=== PATIENT | female | born 1940 | race African-American/Black ===

== ENCOUNTER 2024-03-27 19:47 | Emergency (ER) | payer OTHER, SELFPAY ==
[2024-03-27 19:58] VITALS: BP 140/50; PULSE 74; RESP 15; TEMP 36.3; O2SAT 98
[2024-03-27 22:23] VITALS: BP 147/60; PULSE 73; RESP 18; O2SAT 100
--- NOTE | 2024-03-27 23:03 | ED_ITS ---
HPI - Abdominal Pain General Chief Complaint: Abdominal Pain Stated Complaint: abdominal pain Time Seen by Provider: 03/27/24 22:11 History of Present Illness HPI narrative: 83-year-old otherwise healthy female presenting to the emergency room with chief complaint of some constipation. Patient states that she felt slightly dehydrated over these last few days and daughter at bedside provides collateral formation stating that she was constipated and got some magnesium citrate at home which alleviated her symptoms and she had a small bowel movement. Patient states that she feels significantly improved after having a bowel movement while in triage. Denies any nauseousness or vomiting. No abdominal pain, pelvic pain, dysuria. No history of surgeries in the abdomen or pelvis. No changes in urination. No fever back pain. Patient was otherwise in her normal state of health but states that she does note she has not been eating and drinking as much in the last few days which daughter corroborates. No recent injuries illnesses or hospitalizations otherwise. Review of Systems 2 Review of Systems: As reviewed above in HPI Exam 2 Narrative: GENERAL: [Well-appearing, well-nourished, and in no acute distress.] HEAD: [Normocephalic, atraumatic.] EYES: [PERRLA and EOMI.] ENT: Nares clear, no rhinorrhea or epistaxis. Mucous membranes moist. NECK: Supple. CHEST: [Clear to auscultation. No respiratory distress.] HEART: [Regular rate and rhythm]. No murmur heard. [Normal peripheral pulses.] ABDOMEN: [Soft, nondistended], [nontender], [No rigidity or guarding] EXTREMITIES: Normal range of motion. [No edema.] SKIN: Warm, dry, no rash. NEURO: [No focal deficits]. Alert and oriented [x3.] PSYCH: [Normal mood and affect.] Course Vital Signs Vital signs: Vital Signs Temperature 36.3 C L 03/27/24 19:58 Pulse Rate 74 03/27/24 19:58 Respiratory Rate 15 03/27/24 19:58 Blood Pressure 140/50 L 03/27/24 19:58 Pulse Oximetry 98 03/27/24 19:58 Temperature 36.3 C L 03/27/24 19:58 Pulse Rate 73 03/28/24 00:44 Respiratory Rate 18 03/28/24 00:44 Blood Pressure 113/54 L 03/28/24 00:44 Pulse Oximetry 99 03/28/24 00:44 MDM - Abdominal Pain MDM Narrative Medical decision making narrative: 83-year-old otherwise healthy appearing female presenting to the emergency room with chief complaint of abdominal pain. One triage she got some magnesium citrate that her daughter provider for and she had a bowel movement with relief of her constipation. Patient states that her pain is now resolved and she has not had any nauseousness or vomiting, fever, chills or back pain. She has a very soft nontender nondistended abdomen overall appears well. Denies any urinary complaints and has no history of surgery to interventions the abdomen pelvis. Her vital signs are reassuring without any significant blood pressure elevations, no tachycardia, fever, hypoxia or respiratory elevations. Given her reassuring abdominal examination and improvement after bowel movement I believe likely diagnosis includes episode of constipation however with her lack of significant p.o. intake last few days she could be dehydrated. Low suspicion for infectious process such as gastroenteritis or urinary tract infection. Lab work was obtained including CBC, CMP, urinalysis. She was provided hydration with fluid bolus and re-evaluated frequently. Workup showed no significant leukocytosis, hemoglobin of 12.9 stable from baseline, normal platelets. Electrolytes within normal limits, normal creatinine, normal glucose and normal hepatic function panel. Negative lipase. Urinalysis shows a contaminated sample with squamous cells but no overt evidence of infectious process. No indications for antibiotics at this time. Patient is asymptomatic while here in the emergency department and given her improvement with hydration and going to the bathroom after using MiraLax prior to arrival I believe she is stable for discharge home at this time with prescription for MiraLax and return precautions as well as follow-up with PCP. Medical Records Attestation: I reviewed the patient's medical records. Lab Data Attestation: I reviewed the patient's lab results. 03/27/24 22:58 03/27/24 22:59 Labs: Lab Results 03/27/24 03/27/24 03/28/24 Range/Units 22:58 22:59 00:56 WBC 10.6 H (4.5-10.0) K/mm3 RBC 4.71 (4.2-5.4) M/mm3 Hgb 12.9 (12.0-15.0) g/dL Hct 40.2 (37.0-47.0) % MCV 85.4 (80-100) fl MCH 27.4 (26-34) pg MCHC 32.1 (32-36) g/dl RDW 13.1 (11.5-14.5) % Plt Count 263 (150-375) k/mm3 MPV 9.8 (7.4-10.4) fl Immature Gran % (Auto) 0.2 (0-0.5) % Neut % (Auto) 79.8 H (45.5-73.1) % Lymph % (Auto) 13.9 L (18.3-44.2) % [place] % (Auto) 5.5 (2.6-8.5) % Eos % (Auto) 0.3 (0-4.4) % Baso % (Auto) 0.3 (0.2-1.2) % Lymph # (Auto) 1.47 (0.9-3.2) K/mm3 [place] # (Auto) 0.6 (0.1-0.6) K/mm3 Eos # (Auto) 0.0 (0-0.3) K/mm3 Baso # (Auto) 0.0 (0.0-0.1) K/mm3 Abs Immat Gran (auto) 0.02 (0.00-0.031) K/mm3 Absolute Neuts (auto) 8.4 H (1.3-6.7) K/mm3 Absolute Nucleated RBC 0.000 (0.0-0.012) K/mm3 Nucleated RBC % 0.0 (0.0-0.2) % Sodium 140 (137-145) mmol/L Potassium 4.0 (3.4-5.0) mmol/L Chloride 103 (98-107) mmol/L Carbon Dioxide 32 H (22-30) mmol/L Anion Gap 5 (4-12) mmol/L BUN 22 H (7-17) mg/dL Creatinine 0.70 (0.7-1.0) mg/dL Estim Creat Clear Calc Not Reportable Estimated GFR > 60 (59 - ) Glucose 182 H (65-110) mg/dL Calcium 9.8 (8.4-10.2) mg/dL Total Bilirubin 0.5 (0.2-1.3) mg/dL AST 30 (14-36) U/L ALT 16 (6-35) U/L Alkaline Phosphatase 99 (38-126) U/L Total Protein 8.0 (6.3-8.2) g/dL Albumin 4.3 (3.5-5.1) g/dL Lipase 39 (23-300) U/L Urine Color Yellow (Yellow) Urine Appearance Cloudy H (Clear) Urine pH 5.5 (5.0-9.0) Ur Specific [place] 1.014 (1.001-1.035) Urine Protein Negative (Negative) mg/dL Urine Glucose (UA) Trace H (Negative) mg/dL Urine Ketones Negative (Negative) mg/dL Ur Blood (Man) Negative (Negative) Urine Nitrate Negative (Negative) Urine Bilirubin Negative (Negative) Urine Urobilinogen 1.0 (<2.0) mg/dL Add Ur Microanalysis Reviewed Leukocyte Esterase Rfl Trace H (Negative) CLAUS/UL Urine RBC 6-10 H (0-2) /hpf Urine WBC 0-5 (0-3) /hpf Ur Squamous Epith Cells Few (Few) /hpf Urine Bacteria 1+ H /hpf Urine Casts 6-10 Hyaline Casts Present (None) /lpf Discharge Plan Discharge Clinical Impression: Constipation, Abdominal pain Patient Disposition: Home, Self-Care Condition: Stable Instructions: Antibiotic Form, Constipation (DC), Abdominal Pain (ED) Additional Instructions: I please follow-up with your primary care provider on outpatient basis, we will prescribe the MiraLax for constipation type symptoms. If you have any worsening or recurrent abdominal pain or any new symptoms please return to the ER for evaluation. Patient Language: Bhutanese Prescriptions: New polyethylene glycol 3350 [Miralax] 17 gram/dose powder 17 g PO BID Qty: 238 0RF Follow-up/Referrals: PHYSICIAN NOT ON STAFF,NONSTAFF [Non-Staff] - Time of Disposition: 02:01
[2024-03-27 23:07] LABS: Basophils Percent Auto 0.3 % (0.2-1.2); Eosinophils Percent Auto 0.3 % (0-4.4); Hematocrit 40.2 % (37.0-47.0); Hemoglobin 12.9 g/dL (12.0-15.0); Immature Granulocyte Absolute 0.02 K/mm3 (0.00-0.031); Immature Granulocyte Percent A 0.2 % (0-0.5); Lymphocytes Absolute Auto 1.47 K/mm3 (0.9-3.2); Lymphocytes Percent Auto 13.9 % (18.3-44.2); Mean Corpuscular HGB Conc 32.1 g/dl (32-36); Mean Corpuscular Hemoglobin 27.4 pg (26-34); Mean Corpuscular Volume 85.4 fl (80-100); Mean Platelet Volume 9.8 fl (7.4-10.4); Monocytes Absolute Auto 0.6 K/mm3 (0.1-0.6); Monocytes Percent Auto 5.5 % (2.6-8.5); Neutrophils Absolute Auto 8.4 K/mm3 (1.3-6.7); Neutrophils Percent Auto 79.8 % (45.5-73.1); Platelet Count Result 263 k/mm3 (150-375); Red Blood Count 4.71 M/mm3 (4.2-5.4); Red Cell Distribution Width 13.1 % (11.5-14.5); White Blood Count 10.6 K/mm3 (4.5-10.0)
[2024-03-27 23:19] LABS: Alanine Aminotransferase 16 U/L (6-35); Albumin Level 4.3 g/dL (3.5-5.1); Alkaline Phosphatase 99 U/L (38-126); Anion Gap 5 mmol/L (4-12); Aspartate Amino Transferase 30 U/L (14-36); Bilirubin,Total 0.5 mg/dL (0.2-1.3); Blood Urea Nitrogen 22 mg/dL (7-17); Calcium 9.8 mg/dL (8.4-10.2); Carbon Dioxide 32 mmol/L (22-30); Chloride 103 mmol/L (98-107); Estimated Glomerular Filt Rate > 60; Glucose 182 mg/dL (65-110); Lipase 39 U/L (23-300); Sodium 140 mmol/L (137-145)
[2024-03-27] MEDS: LACTATED RINGERS 1,000 ML 999 ML IV CONT (23:25)
[2024-03-28 00:44] VITALS: BP 113/54; PULSE 73; RESP 18; O2SAT 99
[2024-03-28 01:13] LABS: Add Urine Microscopic? YES; Appearance Urine Cloudy (Clear); Bacteria Urine 1+ /hpf; Bilirubin Urine Negative (Negative); Blood Urine Negative (Negative); Color Urine Yellow (Yellow); Glucose Urine UA Trace mg/dL (Negative); Hyaline Casts Urine Present /lpf; Ketones Urine Negative (Negative); Leukocyte Esterase Ur Trace LEU/UL (Negative); Need Manual Microscopic Reviewed; Nitrate Urine Negative (Negative); Protein Urine Negative (Negative); Specific Grav Ur 1.014 (1.001-1.035); Squamous Epithelial Cell Urine Few /hpf (Few); WBC Urine 0-5 /hpf (0-3); pH Urine 5.5 (5.0-9.0)
[2024-03-28 02:19] VITALS: BP 145/76; PULSE 76; RESP 18; O2SAT 98
--- OUTSIDE RECORDS SUMMARY | 2024-03-31 14:18 | XMS_ITS | Referral Summary ---
Author Organization [facility] B Address [address] [place] [address] Care Team Providers Care Laundry Attendant Name Role Phone Brian Madera MD Unavailable [phone] Carmelita Olivera MD Primary Care Provide r Encounters Date Type Department Care Team Description 03/30/2024 Telephone [facility] at [address] [phone] Carmelita Olivera MD 03/27/2024 6:[address] [facility] Office Visit [facility] at [address] [place] [phone] Jacquelin Quinteros NP Constipation, unspecified constipation type (Primary Dx) 03/26/2024 Telephone [facility] Primary Care at [address] [phone] Carmelita Olivera MD Hospital Follow Up 03/26/2024 [facility] Organization [address] [place] [phone] Renetta Mcginnis MA 01/30/2024 Telephone [facility] at [address] [place] [phone] GilCarmelita Webb MD Rollator 01/30/2024 Telephone [facility] Primary Care at [address] [place] [phone] Carmelita Olivera MD Persons with Disabilities Certification for Parking Placard 01/23/2024 1:30 PM CDT Office Visit [facility] [address] [facility] [address] [place] [phone] Kate Diaz NP 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); 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) 01/20/2024 Orders Only [facility] Primary [facility] at [address] [place] [phone] Carmelita Olivera MD 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) (Primary Dx); 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) 01/02/2024 7:30 PM CDT Office Visit [facility] at [address] [place] [phone] Kristen Vilchis NP Abscess of skin of neck (Primary Dx) from Last 3 Months Allergies Active Allergy Reactions Criticality Noted Date Comments Quetiapine Hallucinations Medium 05/20/2023 Medications lancets 31 gauge miscIndication s:Type 2 diabetes mellitus with hyperglycemia, without long-term current use of insulin ([facility]) 1 Device daily 100 each 3 10/04/19 21 Active blood-glucose meter kitIndications :Type 2 diabetes mellitus with hyperglycemia, without long-term current use of insulin ([facility]) 1 Device daily 1 each 10/19/19 21 Active blood glucose diagnostic stripIndicatio ns:Type 2 diabetes mellitus with hyperglycemia, without long-term current use of insulin ([facility]) Use one strip to monitor home blood sugars daily. 100 each 3 11/08/19 21 Active coenzyme Q10 100 mg capsule Take 1 capsule (100 mg total) by mouth daily Active sodium chloride (TRISTAN 128) 5 % ophthalmic solution Administer 1 drop into both eyes as needed 02/28/20 23 Active memantine (NAMENDA) 10 mg tablet TAKE 1 TABLET BY MOUTH TWICE A DAY 180 tablet 1 09/12/19 24 Active donepeziL (ARICEPT) 5 mg tablet TAKE 1 TABLET BY MOUTH EVERY DAY AT NIGHT 90 tablet 1 10/09/19 24 Active lisinopriL (PRINIVIL,ZEST RIL) 2.5 mg tabletIndicati ons:Type 2 diabetes mellitus with hyperglycemia, without long-term current use of insulin (HCC),Hyperten winter associated with diabetes (HCC) TAKE 1 TABLET BY MOUTH EVERY DAY 90 tablet 12/18/19 24 Active atorvastatin (LIPITOR) 20 mg tabletIndicati ons:Hyperlipid emia associated with type 2 diabetes mellitus (HCC) TAKE 1 TABLET BY MOUTH EVERY DAY AT NIGHT 90 tablet 1 01/14/20 24 Active amLODIPine (NORVASC) 10 mg tabletIndicati ons:Hypertensi on associated with diabetes (HCC) TAKE 1 TABLET BY MOUTH EVERY DAY AT NIGHT 90 tablet 1 01/14/20 24 Active metFORMIN XR (GLUCOPHAGE XR) 500 mg 24 hr tabletIndicati ons:Type 2 diabetes mellitus with hyperglycemia, without long-term current use of insulin (HCC) TAKE 1 TABLET BY MOUTH EVERY DAY WITH BREAKFAST 90 tablet 1 01/14/20 24 Active LORazepam (ATIVAN) 0.5 mg tabletIndicati ons:Generalize d anxiety disorder TAKE 1 TAB BY MOUTH EVERY MORNING AND 2 TABS EVERY EVENING NEEDED FOR ANXIETY. 90 tablet 03/12/20 24 Active LORazepam (ATIVAN) 0.5 mg tabletIndicati ons:Generalize d anxiety disorder TAKE 1 TAB BY MOUTH EVERY MORNING AND 2 TABS EVERY EVENING NEEDED FOR ANXIETY. 90 tablet 02/13/20 24 024 Discontinued Active Problems Problem Noted Date Diagnosed Date Other chest pain 11/22/2023 Assessment & Plan (11/25/2023 3:28 PM CDT): New concern resolved Likely anxiety/stress induced given history of patient arguing with daughter prior to symptoms ED workup negative See above for ecg and labs F/u if no improvement, report back to ED should chest pain reoccur Nausea 10/23/2023 Assessment & Plan (10/23/2023 2:06 PM CDT): Resolved Possibly a virus that has resolved Cyst of skin 10/23/2023 Assessment & Plan (10/23/2023 2:15 PM CDT): Chronic Worsening Likely a cyst Will refer to plastics for removal Encounter to establish care 09/02/2023 Assessment & Plan (09/03/2023 9:28 AM CDT): Medical hx reviewed and discussed Continue current regimen F/u in 6 months for annual Black eye of right side 06/17/2023 Assessment & Plan (06/24/2023 10:24 PM CDT): Vision unchanged. Reassurance given. Hallucinations 04/25/2023 Assessment & Plan (06/24/2023 10:23 PM CDT): Patient to f/u with neurology, she did not tolerate Seroquel. Assessment & Plan (04/25/2023 2:[address] [facility] [place]): New start on Seroquel, take as directed. Re-evaluate need of continued use of medication at next appointment. Nail fungus 03/05/2023 Assessment & Plan (03/05/2023 1:[address] [facility] [place]): Referred back to podiatry for further treatments. 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 Assessment & Plan (06/24/2023 10:21 PM CDT): Worsening, encouraged patient to follow up with neurology. Continue Namenda. Assessment & Plan (03/05/2023 1:[address] [place]): Stable, currently on memantine. Doing well. Assessment & Plan (09/21/2022 7:35 PM CDT): Stable. Cont. Current prescription medications, memantine. Assessment & Plan (04/02/2022 4:[address] [place]): Stable. Cont. Current prescription medications. Assessment & Plan (09/05/2021 1:48 PM CDT): Worsening, does not want to discontinue Exelon patch at this time. Will consult with psychiatry for further eval/mgmt. Assessment & Plan (03/31/2021 6:[address] [place]): Will start Exelon patches. Decreased hearing of both ears 10/13/2020 Assessment & Plan (10/14/2020 6:22 PM CDT): Referral placed. Type 2 diabetes mellitus wit h hyperglycemia, without long-term current use of insulin 10/03/2020 Assessment & Plan (09/03/2023 9:14 AM CDT): The patient was counseled on a heart-healthy, diabetic-friendly diet, as well as life-style modification. Education provided on the diagnosis and risks of the disease. We will continue to monitor routine labs. Additionally, She was counseled on routine diabetic eye exams, foot exams, and other preventive care. Most recent A1c on file: Lab Results Component Value Date HGBA1C 6.7 (H) 03/18/2023 Continue regimen of metformin 500 mg daily Continue statin and LACIE inhibitor A1c ordered today F/u in 6 months Assessment & Plan (03/05/2023 1:[address] [place]): A1c at goal of less than 8.0, continue current prescription medications, atorvastatin, lisinopril, metformin xr. Assessment & Plan (09/21/2022 7:35 PM CDT): A1c at goal of less than 8.0, continue current prescription medications, atorvastatin, lisinopril, metformin xr. Assessment & Plan (04/02/2022 4:[address] [place]): A1c at goal of less than 8.0, continue current prescription medications. Assessment & Plan (10/08/2021 6:45 PM CDT): A1c at goal, cont current Rx meds. Assessment & Plan (09/05/2021 1:43 PM CDT): A1c at goal of < 8.0. Cont current mgmt. Assessment & Plan (01/09/2021 3:31 PM CDT): Tolerating metformin well. Checking blood sugars in the morning periodically. Blood pressure is well controlled. She is currently on a statin medication. Will have her continue the metformin and recheck hemoglobin A1c and CMP. Will have her follow- up in 6 months. Assessment & Plan (10/14/2020 6:21 PM CDT): Strongly encouraged patient to take medication as prescribed. Patient agreed. Referral to Diab educator placed. Added LACIE-I for kidney protection. BMI 26.0-26.9,adult 09/03/2018 Assessment & Plan (03/26/2020 8:[address] [place] [place]): Weight reduction, daily exercise and dietary modifications recommended. Assessment & Plan (12/04/2019 9:33 AM CDT): Weight reduction, daily exercise and dietary modifications recommended. Assessment & Plan (03/18/2019 12:[address] [place]): Unchanged. Encouraged patient to decrease weight, increase daily exercise, and modify diet. Hypertension associated with diabetes 06/07/2017 Assessment & Plan (09/03/2023 9:21 AM CDT): Bp in the office today BP Readings from Last 1 Encounters: 09/03/23 120/74 Continue current regimen of amlodipine 10 mg daily lisinopril 2.5 mg daily Recommend DASH diet, heart-healthy lifestyle, exercise. Discussed the risks of hypertension. F/u in 6 months Assessment & Plan (03/05/2023 1:[address] [place] [place]): Blood pressure at goal less than 140/90, continue current prescription medications, amlodipine, lisinopril. Assessment & Plan (09/21/2022 7:35 PM CDT): Blood pressure at goal less than 140/90, continue current prescription medications, lisinopril. Assessment & Plan (04/02/2022 4:[address] [place] [place]): Blood pressure is at goal of less than 140/90, continue current prescription medications. Assessment & Plan (10/08/2021 6:42 PM CDT): Elevated, patient did not take her bp meds prior to her arrival here. Encouraged patient to take her meds as directed. Assessment & Plan (10/14/2020 6:21 PM CDT): Not at goal of < 130/80. Added Lisinopril. Cont amlodipine. Assessment & Plan (09/28/2020 7:06 AM CDT): BP at goal of < 150/90. Cont current meds. Assessment & Plan (03/26/2020 8:[address] [place] [place]): Within normal range, low sodium diet recommended. Cont current meds. Assessment & Plan (12/04/2019 9:33 AM CDT): Stable. Cont. Current meds. Assessment & Plan (07/26/2019 8:22 PM CDT): Clinically improved, continue current meds. Assessment & Plan (03/18/2019 12:[address] [place] [place]): Waxing and waning, cont current meds. Assessment & Plan (09/03/2018 5:28 PM CDT): Hypertension is improving with treatment. Continue current treatment regimen. Dietary sodium restriction. Weight loss. Regular aerobic exercise. Continue current medications. Ambulatory blood pressure monitoring. Blood pressure will be reassessed at the next regular appointment. Amlodipine 10 mg qd Assessment & Plan (08/06/2018 6:36 PM CDT): Hypertension is improving with treatment. Continue current treatment regimen. Dietary sodium restriction. Weight loss. Regular aerobic exercise. Continue current medications. Ambulatory blood pressure monitoring. Blood pressure will be reassessed at the next regular appointment. Assessment & Plan (03/14/2018 12:[address] [place] [place]): Hypertension is improving with treatment. Continue current treatment regimen. Dietary sodium restriction. Weight loss. Regular aerobic exercise. Continue current medications. Ambulatory blood pressure monitoring. Blood pressure will be reassessed at the next regular appointment. Amlodipine 10 mg qd Assessment & Plan (12/06/2017 12:59 PM CDT): Hypertension is worsening. Continue current treatment regimen. Dietary sodium restriction. Regular aerobic exercise. Continue current medications. amlodipine 10mg qd Blood pressure will be reassessed at the next regular appointment. Assessment & Plan (06/07/2017 1:[address] [place]): Hypertension is unchanged. Continue current treatment regimen. Dietary sodium restriction. Regular aerobic exercise. Continue current medications. Blood pressure will be reassessed at the next regular appointment. Hyperlipidemia associated with type 2 diabetes otoniel spencer 06/07/2017 Assessment & Plan (09/02/2023 12:26 PM CDT): LDL goal of less than 100, continue current prescription medications, atorvastatin. Assessment & Plan (03/05/2023 1:[address] [place] [place]): LDL at goal of less than 100, continue current prescription medications, atorvastatin. Assessment & Plan (09/21/2022 7:34 PM CDT): LDL at goal of less than 100, continue current prescription medications, atorvastatin. Assessment & Plan (04/02/2022 4:[address] [place]): LDL at goal of less than 100, continue current prescription medications. Assessment & Plan (10/08/2021 6:46 PM CDT): LDL at goal of < 100. Cont current meds. Assessment & Plan (03/31/2021 6:[address] [place] [place]): LDL at goal. Cont current Rx meds. Assessment & Plan (10/14/2020 6:22 PM CDT): LDL at goal of < 70, cont current mgmt. Assessment & Plan (09/28/2020 7:07 AM CDT): Clinically improved, continue current meds. Assessment & Plan (03/26/2020 8:[address] [place]): Good control. Low chol diet recommended. Assessment & Plan (12/04/2019 9:33 AM CDT): Stable. Cont. Current meds. Assessment & Plan (07/26/2019 8:22 PM CDT): Stable. Cont. Current meds. Assessment & Plan (03/18/2019 12:[address] [place]): Clinically improved, continue current meds. Assessment & Plan (09/03/2018 5:29 PM CDT): Lipid abnormalities are improving with treatment. Nutritional counseling was provided. and Pharmacotherapy as ordered. Lipids will be reassessed 4 months. Atorvastatin 20 mg qd Assessment & Plan (08/06/2018 6:36 PM CDT): Lipid abnormalities are improving with treatment. Nutritional counseling was provided. and Pharmacotherapy as ordered. Lipids will be reassessed 4 months. lipitor 10 mg qhs Assessment & Plan (03/14/2018 12:[address] [place]): Lipid abnormalities are improving with treatment. Nutritional counseling was provided. and Pharmacotherapy as ordered. Lipids will be reassessed 4 months. Atorvastatin 20mg po qd Assessment & Plan (12/06/2017 1:00 PM CDT): Lipid abnormalities are improving with treatment. Nutritional counseling was provided. and Pharmacotherapy as ordered. lipitor 20mg qd Lipids will be reassessed in 6 months. Assessment & Plan (06/07/2017 1:[address] [place]): Lipid abnormalities are unchanged. Nutritional counseling was provided. and Pharmacotherapy as ordered. Lipids will be reassessed in 6 months. Generalized anxiety disorder 06/07/2017 Assessment & Plan (07/31/2023 3:45 PM CDT): Clinically improved, continue current prescription medications, lorazepam. Assessment & Plan (06/24/2023 10:22 PM CDT): Agree to increase lorazepam to 0.5 mg qam and 1 mg qpm. Assessment & Plan (04/25/2023 2:[address] [place]): Will add Seroquel to daily regiment. Continue lorazepam as needed. Assessment & Plan (03/05/2023 1:[address] [place]): Clinically improved, continue current prescription medications, lorazepam. Assessment & Plan (09/21/2022 7:34 PM CDT): Clinically improved, continue current prescription medications, lorazepam. Assessment & Plan (04/02/2022 4:[address] [place]): Clinically improved, continue current prescription medications. Assessment & Plan (10/08/2021 6:46 PM CDT): Clinically improved, continue current prescription medications. Assessment & Plan (03/31/2021 6:[address] [place] [place]): Stable. Cont. Current prescription medications. Assessment & Plan (01/09/2021 3:31 PM CDT): Anxiety has been controlled. Will continue on lorazepam p.r.n. Assessment & Plan (09/28/2020 7:07 AM CDT): Stable. Cont. Current meds. Assessment & Plan (03/26/2020 8:[address] [place]): Clinically improved, continue current meds. Assessment & Plan (12/04/2019 9:33 AM CDT): Clinically improved, continue current meds. Assessment & Plan (07/26/2019 8:22 PM CDT): Clinically improved, continue current meds. Assessment & Plan (03/18/2019 12:[address] [place]): Clinically improved, continue current meds. Assessment & Plan (09/03/2018 5:29 PM CDT): Psychological condition is improving with treatment. Continue current treatment regimen. Regular aerobic exercise. Psychological condition will be reassessed at the next regular appointment. Lorazepam 0.5 mg q6h prn Assessment & Plan (08/06/2018 6:37 PM CDT): Stable. Cont. Current meds. Assessment & Plan (03/14/2018 12:[address] [place] [place]): Stable. Cont. Current meds. Lorazepam 0.5 mg q6 h prn Assessment & Plan (12/06/2017 1:00 PM CDT): At baseline, continue lorazepam 0.5 mg q6h prn Assessment & Plan (06/07/2017 1:[address] [place]): Stable. Refill given. Resolved Problems Problem Noted Date Diagnosed Date Resolved Date Pure hypercholesterolemia 03/30/2021 Elevated glucose 09/28/2020 10/13/2020 Immunizations Name Administration Dates Next Due Influenza, Quadrivalent, Hig h Dose, Preservative Free, Intrr 03/05/2023,04/02/2022,01/09/2021,03/24 Influenza, Trivalent, High D ose, Split, Preservative Free, Intramuscular 03/18/2019,03/14/2018 Influenza, Unspecified 03/08/2017,01/14/2016 Pfizer SARS-CoV-2 Monovalent Vaccination (12+ Yrs) PURPLE 09/24/2020,09/03/2020 Pneumococcal Conjugate PCV 13 03/14/2018 Pneumococcal Polysaccharide PPV23 02/06/2011 Tdap 01/14/2016 Tetanus Toxoid, Unspecified 02/06/2011 Social History Tobacco Use Types Packs/Day Years Used Date Smoking Tobacco: Never Smokeless Tobacco: Never Tobacco Cessation:Counseling Given: Not Answered Alcohol Use Standard Drinks/Week Comments No 0 (1 standard drink = 0.6 oz pur e alcohol) [facility] Utilities Answer Date Recorded In the past 12 months has th e electric, gas, oil, or water company threatened to shut off services in your home? No 12/17/2023 Social Connection and Isolat ion Panel [NHANES] Answer Date Recorded Frequency of Communication w ith Friends and Family Not on file 12/17/2023 How often do you get togethe r with friends or relatives? More than three times a week 12/17/2023 How often do you attend chur ch or christianity services? Never 12/17/2023 Do you belong to any clubs o r organizations such as orthodoxy groups, unions, fraternal or athletic groups, or school groups? No 12/17/2023 How often do you attend meet ings of the clubs or organizations you belong to? Never 12/17/2023 Are you , , di vorced, , never , or living with a partner? 12/17/2023 AUDIT-C Answer Date Recorded Q1: How often do you have a drink containing alcohol? Never 10/23/2023 Q2: How many drinks containi ng alcohol do you have on a typical day when you are drinking? Patient does not drink Q3: How often do you have si x or more drinks on one occasion? Never 10/23/2023 Overall Financial Resource Strain (CARDIA) Answe r Date Recorded How hard is it for you to pa y for the very basics like food, housing, medical care, and heating? Not hard at all 12/17/2023 PHQ-2 Answer Date Recorded PHQ-2 Total Score (If total score is 3 or more points, staff should administer the PHQ-9) 0 11/25/2023 Hunger Vital Sign Answer Date Recorded Within the past 12 months, y ou worried that your food would run out before you got the money to buy more. Never true 12/17/19 24 Within the past 12 months, t he food you bought just didn't last and you didn't have money to get more. Never true 12/17/2023 PRAPARE - Transportation Answer Date Re corded In the past 12 months, has l ack of transportation kept you from medical appointments or from getting medications? No 06/2023 In the past 12 months, has l ack of transportation kept you from meetings, work, or from getting things needed for daily living? No 12/17/2023 Housing Stability Vital Sign Answer Roger e Recorded In the last 12 months, was t here a time when you were not able to pay the mortgage or rent on time? No 12/17/2023 In the past 12 months, how m any times have you moved where you were living? 1 12/17/2023 At any time in the past [address] [facility], were you homeless or living in a senior care (including now)? No 12/17/2023 Personal Safety Answer Date Recorded Have you ever been in or are you currently in a harmful physical or emotional relationship or is someone making you feel afraid or unsafe? Denies 11/20/2023 Comments No Sex and Gender Information Value Date Recorded Sex Assigned at Not on file Legal Sex Female 8:[address] [facility] [place] Gender Identity Female 04/25/2021 2:[address] [place] Sexual Orientation Straight 04/25/2021 2: [address] [place] Last Filed Vital Signs Vital Sign Reading Time Taken Comments Blood Pressure 134/78 03/27/2024 6:[address] [place] Pulse 67 03/27/2024 6:[address] [place] Temperature 36.6 ??C (97.8 ??F) 03/27/2024 6:33 PM CS T Respiratory Rate 15 03/27/2024 6:[address] [place] Oxygen Saturation 99% 03/27/2024 6:[address] [place] [place] Inhaled Oxygen Concentration - - Weight 58.1 kg (128 lb) 03/27/2024 6:[address] [facility] [place] Height 147.3 cm (4' 10 ) 03/27/2024 6:[address] [place] [place] Body Mass Index 26.75 03/27/2024 6:[address] [place] [place] Plan of Treatment Not on file Procedures Procedure Name Priority Date/Time Associated Diagnosis Comments [place] INCISION & DRAINAGE ABSCESS SIMPLE/SINGLE Routine 01/02/2024 7:30 PM CDT Abscess of skin of neck EGFR STAT 11/20/2023 1:47 PM CDT HEMOGLOBIN A1C Routine 09/03/2023 9:42 AM CDT Type 2 diabetes mellitus with hyperglycemia, without long-term current use of insulin (CMS/HCC) (HCC) DIABETES EYE EXAM Routine 05/21/2023 LIPID PANEL Routine 03/18/2023 1:[address] [place] Type 2 diabetes mellitus with hyperglycemia, without long-term current use of insulin (CMS/HCC) (HCC) Hypertension associated with diabetes (HCC) ALBUMIN CREATININE RATIO, URINE Routine 03/18/2023 1:[address] [place] Type 2 diabetes mellitus with hyperglycemia, without long-term current use of insulin (CMS/HCC) (HCC) DIABETES FOOT EXAM Routine 03/05/2023 from Last 3 Months or Most Recently Relevant to Health Maintenance Results * [place] INCISION & DRAINAGE ABSCESS SIMPLE/SINGLE (01/02/2024 7:30 PM CDT) Narrative Kristen Vilchis NP - 01/02/2024 7:30 PM CDT Kristen Vilchis NP ? 01/02/2024 ??7:55 PM Incision and Drainage Performed by: Kristen Vilchis NP Authorized by: Kristen Vilchis NP ?? Consent Given by: ??Patient and guardian Site marked: the procedure site was marked ?? Timeout: prior to procedure the correct patient, procedure, and site was verified ?? Verbal consent obtained: Yes ?? Written consent obtained: No ?? Risks, alternatives, and patient questions discussed: Yes ?? Type: ??Abscess Body area: ??Neck Location details: ??Left anterior neck Anesthesia: ??Local infiltration Medications: ??1 mL lidocaine (PF) 10 mg/mL (1 %) Scalpel size: ??15 Incision type: ??Single straight Incision depth: ??Subcutaneous Complexity: ??Simple Drainage: ??Purulent Drainage amount: ??Moderate Wound treatment: ??Wound left open Packing material: ??None Patient tolerance: ??Patient tolerated the procedure well with no immediate complications us Kristen Vilchis NP IN CLINIC/BEDSIDE ORD ERABLES Final Result * eGFR (11/20/2023 1:47 PM CDT) eGFR 87 >=60 mL/min/1. 73 m2 Comment: Interpretive Data Reference Interval Normal ?>/= 90 mL/min/1.73m2 Mildly decreased* ? 60 - 89 mL/min/1.73m2 Mildly to moderately decreased ?45 - 59 mL/min/1.73m2 Moderately to severely decreased ??30 - 44 mL/min/1.73m2 Severely decreased ?15 - 29 mL/min/1.73m2 Kidney Failure ?< 15 ??mL/min/1.73m2 *Relative to young adult level Estimated glomerular filtration rate is determined by the 2020 CKD-EPI equation recommended by the National [employer] (A Unifying Approach to GFR Estimation: Recommendations of the NKF-ASK Task Force on Reassessing the Inclusion of Race in Diagnosing Kidney Disease, JASN 2020). The CKD-EPI equation should not be used for patients with unstable renal function and has not been validated in children and those over 70. Current interpretive data was last reviewed 2021. Blood 11/20/2023 1:47 PM CDT 11/20/2023 1:57 PM CDT us Tiago Kerr MD LAB BLOOD ORDERABLES Final Res ult [facility] ([place]) 1 [facility] Department [place] [address] * (ABNORMAL) Hemoglobin A1c (09/03/2023 9:42 AM CDT) Hgb A1C 6.7(H) 4.0 - 5.6 % Estimated Average Glucose 146 mg/dL [facility] ([place]) Comment: The ADA recommends reporting an estimated Average Glucose (eAG) with all Hemoglobin A1c results using the equation derived from a study of 507 normal and diabetic adults. ??Minority populations were underrepresented and children were not included. ?? (Diabetes Care 31:8731-0530, 2007). ??The eAG is not equivalent to a fasting glucose. Blood 09/03/2023 9:42 AM CDT 09/03/2023 10:23 AM CDT Carmelita Olivera MD LAB BLOOD ORDERABLES Final Result [facility] ([place]) 1 [facility] Department [place] [address] * DIABETES EYE EXAM (05/21/2023) [facility] SCRIBED DIABETIC DILATED EYE EXAM Normal Historical Provider HEALTH MAINTENANCE Final Result * Albumin Creatinine Ratio, Urine (03/18/2023 1:[address] LIGHT WIRER) [facility] Albumin Ur 47.4 mg/L [facility] ([place]) Comment: Interpretive Data No reference range established. Current interpretive data was last revised 2018. Testing performed by: [address] [place]., [address] Creatinine Ur 383.9 mg/dL [facility] ([place]) Comment: Interpretive Data No reference range established. Current interpretive data was last revised 2018. Testing performed by: [facility], [address] [place] [address]., [id number] Albumin Creatinine Ratio, Ur 12 1 - 29 mg/g [facility] ([place]) Comment:Testing performed by : [address] [address] Urine 03/18/2023 1:[address] LIGHT WIRER 03/19/2023 9:[address] LIGHT WIRER us Jocelynn Coy DO LAB URINE ORDERABLES Final Result [facility] ([place]) 1 [facility] Department [place] [address] * Lipid panel (03/18/2023 1:[address] LIGHT WIRER) Cholesterol 167 30 - 199 mg/dL [facility] ([place]) Comment: Interpretive Data Ages < or = 19 years ??Acceptable: ? <170 mg/dL ??Borderline high: ??170-199 mg/dL ??High: ? >or= 200 mg/dL Ages > or = 20 years ??Desirable: ?<200 mg/dL ??Borderline high: ??200-239 mg/dL ??High: ? >or= 240 mg/dL Literature References: 1. Expert Panel on Integrated Guidelines for Cardiovascular Health and Risk Reduction in Children and Adolescents. Pediatrics 2011;128:S213 2. NCEP Expert Panel. Circulation 2004;110:227 Current Interpretive Data was last revised on 2017. Triglycerides 86 <=149 mg/dL [facility] ([place]) Comment: Interpretive Data Ages < or = 9 years ??Acceptable: ? <75 mg/dL ??Borderline high: ??75-99 mg/dL ??High: ? >or= 100 mg/dL Ages 10 to 20 years ??Acceptable: ? <90 mg/dL ??Borderline high: ??90-129 mg/dL ??High: ? >or= 130 mg/dL Ages > or = 20 years ??Desirable: ?<150 mg/dL ??Borderline high: ??150-199 mg/dL ??High: ? 200-499 mg/dL ?Very high: ?? >or= 499 mg/dL Literature References: 1. Expert Panel on Integrated Guidelines for Cardiovascular Health and Risk Reduction in Children and Adolescents. Pediatrics 2011;128:S213 2. NCEP Expert Panel. Circulation 2004;110:227 Current Interpretive Data was last revised on 2017. HDL 74 >=40 mg/dL JOSE LIRIANO) Comment: Interpretive Data Ages < or = 19 years ??Acceptable: ? >45 mg/dL ??Borderline low: ?? 40-45 mg/dL ??Low: ? <40 mg/dL Ages > or = 20 years ??Desirable: ?>or= 60 mg/dL ??Low: ? <40 mg/dL Literature References: 1. Expert Panel on Integrated Guidelines for Cardiovascular Health and Risk Reduction in Children and Adolescents. Pediatrics 2011;128:S213 2. NCEP Expert Panel. Circulation 2004;110:227 Current Interpretive Data was last revised on 2017. LDL, calculated 76 <=129 mg/dL [facility] ([place]) Comment: Interpretive Data Ages < or = 19 years ??Acceptable: ? <110 mg/dL ??Borderline high: ??110-129 mg/dL ??High: ?>or= 130 mg/dL Ages > or = 20 years ??Optimal: ? <100 mg/dL ??Near optimal: ?100-129 mg/dL ??Borderline high: ?? 130-159 mg/dL ??High: ?>160 mg/dL Literature References: 1. Expert Panel on Integrated Guidelines for Cardiovascular Health and Risk Reduction in Children and Adolescents. Pediatrics 2011;128:S213 2. NCEP Expert Panel. Circulation 2004;110:227 Current Interpretive Data was last revised on 2017. Non-HDL Cholesterol 93 mg/dL [facility] ([place]) Comment: Interpretive Data Ages < or = 19 years ??Acceptable: ?<120 mg/dL ??Borderline high: ??120-144 mg/dL ??High: ?>145 mg/dL Ages > or = 20 years ??When triglycerides are >200 mg/dL, Non-HDL cholesterol is a secondary target of ? therapy with treatment goals that are 30 mg/dL greater than the LDL cholesterol target. ? Literature References: 1. Expert Panel on Integrated Guidelines for Cardiovascular Health and Risk Reduction in Children and Adolescents. Pediatrics 2011;128:S213 2. NCEP Expert Panel. Circulation 2004;110:227 Current Interpretive Data was last revised on 2017. Chol/HDL ratio 2 [facility] ([place]) Blood 03/18/2023 1:[address] LIGHT WIRER 03/18/2023 3:[address] LIGHT WIRER Jocelynn Coy DO LAB BLOOD ORDERABLES Final Result [facility] ([place]) 1 [facility] Department [place] [address] * DIABETES FOOT EXAM (03/05/2023) SCRIBED DIABETIC FOOT EXAM Normal Historical Provider MD HEALTH MAINTENANCE Final Result from Last 3 Months or Most Recently Relevant to Health Maintenance Insurance [facility] Member Subscriber Plan / Payer (Ef fective 2017-Present) Name:Annita Bose Relation to Subscriber:Self Name:Annita Bose Payer ID:[id number] (NAIC) Type:MEDICARE RISK OTHER Address: [place] [id number] [place] [address] [facility] Member Subscriber Plan / Payer ( fective 2017-Present) Name:Annita Bose Relation to Subscriber:Self Name:Annita Bose Payer ID:[id number] (NAIC) Type:MEDICARE RISK OTHER Address: [place] [id number] Care Teams Laundry Attendant Relationship Specialty Start Date End Date Carmelita Olivera MD [address] [facility] [place] [address] PCP - General Family Medicine 09/03/23 Brian Madera MD [address] [facility] [address] [place] [address] Consulting Physician Neurology 04/02/22
--- OUTSIDE RECORDS SUMMARY | 2024-03-31 14:18 | XMS_ITS | Encounter Summary ---
Author Organization [facility] Address [address] [place] [address] Phone Care Team Providers Care Steelworker Name Role Phone Jocelynn Coy Primary Care Provider [phone] Reason for Visit * Reason Comments Cough Generalized Body Aches Encounter Details Date Type Department Care Team (Latest Contact Info) Description 04/20/2023 8:40 AM VMWARE ENGINEER [facility] [address] [place] [address] Shaylee Vogel, SAMPLE GRINDER, GROUP WORK PROGRAM DIRECTOR [address] [place] [address] COVID-19 (Primary Dx); Cough in adult Discharge Disposition: Discharged to home or Selfcare Social History Tobacco Use Types Packs/Day Years Used Date Smoking Tobacco: Never Smokeless Tobacco: Never Tobacco Cessation:Counseling Given: Not Answered Comments No Sex and Gender Information Value Date Recorded Sex Assigned at Not on file Legal Sex Female 9:28 PM CDT Gender Identity Not on file Sexual Orientation Not on file documented as of this encounter Last Filed Vital Signs Vital Sign Reading Time Taken Comments Blood Pressure 122/60 04/20/2023 8:31 AM VMWARE ENGINEER Pulse 66 04/20/2023 8:31 AM VMWARE ENGINEER Temperature 35.9 ??C (96.6 ??F) 04/20/2023 8:31 AM CS T Respiratory Rate 18 04/20/2023 8:31 AM VMWARE ENGINEER Oxygen Saturation 98% 04/20/2023 8:31 AM VMWARE ENGINEER Inhaled Oxygen Concentration - - Weight 59.9 kg (132 lb) 04/20/2023 8:31 AM VMWARE ENGINEER Height - - Body Mass Index - - documented in this encounter Patient Instructions * Patient Instructions* Shaylee Vogel APRN, CNP - 04/20/2023 8:40 AM VMWARE ENGINEER You need to quarantine for at least five days or until your symptoms have resolved. Cover your cough, wash hands frequently. Observe for worsening signs and symptoms. If you develop shortness of breath go to the ER. Tylenol/ Motrin per package directions for fever/chills. OTC cough/cold medications per package directions as desired. If you have high blood pressure you should use Coricidin HBP. Humidifier to the bedroom at night Push fluids Follow up with your pcp in 10-14 days or as needed. RE ENGINEER * Attachments The following attachments cannot be sent through Care Everywhere. * COVID-19: Quarantine and Isolation - [facility] (05/11/21) ([place]) * COVID-19: What to Do If You Are Sick - [facility] (03/22/2021) ([place]) documented in this encounter Progress Notes * Gricelda Green RMA - 04/20/2023 8:40 AM CST Annita Tasia complains of Pt is being seen for a cough, body aches. Pt took a positive covid test. Today's Review of Systems Respiratory: Positive for cough. RE ENGINEER * Gricelda Green RMA - 04/20/2023 8:40 AM CST Per order of Shaylee Vogel APRN, CNP bilateral nasal swab collected for POCT COVID. Patient tolerated well. RE ENGINEER * Shaylee Vogel APRN, CNP - 04/20/2023 8:40 AM CST HPI: Annita Dozier is a 82 y.o. female in the prompt care today for body aches, sore throat, Ruth cough. She has not had a fever or chills. She has had slight headache. Symptoms started Saturday Severity of symptoms is mild Symptoms are has slightly improved Patient is currently taking over the counter ibuprofen and zinc for the symptoms. Smoker: No No pertinent Past, family, or social history was noted There is no problem list on file for this patient. ROS: Review of Systems Constitutional: Negative for chills, fatigue and fever. HENT: Positive for congestion and sore throat. Negative for ear pain, postnasal drip, rhinorrhea, sinus pressure and sinus pain. Eyes: Negative for pain and visual disturbance. Respiratory: Positive for cough. Negative for shortness of breath. Cardiovascular: Negative for chest pain and palpitations. Gastrointestinal: Negative for abdominal pain and vomiting. Genitourinary: Negative for dysuria and hematuria. Musculoskeletal: Positive for myalgias. Negative for arthralgias and back pain. Skin: Negative for color change and rash. Neurological: Positive for headaches. Negative for seizures and syncope. All other systems reviewed and are negative. PE: BP 122/60 (BP Location: Right Arm, BP Position: Sitting, BP Cuff Size: Regular) Pulse 66 Temp 96.6 ??F (35.9 ??C) (Temporal) Resp 18 Wt 132 lb (59.9 kg) SpO2 98% Physical Exam Vitals and nursing note reviewed. Constitutional: Appearance: Normal appearance. She is normal weight. HENT: Right Ear: Tympanic membrane, ear canal and external ear normal. Left Ear: Tympanic membrane, ear canal and external ear normal. Nose: Nose normal. No congestion or rhinorrhea. Mouth/Throat: Mouth: Mucous membranes are moist. Pharynx: Oropharynx is clear. No oropharyngeal exudate or posterior oropharyngeal erythema. Eyes: Conjunctiva/sclera: Conjunctivae normal. Cardiovascular: Rate and Rhythm: Normal rate and regular rhythm. Pulses: Normal pulses. Heart sounds: Normal heart sounds. Pulmonary: Effort: Pulmonary effort is normal. No respiratory distress. Breath sounds: Normal breath sounds. Musculoskeletal: Cervical back: Neck supple. Lymphadenopathy: Cervical: No cervical adenopathy. Skin: General: Skin is warm and dry. Neurological: Mental Status: She is alert. ASSESSMENT/PLAN: Diagnoses and all orders for this visit: COVID-19 Cough in adult - POC SARS-COV-2 BY MOLECULAR Other orders - amLODIPine (NORVASC) 10 MG Tablet; Take 10 mg by mouth nightly. - atorvastatin (LIPITOR) 20 MG Tablet; Take 20 mg by mouth nightly. - lisinopril (PRINIVIL, ZESTRIL) 2.5 MG Tablet; Take 2.5 mg by mouth daily. - LORazepam (ATIVAN) 0.5 MG Tablet; TAKE 1 TABLET BY MOUTH NEEDED FOR ANXIETY. - memantine (NAMENDA) 10 MG Tablet; Take 10 mg by mouth 2 times daily. - metFORMIN (GLUCOPHAGE-XR) 500 MG TABLET SR 24 HR; TAKE 1 TABLET BY MOUTH EVERY DAY WITH BREAKFAST - Ulster-3 1000 MG Capsule; Take by mouth. Patient Instructions You need to quarantine for at least five days or until your symptoms have resolved. Cover your cough, wash hands frequently. Observe for worsening signs and symptoms. If you develop shortness of breath go to the ER. Tylenol/ Motrin per package directions for fever/chills. OTC cough/cold medications per package directions as desired. If you have high blood pressure you should use Coricidin HBP. Humidifier to the bedroom at night Push fluids Follow up with your pcp in 10-14 days or as needed. Chief complaint and all history documented by ancillary staff were reviewed and verified, with additions or corrections, as appropriate. RE ENGINEER documented in this encounter Plan of Treatment Not on file documented as of this encounter Procedures Procedure Name Priority Date/Time Associated Diagnosis Comments POC SARS-COV-2 BY MOLECULAR Routine 04/20/2023 8:39 AM VMWARE ENGINEER Cough in adult documented in this encounter Results * (ABNORMAL) POC SARS-COV-2 BY MOLECULAR (04/20/2023 8:39 AM VMWARE ENGINEER) SARSCOV2 Positive(A ) Negative, INVALID RESULT PROCEDURE CONTROL Valid 04/20/2023 8:39 AM VMWARE ENGINEER Shaylee Vogel APRN, CNP POINT OF CARE TEST ING (MANUAL) Final Result documented in this encounter Visit Diagnoses Diagnosis COVID-19- Primary Cough in adult documented in this encounter Additional Health Concerns Infection Onset Date Last Indicated Resolved Time COVID - 19 04/20/2023 04/20/2023 04/20/2023 8:46 AM VMWARE ENGINEER COVID - 19 Confirmed 04/20/2023 04/20/2023 024 12:16 AM VMWARE ENGINEER documented as of this encounter Care Teams Steelworker Relationship Specialty Start Date End Date Jocelynn Coy DO [address] [facility] [address] [place] [id number] PCP - General Family Medicine 04/20/23 03/24/24 documented as of this encounter
--- OUTSIDE RECORDS SUMMARY | 2024-03-31 14:18 | XMS_ITS | Encounter Summary ---
Author Organization [facility] Care Team Providers Care Timber Surveyor Name Role Phone Carmelita Olivera MD Primary Care Provide r Encounter Details Date Type Department Care Team (Latest Contact Info) Description 03/25/2024 Travel Social History Tobacco Use Types Packs/Day Years Used Date Smoking Tobacco: Never Smokeless Tobacco: Never Comments No Sex and Gender Information Value Date Recorded Sex Assigned at Not on file Legal Sex Female 9:28 PM CDT Gender Identity Not on file Sexual Orientation Not on file documented as of this encounter Plan of Treatment Not on file documented as of this encounter Visit Diagnoses Not on filedocumented in this encounter Care Teams Timber Surveyor Relationship Specialty Start Date End Date Carmelita Olivera MD [address] [place] [address] RACHAEL GARCIA [id number] PCP - General Family Medicine 03/25/24 documented as of this encounter
--- OUTSIDE RECORDS SUMMARY | 2024-03-31 14:18 | XMS_ITS | Encounter Summary ---
Author Organization [facility] Care Team Providers Care Catcher Plug Name Role Phone Jocelynn Coy DO Primary Care Provider [phone] Encounter Details Date Type Department Care Team (Latest Contact Info) Description 04/20/2023 Travel Social History Tobacco Use Types Packs/Day [...] Diagnoses Not on filedocumented in this encounter Additional Health Concerns Infection Onset Date Last Indicated Resolved Time COVID - 19 04/20/2023 04/20/2023 04/20/2023 8:46 AM SWING SAW OPERATOR COVID - 19 Confirmed 04/20/2023 04/20/2023 024 12:16 AM SWING SAW OPERATOR documented as of this encounter Care Teams Catcher Plug Relationship Specialty Start Date End Date Jocelynn Coy DO [address] [place] [address] R[place]HAEL GARCIA [id number] PCP - General Family Medicine 04/20/23 03/24/24 documented as of this encounter
--- OUTSIDE RECORDS SUMMARY | 2024-03-31 14:18 | XMS_ITS | Clinical Summary ---
Author Organization [facility] Medical Office Building B Address [address] [place] [address] Care Team Providers Care Record Label Internship Name Role Phone Brian Madera MD Unavailable [phone] Carmelita Olivera MD Primary Care Provide r Allergies Active Allergy Reactions Criticality Noted Date Comments Quetiapine Hallucinations Medium 05/20/2023 Medications lancets 31 gauge miscIndication s:Type 2 diabetes mellitus with hyperglycemia, without long-term current use of insulin ([facility]) 1 Device daily 100 each 3 10/04/19 21 Active blood-glucose meter kitIndications :Type 2 diabetes mellitus with hyperglycemia, without long-term current use of insulin ([facility]) 1 Device daily 1 each 10/19/19 21 Active blood glucose diagnostic stripIndicatio ns:Type 2 diabetes mellitus with hyperglycemia, without long-term current use of insulin ([facility]) Use one strip to monitor home blood [...] Seroquel. Assessment & Plan (04/25/2023 2:42 PM ELIGIBILITY CONSULTANT): New start on Seroquel, take as directed. Re-evaluate need of continued use of medication at next appointment. Nail fungus 03/05/2023 Assessment & Plan (03/05/2023 1:36 PM ELIGIBILITY CONSULTANT): Referred back to podiatry for further treatments. 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 Assessment & Plan (06/24/2023 10:21 PM CDT): Worsening, encouraged patient to follow up with neurology. Continue Namenda. Assessment & Plan (03/05/2023 1:36 PM ELIGIBILITY CONSULTANT): Stable, currently on memantine. Doing well. Assessment & Plan (09/21/2022 7:35 PM CDT): Stable. Cont. Current prescription medications, memantine. Assessment & Plan (04/02/2022 4:24 PM ELIGIBILITY CONSULTANT): Stable. Cont. Current prescription medications. Assessment & Plan (09/05/2021 1:48 PM CDT): Worsening, does not want to discontinue Exelon patch at this time. Will consult with psychiatry for further eval/mgmt. Assessment & Plan (03/31/2021 6:26 PM ELIGIBILITY CONSULTANT): Will start Exelon patches. Decreased hearing of [...] months Assessment & Plan (03/05/2023 1:35 PM ELIGIBILITY CONSULTANT): A1c at goal of less than 8.0, continue current prescription medications, atorvastatin, lisinopril, metformin xr. Assessment & Plan (09/21/2022 7:35 PM CDT): A1c at goal of less than 8.0, continue current prescription medications, atorvastatin, lisinopril, metformin xr. Assessment & Plan (04/02/2022 4:24 PM ELIGIBILITY CONSULTANT): A1c at goal of less than 8.0, [...] 09/03/2018 Assessment & Plan (03/26/2020 8:15 PM ELIGIBILITY CONSULTANT): Weight reduction, daily exercise and dietary modifications recommended. Assessment & Plan (12/04/2019 9:33 AM CDT): Weight reduction, daily exercise and dietary modifications recommended. Assessment & Plan (03/18/2019 12:18 PM ELIGIBILITY CONSULTANT): Unchanged. Encouraged patient to decrease weight, increase [...] months Assessment & Plan (03/05/2023 1:31 PM ELIGIBILITY CONSULTANT): Blood pressure at goal less than 140/90, continue current prescription medications, amlodipine, lisinopril. Assessment & Plan (09/21/2022 7:35 PM CDT): Blood pressure at goal less than 140/90, continue current prescription medications, lisinopril. Assessment & Plan (04/02/2022 4:24 PM ELIGIBILITY CONSULTANT): Blood pressure is at goal of less [...] meds. Assessment & Plan (03/26/2020 8:15 PM ELIGIBILITY CONSULTANT): Within normal range, low sodium diet recommended. Cont current meds. Assessment & Plan (12/04/2019 9:33 AM CDT): Stable. Cont. Current meds. Assessment & Plan (07/26/2019 8:22 PM CDT): Clinically improved, continue current meds. Assessment & Plan (03/18/2019 12:17 PM ELIGIBILITY CONSULTANT): Waxing and waning, cont current meds. Assessment [...] appointment. Assessment & Plan (03/14/2018 12:51 PM ELIGIBILITY CONSULTANT): Hypertension is improving with treatment. Continue current [...] appointment. Assessment & Plan (06/07/2017 1:13 PM ELIGIBILITY CONSULTANT): Hypertension is unchanged. Continue current treatment regimen. Dietary sodium restriction. Regular aerobic exercise. Continue current medications. Blood pressure will be reassessed at the next regular appointment. Hyperlipidemia associated with type 2 diabetes otoniel spencer 06/07/2017 Assessment & Plan (09/02/2023 12:26 PM CDT): LDL goal of less than 100, continue current prescription medications, atorvastatin. Assessment & Plan (03/05/2023 1:36 PM ELIGIBILITY CONSULTANT): LDL at goal of less than 100, continue current prescription medications, atorvastatin. Assessment & Plan (09/21/2022 7:34 PM CDT): LDL at goal of less than 100, continue current prescription medications, atorvastatin. Assessment & Plan (04/02/2022 4:24 PM ELIGIBILITY CONSULTANT): LDL at goal of less than 100, continue current prescription medications. Assessment & Plan (10/08/2021 6:46 PM CDT): LDL at goal of < 100. Cont current meds. Assessment & Plan (03/31/2021 6:27 PM ELIGIBILITY CONSULTANT): LDL at goal. Cont current Rx meds. Assessment & Plan (10/14/2020 6:22 PM CDT): LDL at goal of < 70, cont current mgmt. Assessment & Plan (09/28/2020 7:07 AM CDT): Clinically improved, continue current meds. Assessment & Plan (03/26/2020 8:15 PM ELIGIBILITY CONSULTANT): Good control. Low chol diet recommended. Assessment & Plan (12/04/2019 9:33 AM CDT): Stable. Cont. Current meds. Assessment & Plan (07/26/2019 8:22 PM CDT): Stable. Cont. Current meds. Assessment & Plan (03/18/2019 12:17 PM ELIGIBILITY CONSULTANT): Clinically improved, continue current meds. Assessment & [...] qhs Assessment & Plan (03/14/2018 12:52 PM ELIGIBILITY CONSULTANT): Lipid abnormalities are improving with treatment. Nutritional counseling was provided. and Pharmacotherapy as ordered. Lipids will be reassessed 4 months. Atorvastatin 20mg po qd Assessment & Plan (12/06/2017 1:00 PM CDT): Lipid abnormalities are improving with treatment. Nutritional counseling was provided. and Pharmacotherapy as ordered. lipitor 20mg qd Lipids will be reassessed in 6 months. Assessment & Plan (06/07/2017 1:13 PM ELIGIBILITY CONSULTANT): Lipid abnormalities are unchanged. Nutritional counseling was provided. and Pharmacotherapy as ordered. Lipids will be reassessed in 6 months. Generalized anxiety disorder 06/07/2017 Assessment & Plan (07/31/2023 3:45 PM CDT): Clinically improved, continue current prescription medications, lorazepam. Assessment & Plan (06/24/2023 10:22 PM CDT): Agree to increase lorazepam to 0.5 mg qam and 1 mg qpm. Assessment & Plan (04/25/2023 2:41 PM ELIGIBILITY CONSULTANT): Will add Seroquel to daily regiment. Continue lorazepam as needed. Assessment & Plan (03/05/2023 1:33 PM ELIGIBILITY CONSULTANT): Clinically improved, continue current prescription medications, lorazepam. Assessment & Plan (09/21/2022 7:34 PM CDT): Clinically improved, continue current prescription medications, lorazepam. Assessment & Plan (04/02/2022 4:23 PM ELIGIBILITY CONSULTANT): Clinically improved, continue current prescription medications. Assessment & Plan (10/08/2021 6:46 PM CDT): Clinically improved, continue current prescription medications. Assessment & Plan (03/31/2021 6:26 PM ELIGIBILITY CONSULTANT): Stable. Cont. Current prescription medications. Assessment & Plan (01/09/2021 3:31 PM CDT): Anxiety has been controlled. Will continue on lorazepam p.r.n. Assessment & Plan (09/28/2020 7:07 AM CDT): Stable. Cont. Current meds. Assessment & Plan (03/26/2020 8:15 PM ELIGIBILITY CONSULTANT): Clinically improved, continue current meds. Assessment & Plan (12/04/2019 9:33 AM CDT): Clinically improved, continue current meds. Assessment & Plan (07/26/2019 8:22 PM CDT): Clinically improved, continue current meds. Assessment & Plan (03/18/2019 12:17 PM ELIGIBILITY CONSULTANT): Clinically improved, continue current meds. Assessment & Plan (09/03/2018 5:29 PM CDT): Psychological condition is improving with treatment. Continue current treatment regimen. Regular aerobic exercise. Psychological condition will be reassessed at the next regular appointment. Lorazepam 0.5 mg q6h prn Assessment & Plan (08/06/2018 6:37 PM CDT): Stable. Cont. Current meds. Assessment & Plan (03/14/2018 12:52 PM ELIGIBILITY CONSULTANT): Stable. Cont. Current meds. Lorazepam 0.5 mg q6 h prn Assessment & Plan (12/06/2017 1:00 PM CDT): At baseline, continue lorazepam 0.5 mg q6h prn Assessment & Plan (06/07/2017 1:13 PM ELIGIBILITY CONSULTANT): Stable. Refill given. Resolved Problems Problem Noted Date Diagnosed Date Resolved Date Pure hypercholesterolemia 03/30/2021 Elevated glucose 09/28/2020 10/13/2020 Encounters Date Type Department Care Team Description 03/30/2024 Telephone [facility] at [address] [phone] Carmelita Olivera MD 03/27/2024 6:30 PM ELIGIBILITY CONSULTANT Office Visit [facility] at [address] [place] [address] Jacquelin Quinteros NP Constipation, unspecified constipation type (Primary Dx) 03/26/2024 Telephone [facility] at [address] [place] [phone] Carmelita Olivera MD Hospital Follow Up 03/26/2024 [facility] Accountable Care Organization [address] [place] [address] Renetta Mcginnis MA 01/30/2024 Telephone [facility] at [address] [phone] Carmelita Olivera MD Rollator 01/30/2024 Telephone [facility] at [address] [place] [phone] Carmelita Olivera MD Persons with Disabilities Certification for Parking Placard 01/23/2024 1:30 PM CDT Office Visit [facility] [address] [facility] [address] [place] [address] Kate Diaz NP 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); 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) 01/20/2024 Orders Only [facility] at [address] [phone] Carmelita Olivera MD 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) (Primary Dx); 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) 01/02/2024 7:30 PM CDT Office Visit [facility] at [address] [phone] Kristen Vilchis NP Abscess of skin of neck (Primary Dx) from Last 3 Months Immunizations Name Administration Dates Next Due Influenza, Quadrivalent, Hig h Dose, Preservative Free, Intrr 03/05/2023,04/02/2022,01/09/2021,03/24 Influenza, Trivalent, High D ose, Split, Preservative Free, Intramuscular 03/18/2019,03/14/2018 Influenza, Unspecified 03/08/2017,01/14/2016 Pfizer SARS-CoV-2 Monovalent Vaccination (12+ Yrs) PURPLE 09/24/2020,09/03/2020 Pneumococcal Conjugate PCV 13 03/14/2018 Pneumococcal Polysaccharide PPV23 02/06/2011 Tdap 01/14/2016 Tetanus Toxoid, Unspecified 02/06/2011 Surgical History Surgery Date Site/Laterality Comments CATARACT EXTRACTION 09/07/2021 Bilateral 09/22/2021 FL FLUORO GUIDED LUMBAR PUNCTURE 01/17/2022 Right Family History Medical History Relation Name Comments Breast cancer Sister 1 Breast cancer Sister 2 Colon cancer Sister 3 Relation Name Status Comments Sister 1 Sister 2 Sister 3 Alive Social History Tobacco Use Types Packs/Day Years Used Date Smoking Tobacco: Never Smokeless Tobacco: Never Tobacco Cessation:Counseling Given: Not Answered Alcohol Use Standard Drinks/Week Comments No 0 (1 standard drink = 0.6 oz pur e alcohol) [facility] Utilities Answer Date Recorded In the past 12 months has e electric, gas, oil, or water company [...] often do you attend chur ch or latter-day services? Never 12/17/2023 Do you belong to any clubs o r organizations such as worship groups, unions, fraternal or athletic groups, or [...] any time in the past 12 m [facility], were you homeless or living in a care home (including now)? No 12/17/2023 Personal Safety Answer Date Recorded Have you ever been in or are you currently in a harmful physical or emotional relationship or is someone making you feel afraid or unsafe? Denies 11/20/2023 Comments No Sex and Gender Information Value Date Recorded Sex Assigned at Not on file Legal Sex Female 8:45 PM ELIGIBILITY CONSULTANT Gender Identity Female 04/25/2021 2:46 PM ELIGIBILITY CONSULTANT Sexual Orientation Straight 04/25/2021 2: 46 PM ELIGIBILITY CONSULTANT Obstetrics History Last Filed Vital Signs Vital Sign Reading Time Taken Comments Blood Pressure 134/78 03/27/2024 6:33 PM ELIGIBILITY CONSULTANT Pulse 67 03/27/2024 6:33 PM ELIGIBILITY CONSULTANT Temperature 36.6 ??C (97.8 ??F) 03/27/2024 6:33 PM CS T Respiratory Rate 15 03/27/2024 6:33 PM ELIGIBILITY CONSULTANT Oxygen Saturation 99% 03/27/2024 6:33 PM ELIGIBILITY CONSULTANT Inhaled Oxygen Concentration - - Weight 58.1 kg (128 lb) 03/27/2024 6:33 PM ELIGIBILITY CONSULTANT Height 147.3 cm (4' 10 ) 03/27/2024 6:33 PM ELIGIBILITY CONSULTANT Body Mass Index 26.75 03/27/2024 6:33 PM ELIGIBILITY CONSULTANT Plan of Treatment Health Maintenance Due Date Last Done Comments Hepatitis B Screening 09/09/1958 Zoster Vaccine (1 of 2) 09/09/1991 Covid-19 Vaccine ( season) 2023 04/19/2022, 04/17/2021, 09/24/2020, Additional history exists Influenza Vaccine (#1) 2023 , 04/02/2022, 01/09/2021, Additional history exists Foot Exam 03/05/2024 03/05/2023, 01/09/2021 Hemoglobin A1C 03/05/2024 09/03/2023, 07/2022, 04/02/2022, Additional history exists Well Visit 65+ 03/05/2024 03/05/2023, 03/15, 03/30/2021, Additional history exists Albumin Creatinine Ratio, Urine 03/18/2024 03/18/2023, 09/04/2021, 10/13/2020 Lipid Panel 03/18/2024 03/18/2023, 03/15, 09/26/2020, Additional history exists eGFR 11/19/2024 11/20/2023, 0710/2023, 06/13/2023, Additional history exists Depression Screening 11/24/2024 11/25/2023, 10/23/2023, 09/03/2023, Additional history exists Fall Risk Assessment 11/24/2024 11/25/2023, 10/23/2023, 09/03/2023, Additional history exists Dilated Eye Exam 05/21/2025 05/21/2023 DTaP/Tdap/Td Vaccine (2 - Td or Tdap) 01/13/2026 01/14/2016 Osteoporosis Screening-Bone Density Scan 03/04/2045 Postponed from 1941 (Patient declined, but will receive in the future) Pneumococcal vaccine 65+ Completed 03/14/2018, 01/14 Procedures Procedure Name Priority Date/Time Associated Diagnosis Comments NH INCISION & DRAINAGE ABSCESS SIMPLE/SINGLE Routine 01/02/2024 7:30 PM CDT Abscess of skin of neck EGFR STAT 11/20/2023 1:47 PM CDT HEMOGLOBIN A1C Routine 09/03/2023 9:42 AM CDT Type 2 diabetes mellitus with hyperglycemia, without long-term current use of insulin (CMS/HCC) (HCC) DIABETES EYE EXAM Routine 05/21/2023 LIPID PANEL Routine 03/18/2023 1:58 PM ELIGIBILITY CONSULTANT Type 2 diabetes mellitus with hyperglycemia, without long-term current use of insulin (CMS/HCC) (HCC) Hypertension associated with diabetes (HCC) ALBUMIN CREATININE RATIO, URINE Routine 03/18/2023 1:58 PM ELIGIBILITY CONSULTANT Type 2 diabetes mellitus with hyperglycemia, without long-term current use of insulin (CMS/HCC) (HCC) DIABETES FOOT EXAM Routine 03/05/2023 from Last 3 Months or Most Recently Relevant to Health Maintenance Results * NH INCISION & DRAINAGE ABSCESS SIMPLE/SINGLE (01/02/2024 7:30 [...] with no immediate complications us Kristen Vilchis GLASS INSTALLER IN CLINIC/BEDSIDE ORD ERABLES Final Result * [...] MD LAB BLOOD ORDERABLES Final Res ult [facility] ([place]) [address] [facility] Department [place] [address] * (ABNORMAL) Hemoglobin A1c (09/03/2023 9:42 AM CDT) Hgb A1C 6.7(H) 4.0 - 5.6 % Estimated Average Glucose 146 mg/dL [facility] MARCELINO ([place]) Comment: The ADA recommends reporting an estimated Average Glucose (eAG) with all Hemoglobin A1c results using the equation derived from a study of 507 normal and diabetic adults. ??Minority populations were underrepresented and children were not included. ?? (Diabetes Care 31:5425-2869, 2007). ??The eAG is not equivalent to a fasting glucose. Blood 09/03/2023 9:42 AM CDT 09/03/2023 10:23 AM CDT Carmelita Olivera MD LAB BLOOD ORDERABLES Final Result JOSE MARCELINO ([place]) 1 [facility] Department [place] [address] * DIABETES EYE EXAM (05/21/2023) SCRIBED DIABETIC DILATED EYE EXAM Normal Historical Provider HEALTH MAINTENANCE Final Result * Albumin Creatinine Ratio, Urine (03/18/2023 1:58 PM ELIGIBILITY CONSULTANT) Albumin Ur 47.4 mg/L [facility] ([place]) Comment: Interpretive Data No reference range established. Current interpretive data was last revised 2018. Testing performed by: [address] [address] Creatinine Ur 383.9 mg/dL JOSE MARCELINO ([place]) Comment: Interpretive Data No reference range established. Current interpretive data was last revised 2018. Testing performed by: [address] [address] Albumin Creatinine Ratio, Ur 12 1 - 29 mg/g [facility] M[facility]ELINO ([place]) Comment:Testing performed by : [address] [address] Urine 03/18/2023 1:58 PM ELIGIBILITY CONSULTANT 03/19/2023 9:36 AM ELIGIBILITY CONSULTANT us Jocelynn Cintron Coy DO LAB URINE ORDERABLES Final Result [facility] ([place]) 1 [facility] Department [place] [address] * Lipid panel (03/18/2023 1:58 PM ELIGIBILITY CONSULTANT) Cholesterol 167 30 - 199 mg/dL JOSE [...] on 2017. HDL 74 >=40 mg/dL JOSE Clarke ([place]) Comment: Interpretive Data Ages < or [...] on 2017. Chol/HDL ratio 2 [facility] ([place]) Blood 03/18/2023 1:58 PM ELIGIBILITY CONSULTANT 03/18/2023 3:53 PM ELIGIBILITY CONSULTANT us Jocelynn Coy DO LAB BLOOD ORDERABLES Final Result JOSE CHARI ([place]) [address] [facility] Department [place] [address] * DIABETES FOOT EXAM (03/05/2023) SCRIBED DIABETIC FOOT EXAM Normal us Historical Provider MD HEALTH MAINTENANCE Final Result from Last 3 Months or Most Recently Relevant to Health Maintenance Insurance [facility] Member Subscriber Plan / Payer (Ef fective 2017-Present) Name:Annita Bose Relation to Subscriber:Self Name:Annita Bose Payer ID:[id number] (NAIC) Type:MEDICARE RISK OTHER Address: [address] [place], [place] [id number] [facility] Member Subscriber Plan / Payer ( fective 2017-Present) Name:Annita Bose Relation to Subscriber:Self Name:Annita Bose Payer ID:[id number] (NAIC) Type:MEDICARE RISK OTHER Address: [place] [id number] Care Teams Record Label Internship Relationship Specialty Start Date End Date Carmelita Olivera MD [address] [place] [address] PCP - General Family Medicine 09/03/23 Brian Madera MD [address] [place] [address] Consulting Physician Neurology 04/02/22
--- OUTSIDE RECORDS SUMMARY | 2024-03-31 14:18 | XMS_ITS | Clinical Summary ---
Author Organization [facility] Address [address] [place] [address] Phone Care Team Providers Care Bingo Cashier Name Role Phone Carmelita Olivera MD Primary Care Provide r Allergies No known active allergies Medications amLODIPine (NORVASC) 10 MG Tablet Take 10 mg by mouth nightly. 3 Active atorvastatin (LIPITOR) 20 MG Tablet Take 20 mg by mouth nightly. 3 Active lisinopril (PRINIVIL, ZESTRIL) 2.5 MG Tablet Take 2.5 mg by mouth daily. 3 Active LORazepam (ATIVAN) 0.5 MG Tablet TAKE 1 TABLET BY MOUTH NEEDED FOR ANXIETY. 3 Active memantine (NAMENDA) 10 MG Tablet Take 10 mg by mouth 2 times daily. 3 Active metFORMIN (GLUCOPHAGE-XR) 500 MG TABLET SR 24 HR TAKE 1 TABLET BY MOUTH EVERY DAY WITH BREAKFAST 3 Active [place]-3 1000 MG Capsule Take by mouth. Activ e Active Problems No known active problems Encounters Date Type Department Care Team Description 03/25/2024 6:31 PM SACK SEWER MACHINE - 03/25/2024 9:24 PM SACK SEWER MACHINE Emergency [facility] [address] [place] [address] Prabhjot Javier MD Visual hallucinations Discharge Disposition: Discharged to home or Selfcare 03/25/2024 Travel from Last 3 Months Social History Tobacco Use Types Packs/Day Years Used Date Smoking Tobacco: Never Smokeless Tobacco: Never Tobacco Cessation:Counseling Given: Not Answered Comments No Sex and Gender Information Value Date Recorded Sex Assigned at Not on file Legal Sex Female 9:28 PM CDT Gender Identity Not on file Sexual Orientation Not on file Last Filed Vital Signs Vital Sign Reading Time Taken Comments Blood Pressure 132/55 03/25/2024 9:15 PM SACK SEWER MACHINE Pulse 64 03/25/2024 9:15 PM SACK SEWER MACHINE Temperature 36.6 ??C (97.9 ??F) 03/25/2024 6:25 PM CS T Respiratory Rate 16 03/25/2024 9:15 PM SACK SEWER MACHINE Oxygen Saturation 97% 03/25/2024 9:15 PM SACK SEWER MACHINE Inhaled Oxygen Concentration - - Weight 58.1 kg (128 lb) 03/25/2024 6:25 PM SACK SEWER MACHINE Height 152.4 cm (5') 03/25/2024 6:25 PM SACK SEWER MACHINE Body Mass Index 25 03/25/2024 6:25 PM SACK SEWER MACHINE Plan of Treatment Health Maintenance Due Date Last Done Comments DEXA Bone Density 1940 Hepatitis C Virus (HCV) Screening 1940 Zoster Immunization (1 of 2) 09/09/1991 Respiratory Syncytial Virus (RSV) Immunization (Adult) (1 - 1-dose 75+ series) 2016 Influenza Immunization (#1) 12/15/202302/14, 04/02/2022, 01/09/2021, Additional history exists SARS-COV-2 Immunization ( season) 2023 09/24/2020, 09/03/2020 DTaP/Tdap/Td Immunization Discontinued 01/14/2016 TdaP Immunization Completed 01/14/2016 Pneumococcal Immunization (65+ years) Completed 03/14/2018, 02/06/2011 Hepatitis B Immunization Aged Out No longer eligible based on patient's age to complete this topic Meningococcal Immunization (ACWY) Aged Out No longer eligible based on patient's age to complete this topic Rotavirus Immunization Aged Out No lo nger eligible based on patient's age to complete this topic Procedures Procedure Name Priority Date/Time Associated Diagnosis Comments CBC WITH AUTO DIFFERENTIAL STAT 03/25/2024 7:22 PM SACK SEWER MACHINE THYROID STIMULATING HORMONE (TSH) STAT 03/25/2024 7:22 PM SACK SEWER MACHINE CMP (COMPREHENSIVE METABOLIC PANEL) STAT 03/25/2024 7:22 PM SACK SEWER MACHINE COMPLETE BLOOD COUNT (CBC) WITH DIFF STAT 03/25/2024 7:22 PM SACK SEWER MACHINE URINALYSIS REFLEX IF INDICATED BY ABNORMAL RESULTS STAT 03/25/2024 6:39 PM SACK SEWER MACHINE from Last 3 Months Results * CBC with Auto Differential (03/25/2024 7:22 PM SACK SEWER MACHINE) [facility] WBC 6.01 4.00 - 12.00 10(3)/mcL 03/25/2024 7:32 PM SACK SEWER MACHINE [facility] RBC 4.56 3.80 - 5.30 10(6)/mcL 03/25/2024 7:32 PM SACK SEWER MACHINE [facility] HEMOGLOBIN (HGB) 12.3 12.0 - 15.8 g/dL 03/25/2024 7:32 PM SACK SEWER MACHINE [facility] HEMATOCRIT (HCT) 38.8 36.0 - 47.0 % 03/25/2024 7:32 PM SACK SEWER MACHINE [facility] MCV 85.1 82.0 - 96.0 fL 03/25/2024 7:32 PM SACK SEWER MACHINE [facility] MCH 27.0 26.0 - 34.0 pg 03/25/2024 7:32 PM SACK SEWER MACHINE [facility] MCHC 31.7 31.0 - 36.0 g/dL 03/25/2024 7:32 PM SACK SEWER MACHINE [facility] PLATELET COUNT 223 140 - 440 10(3)/mcL 03/25/2024 7:32 PM SACK SEWER MACHINE [facility] RDW 13.2 11.8 - 15.5 % 03/25/2024 7:32 PM SACK SEWER MACHINE [facility] MPV 10.5 9.7 - 12.4 fL 03/25/2024 7:32 PM SACK SEWER MACHINE [facility] NEUTROPHILS 54.5 47.0 - 73.0 % 03/25/2024 7:32 PM SACK SEWER MACHINE [facility] LYMPHOCYTES 35.6 18.0 - 42.0 % 03/25/2024 7:32 PM SACK SEWER MACHINE [facility] MONOCYTES 7.8 4.0 - 12.0 % 03/25/2024 7:32 PM SACK SEWER MACHINE [facility] EOSINOPHILS 1.3 0.0 - 5.0 % 03/25/2024 7:32 PM SACK SEWER MACHINE [facility] BASOPHILS 0.8 0.0 - 1.0 % 03/25/2024 7:32 PM SACK SEWER MACHINE [facility] ABSOLUTE NEUTROPHILS 3.27 1.60 - 7.70 10(3)/[facility] 03/25/2024 7:32 PM SACK SEWER MACHINE [facility] ABSOLUTE LYMPHOCYTES 2.14 1.30 - 3.20 10(3)/[facility] 03/25/2024 7:32 PM SACK SEWER MACHINE [facility] ABSOLUTE MONOCYTES 0.47 0.20 - 1.00 10(3)/[facility] 03/25/2024 7:32 PM SACK SEWER MACHINE [facility] ABSOLUTE EOSINOPHIL 0.08 0.00 - 0.40 10(3)/[facility] 03/25/2024 7:32 PM SACK SEWER MACHINE [facility] ABSOLUTE BASOPHILS 0.05 0.00 - 0.10 10(3)/[facility] 03/25/2024 7:32 PM SACK SEWER MACHINE [facility] NRBC PER 100 WBC 0 03/25/20 7:32 PM [facility] Blood Venipuncture / Unknown 03/25/2024 7:22 PM SACK SEWER MACHINE 03/25/2024 7:30 PM SACK SEWER MACHINE us Prabhjot Javier MD HEMATOLOGY ORDERABLES Fin al Result [facility] [address] [place] [address] * Thyroid Stimulating Hormone (TSH) (03/25/2024 7:22 PM SACK SEWER MACHINE) TSH 0.710 0.300 - 5.000 mIU/L 03/25/2024 8:12 PM SACK SEWER MACHINE [facility] Blood Venipuncture / Unknown 03/25/2024 7:22 PM SACK SEWER MACHINE 03/25/2024 7:30 PM SACK SEWER MACHINE us Prabhjot Javier MD CHEMISTRY ORDERABLES Marisel l Result [facility] [address] [place] [address] * (ABNORMAL) CMP (Comprehensive Metabolic Panel) (03/25/2024 7:22 PM SACK SEWER MACHINE) SODIUM 144 136 - 145 mmol/L 03/25/2024 7:54 PM [facility] POTASSIUM 3.8 3.5 - 5.1 mmol/L 03/25/2024 7:54 PM [facility] CHLORIDE 106 98 - 107 mmol/L 03/25/2024 7:54 PM [facility] CO2, VENOUS 29 22 - 30 mmol/L 03/25/2024 7:54 PM [facility] ANION GAP 12.8 <18.0 mmol/L 03/25/2024 7:54 PM [facility] GLUCOSE 156(H) 70 - 99 mg/dL 03/25/2024 7:54 PM [facility] BUN 14 10 - 20 mg/dL 03/25/2024 7:54 PM [facility] CREATININE, BLOOD 0.91 0.60 - 1.00 mg/dL 03/25/2024 7:54 PM [facility] BUN/CREATININE RATIO 15 12 - 20 ratio 03/25/2024 7:54 PM [facility] TOTAL PROTEIN 7.2 6.3 - 8.2 g/dL 03/25/2024 7:54 PM [facility] ALBUMIN 4.0 3.5 - 5.0 g/dL 03/25/2024 7:54 PM [facility] A/G RATIO 1.3 1.0 - 2.2 03/25/2024 7:54 PM SACK SEWER MACHINE [facility] CALCIUM 9.9 8.7 - 10.5 mg/dL 03/25/2024 7:54 PM SACK SEWER MACHINE [facility] T BILI 0.4 0.2 - 1.2 mg/dL 03/25/2024 7:54 PM SACK SEWER MACHINE [facility] SGOT (AST) 17 5 - 34 U/L 03/25/2024 7:54 PM SACK SEWER MACHINE [facility] SGPT (ALT) 13 0 - 55 U/L 03/25/2024 7:54 PM SACK SEWER MACHINE [facility] ALKALINE PHOSPHATASE 76 40 - 150 U/L 03/25/2024 7:54 PM SACK SEWER MACHINE [facility] GFR, ESTIMATED >60 >=60 03/25/2024 7:54 PM SACK SEWER MACHINE [facility] Comment: Creatinine Clearance is the preferred criteria for selecting drug dose adjustments in renally impaired patients. ??The GFR is provided as additional pertinent clinical information. GFR is reported in mL/min/1.73 sq m. Calculation based on the Chronic Kidney Disease Epidemiology Collaboration (CKD- EPI) equation refit without adjustment for race. GFR, EST. >60 >=60 024 7:54 PM SACK SEWER MACHINE [facility] GFR, EST. NONAFRICAN 59(L) >=60 03/25/2024 7:54 PM SACK SEWER MACHINE [facility] Blood Venipuncture / Unknown 03/25/2024 7:22 PM SACK SEWER MACHINE 03/25/2024 7:30 PM SACK SEWER MACHINE us Prabhjot Javier MD CHEMISTRY ORDERABLES Marisel valencia Result [facility] [address] [place] [address] * (ABNORMAL) URINALYSIS REFLEX IF INDICATED BY ABNORMAL RESULTS (03/25/2024 6:39 PM SACK SEWER MACHINE) SPECIFIC GRAVITY 1.025 1.003 - 1.030 03/25/2024 7:42 PM [facility] URINE PH 6.0 5.0 - 9.0 03/25/2024 7:42 PM [facility] WBC ESTERASE 25 /ul(A) Negative 03/25/2024 7:42 PM [facility] NITRITE Negative Negative 03/25/2024 7:42 PM [facility] PROTEIN, RANDOM URINE 30 mg/dL(A) Negative 03/25/2024 7:42 PM [facility] URINE GLUCOSE, QUAL 50 mg/dL(A) Negative 03/25/2024 7:42 PM [facility] URINE KETONES Negative Negative 03/25/2024 7:42 PM [facility] UROBILINOGEN 1 mg/dL(A) Normal mg/dL 03/25/2024 7:42 PM [facility] URINE BLOOD 10 /uL(A) Negative mayela/ul 03/25/2024 7:42 PM [facility] URINALYSIS COLOR Yellow 03/25/20 24 7:42 PM [facility] URINALYSIS CLARITY Clear 03/25/2024 7:42 PM [facility] WBC (Urine) 0-5 Negative, 0-5 /hpf 03/25/2024 7:42 PM [facility] URINE RBC'S 0-2 Negative, 0-2 /hpf 03/25/2024 7:42 PM [facility] EPITHELIAL CELLS Large amount squamous /lpf 03/25/2024 7:42 PM [facility] BACTERIA, URINE Few(A) Negative /hpf 03/25/2024 7:42 PM [facility] Urine URINE SPECIMEN COLLECTION, CLEAN CATCH / Unknown Non-Phlebotomy Collection / Unknown 03/25/2024 6:39 PM SACK SEWER MACHINE 03/25/2024 6:53 PM SACK SEWER MACHINE Prabhjot Javier MD URINE ORDERABLES Final Re sult [facility] [address] [place] [address] from Last 3 Months Insurance MEDICARE C [facility] Care Teams Bingo Cashier Relationship Specialty Start Date End Date Carmelita Olivera MD [address] [place] [address] PCP - General Family Medicine 03/25/24
--- OUTSIDE RECORDS SUMMARY | 2024-03-31 14:18 | XMS_ITS | Encounter Summary ---
Author Organization [facility] Address [address] [place] [address] Phone Care Team Providers Care Bioinformatics Software Engineer Name Role Phone Carmelita Olivera MD Primary Care Provide r Reason for Visit * Reason Comments Altered Mental Status Encounter Details Date Type Department Care Team (Late st Contact Info) Description 03/25/2024 6:31 PM CRANBERRY GROWER - 03/25/2024 9:24 PM [facility]Y [facility]OWER Emergency [facility] Emergency [address] [place] [address] Prabhjot Javier MD [address] [place] [address] Visual hallucinations Discharge Disposition: Discharged to home [...] Comments Blood Pressure 132/55 03/25/2024 9:15 PM [facility]OWER Pulse 64 03/25/2024 9:15 PM [facility]AN[facility] GROWER Temperature 36.6 ??C (97.9 ??F) 03/25/2024 6:25 PM CS T Respiratory Rate 16 03/25/2024 9:15 PM [facility]AN[facility] GROWER Oxygen Saturation 97% 03/25/2024 9:15 PM [facility] GR[facility] Inhaled Oxygen Concentration - - Weight 58.1 kg (128 lb) 03/25/2024 6:25 PM [facility] Height 152.4 cm (5') 03/25/2024 6:25 PM [facility] GROWER Body Mass Index 25 03/25/2024 6:25 PM [facility]AN[facility] GROWER documented in this encounter Discharge Instructions * Discharge Instructions* Prabhjot Javier MD - 03/25/2024 9:15 PM [facility] Continue with your current medications. Follow up with your primary care provider for recheck. BERRY GROWER documented in this encounter Medications at Time of Discharge amLODIPine (NORVASC) 10 MG Tablet Take 10 mg by mouth nightly. 04/03/2023 atorvastatin (LIPITOR) 20 MG Tablet Take 20 mg by mouth nightly. 04/03/2023 lisinopril (PRINIVIL, ZESTRIL) 2.5 MG Tablet Take 2.5 mg by mouth daily. 03/09/2023 LORazepam (ATIVAN) 0.5 MG Tablet TAKE 1 TABLET BY MOUTH NEEDED FOR ANXIETY. 03/05/2023 memantine (NAMENDA) 10 MG Tablet Take 10 mg by mouth 2 times daily. 02/09/2023 metFORMIN (GLUCOPHAGE-XR) 500 MG TABLET SR 24 HR TAKE 1 TABLET BY MOUTH EVERY DAY WITH BREAKFAST 04/03/2023 [place]-3 1000 MG Capsule Take by mouth. documented as of this encounter ED Notes * Summer Escobar RN - 03/25/2024 9:19 PM CST Patient discharged. Discharge instructions and patient educational material reviewed with patient; questions and concerns addressed; patient verbalizes understanding, using teach back. Patient was given 0 prescriptions. Patient was informed no drinking alcohol, driving or operating heavy machinery while taking narcotics or muscle relaxants. Patient discharged per ambulatory mode with self as responsible green party. SL D/C'ed with Trey cath intact. BERRY GROWER * Maggie Pagan RN - 03/25/2024 7:20 PM CST Pt medicated per provider orders. Pt educated on intended effects and side effects of medication and verbalized understanding. Pt able to provide teach- back of education. BERRY GROWER * Yanely Ugalde RN - 03/25/2024 7:17 PM CST Patient presents to ED room 3. No change in patients condition since being seen in triage. See triage note. Assessment as noted. Call light within reach. Will continue to monitor. BERRY GROWER * Prabhjot Javier MD - 03/25/2024 6:59 PM CST Chief Complaint Patient presents with Altered Mental Status Patient is an 83-year-old female with history of dementia along with hypertension and diabetes who he was brought to the emergency room by her caregiver and daughter for increased confusion. She doeshave visual hallucinations but they seemed to be a lot worse lately. She was not have any specific complaints. She did state she was some burning or stinging with urination but that went away. The daughter feels she was urinating more frequently lately. These symptoms has been going for the past 2-3 days. She has not had any signs of infection otherwise such as nausea vomiting or diarrhea. She has not fallen or had any trauma. No current facility-administered medications for this encounter. Current Outpatient Medications Medication Sig Dispense Refill amLODIPine (NORVASC) 10 MG Tablet Take 10 mg by mouth nightly. atorvastatin (LIPITOR) 20 MG Tablet Take 20 mg by mouth nightly. lisinopril (PRINIVIL, ZESTRIL) 2.5 MG Tablet Take 2.5 mg by mouth daily. LORazepam (ATIVAN) 0.5 MG Tablet TAKE 1 TABLET BY MOUTH NEEDED FOR ANXIETY. memantine (NAMENDA) 10 MG Tablet Take 10 mg by mouth 2 times daily. metFORMIN (GLUCOPHAGE-XR) 500 MG TABLET SR 24 HR TAKE 1 TABLET BY MOUTH EVERY DAY WITH BREAKFAST [place]-3 1000 MG Capsule Take by mouth. No Known Allergies Past Medical History Positives Diagnosis Date Arthritis Dementia (HCC) Diabetes mellitus (HCC) Hypertension No past surgical history on file. Social History Socioeconomic History Marital status: Spouse name: Not on file Number of children: Not on file Years of education: Not on file Highest education level: Not on file Occupational History Not on file Tobacco Use Smoking status: Never Smokeless tobacco: Never Substance and Sexual Activity Alcohol use: Not on file Drug use: Not on file Sexual activity: Not on file Other Topics Concern Not on file Social History Narrative Not on file Social Drivers of Health Financial Resource Needs: Low Risk (12/17/2023) Received from [facility] Overall Financial Resource Strain (CARDIA) Difficulty of Paying Living Expenses: Not hard at all Food Insecurity Needs: No Food Insecurity (12/17/2023) Received from [facility] Hunger Vital Sign Worried About Running Out of Food in the Last Year: Never true Ran Out of Food in the Last Year: Never true Transportation Needs: No Transportation Needs (12/17/2023) Received from [facility] PRAPARE - Transportation Lack of Transportation (Medical): No Lack of Transportation (Non-Medical): No Physical Activity: Not on file Stress: Not on file Social Integration: Socially Isolated (12/17/2023) Received from [facility] Social Connection and Isolation Panel [NHANES] Frequency of Communication with Friends and Family: Not on file Frequency of Social Gatherings with Friends and Family: More than three times a week Attends Zoroastrianism Services: Never Active Member of Clubs or Organizations: No Attends Club or Organization Meetings: Never Marital Status: Personal Safety: Not on file Housing Stability: Low Risk (12/17/2023) Received from [facility] Housing Stability Vital Sign Unable to Pay for Housing in the Last Year: No Number of Times Moved in the Last Year: 1 Homeless in the Last Year: No BP 130/50 Pulse 71 Temp 97.9 ??F (36.6 ??C) (Tympanic) Resp 19 Ht 5' (1.524 m) Wt 128 lb (58.1 kg) SpO2 99% BMI 25.00 kg/m?? Review of Systems Constitutional: Negative for activity change, appetite change, chills and fever. HENT: Negative for congestion, ear pain, rhinorrhea, sore throat and trouble swallowing. Eyes: Negative for pain and visual disturbance. Respiratory: Negative for cough, shortness of breath and wheezing. Cardiovascular: Negative for chest pain. Gastrointestinal: Negative for abdominal pain, diarrhea, nausea and vomiting. Genitourinary: Positive for dysuria. Negative for difficulty urinating. Musculoskeletal: Negative for arthralgias and back pain. Skin: Negative for pallor. Neurological: Negative for headaches. Hematological: Negative for adenopathy. Psychiatric/Behavioral: Positive for confusion and hallucinations (visual). Negative for agitation and behavioral problems. All other systems reviewed and are negative. Physical Exam Vitals and nursing note reviewed. Constitutional: General: She is not in acute distress. Appearance: She is well-developed. She is not diaphoretic. HENT: Head: Normocephalic and atraumatic. Eyes: Conjunctiva/sclera: Conjunctivae normal. Pupils: Pupils are equal, round, and reactive to light. Cardiovascular: Rate and Rhythm: Normal rate and regular rhythm. Heart sounds: Normal heart sounds. No murmur heard. No friction rub. No gallop. Pulmonary: Effort: Pulmonary effort is normal. No respiratory distress. Breath sounds: Normal breath sounds. No wheezing or rales. Abdominal: General: Bowel sounds are normal. There is no distension. Palpations: Abdomen is soft. Tenderness: There is no abdominal tenderness. There is no guarding or rebound. Musculoskeletal: General: No tenderness or deformity. Normal range of motion. Cervical back: Normal range of motion and neck supple. Lymphadenopathy: Cervical: No cervical adenopathy. Skin: General: Skin is warm and dry. Coloration: Skin is not pale. Findings: No erythema or rash. Neurological: Mental Status: She is alert and oriented to person, place, and time. Psychiatric: Behavior: Behavior normal. Thought Content: Thought content normal. Judgment: Judgment normal. Procedures Recent Results (from the past 24 hours) URINALYSIS REFLEX IF INDICATED BY ABNORMAL RESULTS Collection Time: 03/25/24 6:39 PM Result Value Ref Range SPECIFIC GRAVITY 1.025 1.003 - 1.030 URINE PH 6.0 5.0 - 9.0 WBC ESTERASE 25 /ul (A) Negative NITRITE Negative Negative PROTEIN, RANDOM URINE 30 mg/dL (A) Negative URINE GLUCOSE, QUAL 50 mg/dL (A) Negative URINE KETONES Negative Negative UROBILINOGEN 1 mg/dL (A) Normal mg/dL URINE BLOOD 10 /uL (A) Negative mayela/ul URINALYSIS COLOR Yellow URINALYSIS CLARITY Clear WBC (Urine) 0-5 Negative, 0-5 /hpf URINE RBC'S 0-2 Negative, 0-2 /hpf EPITHELIAL CELLS Large amount squamous /lpf BACTERIA, URINE Few (A) Negative /hpf CMP (Comprehensive Metabolic Panel) Collection Time: 03/25/24 7:22 PM Result Value Ref Range SODIUM 144 136 - 145 mmol/L POTASSIUM 3.8 3.5 - 5.1 mmol/L CHLORIDE 106 98 - 107 mmol/L CO2, VENOUS 29 22 - 30 mmol/L ANION GAP 12.8 <18.0 mmol/L GLUCOSE 156 (H) 70 - 99 mg/dL BUN 14 10 - 20 mg/dL CREATININE, BLOOD 0.91 0.60 - 1.00 mg/dL BUN/CREATININE RATIO 15 12 - 20 ratio TOTAL PROTEIN 7.2 6.3 - 8.2 g/dL ALBUMIN 4.0 3.5 - 5.0 g/dL A/G RATIO 1.3 1.0 - 2.2 CALCIUM 9.9 8.7 - 10.5 mg/dL T BILI 0.4 0.2 - 1.2 mg/dL SGOT (AST) 17 5 - 34 U/L SGPT (ALT) 13 0 - 55 U/L ALKALINE PHOSPHATASE 76 40 - 150 U/L GFR, ESTIMATED >60 >=60 GFR, EST. >60 >=60 GFR, EST. NONAFRICAN 59 (L) >=60 Thyroid Stimulating Hormone (TSH) Collection Time: 03/25/24 7:22 PM Result Value Ref Range TSH 0.710 0.300 - 5.000 mIU/L CBC with Auto Differential Collection Time: 03/25/24 7:22 PM Result Value Ref Range WBC 6.01 4.00 - 12.00 10(3)/mcL RBC 4.56 3.80 - 5.30 10(6)/mcL HEMOGLOBIN (HGB) 12.3 12.0 - 15.8 g/dL HEMATOCRIT (HCT) 38.8 36.0 - 47.0 % MCV 85.1 82.0 - 96.0 fL MCH 27.0 26.0 - 34.0 pg MCHC 31.7 31.0 - 36.0 g/dL PLATELET COUNT 223 140 - 440 10(3)/mcL RDW 13.2 11.8 - 15.5 % MPV 10.5 9.7 - 12.4 fL NEUTROPHILS 54.5 47.0 - 73.0 % LYMPHOCYTES 35.6 18.0 - 42.0 % MONOCYTES 7.8 4.0 - 12.0 % EOSINOPHILS 1.3 0.0 - 5.0 % BASOPHILS 0.8 0.0 - 1.0 % ABSOLUTE NEUTROPHILS 3.27 1.60 - 7.70 10(3)/mcL ABSOLUTE LYMPHOCYTES 2.14 1.30 - 3.20 10(3)/mcL ABSOLUTE MONOCYTES 0.47 0.20 - 1.00 10(3)/mcL ABSOLUTE EOSINOPHIL 0.08 0.00 - 0.40 10(3)/mcL ABSOLUTE BASOPHILS 0.05 0.00 - 0.10 10(3)/mcL NRBC PER 100 WBC 0 Imaging Results None Medical Decision Making Amount and/or Complexity of Data Reviewed Labs: ordered. Decision-making details documented in ED Course. Radiology: ordered. Decision-making details documented in ED Course. Clinical Impression 1. Dementia (HCC) 2. Visual hallucinations Disposition: Discharge Patient was brought to emergency room by her daughter with signs of increasing confusion. Most of the your occurrences are chronic but seem to be somewhat worse. We did lab work that came back with anormal TSH CMP and CBC. Urinalysis was also unremarkable. I went over these results with the patient and her daughter. We did not find any specific underlying cause for her worsening symptoms. Patient was remained stable throughout her ER visit. We will discharge her back home with her daughter. I recommend she follow up with her primary care provider for recheck BERRY GROWER * Olga Doran RN - 03/25/2024 6:54 PM CST ERP at bedside BERRY GROWER * Selin Griffin RN - 03/25/2024 6:26 PM CST Pt arrives to triage with daughter who complains that the past has been more confused the past day.Daughter states that the pt has dementia and does have hallucinations time to time, but she feels the pt seeing more things than normal. Pt denies any complaints at this time and is able to state where she is, situation, and what year it it. Pt denies any urinary complaints as well, but family would like her checked for a UTI. BERRY GROWER documented in this encounter Plan of Treatment Not on file documented as of this encounter Procedures Procedure Name Priority Date/Time Associated Diagnosis Comments CBC WITH AUTO DIFFERENTIAL STAT 03/25/2024 7:22 PM [facility] THYROID STIMULATING HORMONE (TSH) STAT 03/25/2024 7:22 PM [facility] GROWER CMP (COMPREHENSIVE METABOLIC PANEL) STAT 03/25/2024 7:22 PM [facility] GROWER COMPLETE BLOOD COUNT (CBC) WITH DIFF STAT 03/25/2024 7:22 PM [facility] GROWER URINALYSIS REFLEX IF INDICATED BY ABNORMAL RESULTS STAT 03/25/2024 6:39 PM [facility]Y GROWER documented in this encounter Results * CBC with Auto Differential (03/25/2024 7:22 PM [facility]AN[facility]Y GROWER) WBC 6.01 4.00 - 12.00 10(3)/mcL 03/25/2024 7:32 PM [facility] GROWER [facility] RBC 4.56 3.80 - 5.30 10(6)/mcL 03/25/2024 7:32 PM [facility] GROWER [facility] HEMOGLOBIN (HGB) 12.3 12.0 - 15.8 g/dL 03/25/2024 7:32 PM [facility] GROWER [facility] HEMATOCRIT (HCT) 38.8 36.0 - 47.0 % 03/25/2024 7:32 PM [facility] MCV 85.1 82.0 - 96.0 fL 03/25/2024 7:32 PM [facility] MCH 27.0 26.0 - 34.0 pg 03/25/2024 7:32 PM [facility] MCHC 31.7 31.0 - 36.0 g/dL 03/25/2024 7:32 PM [facility] PLATELET COUNT 223 140 - 440 10(3)/[facility] 03/25/2024 7:32 PM [facility] RDW 13.2 11.8 - 15.5 % 03/25/2024 7:32 PM [facility] MPV 10.5 9.7 - 12.4 fL 03/25/2024 7:32 PM [facility] NEUTROPHILS 54.5 47.0 - 73.0 % 03/25/2024 7:32 PM [facility] LYMPHOCYTES 35.6 18.0 - 42.0 % 03/25/2024 7:32 PM [facility] MONOCYTES 7.8 4.0 - 12.0 % 03/25/2024 7:32 PM [facility] EOSINOPHILS 1.3 0.0 - 5.0 % 03/25/2024 7:32 PM [facility] BASOPHILS 0.8 0.0 - 1.0 % 03/25/2024 7:32 PM [facility] ABSOLUTE NEUTROPHILS 3.27 1.60 - 7.70 10(3)/[facility] 03/25/2024 7:32 PM [facility] ABSOLUTE LYMPHOCYTES 2.14 1.30 - 3.20 10(3)/[facility] 03/25/2024 7:32 PM [facility] ABSOLUTE MONOCYTES 0.47 0.20 - 1.00 10(3)/[facility] 03/25/2024 7:32 PM [facility] ABSOLUTE EOSINOPHIL 0.08 0.00 - 0.40 10(3)/[facility] 03/25/2024 7:32 PM [facility] ABSOLUTE BASOPHILS 0.05 0.00 - 0.10 10(3)/[facility] 03/25/2024 7:32 PM [facility] NRBC PER 100 WBC 0 03/25/20 7:32 PM [facility] Blood Venipuncture / Unknown 03/25/2024 7:22 PM [facility] 03/25/2024 7:30 PM [facility] Prabhjot Javier MD HEMATOLOGY ORDERABLES Fin al Result Performing Organization Address City/[facility]/ZIP Co de Phone Number [facility] [address] [place] [address] * Thyroid Stimulating Hormone (TSH) (03/25/2024 7:22 PM [facility]Y GROWER) TSH 0.710 0.300 - 5.000 mIU/L 03/25/2024 8:12 PM [facility] Blood Venipuncture / Unknown 03/25/2024 7:22 PM [facility] GROWER 03/25/2024 7:30 PM [facility] Prabhjot Javier MD CHEMISTRY ORDERABLES Marisel l Result Performing Organization Address [facility] de Phone Number [facility] [address] [place] [address] * (ABNORMAL) CMP (Comprehensive Metabolic Panel) (03/25/2024 7:22 PM CRAN[facility]Y GROWER) Pathologist [facility] SODIUM 144 136 - 145 mmol/L 03/25/2024 7:54 PM [facility] POTASSIUM 3.8 3.5 - 5.1 mmol/L 03/25/2024 7:54 PM [facility] CHLORIDE 106 98 - 107 mmol/L 03/25/2024 7:54 PM [facility] CO2, VENOUS 29 22 - 30 mmol/L 03/25/2024 7:54 PM [facility] GROWER [facility] ANION GAP 12.8 <18.0 mmol/L 03/25/2024 7:54 PM [facility] GROWER [facility] GLUCOSE 156(H) 70 - 99 mg/dL 03/25/2024 7:54 PM [facility] BUN 14 10 - 20 mg/dL 03/25/2024 7:54 PM [facility] CREATININE, BLOOD 0.91 0.60 - 1.00 mg/dL 03/25/2024 7:54 PM [facility] BUN/CREATININE RATIO 15 12 - 20 ratio 03/25/2024 7:54 PM [facility] TOTAL PROTEIN 7.2 6.3 - 8.2 g/dL 03/25/2024 7:54 PM [facility] ALBUMIN 4.0 3.5 - 5.0 g/dL 03/25/2024 7:54 PM [facility] A/G RATIO 1.3 1.0 - 2.2 03/25/2024 7:54 PM [facility] CALCIUM 9.9 8.7 - 10.5 mg/dL 03/25/2024 7:54 PM [facility] T BILI 0.4 0.2 - 1.2 mg/dL 03/25/2024 7:54 PM [facility] SGOT (AST) 17 5 - 34 U/L 03/25/2024 7:54 PM [facility] SGPT (ALT) 13 0 - 55 U/L 03/25/2024 7:54 PM [facility] ALKALINE PHOSPHATASE 76 40 - 150 U/L 03/25/2024 7:54 PM [facility] GFR, ESTIMATED >60 >=60 03/25/2024 7:54 PM [facility] Comment: Creatinine Clearance is the preferred criteria for selecting drug dose adjustments in renally impaired patients. ??The GFR is provided as additional pertinent clinical information. GFR is reported in mL/min/1.73 sq m. Calculation based on the Chronic Kidney Disease Epidemiology Collaboration (CKD- EPI) equation refit without adjustment for race. GFR, EST. >60 >=60 024 7:54 PM [facility] GFR, EST. NONAFRICAN 59(L) >=60 03/25/2024 7:54 PM [facility] Blood Venipuncture / Unknown 03/25/2024 7:22 PM [facility] 03/25/2024 7:30 PM [facility] GROWER us Prabhjot Javier MD CHEMISTRY ORDERABLES Marisel l Result [facility] [address] [place] [address] * (ABNORMAL) URINALYSIS REFLEX IF INDICATED BY ABNORMAL RESULTS (03/25/2024 6:39 PM [facility] GROWER) SPECIFIC GRAVITY 1.025 1.003 - 1.030 03/25/2024 7:42 PM [facility] GR[facility] URINE PH 6.0 5.0 - 9.0 03/25/2024 7:42 PM [facility] WBC ESTERASE 25 /ul(A) Negative 03/25/2024 7:42 PM [facility] NITRITE Negative Negative 03/25/2024 7:42 PM [facility] PROTEIN, RANDOM URINE 30 mg/dL(A) Negative 03/25/2024 7:42 PM [facility] GR[facility] URINE GLUCOSE, QUAL 50 mg/dL(A) Negative 03/25/2024 7:42 PM [facility] GR[facility] URINE KETONES Negative Negative 03/25/2024 7:42 PM [facility] UROBILINOGEN 1 mg/dL(A) Normal mg/dL 03/25/2024 7:42 PM [facility] URINE BLOOD 10 /uL(A) Negative mayela/ul 03/25/2024 7:42 PM [facility]ERR[facility] GROWER [facility] URINALYSIS COLOR Yellow 03/25/20 24 7:42 PM [facility] URINALYSIS CLARITY Clear 03/25/2024 7:42 PM [facility] WBC (Urine) 0-5 Negative, 0-5 /hpf 03/25/2024 7:42 PM [facility] URINE RBC'S 0-2 Negative, 0-2 /hpf 03/25/2024 7:42 PM [facility] EPITHELIAL CELLS Large amount squamous /lpf 03/25/2024 7:42 PM [facility] GR[facility] BACTERIA, URINE Few(A) Negative /hpf 03/25/2024 7:42 PM [facility] GR[facility] Urine URINE SPECIMEN COLLECTION, CLEAN CATCH / Unknown Non-Phlebotomy Collection / Unknown 03/25/2024 6:39 PM [facility] GROWER 03/25/2024 6:53 PM [facility] GR[facility] us Prabhjot Javier MD URINE ORDERABLES Final Re sult [facility] [address] [place] [address] documented in this encounter Visit Diagnoses Diagnosis Dementia (HCC)- Primary Dementia, unspecified, without behavioral disturbance Visual hallucinations Psychophysical visual disturbances documented in this encounter Administered Medications Inactive Administered Medications - up to 3 most recent administrations Medication Order MAR Action Action Date Dose Rate Site 0.9 % sodium chloride solution at 500 mL/hr, Intravenous, ONCE, 1 dose, On Sat03/25/24 at 1930 New Bag 03/25/2024 7:19 PM [facility]OWER 1,000 mL 500 mL/hr documented in this encounter Active and Recently Administered Medications Times are shown in [facility]ANBERRY GROWER. Scheduled Medication Order 03/23/2024 03/24/2024 03/25/2024 0.9 % sodium chloride solution (COMPLETED) at 500 mL/hr, Intravenous, ONCE, 1 dose, On Sat03/25/24 at 1930 1919 (New Bag - Prov ider: Maggie Pagan RN)[id number] (Stopped - Provider: Summer Escobar RN) documented in this encounter Care Teams Bioinformatics Software Engineer Relationship Specialty Start Date End Date Carmelita Olivera MD [address] [place] [address] PCP - General Family Medicine 03/25/24 documented as of this encounter
--- OUTSIDE RECORDS SUMMARY | 2024-03-31 14:19 | XMS_ITS | Encounter Summary ---
Author Organization [facility] Healthcare Address [address] [place] [address] Care Team Providers Care Picture Framer Name Role Phone Brian Madera MD Unavailable [phone] Carmelita Olivera MD Primary Care Provide r Reason for Visit * Reason Onset Date Comments Insurance 10/22/2023 Encounter Details Date Type Department Care Team (Late st Contact Info) Description 10/22/2023 Telephone [facility] Medical Group Primary Care at [address] [place] [id number] Carmelita Olivera MD [address] [place] [address] [address] [place] [address] Insurance Social History Tobacco Use Types Packs/Day Years Used Date Smoking Tobacco: Never Smokeless Tobacco: Never Alcohol Use Standard Drinks/Week Comments No 0 (1 standard drink = 0.6 oz pur e alcohol) AUDIT-C Answer Date Recorded Q1: How often do you have a drink containing alcohol? Never 10/23/2023 Q2: How many drinks containi ng alcohol do you have on a typical day when you are drinking? Patient does not drink Q3: How often do you have si x or more drinks on one occasion? Never 10/23/2023 PHQ-2 Answer Date Recorded PHQ-2 Total Score (If total score is 3 or more points, staff should administer the PHQ-9) 0 10/23/2023 Personal Safety Answer Date Recorded Have you ever been in or are you currently in a harmful physical or emotional relationship or is someone making you feel afraid or unsafe? Denies 10/20/2023 Comments No Sex and Gender Information Value Date Recorded Sex Assigned at Not on file Legal Sex Female 8:45 PM MALTER OPERATOR Gender Identity Female 04/25/2021 2:46 PM MALTER OPERATOR Sexual Orientation Straight 04/25/2021 2: 46 PM MALTER OPERATOR documented as of this encounter Miscellaneous Notes * Telephone Encounter - Fortunato Gonzalez - 10/22/2023 3:20 PM CDT Called patient to ensure new insurance card was brought to appointment with PCP, insurance card will need current PCP listed Please advise documented in this encounter Plan of Treatment Not on file documented as of this encounter Visit Diagnoses Not on filedocumented in this encounter Care Teams Picture Framer Relationship Specialty Start Date End Date Carmelita Olivera MD [address] [place] [address] PCP - General Family Medicine 09/03/23 Brian Madera MD [address] [place] [address] Consulting Physician Neurology 04/02/22 documented as of this encounter
--- OUTSIDE RECORDS SUMMARY | 2024-03-31 14:19 | XMS_ITS | Encounter Summary ---
Author Organization [facility] Healthcare Address [address] [place] [address] Care Team Providers Care Director Process Name Role Phone Brain Madera MD Unavailable [phone] Carmelita Olivera MD Primary Care Provide r Yuliana Simmons [facility] Unavailable [phone] Reason for Visit * Reason Onset Date Comments Persons with Disabilities Certification for Park rasheeda [place] 01/30/2024 Encounter Details Date Type Department Care Team (Late st Contact Info) Description 01/30/2024 Telephone [facility] Primary Care at [address] [address] Carmelita Olivera MD [address] [place] [address] Persons with Disabilities Certification for Parkinosbaldo [place] Social History Tobacco Use Types Packs/Day Years Used Date Smoking Tobacco: Never Smokeless Tobacco: Never Alcohol Use Standard Drinks/Week Comments No 0 (1 standard drink = 0.6 oz pur e alcohol) [facility] Utilities Answer Date Recorded In the past [...] often do you attend chur ch or hinduism services? Never 12/17/2023 Do you belong to any clubs o r organizations such as samaritan groups, unions, fraternal or athletic groups, or [...] any time in the past 12 m [facility], were you homeless or living in a longterm (including now)? No 12/17/2023 Personal Safety Answer Date Recorded Have you ever been in or are you currently in a harmful physical or emotional relationship or is someone making you feel afraid or unsafe? Denies 11/20/2023 Comments No Sex and Gender Information Value Date Recorded Sex Assigned at Not on file Legal Sex Female 8:45 PM DATA WAREHOUSE ANALYST Gender Identity Female 04/25/2021 2:46 PM DATA WAREHOUSE ANALYST Sexual Orientation Straight 04/25/2021 2: 46 PM DATA WAREHOUSE ANALYST documented as of this encounter Miscellaneous Notes * Telephone Encounter - Delphine Key MA - 02/04/2024 9:29 AM CDT Attempted to contact Annita's daughter with no answer. LMOM to contact the office back. If Annita calls back, please relay message from Dr. Maya. * Telephone Encounter - Carmelita Olivera MD - 02/04/2024 9:25 AM CDT She would need an office visit. She can bring the form to her next visit and it can take up to 5-7 business days for completion * Telephone Encounter - Yuliana Simmons LCSW - 01/30/2024 2:[address] Olivera, My name is Yuliana Simmons LCSW and I am a Clinical Nascar Racer with the [facility]'s ([facility]) Accountable Care Organization (ACO). Ms. Annita Bose's daughter, Toyin, asks if you'd complete the paperwork for Annita to get a handicap placard. I found the following website that appears to be the application that needs to be completed: [email or web address]_[email or web address] Thanks for your time and consideration. Yuliana Simmons, TANMAY, SHERIFFS DETECTIVE Clinical Nascar Racer [facility] ([facility]) Accountable Care Organization (ACO) documented in this encounter Plan of Treatment Not on file documented as of this encounter Visit Diagnoses Not on filedocumented in this encounter Care Teams Director Process Relationship Specialty Start Date End Date Carmelita Olivera MD [address] [facility] [address] [place] [address] PCP - General Family Medicine 09/03/23 Brian Madera MD [address] [facility] [address] [place] [address] Consulting Physician Neurology 04/02/22 Yuliana Simmons LCSW [address] [place] [address] [address] [place] [address] Nascar Racer Manager Chemistry 12/12/23 02/16/24 documented as of this encounter
--- OUTSIDE RECORDS SUMMARY | 2024-03-31 14:19 | XMS_ITS | Encounter Summary ---
Author Organization [facility] Healthcare Address [address] [place] [address] Care Team Providers Care Animal Pathologist Name Role Phone Brian Madera MD Unavailable [phone] Carmelita Olivera MD Primary Care Provide r Reason for Visit * Reason Comments Constipation Stomach pains starte d today at adult day care Encounter Details Date Type Department Care Team (Late st Contact Info) Description 03/27/2024 6:30 PM RANCH MANAGER Office Visit [facility] [place] [address] [place] [address] [address] [place] [address] Jacquelin Quinteros, NORMAN [address] [place] [address] Constipation, unspecified constipation type (Primary Dx) Social History Tobacco Use Types Packs/Day Years Used Date Smoking Tobacco: Never Smokeless Tobacco: Never Tobacco Cessation:Counseling Given: Not Answered Alcohol Use Standard Drinks/Week Comments No 0 (1 standard drink = 0.6 oz pur e alcohol) [facility] Utilities Answer Date Recorded In the past [...] often do you attend chur ch or yazdanism services? Never 12/17/2023 Do you belong to [...] any time in the past 12 m [facility], were you homeless or living in a chcf (including now)? No 12/17/2023 Personal Safety Answer Date Recorded Have you ever been in or are you currently in a harmful physical or emotional relationship or is someone making you feel afraid or unsafe? Denies 11/20/2023 Comments No Sex and Gender Information Value Date Recorded Sex Assigned at Not on file Legal Sex Female 8:45 PM RANCH MANAGER Gender Identity Female 04/25/2021 2:46 PM RANCH MANAGER Sexual Orientation Straight 04/25/2021 2: 46 PM RANCH MANAGER documented as of this encounter Last Filed Vital Signs Vital Sign Reading Time Taken Comments Blood Pressure 134/78 03/27/2024 6:33 PM RANCH MANAGER Pulse 67 03/27/2024 6:33 PM RANCH MANAGER Temperature 36.6 ??C (97.8 ??F) 03/27/2024 6:33 PM CS T Respiratory Rate 15 03/27/2024 6:33 PM RANCH MANAGER Oxygen Saturation 99% 03/27/2024 6:33 PM RANCH MANAGER Inhaled Oxygen Concentration - - Weight 58.1 kg (128 lb) 03/27/2024 6:33 PM RANCH MANAGER Height 147.3 cm (4' 10 ) 03/27/2024 6:33 PM RANCH MANAGER Body Mass Index 26.75 03/27/2024 6:33 PM RANCH MANAGER documented in this encounter Patient Instructions * Patient Instructions* Jacquelin Quinteros NP - 03/27/2024 6:30 PM RANCH MANAGER .talonce H MANAGER documented in this encounter Progress Notes * Jacquelin Quinteros NP - 03/27/2024 6:30 PM CST Images from the original note were not included. Subjective/Objective Patient ID: Annita Bose is a 83 y.o. female. Chief Complaint Constipation (Stomach pains started today at adult day care) Presents to [facility] Care with complaint of sharp rectal pain and pain to upper thighs bilaterally, onset this evening. Patient's daughter reports patient has been unable to have a bowel movement despite several attempts. She took a laxative this evening and is unable to defecate. Review of Systems All systems reviewed and are negative or non contributory for this patient's presentation today other than as stated in the HPI. Physical Exam Eyes: Conjunctiva/sclera: Conjunctivae normal. Cardiovascular: Rate and Rhythm: Normal rate. Pulmonary: Effort: Pulmonary effort is normal. Abdominal: Tenderness: There is no abdominal tenderness. Hernia: No hernia is present. Skin: General: Skin is warm and dry. Neurological: Mental Status: She is alert. Psychiatric: Mood and Affect: Mood normal. Vitals: 03/27/24 1833 BP: 134/78 Pulse: 67 Resp: 15 Temp: 36.6 ??C (97.8 ??F) TempSrc: Oral SpO2: 99% Weight: 58.1 kg (128 lb) Height: 147.3 cm (4' 10 ) No results found for this or any previous visit (from the past 4 hours). Assessment/Plan Patient appears uncomfortable and intermittently raises up to keep buttocks off of chair. Suspicious for fecal impaction. Advised patient to go to emergency room for additional diagnostics. Patient'sdaughter verbalizes understanding. She states she is unsure which emergency room she will go to. Diagnoses and all orders for this visit: Constipation, unspecified constipation type (Primary) Patient Education: Due to diagnostic limitations in the Convenient Care, we are unable to rule out critical problems including cardiac, neurological and abdominal etiologies. Your symptoms and examination today warrantimmediate evaluation in the Emergency Room to rule out a critical diagnosis. I advise you to go directly to the Emergency Room for evaluation. If while in route to the hospital, you experience worsening symptoms including chest pain, shortness of breath, mental status changes, or abdominal pain- call 911 immediately for emergent transportation. Disposition Treatment plan including expectations, follow up, and return precautions discussed with patient/parent, verbalizes understanding. Medication dosage, use, and potential adverse reactions discussed with patient/parent. Advised to follow up with PCP if symptoms do not resolve as expected or sooner if condition worsens. Signs/symptoms warranting ER evaluation reviewed. Patient and/or guardian was given an opportunity to ask questions, questions answered. Jacquelin Quinteros NP H MANAGER documented in this encounter Plan of Treatment Not on file documented as of this encounter Visit Diagnoses Diagnosis Constipation, unspecified constipation type- Primary documented in this encounter Care Teams Animal Pathologist Relationship Specialty Start Date End Date Carmelita Olivera MD [address] [facility] [address] [place] [address] PCP - General Family Medicine 09/03/23 Brian Madera MD [address] [facility] [address] [place] [address] Consulting Physician Neurology 04/02/22 documented as of this encounter
--- OUTSIDE RECORDS SUMMARY | 2024-03-31 14:19 | XMS_ITS | Encounter Summary ---
Author Organization [facility] Healthcare Address [address] [place] [address] Care Team Providers Care Blueprint Processor Name Role Phone Brian Madera MD Unavailable [phone] Carmelita Olivera MD Primary Care Provide r Mikala Sheth MA Unavailable [phone] Reason for Visit * Reason Comments Unsuccessful Phone Call 1 Day 1 - UTC x 1 Encounter Details Date Type Department Care Team (Late st Contact Info) Description 11/21/2023 [place] ED Outreach [facility] Accountable Care Organization [address] [place] [address] Mikala Sheth MA [address] [place] [address] [address] [place] [id number] Social History Tobacco Use Types Packs/Day Years [...] on file Legal Sex Female 8:45 PM MULTIMEDIA SPECIALIST Gender Identity Female 04/25/2021 2:46 PM MULTIMEDIA SPECIALIST Sexual Orientation Straight 04/25/2021 2: 46 PM MULTIMEDIA SPECIALIST documented as of this encounter Progress Notes * Mikala Sheth MA - 11/21/2023 10:13 AM CDT Care high school academic coach attempted to reach patient in relation to patient's recent ED visit at [facility] on 11/20/2023 (5 hours) for Chest pain, unspecified type Anxiety. Patient does need to follow up with primary care physician by 11/27/2023. Care high school academic coach will attempt to reach patient again. Care high school academic coach contact information was not left on patients voicemail due to it being full. [facility] letter sent to patient via [employer] [facility] x 1 outreach attempt. Thank you, Mikala Sheth [facility]CO Care Bunch Maker Hand [facility] [phone] documented in this encounter Plan of Treatment Not on file documented as of this encounter Visit Diagnoses Not on filedocumented in this encounter Care Teams Blueprint Processor Relationship Specialty Start Date End Date Carmelita Olivera MD [address] [facility] [address] [place] [address] PCP - General Family Medicine 09/03/23 Brian Madera MD [address] [facility] [address] [place] [address] Consulting Physician Neurology 04/02/22 Mikala Sheth MA [address] [place] [address] [address] ACO Care Bunch Maker Hand 11/21/23 11/21/23 documented as of this encounter
--- OUTSIDE RECORDS SUMMARY | 2024-03-31 14:19 | XMS_ITS | Encounter Summary ---
Author Organization [facility] Healthcare Address [address] [place] [address] Care Team Providers Care Risk Mgr Name Role Phone Brian Madera MD Unavailable [phone] Carmelita Olivera MD Primary Care Provide r Yuliana Simmons [facility] Unavailable [phone] Reason for Visit * Reason Onset Date Comments Rollator 01/30/2024 Encounter Details Date Type Department Care Team (Late st Contact Info) Description 01/30/2024 Telephone [facility] Primary Care at [address] [place] [id number] Carmelita Olivera MD [address] [place] [address] Rollator Social History Tobacco Use Types Packs/Day Years Used Date Smoking Tobacco: Never Smokeless Tobacco: Never Alcohol Use Standard Drinks/Week Comments No 0 (1 standard drink = 0.6 oz pur e alcohol) [facility] Utilities Answer Date Recorded In [...] often do you attend chur ch or orthodoxy services? Never 12/17/2023 Do you belong to any clubs o r organizations such as anabaptism groups, unions, fraternal or athletic groups, or [...] any time in the past 12 m [facility], were you homeless or living in a senior living (including now)? No 12/17/2023 Personal Safety Answer Date Recorded Have you ever been in or are you currently in a harmful physical or emotional relationship or is someone making you feel afraid or unsafe? Denies 11/20/2023 Comments No Sex and Gender Information Value Date Recorded Sex Assigned at Not on file Legal Sex Female 8:45 PM CHIEF HYDROELECTRIC STATION OPERATOR Gender Identity Female 04/25/2021 2:46 PM CHIEF HYDROELECTRIC STATION OPERATOR Sexual Orientation Straight 04/25/2021 2: 46 PM CHIEF HYDROELECTRIC STATION OPERATOR documented as of this encounter Miscellaneous Notes * Telephone Encounter - Yuliana Simmons LCSW - 01/30/2024 2:[address] Olivera, My name is Yuliana Simmons LCSW and I am a Clinical Hip Hop Artist with the [facility]'s ([facility]) Accountable Care Organization (ACO). The patient's daughter, Toyin, asks if you'd order the patient a rollator. If you're agreeable, please place an order into [employer] and have the order sent to [facility] (they don't check for orders in Epic). [facility] Thanks for your time and consideration. TANMAY Carrillo, ELVIRA Clinical Hip Hop Artist [facility] ([facility]) Accountable Care Organization (ACO) documented in this encounter Plan of Treatment Not on file documented as of this encounter Visit Diagnoses Not on filedocumented in this encounter Care Teams Risk Mgr Relationship Specialty Start Date End Date Carmelita Olivera MD [address] [place] [address] PCP - General Family Medicine 09/03/23 Brian Madera MD [address] [place] [address] Consulting Physician Neurology 04/02/22 Yuliana Simmons, [address] [place] [address] Hip Hop Artist Investor Relations Specialist 12/12/23 02/16/24 documented as of this encounter
--- OUTSIDE RECORDS SUMMARY | 2024-03-31 14:19 | XMS_ITS | Encounter Summary ---
Author Organization [facility] Healthcare Address [address] [place] [address] Care Team Providers Care Tack Welder Name Role Phone Brian Madera MD Unavailable [phone] Carmelita Olivera MD Primary Care Provide r Reason for Visit * Reason Comments Chest Pain ED f/u: Pt states he r chest pain has resolved since ED visit. Encounter Details Date Type Department Care Team (Late st Contact Info) Description 11/25/2023 3:30 PM CDT Office Visit [facility] Group Primary Care at [address] [phone] Carmelita Olivera MD [address] [place] [address] Other chest pain (Primary Dx) Social History Tobacco Use Types [...] staff should administer the PHQ-9) 0 11/25/2023 Personal Safety Answer Date Recorded Have you ever been in or are you currently in a harmful physical or emotional relationship or is someone making you feel afraid or unsafe? Denies 11/20/2023 Comments No Sex and Gender Information Value Date Recorded Sex Assigned at Not on file Legal Sex Female 8:45 PM MARBLE CARVER Gender Identity Female 04/25/2021 2:46 PM MARBLE CARVER Sexual Orientation Straight 04/25/2021 2: 46 PM MARBLE CARVER documented as of this encounter Last Filed Vital Signs Vital Sign Reading Time Taken Comments Blood Pressure 124/62 11/25/2023 3:10 PM CDT Pulse 55 11/25/2023 3:10 PM CDT Temperature 36.9 ??C (98.4 ??F) 11/25/2023 3:10 PM C DT Respiratory Rate 16 11/25/2023 3:10 PM CDT Oxygen Saturation 100% 11/25/2023 3:10 PM CDT Inhaled Oxygen Concentration - - Weight 56.4 kg (124 lb 6.4 oz) 11/25/2023 3:10 P M CDT Height 147.3 cm (4' 10 ) 11/25/2023 3:10 PM CDT Body Mass Index 26 11/25/2023 3:10 PM CDT documented in this encounter Patient Instructions * Patient Instructions* Carmelita Olivera MD - 11/25/2023 3:30 PM CDT My medical research tech and I are thankful you have trusted us with your care, and hope that you received EXCELLENT care today! Please do not hesitate to call if you have any questions or concerns. You may receive a phone call or text asking about your care today. We would love to hear your input and again, hope your visit was as EXCELLENT as possible, even if you were not feeling your best! -Dr. Olivera documented in this encounter Progress Notes * Carmelita Olivera MD - 11/25/2023 3:30 PM CDT Images from the original note were not included. Subjective/Objective Patient ID: Annita Bose is a 83 y.o. female. Chief Complaint Chest Pain (ED f/u: Pt states her chest pain has resolved since ED visit. /) HPI 83 y.o.female coming in for ED follow up for chest pain. Trops negative and other labs are normal. The chest pain ended up being a result of her arguing with her daughter. Discussed working on communication between the two of them. Her daughter is mainly giving instructions so that she does not hurt herself but she would like a bit more independence. Review of Systems Constitutional: Negative for chills and fever. Respiratory: Negative for cough and shortness of breath. Cardiovascular: Negative for chest pain. Gastrointestinal: Negative for abdominal pain. Vitals: 11/25/23 1510 BP: 124/62 BP Location: Left arm Patient Position: Sitting Pulse: 55 Resp: 16 Temp: 36.9 ??C (98.4 ??F) SpO2: 100% Weight: 56.4 kg (124 lb 6.4 oz) Height: 147.3 cm (4' 10 ) Admission on 11/20/2023, Discharged on 11/20/2023 Component Date Value WBC 11/20/2023 6.4 Hgb 11/20/2023 13.0 Hct 11/20/2023 40.5 Plt 11/20/2023 218 MPV 11/20/2023 9.7 RBC 11/20/2023 4.83 MCV 11/20/2023 83.9 MCH 11/20/2023 26.9 (L) MCHC 11/20/2023 32.1 (L) RDW CV 11/20/2023 13.1 RDW SD 11/20/2023 39.9 NRBC abs 11/20/2023 0.00 Sodium 11/20/2023 140 Potassium, pl 11/20/2023 4.0 Chloride 11/20/2023 103 CO2 11/20/2023 28 Anion gap 11/20/2023 9 BUN 11/20/2023 12 Creatinine 11/20/2023 0.68 Glucose 11/20/2023 66 (L) Calcium 11/20/2023 9.4 Bilirubin, total 11/20/2023 0.4 Protein, pl 11/20/2023 6.4 (L) Albumin 11/20/2023 3.7 Alk phos 11/20/2023 79 ALT 11/20/2023 9 AST 11/20/2023 17 Trop T hs 11/20/2023 9 Neutrophil abs 11/20/2023 4.0 Imm gran abs 11/20/2023 0.0 Lymphocyte abs 11/20/2023 1.8 Monocyte abs 11/20/2023 0.5 Eosinophil abs 11/20/2023 0.1 Basophil abs 11/20/2023 0.1 Neutrophil pct 11/20/2023 62.1 Imm gran pct 11/20/2023 0.2 Lymphocyte pct 11/20/2023 28.4 Monocyte pct 11/20/2023 7.2 Eosinophil pct 11/20/2023 1.3 Basophil pct 11/20/2023 0.8 Trop T hs 11/20/2023 10 Trop T hs delta 11/20/2023 1 Trop T hs interp 11/20/2023 Insignificant eGFR 11/20/2023 87 ECG 12 Lead IMPRESSION: SINUS RHYTHM LOW QRS VOLTAGE IN PRECORDIAL LEADS [QRS DEFLECTION < 1.0 mV IN CHEST LEADS] BORDERLINE ECG NO CHANGE FROM PREVIOUS TRACING NOTED Physical Exam Constitutional: General: She is not in acute distress. Appearance: She is well-developed. Neck: Thyroid: No thyromegaly. Cardiovascular: Rate and Rhythm: Normal rate and regular rhythm. Heart sounds: Normal heart sounds. No murmur (no edema) heard. Pulmonary: Effort: Pulmonary effort is normal. No respiratory distress. Breath sounds: Normal breath sounds. No wheezing or rales. Musculoskeletal: Cervical back: Normal range of motion and neck supple. Lymphadenopathy: Cervical: No cervical adenopathy (no bruits). Assessment/Plan Diagnoses and all orders for this visit: Other chest pain (Primary) Assessment & Plan: New concern resolved Likely anxiety/stress induced given history of patient arguing with daughter prior to symptoms ED workup negative See above for ecg and labs F/u if no improvement, report back to ED should chest pain reoccur Side effects, risks, interactions reviewed with patient. Indications for testing discussed. Any further problems to contact us. She was told what to look out for and verbalized understanding. The patient was given the opportunity to have all questions answered today and was in agreement with the plan of care. Carmelita Olivera MD documented in this encounter Miscellaneous Notes * Assessment & Plan Note - Carmelita Olivera MD - 11/22/2023 9:19 AM CDT Associated Problem(s): Other chest pain New concern resolved Likely anxiety/stress induced given history of patient arguing with daughter prior to symptoms ED workup negative See above for ecg and labs F/u if no improvement, report back to ED should chest pain reoccur documented in this encounter Plan of Treatment Not on file documented as of this encounter Visit Diagnoses Diagnosis Other chest pain- Primary documented in this encounter Discontinued Medications Medication Sig Discontinue Reason Start Date End Da te omega-3 fatty acids 1,000 mg capsule Take by mouth Patient Discharge 11/25/2023 documented as of this encounter Care Teams Tack Welder Relationship Specialty Start Date End Date Carmelita Olivera MD [address] [facility] [address] [place] [address] PCP - General Family Medicine 09/03/23 Brian Madera MD [address] [facility] [address] [place] [address] Consulting Physician Neurology 04/02/22 documented as of this encounter
--- OUTSIDE RECORDS SUMMARY | 2024-03-31 14:19 | XMS_ITS | Encounter Summary ---
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) 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) Carmelita Olivera MD [address] [place] [address] [address] [place] [address] Phone: tel: fax: Brian Madera MD [address] [place] [address] [address] [place] [address] Phone: tel: fax: Referral ID Status Reason Start Date Expiration Date V isits Requested Visits Authorized [id number] Closed Specialty Services Required 01/20/2024 01/24/2024 1 1 Encounter Details Date Type Department Care Team (Late Contact Info) Description 01/23/2024 1:30 PM CDT Office Visit [facility] [address] [facility] [address] [place] [id number] Kate Diaz NP [address] [facility] [address] [place] [address] 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 Never 12/17/2023 Do you belong to any clubs o r organizations such as rastafarian groups, unions, fraternal or athletic groups, or [...] any time in the past 12 m [facility], were you homeless or living in a fpc (including now)? No 12/17/2023 Personal Safety Answer Date Recorded Have you ever been in or are you currently in a harmful physical or emotional relationship or is someone making you feel afraid or unsafe? Denies 11/20/2023 Comments No Sex and Gender Information Value Date Recorded Sex Assigned at Not on file Legal Sex Female 8:45 PM CRACKING MACHINE OPERATOR Gender Identity Female 04/25/2021 2:46 PM CRACKING MACHINE OPERATOR Sexual Orientation Straight 04/25/2021 2: 46 PM CRACKING MACHINE OPERATOR documented as of this encounter Last Filed Vital Signs Vital Sign Reading Time Taken Comments Blood Pressure 105/65 01/23/2024 1:46 PM CDT Pulse 67 01/23/2024 1:46 PM CDT Temperature - - Respiratory Rate - - Oxygen Saturation 95% 01/23/2024 1:46 PM CDT Inhaled Oxygen Concentration - - Weight 55.4 kg (122 lb 3.2 oz) 01/23/2024 1:46 P M CDT Height 147.3 cm (4' 10 ) 01/23/2024 1:46 PM CDT Body Mass Index 25.54 01/23/2024 1:46 PM CDT documented in this encounter Progress Notes * Kate Diaz NP - 01/23/2024 1:30 PM CDT Subjective/Objective Patient ID: Annita Bose is a 83 y.o. female. Chief Complaint I am seeing this 83 y.o. female in consultation requested by Dr. Jocelynn Coy DO for dementia. Memory Loss For details, see 11/17/2021 note. Since last visit on 07/12/2023 patient reported that her memory has been getting worse. Daughter reports she got lost a month or two ago, she thought someone was outside. She saw children who were notthere. She was scared sometimes because of visual hallucination. She still has significant memory problem. She has been on memantine 10 mg b.i.d. and donepezil 5mg daily and tolerated well. She triale d seroquel, had allergic reaction and had to go to ER. Has been on Ativan from PCP. It works well. Past medical history: Hypertension Hyperlipidemia Cataract Allergies Allergen Reactions Quetiapine Hallucinations Current Outpatient Medications Medication Sig Dispense Refill amLODIPine (NORVASC) 10 mg tablet TAKE 1 TABLET BY MOUTH EVERY DAY AT NIGHT 90 tablet 1 atorvastatin (LIPITOR) 20 mg tablet TAKE 1 TABLET BY MOUTH EVERY DAY AT NIGHT 90 tablet 1 blood glucose diagnostic strip Use one strip to monitor home blood sugars daily. 100 each 3 blood-glucose meter kit 1 Device daily 1 each 0 coenzyme Q10 100 mg capsule Take 1 capsule (100 mg total) by mouth daily donepeziL (ARICEPT) 5 mg tablet TAKE 1 TABLET BY MOUTH EVERY DAY AT NIGHT 90 tablet 1 lancets 31 gauge misc 1 Device daily 100 each 3 lisinopriL (PRINIVIL,ZESTRIL) 2.5 mg tablet TAKE 1 TABLET BY MOUTH EVERY DAY 90 tablet 0 LORazepam (ATIVAN) 0.5 mg tablet TAKE 1 TAB BY MOUTH EVERY MORNING AND 2 TABS EVERY EVENING NEEDED FOR ANXIETY. 90 tablet 0 memantine (NAMENDA) 10 mg tablet TAKE 1 TABLET BY MOUTH TWICE A DAY 180 tablet 1 metFORMIN XR (GLUCOPHAGE XR) 500 mg 24 hr tablet TAKE 1 TABLET BY MOUTH EVERY DAY WITH BREAKFAST 90tablet 1 sodium chloride (TRISTAN 128) 5 % ophthalmic solution Administer 1 drop into both eyes as needed No current facility-administered medications for this visit. has a current medication list which includes the following prescription(s): amlodipine, atorvastatin, blood glucose diagnostic, blood-glucose meter, coenzyme q10, donepezil, lancets, lisinopril, lorazepam, memantine, metformin xr, and sodium chloride. Family History Problem Relation Age of Onset Breast cancer Sister Breast cancer Sister Colon cancer Sister Social History Tobacco Use Smoking status: Never Smokeless tobacco: Never Substance and Sexual Activity Drug use: No Sexual activity: None Alcohol Use: Not At Risk (10/23/2023) AUDIT-C Frequency of Alcohol Consumption: Never Average Number of Drinks: Patient does not drink Frequency of Binge Drinking: Never BP 105/65 (BP Location: Right arm, Patient Position: Sitting) Pulse 67 Ht 147.3 cm (4' 10 ) Wt 55.4 kg (122 lb 3.2 oz) SpO2 95% BMI 25.54 kg/m?? Physical Exam Mental status: alert, speech fluent, comprehension intact, follow command appropriately Cranial nerve: RENALDO, corneal reflex present. EOMI, VFF by confrontation method. Facial sensations symmetrical. Face symmetrical. Motor: bulk normal, tone normal, pronator drift negative. Strength 5/5. No abnormal movement. Sensation: LT Normal and symmetrical. Gait: Could walk independently Assessment/Plan I am seeing this 82 y.o. female in consultation requested by Dr. Jocelynn Coy, for dementia and new hallucination. 1. Memory loss: 03/18/2023 [place] cognitive assessment today showed [place] cognitive assessment 14/30 (visuospatial/executive -4, naming -2, attention -4, language -2, delayed recall -5, orientation -1). CSF Alzheimer's disease biomarker is supportive diagnosis of Alzheimer's dementia. Exelon patch caused skin irritation. 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 b.i.d. Hallucination: 1. Discussed with family about the fact that medication for hallucination normally will short life spine. Well leave it alone without treatment unless the hallucination cause significant disturbance to patient or patient's family. 2. Ativan PRN from PCP (allergy to seroquel) Past investigations: 1. 01/17/2022 MRI of the brain without: No acute intracranial process. Mild periventricular hyperintensity T2/FLAIR foci suggestive of nonspecific small vessel white matter disease. No evidence of hydrocephalus. I reviewed the image. 2. 11/17/2021 TSH 1.51. Folic acid more than 20. Vitamin B6 8. Vitamin B12 649. P tau/Abeta42 0.035 (</= 0.023). Abeta 42 699 (>1026 pg/mL). Total tau 265 (<=238 pg/mL). Phospho tau 24.5 (<=21.7 pg/mL) 3. 11/17/2021 [place] cognitive assessment 15/30 (visuospatial/executive -4, naming -1, attention -4, language -2, delayed recall -5) 4. 08/10/2022- [place] cognitive assessment today showed [place] cognitive assessment 15/30 (visuospatial/executive -4, naming -1, attention -4, language - 2, delayed recall -5, orientation -1). 5. 03/18/2023 [place] cognitive assessment today showed [place] cognitive assessment 14/30 (visuospatial/executive -4, naming -2, attention -4, language - 2, delayed recall -5, orientation -1). My total encounter time on 01/23/2024 was 30 minutes which was spent in the activities documented in the note. This includes time spent prior to the visit and after the visit in direct care of the patient. This time does not include time spent in any separately reportable services. Return in about 6 months (around 07/23/2024). 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) 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) documented in this encounter Orders Outpatient Referral Count Last Ordered Date st Ordered Date AMB REFERRAL TO NEUROLOGY 1 01/23/2024 documented in this encounter Care Teams Aquatic Life Laborer Relationship Specialty Start Date End Date Carmelita Olivera MD [address] [place] [address] [place] [address] PCP - General Family Medicine 09/03/23 Brian Madera MD [address] [facility] [address] [place] [address] Consulting Physician Neurology 04/02/22 Yuliana Simmons, [address] [place] [address] Regional Trainer Pneumatic Hoist Operator 12/12/23 02/16/24 documented as of this encounter
--- OUTSIDE RECORDS SUMMARY | 2024-03-31 14:19 | XMS_ITS | Encounter Summary ---
Author Organization [facility] Healthcare Address [address] [place] [address] Care Team Providers Care Transportation Specialist Name Role Phone Brian Madera MD Unavailable [phone] Carmelita Olivera MD Primary Care Provide r Reason for Visit * Reason Comments Successful Phone Call Encounter Details Date Type Department Care Team (Late st Contact Info) Description 03/26/[address] [place] [address] [facility] Accountable Care Organization [address] [place] [address] Renetta Mcginnis MA [address] [place] [address] [address] [place] [id number] Social History Tobacco Use Types Packs/Day Years Used Date Smoking Tobacco: Never Smokeless Tobacco: Never Alcohol Use Standard Drinks/Week Comments No 0 (1 standard drink = 0.6 oz pur e alcohol) [facility] Utilities Answer Date Recorded In the [...] 12/17/2023 How often do you attend chur or confucianist services? Never 12/17/2023 Do you belong to any clubs o r organizations such as yarsani groups, unions, fraternal or athletic groups, or [...] any time in the past 12 m [facility], were you homeless or living in a halfway (including now)? No 12/17/2023 Personal Safety Answer Date Recorded Have you ever been in or are you currently in a harmful physical or emotional relationship or is someone making you feel afraid or unsafe? Denies 11/20/2023 Comments No Sex and Gender Information Value Date Recorded Sex Assigned at Not on file Legal Sex Female 8:45 PM CIGAR MACHINE FEEDER Gender Identity Female 04/25/2021 2:46 PM CIGAR MACHINE FEEDER Sexual Orientation Straight 04/25/2021 2: 46 PM CIGAR MACHINE FEEDER documented as of this encounter Progress Notes * Renetta Mcginnis MA - 03/26/2024 2:26 PM CST Care Mva Still Operator contacted patient regarding recent ED visit at [facility]- 03/25 - Dementia, Visual hallucinations. Status of Reason for ED Visit - Better Status Details: - Spoke to Dtr Toyin doing well, symptoms are improving. Dtr stated she is keepingher in her room with her today, right now sitting up watching TV, she is pushing the fluids. Did ask if was okay to take melatonin at night, will sned that message in with apt message. Pt did sleep better last night. Pt has no new symptoms. Discharge Instructions Reviewed - Yes Details: - Medication Reconciliation Completed - No new medications given and no changes with home medications. Details: - ED Follow-Up Appointment - Not scheduled. Details: - No provider availability within recommended time frame -- message sent to PCP's office for scheduling assistance. Patient educated about same day sick appts at PCP office and when to utilize office vs urgent care vs ED. Pt verbalized understanding of information presented. No additional needs identified at this time. Provided my contact information for future needs. R MACHINE FEEDER documented in this encounter Plan of Treatment Not on file documented as of this encounter Visit Diagnoses Not on filedocumented in this encounter Care Teams Transportation Specialist Relationship Specialty Start Date End Date Carmelita Olivera MD [address] [facility] [address] [place] [address] PCP - General Family Medicine 09/03/23 Brian Madera MD [address] [facility] [address] [place] [address] Consulting Physician Neurology 04/02/22 documented as of this encounter
--- OUTSIDE RECORDS SUMMARY | 2024-03-31 14:19 | XMS_ITS | Encounter Summary ---
Author Organization [facility] Healthcare Address [address] [place] [address] Care Team Providers Care Petroleum Blending Plant Operator Name Role Phone Brian Madera MD Unavailable [phone] Carmelita Olivera MD Primary Care Provide r Encounter Details Date Type Department Care Team (Late st Contact Info) Description 03/30/2024 Telephone [facility] Medical Group Primary Care at [address] [place] [phone] Carmelita Olivera MD [address] [place] [address] [address] [place] [address] Social History Tobacco Use Types Packs/Day Years Used Date Smoking Tobacco: Never Smokeless Tobacco: Never Alcohol Use Standard Drinks/Week Comments No 0 (1 standard drink = 0.6 oz pur e alcohol) [facility] Utilities Answer Date Recorded In the past 12 months has [employer], gas, oil, or water [employer] threatened to shut off services in your home? No 12/17/2023 Social Connection and Isolat ion Panel [NHANES] Answer Date Recorded Frequency of Communication w ith Friends and Family Not on file 12/17/2023 How often do you get togethe r with friends or relatives? More than three times a week 12/17/2023 How often do you attend chur or voodoo services? Never 12/17/2023 Do you belong to any clubs o r organizations such as hinduism groups, unions, fraternal or athletic groups, or [...] any time in the past 12 m [facility], were you homeless or living in a snf (including now)? No 12/17/2023 Personal Safety Answer Date Recorded Have you ever been in or are you currently in a harmful physical or emotional relationship or is someone making you feel afraid or unsafe? Denies 11/20/2023 Comments No Sex and Gender Information Value Date Recorded Sex Assigned at Not on file Legal Sex Female 8:45 PM VIBRATION ENGINEER Gender Identity Female 04/25/2021 2:46 PM VIBRATION ENGINEER Sexual Orientation Straight 04/25/2021 2: 46 PM VIBRATION ENGINEER documented as of this encounter Miscellaneous Notes * Telephone Encounter - Delphine Key MA - 03/30/2024 8:52 AM CST Spoke with daughter Toyin, per HIPAA and switched appt to CD 03/02 at 11AM. ATION ENGINEER * Telephone Encounter - Faina Pompa MA - 03/30/2024 8:12 AM CST Patient's daughter called in. She said she will try to get her to her 8:45 appointment today but she is arguing with her and saying she isn't her daughter and doesn't want to go anywhere. Daughter wants to know if she can't get her to cooperate and come to today's appointment, is there somewhere else this week that she could bring her in? ATION ENGINEER documented in this encounter Plan of Treatment Not on file documented as of this encounter Visit Diagnoses Not on filedocumented in this encounter Care Teams Petroleum Blending Plant Operator Relationship Specialty Start Date End Date Carmelita Olivera MD [address] [facility] [address] [place] [address] PCP - General Family Medicine 09/03/23 Brian Madera MD [address] [facility] [address] [place] [address] Consulting Physician Neurology 04/02/22 documented as of this encounter
--- OUTSIDE RECORDS SUMMARY | 2024-03-31 14:19 | XMS_ITS | Encounter Summary ---
Author Organization [facility] Healthcare Address [address] [place] [address] Care Team Providers Care Biodiesel Production Associate Name Role Phone Brian Madera MD Unavailable [phone] Carmelita Olivera MD Primary Care Provide r Reason for Visit * Reason Comments Chest Pain Encounter Details Date Type Department Care Team (Late st Contact Info) Description 11/20/2023 12:59 PM CDT - 11/20/2023 6:32 PM CDT Emergency [facility] Emergency Department [address] [place] [address] Tiago Kerr MD [address] [place] [address] [address] [place] [address] Emigdio Mortensen MD [address] [place] [address] [place] [address] Chest pain, unspecified type (Primary Dx); Anxiety Discharge Disposition: Discharge to home or self care Social History Tobacco Use Types Packs/Day Years [...] on file Legal Sex Female 8:45 PM DIRECT CHILL CASTER Gender Identity Female 04/25/2021 2:46 PM DIRECT CHILL CASTER Sexual Orientation Straight 04/25/2021 2: 46 PM DIRECT CHILL CASTER documented as of this encounter Last Filed Vital Signs Vital Sign Reading Time Taken Comments Blood Pressure 101/50 11/20/2023 6:00 PM CDT Pulse 69 11/20/2023 6:00 PM CDT Temperature 36.3 ??C (97.4 ??F) 11/20/2023 12:56 PM C DT Respiratory Rate 20 11/20/2023 6:00 PM CDT Oxygen Saturation 96% 11/20/2023 6:00 PM CDT Inhaled Oxygen Concentration - - Weight 56.2 kg (124 lb) 11/20/2023 12:56 PM CDT Height 147.3 cm (4' 10 ) 11/20/2023 12:56 PM CDT Body Mass Index 25.92 11/20/2023 12:56 PM CDT documented in this encounter Medications at Time of Discharge blood glucose diagnostic stripIndications :Type 2 diabetes mellitus with hyperglycemia, without long-term current use of insulin ([facility]) Use one strip to monitor home blood sugars daily. 100 each 3 11/07/2020 blood-glucose meter kitIndications:T ype 2 diabetes mellitus with hyperglycemia, without long-term current use of insulin ([facility]) 1 Device daily 1 each 10/18/2020 coenzyme Q10 100 mg capsule Take 1 capsule (100 mg total) by mouth daily donepeziL (ARICEPT) 5 mg tablet TAKE 1 TABLET BY MOUTH EVERY DAY AT NIGHT 90 tablet 1 10/09/2023 lancets 31 gauge miscIndications: Type 2 diabetes mellitus with hyperglycemia, without long-term current use of insulin ([facility]) 1 Device daily 100 each 3 10/03/2020 memantine (NAMENDA) 10 mg tablet TAKE 1 TABLET BY MOUTH TWICE A DAY 180 tablet 1 09/12/2023 sodium chloride (TRISTAN 128) 5 % ophthalmic solution Administer 1 drop into both eyes as needed 02/27/2023 amLODIPine (NORVASC) 10 mg tabletIndication s:Hypertension associated with diabetes (HCC) TAKE 1 TABLET BY MOUTH EVERY DAY AT NIGHT 90 tablet 1 07/29/2023 4 atorvastatin (LIPITOR) 20 mg tabletIndication s:Hyperlipidemia associated with type 2 diabetes mellitus (HCC) TAKE 1 TABLET BY MOUTH EVERY DAY AT NIGHT 90 tablet 1 07/29/2023 4 lisinopriL (PRINIVIL,ZESTRI L) 2.5 mg tabletIndication s:Type 2 diabetes mellitus with hyperglycemia, without long-term current use of insulin ([facility]),Hypertensi on associated with diabetes (HCC) Take 1 tablet (2.5 mg total) by mouth daily 90 tablet 3 09/20/2022 4 LORazepam (ATIVAN) 0.5 mg tabletIndication s:anxiety Take 1 tab qam and 2 tab qpm prn anxiety. 90 tablet 5 06/24/2023 4 metFORMIN XR (GLUCOPHAGE XR) 500 mg 24 hr tabletIndication s:Type 2 diabetes mellitus with hyperglycemia, without long-term current use of insulin ([facility]) TAKE 1 TABLET BY MOUTH EVERY DAY WITH BREAKFAST 90 tablet 1 07/29/2023 4 omega-3 fatty acids 1,000 mg capsule Take by mouth 4 documented as of this encounter Discharge Disposition Disposition Code Departure Means Destination Comment s Discharge to home or self care documented in this encounter ED Notes * Tiago Kerr MD - 11/20/2023 1:37 PM CDT HPI Chief Complaint Patient presents with Chest Pain 83-year-old with a history of hypertension, diabetes, hyperlipidemia, dementia was brought in from home by ambulance with the complaints of midsternal chest pain. Patient states that she was arguing with her daughter and started developing chest pain. By the time the EMS was at their residence her pain subsided. Upon arrival to the ER patient has no complaints. She denies any shortness of breath. 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 Past Surgical History: Procedure Laterality Date CATARACT EXTRACTION Bilateral 09/07/2021 09/22/2021 FL FLUORO GUIDED LUMBAR PUNCTURE Right 01/17/2022 Family History Problem Relation Age of Onset Breast cancer Sister Breast cancer Sister Colon cancer Sister Social History Tobacco Use Smoking status: Never Smokeless tobacco: Never Vaping Use Vaping status: Never Used Substance and Sexual Activity Alcohol use: No Drug use: No Sexual activity: Not on file Social History Social History Narrative Not on file Review of Systems Review of Systems Constitutional: Negative. HENT: Negative. Eyes: Negative. Respiratory: Negative. Cardiovascular: Positive for chest pain. Genitourinary: Negative. Musculoskeletal: Negative. Neurological: Negative. Hematological: Negative. Psychiatric/Behavioral: Negative. Physical Exam ED Triage Vitals [11/20/23 1256] Temp Pulse Resp BP SpO2 36.3 ??C (97.4 ??F) 71 18 139/54 100 % Temp src Heart Rate Source Patient Position BP Location FiO2 (%) Temporal -- -- -- -- Height Height Method Weight Weight Method 1.473 m (4' 10 ) Stated 56.2 kg (124 lb) -- Physical Exam Vitals and nursing note reviewed. Constitutional: Appearance: She is well-developed. HENT: Head: Normocephalic and atraumatic. Cardiovascular: Rate and Rhythm: Normal rate and regular rhythm. Heart sounds: Normal heart sounds. Pulmonary: Effort: Pulmonary effort is normal. Breath sounds: Normal breath sounds. Abdominal: Palpations: Abdomen is soft. Musculoskeletal: General: Normal range of motion. Skin: General: Skin is warm and dry. Neurological: Mental Status: She is alert. MDM Medical Decision Making Amount and/or Complexity of Data Reviewed Radiology: ordered. ECG/medicine tests: ordered and independent interpretation performed. Risk OTC drugs. Final diagnoses: Chest pain, unspecified type Anxiety Tiago Kerr MD 11/20/23 1352 * Leslie Wolfe RN - 11/20/2023 12:59 PM CDT Bed: ED12 Expected date: Expected time: Means of arrival: Comments: [facility] Leslie Wolfe RN 11/20/23 1259 * Jamel Almanza RN - 11/20/2023 12:53 PM CDT Pt arrives to room 12 via EMS. Per EMS report pt was in heated argument with daughter and developedCP to midsternum. CP has now resolved. Pt alert and oriented and currently denies CP. documented in this encounter Miscellaneous Notes * ED Re-evaluation Note - Emigdio Mortensen MD - 11/20/2023 5:37 PM CDT ED Re-evaluation Received this patient at change of shift from Dr. Kerr. We have been awaiting a 2nd troponin level, which is back and is unchanged. Therefore we will discharge the patient home. She wants to be discharged home. Emigdio Mortensen MD 11/20/23 0048 * ED Procedure Note - Tiago Kerr MD - 11/20/2023 1:00 PM CDTAssociated Order(s): ECG 12 lead Procedure ECG 12 lead Date/Time: 11/20/2023 1:00 PM Performed by: Tiago Kerr MD Authorized by: Tiago Kerr MD Rate: ECG rate: 71 ECG rate assessment: normal Rhythm: Rhythm: sinus rhythm Ectopy: Ectopy: none QRS: QRS axis: Normal QRS intervals: Normal Conduction: Conduction: normal ST segments: ST segments: Normal Interpretation: Interpretation: normal Tiago Kerr MD 11/20/23 1301 documented in this encounter Plan of Treatment Not on file documented as of this encounter Procedures Procedure Name Priority Date/Time Associated Diagnosis Comments TROPONIN T HIGH-SENSITIVITY 2-HOUR Timed 11/20/2023 4:04 PM CDT TROPONIN T HIGH-SENSITIVITY SERIES (BASELINE, 2HR, 4HR, 6HR) STAT 11/20/2023 1:47 PM CDT EGFR STAT 11/20/2023 1:47 PM CDT DIFFERENTIAL AUTO STAT 11/20/2023 1:4 7 PM CDT CBC WITH AUTO DIFFERENTIAL STAT 11/20/2023 1:47 PM CDT COMPREHENSIVE METABOLIC PANEL STAT 11/20/2023 1:47 PM CDT XR CHEST 1 VIEW ED 11/20/2023 1:07 PM CDT ECG 12-LEAD STAT 11/20/2023 12:55 PM CDT documented in this encounter Results * Troponin T high-sensitivity 2-hour (11/20/2023 4:04 PM CDT) Trop T hs 10 <=14 ng/L Comment: Interpretive Data For further hscTnT resources including the diagnostic algorithm and an aid in interpretation, copy and paste this link: https://nrl.testcatalog.org/show/hsTrop Current Interpretive Data last revised 2020. Trop T hs delta 1 ng/L [facility] ([place]) Trop T hs interp Insignificant [facility] ([place]) Blood 11/20/2023 4:04 PM CDT 11/20/2023 4:06 PM CDT us Tiago Kerr MD LAB BLOOD ORDERABLES Final Res ult [facility] ([place]) 1 [facility] Department [place] [address] * eGFR (11/20/2023 1:47 PM CDT) eGFR [...] MD LAB BLOOD ORDERABLES Final Res ult [facility] ([place]) 1 [facility] Department [place] [address] * Differential, auto (11/20/2023 1:47 PM CDT) Neutrophil abs 4.0 1.5 - 6.5 K/cumm Imm gran abs 0.0 0.0 - 0.1 K/cumm [facility] ([place]) Lymphocyte abs 1.8 0.8 - 3.3 K/cumm [facility] ([place]) Monocyte abs 0.5 0.2 - 0.8 K/cumm [facility] ([place]) Eosinophil abs 0.1 0.0 - 0.5 K/cumm [facility] ([place]) Basophil abs 0.1 0.0 - 0.1 K/cumm [facility] ([place]) Neutrophil pct 62.1 % [facility] ([place]) Comment: Interpretive Data Percent cell count reference ranges are not reported, since discordance with absolute values may lead to misinterpretation of CBC data. Current Interpretive Data was last revised on 2017. Imm gran pct 0.2 % [facility] ([place]) Comment: Interpretive Data Percent cell count reference ranges are not reported, since discordance with absolute values may lead to misinterpretation of CBC data. Current Interpretive Data was last revised on 2017. Lymphocyte pct 28.4 % [facility] ([place]) Comment: Interpretive Data Percent cell count reference ranges are not reported, since discordance with absolute values may lead to misinterpretation of CBC data. Current Interpretive Data was last revised on 2017. Monocyte pct 7.2 % [facility] ([place]) Comment: Interpretive Data Percent cell count reference ranges are not reported, since discordance with absolute values may lead to misinterpretation of CBC data. Current Interpretive Data was last revised on 2017. Eosinophil pct 1.3 % [facility] ([place]) Comment: Interpretive Data Percent cell count reference ranges are not reported, since discordance with absolute values may lead to misinterpretation of CBC data. Current Interpretive Data was last revised on 2017. Basophil pct 0.8 % [facility] ([place]) Comment: Interpretive Data Percent cell count reference ranges are not reported, since discordance with absolute values may lead to misinterpretation of CBC data. Current Interpretive Data was last revised on 2017. Blood 11/20/2023 1:47 PM CDT 11/20/2023 1:57 PM CDT Tiago Kerr MD LAB BLOOD ORDERABLES Final Res ult Performing Organization Address City/[facility]/ZIP Co de Phone Number [facility] ([place]) 1 [facility] [place] [place] [address] * Troponin T high-sensitivity series (baseline, 2hr, 4hr, 6hr) (11/20/2023 1:47 PM CDT) Trop T hs 9 <=14 ng/L Comment: Interpretive Data For further hscTnT resources including the diagnostic algorithm and an aid in interpretation, copy and paste this link: https://nrl.testcatalog.org/show/hsTrop Current Interpretive Data last revised 2020. Blood 11/20/2023 1:47 PM CDT 11/20/2023 1:57 PM CDT Tiago Kerr MD LAB BLOOD ORDERABLES Final Res ult Performing Organization Address City/[facility]/ZIP Co de Phone Number [facility] ([place]) 1 [facility] [place] [address] * (ABNORMAL) Comprehensive metabolic panel (11/20/2023 1:47 PM CDT) Sodium 140 135 - 145 mmol/L Potassium, pl 4.0 3.3 - 4.9 mmol/L [facility] ([place]) Chloride 103 97 - 110 mmol/L [facility] ([place]) CO2 28 22 - 32 mmol/L [facility] ([place]) Anion gap 9 2 - 15 mmol/L [facility] ([place]) BUN 12 6 - 25 mg/dL [facility] ([place]) Creatinine 0.68 0.60 - 1.10 mg/dL [facility] ([place]) Glucose 66(L) 70 - 199 mg/dL [facility] ([place]) Comment: Interpretive Data Fasting glucose >/= 126 mg/dl is diagnostic for diabetes. ?? Fasting is defined as no caloric intake for at least 8 hours. Fasting glucose between 100 mg/dl to 125 mg/dl is diagnostic of prediabetes. In a patient with classic symptoms of hyperglycemia or hyperglycemic crisis, a random glucose >/= 200 mg/dl is diagnostic for diabetes. In the absence of unequivocal hyperglycemia, results should be confirmed by repeat testing. The classification and Diagnosis of Diabetes Diabetes Care 202; 46: S19-S40. Current interpretive data was last revised 2022. Calcium 9.4 8.5 - 10.3 mg/dL [facility] ([place]) Bilirubin, total 0.4 0.1 - 1.2 mg/dL [facility] ([place]) Protein, pl 6.4(L) 6.5 - 8.5 g/dL [facility] ([place]) Albumin 3.7 3.5 - 5.0 g/dL [facility] ([place]) Alk phos 79 40 - 130 Units/L [facility] ([place]) ALT 9 7 - 45 Units/L [facility] ([place]) AST 17 10 - 45 Units/L [facility] ([place]) Blood 11/20/2023 1:47 PM CDT 11/20/2023 1:57 PM CDT us Tiago Kerr MD LAB BLOOD ORDERABLES Final Res ult [facility] ([place]) 1 [facility] Department [place] [address] * (ABNORMAL) CBC with auto differential (11/20/2023 1:47 PM CDT) WBC 6.4 3.8 - 9.9 K/cumm Hgb 13.0 11.9 - 15.5 g/dL [facility] ([place]) Hct 40.5 35.6 - 45.5 % [facility] ([place]) Plt 218 150 - 400 K/cumm [facility] ([place]) MPV 9.7 9.1 - 12.3 fL [facility] ([place]) RBC 4.83 3.90 - 5.20 M/cumm [facility] ([place]) MCV 83.9 81.3 - 96.4 fL [facility] ([place]) MCH 26.9(L) 27.1 - 33.3 pg [facility] ([place]) MCHC 32.1(L) 32.3 - 35.7 g/dL [facility] ([place]) RDW CV 13.1 11.1 - 14.9 % [facility] ([place]) RDW SD 39.9 35.7 - 48.1 fL [facility] ([place]) NRBC abs 0.00 0.00 - 0.01 K/cumm [facility] ([place]) Blood (Blood, Venous) 11/20/2023 1:47 PM CDT 11/20/2023 1:57 PM CDT Tiago Kerr MD LAB BLOOD ORDERABLES Final Res ult [facility] ([place]) 1 [facility] Department [place] [address] * XR Chest 1 Vw Portable (if patient condition/safety warrant portable) (11/20/2023 1:07 PM CDT) Anatomical Region Laterality Modality Body, Chest N/A Computed Radiogr aphy 11/20/2023 1:38 PM CDT Narrative 11/20/2023 1:39 PM CDT EXAM DESCRIPTION: XR CHEST 1 VIEW REASON FOR STUDY: chest pain ?? Sudden onset of chest pain during argument today ??Alzheimer's ? TECHNIQUE: 1 ??radiographic view(s) of the chest. COMPARISON: 04/21/2019 FINDINGS: LUNGS: ??There is no consolidation or pulmonary edema. ??Minimal atelectasis at the left lung base. ??No pleural effusion or pneumothorax ?? HEART/MEDIASTINUM: ??Normal heart size and cardiomediastinal contours, unchanged. ??There is mild thoracic aortic calcified atherosclerosis. LINES/TUBES: ??None. BONES: ??No acute osseous abnormality. IMPRESSION: No acute cardiopulmonary findings. THIS IS AN ELECTRONICALLY VERIFIED FINAL REPORT 11/20/2023 1:39 PM - Electronically signed by ??Tad De Jesus M.D. MZ: MZ D: ??11/20/2023 1:39 PM T: ??11/20/2023 1:39 PM Report ID: [id number] Reading Location: ??[id number] Procedure Note Tad De Jesus MD - 11/20/2023 EXAM DESCRIPTION: XR CHEST 1 VIEW REASON FOR STUDY: chest pain Sudden onset of chest pain during argument today Alzheimer's TECHNIQUE: 1 radiographic view(s) of the chest. COMPARISON: 04/21/2019 FINDINGS: LUNGS: There is no consolidation or pulmonary edema. Minimal atelectasisat the left lung base. No pleural effusion or pneumothorax HEART/MEDIASTINUM: Normal heart size and cardiomediastinal contours, unchanged. There is mild thoracic aortic calcified atherosclerosis. LINES/TUBES: None. BONES: No acute osseous abnormality. IMPRESSION: No acute cardiopulmonary findings. THIS IS AN ELECTRONICALLY VERIFIED FINAL REPORT 11/20/2023 1:39 PM - Electronically signed by Tad De Jesus M.D. MZ: MZ Report ID: [id number] Reading Location: [id number] Tiago Kerr MD IMG XR PROCEDURES Final Result * ECG 12 lead (11/20/2023 12:55 PM CDT) 11/20/2023 12:5 5 PM CDT Narrative [facility] - 11/20/2023 2:43 PM CDT Vent Rate: 71 bpm RR Interval: 841 msec WY Interval: 156 msec QRS Duration: 89 msec QT Interval: 367 msec QTC Interval: 389 msec P-R-T [place]: 51 - -2 - 31 degrees IMPRESSION: SINUS RHYTHM LOW QRS VOLTAGE IN PRECORDIAL LEADS ??[QRS DEFLECTION < 1.0 mV IN CHEST LEADS] BORDERLINE ECG NO CHANGE FROM PREVIOUS TRACING NOTED Electronically Signed By: Garcia Galicia MD Tiago Kerr MD ECG ORDERABLES Final Result [facility] documented in this encounter Visit Diagnoses Diagnosis Chest pain, unspecified type- Primary Anxiety Anxiety state, unspecified documented in this encounter Active and Recently Administered Medications Times are shown in CDT. Scheduled Medication Order 11/18/2023 11/19/2023 11/20/2023 aspirin chewable tablet 324 mg 324 mg, oral, Once, On Sat11/20/23 at 1302, For 1 dose, Indications: Chest Pain 1303 (Not Given - Pr ovider: Jamel Almanza RN - Reason: Other - Comment: Pt previously taken at home) documented in this encounter Orders Medications Ordered That Kyle ht Not Have Been Administered Count Last Ordered Date First Ordered Date aspirin chewable tablet 324 mg 1 11/20/2023 Lab Orders Without Results Count Last Ordered D ate First Ordered Date POCT GLUCOSE DEVICE 1 11/20/2023 documented in this encounter Care Teams Biodiesel Production Associate Relationship Specialty Start Date End Date Carmelita Olivera MD [address] [facility] [address] [place] [address] PCP - General Family Medicine 09/03/23 Brian Madera MD [address] [facility] [address] [place] [address] Consulting Physician Neurology 04/02/22 documented as of this encounter
--- OUTSIDE RECORDS SUMMARY | 2024-03-31 14:19 | XMS_ITS | Encounter Summary ---
Author Organization [facility] Healthcare Address [address] [place] [address] Care Team Providers Care Finish Machine Tender Name Role Phone Brian Madera MD Unavailable [phone] Carmelita Olivera MD Primary Care Provide r Reason for Referral * Consultation (Routine) - Closed Specialty Diagnoses / Procedures Referred By Contac t Referred To Contact Plastic Surgery Diagnoses Neck mass Carmelita Olivera MD [address] [place] [address] [address] Phone: tel: fax: Calvin Duenas MD [id number] [facility] [id number] [place] [address] Phone: tel: fax: Referral ID Status Reason Start Date Expiration Date V isits Requested Visits Authorized [id number] Closed Specialty Services Required 10/23/2023 11/21/2024 1 1 Question Answer Please select the performing region: [facility] (All Locations) [167] To provider: CALVIN DUENAS [[id number]] # of visits: 1 Comments Julio Cesar ngozi Or other Provider Encounter Details Date Type Department Care Team (Late st Contact Info) Description 10/23/2023 Orders Only [facility] Medical [facility] Primary Care at [place] [address] [facility] [address] [place] [address] Carmelita Olivera MD [address] [facility] [address] [place] [address] Neck mass (Primary Dx) Social History Tobacco Use Types [...] on file Legal Sex Female 8:45 PM FORESTRY BIOLOGY SPECIALIST Gender Identity Female 04/25/2021 2:46 PM FORESTRY BIOLOGY SPECIALIST Sexual Orientation Straight 04/25/2021 2: 46 PM FORESTRY BIOLOGY SPECIALIST documented as of this encounter Plan of Treatment Scheduled Referrals Name Type Priority Associated Diagnoses Order Schedule Ambulatory referral to Plastic Surgery Outpatient Referral Routine Neck mass Expected: 10/23/2023 (Approximate), Expires: 10/22/2024 documented as of this encounter Visit Diagnoses Diagnosis Neck mass- Primary Swelling, mass, or lump in head and neck documented in this encounter Care Teams Finish Machine Tender Relationship Specialty Start Date End Date Carmelita Olivera MD [address] [facility] [address] [place] [address] PCP - General Family Medicine 09/03/23 Brian Madera MD [address] [facility] [place] [address] Consulting Physician Neurology 04/02/22 documented as of this encounter
--- OUTSIDE RECORDS SUMMARY | 2024-03-31 14:19 | XMS_ITS | Encounter Summary ---
Author Organization [facility] Healthcare Address [address] [place] [address] Care Team Providers Care Sparker And Patcher Name Role Phone Brian Madera MD Unavailable [phone] Carmelita Olivera MD Primary Care Provide r Mikala Sheth MA Unavailable [phone] Reason for Visit * Reason Onset Date Comments Care Navigating Officer [facility] 11/21/2023 Encounter Details Date Type Department Care Team (Late st Contact Info) Description 11/21/2023 Telephone [facility] Medical Group Primary Care at [address] [address] Carmelita Olivera MD [address] [place] [address] Care Navigating Officer [facility] Social History Tobacco Use Types Packs/Day Years [...] on file Legal Sex Female 8:45 PM CORPORATE COMMUNICATIONS SPECIALIST Gender Identity Female 04/25/2021 2:46 PM CORPORATE COMMUNICATIONS SPECIALIST Sexual Orientation Straight 04/25/2021 2: 46 PM CORPORATE COMMUNICATIONS SPECIALIST documented as of this encounter Miscellaneous Notes * Telephone Encounter - Delphine Key MA - 11/21/2023 4:39 PM CDT Appt has scheduled for 11/25/23 at 3:30 pm. * Telephone Encounter - Lucy Patel MA - 11/21/2023 3:40 PM CDT Called patient for [facility] follow up from 11/19 ED visit, I was unable to find open appointment for follow up, can you please assist in scheduling follow up within 7 days of her ED visit? Thank you! JENNY Araujo O Care Navigating Officer [phone] documented in this encounter Plan of Treatment Not on file documented as of this encounter Visit Diagnoses Not on filedocumented in this encounter Care Teams Sparker And Patcher Relationship Specialty Start Date End Date Carmelita Olivera MD [address] [facility] [address] [place] [address] PCP - General Family Medicine 09/03/23 Brian Madera MD [address] [facility] [address] [place] [address] Consulting Physician Neurology 04/02/22 Mikala Sheth MA [address] [facility] [address] [place] [address] ACO Care Navigating Officer 11/21/23 11/21/23 documented as of this encounter
--- OUTSIDE RECORDS SUMMARY | 2024-03-31 14:19 | XMS_ITS | Encounter Summary ---
Author Organization [facility] Healthcare Address [address] [place] [address] Care Team Providers Care Treatment Supervisor Name Role Phone Brian Madera MD Unavailable [phone] Carmelita Olivera MD Primary Care Provide r Reason for Visit * Reason Comments Hospital Follow Up 10/20/23 CHARI malcolm s nausea Encounter Details Date Type Department Care Team (Late st Contact Info) Description 10/23/2023 1:30 PM CDT Office Visit [facility] Primary Care at [address] [place] [address] Carmelita Olivera MD [address] [place] [address] [address] [place] [address] Nausea (Primary Dx); Cyst of skin Social History Tobacco Use Types Packs/Day Years [...] on file Legal Sex Female 8:45 PM ACADEMY DIRECTOR Gender Identity Female 04/25/2021 2:46 PM ACADEMY DIRECTOR Sexual Orientation Straight 04/25/2021 2: 46 PM ACADEMY DIRECTOR documented as of this encounter Last Filed Vital Signs Vital Sign Reading Time Taken Comments Blood Pressure 110/70 10/23/2023 1:52 PM CDT Pulse 80 10/23/2023 1:52 PM CDT Temperature - - Respiratory Rate 16 10/23/2023 1:52 PM CDT Oxygen Saturation - - Inhaled Oxygen Concentration - - Weight 56.2 kg (124 lb) 10/23/2023 1:52 PM CDT Height 147.3 cm (4' 10 ) 10/23/2023 1:52 PM CDT Body Mass Index 25.92 10/23/2023 1:52 PM CDT documented in this encounter Patient Instructions * Patient Instructions* Carmelita Olivera MD - 10/23/2023 1:30 PM CDT My medical assistant per diem and I are thankful you have trusted [...] Progress Notes * Carmelita Olivera MD - 10/23/2023 1:30 PM CDT Images from the original note were not included. Subjective/Objective Patient ID: Annita Bose is a 83 y.o. female. Chief Complaint Hospital Follow Up (10/20/23 [facility] weakness nausea) HPI 83 y.o.female coming in for ER follow up for nausea. No vomitting diarrhea constipation urinary symptoms headache fever. She was out of the ativan for 3 days prior to the nauseous episode. She was able to get her ativan refilled. She feels much better now. She mentioned a bump on the left side of the neck that she had in the past. She went to and states they lanced it there. It has returned. She is interested in having someone look at it. Daughter was wondering if she needs a referral to adult day care which I explained she does not need one. Review of Systems Gastrointestinal: Positive for nausea. Negative for diarrhea and vomiting. Genitourinary: Negative for dysuria. Vitals: 10/23/23 1352 BP: 110/70 BP Location: Right arm Patient Position: Sitting Pulse: 80 Resp: 16 Weight: 56.2 kg (124 lb) Height: 147.3 cm (4' 10 ) Admission on 10/20/2023, Discharged on 10/20/2023 Component Date Value WBC 10/20/2023 6.7 Hgb 10/20/2023 13.3 Hct 10/20/2023 41.7 Plt 10/20/2023 234 MPV 10/20/2023 9.5 RBC 10/20/2023 4.97 MCV 10/20/2023 83.9 MCH 10/20/2023 26.8 (L) MCHC 10/20/2023 31.9 (L) RDW CV 10/20/2023 13.2 RDW SD 10/20/2023 40.1 NRBC abs 10/20/2023 0.00 Sodium 10/20/2023 140 Potassium, pl 10/20/2023 4.1 Chloride 10/20/2023 103 CO2 10/20/2023 26 Anion gap 10/20/2023 11 BUN 10/20/2023 17 Creatinine 10/20/2023 0.89 Glucose 10/20/2023 101 Calcium 10/20/2023 9.3 Bilirubin, total 10/20/2023 0.3 Protein, pl 10/20/2023 6.4 (L) Albumin 10/20/2023 3.7 Alk phos 10/20/2023 81 ALT 10/20/2023 12 AST 10/20/2023 21 Neutrophil abs 10/20/2023 3.9 Imm gran abs 10/20/2023 0.0 Lymphocyte abs 10/20/2023 2.3 Monocyte abs 10/20/2023 0.4 Eosinophil abs 10/20/2023 0.1 Basophil abs 10/20/2023 0.0 Neutrophil pct 10/20/2023 57.8 Imm gran pct 10/20/2023 0.2 Lymphocyte pct 10/20/2023 34.6 Monocyte pct 10/20/2023 5.7 Eosinophil pct 10/20/2023 1.2 Basophil pct 10/20/2023 0.5 eGFR 10/20/2023 65 Physical Exam Constitutional: General: She is not in acute distress. Appearance: She is well-developed. HENT: Head: Comments: cyst Neck: Thyroid: No thyromegaly. Cardiovascular: Rate and [...] Diagnoses and all orders for this visit: Nausea (Primary) Assessment & Plan: Resolved Possibly a virus that has resolved Cyst of skin Assessment & Plan: Chronic Worsening Likely a cyst Will refer to plastics for removal Side effects, risks, interactions reviewed with patient. [...] Plan Note - Carmelita Olivera MD - 10/23/2023 2:15 PM CDT Associated Problem(s): Cyst of skin Chronic Worsening Likely a cyst Will refer to plastics for removal * Assessment & Plan Note - Carmelita Olivera MD - 10/23/2023 2:06 PM CDT Associated Problem(s): Nausea Resolved Possibly a virus that has resolved documented in this encounter Plan of Treatment Not on file documented as of this encounter Visit Diagnoses Diagnosis Nausea- Primary Nausea alone Cyst of skin Sebaceous cyst documented in this encounter Care Teams Treatment Supervisor Relationship Specialty Start Date End Date Carmelita Olivera MD [address] [facility] [place] [address] PCP - General Family Medicine 09/03/23 Brian Madera MD [address] [facility] [address] [place] [address] Consulting Physician Neurology 04/02/22 documented as of this encounter
--- OUTSIDE RECORDS SUMMARY | 2024-03-31 14:19 | XMS_ITS | Encounter Summary ---
Author Organization [facility] Healthcare Address [address] [place] [address] Care Team Providers Care Strip Cutter Name Role Phone Brian Madera MD Unavailable [phone] Carmelita Olivera MD Primary Care Provide r Reason for Visit * Reason Onset Date Comments Hospital Follow Up 03/26/2024 Encounter Details Date Type Department Care Team (Late st Contact Info) Description 03/26/2024 Telephone [facility] Primary Care at [address] [place] [address] Carmelita Olivera MD [address] [place] [address] [address] [place] [address] Hospital Follow Up Social History Tobacco Use Types Packs/Day Years Used Date Smoking Tobacco: Never Smokeless Tobacco: Never Alcohol Use Standard Drinks/Week Comments No 0 (1 standard drink = 0.6 oz pur e alcohol) [facility] Utilities Answer Date Recorded In the past 12 months has [employer] electric, gas, oil, or water company threatened to shut off services in your home? No 12/17/2023 Social Connection and Isolat ion Panel [NHANES] Answer Date Recorded Frequency of Communication w ith Friends and Family Not on file 12/17/2023 How often do you get togethe r with friends or relatives? More than three times a week 12/17/2023 How often do you attend [facility] or christianity services? Never 12/17/2023 Do you belong to any clubs o r organizations such as faith groups, unions, fraternal or athletic groups, or [...] time in the past 12 m [facility], were you homeless or living in a residential (including now)? No 12/17/2023 Personal Safety Answer Date Recorded Have you ever been in or are you currently in a harmful physical or emotional relationship or is someone making you feel afraid or unsafe? Denies 11/20/2023 Comments No Sex and Gender Information Value Date Recorded Sex Assigned at Not on file Legal Sex Female 8:45 PM PHOTOGRAPH FINISHER Gender Identity Female 04/25/2021 2:46 PM PHOTOGRAPH FINISHER Sexual Orientation Straight 04/25/2021 2: 46 PM PHOTOGRAPH FINISHER documented as of this encounter Miscellaneous Notes * Telephone Encounter - Delphine Key MA - 03/27/2024 8:22 AM CST Appt has been scheduled. OGRAPH FINISHER * Telephone Encounter - Renetta Mcginnis MA - 03/26/2024 2:32 PM CST This [facility] patient had an ED visit at [facility]- 03/25 - Dementia, Visual hallucinations. PCP appointment was not able to be scheduled at this time. Please call the pt to schedule on or before 04/01 to meet [facility]'s 7 day post ED follow up. Dtr stated can do M-T-W has to work Emilee and Fri Also would like to see if it is Okay for to take Melatonin at night with meds she is taking. OGRAPH FINISHER documented in this encounter Plan of Treatment Not on file documented as of this encounter Visit Diagnoses Not on filedocumented in this encounter Care Teams Strip Cutter Relationship Specialty Start Date End Date Carmelita Olivera MD [address] [facility] [address] [place] [address] PCP - General Family Medicine 09/03/23 Brian Madera MD [address] [facility] [address] [place] [address] Consulting Physician Neurology 04/02/22 documented as of this encounter
--- OUTSIDE RECORDS SUMMARY | 2024-03-31 14:19 | XMS_ITS | Encounter Summary ---
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) 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) Carmelita Olivera MD [address] [facility] [address] [place] [address] Phone: tel: fax: Brian Madera MD [address] [place] [address] [address] [place] [address] Phone: tel: fax: Referral ID Status Reason Start Date Expiration Date V isits Requested Visits Authorized [id number] Closed Specialty Services Required 01/20/2024 01/24/2024 1 1 Question Answer Please select the performing region: [facility] [[id number]] Please select the performing department: [facility] [[id number]] To provider: BRIAN MADERA [[id number]] # of visits: 4 Comments Needs Essence referral from PCP for appointment on 01/22 Encounter Details Date Type Department Care Team (Late st Contact Info) Description 01/20/2024 Orders Only [facility] Primary Care at [address] [place] [id number] Carmelita Olivera MD [address] [place] [address] [address] [place] [address] 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 No 12/17/2023 Social Connection and Isolat ion Panel [NHANES] Answer Date Recorded Frequency of Communication w ith Friends and Family Not on file 12/17/2023 How often do you get togethe r with friends or relatives? More than three times a week 12/17/2023 How often do you attend chur ch or latter day services? Never 12/17/2023 Do you belong to any clubs o r organizations such as zoroastrian groups, unions, fraternal or athletic groups, or [...] any time in the past 12 m [facility], were you homeless or living in a detention (including now)? No 12/17/2023 Personal Safety Answer Date Recorded Have you ever been in or are you currently in a harmful physical or emotional relationship or is someone making you feel afraid or unsafe? Denies 11/20/2023 Comments No Sex and Gender Information Value Date Recorded Sex Assigned at Not on file Legal Sex Female 8:45 PM KETTLEMAN Gender Identity Female 04/25/2021 2:46 PM KETTLEMAN Sexual Orientation Straight 04/25/2021 2: 46 PM KETTLEMAN documented as of this encounter Progress Notes * Rupinder Olsen - 01/20/2024 10:21 AM CDT Needs essence referral from pcp for upcoming appointment. 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)- Primary 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) documented in this encounter Care Teams Manager Of Customer Billing Relationship Specialty Start Date End Date Carmelita Olivera MD [address] [facility] [address] [place] [address] PCP - General Family Medicine 09/03/23 Brian Madera MD [address] [facility] [address] [place] [address] Consulting Physician Neurology 04/02/22 Yuliana Simmons, [address] [place] [address] Radiology Equipment Servicer Top Waddy 12/12/23 02/16/24 documented as of this encounter
--- OUTSIDE RECORDS SUMMARY | 2024-03-31 14:19 | XMS_ITS | Encounter Summary ---
Author Organization [facility] Healthcare Address [address] [place] [address] Care Team Providers Care Window Shade Installer Name Role Phone Brian Madera MD Unavailable [phone] Carmelita Olivera MD Primary Care Provide r Yuliana Simmons [facility] Unavailable [phone] Reason for Visit * Reason Onset Date Comments Symptom Based Call 12/11/2023 Encounter Details Date Type Department Care Team (Late st Contact Info) Description 12/11/2023 Telephone [facility] Medical Group Primary Care at [address] [place] [address] Cayla Joya, VIDEO RECORDER MECHANIC [address] [place] [address] [address] [place] [address] Symptom Based Call Social History Tobacco Use Types Packs/Day Years [...] on file Legal Sex Female 8:45 PM WAFER SLICER Gender Identity Female 04/25/2021 2:46 PM WAFER SLICER Sexual Orientation Straight 04/25/2021 2: 46 PM WAFER SLICER documented as of this encounter Miscellaneous Notes * Telephone Encounter - Delphine Key MA - 12/12/2023 7:40 AM CDT Attempted to contact Annita's daughter Toyin with no answer. LMOM to contact the office back. If Toyin calls back, please relay message from Dr. Maya above: Take Annita to ED for confusion. * Telephone Encounter - Carmelita Olivera MD - 12/11/2023 4:40 PM CDT Go to the er for confusion * Telephone Encounter - Delphine Key MA - 12/11/2023 4:11 PM CDT FYI * Telephone Encounter - Cayla Joya LPN - 12/11/2023 2:36 PM CDT Patient daughter called and left voicemail stating that pt was outside the home confused and statedthat someone was in her house and please were called. Voicemail left and care head girls golf coach will send message for appointment and will have social work referral, Cayla Joya LPN Care Farm Implement Mechanic [facility] Accountable Care Organization [phone] documented in this encounter Plan of Treatment Not on file documented as of this encounter Visit Diagnoses Not on filedocumented in this encounter Care Teams Window Shade Installer Relationship Specialty Start Date End Date Carmelita Olivera MD [address] [facility] [address] [place] [address] PCP - General Family Medicine 09/03/23 Brian Madera MD [address] [facility] [address] [place] [address] Consulting Physician Neurology 04/02/22 Yuliana Simmons, [address] [place] [address] Skiving Machine Operator Rotary Kiln Operator 12/12/23 02/16/24 documented as of this encounter
--- OUTSIDE RECORDS SUMMARY | 2024-03-31 14:19 | XMS_ITS | Encounter Summary ---
Author Organization [facility] Healthcare Address [address] [place] [address] Care Team Providers Care Programmer Numerical Control Name Role Phone Brian Madera MD Unavailable [phone] Carmelita Olivera MD Primary Care Provide r Encounter Details Date Type Department Care Team (Latest Contact Info) Description 11/20/2023 12:34 PM CDT - 11/20/2023 11:59 PM CDT Hospital Encounter [facility] Emergency, Room R Discharge Disposition: Discharge to home or self [...] on file Legal Sex Female 8:45 PM MATHEMATICAL STATISTICIAN Gender Identity Female 04/25/2021 2:46 PM MATHEMATICAL STATISTICIAN Sexual Orientation Straight 04/25/2021 2: 46 PM MATHEMATICAL STATISTICIAN documented as of this encounter Medications at Time of Discharge blood glucose diagnostic stripIndications :Type 2 diabetes mellitus with hyperglycemia, without long-term current use of insulin ([facility]) Use one strip to monitor home blood sugars daily. 100 each 3 11/07/2020 blood-glucose meter kitIndications:T ype 2 diabetes mellitus with hyperglycemia, without long-term current use of insulin ([facility]) 1 Device daily 1 each 10/18/2020 coenzyme Q10 100 mg capsule Take 1 capsule (100 mg total) by mouth daily donepeziL (ARICEPT) 5 mg tablet TAKE 1 TABLET BY MOUTH EVERY DAY AT NIGHT 90 tablet 1 10/09/2023 lancets 31 gauge miscIndications: Type 2 diabetes mellitus with hyperglycemia, without long-term current use of insulin ([facility]) 1 Device daily 100 each 3 10/03/2020 memantine (NAMENDA) 10 mg tablet TAKE 1 TABLET BY MOUTH TWICE A DAY 180 tablet 1 09/12/2023 sodium chloride (TRISTAN 128) 5 % ophthalmic solution Administer 1 drop into both eyes as needed 02/27/2023 amLODIPine (NORVASC) 10 mg tabletIndication s:Hypertension associated with diabetes ([facility]) TAKE 1 TABLET BY MOUTH EVERY DAY AT NIGHT 90 tablet 1 07/29/2023 4 atorvastatin (LIPITOR) 20 mg tabletIndication s:Hyperlipidemia associated with type 2 diabetes mellitus ([facility]) TAKE 1 TABLET BY MOUTH EVERY DAY AT NIGHT 90 tablet 1 07/29/2023 4 lisinopriL (PRINIVIL,ZESTRI L) 2.5 mg tabletIndication s:Type 2 diabetes mellitus with hyperglycemia, without long-term current use of insulin ([facility]),Hypertensi on associated with diabetes ([facility]) Take 1 tablet (2.5 mg total) by [...] Discharge Disposition Disposition Code Departure Means Destination Discharge to home or self care documented in this encounter Plan of Treatment Not on file documented as of this encounter Visit Diagnoses Not on filedocumented in this encounter Care Teams Programmer Numerical Control Relationship Specialty Start Date End Date Carmelita Olivera MD [address] [facility] [address] [place] [address] PCP - General Family Medicine 09/03/23 Brian Madera MD [address] [facility] [address] [place] [address] Consulting Physician Neurology 04/02/22 documented as of this encounter
--- OUTSIDE RECORDS SUMMARY | 2024-03-31 14:19 | XMS_ITS | Encounter Summary ---
Author Organization [facility] Healthcare Address [address] [place] [address] Care Team Providers Care Juvenile Justice Officer Name Role Phone Brian Madera MD Unavailable [phone] Carmelita Olivera MD Primary Care Provide r Mikala Sehth MA Unavailable [phone] Reason for Visit * Reason Comments Successful Phone Call Encounter Details Date Type Department Care Team (Late st Contact Info) Description 11/21/2023 [place] ED Outreach [facility] Accountable Care Organization [address] [place] [address] Lucy Patel MA [address] [place] [address] [address] [place] [address] Social History Tobacco Use Types Packs/Day Years [...] on file Legal Sex Female 8:45 PM SOCIAL WORK ASSISTANT Gender Identity Female 04/25/2021 2:46 PM SOCIAL WORK ASSISTANT Sexual Orientation Straight 04/25/2021 2: 46 PM SOCIAL WORK ASSISTANT documented as of this encounter Progress Notes * uLcy Patel MA - 11/21/2023 3:41 PM CDT Care Sustainability Specialist contacted patient regarding recent ED visit at [facility] on 11/19 for Chest pain . Status of Reason for ED Visit - Better Status Details: - Spoke with patient's daughter, patient is doing well, no chest pain or shortness of breath, no new symptoms, states patient is acting like her normal self today Discharge Instructions Reviewed - Yes Details: - Medication Reconciliation Completed - Yes Details: - ED Follow-Up Appointment - Details: - Message sent to PCP to assist with scheduling Patient educated about same day sick appts at PCP office and when to utilize office vs urgent care vs ED. Pt verbalized understanding of information presented. No additional needs identified at this time. Provided my contact information for future needs. JENNY Araujo [facility] Care Sustainability Specialist [phone] documented in this encounter Plan of Treatment Not on file documented as of this encounter Visit Diagnoses Not on filedocumented in this encounter Care Teams Juvenile Justice Officer Relationship Specialty Start Date End Date Carmelita Olivera MD [address] [facility] [address] [place] [address] PCP - General Family Medicine 09/03/23 Brian Madera MD [address] [facility] [address] [place] [address] Consulting Physician Neurology 04/02/22 Miakla Sheth MA [address] [place] [address] [address] [place] [address] ACO Care Sustainability Specialist 11/21/23 11/21/23 documented as of this encounter
--- OUTSIDE RECORDS SUMMARY | 2024-03-31 14:19 | XMS_ITS | Encounter Summary ---
Author Organization [facility] Healthcare Address [address] [place] [address] Care Team Providers Care Marketing Strategist Name Role Phone Brian Madera MD Unavailable [phone] Carmelita Olivera MD Primary Care Provide r Yuliana Simmons [facility] Unavailable [phone] Reason for Referral * Procedure (Routine) - Pending Review Specialty Diagnoses / Procedures Referred By Jamaal t Referred To Contact Diagnoses Abscess of skin of neck Procedures Incision and Drainage Kristen Vilchis NP [address] [place] [address] Phone: tel: fax: [facility] Medical Group Referral ID Status Reason Start Date Expiration Date V isits Requested Visits Authorized [id number] Pending Review 01/02/2024 01/31/2025 1 1 Reason for Visit * Reason Comments Abscess Knot on the left jose e of her neck that has been there for about 2 years. Its starting to hurt and itch. Encounter Details Date Type Department Care Team (Late st Contact Info) Description 01/02/2024 7:30 PM CDT Office Visit [facility] Medical [facility] Con[facility]ient Care at [address] [place] [id number] Kristen Vilchis, NORMAN [address] [place] [address] Abscess of skin of neck (Primary Dx) Social History Tobacco Use Types Packs/Day Years Used Date Smoking Tobacco: Never Smokeless Tobacco: Never Alcohol Use Standard Drinks/Week Comments No 0 (1 standard drink = 0.6 oz pur e alcohol) [facility] Utilities Answer Date Recorded In [...] often do you attend chur ch or mu-ism services? Never 12/17/2023 Do you belong to any clubs o r organizations such as orthodox groups, unions, fraternal or athletic groups, or [...] any time in the past 12 m [facility], were you homeless or living in a usp (including now)? No 12/17/2023 Personal Safety Answer Date Recorded Have you ever been in or are you currently in a harmful physical or emotional relationship or is someone making you feel afraid or unsafe? Denies 11/20/2023 Comments No Sex and Gender Information Value Date Recorded Sex Assigned at Not on file Legal Sex Female 8:45 PM MAP AND CHART MOUNTER Gender Identity Female 04/25/2021 2:46 PM MAP AND CHART MOUNTER Sexual Orientation Straight 04/25/2021 2: 46 PM MAP AND CHART MOUNTER documented as of this encounter Last Filed Vital Signs Vital Sign Reading Time Taken Comments Blood Pressure 130/70 01/02/2024 5:29 PM CDT Pulse 68 01/02/2024 5:29 PM CDT Temperature 36.8 ??C (98.3 ??F) 01/02/2024 5:29 PM CD T Respiratory Rate 20 01/02/2024 5:29 PM CDT Oxygen Saturation 98% 01/02/2024 5:29 PM CDT Inhaled Oxygen Concentration - - Weight 56.2 kg (124 lb) 01/02/2024 5:29 PM CDT Height 147.3 cm (4' 10 ) 01/02/2024 5:29 PM CDT Body Mass Index 25.92 01/02/2024 5:29 PM CDT documented in this encounter Patient Instructions * Patient Instructions* Kristen Vilchis NP - 01/02/2024 7:30 PM CDT If you have no improvement or worsening of your symptoms, please follow up with your Primary Care Provider, Convenient Care and or Emergency Room. I strive to provide you with EXCELLENT service. You may receive a survey after your visit today. If you cannot rate your experience as EXCELLENT, please let us know how we can improve and better meet your needs. Thank you for choosing [facility]! It was my pleasure to see you today, I hope you feel better soon! If an incision and drainage (I&D) was completed in the office care includes: Wash site with warm soapy water twice a day, may place antibacterial ointment such as triple antibiotic ointment on the site, then dress with a bandage. If the site has packing, it will need to be changed in 2 days. Please follow-up with your provider or return to the clinic in 2 days for a re- evaluation of the I&D site or to have packing removed (if placed). If no I&D was completed: Do not squeeze or open the abscess. Place a warm cloth or soak in warm water 3 to 4 times a day for 20 minutes. If the boil starts to drain please follow the directions above. To stop possible spread of infection please use a clean towel once or use paper towels and throw them away. You may have an antibiotic prescribed- take until complete. You may take Ibuprofen or Tylenol for pain. Follow-up with your primary provider, convenient care, or go to ER if: Symptoms do not improve or become worse in 2-4 days. Such as redness, swelling, drainage, fever, new boils appear, red streaking from site, pain. documented in this encounter Ordered Prescriptions Prescription Sig Dispense Quantity Refills Last Filled Start Date End Date sulfamethoxazole-t rimethoprim (BACTRIM DS) 800-160 mg per tabletIndications: Abscess of skin of neck Take 1 tablet by mouth 2 (two) times a day for 10 days 20 tablet 01/02/2024 01/12/2024 documented in this encounter Progress Notes * Kristen Vilchis NP - 01/02/2024 7:30 PM CDTAssociated Order(s): Incision and Drainage Post-Procedure Diagnose(s): Abscess of skin of neck Images from the original note were not included. Subjective/Objective Patient ID: Annita Bose is a 83 y.o. female. Chief Complaint Abscess (Knot on the left side of her neck that has been there for about 2 years. Its starting to hurt and itch.) Presents to clinic for a lump on the left side of neck for probably a year. Recently noticed it wasgetting bigger & tender a couple days ago. Abscess Review of Systems All systems reviewed and are negative or non contributory for this patient's presentation today other than as stated in the HPI. Physical Exam Vitals reviewed. Constitutional: Appearance: Normal appearance. She is not ill-appearing. HENT: Head: Normocephalic. Mouth/Throat: Pharynx: Oropharynx is clear. Cardiovascular: Rate and Rhythm: Normal rate. Pulmonary: Effort: Pulmonary effort is normal. Breath sounds: Normal breath sounds. Musculoskeletal: General: Normal range of motion. Skin: General: Skin is warm and dry. Findings: Abscess (left side of neck) present. Neurological: Mental Status: She is alert and oriented to person, place, and time. Mental status is at baseline. Psychiatric: Mood and Affect: Mood normal. Behavior: Behavior normal. Thought Content: Thought content normal. Judgment: Judgment normal. Incision and Drainage Performed by: Kristen Vilchis NP Authorized by: Kristen Vilchis NP Consent Given by: Patient and guardian Site marked: the procedure site was marked Timeout: prior to procedure the correct patient, procedure, and site was verified Verbal consent obtained: Yes Written consent obtained: No Risks, alternatives, and patient questions discussed: Yes Type: Abscess Body area: Neck Location details: Left anterior neck Anesthesia: Local infiltration Medications: 1 mL lidocaine (PF) 10 mg/mL (1 %) Scalpel size: 15 Incision type: Single straight Incision depth: Subcutaneous Complexity: Simple Drainage: Purulent Drainage amount: Moderate Wound treatment: Wound left open Packing material: None Patient tolerance: Patient tolerated the procedure well with no immediate complications Vitals: 01/02/24 1729 BP: 130/70 Pulse: 68 Resp: 20 Temp: 36.8 ??C (98.3 ??F) TempSrc: Oral SpO2: 98% Weight: 56.2 kg (124 lb) Height: 147.3 cm (4' 10 ) Assessment/Plan Noticed a referral to Plastic surgeon placed by PCP on 10/22. Daughter w patient to provide history-states they were never called about the referral. I&D done today Instructed to monitor for infection. Diagnoses and all orders for this visit: Abscess of skin of neck (Primary) - Incision and Drainage - sulfamethoxazole-trimethoprim (BACTRIM DS) 800-160 mg per tablet; Take 1 tablet by mouth 2 (two) times a day for 10 days No results found for this or any previous visit (from the past 4 hour(s)). Patient Education: Disposition Treatment plan including expectations, follow up, and return precautions discussed with patient/parent, verbalizes understanding. Medication dosage, use, and potential adverse reactions discussed with patient/parent. Advised to follow up with PCP if symptoms do not resolve as expected or sooner if condition worsens. Signs/symptoms warranting ER evaluation reviewed. Patient and/or guardian was given an opportunity to ask questions, questions answered. Kristen Vilchis NP documented in this encounter Plan of Treatment Not on file documented as of this encounter Procedures Procedure Name Priority Date/Time Associated Diagnosis Comments SC INCISION & DRAINAGE ABSCESS SIMPLE/SINGLE Routine 01/02/2024 7:30 PM CDT Abscess of skin of neck documented in this encounter Results * SC INCISION & DRAINAGE ABSCESS SIMPLE/SINGLE (01/02/2024 7:30 [...] with no immediate complications us Kristen Vilchis PATHOLOGY TECHNOLOGIST IN CLINIC/BEDSIDE ORD ERABLES Final Result documented in this encounter Visit Diagnoses Diagnosis Abscess of skin of neck- Primary documented in this encounter Administered Medications Inactive Administered Medications - up to 3 most recent administrations Medication Order MAR Action Action Date Dose Rate Site lidocaine (PF) (XYLOCAINE) 10 mg/mL (1 %) preservative free injection 1 mL 1 mL, other, One-Time Injection, Starting on Emilee 01/02/24 at 1930, For 1 doseIndications:Abscess of skin of neck Given 01/02/2024 7:30 PM CDT 1 mL Absce ss documented in this encounter Care Teams Marketing Strategist Relationship Specialty Start Date End Date Carmelita Olivera MD [address] [place] [address] PCP - General Family Medicine 09/03/23 Brian Madera MD [address] [place] [address] Consulting Physician Neurology 04/02/22 Yuliana Simmons, [address] [place] [address] Entry Level Manufacturing Engineer Comb Winder 12/12/23 02/16/24 documented as of this encounter
--- OUTSIDE RECORDS SUMMARY | 2024-03-31 14:20 | XMS_ITS | Encounter Summary ---
Author Organization [facility] Healthcare Address [address] [place] [address] Care Team Providers Care Tools Programmer Name Role Phone Brian Madera MD Unavailable [phone] Carmelita Olivera MD Primary Care Provide r Encounter Details Date Type Department Care Team (Late st Contact Info) Description 09/03/2023 Telephone [facility] Medical Group Primary Care at [address] [address] Carmelita Olivera MD [address] [place] [address] Social History Tobacco Use Types Packs/Day Years Used Date Smoking Tobacco: Never Smokeless Tobacco: Never Alcohol Use Standard Drinks/Week Comments No 0 (1 standard drink = 0.6 oz pur e alcohol) AUDIT-C Answer Date Recorded Q1: How often do you have a drink containing alcohol? Never 03/05/2023 Q2: How many drinks containi ng alcohol do you have on a typical day when you are drinking? Patient does not drink Q3: How often do you have si x or more drinks on one occasion? Never 03/05/2023 PHQ-2 Answer Date Recorded PHQ-2 Total Score (If total score is 3 or more points, staff should administer the PHQ-9) 0 09/03/2023 Personal Safety Answer Date Recorded Have you ever been in or are you currently in a harmful physical or emotional relationship or is someone making you feel afraid or unsafe? Denies 06/13/2023 Comments No Sex and Gender Information Value Date Recorded Sex Assigned at Not on file Legal Sex Female 8:45 PM DRY PLASTERER Gender Identity Female 04/25/2021 2:46 PM DRY PLASTERER Sexual Orientation Straight 04/25/2021 2: 46 PM DRY PLASTERER documented as of this encounter Miscellaneous Notes * Telephone Encounter - James Yap MA - 09/03/2023 11:10 AM CDT Spoke with patients daughter Toyin who is on HIPAA. She will relay message to patient * Telephone Encounter - James Yap MA - 09/03/2023 11:08 AM CDT ----- Message from Carmelita Olivera MD sent at 09/03/2023 10:52 AM CDT ----- Can let patient know that her A1c is steady at 6.7. Keep up the good work documented in this encounter Plan of Treatment Not on file documented as of this encounter Visit Diagnoses Not on filedocumented in this encounter Care Teams Tools Programmer Relationship Specialty Start Date End Date Carmelita Olivera MD [address] [place] [address] PCP - General Family Medicine 09/03/23 Brian Madera MD [address] [place] [address] Consulting Physician Neurology 04/02/22 documented as of this encounter
--- OUTSIDE RECORDS SUMMARY | 2024-03-31 14:20 | XMS_ITS | Encounter Summary ---
Author Organization [facility] Healthcare Address [address] [place] [address] Care Team Providers Care Home Therapy Clinician Name Role Phone Brian Madera MD Unavailable [phone] Carmelita Olivera MD Primary Care Provide r Reason for Visit * Reason Comments Hypertension New Pt:here to Est. Care- Former Zbigniew Pt Hyperlipidemia Diabetes Anxiety Alzheimer's Disease Encounter Details Date Type Department Care Team (Late st Contact Info) Description 09/03/2023 9:00 AM CDT Office Visit [facility] Medical Group Primary Care at [address] [address] Carmelita Olivera MD [address] [place] [address] Encounter to establish care (Primary Dx); Hypertension associated with diabetes (HCC); Hyperlipidemia associated with type 2 diabetes mellitus (HCC); Type 2 diabetes mellitus with hyperglycemia, without long-term current use of insulin (CMS/HCC) (HCC) Social History Tobacco Use Types Packs/Day [...] on file Legal Sex Female 8:45 PM MANAGER SHIFT Gender Identity Female 04/25/2021 2:46 PM MANAGER SHIFT Sexual Orientation Straight 04/25/2021 2: 46 PM MANAGER SHIFT documented as of this encounter Last Filed Vital Signs Vital Sign Reading Time Taken Comments Blood Pressure 120/74 09/03/2023 9:00 AM CDT Pulse 68 09/03/2023 9:00 AM CDT Temperature 36.5 ??C (97.7 ??F) 09/03/2023 9:00 AM CD T Respiratory Rate 16 09/03/2023 9:00 AM CDT Oxygen Saturation 99% 09/03/2023 9:00 AM CDT Inhaled Oxygen Concentration - - Weight 56.2 kg (124 lb) 09/03/2023 9:00 AM CDT Height 147.3 cm (4' 10 ) 09/03/2023 9:00 AM CDT Body Mass Index 25.92 09/03/2023 9:00 AM CDT documented in this encounter Patient Instructions * Patient Instructions* Carmelita Olivera MD - 09/03/2023 9:00 AM CDT My expert medical writer and I are thankful you have trusted [...] Progress Notes * Carmelita Olivera MD - 09/03/2023 9:00 AM CDT Images from the original note were not included. Subjective/Objective Patient ID: Annita Bose is a 82 y.o. female. Chief Complaint Hypertension (New Pt:here to Est. Care- Former Zbigniew Pt), Hyperlipidemia, Diabetes, Anxiety, and Alzheimer's Disease HPI 82 y.o.female w/hypertension hyperlipidemia type 2 diabetes anxiety Alzheimer's dementia who is coming in to establish care. Her daughter mentioned some off and on back pain that has been going on for a while. Agreed to just keep an eye on it and if it becomes more frequent she will come and seem me. Otherwise, she is doing well and has no concerns today. Review of Systems Constitutional: Negative for chills and fever. Respiratory: Negative for cough and shortness of breath. Cardiovascular: Negative for chest pain. Gastrointestinal: Negative for abdominal pain. Vitals: 09/03/23 0900 BP: 120/74 BP Location: Right arm Patient Position: Sitting Pulse: 68 Resp: 16 Temp: 36.5 ??C (97.7 ??F) SpO2: 99% Weight: 56.2 kg (124 lb) Height: 147.3 cm (4' 10 ) Office Visit on 09/03/2023 Component Date Value SCRIBED HM DIABETIC DILA* 05/21/2023 Normal Physical Exam Constitutional: General: She is not [...] Diagnoses and all orders for this visit: Encounter to establish care (Primary) Assessment & Plan: Medical hx reviewed and discussed Continue current regimen F/u in 6 months for annual Hypertension associated with diabetes (HCC) Assessment & Plan: Bp in the office today BP Readings from Last 1 Encounters: 09/03/23 120/74 Continue current regimen of amlodipine 10 mg daily lisinopril 2.5 mg daily Recommend DASH diet, heart-healthy lifestyle, exercise. Discussed the risks of hypertension. F/u in 6 months Hyperlipidemia associated with type 2 diabetes mellitus (HCC) Assessment & Plan: LDL goal of less than 100, continue current prescription medications, atorvastatin. Type 2 diabetes mellitus with hyperglycemia, without long-term current use of insulin ([facility]/HCC) (HCC) Assessment & Plan: The patient was counseled on a heart-healthy, [...] A1c ordered today F/u in 6 months Orders: - Hemoglobin A1c; Future Side effects, risks, interactions reviewed with patient. [...] Plan Note - Carmelita Olivera MD - 09/03/2023 9:28 AM CDT Associated Problem(s): Encounter to establish care Medical hx reviewed and discussed Continue current regimen F/u in 6 months for annual * Assessment & Plan Note - Carmelita Olivera MD - 09/02/2023 12:27 PM CDTAssociated Problem(s): Type 2 diabetes mellitus with hyperglycemia, without long-term current use of insulin ([facility]) The patient was counseled on a heart-healthy, [...] A1c ordered today F/u in 6 months * Assessment & Plan Note - Carmelita Olivera MD - 09/02/2023 12:26 PM CDTAssociated Problem(s): Hyperlipidemia associated with type 2 diabetes mellitus (HCC) LDL goal of less than 100, continue current prescription medications, atorvastatin. * Assessment & Plan Note - Carmelita Olivera MD - 09/02/2023 12:26 PM CDTAssociated Problem(s): Hypertension associated with diabetes (HCC) Bp in the office today BP Readings from Last 1 Encounters: 09/03/23 120/74 Continue current regimen of amlodipine 10 mg daily lisinopril 2.5 mg daily Recommend DASH diet, heart-healthy lifestyle, exercise. Discussed the risks of hypertension. F/u in 6 months documented in this encounter Plan of Treatment Not on file documented as of this encounter Procedures Procedure Name Priority Date/Time Associated Diagnosis Comments DIABETES EYE EXAM Routine 05/21/2023 documented in this encounter Results * (ABNORMAL) Hemoglobin A1c (09/03/2023 9:42 AM CDT) Hgb A1C 6.7(H) 4.0 - 5.6 % Estimated Average Glucose 146 mg/dL JOSE MARCELINO (JANE) Comment: The ADA recommends reporting an estimated Average Glucose (eAG) with all Hemoglobin A1c results using the equation derived from a study of 507 normal and diabetic adults. ??Minority populations were underrepresented and children were not included. ?? (Diabetes Care 31:9456-6051, 2008). ??The eAG is not equivalent to a fasting glucose. Blood 09/03/2023 9:42 AM CDT 09/03/2023 10:23 AM CDT Carmelita Olivera MD LAB BLOOD ORDERABLES Final Result JOSE MARCELINO (JANE) [address] [facility] Department [place] [address] * DIABETES EYE EXAM (05/21/2023) SCRIBED DIABETIC DILATED EYE EXAM Normal Historical Provider HEALTH MAINTENANCE Final Result documented in this encounter Visit Diagnoses Diagnosis Encounter to establish care- Primary Hypertension associated with diabetes (HCC) Unspecified essential hypertension Hyperlipidemia associated with type 2 diabetes mellitus (HCC) Type 2 diabetes mellitus with hyperglycemia, without long-term current use of insulin (HCC) documented in this encounter Care Teams Home Therapy Clinician Relationship Specialty Start Date End Date Carmelita Olivera MD [address] [place] [address] PCP - General Family Medicine 09/03/23 Brian Madera MD [address] [place] [address] Consulting Physician Neurology 04/02/22 documented as of this encounter
--- OUTSIDE RECORDS SUMMARY | 2024-03-31 14:20 | XMS_ITS | Encounter Summary ---
Author Organization [facility] Healthcare Address [address] [place] [address] Care Team Providers Care Charge Attendant Name Role Phone Brian Madera MD Unavailable [phone] Carmelita Olivera MD Primary Care Provide r Reason for Visit * Reason Onset Date Comments Referral Request 09/12/2023 Encounter Details Date Type Department Care Team (Late st Contact Info) Description 09/12/2023 Telephone [facility] Medical Group Primary Care at [address] [place] [address] Carmelita Olivera MD [address] [place] [address] [address] [place] [address] Referral Request Social History Tobacco Use Types Packs/Day Years [...] on file Legal Sex Female 8:45 PM REGISTERED PHLEBOTOMIST PART TIME Gender Identity Female 04/25/2021 2:46 PM REGISTERED PHLEBOTOMIST PART TIME Sexual Orientation Straight 04/25/2021 2: 46 PM REGISTERED PHLEBOTOMIST PART TIME documented as of this encounter Miscellaneous Notes * Telephone Encounter - Ivette Davenport - 09/12/2023 11:21 AM CDT Spoke with Megan from [facility] and informed her that is still on pts [employer] account and I will not be able to process this referral request until that has changed. Megan stated that the pts daughter is currently on the phone with [employer] trying to get it changed. I told them that once that has been completed I can call and get a referral manually entered and if need be I will b ack date it. No questions or concerns at this time. * Telephone Encounter - Gabrielle Rivera MA - 09/12/2023 9:17 AM CDT Referral Provider Name (if patient is seeing a nurse practitioner or physician ward assistant, list the TOGGLE PRESS OPERATOR/PA, but also their collaborating doctor): Arya Fernández Specialty: Optometrists Address: [address] [place] [address], Zip: [place] [address] Diagnosis Code/Symptom/Reason Patient is being seen: eye exam Date of Appointment: 09/12/23 NPI#: [id number] Tax ID#: [id number] Is insurance in chart up to date? Yes Additional Comments: Patient is at the eye office now. CS will send over as HP. Does message need to be routed? Yes-Action Needed documented in this encounter Plan of Treatment Not on file documented as of this encounter Visit Diagnoses Not on filedocumented in this encounter Care Teams Charge Attendant Relationship Specialty Start Date End Date Carmelita Olivera MD [address] [place] [address] PCP - General Family Medicine 09/03/23 Brian Madera MD [address] [place] [address] Consulting Physician Neurology 04/02/22 documented as of this encounter
--- OUTSIDE RECORDS SUMMARY | 2024-03-31 14:20 | XMS_ITS | Encounter Summary ---
Author Organization [facility] Healthcare Address [address] [place] [address] Care Team Providers Care Grease Renderer Name Role Phone Brian Madera MD Unavailable [phone] Carmelita Olivera MD Primary Care Provide r Reason for Referral * Consultation (Routine) - Closed Specialty Diagnoses / Procedures Referred By Contac t Referred To Contact Ophthalmology Diagnoses Diabetic eye exam (CMS/HCC) (HCC) Carmelita Olivera MD [address] [place] [address] [address] [place] [phone] Phone: tel: fax: External Order Referral ID Status Reason Start Date Expiration Date V isits Requested Visits Authorized [id number] Closed Specialty Services Required 09/05/2023 10/04/2024 1 1 Question Answer Please select the performing region: External Order [[id number]] # of visits: 1 Comments [facility] location (P) [phone] (F) [phone]. Encounter Details Date Type Department Care Team (Late st Contact Info) Description 09/05/2023 Orders Only [facility] Primary Care at [address] [place] [phone] Carmelita Olivera MD [address] [place] [address] [address] [place] [phone] Diabetic eye exam ([facility]) ([facility]) (Primary Dx) Social History Tobacco Use Types [...] on file Legal Sex Female 8:45 PM COORDINATOR OF PLACEMENT Gender Identity Female 04/25/2021 2:46 PM COORDINATOR OF PLACEMENT Sexual Orientation Straight 04/25/2021 2: 46 PM COORDINATOR OF PLACEMENT documented as of this encounter Plan of Treatment Scheduled Referrals Name Type Priority Associated Diagnoses Order Schedule Ambulatory referral to Ophthalmology Outpatient Referral Routine Diabetic eye exam ([facility]) ([facility]) Expected: 09/05/2023 (Approximate), Expires: 09/04/2024 documented as of this encounter Visit Diagnoses Diagnosis Diabetic eye exam ([facility]) ([facility])- Primary Examination of eyes and vision documented in this encounter Care Teams Grease Renderer Relationship Specialty Start Date End Date Carmelita Olivera MD [address] [facility] [address] [place] [address] PCP - General Family Medicine 09/03/23 Brian Madera MD [address] [facility] [address] [place] [address] Consulting Physician Neurology 04/02/22 documented as of this encounter
--- OUTSIDE RECORDS SUMMARY | 2024-03-31 14:20 | XMS_ITS | Encounter Summary ---
Author Organization 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) Jocelynn Coy DO Phone: tel: fax: Brian Madera MD [address] [place] [address] [address] Phone: tel: fax: Referral ID Status Reason Start Date Expiration Date V isits Requested Visits Authorized [id number] Closed Specialty Services Required 07/12/2023 08/13/2023 1 1 Question Answer Please select the performing region: [facility] [[id number]] Please select the performing department: [facility] [[id number]] To provider: BRIAN MADERA [[id number]] # of visits: 1 Encounter Details Date Type Department Care Team (Late st Contact Info) Description 07/11/2023 Orders Only [facility] Primary Care at [address] [place] [address] Jocelynn Coy DO [address] [facility] [address] [place] [id number] 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 05/01/2023 05/03/2023 07/30/2023 3:06 AM C DT documented as of this encounter Care Teams Manufacturing Millwright Relationship Specialty Start Date End Date Jocelynn Coy DO PCP - General Family Medicine 06/10/17 09/02/23 Brian Madera MD [address] [facility] [address] [place] [address] [address] Consulting Physician Neurology 04/02/22 documented as of this encounter
--- OUTSIDE RECORDS SUMMARY | 2024-03-31 14:20 | XMS_ITS | Encounter Summary ---
Author Organization [facility] Address [address] [place] [address] Care Team Providers Care Parts Clerk Plant Maintenance Name Role Phone Jocelynn Coy Primary Care Provider [phone]- [phone] Brian Madera MD Unavailable Reason for Visit * Reason Comments Hallucinations Urinary Problem Encounter Details Date Type Department Care Team (Late st Contact Info) Description 06/13/2023 5:28 PM PIG MACHINE SUPERVISOR - 06/13/2023 8:15 PM PIG MACHINE SUPERVISOR Emergency [facility] Emergency Department [address] [place] [address] Dodie Mckenzie MD [address] [place] [address] [place] [address] Hallucinations (Primary Dx) Discharge Disposition: Discharge to home or self [...] points, staff should administer the PHQ-9) 0 04/25/2023 Personal Safety Answer Date Recorded Have you ever been in or are you currently in a harmful physical or emotional relationship or is someone making you feel afraid or unsafe? Denies 06/13/2023 Comments No Sex and Gender Information Value Date Recorded Sex Assigned at Not on file Legal Sex Female 8:45 PM PIG MACHINE SUPERVISOR Gender Identity Female 04/25/2021 2:46 PM PIG MACHINE SUPERVISOR Sexual Orientation Straight 04/25/2021 2: 46 PM PIG MACHINE SUPERVISOR documented as of this encounter Last Filed Vital Signs Vital Sign Reading Time Taken Comments Blood Pressure 111/64 06/13/2023 5:21 PM PIG MACHINE SUPERVISOR Pulse 63 06/13/2023 5:21 PM PIG MACHINE SUPERVISOR Temperature 37 ??C (98.6 ??F) 06/13/2023 5:21 PM PIG MACHINE SUPERVISOR Respiratory Rate 18 06/13/2023 8:13 PM PIG MACHINE SUPERVISOR Oxygen Saturation 100% 06/13/2023 5:21 PM PIG MACHINE SUPERVISOR Inhaled Oxygen Concentration - - Weight 54.4 kg (120 lb) 06/13/2023 5:21 PM PIG MACHINE SUPERVISOR Height 152.4 cm (5') 06/13/2023 5:21 PM PIG MACHINE SUPERVISOR Body Mass Index 23.44 06/13/2023 5:21 PM PIG MACHINE SUPERVISOR documented in this encounter Discharge Instructions * Discharge Instructions* Dodie Mckenzie MD - 06/13/2023 7:30 PM PIG MACHINE SUPERVISOR Your head CT showed no acute findings. Your urinalysis did not indicate infection. Your lab work was otherwise normal. Please call your primary care doctor in the morning for possible referral to Psychiatry for follow-up with the hallucinations. Return if worse or as needed. MACHINE SUPERVISOR * Attachments The following attachments cannot be sent through Care Everywhere. * Hallucinations (AfterCare(R) Instructions(ER/ED)) (Norwegian) documented in this encounter Medications at Time of Discharge blood glucose diagnostic stripIndications :Type 2 diabetes mellitus with hyperglycemia, without long-term current use of insulin (HCC) Use one strip to monitor home blood sugars daily. 100 each 3 11/07/2020 blood-glucose meter kitIndications:T ype 2 diabetes mellitus with hyperglycemia, without long-term current use of insulin (HCC) 1 Device daily 1 each 10/18/2020 coenzyme Q10 100 mg capsule Take 1 capsule (100 mg total) by mouth daily lancets 31 gauge miscIndications: Type 2 diabetes mellitus with hyperglycemia, without long-term current use of insulin ([facility]) 1 Device daily 100 each 3 10/03/2020 sodium chloride (TRISTAN 128) 5 % ophthalmic solution Administer 1 drop into both eyes as needed 02/27/2023 amLODIPine (NORVASC) 10 mg tabletIndication s:Hypertension associated with diabetes ([facility]) Take 1 tablet (10 mg total) by mouth nightly 90 tablet 3 09/20/2022 4 atorvastatin (LIPITOR) 20 mg tabletIndication s:Hyperlipidemia associated with type 2 diabetes mellitus ([facility]) Take 1 tablet (20 mg total) by mouth nightly 90 tablet 3 09/20/2022 4 lisinopriL (PRINIVIL,ZESTRI L) 2.5 mg tabletIndication s:Type 2 diabetes mellitus with hyperglycemia, without long-term current use of insulin ([facility]),Hypertensi on associated with diabetes ([facility]) Take 1 tablet (2.5 mg total) by mouth daily 90 tablet 3 09/20/2022 4 LORazepam (ATIVAN) 0.5 mg tabletIndication s:Generalized anxiety disorder Take 1 tablet (0.5 mg total) by mouth as needed for anxiety 30 tablet 5 03/05/2023 4 memantine (NAMENDA) 10 mg tablet TAKE 1 TABLET BY MOUTH TWICE DAILY 180 tablet 1 05/03/2023 4 metFORMIN XR (GLUCOPHAGE XR) 500 mg 24 hr tabletIndication s:Type 2 diabetes mellitus with hyperglycemia, without long-term current use of insulin ([facility]) Take 1 tablet (500 mg total) by mouth daily with breakfast 90 tablet 3 09/20/2022 4 omega-3 fatty acids 1,000 mg capsule Take by mouth 4 traZODone (DESYREL) 50 mg tabletIndication s:insomnia associated with depression Take 1 tablet (50 mg total) by mouth nightly 5 tablet 04/21/2023 4 documented as of this encounter Discharge Disposition Disposition Code Departure Means Destination Comment s Discharge to home or self care documented in this encounter ED Notes * Dodie Mckenzie MD - 06/13/2023 6:15 PM CST HPI Chief Complaint Patient presents with Hallucinations Urinary Problem 82-year-old female with a history of HTN, HLD, DM, and AD dementia presents to the ED hallucinations. Per family, pt began to have hallucinations six days ago and a smelly odor in her urine three days ago. Pt denies any pain, fever, chills, diarrhea, vomiting, and headaches. Per family, pt sees children passing by her or herself holding a baby. Pt also sometimes gets agitated. Family was told by her doctor to visit the ED for a UTI check. Per family, pt has been eating normally and denies any falling incident. History provided by: Patient and relative Mental Health Problem Presenting symptoms: agitation and hallucinations Patient accompanied by: Family member Duration: 6 days Associated symptoms: no abdominal pain, no appetite change, no chest pain and no headaches History reviewed. No pertinent past medical history. Past Surgical History: Procedure Laterality Date CATARACT EXTRACTION Bilateral 09/07/2021 09/22/2021 FL FLUORO GUIDED LUMBAR PUNCTURE Right 01/17/2022 Family History Problem Relation Age of Onset Stomach cancer Sister Social History Tobacco Use Smoking status: Never Smokeless tobacco: Never Substance and Sexual Activity Drug use: No Sexual activity: None Alcohol Use: Not At Risk (03/05/2023) AUDIT-C Frequency of Alcohol Consumption: Never Average Number of Drinks: Patient does not drink Frequency of Binge Drinking: Never Review of Systems Review of Systems Constitutional: Negative for appetite change, chills and fever. HENT: Negative for ear pain and sore throat. Eyes: Negative for pain and visual disturbance. Respiratory: Negative for cough and shortness of breath. Cardiovascular: Negative for chest pain and palpitations. Gastrointestinal: Negative for abdominal pain, diarrhea and vomiting. Genitourinary: Negative for dysuria and hematuria. Urine smelly odor Musculoskeletal: Negative for arthralgias and back pain. Skin: Negative for color change and rash. Neurological: Negative for seizures, syncope and headaches. Psychiatric/Behavioral: Positive for agitation and hallucinations. All other systems reviewed and are negative. Physical Exam ED Triage Vitals [06/13/23 1721] Temp Pulse Resp BP SpO2 37 ??C (98.6 ??F) 63 16 111/64 100 % Temp src Heart Rate Source Patient Position BP Location FiO2 (%) Temporal -- -- -- -- Height Height Method Weight Weight Method 1.524 m (5') Stated 54.4 kg (120 lb) -- Physical Exam Vitals and nursing note reviewed. Constitutional: Appearance: Normal appearance. Comments: Missing teeth HENT: Head: Normocephalic and atraumatic. Right Ear: External ear normal. Left Ear: External ear normal. Nose: Nose normal. Mouth/Throat: Mouth: Mucous membranes are moist. Pharynx: Oropharynx is clear. Eyes: Extraocular Movements: Extraocular movements intact. Pupils: Pupils are equal, round, and reactive to light. Cardiovascular: Rate and Rhythm: Normal rate and regular rhythm. Pulses: Normal pulses. Heart sounds: Normal heart sounds. Pulmonary: Effort: Pulmonary effort is normal. No respiratory distress. Breath sounds: Normal breath sounds. Abdominal: General: Abdomen is flat. There is no distension. Palpations: Abdomen is soft. Tenderness: There is no abdominal tenderness. Musculoskeletal: General: No swelling or tenderness. Normal range of motion. Cervical back: Normal range of motion and neck supple. Skin: General: Skin is warm and dry. Capillary Refill: Capillary refill takes less than 2 seconds. Neurological: General: No focal deficit present. Mental Status: She is alert. Cranial Nerves: No cranial nerve deficit. Sensory: No sensory deficit. Motor: No weakness. Coordination: Coordination normal. Gait: Gait normal. Deep Tendon Reflexes: Reflexes normal. Psychiatric: Mood and Affect: Mood normal. Procedures Labs Reviewed URINALYSIS AND REFLEX TO MICROSCOPIC AND CULTURE - Abnormal Result Value Color, ur Yellow Clarity, ur Clear Specific gravity, ur 1.021 pH, urine 5.5 Protein, ur ql Trace Glucose, ur ql Trace (*) Ketones, ur Negative Bilirubin, ur Negative Blood, ur Negative Urobilinogen, ur <2.0 Nitrite, ur Negative Leukocyte esterase, ur Negative UA reflex comment Value: Reflex conditions for microscopic UA and culture not met. CBC WITH AUTO DIFFERENTIAL - Abnormal WBC 6.5 Hgb 13.3 Hct 41.5 Plt 276 MPV 9.9 RBC 4.97 MCV 83.5 MCH 26.8 (*) MCHC 32.0 (*) RDW CV 13.6 RDW SD 41.7 NRBC abs 0.00 COMPREHENSIVE METABOLIC PANEL Sodium 138 Potassium, pl 4.6 Chloride 101 CO2 26 Anion gap 11 BUN 15 Creatinine 0.81 Glucose 92 Calcium 9.6 Bilirubin, total 0.3 Protein, pl 6.9 Albumin 4.0 Alk phos 85 ALT 14 AST 19 DIFFERENTIAL AUTO Neutrophil abs 3.1 Imm gran abs 0.0 Lymphocyte abs 2.7 Monocyte abs 0.5 Eosinophil abs 0.2 Basophil abs 0.0 Neutrophil pct 47.5 Imm gran pct 0.2 Lymphocyte pct 41.4 Monocyte pct 7.7 Eosinophil pct 2.6 Basophil pct 0.[address] Head WO Contrast Final Result BP 111/64 Pulse 63 Temp 37 ??C (98.6 ??F) (Temporal) Resp 16 Ht 152.4 cm (5') Wt 54.4 kg (120 lb) SpO2 100% BMI 23.44 kg/m?? Medical Decision Making Patient will be evaluated for UTI, intracranial abnormality, dehydration, anemia, electrolyte abnormality. Amount and/or Complexity of Data Reviewed Labs: ordered. Details: UA does not show signs of infection, CBC within normal limits, CMP within normal limits Radiology: ordered. Details: CT head: No acute intracranial findings. ED Course as of 06/13/231930 Time: 1930 Comment: No hallucinations noted here in the ER. Patient is in a good mood. By: Dodie Mckenzie MD 82-year-old female with visual hallucinations over the past few days. No other complaints. Patient was sent by PCP to evaluate for urinary tract infection. Patient does have a history of dementia. Labs today are benign, urinalysis does not show infection and head CT has no acute findings. Symptoms may be due to dementia. Patient can call her primary care physician for referral to Psychiatry for possible medication adjustment dealing with hallucinations. On discussion with daughter, hallucinations are benign and the patient is aware that she is seeing things. They are not putting her in danger at this time. 7:29 PM Rechecked the patient- The patient is resting comfortably and feeling better. I discussed the results of the diagnostic studies, my clinical impression, and the plan for further treatment with the patient. The patient agrees with the plan and discharge at this time, all questions addressed. The patient is medically stable for discharge at this time. I have given the patient instructions regarding his diagnosis, expectations, follow up, and return precautions. I explained to the patient that emergent conditions may arise and to return to the ER for new, worsening, or any persistent conditions. I've explained the importance of following up with h is/her Primary Care Physician- (or the referral physician listed below) as instructed. The patient verbalized understanding of the discharge instructions. New medications: New Prescriptions No medications on file I have advised the patient to follow up with the information as noted below Contact Information for Follow-ups Jocelynn Coy DO Specialty: Family Medicine [address] [place] [address] [place] [address] Next Steps: Call in 1 day(s) Instructions: For follow-up as needed Disposition: Discharged Final diagnoses: Hallucinations This note is prepared by Krzysztof Raymundo, acting as a scribe for Dodie Mckenzie MD. I electronically signed this note at 7:31 PM on 06/13/2023. I, Dodie Mckenzie MD, have personally performed the services described in the documentation, reviewed and edited the documentation which was dictated to the scribe in my presence, and it accurately records my words and actions. Krzysztof Raymundo 06/13/239 Dodie Mckenzie MD 06/13/231932 MACHINE SUPERVISOR * Vijaya Saleem RN - 06/13/2023 5:19 PM CST Pt to ED with daughter for c/o hallucinations and an odor to her urine since Saturday. Pt has been seeing kids that aren't there per daughter. Pt has hx of dementia per daughter. MACHINE SUPERVISOR documented in this encounter Plan of Treatment Not on file documented as of this encounter Procedures Procedure Name Priority Date/Time Associated Diagnosis Comments EGFR STAT 06/13/2023 6:34 PM PIG MACHINE SUPERVISOR DIFFERENTIAL AUTO STAT 06/13/2023 6:3 4 PM PIG MACHINE SUPERVISOR CBC WITH AUTO DIFFERENTIAL STAT 06/13/2023 6:34 PM PIG MACHINE SUPERVISOR COMPREHENSIVE METABOLIC PANEL STAT 06/13/2023 6:34 [address] HEAD WO CONTRAST ED 06/13/2023 6 :04 PM PIG MACHINE SUPERVISOR URINALYSIS AND REFLEX TO MICROSCOPIC AND CULTURE STAT 06/13/2023 5:41 PM PIG MACHINE SUPERVISOR documented in this encounter Results * eGFR (06/13/2023 6:34 PM PIG MACHINE SUPERVISOR) eGFR 73 mL/min/1. 73 m2 [facility] ([place]) Comment: Interpretive Data Reference Interval Normal ?>/= [...] interpretive data was last reviewed 2021. Blood 06/13/2023 6:34 PM PIG MACHINE SUPERVISOR 06/13/2023 6:37 PM PIG MACHINE SUPERVISOR us Dodie Mckenzie MD LAB BLOOD ORDERABLES Final Resul t [facility] ([place]) [facility] [place] [address] * Differential, auto (06/13/2023 6:34 PM PIG MACHINE SUPERVISOR) Neutrophil abs 3.1 1.5 - 6.5 K/cumm [facility] ([place]) Imm gran abs 0.0 0.0 - 0.1 K/cumm [facility] ([place]) Lymphocyte abs 2.7 0.8 - 3.3 K/cumm [facility] ([place]) Monocyte abs 0.5 0.2 - 0.8 K/cumm [facility] ([place]) Eosinophil abs 0.2 0.0 - 0.5 K/cumm [facility] ([place]) Basophil abs 0.0 0.0 - 0.1 K/cumm [facility] ([place]) Neutrophil pct 47.5 % [facility] ([place]) Comment: Interpretive [...] was last revised on 2017. Lymphocyte pct 41.4 % [facility] ([place]) Comment: Interpretive Data Percent cell count reference ranges are not reported, since discordance with absolute values may lead to misinterpretation of CBC data. Current Interpretive Data was last revised on 2017. Monocyte pct 7.7 % [facility] ([place]) Comment: Interpretive Data Percent cell count reference ranges are not reported, since discordance with absolute values may lead to misinterpretation of CBC data. Current Interpretive Data was last revised on 2017. Eosinophil pct 2.6 % [facility] ([place]) Comment: Interpretive Data Percent cell count reference ranges are not reported, since discordance with absolute values may lead to misinterpretation of CBC data. Current Interpretive Data was last revised on 2017. Basophil pct 0.6 % [facility] ([place]) Comment: Interpretive Data Percent cell count reference ranges are not reported, since discordance with absolute values may lead to misinterpretation of CBC data. Current Interpretive Data was last revised on 2017. Blood 06/13/2023 6:34 PM PIG MACHINE SUPERVISOR 06/13/2023 6:37 PM PIG MACHINE SUPERVISOR us Dodie Mckenzie MD LAB BLOOD ORDERABLES Final Resul t [facility] ([place]) [facility] [place] [address] * Comprehensive metabolic panel (06/13/2023 6:34 PM PIG MACHINE SUPERVISOR) Sodium 138 135 - 145 mmol/L [facility] ([place]) Potassium, pl 4.6 3.3 - 4.9 mmol/L [facility] ([place]) Chloride 101 97 - 110 mmol/L [facility] ([place]) CO2 26 22 - 32 mmol/L [facility] ([place]) Anion gap 11 2 - 15 mmol/L [facility] ([place]) BUN 15 6 - 25 mg/dL [facility] ([place]) Creatinine 0.81 0.60 - 1.10 mg/dL [facility] ([place]) Glucose 92 70 - 199 mg/dL [facility] ([place]) [...] interpretive data was last revised 2022. Calcium 9.6 8.5 - 10.3 mg/dL [facility] ([place]) Bilirubin, total 0.3 0.1 - 1.2 mg/dL [facility] ([place]) Protein, pl 6.9 6.5 - 8.5 g/dL [facility] ([place]) Albumin 4.0 3.5 - 5.0 g/dL [facility] ([place]) Alk phos 85 40 - 130 Units/L [facility] ([place]) ALT 14 7 - 45 Units/L [facility] ([place]) AST 19 10 - 45 Units/L [facility] ([place]) Blood 06/13/2023 6:34 PM PIG MACHINE SUPERVISOR 06/13/2023 6:37 PM PIG MACHINE SUPERVISOR us Dodie Mckenzie MD LAB BLOOD ORDERABLES Final Resul t [facility] ([place]) [facility] [place] [address] * (ABNORMAL) CBC with auto differential (06/13/2023 6:34 PM PIG MACHINE SUPERVISOR) WBC 6.5 3.8 - 9.9 K/cumm [facility] ([place]) Hgb 13.3 11.9 - 15.5 g/dL [facility] ([place]) Hct 41.5 35.6 - 45.5 % [facility] ([place]) Plt 276 150 - 400 K/cumm [facility] ([place]) MPV 9.9 9.1 - 12.3 fL [facility] ([place]) RBC 4.97 3.90 - 5.20 M/cumm [facility] ([place]) MCV 83.5 81.3 - 96.4 fL [facility] ([place]) MCH 26.8(L) 27.1 - 33.3 pg [facility] ([place]) MCHC 32.0(L) 32.3 - 35.7 g/dL [facility] ([place]) RDW CV 13.6 11.1 - 14.9 % [facility] ([place]) RDW SD 41.7 35.7 - 48.1 fL [facility] ([place]) NRBC abs 0.00 0.00 - 0.01 K/cumm [facility] ([place]) Blood 06/13/2023 6:34 PM PIG MACHINE SUPERVISOR 06/13/2023 6:37 PM PIG MACHINE SUPERVISOR us Dodie Mckenzie MD LAB BLOOD ORDERABLES Final Resul t [facility] ([place]) [facility] [place] [address] * CT Head WO Contrast (06/13/2023 6:04 PM PIG MACHINE SUPERVISOR) Anatomical Region Laterality Modality Head and Neck N/A Computed Tomogra phy 06/13/2023 6:11 PM PIG MACHINE SUPERVISOR Narrative 06/13/2023 6:15 PM PIG MACHINE SUPERVISOR EXAM DESCRIPTION: CT HEAD WO CONTRAST REASON FOR STUDY: Mental status change, unknown cause ?? Pt to ED with daughter for c/o hallucinations and an odor to her urine since Saturday. Pt has been seeing kids that aren't there per daughter. Pt has hx of dementia per daughter. ? TECHNIQUE: Axial images acquired through the brain without intravenous contrast. ??Images stored on PACS. ?? Automated exposure control was used as a dose optimization technique for this examination. COMPARISON: MR brain dated 01/03/2022. FINDINGS: BRAIN: ?? There is stable mild volume loss. ??There are hvjv-pj-vaspopmm patchy areas of hypodensity in the periventricular, subcortical and deep white matter as evidence for chronic microvascular angiopathy which may have progressed in the interval compared to abnormal T2/FLAIR signal on prior MRI. ?No regional hypodensity is evident. ?No evidence of intracranial hemorrhage. EXTRA-AXIAL SPACES: ?? No fluid collections. No mass effect. CALVARIUM: ?? Appears intact. SINUSES/MASTOIDS: ?? Visualized portions are clear. ORBITS: ?? Status post bilateral lens extractions. OTHER: ?? No other significant abnormality. IMPRESSION: No acute intracranial findings. THIS IS AN ELECTRONICALLY VERIFIED FINAL REPORT 06/13/2023 6:15 PM - Electronically signed by ??Brian Martinez M.D., D.O. Brian Martinez M.D., D.O. MW: VELMA D: ??06/13/2023 6:15 PM T: ??06/13/2023 6:15 PM Report ID: [id number] Reading Location: ??[id number] Procedure Note Brian Martinez MD - 06/13/2023 EXAM DESCRIPTION: CT HEAD WO CONTRAST REASON FOR STUDY: Mental status change, unknown cause Pt to ED with daughter for c/o hallucinations and an odor to her urinesince Saturday. Pt has been seeing kids that aren't there per daughter. Pt has hxof dementia per daughter. TECHNIQUE: Axial images acquired through the brain without intravenous contrast. Images stored on PACS. Automated exposure control was used asa dose optimization technique for this examination. COMPARISON: MR brain dated 01/03/2022. FINDINGS: BRAIN: There is stable mild volume loss. There are imte-ht-yacfebogtrjfwb areas of hypodensity in the periventricular, subcortical and deep whitematter as evidence for chronic microvascular angiopathy which may have progressedin the interval compared to abnormal T2/FLAIR signal on prior MRI. Noregional hypodensity is evident. No evidence of intracranial hemorrhage. EXTRA-AXIAL SPACES: No fluid collections. No mass effect. CALVARIUM: Appears intact. SINUSES/MASTOIDS: Visualized portions are clear. ORBITS: Status post bilateral lens extractions. OTHER: No other significant abnormality. IMPRESSION: No acute intracranial findings. THIS IS AN ELECTRONICALLY VERIFIED FINAL REPORT 06/13/2023 6:15 PM - Electronically signed by Brian Martinez M.D., D.O. Brian Martinez M.D., D.O. MW: VELMA Report ID: [id number] Reading Location: [id number] Dodie Mckenzie MD IM CT PROCEDURES Final Result * (ABNORMAL) Urinalysis reflex to microscopic and culture Urine (06/13/2023 5:41 PM PIG MACHINE SUPERVISOR) Color, ur Yellow Yellow [facility] ([place]) Clarity, ur Clear Clear [facility] ([place]) Specific gravity, ur 1.021 1.003 - 1.030 [facility] ([place]) pH, urine 5.5 [facility] ([place]) Comment: Interpretive Data ? Urine pH is affected by diet, medications, systemic acid-base disturbances, and renal tubular function. ??pH may affect urinary stone formation. ??For example, urine pH below 6.0 may help reduce the tendency for calcium phosphate stones and pH greater than 6.0 may reduce the tendency for uric acid stone formation. Source: [facility] [employer] Current Interpretive Data was last revised on 2017 Protein, ur ql Trace Negative [facility] ([place]) Glucose, ur ql Trace(A) Negative [facility] ([place]) Ketones, ur Negative Negative [facility] ([place]) Bilirubin, ur Negative Negative [facility] ([place]) Blood, ur Negative Negative [facility] ([place]) Urobilinogen, ur <2.0 <2.0 mg/dL [facility] ([place]) Nitrite, ur Negative Negative [facility] ([place]) Leukocyte esterase, ur Negative Negative [facility] ([place]) UA reflex comment Reflex conditions for microscopic UA and culture not met. [facility] ([place]) Urine 06/13/2023 5:41 PM PIG MACHINE SUPERVISOR 06/13/2023 5:43 PM PIG MACHINE SUPERVISOR us Neetu Mays MD LAB MICROBIOLOGY - GENERA L ORDERABLES Final Result [facility] ([place]) [facility] [place] [address] documented in this encounter Visit Diagnoses Diagnosis Hallucinations- Primary documented in this encounter Administered Medications Inactive Administered Medications - up to 3 most recent administrations Medication Order MAR Action Action Date Dose Rate Site sodium chloride 0.9% bolus 250 mL 250 mL, intravenous, Once, On Em[place] 06/13/23 at 1740, For 1 dose New Bag 06/13/2023 6:31 PM PIG MACHINE SUPERVISOR 250 mL documented in this encounter Active and Recently Administered Medications Times are shown in PIG MACHINE SUPERVISOR. Scheduled Medication Order 06/11/2023 06/12/2023 06/13/2023 sodium chloride 0.9% bolus 250 mL (COMPLETED) 250 mL, intravenous, Once, On [place] 06/13/23 at 1740, For 1 dose 1831 (New Bag - Prov ider: Joshua Jasmine, RN)2010 (Stopped - Provider: Dominic Silva, GEMA) documented in this encounter Additional Health Concerns Infection Onset Date Last Indicated Resolved Time COVID: Recovered Comment:Added based on recent COVID infection. 05/01/2023 05/03/2023 07/30/2023 3:06 AM C DT documented as of this encounter Care Teams Parts Clerk Plant Maintenance Relationship Specialty Start Date End Date Jocelynn Coy DO PCP - General Family Medicine 06/10/17 09/02/23 Brian Madera MD [address] [address] Consulting Physician Neurology 04/02/22 documented as of this encounter
--- OUTSIDE RECORDS SUMMARY | 2024-03-31 14:20 | XMS_ITS | Encounter Summary ---
Author Organization [facility] Healthcare Address [address] [place] [address] Care Team Providers Care Sales Contractor Name Role Phone Jocelynn Coy DO Primary Care Provider [phone] Brian Madera MD Unavailable [phone] Reason for Visit * Reason Comments Alzheimer's Disease Worsening, now havin g hallucinations. 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) (Primary Dx); Hallucinations; Generalized anxiety disorder; Black eye of right side, sequela Social History Tobacco Use Types Packs/Day Years [...] on file Legal Sex Female 8:45 PM SAIL FINISHER HAND Gender Identity Female 04/25/2021 2:46 PM SAIL FINISHER HAND Sexual Orientation Straight 04/25/2021 2: 46 PM SAIL FINISHER HAND documented as of this encounter Last Filed Vital Signs Vital Sign Reading Time Taken Comments Blood Pressure 126/58 06/17/2023 12:46 PM SAIL FINISHER HAND Pulse 65 06/17/2023 12:46 PM SAIL FINISHER HAND Temperature 36.4 ??C (97.5 ??F) 06/17/2023 1 2:46 PM SAIL FINISHER HAND Respiratory Rate 16 06/17/2023 12:4 6 PM SAIL FINISHER HAND Oxygen Saturation 99% 06/17/2023 12: 46 PM SAIL FINISHER HAND Inhaled Oxygen Concentration - - Weight 56.2 kg (123 lb 14.4 oz) 024 12:46 PM SAIL FINISHER HAND Height 149.9 cm (4' 11 ) 06/17/2023 12: 46 PM SAIL FINISHER HAND Body Mass Index 25.02 06/17/2023 12:46 PM SAIL FINISHER HAND documented in this encounter Patient Instructions * Patient Instructions* Jocelynn Coy, - 06/17/2023 1:00 PM SAIL FINISHER HAND Health Maintenance Topics with due status: Overdue Topic Date Due Dilated Eye Exam Never done Zoster Vaccine Never done Covid-19 Vaccine 12/14/2022 Thanks for coming in today! My medical liaison and I are thankful you have trusted us with your care, and hope that you received EXCELLENT care today! Although some conditions may not allow immediate improvement, I aim to always make you feel a little better leaving, than when you came in. [place] not hesitate to call, if you have any questions or concerns, at [phone]. You may receive a phone call, text, MYCHART message, or e-mail asking you to take a survey about your care today. We would love to hear your feedback on how EXCELLENT your care was today! Wishing you better health, always! Dr. Jocelynn Coy FINISHER HAND * Attachments The following attachments cannot be sent through Care Everywhere. * Hallucinations (Sign Hanger Supervisor) (Hungarian) documented in this encounter Ordered Prescriptions Prescription Sig Dispense Quantity Refills Last Filled Start Date End Date LORazepam (ATIVAN) 0.5 mg tabletIndications: anxiety Take 0.5 tab qam and 1 mg qpm prn anxiety 45 tablet 5 06/17/2023 4 documented in this encounter Progress Notes * Jocelynn Coy DO - 06/17/2023 1:00 PM CST Images from the original note were not included. Subjective/Objective Patient ID: Annita Bose is a 82 y.o. female. Chief Complaint Chief Complaint Patient presents with Alzheimer's Disease Worsening, now having hallucinations. ER f/u HPI Patient started having hallucinations after zamzam COVID - 19 in April. She is here today with her daughter. Her daughter gives most of the HPI. This is her 2 nd visit to the ER since the new year for the hallucinations. Patient and daughter reports that Mrs. Ariza's anxiety is worsening. They are asking for an increase in her anxiety medication. Review of Systems Constitutional: Negative for fever. Eyes: Black eye-right Respiratory: Negative for shortness of breath. Cardiovascular: Negative for chest pain and palpitations. Gastrointestinal: Positive for abdominal pain. Skin: Positive for color change. Neurological: Negative for dizziness. Psychiatric/Behavioral: Positive for confusion. Negative for suicidal ideas. The patient is nervous/anxious. All other systems reviewed and are negative. Vitals: 06/17/23 1246 BP: 126/58 BP Location: Left arm Patient Position: Sitting Pulse: 65 Resp: 16 Temp: 36.4 ??C (97.5 ??F) SpO2: 99% Weight: 56.2 kg (123 lb 14.4 oz) Height: 149.9 cm (4' 11 ) Body mass index is 25.02 kg/m??. Physical Exam Vitals and nursing note reviewed. Constitutional: Appearance: Normal appearance. HENT: Head: Normocephalic and atraumatic. Eyes: Comments: Contusion right eye Cardiovascular: Rate and Rhythm: Normal rate and regular rhythm. Heart sounds: Normal heart sounds. Pulmonary: Effort: Pulmonary effort is normal. No respiratory distress. Breath sounds: Normal breath sounds. No wheezing. Abdominal: General: Bowel sounds are normal. Palpations: Abdomen is soft. Tenderness: There is no abdominal tenderness. Skin: Findings: Bruising (right eye-periobital) present. Neurological: Mental Status: She is alert. Psychiatric: Attention and Perception: Attention normal. Mood and Affect: Mood is anxious. Speech: Speech normal. Behavior: Behavior normal. Thought Content: Thought content normal. Thought content does not include homicidal or suicidal ideation. Thought content does not include homicidal or suicidal plan. 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 Continue Namenda. Hallucinations Assessment & Plan: Patient to f/u with neurology, she did not tolerate Seroquel. Generalized anxiety disorder Assessment & Plan: Agree to increase lorazepam to 0.5 mg qam and 1 mg qpm. Orders: - LORazepam (ATIVAN) 0.5 mg tablet; Take 0.5 tab qam and 1 mg qpm prn anxiety Black eye of right side, sequela Assessment & Plan: Vision unchanged. Reassurance given. Jocelynn Coy DO This note is dictated and transcribed by [employer]. Crew Foreman variances may occur. Despite proofreading, typographical errors may occur. documented in this encounter Miscellaneous Notes * Assessment & Plan Note - Jocelynn Coy DO - 06/24/2023 10:24 PM CDT Associated Problem(s): Black eye of right side Vision unchanged. Reassurance given. * Assessment & Plan Note - Jocelynn Coy DO - 06/24/2023 10:23 PM CDT Associated Problem(s): Hallucinations Patient to f/u with neurology, she did not tolerate Seroquel. * Assessment & Plan Note - Jocelynn Coy DO - 06/24/2023 10:22 PM CDT Associated Problem(s): Generalized anxiety disorder Agree to increase lorazepam to 0.5 mg qam and 1 mg qpm. 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 Continue Namenda. 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 05/01/2023 05/03/2023 07/30/2023 3:06 AM C DT documented as of this encounter Care Teams Sales Contractor Relationship Specialty Start Date End Date Jocelynn Coy DO PCP - General Family Medicine 06/10/17 09/02/23 Brian Madera MD [address] [facility] [place] [address] Consulting Physician Neurology 04/02/22 documented as of this encounter
--- OUTSIDE RECORDS SUMMARY | 2024-03-31 14:20 | XMS_ITS | Encounter Summary ---
Author Organization [facility] Healthcare Address [address] [place] [address] Care Team Providers Care Captain Fishing Vessel Name Role Phone Jocelynn Coy DO Primary Care Provider [phone] Brian Madera MD Unavailable Reason for Visit * Reason Onset Date Comments Medical Question/Miscellaneous 06/27/2023 Encounter Details Date Type Department Care Team (Late st Contact Info) Description 06/27/[address] [facility] Medical Group Primary Care at [address] [place] [address] [place] [address] [place] [address] [place] [address] Medical Question/Miscellaneous Social History Tobacco Use Types Packs/Day Years [...] points, staff should administer the PHQ-9) 0 07/17/2023 Personal Safety Answer Date Recorded Have you ever been in or are you currently in a harmful physical or emotional relationship or is someone making you feel afraid or unsafe? Denies 06/13/2023 Comments No Sex and Gender Information Value Date Recorded Sex Assigned at Not on file Legal Sex Female 8:45 PM ZIPPER SETTER CHAINSTITCH Gender Identity Female 04/25/2021 2:46 PM ZIPPER SETTER CHAINSTITCH Sexual Orientation Straight 04/25/2021 2: 46 PM ZIPPER SETTER CHAINSTITCH documented as of this encounter Miscellaneous Notes * Telephone Encounter - Delphine Key MA - 06/27/2023 11:21 AM CDT Please review. * Telephone Encounter - Annabella Draper - 06/27/2023 10:22 AM CDT Medical Question/Miscellaneous Caller???s Concern: Toyin-patient daughter on HIPAA called and stated she believes someone from the practice just called patient by the name of Brittney. AC seen no notes in regards to a reason for call. If practice did call please call Toyin back. Stated if no answer please leave a VM. Does message need to be routed? Yes-Action Needed documented in this encounter Plan of Treatment Not on file documented as of this encounter Visit Diagnoses Not on filedocumented in this encounter Additional Health Concerns Infection Onset Date Last Indicated Resolved Time COVID: Recovered Comment:Added based on recent COVID infection. 05/01/2023 05/03/2023 07/30/2023 3:06 AM C DT documented as of this encounter Care Teams Captain Fishing Vessel Relationship Specialty Start Date End Date Jocelynn Coy DO PCP - General Family Medicine 06/10/17 09/02/23 Brian Madera MD [address] [address] Consulting Physician Neurology 04/02/22 documented as of this encounter
--- OUTSIDE RECORDS SUMMARY | 2024-03-31 14:20 | XMS_ITS | Encounter Summary ---
Author Organization [facility] Healthcare Address [address] [place] [address] Care Team Providers Care Synthetic Resin Operator Name Role Phone Brian Madera MD Unavailable [phone] Carmelita Olivera MD Primary Care Provide r Encounter Details Date Type Department Care Team (Late st Contact Info) Description 09/03/2023 Telephone [facility] Primary Care at [address] [address] Carmelita Olivera MD [address] [place] [address] Social History Tobacco Use Types Packs/Day [...] on file Legal Sex Female 8:45 PM MISSION MANAGER Gender Identity Female 04/25/2021 2:46 PM MISSION MANAGER Sexual Orientation Straight 04/25/2021 2: 46 PM MISSION MANAGER documented as of this encounter Miscellaneous Notes * Telephone Encounter - Ivette Davenport - 09/05/2023 1:44 PM CDT Referral sent, pt will be contacted for scheduling. * Telephone Encounter - Beth Agosto - 09/03/2023 9:45 AM CDT The patient wants to go to [facility] in On license of [facility] ordered * Telephone Encounter - Beth Agosto - 09/03/2023 9:45 AM CDT Images from the original note were not included. documented in this encounter Plan of Treatment Not on file documented as of this encounter Visit Diagnoses Not on filedocumented in this encounter Care Teams Synthetic Resin Operator Relationship Specialty Start Date End Date Carmelita Olivera MD [address] [place] [address] PCP - General Family Medicine 09/03/23 Brian Madera MD [address] [place] [address] Consulting Physician Neurology 04/02/22 documented as of this encounter
--- OUTSIDE RECORDS SUMMARY | 2024-03-31 14:20 | XMS_ITS | Encounter Summary ---
Author Organization [facility] Healthcare Address [address] [place] [address] Care Team Providers Care Corporate Auditor Name Role Phone Jocelynn Coy Primary Care Provider [phone]- [phone] Brian Madera MD Unavailable Reason for Visit * Reason Comments Pain Pt states she fell o ut of bed about a month ago. Right side pain x 2 days on the same side when she fell out of bed. Daughter is with her and would like her checked out. Encounter Details Date Type Department Care Team (Late st Contact Info) Description 07/03/2023 7:00 PM CDT Office Visit [facility] Convenient Care at [address] [place] [address] Kristen Vilchis, STUDIO ENGINEER [address] [facility] [address] [place] [id number] Muscle strain (Primary Dx) Social History Tobacco Use Types [...] on file Legal Sex Female 8:45 PM SIGN OUT CLERK Gender Identity Female 04/25/2021 2:46 PM SIGN OUT CLERK Sexual Orientation Straight 04/25/2021 2: 46 PM SIGN OUT CLERK documented as of this encounter Last Filed Vital Signs Vital Sign Reading Time Taken Comments Blood Pressure 100/50 07/03/2023 6:55 PM CDT Pulse 65 07/03/2023 6:55 PM CDT Temperature 36.6 ??C (97.9 ??F) 07/03/2023 6:55 PM CD T Respiratory Rate 22 07/03/2023 6:55 PM CDT Oxygen Saturation 98% 07/03/2023 6:55 PM CDT Inhaled Oxygen Concentration - - Weight 55.8 kg (123 lb) 07/03/2023 6:55 PM CDT Height 149.9 cm (4' 11 ) 07/03/2023 6:55 PM CDT Body Mass Index 24.84 07/03/2023 6:55 PM CDT documented in this encounter Patient Instructions * Patient Instructions* Kristen Vilchis, NORMAN - 07/03/2023 7:00 PM CDT If you have no improvement [...] meet your needs. Thank you for choosing [facility]! It was my pleasure to see you today, I hope you feel better soon! Lidocaine patches, Biofreeze Patches Stretches You can apply ice or heat for 20min- 4x/day to affected area Tylenol/Motrin for pain Follow up with your PCP if you are not getting better. Complete any medication prescribed documented in this encounter Progress Notes * Kristen Vilchis NP - 07/03/2023 7:00 PM CDT Images from the original note were not included. Subjective/Objective Patient ID: Annita Bose is a 82 y.o. female. Chief Complaint Pain (Pt states she fell out of bed about a month ago. Right side pain x 2 days on the same side when she fell out of bed. Daughter is with her and would like her checked out.) Presents to clinic for right upper abdominal muscle pain x1 week. Daughter states she sleeps in a weird position sometimes. Has used a biofreeze patch. Denies any pain unless moving. Review of Systems All systems reviewed and are negative or non contributory for this patient's presentation today other than as stated in the HPI. Physical Exam Vitals reviewed. Constitutional: Appearance: Normal appearance. She is not ill-appearing. HENT: Head: Normocephalic. Mouth/Throat: Pharynx: Oropharynx is clear. Cardiovascular: Rate and Rhythm: Normal rate. Pulmonary: Effort: Pulmonary effort is normal. Breath sounds: Normal breath sounds. Abdominal: General: Abdomen is flat. There is no distension. Palpations: Abdomen is soft. There is no mass. Tenderness: There is no abdominal tenderness. Musculoskeletal: General: Normal range of motion. Skin: General: Skin is warm and dry. Neurological: Mental Status: She is alert and oriented to person, place, and time. Mental status is at baseline. Psychiatric: Mood and Affect: Mood normal. Behavior: Behavior normal. Thought Content: Thought content normal. Judgment: Judgment normal. Vitals: 07/03/23 1855 BP: 100/50 Pulse: 65 Resp: 22 Temp: 36.6 ??C (97.9 ??F) SpO2: 98% Weight: 55.8 kg (123 lb) Height: 149.9 cm (4' 11 ) Assessment/Plan Lidocaine patches, Biofreeze Patches Stretches You can apply ice or heat for 20min- 4x/day to affected area Tylenol/Motrin for pain Follow up with your PCP if you are not getting better. Complete any medication prescribed Diagnoses and all orders for this visit: Muscle strain (Primary) No results found for this or any [...] as of this encounter Visit Diagnoses Diagnosis Muscle strain- Primary Unspecified site of sprain and strain documented in this encounter Additional Health Concerns Infection Onset Date Last Indicated Resolved Time COVID: Recovered Comment:Added based on recent COVID infection. 05/01/2023 05/03/2023 07/30/2023 3:06 AM C DT documented as of this encounter Care Teams Corporate Auditor Relationship Specialty Start Date End Date Jocelynn Coy DO PCP - General Family Medicine 06/10/17 09/02/23 Brian Madera MD [address] [place] [address] Consulting Physician Neurology 04/02/22 documented as of this encounter
--- OUTSIDE RECORDS SUMMARY | 2024-03-31 14:20 | XMS_ITS | Encounter Summary ---
Author Organization [facility] Healthcare Address [address] [place] [address] Care Team Providers Care Systems Integration Engineer Name Role Phone Brian Madera MD Unavailable [phone] Carmelita Olivera MD Primary Care Provide r Reason for Visit * Reason Onset Date Comments Care Hand Patcher [facility] 10/22/2023 [facility] Encounter Details Date Type Department Care Team (Late st Contact Info) Description 10/22/2023 Telephone [facility] Primary Care at [address] [place] [address] Mikala Sheth, [address] [place] [address] Care Hand Patcher [facility] ([facility] ) Social History Tobacco Use Types Packs/Day Years [...] on file Legal Sex Female 8:45 PM PATCHER WOOD WELDER Gender Identity Female 04/25/2021 2:46 PM PATCHER WOOD WELDER Sexual Orientation Straight 04/25/2021 2: 46 PM PATCHER WOOD WELDER documented as of this encounter Miscellaneous Notes * Telephone Encounter - Terra Villasenor MA - 10/22/2023 10:46 AM CDT Contacted patients daughter and was able to get her scheduled for an er follow up for 10/23/2023 * Telephone Encounter - Mikala Sheth MA - 10/22/2023 9:24 AM CDT This [facility] patient had an ED visit at [facility] for weakness nausea and vomiting, unspecified vomiting type on 10/20/2023. PCP appointment was not able to be scheduled at this time due to no provider availability within recommended time frame. Please call the pt to schedule on or before 10/27[facility]20[facility]. Thank you, Mikala Sheth CMA ACO Care Hand Patcher [facility] [phone] documented in this encounter Plan of Treatment Not on file documented as of this encounter Visit Diagnoses Not on filedocumented in this encounter Care Teams Systems Integration Engineer Relationship Specialty Start Date End Date Carmelita Olivera MD [address] [facility] [address] [facility] [address] [place] [address] PCP - General Family Medicine 09/03/23 Brian Madera MD [address] [facility] [address] [place] [address] Consulting Physician Neurology 04/02/22 documented as of this encounter
--- OUTSIDE RECORDS SUMMARY | 2024-03-31 14:20 | XMS_ITS | Encounter Summary ---
Author Organization [facility] Healthcare Address [address] [place] [address] Care Team Providers Care Contracts Officer Name Role Phone Jocelynn Coy DO Primary Care Provider [phone] Brian Madera MD Unavailable [phone] Reason for Visit * Reason Onset Date Comments Additional Services Or Orders 06/12/2023 Call Back 06/12/2023 Encounter Details Date Type Department Care Team (Late st Contact Info) Description 06/12/2023 Telephone [facility] Primary Care at [address] [place] [address] Jocelynn Coy DO [address] [place], [place] [id number] Additional Services Or Orders; Call Back Social History Tobacco Use Types Packs/Day Years [...] on file Legal Sex Female 8:45 PM TAKE OUT WAITER Gender Identity Female 04/25/2021 2:46 PM TAKE OUT WAITER Sexual Orientation Straight 04/25/2021 2: 46 PM TAKE OUT WAITER documented as of this encounter Miscellaneous Notes * Telephone Encounter - Yamilex Johnson MA - 06/13/2023 10:26 AM CST Toyin is aware, states she will take Pt to ER when she gets off OUT WAITER * Telephone Encounter - Hernesto Mccrary - 06/13/2023 9:07 AM CST Medical Question/Miscellaneous Caller???s Concern: Patient's daughter returned missed call regarding patient symptoms Advised per chart notes. She stated stated understanding and asked [facility] Requesting call back Does message need to be routed? Yes-Action Needed OUT WAITER * Telephone Encounter - Delphine Key MA - 06/13/2023 8:57 AM CST Per covering provider, I attempted to contact Toyin-daughter on HIPAA to inform her that due to stating that Annita is Hallucinating patient needs to be seen at nearest ER for evaluation and followup at appointment on Saturday. Toyin did not answer, left message on machine to return call back to office. If Toyin calls back please relay message above. OUT WAITER * Telephone Encounter - Gabrielle Rivera MA - 06/12/2023 2:18 PM CST Additional Services or Orders Type of Service Requested:Labs Reason for Request (e.g. condition/symptom, date of COVID exposure if applicable): Daughter Toiyn verified on HIPAA states she spoke with a nurse who told her that due to the patient hallucinating she may have a UTI. Her urine does smell strong the daughter says. Details Regarding Additional Services (e.g. type of home health, type of equipment, type of test, etc.): Urinalysis Where will services be performed? (if outside of the practice, facility name, address, phone/fax offacility): TBD Additional Comments: CS did not send to triage when daughter says the patient was hallucinating dueto the daughter said she just spoke with a nurse and was told to have this test done. The patient does have an appointment on Saturday. Please advise and thank you so much. Does message need to be routed? Yes-Action Needed OUT WAITER documented in this encounter Plan of Treatment Not on file documented as of this encounter Visit Diagnoses Not on filedocumented in this encounter Additional Health Concerns Infection Onset Date Last Indicated Resolved Time COVID: Recovered Comment:Added based on recent COVID infection. 05/01/2023 05/03/2023 07/30/2023 3:06 AM C DT documented as of this encounter Care Teams Contracts Officer Relationship Specialty Start Date End Date Jocelynn Coy DO PCP - General Family Medicine 06/10/17 09/02/23 Brian Madera MD [address] [place] [address] [address] [place] [address] Consulting Physician Neurology 04/02/22 documented as of this encounter
--- OUTSIDE RECORDS SUMMARY | 2024-03-31 14:20 | XMS_ITS | Encounter Summary ---
Author Organization [facility] Healthcare Address [address] [place] [address] Care Team Providers Care Superintendent Factory Name Role Phone Brian Madera MD Unavailable [phone] Carmelita Olivera MD Primary Care Provide r Reason for Visit * Reason Comments Successful Phone Call 10/20/2023 (1 hours) [facility] Emergency Department Encounter Details Date Type Department Care Team (Late st Contact Info) Description 10/22/2023 [place] ED Outreach [facility] Accountable Care Organization [address] [place] [address] Mikala Sheth, [address] M[address]INI [address] [place] [id number] Social History Tobacco Use Types Packs/Day Years [...] on file Legal Sex Female 8:45 PM PACKAGE LIFT OPERATOR Gender Identity Female 04/25/2021 2:46 PM PACKAGE LIFT OPERATOR Sexual Orientation Straight 04/25/2021 2: 46 PM PACKAGE LIFT OPERATOR documented as of this encounter Progress Notes * Mikala Sheth MA - 10/22/2023 9:20 AM CDT Care Hold Worker contacted patient regarding recent ED visit at [facility] on 10/20/2023 (1 hour) for weakness nausea and vomiting, unspecified vomiting type. Status of Reason for ED Visit - Better Status Details: - Care onsite health coach spoke with patient's daughter, Toyin, who informed me patient is feeling better today. Toyin reports patient is back to her normal baseline. Toyin states patient is not experiencing any nausea or weakness. Toyin mentioned that patient's blood sugar was elevated the day she went to the ED but it has since come back down. Discharge Instructions Reviewed - Yes Details: - Toyin confirmed discharge paperwork was received and she did not have any further questions. Medication Reconciliation Completed - Yes Details: - Toyin states patient is taking her normal maintenance medications and was not prescribed anything new. ED Follow-Up Appointment - Not scheduled. Details: - No provider availability within recommended time frame -- message sent to PCP's office for scheduling assistance. Patient's daughter educated about same day sick appts at PCP office and when to utilize office vs urgent care vs ED. Patient's daughter verbalized understanding of information presented. No additional needs identified at this time. Provided my contact information for future needs. Thank you, Mikala Sheth [facility] Care Hold Worker [facility] [phone] documented in this encounter Plan of Treatment Not on file documented as of this encounter Visit Diagnoses Not on filedocumented in this encounter Care Teams Superintendent Factory Relationship Specialty Start Date End Date Carmelita Olivera MD [address] [facility] [place] [address] PCP - General Family Medicine 09/03/23 Brian Madera MD [address] [facility] [place] [address] Consulting Physician Neurology 04/02/22 documented as of this encounter
--- OUTSIDE RECORDS SUMMARY | 2024-03-31 14:20 | XMS_ITS | Encounter Summary ---
Author Organization [facility] Healthcare Address [address] [place] [address] Care Team Providers Care World Renowned Chef And Restaurant Owner Name Role Phone Brian Madera MD Unavailable [phone] Carmelita Olivera MD Primary Care Provide r Encounter Details Date Type Department Care Team (Late st Contact Info) Description 09/03/2023 Orders Only [facility] Primary Care at [address] [place] [id number] Carmelita Olivera MD [address] [place] [address] [address] [place] [address] Need for hepatitis B screening test (Primary Dx); Healthcare maintenance; Type 2 diabetes mellitus with hyperglycemia, without [...] on file Legal Sex Female 8:45 PM MERCHANDISING INTERNSHIP Gender Identity Female 04/25/2021 2:46 PM MERCHANDISING INTERNSHIP Sexual Orientation Straight 04/25/2021 2: 46 PM MERCHANDISING INTERNSHIP documented as of this encounter Plan of Treatment Scheduled Orders Name Type Priority Associated Diagnoses Orde r Schedule CBC with auto differential Lab Routine Healthcare maintenance Type 2 diabetes mellitus with hyperglycemia, without long-term current use of insulin ([facility]) ([facility]) Expected: 09/03/2023, Expires: 09/02/2024 Comprehensive metabolic panel Lab Routine Healthcare maintenance Type 2 diabetes mellitus with hyperglycemia, without long-term current use of insulin ([facility]) (HCC) Expected: 09/03/2023 (Approximate), Expires: 09/02/2024 Lipid panel Lab Routine Healthcare maintenance Type 2 diabetes mellitus with hyperglycemia, without long-term current use of insulin ([facility]) (HCC) Expected: 09/03/2023, Expires: 09/02/2024 Thyroid Function [place] Lab Routine Healthcare maintenance Type 2 diabetes mellitus with hyperglycemia, without long-term current use of insulin ([facility]) (HCC) Expected: 09/03/2023, Expires: 09/02/2024 Hemoglobin A1c Lab Routine Healthcare maintenance Type 2 diabetes mellitus with hyperglycemia, without long-term current use of insulin ([facility]) ([facility]) Expected: 09/03/2023, Expires: 09/02/2024 Albumin Creatinine Ratio, Urine Lab Routine Healthcare maintenance Type 2 diabetes mellitus with hyperglycemia, without long-term current use of insulin ([facility]) (HCC) Expected: 09/03/2023, Expires: 09/02/2024 Hepatitis B surface antibody (immune status) Blood Microbiology Routine Need for hepatitis B screening test Healthcare maintenance Expected: 09/03/2023, Expires: 09/02/2024 Hepatitis B Surface Antigen Blood Microbiology Routine Need for hepatitis B screening test Healthcare maintenance Expected: 09/06/2023, Expires: 09/02/2024 Hepatitis B core antibody, total Blood Microbiology Routine Need for hepatitis B screening test Healthcare maintenance Expected: 09/06/2023, Expires: 09/02/2024 documented as of this encounter Visit Diagnoses Diagnosis Need for hepatitis B screening test- Primary Healthcare maintenance Type 2 diabetes mellitus with hyperglycemia, without long-term current use of insulin (HCC) documented in this encounter Care Teams World Renowned Chef And Restaurant Owner Relationship Specialty Start Date End Date Carmleita Olivera MD [address] [place] [place] [address] PCP - General Family Medicine 09/03/23 Brian Madera MD [address] [place] [address] Consulting Physician Neurology 04/02/22 documented as of this encounter
--- OUTSIDE RECORDS SUMMARY | 2024-03-31 14:20 | XMS_ITS | Encounter Summary ---
Author Organization [facility] Healthcare Address [address] [place] [address] Care Team Providers Care Cement Contractor Name Role Phone Brian Madera MD Unavailable [phone] Carmelita Olivera MD Primary Care Provide r Reason for Visit * Reason Comments Nausea Encounter Details Date Type Department Care Team (Late st Contact Info) Description 10/20/2023 8:55 PM CDT - 10/20/2023 9:57 PM CDT Emergency [facility] Emergency Department [address] [place] [address] Tiago Kerr MD [address] [place] [address] [address] [place] [id number] Weakness (Primary Dx); Nausea and vomiting, unspecified vomiting type Discharge Disposition: Discharge to home or self [...] on file Legal Sex Female 8:45 PM ASSISTANT PROGRAM DIRECTOR Gender Identity Female 04/25/2021 2:46 PM ASSISTANT PROGRAM DIRECTOR Sexual Orientation Straight 04/25/2021 2: 46 PM ASSISTANT PROGRAM DIRECTOR documented as of this encounter Last Filed Vital Signs Vital Sign Reading Time Taken Comments Blood Pressure 117/57 10/20/2023 9:30 PM CDT Pulse 54 10/20/2023 9:30 PM CDT Temperature 36.2 ??C (97.2 ??F) 10/20/2023 8:26 PM CD T Respiratory Rate 18 10/20/2023 8:26 PM CDT Oxygen Saturation 97% 10/20/2023 9:30 PM CDT Inhaled Oxygen Concentration - - Weight 56.2 kg (123 lb 14.4 oz) 10/20/2023 8:26 PM CDT Height - - Body Mass Index 25.89 09/03/2023 9:00 AM CDT documented in this encounter Discharge Instructions * Discharge Instructions* Tiago Kerr MD - 10/20/2023 9:47 PM CDT Continue home medication, follow with your primary doctor. * Attachments The following attachments cannot be sent through Care Everywhere. * Vomiting (Adult) (Ugandan) documented in this encounter Medications at Time [...] hyperglycemia, without long-term current use of insulin ([facility]) 1 Device daily 100 each 3 10/03/2020 memantine (NAMENDA) 10 mg tablet TAKE 1 TABLET BY MOUTH TWICE A DAY 180 tablet 1 09/12/2023 sodium chloride (TRISTAN 128) 5 % ophthalmic solution Administer 1 drop into both eyes as needed 02/27/2023 amLODIPine (NORVASC) 10 mg tabletIndication s:Hypertension associated with diabetes ([facility]) TAKE 1 TABLET BY MOUTH EVERY DAY AT NIGHT 90 tablet 1 07/29/2023 4 atorvastatin (LIPITOR) 20 mg tabletIndication s:Hyperlipidemia associated with type 2 diabetes mellitus ([facility]) TAKE 1 TABLET BY MOUTH EVERY DAY AT NIGHT 90 tablet 1 07/29/2023 4 lisinopriL (PRINIVIL,ZESTRI L) 2.5 mg tabletIndication s:Type 2 diabetes mellitus with hyperglycemia, without long-term current use of insulin ([facility]),Hypertensi on associated with diabetes ([facility]) Take 1 tablet (2.5 mg total) by mouth daily 90 tablet 3 09/20/2022 4 LORazepam (ATIVAN) 0.5 mg tabletIndication s:anxiety Take 1 tab qam and 2 tab qpm prn anxiety. 90 tablet 5 06/24/2023 4 metFORMIN XR (GLUCOPHAGE XR) 500 mg 24 hr tabletIndication s:Type 2 diabetes mellitus with hyperglycemia, without long-term current use of insulin ([facility]) TAKE 1 TABLET BY MOUTH EVERY DAY WITH BREAKFAST 90 tablet 1 07/29/2023 4 omega-3 fatty acids 1,000 mg capsule Take by mouth 4 documented as of this encounter Discharge Disposition Disposition Code Departure Means Destination Comment s Discharge to home or self care documented in this encounter ED Notes * Tiago Kerr MD - 10/20/2023 9:44 PM CDT HPI Chief Complaint Patient presents with Nausea 83-year-old with a history of hypertension, hyperlipidemia, diabetes here with the complaints of nausea which happened earlier this afternoon she also complained of her abdominal pain which resolved by the time she came to the ER she states that she is feeling fine family wants her to be checked out. 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 ([facility]) 03/30/2021 Decreased hearing of both ears 10/13/2020 Type 2 diabetes mellitus with hyperglycemia, without long-term current use of insulin ([facility]) ([facility]) 10/03/2020 Body mass index (BMI) of 25.0 to 25.9 in adult 09/03/2018 Hypertension associated with diabetes ([facility]) 06/07/2017 Hyperlipidemia associated with type 2 diabetes mellitus ([facility]) 06/07/2017 Generalized anxiety disorder 06/07/2017 No past medical history on file. Past Surgical History: Procedure Laterality Date CATARACT EXTRACTION Bilateral 09/07/2021 09/22/2021 FL FLUORO GUIDED LUMBAR PUNCTURE Right 01/17/2022 Family History Problem Relation Age of Onset Breast cancer Sister Breast cancer Sister Colon cancer Sister Social History Tobacco Use Smoking status: Never Smokeless tobacco: Never Substance and Sexual Activity Alcohol use: No Drug use: No Sexual activity: Not on file Social History Social History Narrative Not on file Review of Systems Review of Systems Constitutional: Negative. HENT: Negative. Respiratory: Negative. Cardiovascular: Negative. Gastrointestinal: Positive for abdominal pain and nausea. Genitourinary: Negative. Musculoskeletal: Negative. Neurological: Negative. Hematological: Negative. Psychiatric/Behavioral: Negative. Physical Exam ED Triage Vitals [10/20/232025] Temp Pulse Resp BP SpO2 36.2 ??C (97.2 ??F) 73 18 (!) 115/44 100 % Temp src Heart Rate Source Patient Position BP Location FiO2 (%) -- -- -- -- -- Height Height Method Weight Weight Method -- -- 56.2 kg (123 lb 14.4 oz) -- Physical Exam Vitals and nursing note reviewed. Constitutional: Appearance: Normal appearance. HENT: Head: Normocephalic and atraumatic. Nose: Nose normal. Eyes: Pupils: Pupils are equal, round, and reactive to light. Cardiovascular: Rate and Rhythm: Normal rate and regular rhythm. Pulmonary: Effort: Pulmonary effort is normal. Breath sounds: Normal breath sounds. Abdominal: Palpations: Abdomen is soft. Musculoskeletal: General: Normal range of motion. Skin: General: Skin is warm. Neurological: General: No focal deficit present. Mental Status: She is alert and oriented to person, place, and time. Results for orders placed or performed during the hospital encounter of 10/20/23 CBC with auto differential Result Value Ref Range WBC 6.7 3.8 - 9.9 K/cumm Hgb 13.3 11.9 - 15.5 g/dL Hct 41.7 35.6 - 45.5 % Plt 234 150 - 400 K/cumm MPV 9.5 9.1 - 12.3 fL RBC 4.97 3.90 - 5.20 M/cumm MCV 83.9 81.3 - 96.4 fL MCH 26.8 (L) 27.1 - 33.3 pg MCHC 31.9 (L) 32.3 - 35.7 g/dL RDW CV 13.2 11.1 - 14.9 % RDW SD 40.1 35.7 - 48.1 fL NRBC abs 0.00 0.00 - 0.01 K/cumm Comprehensive metabolic panel Result Value Ref Range Sodium 140 135 - 145 mmol/L Potassium, pl 4.1 3.3 - 4.9 mmol/L Chloride 103 97 - 110 mmol/L CO2 26 22 - 32 mmol/L Anion gap 11 2 - 15 mmol/L BUN 17 6 - 25 mg/dL Creatinine 0.89 0.60 - 1.10 mg/dL Glucose 101 70 - 199 mg/dL Calcium 9.3 8.5 - 10.3 mg/dL Bilirubin, total 0.3 0.1 - 1.2 mg/dL Protein, pl 6.4 (L) 6.5 - 8.5 g/dL Albumin 3.7 3.5 - 5.0 g/dL Alk phos 81 40 - 130 Units/L ALT 12 7 - 45 Units/L AST 21 10 - 45 Units/L Differential, auto Result Value Ref Range Neutrophil abs 3.9 1.5 - 6.5 K/cumm Imm gran abs 0.0 0.0 - 0.1 K/cumm Lymphocyte abs 2.3 0.8 - 3.3 K/cumm Monocyte abs 0.4 0.2 - 0.8 K/cumm Eosinophil abs 0.1 0.0 - 0.5 K/cumm Basophil abs 0.0 0.0 - 0.1 K/cumm Neutrophil pct 57.8 % Imm gran pct 0.2 % Lymphocyte pct 34.6 % Monocyte pct 5.7 % Eosinophil pct 1.2 % Basophil pct 0.5 % eGFR Result Value Ref Range eGFR 65 >=60 mL/min/1.73 m2 [facility] Medical Decision Making ED Course as of 10/20/232146 Time: 10/19 2145 Comment: Notified patient and her daughter about her lab work. She states that she is feeling much better she prefers to go home. By: Tiago Kerr MD Final diagnoses: Weakness Nausea and vomiting, unspecified vomiting type Tiago Kerr MD 10/20/232146 * Sukumar Moran RN - 10/20/2023 8:24 PM CDT Patient arrives to the ED with complaints of intermittent nausea since this morning. Per family shewas nauseated, but patient states she feels just fine right now. Family states her blood sugar was 190 this morning. documented in this encounter Plan of Treatment Not on file documented as of this encounter Procedures Procedure Name Priority Date/Time Associated Diagnosis Comments EGFR STAT 10/20/2023 8:48 PM CDT DIFFERENTIAL AUTO STAT 10/20/2023 8:4 8 PM CDT CBC WITH AUTO DIFFERENTIAL STAT 10/20/2023 8:48 PM CDT COMPREHENSIVE METABOLIC PANEL STAT 10/20/2023 8:48 PM CDT documented in this encounter Results * eGFR (10/20/2023 8:48 PM CDT) Pathologist [facility] eGFR 65 >=60 mL/min/1. 73 m2 Comment: Interpretive Data [...] of Race in Diagnosing Kidney Disease, JASN 202). The CKD-EPI equation should not be used for patients with unstable renal function and has not been validated in children and those over 70. Current interpretive data was last reviewed 2021. Blood 10/20/2023 8:48 PM CDT 10/20/2023 8:51 PM CDT us Tiago Kerr MD LAB BLOOD ORDERABLES Final Res ult JOSE MARCELINO ([place]) 1 [facility] Department [place] [address] * Differential, auto (10/20/2023 8:48 PM CDT) Pathologist [facility] Neutrophil abs 3.9 1.5 - 6.5 K/cumm Imm gran abs 0.0 0.0 - 0.1 K/cumm [facility] ([place]) Lymphocyte abs 2.3 0.8 - 3.3 K/cumm [facility] ([place]) Monocyte abs 0.4 0.2 - 0.8 K/cumm [facility] ([place]) Eosinophil abs 0.1 0.0 - 0.5 K/cumm [facility] ([place]) Basophil abs 0.0 0.0 - 0.1 K/cumm [facility] ([place]) Neutrophil pct 57.8 % [facility] ([place]) Comment: Interpretive [...] was last revised on 2017. Lymphocyte pct 34.6 % [facility] ([place]) Comment: Interpretive Data Percent cell count reference ranges are not reported, since discordance with absolute values may lead to misinterpretation of CBC data. Current Interpretive Data was last revised on 2017. Monocyte pct 5.7 % [facility] ([place]) Comment: Interpretive Data Percent cell count reference ranges are not reported, since discordance with absolute values may lead to misinterpretation of CBC data. Current Interpretive Data was last revised on 2017. Eosinophil pct 1.2 % [facility] ([place]) Comment: Interpretive Data Percent cell count reference ranges are not reported, since discordance with absolute values may lead to misinterpretation of CBC data. Current Interpretive Data was last revised on 2017. Basophil pct 0.5 % [facility] ([place]) Comment: Interpretive Data Percent cell count reference ranges are not reported, since discordance with absolute values may lead to misinterpretation of CBC data. Current Interpretive Data was last revised on 2017. Blood 10/20/2023 8:48 PM CDT 10/20/2023 8:51 PM CDT us Tiago Kanumuri MD LAB BLOOD ORDERABLES Final Res ult [facility] ([place]) 1 [facility] Department [place] [address] * (ABNORMAL) Comprehensive metabolic panel (10/20/2023 8:48 PM CDT) Sodium 140 135 - 145 mmol/L Potassium, pl 4.1 3.3 - 4.9 mmol/L [facility] ([place]) Chloride 103 97 - 110 mmol/L [facility] ([place]) CO2 26 22 - 32 mmol/L [facility] ([place]) Anion gap 11 2 - 15 mmol/L [facility] ([place]) BUN 17 6 - 25 mg/dL [facility] ([place]) Creatinine 0.89 0.60 - 1.10 mg/dL [facility] ([place]) Glucose 101 70 - 199 mg/dL [facility] ([place]) [...] classification and Diagnosis of Diabetes Diabetes Care 2021; 46: S19-S40. Current interpretive data was last revised 2022. Calcium 9.3 8.5 - 10.3 mg/dL [facility] ([place]) Bilirubin, total 0.3 0.1 - 1.2 mg/dL [facility] ([place]) Protein, pl 6.4(L) 6.5 - 8.5 g/dL [facility] ([place]) Albumin 3.7 3.5 - 5.0 g/dL [facility] ([place]) Alk phos 81 40 - 130 Units/L [facility] ([place]) ALT 12 7 - 45 Units/L [facility] ([place]) AST 21 10 - 45 Units/L [facility] ([place]) Comment:Slightly Hemolyzed S pecimen Blood 10/20/2023 8:48 PM CDT 10/20/2023 8:51 PM CDT us Tiago Kerr MD LAB BLOOD ORDERABLES Final Res ult [facility] ([place]) 1 [facility] Department [place] [address] * (ABNORMAL) CBC with auto differential (10/20/2023 8:48 PM CDT) WBC 6.7 3.8 - 9.9 K/cumm Hgb 13.3 11.9 - 15.5 g/dL [facility] ([place]) Hct 41.7 35.6 - 45.5 % [facility] ([place]) Plt 234 150 - 400 K/cumm [facility] ([place]) MPV 9.5 9.1 - 12.3 fL [facility] ([place]) RBC 4.97 3.90 - 5.20 M/cumm [facility] ([place]) MCV 83.9 81.3 - 96.4 fL [facility] ([place]) MCH 26.8(L) 27.1 - 33.3 pg [facility] ([place]) MCHC 31.9(L) 32.3 - 35.7 g/dL [facility] ([place]) RDW CV 13.2 11.1 - 14.9 % [facility] ([place]) RDW SD 40.1 35.7 - 48.1 fL [facility] ([place]) NRBC abs 0.00 0.00 - 0.01 K/cumm [facility] ([place]) Blood 10/20/2023 8:48 PM CDT 10/20/2023 8:51 PM CDT us Tiago Kerr MD LAB BLOOD ORDERABLES Final Res ult JOSE MARCELINO ([place]) 1 [facility] Department [place] [address] documented in this encounter Visit Diagnoses Diagnosis Weakness- Primary Other malaise and fatigue Nausea and vomiting, unspecified vomiting type documented in this encounter Care Teams Cement Contractor Relationship Specialty Start Date End Date Carmelita Olivera MD [address] [facility] [place] [address] PCP - General Family Medicine 09/03/23 Brian Madera MD [address] [place] [address] Consulting Physician Neurology 04/02/22 documented as of this encounter
--- OUTSIDE RECORDS SUMMARY | 2024-03-31 14:20 | XMS_ITS | Encounter Summary ---
Author Organization [facility] Healthcare Address [address] [place] [address] Care Team Providers Care Ladler Name Role Phone Brian Madera MD Unavailable [phone] Carmelita Olivera MD Primary Care Provide r Encounter Details Date Type Department Care Team (Late st Contact Info) Description 09/03/2023 9:45 AM CDT Lab [address] Type 2 diabetes mellitus with hyperglycemia, without long-term current use of insulin ([facility]) ([facility]) Social History Tobacco Use Types Packs/Day Years [...] on file Legal Sex Female 8:45 PM CUSTOMER EXPERIENCE STRATEGIST Gender Identity Female 04/25/2021 2:46 PM CUSTOMER EXPERIENCE STRATEGIST Sexual Orientation Straight 04/25/2021 2: 46 PM CUSTOMER EXPERIENCE STRATEGIST documented as of this encounter Plan of Treatment Not on file documented as of this encounter Procedures Procedure Name Priority Date/Time Associated Diagnosis Comments HEMOGLOBIN A1C Routine 09/03/2023 9:42 AM CDT Type 2 diabetes mellitus with hyperglycemia, without long-term current use of insulin ([facility]) (HCC) documented in this encounter Results * (ABNORMAL) [...] children were not included. ?? (Diabetes Care 31:8826-7703, 2007). ??The eAG is not equivalent to a fasting glucose. Blood 09/03/2023 9:42 AM CDT 09/03/2023 10:23 AM CDT Carmelita Olivera MD LAB BLOOD ORDERABLES Final Result JOSE MARCELINO ([place]) 1 [facility] Department [place] [address] documented in this encounter Visit Diagnoses Diagnosis Type 2 diabetes mellitus with hyperglycemia, without long-term current use of insulin ([facility]) documented in this encounter Care Teams Ladler Relationship Specialty Start Date End Date Carmelita Olivera MD [address] [facility] [address] [place] [address] PCP - General Family Medicine 09/03/23 Brian Madera MD [address] [facility] [address] [place] [address] Consulting Physician Neurology 04/02/22 documented as of this encounter
--- OUTSIDE RECORDS SUMMARY | 2024-03-31 14:20 | XMS_ITS | Encounter Summary ---
Author Organization [facility] Healthcare Address [address] [place] [address] Care Team Providers Care Electronic Publisher Name Role Phone Jocelynn Coy DO Primary Care Provider [phone] Brian Madera MD Unavailable [phone] Reason for Visit * Reason Onset Date Comments Referral Request 07/11/2023 Encounter Details Date Type Department Care Team (Late st Contact Info) Description 07/11/2023 Telephone [facility] Primary Care at [address] [place] [address] Jocelynn Coy DO [address] [facility] [address] M[address] [place] [address] Referral Request Social History Tobacco Use Types [...] on file Legal Sex Female 8:45 PM CUT OFF OPERATOR SCORER Gender Identity Female 04/25/2021 2:46 PM CUT OFF OPERATOR SCORER Sexual Orientation Straight 04/25/2021 2: 46 PM CUT OFF OPERATOR SCORER documented as of this encounter Miscellaneous Notes * Telephone Encounter - Ivette Davenport - 07/11/2023 9:49 AM CDT Referral placed in Essence and faxed to the number provided. * Telephone Encounter - Kathia Tellez - 07/11/2023 9:14 AM CDT Referral Provider Name (if patient is seeing a nurse practitioner or physician title assistant, list the REGIONAL DEDICATED TRUCK DRIVER/PA, but also their collaborating doctor): Brian Madera M.D. 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 Yes Additional Comments: Marking high priority patients appointment had to moved up to tomorrow. Requested new referral. Does message need to be routed? Yes-Action Needed documented in this encounter Plan of Treatment Not on file documented as of this encounter Visit Diagnoses Not on filedocumented in this encounter Additional Health Concerns Infection Onset Date Last Indicated Resolved Time COVID: Recovered Comment:Added based on recent COVID infection. 05/01/2023 05/03/2023 07/30/2023 3:06 AM C DT documented as of this encounter Care Teams Electronic Publisher Relationship Specialty Start Date End Date Jocelynn Coy DO PCP - General Family Medicine 06/10/17 09/02/23 Brian Madera MD [address] [place] [address] Consulting Physician Neurology 04/02/22 documented as of this encounter
--- OUTSIDE RECORDS SUMMARY | 2024-03-31 14:20 | XMS_ITS | Encounter Summary ---
Author Organization [facility] Healthcare Address [address] [place] [address] Care Team Providers Care Obiee Report Developer Name Role Phone Jocelynn Coy DO Primary Care Provider [phone] Brian Madera MD Unavailable [phone] Reason for Visit * Reason Comments Alzheimer's Disease Hallucinations Encounter Details Date Type Department Care Team (Late st Contact Info) Description 07/17/2023 10:00 AM CDT Office Visit [facility] Primary Care at [address] [place] [address] Jocelynn Coy DO [address] [facility] [place] [address] Generalized anxiety disorder (Primary Dx); 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) Social History Tobacco Use Types [...] on file Legal Sex Female 8:45 PM WEAVER HAND Gender Identity Female 04/25/2021 2:46 PM WEAVER HAND Sexual Orientation Straight 04/25/2021 2: 46 PM WEAVER HAND documented as of this encounter Last Filed Vital Signs Vital Sign Reading Time Taken Comments Blood Pressure 118/62 07/17/2023 10:04 AM CDT Pulse 55 07/17/2023 10:04 AM CDT Temperature 36.3 ??C (97.4 ??F) 07/17/2023 1 0:04 AM CDT Respiratory Rate 16 07/17/2023 10:0 4 AM CDT Oxygen Saturation 100% 07/17/2023 10: 04 AM CDT Inhaled Oxygen Concentration - - Weight 56.2 kg (123 lb 14.4 oz) 024 10:04 AM CDT Height 149.9 cm (4' 11 ) 07/17/2023 10: 04 AM CDT Body Mass Index 25.02 07/17/2023 10:04 AM CDT documented in this encounter Patient Instructions * Patient Instructions* Jocelynn Coy, DO - 07/17/2023 10:00 AM CDT Health Maintenance Topics with due status: Overdue Topic Date Due Dilated Eye Exam Never done Hepatitis B Screening Never done Zoster Vaccine Never done Covid-19 Vaccine 12/14/2022 Thanks for coming in today! My medical records library professor and I are thankful you have trusted us with your care, and hope that you received EXCELLENT care today! Although some conditions may not allow immediate improvement, I aim to always make you feel a little better leaving, than when you came in. [place] not hesitate to call, if you have any questions or concerns, at [phone]. You may receive a phone call, text, MYCHART message, or e-mail asking you to take a survey about your care today. We would love to hear your feedback on how EXCELLENT your care was today! Wishing you better health, always! Dr. Jocelynn Coy * Attachments The following attachments cannot be sent through Care Everywhere. * Generalized Anxiety Disorder (Seed [place]elle[place]) (Russian) documented in this encounter Progress Notes * Jocelynn Coy DO - 07/17/2023 10:00 AM CDT Images from the original note were not included. Subjective/Objective Patient ID: Annita Bose is a 82 y.o. female. Chief Complaint Chief Complaint Patient presents with Alzheimer's Disease Hallucinations HPI Patient started having hallucinations after zamzam COVID - 19 in April. She is here today with her daughter. Her daughter gives most of the HPI. This is her 2 nd visit to the ER since the new year for the hallucinations. Patient and daughter reports that Mrs. Ariza's anxiety is worsening. She is here for f/u today after having her lorazepam increased to 0.5 mg qam and 1 mg qpm. Review of Systems Constitutional: Negative for fever. Respiratory: Negative for shortness of breath. Cardiovascular: Negative for chest pain and palpitations. Gastrointestinal: Negative for abdominal pain. Neurological: Negative for dizziness. Psychiatric/Behavioral: The patient is nervous/anxious. All other systems reviewed and are negative. Vitals: 07/17/23 1004 BP: 118/62 BP Location: Left arm Patient Position: Sitting Pulse: 55 Resp: 16 Temp: 36.3 ??C (97.4 ??F) SpO2: 100% Weight: 56.2 kg (123 lb 14.4 oz) Height: 149.9 cm (4' 11 ) Body mass index is 25.02 kg/m??. Physical Exam Vitals and nursing note reviewed. Constitutional: Appearance: Normal appearance. HENT: Head: Normocephalic and atraumatic. Eyes: General: No scleral icterus. Extraocular Movements: Extraocular movements intact. Conjunctiva/sclera: Conjunctivae normal. Cardiovascular: Rate and Rhythm: Normal rate and regular rhythm. Heart sounds: Normal heart sounds. Pulmonary: Effort: Pulmonary effort is normal. No respiratory distress. Breath sounds: Normal breath sounds. No wheezing. Abdominal: General: Bowel sounds are normal. Palpations: Abdomen is soft. Tenderness: There is no abdominal tenderness. Neurological: Mental Status: She is alert. Psychiatric: Attention and Perception: Attention normal. Mood and Affect: Mood is anxious. Speech: Speech normal. Behavior: Behavior normal. Thought Content: Thought content normal. Thought content does not include homicidal or suicidal ideation. Thought content does not include homicidal or suicidal plan. Diagnoses and all orders for this visit: Generalized anxiety disorder (Primary) Assessment & Plan: Clinically improved, continue current prescription medications, lorazepam. 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 Jocelynn Coy DO This note is dictated and transcribed by AVOB Direct Software. Fudge Candy Maker variances may occur. Despite proofreading, typographical errors may occur. 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 * Assessment & Plan Note - Jocelynn Coy DO - 07/31/2023 3:45 PM CDT Associated Problem(s): Generalized anxiety disorder Clinically improved, continue current prescription medications, lorazepam. 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 05/01/2023 05/03/2023 07/30/2023 3:06 AM C DT documented as of this encounter Care Teams Obiee Report Developer Relationship Specialty Start Date End Date Zbigniew Jocelynnjaylan Cintron DO PCP - General Family Medicine 06/10/17 09/02/23 Brian Madera MD [address] [place] [address] [address] [place] [address] Consulting Physician Neurology 04/02/22 documented as of this encounter
--- OUTSIDE RECORDS SUMMARY | 2024-03-31 14:20 | XMS_ITS | Encounter Summary ---
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) Social History [...] on file Legal Sex Female 8:45 PM FAMILY HELPER Gender Identity Female 04/25/2021 2:46 PM FAMILY HELPER Sexual Orientation Straight 04/25/2021 2: 46 PM FAMILY HELPER documented as of this encounter Last Filed Vital Signs Vital Sign Reading Time Taken Comments Blood Pressure 116/75 07/12/2023 10:12 AM CDT Pulse 73 07/12/2023 10:12 AM CDT Temperature - - Respiratory Rate - - Oxygen Saturation 99% 07/12/2023 10:12 AM CDT Inhaled Oxygen Concentration - - Weight 55.8 kg (123 lb) 07/12/2023 10:12 AM CDT Height 149.9 cm (4' 11 ) 07/12/2023 10:12 AM CDT Body Mass Index 24.84 07/12/2023 10:12 AM CDT documented in this encounter Ordered Prescriptions Prescription Sig Dispense Quantity Refills Last Filled Start Date End Date donepeziL (ARICEPT) 5 mg tablet Take 1 tablet (5 mg total) by mouth nightly 30 tablet 5 07/12/2023 4 documented in this encounter Progress Notes * Brian Madera MD - 07/12/2023 10:00 AM CDT Subjective/Objective Patient ID: Annita Bose is a 82 y.o. female. Chief Complaint I am seeing this 82 y.o. female in consultation requested by Dr. Jocelynn Coy DO for dementia. HPI For details, see 11/17/2021 note. Since last visit on 03/18/2023 with Neurology PLATFORM MILL SUPERVISOR, patient reported that her memory has been getting worse. Grandson and girlfriend reported that patient has been getting agitated and confused sometimes. She saw children who were not there. She was scared sometimes because of visual hallucination. She still has significant memory problem. She has been on memantine 10 mg b.i.d. and tolerated well. Past medical history: Hypertension Hyperlipidemia Cataract Allergies Allergen Reactions Quetiapine Hallucinations Current Outpatient Medications Medication Sig Dispense Refill amLODIPine (NORVASC) 10 mg tablet Take 1 tablet (10 mg total) by mouth nightly 90 tablet 3 atorvastatin (LIPITOR) 20 mg tablet Take 1 tablet (20 mg total) by mouth nightly 90 tablet 3 blood glucose diagnostic strip Use one strip to monitor home blood sugars daily. 100 each 3 blood-glucose meter kit 1 Device daily 1 each 0 coenzyme Q10 100 mg capsule Take 1 capsule (100 mg total) by mouth daily lancets 31 gauge misc 1 Device daily 100 each 3 lisinopriL (PRINIVIL,ZESTRIL) 2.5 mg tablet Take 1 tablet (2.5 mg total) by mouth daily 90 tablet 3 LORazepam (ATIVAN) 0.5 mg tablet Take 1 tab qam and 2 tab qpm prn anxiety. 90 tablet 5 memantine (NAMENDA) 10 mg tablet TAKE 1 TABLET BY MOUTH TWICE DAILY 180 tablet 1 metFORMIN XR (GLUCOPHAGE XR) 500 mg 24 hr tablet Take 1 tablet (500 mg total) by mouth daily with breakfast 90 tablet 3 omega-3 fatty acids 1,000 mg capsule Take by mouth sodium chloride (TRISTAN 128) 5 % ophthalmic solution Administer 1 drop into both eyes as needed donepeziL (ARICEPT) 5 mg tablet Take 1 tablet (5 mg total) by mouth nightly 30 tablet 5 No current facility-administered medications for this visit. has a current medication list which includes the following prescription(s): amlodipine, atorvastatin, blood glucose diagnostic, blood-glucose meter, coenzyme q10, lancets, lisinopril, lorazepam, memantine, metformin xr, omega-3 fatty acids, sodium chloride, and donepezil. Family History Problem Relation Age of Onset Stomach cancer Sister Social History Tobacco Use Smoking status: Never Smokeless tobacco: Never Substance and Sexual Activity Drug use: No Sexual activity: None Alcohol Use: Not At Risk (03/05/2023) AUDIT-C Frequency of Alcohol Consumption: Never Average Number of Drinks: Patient does not drink Frequency of Binge Drinking: Never BP 116/75 Pulse 73 Ht 149.9 cm (4' 11 ) Wt 55.8 kg (123 lb) SpO2 99% BMI 24.84 kg/m?? Physical Exam Mental status: alert, speech [...] requested by Dr. Jocelynn Coy DO for dementia and new hallucination. 1. Memory loss: 03/18/2023 [place] cognitive assessment today showed [place] cognitive assessment 14/30 (visuospatial/executive -4, naming -2, attention -4, language -2, delayed recall -5, orientation -1). CSF Alzheimer's disease biomarker is supportive diagnosis of Alzheimer's dementia. Exelon patch caused skin irritation. 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 b.i.d. Hallucination: 1. Discussed with family about the fact that medication for hallucination normally will short life spine. Well leave it alone without treatment unless the hallucination cause significant disturbance to patient or patient's family. Past investigations: 1. 01/17/2022 MRI of the [...] Phospho tau 24.5 (<=21.7 pg/mL) 3. 11/17/2021 [place] cognitive assessment 15/30 (visuospatial/executive -4, naming -1, attention -4, language -2, delayed recall -5) 4. 08/10/2022- [place] cognitive assessment today showed [place] cognitive assessment 15/30 (visuospatial/executive -4, naming -1, attention -4, language - 2, delayed recall -5, orientation -1). 5. 03/18/2023 [place] cognitive assessment today showed [place] cognitive assessment 14/30 (visuospatial/executive -4, naming -2, attention -4, language - 2, delayed recall -5, orientation -1). Return in about 6 months (around 01/12/2024). 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 05/01/2023 05/03/2023 07/30/2023 3:06 AM C DT documented as of this encounter Care Teams Wildlife Veterinarian Relationship Specialty Start Date End Date Jocelynn Coy DO PCP - General Family Medicine 06/10/17 09/02/23 Brian Madera MD [address] [place] [address] [place] [address] Consulting Physician Neurology 04/02/22 documented as of this encounter
--- OUTSIDE RECORDS SUMMARY | 2024-03-31 14:20 | XMS_ITS | Encounter Summary ---
Author Organization [facility] Healthcare Address [address] [place] [address] Care Team Providers Care Unishear Operator Name Role Phone Jocelynn Coy Primary Care Provider [phone] Brian Madera MD Unavailable [phone] Reason for Visit * Reason Comments Successful Phone Call Encounter Details Date Type Department Care Team (Late st Contact Info) Description 06/14/2023 [place] ED Outreach [facility] Accountable Care Organization [address] [place] [address] Romi Lance MA [address] [place] [address] [address] [place] [address] Social History Tobacco Use Types Packs/Day Years [...] on file Legal Sex Female 8:45 PM STORE PROTECTION SPECIALIST Gender Identity Female 04/25/2021 2:46 PM STORE PROTECTION SPECIALIST Sexual Orientation Straight 04/25/2021 2: 46 PM STORE PROTECTION SPECIALIST documented as of this encounter Progress Notes * Romi Lance MA - 06/14/2023 10:28 AM CST Care Light Equipment Operator contacted patient regarding recent ED visit at [facility] on 06/13/23 for Hallucinations . Status of Reason for ED Visit - Same Status Details: - Spoke with Toyin andrade. She reports pt is fine. She had fall this morning. Hit head/eye area on dinner stand. Pt reports doing okay. She fell due to trying to catch the baby . Denies being on blood thinner. CC discussed what to watch for over wknd due to head injury. She is beingclosely monitored by family and house cameras. Has pcp appt on Saturday. Discharge Instructions Reviewed - Yes Details: - Patient confirmed they received their discharge paperwork and did not have any further questions. Medication Reconciliation Completed - Yes Details: - ED Follow-Up Appointment - 06/17/2023 Details: - Patient aware Patient educated about same day sick appts at PCP office and when to utilize office vs urgent care vs ED. Pt verbalized understanding of information presented. No additional needs identified at this time. Provided my contact information for future needs. JENNY Root [facility] [phone] E PROTECTION SPECIALIST documented in this encounter Plan of Treatment Not on file documented as of this encounter Visit Diagnoses Not on filedocumented in this encounter Additional Health Concerns Infection Onset Date Last Indicated Resolved Time COVID: Recovered Comment:Added based on recent COVID infection. 05/01/2023 05/03/2023 07/30/2023 3:06 AM C DT documented as of this encounter Care Teams Unishear Operator Relationship Specialty Start Date End Date Jocelynn Coy DO PCP - General Family Medicine 06/10/17 09/02/23 Brian Madera MD [address] [facility] [address] [place] [address] [address] Consulting Physician Neurology 04/02/22 documented as of this encounter
--- OUTSIDE RECORDS SUMMARY | 2024-03-31 14:20 | XMS_ITS | Encounter Summary ---
Author Organization [facility] Healthcare Address [address] [place] [address] Care Team Providers Care Tax Associate Attorney Name Role Phone Jocelynn Coy DO Primary Care Provider [phone] Brian Madera MD Unavailable [phone] Encounter Details Date Type Department Care Team (Late st Contact Info) Description 06/28/2023 Telephone [facility] Medical Group Primary Care at [address] [place] [address] Jocelynn Coy DO [address] [facility] [place] [address] Social History Tobacco Use Types Packs/Day Years [...] on file Legal Sex Female 8:45 PM SUPERVISOR BILLPOSTING Gender Identity Female 04/25/2021 2:46 PM SUPERVISOR BILLPOSTING Sexual Orientation Straight 04/25/2021 2: 46 PM SUPERVISOR BILLPOSTING documented as of this encounter Miscellaneous Notes * Telephone Encounter - Finesse Demarco - 06/28/2023 10:23 AM CDT PSR had a successful outreach with the pt daughter Toyin, to r/s 09/03/23 appt time from 9:15AM to9:00AM. Pt daughter communicated understanding. -jg documented in this encounter Plan of Treatment Not on file documented as of this encounter Visit Diagnoses Not on filedocumented in this encounter Additional Health Concerns Infection Onset Date Last Indicated Resolved Time COVID: Recovered Comment:Added based on recent COVID infection. 05/01/2023 05/03/2023 07/30/2023 3:06 AM C DT documented as of this encounter Care Teams Tax Associate Attorney Relationship Specialty Start Date End Date Jocelynn Coy DO PCP - General Family Medicine 06/10/17 09/02/23 Brian Madera MD [address] [facility] [place] [address] Consulting Physician Neurology 04/02/22 documented as of this encounter
--- OUTSIDE RECORDS SUMMARY | 2024-03-31 14:21 | XMS_ITS | Encounter Summary ---
Author Organization [facility] Medical Group Address [address] [place] [address] Care Team Providers Care Helper Teacher Name Role Phone Jocelynn Coy Primary Care Provider [phone] Brian Madera MD Unavailable [phone] Reason for Visit * Reason Onset Date Comments ACO Quality Outreach 09/17/2022 Dm lab Encounter Details Date Type Department Care Team (Late st Contact Info) Description 09/17/2022 Telephone [facility] Accountable Care Organization [address] [place] [address] Tatum Caldwell [address] [place] [address] [address] ACO Quality Outreach (Dm lab ) Social History Tobacco Use Types Packs/Day Years Used Date Smoking Tobacco: Never Smokeless Tobacco: Never Alcohol Use Standard Drinks/Week Comments No 0 (1 standard drink = 0.6 oz pur e alcohol) PHQ-2 Answer Date Recorded PHQ-2 Total Score (If total score is 3 or more points, staff should administer the PHQ-9) 1 04/02/2022 Comments Unknown Sex and Gender Information Value Date Recorded Sex Assigned at Not on file Legal Sex Female 8:45 PM COORDINATOR OF ONLINE PROGRAMS Gender Identity Female 04/25/2021 2:46 PM COORDINATOR OF ONLINE PROGRAMS Sexual Orientation Straight 04/25/2021 2: 46 PM COORDINATOR OF ONLINE PROGRAMS documented as of this encounter Miscellaneous Notes * Telephone Encounter - Tatum Caldwell - 09/17/2022 8:11 AM CDT Patient has been identified by their insurance plan to have a KED gap in care. Chart has been scrubbed and Diabetic labs have been ordered and pended. Ordered labs have been added to appointment note.. Tatum Caldwell Patient Outreach [employer] Social Studies Tutor [facility]- [facility]CO [phone] documented in this encounter Plan of Treatment Not on file documented as of this encounter Visit Diagnoses Not on filedocumented in this encounter Care Teams Helper Teacher Relationship Specialty Start Date End Date Jocelynn Coy DO PCP - General Family Medicine 06/10/17 09/02/23 Brian Madera MD [address] [facility] [place] [address] Consulting Physician Neurology 04/02/22 documented as of this encounter
--- OUTSIDE RECORDS SUMMARY | 2024-03-31 14:21 | XMS_ITS | Encounter Summary ---
Author Organization [facility] Address [address] [place] [address] Care Team Providers Care Interactive Account Manager Name Role Phone Jocelynn Coy DO Primary Care Provider [phone] Brian Madera MD Unavailable [phone] Reason for Visit * Reason Comments Hypertension Hyperlipidemia Diabetes Encounter Details Date Type Department Care Team (Late st Contact Info) Description 09/20/2022 4:15 PM CDT Office Visit [facility] Primary Care at [address] [place] [address] Jocelynn Coy DO [address] [facility] [address] [address] Hypertension associated with diabetes (HCC) (Primary Dx); Hyperlipidemia associated with type 2 diabetes mellitus (HCC); Type 2 diabetes mellitus with hyperglycemia, without long-term current use of insulin (CMS/HCC) (HCC); Generalized anxiety disorder; 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) Social History Tobacco Use Types Packs/Day Years Used Date Smoking Tobacco: Never Smokeless Tobacco: Never Alcohol Use Standard Drinks/Week Comments No 0 (1 standard drink = 0.6 oz pur e alcohol) PHQ-2 Answer Date Recorded PHQ-2 Total Score (If total score is 3 or more points, staff should administer the PHQ-9) 0 09/20/2022 Comments No Sex and Gender Information Value Date Recorded Sex Assigned at Not on file Legal Sex Female 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 Gender Identity Female 04/25/2021 2:46 PM SETTER MACHINE Sexual Orientation Straight 04/25/2021 2: 46 PM SETTER MACHINE documented as of this encounter Last Filed Vital Signs Vital Sign Reading Time Taken Comments Blood Pressure 132/72 09/20/2022 4:14 PM CDT Pulse 71 09/20/2022 4:14 PM CDT Temperature 36.6 ??C (97.8 ??F) 09/20/2022 4:14 PM CD T Respiratory Rate 18 09/20/2022 4:14 PM CDT Oxygen Saturation 97% 09/20/2022 4:14 PM CDT Inhaled Oxygen Concentration - - Weight 57.2 kg (126 lb 1.6 oz) 09/20/2022 4:14 P M CDT Height 149.9 cm (4' 11.02 ) 09/20/2022 4:14 PM C DT Body Mass Index 25.46 09/20/2022 4:14 PM CDT documented in this encounter Patient Instructions * Patient Instructions* Jocelynn Coy, - 09/20/2022 4:15 PM CDT Images from the original note were not included. Patient Education DASH Eating Plan RECREATIONAL THERAPY AIDE: The DASH (Dietary Approaches to Stop Hypertension) Eating Plan is designed to help prevent or lowerhigh blood pressure. It can also help to lower LDL (bad) cholesterol and decrease your risk for heart disease. The plan is low in sodium, sugar, unhealthy fats, and total fat. It is high in potassium, calcium, magnesium, and fiber. These nutrients are added when you eat more fruits, vegetables, andwhole grains. With the DASH eating plan, you need to eat a certain number of servings from each food group. This will help you get enough of certain nutrients and limit others. The amount of servingsyou should eat depends on how many calories you need. Your dietitian can help you create meal planswith the right number of servings for each food group. What you need to know about sodium: Your dietitian will tell you how much sodium is safe for you tohave each day. People with high blood pressure should have no more than 1,500 to 2,300 mg of sodiumin a day. A teaspoon (tsp) of salt has 2,300 mg of sodium. This may seem like a difficult goal, butsmall changes to the foods you eat can make a big difference. Your healthcare provider or dietitian can help you create a meal plan that follows your sodium limit. Read food labels. Food labels can help you choose foods that are low in sodium. The amount of sodium is listed in milligrams (mg). The % Daily Value (DV) column tells you how much of your daily needsare met by 1 serving of the food for each nutrient listed. Choose foods that have less than 5% of the DV of sodium. These foods are considered low in sodium. Foods that have 20% or more of the DV of s odium are considered high in sodium. Avoid foods that have more than 300 mg of sodium in each serving. Choose foods that say low-sodium, reduced-sodium, or no salt added on the food label. Limit added salt. Do not salt food at the table if you add salt when you cook. Use herbs and spices, such as onions, garlic, and salt-free seasonings to add flavor. Try lemon or wampanoag juice or vinegarto add a tart flavor. Use hot peppers or a small amount of hot pepper sauce to add a spicy flavor. Limit foods high in added salt, such as the following: Seasonings made with salt, such as garlic salt, celery salt, onion salt, seasoned salt, meat tenderizers, and monosodium glutamate (MSG) Miso soup and canned or dried soup mixes Regular soy sauce, barbecue sauce, teriyaki sauce, steak sauce, Worcestershire sauce, and most flavored vinegars Snack foods, such as salted chips, popcorn, pretzels, pork rinds, salted crackers, and salted nuts Frozen foods, such as dinners, entrees, vegetables with sauces, and breaded meats Ask about salt substitutes. Ask your healthcare provider if you may use salt substitutes. Some saltsubstitutes have ingredients that can be harmful if you have certain health conditions. Choose foods carefully at restaurants. Meals from restaurants, especially fast food restaurants, are often high in sodium. Some restaurants have nutrition information that tells you the amount of sodium in their foods. Ask to have your food prepared with less, or no salt. What you need to know about fats: Healthy fats include unsaturated fats and omega-3 fatty acids. Unhealthy fats include saturated fats and trans fats. Include healthy fats, such as the following: Cooking oils, such as soybean, canola, olive, or sunflower Fatty fish, such as salmon, tuna, mackerel, or sardines Flaxseed oil or ground flaxseed ?? cup of cooked beans, such as black beans, kidney beans, or conner beans 1?? ounces of low-sodium nuts, such as almonds or walnuts Low-sugar, low-sodium peanut butter Seeds such as marcio seeds or sunflower seeds Limit or do not have unhealthy fats, such as the following: Foods that contain fat from animals, such as fatty meats, whole milk, butter, and cream Shortening, stick margarine, palm oil, and coconut oil Full-fat or creamy salad dressing Creamy soup Crackers, chips, and baked goods made with margarine or shortening Foods that are fried in unhealthy fats Gravy and sauces, such as Fer or cheese sauces What you need to know about carbohydrates (carbs): All carbs break down into sugar. Complex carbs contain more fiber than simple carbs. This means complex carbs go into the bloodstream more slowly and cause less of a blood sugar spike. Try to include more complex carbs and fewer simple carbs. Include complex carbs, such as the followin slice of whole-grain bread 1 ounce of dry cereal that does not contain added sugar ?? cup of cooked oatmeal 2 ounces of cooked whole-grain pasta ?? cup of cooked brown rice Limit or do not have simple carbs, such as the following: Baked goods, such as doughnuts, pastries, and cookies Mixes for cornbread and biscuits White rice and pasta mixes, such as boxed macaroni and cheese Instant and cold cereals that contain sugar Jelly, jam, and ice cream that contain sugar Condiments such as ketchup Drinks high in sugar, such as soft drinks, lemonade, and fruit juice What you need to know about vegetables and fruits: Vegetables and fruits can be fresh, frozen, or canned. If possible, try to choose low-sodium canned options. Include a variety of vegetables and fruits, such as the followin medium apple, pear, or peach (about ?? cup chopped) ?? small banana ?? cup berries, such as blueberries, strawberries, or blackberries 1 cup of raw leafy greens, such as lettuce, spinach, kale, or herve greens ?? cup of frozen or canned (no added salt) vegetables, such as green beans ?? cup of fresh, frozen, or canned fruit (canned in light syrup or fruit juice) ?? cup of vegetable or fruit juice Limit or do not have vegetables and fruits made in the following ways: Frozen fruit such as cherries that have added sugar Fruit in cream or butter sauce Canned vegetables that are high in sodium Sauerkraut, pickled vegetables, and other foods prepared in brine Fried vegetables or vegetables in butter or high-fat sauces What you need to know about protein foods: Include lean or low-fat protein foods, such as the following: Poultry (chicken, turkey) with no skin Fish (especially fatty fish, such as salmon, fresh tuna, or mackerel) Lean beef and pork (loin, round, extra lean hamburger) Egg whites and egg substitutes 1 cup of nonfat (skim) or 1% milk 1?? ounces of fat-free or low-fat cheese 6 ounces of nonfat or low-fat yogurt Limit or do not have high-fat protein foods, such as the following: Smoked or cured meat, such as corned beef, mojica, ham, hot dogs, and sausage Canned beans and canned meats or spreads, such as potted meats, sardines, anchovies, and imitation seafood Deli or lunch meats, such as bologna, ham, turkey, and roast beef High-fat meat (T-bone steak, regular hamburger, and ribs) Whole eggs and egg yolks Whole milk, 2% milk, and cream Regular cheese and processed cheese Other guidelines to follow: Maintain a healthy weight. Your risk for heart disease is higher if you are overweight. Your healthcare provider may suggest that you lose weight if you are overweight. You can lose weight by eating fewer calories and foods that have added sugars and fat. The DASH meal plan can help you do this. Decrease calories by eating smaller portions at each meal and fewer snacks. Ask your healthcare provider for more information about how to lose weight. Exercise regularly. Regular exercise can help you reach or maintain a healthy weight. Regular exercise can also help decrease your blood pressure and improve your cholesterol levels. Get 30 minutes or more of moderate exercise each day of the week. To lose weight, get at least 60 minutes of exercise. Talk to your healthcare provider about the best exercise program for you. Limit alcohol. Women should limit alcohol to 1 drink a day. Men should limit alcohol to 2 drinks a day. A drink of alcohol is 12 ounces of beer, 5 ounces of wine, or 1?? ounces of liquor. For more information: National [facility], [facility] and [facility] [address] [address] [place] [address] Phone: Web Address: http://www.nhlbi.nih.gov/health/infoctr/index.htm ?? Copyright [employer] 2021 Information is for End User's use only and may not be sold, redistributed or otherwise used for commercial purposes. All illustrations and images included in CareNotes?? are the copyrighted property of [employer]. or Bio The above information is an care aid only. It is not intended as medical advice for individual conditions or treatments. Talk to your doctor, nurse or pharmacist before following any medical regimen to see if it is safe and effective for you. Health Maintenance Topics with due status: Overdue Topic Date Due Dilated Eye Exam Never done Covid-19 Vaccine 06/12/2021 Foot Exam 01/09/2022 Albumin Creatinine Ratio, Urine 09/04/2022 Thanks for coming in today! My chief medical director and I are thankful you have trusted us with your care, and hope that you received EXCELLENT care today! Although some conditions may not allow immediate improvement, I aim to always make you feel a little better leaving, than when you came in. [place] not hesitate to call, if you have any questions or concerns, at [phone]. You may receive a phone call, text, MYCHART message, or e-mail asking you to take a survey about your care today. We would love to hear your feedback on how EXCELLENT your care was today! Wishing you better health, always! Dr. Jocelynn Coy documented in this encounter Ordered Prescriptions Prescription Sig Dispense Quantity Refills Last Filled Start Date End Date metFORMIN XR (GLUCOPHAGE XR) 500 mg 24 hr tabletIndications: Type 2 diabetes mellitus with hyperglycemia, without long-term current use of insulin (HCC) Take 1 tablet (500 mg total) by mouth daily with breakfast 90 tablet 3 09/20/2022 4 LORazepam (ATIVAN) 0.5 mg tabletIndications: Generalized anxiety disorder Take 1 tablet (0.5 mg total) by mouth as needed for anxiety 30 tablet 5 09/20/2022 3 lisinopriL (PRINIVIL,ZESTRIL) 2.5 mg tabletIndications: Type 2 diabetes mellitus with hyperglycemia, without long-term current use of insulin (HCC),Hypertension associated with diabetes (HCC) Take 1 tablet (2.5 mg total) by mouth daily 90 tablet 3 09/20/2022 4 atorvastatin (LIPITOR) 20 mg tabletIndications: Hyperlipidemia associated with type 2 diabetes mellitus (HCC) Take 1 tablet (20 mg total) by mouth nightly 90 tablet 3 09/20/2022 4 amLODIPine (NORVASC) 10 mg tabletIndications: Hypertension associated with diabetes (HCC) Take 1 tablet (10 mg total) by mouth nightly 90 tablet 3 09/20/2022 4 documented in this encounter Progress Notes * Jocelynn Coy DO - 09/20/2022 4:15 PM CDT Images from the original note were not included. Subjective/Objective Patient ID: Annita Bose is a 82 y.o. female. Chief Complaint Chief Complaint Patient presents with Hypertension Hyperlipidemia Diabetes HPI Patient RTC today for routine f/u on chronic medical conditions. Annita Bose denies any medication side-effects. She is without complaints. Patient is here with her daughter today. They report thatthey will be going on a cruise soon. Review of Systems HENT: Negative for congestion and sore throat. Eyes: Negative for visual disturbance. Respiratory: Negative for cough. Cardiovascular: Negative for leg swelling. Gastrointestinal: Negative for abdominal pain and nausea. Genitourinary: Negative for hematuria. Skin: Negative for rash. All other systems reviewed and are negative. Vitals: 09/20/22 1614 BP: 132/72 BP Location: Left arm Patient Position: Sitting Pulse: 71 Resp: 18 Temp: 36.6 ??C (97.8 ??F) TempSrc: Oral SpO2: 97% Weight: 57.2 kg (126 lb 1.6 oz) Height: 149.9 cm (4' 11.02 ) Body mass index is 25.46 kg/m??. Physical Exam Vitals and nursing note reviewed. Constitutional: Appearance: Normal appearance. She is well-developed. HENT: Head: Normocephalic and atraumatic. Eyes: General: No scleral icterus. Extraocular Movements: Extraocular movements intact. Conjunctiva/sclera: Conjunctivae normal. Neck: Thyroid: No thyromegaly. Cardiovascular: Rate and Rhythm: Normal rate and regular rhythm. Heart sounds: Normal heart sounds. No murmur heard. Pulmonary: Effort: Pulmonary effort is normal. Breath sounds: Normal breath sounds. No wheezing. Abdominal: General: Bowel sounds are normal. Palpations: Abdomen is soft. Tenderness: There is no abdominal tenderness. Musculoskeletal: Cervical back: Normal range of motion and neck supple. Skin: General: Skin is warm and dry. Findings: No erythema or rash. Neurological: General: No focal deficit present. Mental Status: She is alert and oriented to person, place, and time. Psychiatric: Mood and Affect: Mood normal. Behavior: Behavior normal. Thought Content: Thought content normal. Lab Results Component Value Date CHOL 145 04/02/2022 CHOL 121 09/26/2020 CHOL 164 03/24/2020 Lab Results Component Value Date HDL 76 04/02/2022 HDL 60 09/26/2020 HDL 67 03/24/2020 Lab Results Component Value Date LDLCALC 61 04/02/2022 LDLCALC 43 09/26/2020 LDLCALC 79 03/24/2020 LDL 86 11/21/2017 Lab Results Component Value Date TRIG 41 04/02/2022 TRIG 92 09/26/2020 TRIG 92 03/24/2020 Chemistry Component Value Date/Time SODIUM 137 04/02/2022 1552 SODIUM 139 11/21/2017 1516 POTASSIUM 3.8 04/02/2022 1552 POTASSIUM 4.2 11/21/2017 1516 CHLORIDE 101 04/02/2022 1552 CHLORIDE 107 11/21/2017 1516 CO2 28 04/02/2022 1552 CO2 27 11/21/2017 1516 BUNSER 12 04/02/2022 1552 BUNSER 14 11/21/2017 1516 CREATININE 0.68 04/02/2022 1552 CREATININE 0.68 11/21/2017 1516 GLUCOSE 84 04/02/2022 1552 GLUCOSE 97 11/21/2017 1516 Component Value Date/Time CALCIUM 9.3 04/02/2022 1552 CALCIUM 9.5 11/21/2017 1516 ALKPHOS 89 04/02/2022 1552 ALKPHOS 76 11/21/2017 1516 AST 19 04/02/2022 1552 AST 15 11/21/2017 1516 ALT 12 04/02/2022 1552 ALT 13 11/21/2017 1516 BILITOT 0.4 04/02/2022 1552 BILITOT 0.3 11/21/2017 1516 Lab Results Component Value Date HGBA1C 7.3 (H) 04/02/2022 Diagnoses and all orders for this visit: Hypertension associated with diabetes ([facility]) (Primary) Assessment & Plan: Blood pressure at goal less than 140/90, continue current prescription medications, lisinopril. Orders: - amLODIPine (NORVASC) 10 mg tablet; Take 1 tablet (10 mg total) by mouth nightly - lisinopriL (PRINIVIL,ZESTRIL) 2.5 mg tablet; Take 1 tablet (2.5 mg total) by mouth daily - Comprehensive metabolic panel; Future - Lipid panel; Future Hyperlipidemia associated with type 2 diabetes mellitus ([facility]) Assessment & Plan: LDL at goal of less than 100, continue current prescription medications, atorvastatin. Orders: - atorvastatin (LIPITOR) 20 mg tablet; Take 1 tablet (20 mg total) by mouth nightly - Comprehensive metabolic panel; Future - Lipid panel; Future Type 2 diabetes mellitus with hyperglycemia, without long-term current use of insulin ([facility]) (HCC) Assessment & Plan: A1c at goal of less than 8.0, continue current prescription medications, atorvastatin, lisinopril, metformin xr. Orders: - lisinopriL (PRINIVIL,ZESTRIL) 2.5 mg tablet; Take 1 tablet (2.5 mg total) by mouth daily - metFORMIN XR (GLUCOPHAGE XR) 500 mg 24 hr tablet; Take 1 tablet (500 mg total) by mouth daily with breakfast - Comprehensive metabolic panel; Future - Hemoglobin A1c; Future - Albumin Creatinine Ratio, Urine; Future - Lipid panel; Future Generalized anxiety disorder Assessment & Plan: Clinically improved, continue current prescription medications, lorazepam. Orders: - LORazepam (ATIVAN) 0.5 mg tablet; Take 1 tablet (0.5 mg total) by mouth as needed for anxiety 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) Assessment & Plan: Stable. Cont. Current prescription medications, memantine. Jocelynn Coy DO This note is dictated and transcribed by [employer]. Loss Prevention Supervisor variances may occur. Despite proofreading, typographical errors may occur. documented in this encounter Miscellaneous Notes * Assessment & Plan Note - Jocelynn Coy DO - 09/21/2022 7:35 PM CDT Associated Problem(s): Type 2 diabetes mellitus with hyperglycemia, without long-term current use of insulin (HCC) A1c at goal of less than 8.0, continue current prescription medications, atorvastatin, lisinopril, metformin xr. 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 Cont. Current prescription medications, memantine. * Assessment & Plan Note - Jocelynn Coy DO - 09/21/2022 7:34 PM CDT Associated Problem(s): Hypertension associated with diabetes (HCC) Blood pressure at goal less than 140/90, continue current prescription medications, lisinopril. * Assessment & Plan Note - Jocelynn Coy DO - 09/21/2022 7:34 PM CDT Associated Problem(s): Hyperlipidemia associated with type 2 diabetes mellitus (HCC) LDL at goal of less than 100, continue current prescription medications, atorvastatin. * Assessment & Plan Note - Jocelynn Coy DO - 09/21/2022 7:34 PM CDT Associated Problem(s): Generalized anxiety disorder Clinically improved, continue current prescription medications, lorazepam. documented in this encounter Plan of Treatment Not on file documented as of this encounter Visit Diagnoses Diagnosis Hypertension associated with diabetes (HCC)- Primary Unspecified essential hypertension Hyperlipidemia associated with type 2 diabetes mellitus (HCC) Type 2 diabetes mellitus with hyperglycemia, without long-term current use of insulin (HCC) Generalized anxiety disorder 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) documented in this encounter Discontinued Medications Medication Sig Discontinue Reason Start Date End Da te lisinopriL (PRINIVIL,ZESTRIL) 2.5 mg tabletIndications:Type 2 diabetes mellitus with hyperglycemia, without long-term current use of insulin (HCC),Hypertension associated with diabetes (HCC) TAKE 1 TABLET BY MOUTH EVERY DAY Reorder 09/13/2021 09/20/2022 metFORMIN XR (GLUCOPHAGE XR) 500 mg 24 hr tabletIndications:Type 2 diabetes mellitus with hyperglycemia, without long-term current use of insulin (HCC) TAKE 1 TABLET BY MOUTH EVERY DAY WITH BREAKFAST Reorder 09/15/2021 09/20/2022 amLODIPine (NORVASC) 10 mg tabletIndications:Hyper tension associated with diabetes (HCC) Take 1 tablet (10 mg total) by mouth daily Reorder 10/06/2021 09/20/2022 atorvastatin (LIPITOR) 20 mg tabletIndications:Hyper lipidemia associated with type 2 diabetes mellitus (HCC) TAKE 1 TABLET BY MOUTH EVERY DAY Reorder 02/07/2022 09/20/2022 LORazepam (ATIVAN) 0.5 mg tabletIndications:Gener alized anxiety disorder Take 1 tablet (0.5 mg total) by mouth as needed for anxiety Reorder 04/02/2022 09/20/2022 documented as of this encounter Care Teams Interactive Account Manager Relationship Specialty Start Date End Date Jocelynn Coy DO PCP - General Family Medicine 06/10/17 09/02/23 Brian Madera MD [address] [facility] [address] [place]I [facility] [place] [address] Consulting Physician Neurology 04/02/22 documented as of this encounter
--- OUTSIDE RECORDS SUMMARY | 2024-03-31 14:21 | XMS_ITS | Encounter Summary ---
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) Jocelynn Coy DO Phone: tel: fax: Brian Madera MD [address] [place] [address] [address] [place] [address] Phone: tel: fax: Referral ID Status Reason Start Date Expiration Date V isits Requested Visits Authorized [id number] Closed Specialty Services Required 09/04/2021 04/14/2023 12 12 Encounter Details Date Type Department Care Team (Late st Contact Info) Description 03/18/2023 1:30 PM SENIOR ACCOUNT DIRECTOR Office Visit [facility] [address] [facility] [address] [address] [place] [address] Kate Diaz NP [address] [place] [address] [address] [place] [address] 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) (Primary Dx) Social History Tobacco Use Types Packs/Day Years Used Date Smoking Tobacco: Never Smokeless Tobacco: Never Tobacco Cessation:Counseling Given: No Alcohol Use Standard Drinks/Week Comments No 0 [...] points, staff should administer the PHQ-9) 0 03/05/2023 Comments No Sex and Gender Information Value Date Recorded Sex Assigned at Not on file Legal Sex Female 8:45 PM SENIOR ACCOUNT DIRECTOR Gender Identity Female 04/25/2021 2:46 PM SENIOR ACCOUNT DIRECTOR Sexual Orientation Straight 04/25/2021 2: 46 PM SENIOR ACCOUNT DIRECTOR documented as of this encounter Last Filed Vital Signs Vital Sign Reading Time Taken Comments Blood Pressure 110/52 03/18/2023 1:06 PM SENIOR ACCOUNT DIRECTOR Pulse 71 03/18/2023 1:06 PM SENIOR ACCOUNT DIRECTOR Temperature - - Respiratory Rate 16 03/18/2023 1:06 PM SENIOR ACCOUNT DIRECTOR Oxygen Saturation 96% 03/18/2023 1:06 PM SENIOR ACCOUNT DIRECTOR Inhaled Oxygen Concentration - - Weight 57.2 kg (126 lb) 03/18/2023 1:06 PM SENIOR ACCOUNT DIRECTOR Height 149.9 cm (4' 11.02 ) 03/18/2023 1:[address] Body Mass Index 25.44 03/18/2023 1:06 PM SENIOR ACCOUNT DIRECTOR documented in this encounter Progress Notes * Kate Diaz NP - 03/18/2023 1:30 PM CST Subjective/Objective Patient ID: Annita Bose is a 82 y.o. female. Chief Complaint I am seeing this 82 y.o. female in consultation requested by Dr. Jocelynn Coy DO for dementia. Memory Loss For details, see 11/17/2021 note. Since last visit on 08/10/2022, no change with memory per her and daughter's report. She reports when she does not wear her glasses sometimes she thinks she sees another person in the room. She deniesany paranoia or hallucinations. Since last visit had been on memantine 10 mg BID which she is tolerating well. She has significant skin irritation with Exelon patch. Past medical history: Hypertension Hyperlipidemia Cataract No Known Allergies Current Outpatient Medications Medication Sig Dispense Refill [...] LORazepam (ATIVAN) 0.5 mg tablet Take 1 tablet (0.5 mg total) by mouth as needed for anxiety 30 tablet 5 memantine (NAMENDA) 10 mg tablet [...] lorazepam, memantine, metformin xr, omega-3 fatty acids, and sodium chloride. Family History Problem Relation Age of Onset Stomach cancer Sister Social History Tobacco Use Smoking status: Never Smokeless tobacco: Never Substance and Sexual Activity Drug use: No Sexual activity: None Alcohol Use: Not At Risk (03/05/2023) AUDIT-C Frequency of Alcohol Consumption: Never Average Number of Drinks: Patient does not drink Frequency of Binge Drinking: Never BP 110/52 (BP Location: Left arm, Patient Position: Sitting) Pulse 71 Resp 16 Ht 149.9 cm (4'11.02 ) Wt 57.2 kg (126 lb) SpO2 96% BMI 25.44 kg/m?? Physical Exam Mental status: alert, speech fluent, comprehension intact, follow command appropriately Cranial nerve: RENALDO, corneal reflex present. EOMI, VFF by confrontation method. Facial sensations symmetrical. Face symmetrical. Motor: bulk normal, tone normal, pronator drift negative. Strength 5/5. No abnormal movement. Sensation: LT Normal and symmetrical. Gait: Could walk independently Assessment/Plan I am seeing this 81 y.o. female in consultation requested by Dr. Jocelynn Coy DO for dementia. History is kind of limited. 03/18/2023 Rosales cognitive assessment today showed Boss cognitive assessment 14/30 (visuospatial/executive -4, naming -2, attention -4, language -2, delayed recall -5, orientation -1). CSF Alzheimer's disease biomarker is supportive diagnosis of Alzheimer's dementia. Exelon patch caused skin irritation. 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 b.i.d. Review of investigations: 1. 01/17/2022 MRI of the brain [...] Phospho tau 24.5 (<=21.7 pg/mL) 3. 11/17/2021 Boss cognitive assessment 15/30 (visuospatial/executive -4, naming -1, attention -4, language -2, delayed recall -5) 4. 08/10/2022- Rosales cognitive assessment today showed Rosales cognitive assessment 15/30 (visuospatial/executive -4, naming -1, attention -4, language - 2, delayed recall -5, orientation -1). Return in about 6 months (around 09/17/2023). 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
--- OUTSIDE RECORDS SUMMARY | 2024-03-31 14:21 | XMS_ITS | Encounter Summary ---
Author Organization [facility] Healthcare Address [address] [place] [id number] Care Team Providers Care Public Health Program Manager Name Role Phone Jocelynn Coy Primary Care Provider [phone] Brian Madera MD Unavailable [phone] Reason for Visit * Reason Comments Confusion Encounter Details Date Type Department Care Team (Late st Contact Info) Description 04/21/2023 12:49 PM ANIMAL SHELTER SUPERVISOR - 04/21/2023 7:29 PM ANIMAL SHELTER SUPERVISOR Emergency [facility] Emergency Department [address] [place] [address] Gurmeet Church MD [address] [place] [address] [place] [address] Tiago Kerr MD [address] [place] [address] [address] MILLER [address] [place] [id number] Hallucinations (Primary Dx); COVID Discharge Disposition: Discharge to home or self [...] staff should administer the PHQ-9) 0 03/05/2023 Personal Safety Answer Date Recorded Getting School Help Needed Denies 04/21 Comments No Sex and Gender Information Value Date Recorded Sex Assigned at Not on file Legal Sex Female 8:45 PM ANIMAL SHELTER SUPERVISOR Gender Identity Female 04/25/2021 2:46 PM ANIMAL SHELTER SUPERVISOR Sexual Orientation Straight 04/25/2021 2: 46 PM ANIMAL SHELTER SUPERVISOR documented as of this encounter Last Filed Vital Signs Vital Sign Reading Time Taken Comments Blood Pressure 160/68 04/21/2023 6:15 PM ANIMAL SHELTER SUPERVISOR Pulse 63 04/21/2023 4:15 PM ANIMAL SHELTER SUPERVISOR Temperature 36.7 ??C (98.1 ??F) 04/21/2023 12:[address] Respiratory Rate 18 04/21/2023 6:15 PM ANIMAL SHELTER SUPERVISOR Oxygen Saturation 97% 04/21/2023 5:30 PM ANIMAL SHELTER SUPERVISOR Inhaled Oxygen Concentration - - Weight 61.2 kg (135 lb) 04/21/2023 12:46 PM ANIMAL SHELTER SUPERVISOR Height 149.9 cm (4' 11 ) 04/21/2023 12:46 PM ANIMAL SHELTER SUPERVISOR Body Mass Index 27.27 04/21/2023 12:46 PM ANIMAL SHELTER SUPERVISOR documented in this encounter Discharge Instructions * Discharge Instructions* Tiago Kerr MD - 04/21/2023 7:02 PM ANIMAL SHELTER SUPERVISOR Continue home medication , take Tylenol for body aches and fever. AL SHELTER SUPERVISOR * Attachments The following attachments cannot be sent through Care Everywhere. * Coronavirus Disease 2019 (COVID-19)- Overview (Macanese) documented in this encounter Medications at Time [...] without long-term current use of insulin ([facility]) 1 Device daily 100 each 3 10/03/2020 sodium chloride (TRISTAN 128) 5 % ophthalmic solution Administer 1 drop into both eyes as needed 02/27/2023 amLODIPine (NORVASC) 10 mg tabletIndication s:Hypertension associated with diabetes (HCC) Take 1 tablet (10 mg total) by mouth nightly 90 tablet 3 09/20/2022 4 atorvastatin (LIPITOR) 20 mg tabletIndication s:Hyperlipidemia associated with type 2 diabetes mellitus ([facility]) Take 1 tablet (20 mg total) by mouth nightly 90 tablet 3 09/20/2022 4 lisinopriL (PRINIVIL,ZESTRI L) 2.5 mg tabletIndication s:Type 2 diabetes mellitus with hyperglycemia, without long-term current use of insulin ([facility]),Hypertensi on associated with diabetes ([facility]) Take 1 tablet (2.5 mg total) by mouth daily 90 tablet 3 09/20/2022 4 LORazepam (ATIVAN) 0.5 mg tabletIndication s:Generalized anxiety disorder Take 1 tablet (0.5 mg total) by mouth as needed for anxiety 30 tablet 5 03/05/2023 4 memantine (NAMENDA) 10 mg tablet TAKE 1 TABLET BY MOUTH TWICE DAILY 180 tablet 1 11/13/2022 4 metFORMIN XR (GLUCOPHAGE XR) 500 mg 24 hr tabletIndication s:Type 2 diabetes mellitus with hyperglycemia, without long-term current use of insulin ([facility]) Take 1 tablet (500 mg total) by mouth daily with breakfast 90 tablet 3 09/20/2022 4 omega-3 fatty acids 1,000 mg capsule Take by mouth 4 traZODone (DESYREL) 50 mg tabletIndication s:insomnia associated with depression Take 1 tablet (50 mg total) by mouth nightly 5 tablet 04/21/2023 4 documented as of this encounter Ordered Prescriptions Prescription Sig Dispense Quantity Refills Last Filled Start Date End Date traZODone (DESYREL) 50 mg tabletIndications: insomnia associated with depression Take 1 tablet (50 mg total) by mouth nightly 5 tablet 04/21/2023 4 documented in this encounter Discharge Disposition Disposition Code Departure Means Destination Comment s Discharge to home or self care documented in this encounter ED Notes * Gurmeet Church MD - 04/21/2023 1:22 PM CST HPI Chief Complaint Patient presents with ??? Confusion Patient has Alzheimer's dementia. She was recently diagnosed with COVID. She has had symptoms since3 days ago with cough, body aches. Last night she was hallucinating with visual hallucinations. Shewas difficult to settle down. Patient taking Coricidin, ibuprofen and a decongestant. No chest painor shortness of breath. Patient History: Patient Active Problem List Diagnosis Date Noted ??? Nail fungus 03/05/2023 ??? 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) 03/30/2021 ??? Decreased hearing of both ears 10/13/2020 ??? Type 2 diabetes mellitus with hyperglycemia, without long-term current use of insulin ([facility]) 10/03/2020 ??? Body mass index (BMI) of 25.0 to 25.9 in adult 09/03/2018 ??? Hypertension associated with diabetes ([facility]) 06/07/2017 ??? Hyperlipidemia associated with type 2 diabetes mellitus ([facility]) 06/07/2017 ??? Generalized anxiety disorder 06/07/2017 No past medical history on file. Past Surgical History: Procedure Laterality Date ??? CATARACT EXTRACTION Bilateral 09/07/2021 09/22/2021 ??? FL FLUORO GUIDED LUMBAR PUNCTURE Right 01/17/2022 Family History Problem Relation Age of Onset ??? Stomach cancer Sister Social History Tobacco Use ??? Smoking status: Never ??? Smokeless tobacco: Never Substance and Sexual Activity ??? Alcohol use: No ??? Drug use: No ??? Sexual activity: Not on file Social History Social History Narrative ??? Not on file Review of Systems Review of Systems Constitutional: Negative for chills and fever. HENT: Negative for congestion, rhinorrhea and sore throat. Eyes: Negative for pain. Respiratory: Positive for cough. Negative for shortness of breath. Cardiovascular: Negative for chest pain and leg swelling. Gastrointestinal: Negative for abdominal pain, diarrhea, nausea and vomiting. Genitourinary: Negative for difficulty urinating. Musculoskeletal: Positive for myalgias. Skin: Negative for rash. Neurological: Negative for dizziness and headaches. Psychiatric/Behavioral: Negative for behavioral problems. Physical Exam ED Triage Vitals Temp Pulse Resp BP SpO2 04/21/23 1246 04/21/23 1246 04/21/23 1246 04/21/23 1246 04/21/23 1246 36.7 ??C (98.1 ??F) 68 20 109/45 100 % Temp src Heart Rate Source Patient Position BP Location FiO2 (%) 04/21/23 1246 04/21/23 1258 -- -- -- Temporal Monitor Height Height Method Weight Weight Method 04/21/23 1246 04/21/23 1246 04/21/23 1246 04/21/23 1246 1.499 m (4' 11 ) Stated 61.2 kg (135 lb) Stated Physical Exam Vitals and nursing note reviewed. Constitutional: General: She is not in acute distress. Appearance: She is well-developed. HENT: Head: Normocephalic and atraumatic. Eyes: Conjunctiva/sclera: Conjunctivae normal. Cardiovascular: Rate and Rhythm: Normal rate and regular rhythm. Heart sounds: No murmur heard. Pulmonary: Effort: Pulmonary effort is normal. No respiratory distress. Breath sounds: Normal breath sounds. Abdominal: Palpations: Abdomen is soft. Tenderness: There is no abdominal tenderness. Musculoskeletal: General: No swelling. Cervical back: Neck supple. Skin: General: Skin is warm and dry. Capillary Refill: Capillary refill takes less than 2 seconds. Neurological: Mental Status: She is alert. She is disoriented. Comments: Disoriented to place, date Psychiatric: Mood and Affect: Mood normal. Labs Reviewed INFLUENZA A/B, RSV, AND COVID-19 PCR URINALYSIS AND REFLEX TO MICROSCOPIC AND CULTURE CBC WITH AUTO DIFFERENTIAL COMPREHENSIVE METABOLIC PANEL MAGNESIUM PRO B-TYPE NATRIURETIC PEPTIDE PROTIME-INR TROPONIN T HIGH-SENSITIVITY SERIES (BASELINE, 2HR, 4HR, 6HR) XR Chest 1 View Final Result MDM Medical Decision Making Patient has a history of dementia, recent COVID diagnosis. Now with hallucinations. Amount and/or Complexity of Data Reviewed Labs: ordered. Radiology: ordered. Details: CXR: Nothing acute. ECG/medicine tests: ordered and independent interpretation performed. Details: EKG: Normal sinus rhythm, rate 61, LVH Discussion of management or test interpretation with external provider(s): Differential diagnosis: Pneumonia, COVID, UTI. Labs pending. ED Course as of 04/21/23 1410 Time: 04/21 1409 Comment: Dr. Kerr taking over care. By: Gurmeet Church MD Final diagnoses: Hallucinations Gurmeet Church MD 04/21/23 1410 AL SHELTER SUPERVISOR * Cat Boyce RN - 04/21/2023 12:44 PM CST Pt was dx with covid 5 days ago. Today daughter reports that pt is hallucinating and that she was very restless and agitated last night. AL SHELTER SUPERVISOR documented in this encounter Miscellaneous Notes * ED Re-evaluation Note - Tiago Kerr MD - 04/21/2023 7:02 PM CST ED Re-evaluation I assumed care of this patient at shift change with pending labs and disposition. I have seen the patient she was comfortably resting on the bed in no discomfort. I have informed the daughter about the lab work. She has still has a in the urine. Discussed urinalysis with the daughter do. She feels comfortable taking her home but is requesting medication which can make her sleep as she has not slept for past few days. Tiago Kerr MD 04/21/23 190 AL SHELTER SUPERVISOR * ED Procedure Note - Gurmeet Church MD - 04/21/2023 1:39 PM CSTAssociated Order(s): ECG 12 lead Procedure ECG 12 lead Date/Time: 04/21/2023 1:39 PM Performed by: Gurmeet Church MD Authorized by: Gurmeet Church MD Rate: ECG rate: 61 ECG rate assessment: normal Rhythm: Rhythm: sinus rhythm Other findings: Other findings: LVH Interpretation: Interpretation: abnormal Gurmeet Church MD 04/21/23 2263 AL SHELTER SUPERVISOR documented in this encounter Plan of Treatment Not on file documented as of this encounter Procedures Procedure Name Priority Date/Time Associated Diagnosis Comments URINALYSIS AND REFLEX TO MICROSCOPIC AND CULTURE Routine 04/21/2023 6:38 PM ANIMAL SHELTER SUPERVISOR URINALYSIS, MICROSCOPIC ONLY Routine 04/21/2023 6:38 PM ANIMAL SHELTER SUPERVISOR TROPONIN T HIGH-SENSITIVITY 2-HOUR Timed 04/21/2023 5:33 PM ANIMAL SHELTER SUPERVISOR TROPONIN T HIGH-SENSITIVITY SERIES (BASELINE, 2HR, 4HR, 6HR) Routine 04/21/2023 3:02 PM ANIMAL SHELTER SUPERVISOR EGFR STAT 04/21/2023 3:02 PM ANIMAL SHELTER SUPERVISOR DIFFERENTIAL AUTO STAT 04/21/2023 3:0 2 PM ANIMAL SHELTER SUPERVISOR PRO B-TYPE NATRIURETIC PEPTIDE STAT 04/21/2023 3:02 PM ANIMAL SHELTER SUPERVISOR CBC WITH AUTO DIFFERENTIAL STAT 04/21/2023 3:02 PM ANIMAL SHELTER SUPERVISOR PROTIME-INR STAT 04/21/2023 3:02 PM ANIMAL SHELTER SUPERVISOR MAGNESIUM Routine 04/21/2023 3:02 PM ANIMAL SHELTER SUPERVISOR COMPREHENSIVE METABOLIC PANEL STAT 04/21/2023 3:02 PM ANIMAL SHELTER SUPERVISOR XR CHEST 1 VIEW ED 04/21/2023 1:51 PM ANIMAL SHELTER SUPERVISOR ECG 12-LEAD Routine 04/21/2023 1:31 PM ANIMAL SHELTER SUPERVISOR INFLUENZA A/B, RSV, AND COVID-19 PCR Routine 04/21/2023 1:27 PM ANIMAL SHELTER SUPERVISOR documented in this encounter Results * (ABNORMAL) Urinalysis, microscopic only (04/21/2023 6:38 PM ANIMAL SHELTER SUPERVISOR) WBC, ur 0-5 0 - 5 /HPF [facility] ([place]) RBC, ur 0-2 0 - 2 /HPF [facility] ([place]) Epithelial cells, squamous, ur 1-5 0 - 5 /HPF [facility] ([place]) Bacteria, ur Trace(A) [facility] ([place]) Mucous, ur Present(A) [facility] ([place]) Hyaline casts, ur 11-20(A) 0 - 10 /LPF [facility] ([place]) Culture Reflex Comment Reflex conditions for urine culture (WBC >10) not met. [facility] ([place]) Urine, clean voided 04/21/2023 6:38 PM ANIMAL SHELTER SUPERVISOR 04/21/2023 6:40 PM ANIMAL SHELTER SUPERVISOR us Tiago Kerr MD LAB URINE ORDERABLES Final Res ult [facility] ([place]) [address] [facility] [place] [address] * (ABNORMAL) Urinalysis reflex to microscopic and culture Urine, clean voided (04/21/2023 6:38 PM ANIMAL SHELTER SUPERVISOR) Color, ur Yellow Yellow [facility] ([place]) Clarity, ur Clear Clear [facility] ([place]) Specific gravity, ur 1.007 1.003 - 1.030 [facility] ([place]) pH, urine 6.5 [facility] ([place]) Comment: Interpretive Data ? Urine pH is affected by diet, medications, systemic acid-base disturbances, and renal tubular function. ??pH may affect urinary stone formation. ??For example, urine pH below 6.0 may help reduce the tendency for calcium phosphate stones and pH greater than 6.0 may reduce the tendency for uric acid stone formation. Source: [facility] Current Interpretive Data was last revised on 2017 Protein, ur ql Negative Negative [facility] ([place]) Glucose, ur ql Negative Negative [facility] ([place]) Ketones, ur Negative Negative [facility] ([place]) Bilirubin, ur Negative Negative [facility] ([place]) Blood, ur Negative Negative [facility] ([place]) Urobilinogen, ur <2.0 <2.0 mg/dL [facility] ([place]) Nitrite, ur Negative Negative [facility] ([place]) Leukocyte esterase, ur 2+(A) Negative [facility] ([place]) UA reflex comment Reflex to microscopic UA will be performed. [facility] ([place]) Urine, clean voided 04/21/2023 6:38 PM ANIMAL SHELTER SUPERVISOR 04/21/2023 6:40 PM ANIMAL SHELTER SUPERVISOR Tiago Kerr MD LAB MICROBIOLOGY - GENERAL ORD ERABLES Final Result Performing Organization Address City/[facility]/ZIP Co de Phone Number [facility] ([place]) [address] [facility] [place] [address] * Troponin T high-sensitivity 2-hour (04/21/2023 5:33 PM ANIMAL SHELTER SUPERVISOR) Trop T hs 10 <=14 ng/L [facility] ([place]) Comment: Interpretive Data For further hscTnT resources including the diagnostic algorithm and an aid in interpretation, copy and paste this link: https://nrl.testcatalog.org/show/hsTrop Current Interpretive Data last revised 2020. Trop T hs delta 0 ng/L [facility] ([place]) Trop T hs interp Insignificant [facility] ([place]) Blood 04/21/2023 5:33 PM ANIMAL SHELTER SUPERVISOR 04/21/2023 5:37 PM ANIMAL SHELTER SUPERVISOR us Gurmeet Church MD LAB BLOOD ORDERABLES Final R esult [facility] ([place]) [address] [facility] [place] [address] * eGFR (04/21/2023 3:02 PM ANIMAL SHELTER SUPERVISOR) Pathologist [facility] [place] eGFR 76 mL/min/1. 73 m2 [facility] ([place]) Comment: Interpretive Data Reference Interval Normal ?>/= [...] interpretive data was last reviewed 2021. Blood 04/21/2023 3:02 PM ANIMAL SHELTER SUPERVISOR 04/21/2023 3:04 PM ANIMAL SHELTER SUPERVISOR us Gurmeet Church MD LAB BLOOD ORDERABLES Final R esult [facility] ([place]) [address] [facility] [place] [address] * Differential, auto (04/21/2023 3:02 PM ANIMAL SHELTER SUPERVISOR) Pathologist [facility] [place] Neutrophil abs 1.5 1.5 - 6.5 K/cumm [facility] ([place]) Imm gran abs 0.0 0.0 - 0.1 K/cumm [facility] ([place]) Lymphocyte abs 1.8 0.8 - 3.3 K/cumm [facility] ([place]) Monocyte abs 0.4 0.2 - 0.8 K/cumm [facility] ([place]) Eosinophil abs 0.0 0.0 - 0.5 K/cumm [facility] ([place]) Basophil abs 0.0 0.0 - 0.1 K/cumm [facility] ([place]) Neutrophil pct 40.6 % [facility] ([place]) Comment: Interpretive Data Percent cell count reference ranges are not reported, since discordance with absolute values may lead to misinterpretation of CBC data. Current Interpretive Data was last revised on 2017. Imm gran pct 0.0 % [facility] ([place]) Comment: Interpretive Data Percent cell count reference ranges are not reported, since discordance with absolute values may lead to misinterpretation of CBC data. Current Interpretive Data was last revised on 2017. Lymphocyte pct 46.9 % [facility] ([place]) Comment: Interpretive Data Percent cell count reference ranges are not reported, since discordance with absolute values may lead to misinterpretation of CBC data. Current Interpretive Data was last revised on 2017. Monocyte pct 11.7 % [facility] ([place]) Comment: Interpretive Data Percent cell count reference ranges are not reported, since discordance with absolute values may lead to misinterpretation of CBC data. Current Interpretive Data was last revised on 2017. Eosinophil pct 0.3 % [facility] ([place]) Comment: Interpretive [...] Data was last revised on 2017. Blood 04/21/2023 3:02 PM ANIMAL SHELTER SUPERVISOR 04/21/2023 3:04 PM ANIMAL SHELTER SUPERVISOR Result [facility] Gurmeet Church MD LAB BLOOD ORDERABLES Final R esult Performing Organization Address City/[facility]/ZIP Co de Phone Number [facility] ([place]) [address] [place] [address] * Troponin T high-sensitivity series (baseline, 2hr, 4hr, 6hr) (04/21/2023 3:02 PM ANIMAL SHELTER SUPERVISOR) Trop T hs 10 <=14 ng/L [facility] ([place]) Comment: Interpretive Data For further hscTnT resources including the diagnostic algorithm and an aid in interpretation, copy and paste this link: https://nrl.testcatalog.org/show/hsTrop Current Interpretive Data last revised 2020. Blood 04/21/2023 3:02 PM ANIMAL SHELTER SUPERVISOR 04/21/2023 3:04 PM ANIMAL SHELTER SUPERVISOR Gurmeet Church MD LAB BLOOD ORDERABLES Final R esult Performing Organization Address [facility] Co de Phone Number [facility] ([place]) 1 [facility] [place] [address] * Protime-INR (04/21/2023 3:02 PM ANIMAL SHELTER SUPERVISOR) PT 11.9 10.3 - 13.7 sec [facility] ([place]) INR 1.04 0.90 - 1.20 [facility] ([place]) Comment: Interpretive data Oral anticoagulant therapeutic ranges: Venous thromboembolism prophylaxis or treatment: 2.0-3.0 CARDIOLOGY Standard range: 2.0-3.0 High-intensity range: 2.5-3.5 Refer to indication-specific guidelines for appropriate target ranges for prosthetic heart valve replacement. Current interpretive data was last revised on 2019. Blood 04/21/2023 3:02 PM ANIMAL SHELTER SUPERVISOR 04/21/2023 3:04 PM ANIMAL SHELTER SUPERVISOR Gurmeet Church MD LAB BLOOD ORDERABLES Final R esult Performing Organization Address City/[facility]/ZIP Co de Phone Number [facility] ([place]) [address] [facility] Department [place] [address] * Pro B-type natriuretic peptide (04/21/2023 3:02 PM ANIMAL SHELTER SUPERVISOR) NT-proBNP 275 <=450 pg/mL [facility] ([place]) Comment: Interpretive Comments: A. Dyspnea in Acute Care Setting All Ages: ?< 300 pg/ml, acute heart failure unlikely. < 50 yrs: ?300 - 450 pg/ml, further investigation warranted. ? > 450 pg/ml, acute heart failure likely. 50 - 74 yrs: ? 300 - 900 pg/ml, further investigation warranted. ? > 900 pg/ml, acute heart failure likely . > or = 75 yrs: ? 450 - 1800 pg/ml, further investigation warranted. ? > 1800 pg/ml, acute heart failure likely. B. Non-acute Setting < 75 yrs ? < 125 pg/ml, rules out heart failure. ? > or = 125 pg/ml, further investigation warranted. > or = 75 yrs ?< 450 pg/ml, rules out heart failure. ? > or = 450 pg/ml, further investigation warranted. - Knowledge of each individual patient's NT-proBNP range may be more useful than using similar cut-points for every patient. Please note that marked elevations in NT-proBNP levels may be observed in state other than Left Ventricular Congestive Failure, including: acute coronary syndromes, right heart strain/failure (including pulmonary embolism and cor pulmonale), critical illness, renal failure, as well as advanced age. - References: 1. Ronaldo FERNANDO et.al. Eur Heart J. 2006:27:330-337. 2. Sariah PAGE, Anita FINE. J. AM Jairon Cardiol: Cardiovasc Imag. 2009;2: 216- 225. Interpretive Data Last Revised Date: 2017. Blood 04/21/2023 3:02 PM ANIMAL SHELTER SUPERVISOR 04/21/2023 3:03 PM ANIMAL SHELTER SUPERVISOR Gurmeet Church MD LAB BLOOD ORDERABLES Final R esult Performing Organization Address City/[facility]/ZIP Co de Phone Number [facility] ([place]) 1 [facility] [place] [address] * Magnesium (04/21/2023 3:02 PM ANIMAL SHELTER SUPERVISOR) Magnesium 2.0 1.4 - 2.5 mg/dL [facility] ([place]) Blood 04/21/2023 3:02 PM ANIMAL SHELTER SUPERVISOR 04/21/2023 3:04 PM ANIMAL SHELTER SUPERVISOR Gurmeet Church MD LAB BLOOD ORDERABLES Final R esult Performing Organization Address City/[facility] Co de Phone Number [facility] ([place]) 1 [facility] [place] [address] * Comprehensive metabolic panel (04/21/2023 3:02 PM ANIMAL SHELTER SUPERVISOR) Sodium 136 135 - 145 mmol/L [facility] ([place]) Potassium, pl 4.6 3.3 - 4.9 mmol/L [facility] ([place]) Chloride 102 97 - 110 mmol/L [facility] ([place]) CO2 23 22 - 32 mmol/L [facility] ([place]) Anion gap 11 2 - 15 mmol/L [facility] ([place]) BUN 15 6 - 25 mg/dL [facility] ([place]) Creatinine 0.78 0.60 - 1.10 mg/dL [facility] ([place]) Glucose 91 70 - 199 mg/dL [facility] ([place]) Comment: Interpretive Data Fasting glucose >/= [...] 1.2 mg/dL [facility] ([place]) Protein, pl 7.3 6.5 - 8.5 g/dL [facility] ([place]) Albumin 3.5 3.5 - 5.0 g/dL [facility] ([place]) Alk phos 76 40 - 130 Units/L [facility] ([place]) ALT 12 7 - 45 Units/L [facility] ([place]) AST 25 10 - 45 Units/L [facility] ([place]) Comment: Hemolysis present. ??Results may be affected. Slightly Hemolyzed Specimen Blood 04/21/2023 3:02 PM ANIMAL SHELTER SUPERVISOR 04/21/2023 3:04 PM ANIMAL SHELTER SUPERVISOR us Gurmeet Church MD LAB BLOOD ORDERABLES Final R esult [facility] ([place]) [address] [facility] [place] [address] * (ABNORMAL) CBC with auto differential (04/21/2023 3:02 PM ANIMAL SHELTER SUPERVISOR) WBC 3.8 3.8 - 9.9 K/cumm [facility] ([place]) Hgb 10.2(L) 11.9 - 15.5 g/dL [facility] ([place]) Hct 32.6(L) 35.6 - 45.5 % [facility] ([place]) Plt 175 150 - 400 K/cumm [facility] ([place]) MPV 9.8 9.1 - 12.3 fL [facility] ([place]) RBC 3.87(L) 3.90 - 5.20 M/cumm [facility] ([place]) MCV 84.2 81.3 - 96.4 fL [facility] ([place]) MCH 26.4(L) 27.1 - 33.3 pg [facility] ([place]) MCHC 31.3(L) 32.3 - 35.7 g/dL [facility] ([place]) RDW CV 13.2 11.1 - 14.9 % [facility] ([place]) RDW SD 40.6 35.7 - 48.1 fL [facility] ([place]) NRBC abs 0.00 0.00 - 0.01 K/cumm [facility] ([place]) Blood 04/21/2023 3:02 PM ANIMAL SHELTER SUPERVISOR 04/21/2023 3:04 PM ANIMAL SHELTER SUPERVISOR Gurmeet Church MD LAB BLOOD ORDERABLES Final R esult [facility] ([place]) [address] [facility] [place] [address] * XR Chest 1 View (04/21/2023 1:51 PM ANIMAL SHELTER SUPERVISOR) Anatomical Region Laterality Modality Body, Chest N/A Computed Radiogr aphy 04/21/2023 1:52 PM ANIMAL SHELTER SUPERVISOR Narrative 04/21/2023 1:53 PM ANIMAL SHELTER SUPERVISOR EXAM DESCRIPTION: XR CHEST 1 VIEW REASON FOR STUDY: chest pain ?? Patient has Alzheimer's dementia. She was recently diagnosed with COVID. She has had symptoms since 3 days ago with cough, body aches. Last night she was hallucinating with visual hallucinations. She was difficult to settle down. Patient taking ?? Coricidin, ibuprofen and a decongestant. No chest pain or shortness of breath. ? TECHNIQUE: Single frontal ??radiographic view(s) of the chest. COMPARISON: None FINDINGS: The heart size is upper limits of normal. ??The pulmonary vasculature and mediastinum are grossly unremarkable. ??There is no definite evidence of a pneumothorax. ??There is no definite evidence of pleural effusion. ??There are mild patchy bibasilar airspace opacities. There are degenerative changes of the spine and bilateral shoulders. IMPRESSION: Mild patchy bibasilar airspace opacities, which is likely related to subsegmental atelectasis/scarring and less likely developing airspace disease. THIS IS AN ELECTRONICALLY VERIFIED FINAL REPORT 04/21/2023 1:53 PM - Electronically signed by ??Kota Mueller D.O. PS: PS D: ??04/21/2023 1:53 PM T: ??04/21/2023 1:53 PM Report ID: [id number] Reading Location: ??[id number] Procedure Note Kota Mueller, DO - 04/21/2023 EXAM DESCRIPTION: XR CHEST 1 VIEW REASON FOR STUDY: chest pain Patient has Alzheimer's dementia. She was recently diagnosed with COVID.She has had symptoms since 3 days ago with cough, body aches. Last night shewas hallucinating with visual hallucinations. She was difficult to [place]own. Patient taking Coricidin, ibuprofen and a decongestant. No chest pain or shortness of breath. TECHNIQUE: Single frontal radiographic view(s) of the chest. COMPARISON: None FINDINGS: The heart size is upper limits of normal. The pulmonary vasculature and mediastinum are grossly unremarkable. There is no definite evidence of a pneumothorax. There is no definite evidence of pleural effusion. Thereare mild patchy bibasilar airspace opacities. There are degenerative changes of the spine and bilateral shoulders. IMPRESSION: Mild patchy bibasilar airspace opacities, which is likely related to subsegmental atelectasis/scarring and less likely developing airspacedisease. THIS IS AN ELECTRONICALLY VERIFIED FINAL REPORT 04/21/2023 1:53 PM - Electronically signed by Kota Mueller D.O. PS: PS Report ID: [id number] Reading Location: [id number] us Gurmeet Church MD IMG XR PROCEDURES Final Resu lt * ECG 12 lead (04/21/2023 1:31 PM ANIMAL SHELTER SUPERVISOR) 04/21/2023 1:31 PM ANIMAL SHELTER SUPERVISOR Narrative [facility] - 04/22/2023 10:20 AM ANIMAL SHELTER SUPERVISOR Vent Rate: 61 bpm RR Interval: 969 msec WY Interval: 162 msec QRS Duration: 88 msec QT Interval: 384 msec QTC Interval: 388 msec P-R-T Jbphh: 53 - 2 - 47 degrees IMPRESSION: SINUS RHYTHM MODERATE VOLTAGE CRITERIA FOR LVH, CONSIDER NORMAL VARIANT ??[MEETS CRITERIA IN ONE OF: R(aVL), S(V1), R(V5), R(V5/V6)+S(V1)] BORDERLINE ECG Electronically Signed By: Jaron Moncada Gurmeet Church MD ECG ORDERABLES Final Result [facility] * (ABNORMAL) Influenza A/B, RSV, and COVID-19 PCR Nasopharyngeal (04/21/2023 1:27 PM ANIMAL SHELTER SUPERVISOR) Pathologist [facility] [place] COVID-19 RNA Positive(A) Negative [facility] (JANE) Influenza A RNA Negative Negative [facility] ([facility]ANE) Influenza B RNA Negative Negative [facility] ([facility]ANE) RSV RNA Negative Negative [facility] (JANE) Comment: Interpretive data: Testing performed by [facility]. This test is performed using the [employer] Xpert Xpress CoV-2/Flu/RSV plus assay. This is a multiplex, real- time reverse transcriptase PCR assay intended for the qualitative detection of nucleic acid from SARS-CoV-2, influenza A, influenza B, and respiratory syncytial virus. This assay has been cleared by the [place] Food and Drug administration. The performance characteristics have been verified by the [facility]. ?? Results must be considered in the clinical context, and a negative result does not rule out infection. Interpretive Data last revised 2023 Nasopharyngeal 04/21/2023 1: 27 PM ANIMAL SHELTER SUPERVISOR 04/21/2023 1:29 PM ANIMAL SHELTER SUPERVISOR Narrative JOSE MARCELINO (JANE) - 04/21/2023 2:09 PM ANIMAL SHELTER SUPERVISOR Is the Patient experiencing symptoms consistent with COVID?->Yes Date of Symptom Onset->04/18/23 Reason for testing?->Symptomatic Gurmeet Church MD LAB MICROBIOLOGY - GENERAL O RDERABLES Final Result Performing Organization Address City/[facility]/ZIP Co de Phone Number JOSE MARCELINO (JANE) [address] [facility] [place] [address] documented in this encounter Visit Diagnoses Diagnosis Hallucinations- Primary COVID documented in this encounter Additional Health Concerns Infection Onset Date Last Indicated Resolved Time COVID: Suspected 04/21/2023 04/21/2023 04/21/2023 2:09 PM ANIMAL SHELTER SUPERVISOR COVID19 04/21/2023 04/21/2023 05/01/2023 3:05 AM ANIMAL SHELTER SUPERVISOR documented as of this encounter Care Teams Public Health Program Manager Relationship Specialty Start Date End Date Jocelynn Coy DO PCP - General Family Medicine 06/10/17 09/02/23 Brian Madera MD [address] [place] [address] [place] [address] Consulting Physician Neurology 04/02/22 documented as of this encounter
--- OUTSIDE RECORDS SUMMARY | 2024-03-31 14:21 | XMS_ITS | Encounter Summary ---
Author Organization [facility] Healthcare Address [address] [place] [address] Care Team Providers Care Strainer Tender Name Role Phone Jocelynn Coy DO Primary Care Provider [phone] Brian Madera MD Unavailable [phone] Reason for Visit * Reason Onset Date Comments Referral Request 05/10/2023 Encounter Details Date Type Department Care Team (Late st Contact Info) Description 05/10/2023 Telephone [facility] Medical [facility] Primary Care at [address] [place] [address] Jocelynn Coy DO [address] [place] [address] Referral Request Social History Tobacco Use [...] 0 04/25/2023 Personal Safety Answer Date Recorded Getting School Help Needed Denies 04/21 Comments No Sex and Gender Information Value Date Recorded Sex Assigned at Not on file Legal Sex Female 8:45 PM PHYSICIAN ASSISTANT CERTIFIED Gender Identity Female 04/25/2021 2:46 PM PHYSICIAN ASSISTANT CERTIFIED Sexual Orientation Straight 04/25/2021 2: 46 PM PHYSICIAN ASSISTANT CERTIFIED documented as of this encounter Miscellaneous Notes * Telephone Encounter - Megan Rosario - 05/10/2023 10:24 AM CST Referral obtained. Faxing to provided number. ICIAN ASSISTANT CERTIFIED * Telephone Encounter - Kathia Tellez - 05/10/2023 10:06 AM CST Referral Provider Name (if patient is seeing a nurse practitioner or physician assistant county attorney, list the FIRE CONTROL TECHNICIAN G/PA, but also their collaborating doctor): Brian Coughlin, D.P.M. Specialty: Podiatry Foot Surgery Primary Practice Address [address] [place] [address] Diagnosis Code/Symptom/Reason Patient is being seen: Routine Date of Appointment: 05.16 NPI#: [id number] Tax ID#: [id number] Is insurance in chart up to date? Yes Additional Comments: Marking high priority patient's appointment is next week. Does message need to be routed? Yes-Action Needed ICIAN ASSISTANT CERTIFIED documented in this encounter Plan of Treatment Not on file documented as of this encounter Visit Diagnoses Not on filedocumented in this encounter Additional Health Concerns Infection Onset Date Last Indicated Resolved Time COVID: Recovered Comment:Added based on recent COVID infection. 05/01/2023 05/03/2023 07/30/2023 3:06 AM C DT documented as of this encounter Care Teams Strainer Tender Relationship Specialty Start Date End Date Jocelynn Coy DO PCP - General Family Medicine 06/10/17 09/02/23 Brian Madera MD [address] [place] [facility] [address] Consulting Physician Neurology 04/02/22 documented as of this encounter
--- OUTSIDE RECORDS SUMMARY | 2024-03-31 14:21 | XMS_ITS | Encounter Summary ---
Author Organization [facility] Healthcare Address [address] [place] [address] Care Team Providers Care Aircraft Metalsmith Name Role Phone Jocelynn Coy Primary Care Provider [phone] Brian Madera MD Unavailable [phone] Reason for Visit * Reason Comments Successful Phone Call Encounter Details Date Type Department Care Team (Late st Contact Info) Description 04/23/2023 [place] ED Outreach [facility] Accountable Care Organization [address] [place] [address] Mikala Sheth MA [address] [place] [address] DR MANCINI [address] [place] [address] Social History Tobacco Use Types Packs/Day Years [...] on file Legal Sex Female 8:45 PM SURGICAL CONSULTANT Gender Identity Female 04/25/2021 2:46 PM SURGICAL CONSULTANT Sexual Orientation Straight 04/25/2021 2: 46 PM SURGICAL CONSULTANT documented as of this encounter Progress Notes * Mikala Sheth MA - 04/23/2023 9:07 AM CST Care Billing Customer Service Representative contacted patient's daughter, Toyin, regarding patient's recent ED visit at [facility] on 04/21/2023 for hallucinations; COVID. Status of Reason for ED Visit - Better Status Details: - Spoke with patient's daughter, Toyin, who informed me lauren has been doing better since coming home from the ED. Toyin informed me patient was recently diagnosed with COVID and went to the ED as she started experiencing hallucinations. Toyin states since returning home patients hallucinations have improved. Toyin states patient is sleeping well and drinking lots of fluids. Toyin also states patients body aches have improved with ibuprofen. Discharge Instructions Reviewed - Yes Details: - Toyin confirmed she received patient's discharge paperwork and did not have any furtherquestions. Medication Reconciliation Completed - Yes Details: - Patient was prescribed the following medication from ED: trazodone HCl 50 mg oral nightly. Toyin states she did mixing picker tender this medication for patient from the pharmacy and patient has been taking it as directed. ED Follow-Up Appointment - 04/25/2023 Details: - Toyin states she will be driving patient to her appointment. Patient's daughter educated about same day sick appts at PCP office and when to utilize office vs urgent care vs ED. Patient's daughter verbalized understanding of information presented. No additional needs identified at this time. Provided my contact information for future needs. Thank you, Mikala Sheth CMA ACO Care Billing Customer Service Representative [facility] Medical Group [phone] ICAL CONSULTANT documented in this encounter Plan of Treatment Not on file documented as of this encounter Visit Diagnoses Not on filedocumented in this encounter Additional Health Concerns Infection Onset Date Last Indicated Resolved Time COVID19 04/21/2023 04/21/2023 05/01/2023 3:05 AM SURGICAL CONSULTANT documented as of this encounter Care Teams Aircraft Metalsmith Relationship Specialty Start Date End Date Jocelynn Coy DO PCP - General Family Medicine 06/10/17 09/02/23 Brian Madera MD [address] [facility] [address] MANCINI [address] [place] [address] [address] Consulting Physician Neurology 04/02/22 documented as of this encounter
--- OUTSIDE RECORDS SUMMARY | 2024-03-31 14:21 | XMS_ITS | Encounter Summary ---
Author Organization [facility] Healthcare Address [address] [place] [address] Care Team Providers Care Chief Green Officer Name Role Phone Jocelynn Coy Primary Care Provider [phone] Brian Madera MD Unavailable [phone] Encounter Details Date Type Department Care Team (Late st Contact Info) Description 03/18/2023 2:00 PM SHIPPING CLERK CRATING Lab [address] [place] [address] Type 2 diabetes mellitus with hyperglycemia, without long-term current use of insulin (CMS/HCC) (HCC); Hypertension associated with diabetes (HCC) Social History Tobacco Use Types Packs/Day [...] on file Legal Sex Female 8:45 PM SHIPPING CLERK CRATING Gender Identity Female 04/25/2021 2:46 PM SHIPPING CLERK CRATING Sexual Orientation Straight 04/25/2021 2: 46 PM SHIPPING CLERK CRATING documented as of this encounter Plan of Treatment Not on file documented as of this encounter Procedures Procedure Name Priority Date/Time Associated Diagnosis Comments EGFR Routine 03/18/2023 1:58 PM SHIPPING CLERK CRATING Type 2 diabetes mellitus with hyperglycemia, without long-term current use of insulin (CMS/HCC) (HCC) Hypertension associated with diabetes (HCC) ALBUMIN CREATININE RATIO, URINE Routine 03/18/2023 1:58 PM SHIPPING CLERK CRATING Type 2 diabetes mellitus with hyperglycemia, without long-term current use of insulin (CMS/HCC) (HCC) HEMOGLOBIN A1C Routine 03/18/2023 1:58 PM SHIPPING CLERK CRATING Type 2 diabetes mellitus with hyperglycemia, without long-term current use of insulin (CMS/HCC) (HCC) LIPID PANEL Routine 03/18/2023 1:58 PM SHIPPING CLERK CRATING Type 2 diabetes mellitus with hyperglycemia, without long-term current use of insulin (CMS/HCC) (HCC) Hypertension associated with diabetes (HCC) COMPREHENSIVE METABOLIC PANEL Routine 03/18/2023 1:58 PM SHIPPING CLERK CRATING Type 2 diabetes mellitus with hyperglycemia, without long-term current use of insulin (CMS/HCC) (HCC) Hypertension associated with diabetes (HCC) documented in this encounter Results * eGFR (03/18/2023 1:58 PM SHIPPING CLERK CRATING) [facility] Signature eGFR 59 mL/min/1. 73 m2 JOSE MARCELINO (JANE) Comment: [...] interpretive data was last reviewed 2021. Blood 03/18/2023 1:58 PM SHIPPING CLERK CRATING 03/18/2023 3:53 PM SHIPPING CLERK CRATING us Jocelynn Coy DO LAB BLOOD ORDERABLES Final Result [facility] [address] [facility] Department [place] [address] * Comprehensive metabolic panel (03/18/2023 1:58 PM SHIPPING CLERK CRATING) Sodium 137 135 - 145 mmol/L [facility] (JANE) Potassium, pl 4.2 3.3 - 4.9 mmol/L [facility] (JANE) Chloride 102 97 - 110 mmol/L [facility] (JANE) CO2 26 22 - 32 mmol/L [facility] (JANE) Anion gap 10 2 - 15 mmol/L [facility] ([place]ANE) BUN 19 6 - 25 mg/dL [facility] ([place]ANE) Creatinine 0.96 0.60 - 1.10 mg/dL [facility] (JANE) Glucose 107 70 - 199 mg/dL [facility] (JANE) Comment: Interpretive Data Fasting glucose [...] interpretive data was last revised 2022. Calcium 9.9 8.5 - 10.3 mg/dL [facility] (JANE) Bilirubin, total 0.5 0.1 - 1.2 mg/dL [facility] (JANE) Protein, pl 7.0 6.5 - 8.5 g/dL [facility] ([place]ANE) Albumin 3.9 3.5 - 5.0 g/dL [facility] ([place]ANE) Alk phos 84 40 - 130 Units/L [facility] (JANE) ALT 8 7 - 45 Units/L [facility] ([place]ANE) AST 20 10 - 45 Units/L [facility] (JANE) Blood 03/18/2023 1:58 PM SHIPPING CLERK CRATING 03/18/2023 3:53 PM SHIPPING CLERK CRATING us Jocelynn Coy DO LAB BLOOD ORDERABLES Final Result Performing Organization Address City/[facility]/ZIP Co de Phone Number [facility] (JANE) [address] [facility] [place] [address] * (ABNORMAL) Hemoglobin A1c (03/18/2023 1:58 PM SHIPPING CLERK CRATING) Hgb A1C 6.7(H) 4.0 - 5.6 % [facility] (JANE) Estimated Average Glucose 146 mg/dL [facility] (JANE) Comment: The ADA recommends reporting an estimated Average Glucose (eAG) with all Hemoglobin A1c results using the equation derived from a study of 507 normal and diabetic adults. ??Minority populations were underrepresented and children were not included. ?? (Diabetes Care 31:4637-5456, 2008). ??The eAG is not equivalent to a fasting glucose. Blood 03/18/2023 1:58 PM SHIPPING CLERK CRATING 03/18/2023 3:53 PM SHIPPING CLERK CRATING us Jocelynn Coy DO LAB BLOOD ORDERABLES Final Result Performing Organization Address City/[facility]/ZIP Co de Phone Number [facility] (JANE) [address] [facility] [place] [address] * Albumin Creatinine Ratio, Urine (03/18/2023 1:58 PM SHIPPING CLERK CRATING) Albumin Ur 47.4 mg/L JOSE Clarke (JANE) Comment: Interpretive Data No reference range established. Current interpretive data was last revised 2018. Testing performed by: [facility], [address] [place] [address]., [id number] Creatinine Ur 383.9 mg/dL JOSE MARCELINO (JANE) Comment: Interpretive Data No reference range established. Current interpretive data was last revised 2018. Testing performed by: [facility], [address] [place] [address]., [id number] Albumin Creatinine Ratio, Ur 12 1 - 29 mg/g JOSE MARCELINO (JANE) Comment:Testing performed by : [facility], [address] [place] [address]., [id number] Urine 03/18/2023 1:58 PM SHIPPING CLERK CRATING 03/19/2023 9:36 AM SHIPPING CLERK CRATING Jocelynn Coy DO LAB URINE ORDERABLES Final Result JOSE MARCELINO (JANE) [address] [facility] Department [place] [address] * Lipid panel (03/18/2023 1:58 PM SHIPPING CLERK CRATING) Cholesterol 167 30 - 199 mg/dL JOSE [...] on 2017. Chol/HDL ratio 2 YUKI MARCELINO (JANE) Blood 03/18/2023 1:58 PM SHIPPING CLERK CRATING 03/18/2023 3:53 PM SHIPPING CLERK CRATING us Jocelynn Coy DO LAB BLOOD ORDERABLES Final Result JOSE MARCELINO (JANE) [address] [facility] Department [place] [address] documented in this encounter Visit Diagnoses Diagnosis Type 2 diabetes mellitus with hyperglycemia, without long-term current use of insulin (HCC) Hypertension associated with diabetes (HCC) Unspecified essential hypertension documented in this encounter Care Teams Chief Green Officer Relationship Specialty Start Date End Date Jocelynn Coy DO PCP - General Family Medicine 06/10/17 09/02/23 Brian Madera MD [address] [facility] [address] [place] [address] Consulting Physician Neurology 04/02/22 documented as of this encounter
--- OUTSIDE RECORDS SUMMARY | 2024-03-31 14:21 | XMS_ITS | Encounter Summary ---
Author Organization [facility] Healthcare Address [address] [place] [address] Care Team Providers Care Handicrafts Teacher Name Role Phone Jocelynn Coy Primary Care Provider [phone]- [phone] Brian Madera MD Unavailable [phone] Reason for Visit * Reason Comments Chart Review Nikky kesee Encounter Details Date Type Department Care Team (Late st Contact Info) Description 02/26/2023 ACO Quality [facility] Accountable Care Organization [address] [place] [address] Jazzy Syed CMA [address] [place] [address] [address] MANCINI [address] [place] [address] Social History Tobacco Use Types Packs/Day Years [...] file Legal Sex Female 8:45 PM SHIPPING AGENT Gender Identity Female 04/25/2021 2:46 PM SHIPPING AGENT Sexual Orientation Straight 04/25/2021 2: 46 PM SHIPPING AGENT documented as of this encounter Progress Notes * Jazzy Syed CMA - 02/26/2023 8:19 AM CST Patient has been identified by their insurance plan to have a eGFR gap in care. Chart has been scrubbed and Patient has an upcoming appointment on 03/05/2023 and gap(s) was added to appointment note. Current open gaps in care: eGFR Thank you, Jazzy Syed CMA [facility] ACO Care Hvac Project Engineer [phone] PING AGENT documented in this encounter Plan of Treatment Not on file documented as of this encounter Visit Diagnoses Not on filedocumented in this encounter Care Teams Handicrafts Teacher Relationship Specialty Start Date End Date Jocelynn Coy DO PCP - General Family Medicine 06/10/17 09/02/23 Brian Madera MD [address] [facility] [address] Consulting Physician Neurology 04/02/22 documented as of this encounter
--- OUTSIDE RECORDS SUMMARY | 2024-03-31 14:21 | XMS_ITS | Encounter Summary ---
Author Organization [facility] Healthcare Address [address] [place] [address] Care Team Providers Care Nailer Machine Name Role Phone Jocelynn Coy DO Primary Care Provider [phone] Brian Madera MD Unavailable [phone] Reason for Referral * Consultation (Routine) - Closed Specialty Diagnoses / Procedures Referred By Jamaal chiang Referred To Contact Podiatry Diagnoses Type 2 diabetes mellitus with hyperglycemia, without long-term current use of insulin (HCC) Nail fungus Jocelynn Coy DO Phone: tel: fax: Brian Mims, M [address] [place] [address] Phone: tel: fax: Referral ID Status Reason Start Date Expiration Date V isits Requested Visits Authorized [id number] Closed Specialty Services Required 03/05/2023 04/03/2024 1 1 Question Answer Please select the performing region: External Order [171] To provider: BRIAN MIMS [[id number]] E AND CENTER MARKER Reason for Visit * Reason Comments Annual Exam Pt says she is doing good. Encounter Details Date Type Department Care Team (Late Contact Info) Description 03/05/2023 8:15 AM GRADE AND CENTER MARKER Office Visit [facility] Primary Care at [address] [place] [address] Jocelynn Coy, DO [address] [place] [address] Annual physical exam (Primary Dx); Hypertension associated with diabetes (HCC); Hyperlipidemia associated with type 2 diabetes mellitus (HCC); Type 2 diabetes mellitus with hyperglycemia, without long-term current use of insulin (CMS/HCC) (HCC); 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); Generalized anxiety disorder; Nail fungus; Need for influenza vaccination Social History Tobacco Use Types Packs/Day Years [...] on file Legal Sex Female 8:45 PM GRADE AND CENTER MARKER Gender Identity Female 04/25/2021 2:46 PM GRADE AND CENTER MARKER Sexual Orientation Straight 04/25/2021 2: 46 PM GRADE AND CENTER MARKER documented as of this encounter Last Filed Vital Signs Vital Sign Reading Time Taken Comments Blood Pressure 130/58 03/05/2023 8:45 AM GRADE AND CENTER MARKER Pulse 76 03/05/2023 8:45 AM GRADE AND CENTER MARKER Temperature 36.8 ??C (98.3 ??F) 03/05/2023 8:45 AM CS T Respiratory Rate 16 03/05/2023 8:45 AM GRADE AND CENTER MARKER Oxygen Saturation 99% 03/05/2023 8:45 AM GRADE AND CENTER MARKER Inhaled Oxygen Concentration - - Weight 57.5 kg (126 lb 12.8 oz) 03/05/2023 8:45 AM GRADE AND CENTER MARKER Height 149.9 cm (4' 11.02 ) 03/05/2023 8:[address] Body Mass Index 25.6 03/05/2023 8:45 AM GRADE AND CENTER MARKER documented in this encounter Patient Instructions * Patient Instructions* Jocelynn Coy, DO - 03/05/2023 8:15 AM GRADE AND CENTER MARKER Images from the original note were not included. Patient Education Wellness Visit for Adults CLASSIFICATION OFFICER: A wellness visit is when you see your healthcare provider to get screened for health problems. Yourhealthcare provider will also give you advice on how to stay healthy. Write down your questions so you remember to ask them. Ask your healthcare provider how often you should have a wellness visit. What happens at a wellness visit: Your healthcare provider will ask about your health, and your family history of health problems. This includes high blood pressure, heart disease, and cancer. He or she will ask if you have symptoms that concern you, if you smoke, and about your mood. You may also be asked about your intake of medicines, supplements, food, and alcohol. Any of the following may bedone: Your weight will be checked. Your height may also be checked so your body mass index (BMI) can be calculated. Your BMI shows if you are at a healthy weight. Your blood pressure and heart rate will be checked. Your temperature may also be checked. Blood and urine tests may be done. Blood tests may be done to check your cholesterol levels. Abnormal cholesterol levels increase your risk for heart disease and stroke. You may also need a blood or urine test to check for diabetes if you are at increased risk. Urine tests may be done to look for signs of an infection or kidney disease. A physical exam includes checking your heartbeat and lungs with a stethoscope. Your healthcare provider may also check your skin to look for sun damage. Screening tests may be recommended. A screening test is done to check for diseases that may not cause symptoms. The screening tests you may need depend on your age, gender, family history, and lifestyle habits. For example, colorectal screening may be recommended if you are 50 years old or older. Screening tests you need if you are a woman: A Pap smear is used to screen for cervical cancer. Pap smears are usually done every 3 to 5 years depending on your age. You may need them more often if you have had abnormal Pap smear test results in the past. Ask your healthcare provider how often you should have a Pap smear. A mammogram is an x-ray of your breasts to screen for breast cancer. Experts recommend mammograms every 2 years starting at age 50 years. You may need a mammogram at age 49 years or younger if you have an increased risk for breast cancer. Talk to your healthcare provider about when you should starthaving mammograms and how often you need them. Vaccines you may need: Get an influenza vaccine every year. The influenza vaccine protects you from the flu. Several typesof viruses cause the flu. The viruses change control analyst time, so new vaccines are made each year. Get a tetanus-diphtheria (Td) booster vaccine every 10 years. This vaccine protects you against tetanus and diphtheria. Tetanus is a severe infection that may cause painful muscle spasms and lockjaw.Diphtheria is a severe bacterial infection that causes a thick covering in the back of your mouth and throat. Get a human papillomavirus (HPV) vaccine if you are female and aged 19 to 26 or male 19 to 21 and never received it. This vaccine protects you from HPV infection. HPV is the most common infection spread by sexual contact. HPV may also cause vaginal, penile, and anal cancers. Get a pneumococcal vaccine if you are aged 65 years or older. The pneumococcal vaccine is an injection given to protect you from pneumococcal disease. Pneumococcal disease is an infection caused by pneumococcal bacteria. The infection may cause pneumonia, meningitis, or an ear infection. Get a shingles vaccine if you are 60 or older, even if you have had shingles before. The shingles vaccine is an injection to protect you from the varicella- zoster virus. This is the same virus that causes chickenpox. Shingles is a painful rash that develops in people who had chickenpox or have beenexposed to the virus. How to eat healthy: My Plate is a model for planning healthy meals. It shows the types and amounts of foods that should go on your plate. Fruits and vegetables make up about half of your plate, and grains and protein make up the other half. A serving of dairy is included on the side of your plate. The amount of calories and serving sizes you need depends on your age, gender, weight, and height. Examples of healthy foods are listed below: Eat a variety of vegetables such as dark green, red, and orange vegetables. You can also include canned vegetables low in sodium (salt) and frozen vegetables without added butter or sauces. Eat a variety of fresh fruits , canned fruit in 100% juice, frozen fruit, and dried fruit. Include whole grains. At least half of the grains you eat should be whole grains. Examples include whole-wheat bread, wheat pasta, brown rice, and whole- grain cereals such as oatmeal. Eat a variety of protein foods such as seafood (fish and shellfish), lean meat, and poultry withoutskin (turkey and chicken). Examples of lean meats include pork leg, shoulder, or tenderloin, and beef round, sirloin, tenderloin, and extra lean ground beef. Other protein foods include eggs and egg substitutes, beans, peas, soy products, nuts, and seeds. Choose low-fat dairy products such as skim or 1% milk or low-fat yogurt, cheese, and cottage cheese. Limit unhealthy fats such as butter, hard margarine, and shortening. Exercise: Exercise at least 30 minutes per day on most days of the week. Some examples of exercise include walking, biking, dancing, and swimming. You can also fit in more physical activity by takingthe stairs instead of the elevator or parking farther away from stores. Include muscle strengthening activities 2 days each week. Regular exercise provides many health benefits. It helps you manage your weight, and decreases your risk for type 2 diabetes, heart disease, stroke, and high blood pressure. Exercise can also help improve your mood. Ask your healthcare provider about the best exercise plan for you. General health and safety guidelines: Do not smoke. Nicotine and other chemicals in cigarettes and cigars can cause lung damage. Ask yourhealthcare provider for information if you currently smoke and need help to quit. E-cigarettes or smokeless tobacco still contain nicotine. Talk to your healthcare provider before you use these products. Limit alcohol. A drink of alcohol is 12 ounces of beer, 5 ounces of wine, or 1?? ounces of liquor. Lose weight, if needed. Being overweight increases your risk of certain health conditions. These include heart disease, high blood pressure, type 2 diabetes, and certain types of cancer. Protect your skin. Do not sunbathe or use tanning beds. Use sunscreen with a SPF 15 or higher. Apply sunscreen at least 15 minutes before you go outside. Reapply sunscreen every 2 hours. Wear protective clothing, hats, and sunglasses when you are outside. Drive safely. Always wear your seatbelt. Make sure everyone in your car wears a seatbelt. A seatbelt can save your life if you are in an accident. Do not use your cell phone when you are driving. This could distract you and cause an accident. oil recovery operator if you need to make a call or send a text message. Practice safe sex. Use latex condoms if are sexually active and have more than one partner. Your healthcare provider may recommend screening tests for sexually transmitted infections (STIs). Wear helmets, lifejackets, and protective gear. Always wear a helmet when you ride a bike or motorcycle, go skiing, or play sports that could cause a head injury. Wear protective equipment when you play sports. Wear a lifejacket when you are on a boat or doing water sports. ?? Copyright [employer] 2021 Information is for End User's use only and may not be sold, redistributed or otherwise used for commercial purposes. All illustrations and images included in CareNotes?? are the copyrighted property of [employer]. or [employer] The above information is an hearing aide technician only. It is not intended as medical advice for individual conditions or treatments. Talk to your doctor, nurse or pharmacist before following any medical regimen to see if it is safe and effective for you. Health Maintenance Topics with due status: Overdue Topic Date Due Dilated Eye Exam Never done Zoster Vaccine Never done Foot Exam 01/09/2022 Albumin Creatinine Ratio, Urine 09/04/2022 Hemoglobin A1C 10/01/2022 Covid-19 Vaccine 12/14/2022 Health Maintenance Topics with due status: Due Soon Topic Date Due Well Visit 65+ 04/02/2023 RSV vaccine Thanks for coming in today! My medical physics professor and I are thankful you have trusted us with your care, and hope that you received EXCELLENT care today! Although some conditions may not allow immediate improvement, I aim to always make you feel a little better leaving, than when you came in. [place] not hesitate to call, if you have any questions or concerns, at [phone]. You may receive a phone call, text, MYCHART message, or e-mail asking you to take a survey about your care today. We would love to hear your feedback on how EXCELLENT your care was today! Wishing you better health, always! Dr. Jocelynn Coy E AND CENTER MARKER E AND CENTER MARKER documented in this encounter Ordered Prescriptions Prescription Sig Dispense Quantity Refills Last Filled Start Date End Date LORazepam (ATIVAN) 0.5 mg tabletIndications: Generalized anxiety disorder Take 1 tablet (0.5 mg total) by mouth as needed for anxiety 30 tablet 5 03/05/2023 4 documented in this encounter Progress Notes * Jocelynn Coy DO - 03/05/2023 8:15 AM CST Images from the original note were not included. MEDICARE ANNUAL WELLNESS VISIT Annita Bose is a 82 y.o. year old Black Or Non- female here an for Annual Wellness Visit. She is here with her daughter, Jocelynn. She is without complaints. Medicare Health Risk Assessment Basic Information In general, would you say your health is: Good Do you have an advance directive, such as a living will or durable power of brand advisor?: (!) No Would you like information regarding Advanced Directive (Living Will) and/or Durable Power of Commercial Baker Helper?: (!) Yes Do you have to strain or struggle to hear/understand conversations?: (!) Yes Over the last 2 weeks, how often have you been bothered by any of the following problems? Little Interest or Pleasure in Doing Things: Not at all Feeling Down, Depressed, or Hopeless: Not at all PHQ-2 Total Score (If total score is 3 or more points, staff should administer the PHQ-9): 0 In the past year, patient experienced: One or more falls in the last year: (!) Yes How many times?: 1 Was the patient injured in the fall?: No Do you feel unsteady when standing or walking?: No Do you worry about falling?: No Safety Do you have a working smoke detector in your home?: Yes Does your home have throw rugs, poor lighting, or a slippery bath tub/shower?: No Do you always fasten your seatbelt when you are in a vehicle?: Yes What is your typical mode of transportation: Car Physical Activity How many days a week do you usually exercise?: 1-3 days per week How intense is your typical exercise?: Light (like stretching or slow walking) Nutrition How would you rate your appetite?: Good How would you describe the condition of your mouth and teeth/dentures?: (!) Poor On a typical day, how many servings of fruits and vegetables do you eat?: 2 On a typical day, how many servings of high fiber/whole-grain foods do you eat?: 3 On a typical day, how many servings of high fat/fried foods do you eat?: 0 Have you experienced any of the following problems currently or recently? Eating: No Grooming: No Bathing: No Walking: No Using the toilet: No Memory problems: (!) Yes Difficulty speaking: No Dressing: No Balance: No Pain: (!) Yes (lower back) Sexual Health: No Fatigue: No Have you experienced any of the following problems currently or recently? Laundry and/or housekeeping: No Handling money: No Shopping: No Using the Phone: No Food preparation: (!) Yes Transportation: No Taking and/or getting your own medications: No Do you use prescription drugs that are not prescribed for you?: No Do you struggle with any of the following: depression, stress, anger, loneliness or social isolation?: No Problem List, Past Medical and Surgical History: Patient Active Problem List Diagnosis Hypertension associated with diabetes (HCC) Hyperlipidemia associated with type 2 diabetes mellitus (HCC) Generalized anxiety disorder Body mass index (BMI) of 25.0 to 25.9 in adult Type 2 diabetes mellitus with hyperglycemia, without long-term current use of insulin (CMS/HCC) (HCC) Decreased hearing of both ears 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) Nail fungus History reviewed. No pertinent past medical history. Past Surgical History: Procedure Laterality Date CATARACT EXTRACTION Bilateral 09/07/2021 09/22/2021 FL FLUORO GUIDED LUMBAR PUNCTURE Right 01/17/2022 Family History: Family History Problem Relation Age of Onset Stomach cancer Sister Social History: Social History Tobacco Use Smoking status: Never Smokeless tobacco: Never Substance and Sexual Activity Drug use: No Sexual activity: None Alcohol Use: Not At Risk (03/05/2023) AUDIT-C Frequency of Alcohol Consumption: Never Average Number of Drinks: Patient does not drink Frequency of Binge Drinking: Never Allergies: No Known Allergies Medications: Current Outpatient Medications: amLODIPine (NORVASC) 10 mg tablet, Take 1 tablet (10 mg total) by mouth nightly, Disp: 90 tablet, Rfl: 3 atorvastatin (LIPITOR) 20 mg tablet, Take 1 tablet (20 mg total) by mouth nightly, Disp: 90 tablet,Rfl: 3 blood glucose diagnostic strip, Use one strip to monitor home blood sugars daily., Disp: 100 each, Rfl: 3 blood-glucose meter kit, 1 Device daily, Disp: 1 each, Rfl: 0 coenzyme Q10 100 mg capsule, Take 1 capsule (100 mg total) by mouth daily, Disp: , Rfl: lancets 31 gauge misc, 1 Device daily, Disp: 100 each, Rfl: 3 lisinopriL (PRINIVIL,ZESTRIL) 2.5 mg tablet, Take 1 tablet (2.5 mg total) by mouth daily, Disp: 90 tablet, Rfl: 3 memantine (NAMENDA) 10 mg tablet, TAKE 1 TABLET BY MOUTH TWICE DAILY, Disp: 180 tablet, Rfl: 1 metFORMIN XR (GLUCOPHAGE XR) 500 mg 24 hr tablet, Take 1 tablet (500 mg total) by mouth daily with breakfast, Disp: 90 tablet, Rfl: 3 omega-3 fatty acids 1,000 mg capsule, Take by mouth, Disp: , Rfl: sodium chloride (TRISTAN 128) 5 % ophthalmic solution, Administer 1 drop into both eyes as needed, Disp: , Rfl: LORazepam (ATIVAN) 0.5 mg tablet, Take 1 tablet (0.5 mg total) by mouth as needed for anxiety, Disp: 30 tablet, Rfl: 5 Depression Screen: PHQ Screening Over the past 2 weeks, how often have you been bothered by any of the following problems? Little Interest or Pleasure in Doing Things: Not at all Feeling Down, Depressed, or Hopeless: Not at all PHQ-2 Total Score (If total score is 3 or more points, staff should administer the PHQ-9): 0 PHQ Screening PHQ-2 Total Score (If total score is 3 or more points, staff should administer the PHQ-9): 0 Review of Systems Constitutional: Negative for chills and fever. HENT: Negative for congestion. Eyes: Negative for blurred vision. Respiratory: Negative for cough. Cardiovascular: Negative for chest pain, palpitations and leg swelling. Gastrointestinal: Negative for abdominal pain. Genitourinary: Negative for dysuria and hematuria. Musculoskeletal: Negative for myalgias. Skin: Negative for rash. Neurological: Negative for dizziness, speech change and headaches. Psychiatric/Behavioral: Negative for depression. The patient is not nervous/anxious. All other systems reviewed and are negative. Vitals: Vitals BP 130/58 (BP Location: Left arm, Patient Position: Sitting) Pulse 76 Temp 36.8 ??C (98.3 ??F) Resp 16 Ht 149.9 cm (4' 11.02 ) Wt 57.5 kg (126 lb 12.8 oz) SpO2 99% BMI 25.60 kg/m?? Body mass index is 25.6 kg/m??. Exam: Physical Exam Vitals and nursing note reviewed. Constitutional: Appearance: Normal appearance. She is well-developed. HENT: Head: Normocephalic and atraumatic. Right Ear: Hearing, tympanic membrane, ear canal and external ear normal. There is no impacted cerumen. Left Ear: Hearing, tympanic membrane, ear canal and external ear normal. There is no impacted cerumen. Mouth/Throat: Mouth: Mucous membranes are moist. Pharynx: Oropharynx is clear. No posterior oropharyngeal erythema. Eyes: General: Lids are normal. No scleral icterus. Extraocular Movements: Extraocular movements intact. Conjunctiva/sclera: Conjunctivae normal. Neck: Thyroid: No thyromegaly. Cardiovascular: Rate and Rhythm: Normal rate and regular rhythm. Heart sounds: Normal heart sounds. No murmur heard. Pulmonary: Effort: Pulmonary effort is normal. Breath sounds: Normal breath sounds. No wheezing. Abdominal: General: Bowel sounds are normal. Palpations: Abdomen is soft. There is no mass. Tenderness: There is no abdominal tenderness. Musculoskeletal: General: Normal range of motion. Cervical back: Full passive range of motion without pain, normal range of motion and neck supple. Right lower leg: No edema. Left lower leg: No edema. Skin: General: Skin is warm and dry. [...] TRIG 92 09/26/2020 TRIG 92 03/24/2020 Chemistry Lab Results Component Value Date SODIUM 137 04/02/2022 POTASSIUM 3.8 04/02/2022 CHLORIDE 101 04/02/2022 CO2 28 04/02/2022 ANIONGAP 8 04/02/2022 BUNSER 12 04/02/2022 CREATININE 0.68 04/02/2022 GLUCOSE 84 04/02/2022 CALCIUM 9.3 04/02/2022 BILITOT 0.4 04/02/2022 PROTEIN 7.0 11/21/2017 ALBUMIN 3.7 04/02/2022 GFRNAA 88 04/02/2022 ALKPHOS 89 04/02/2022 AST 19 04/02/2022 ALT 12 04/02/2022 MAGNESIUM 2.2 08/10/2014 Lab Results Component Value Date HGBA1C 7.3 (H) 04/02/2022 Care Team Providers: Patient Care Team: Jocelynn Coy DO as PCP - General (Family Medicine) Brian Madera MD as Consulting Physician (Neurology) Primary Pharmacy/DME suppliers: [id number] [place] [address] [address] [facility] [address] [place] [address] [place] [id number] Detection of Cognitive Impairment: The patient does have cognitive impairment based on direct observation, discussion with patient or family, or review of medical records. Health Maintenance: Health Maintenance Topics with due status: Overdue Topic Date Due Dilated Eye Exam Never done Zoster Vaccine Never done Foot Exam 01/09/2022 Albumin Creatinine Ratio, Urine 09/04/2022 Hemoglobin A1C 10/01/2022 Covid-19 Vaccine 12/14/2022 Health Maintenance Topics with due status: Postponed Topic Postponed Until Osteoporosis Screening-Bone Density Scan 03/04/2045 (Originally 1940) Health Maintenance Topics with due status: Not Due Topic Last Completion Date DTaP/Tdap/Td Vaccine 01/14/2016 Lipid Panel 04/02/2022 eGFR 04/02/2022 Fall Risk Assessment 03/05/2023 Depression Screening-PHQ 03/05/2023 Well Visit 65+ 03/05/2023 Health Maintenance Topics with due status: Completed Topic Last Completion Date Pneumococcal vaccine 65+ 03/14/2018 Influenza Vaccine 03/05/2023 Counseling and Referral of Preventative Services: Lifestyle Recommendations Increase Physical Activity Advanced Directive Durable Power of Commercial Baker Helper: Discussed Today: Living Will: Discussed Today: Assessment and Plan: Diagnoses and all orders for this visit: Annual physical exam (Primary) Comments: Well exam, health maintenance updated. Hypertension associated with diabetes (HCC) Assessment & Plan: Blood pressure at goal less than 140/90, continue current prescription medications, amlodipine, lisinopril. Orders: - Comprehensive metabolic panel; Future - Lipid panel; Future Hyperlipidemia associated with type 2 diabetes mellitus (HCC) Assessment & Plan: LDL at goal of less than 100, continue current prescription medications, atorvastatin. Type 2 diabetes mellitus with hyperglycemia, without long-term current use of insulin ([facility]) (HCC) Assessment & Plan: A1c at goal of less than 8.0, continue current prescription medications, atorvastatin, lisinopril, metformin xr. Orders: - Comprehensive metabolic panel; Future - Hemoglobin A1c; Future - Albumin Creatinine Ratio, Urine; Future - Lipid panel; Future - Ambulatory referral to Podiatry 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) Assessment & Plan: Stable, currently on memantine. Doing well. Generalized anxiety disorder Assessment & Plan: Clinically improved, continue current prescription medications, lorazepam. Orders: - LORazepam (ATIVAN) 0.5 mg tablet; Take 1 tablet (0.5 mg total) by mouth as needed for anxiety Nail fungus Assessment & Plan: Referred back to podiatry for further treatments. Orders: - Ambulatory referral to Podiatry Need for influenza vaccination - Flu Vaccine Quad High Dose PF 65Y+ IM - Fluzone High Dose Quad Patient here for annual Medicare wellness visit and for review of complete medical problem list. All the elements of the plan were completed as outlined by CMS. A copy of the prevention plan was given to the patient. I reviewed Medicare Wellness Questionnaire (other physicians involved in care, depression screen, advanced directives), cognitive/memory, and functional assessment. I reviewed and updated the complete problem list, medication list, family history, and immunization records with the patient. I provided preventive counseling and early detection interventions to the patient through health maintenance update and summary of today's office visit. This note is dictated and transcribed by [employer] Direct [employer]. Car Racer variances may occur. Despite proofreading, typographical errors may occur. Jocelynn Coy DO E AND CENTER MARKER documented in this encounter Miscellaneous Notes * Assessment & Plan Note - Jocelynn Coy DO - 03/05/2023 1:36 PM GRADE AND CENTER MARKER Associated Problem(s): Hyperlipidemia associated with type 2 diabetes mellitus (HCC) LDL at goal of less than 100, continue current prescription medications, atorvastatin. E AND CENTER MARKER * Assessment & Plan Note - Jocelynn Coy DO - 03/05/2023 1:36 PM GRADE AND CENTER MARKER Associated Problem(s): Nail fungus Referred back to podiatry for further treatments. 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 Doing well. E AND CENTER MARKER * Assessment & Plan Note - Jocelynn Coy DO - 03/05/2023 1:35 PM GRADE AND CENTER MARKER Associated Problem(s): Type 2 diabetes mellitus with hyperglycemia, without long-term current use of insulin (HCC) A1c at goal of less than 8.0, continue current prescription medications, atorvastatin, lisinopril, metformin xr. E AND CENTER MARKER * Assessment & Plan Note - Jocelynn Coy DO - 03/05/2023 1:33 PM GRADE AND CENTER MARKER Associated Problem(s): Generalized anxiety disorder Clinically improved, continue current prescription medications, lorazepam. E AND CENTER MARKER * Assessment & Plan Note - Jocelynn Coy DO - 03/05/2023 1:31 PM GRADE AND CENTER MARKER Associated Problem(s): Hypertension associated with diabetes (HCC) Blood pressure at goal less than 140/90, continue current prescription medications, amlodipine, lisinopril. E AND CENTER MARKER documented in this encounter Plan of Treatment Scheduled Referrals Name Type Priority Associated Diagnoses Order Schedule Ambulatory referral to Podiatry Outpatient Referral Routine Type 2 diabetes mellitus with hyperglycemia, without long-term current use of insulin ([facility]/HCC) (HCC) Nail fungus Ordered: 03/05/2023 documented as of this encounter Results * Lipid panel (03/18/2023 1:58 PM GRADE AND CENTER MARKER) [facility] Cholesterol 167 30 - 199 mg/dL JOSE LIRIANO) Comment: Interpretive Data Ages [...] 2017. LDL, calculated 76 <=129 mg/dL JOSE LIRIANO) Comment: Interpretive Data Ages [...] YUKI MARCELINO (JANE) Blood 03/18/2023 1:58 PM GRADE AND CENTER MARKER 03/18/2023 3:53 PM GRADE AND CENTER MARKER us Jocelynn Coy DO LAB BLOOD ORDERABLES Final Result JOSE MARCELINO (JANE) 1 [facility] Department [place] [address] * Albumin Creatinine Ratio, Urine (03/18/2023 1:58 PM GRADE AND CENTER MARKER) Albumin Ur 47.4 mg/L JOSE Clarke (JANE) Comment: Interpretive Data No reference range established. Current interpretive data was last revised 2018. Testing performed by: [facility], [address] [place]., [address] Creatinine Ur 383.9 mg/dL JOSE [facility] (JANE) Comment: Interpretive Data No reference range established. Current interpretive data was last revised 2018. Testing performed by: [facility], [address] [place] [address]., [id number] Albumin Creatinine Ratio, Ur 12 1 - 29 mg/g JOSE [facility] (JANE) Comment:Testing performed by : [facility], [address] [place] [address]., [id number] Urine 03/18/2023 1:58 PM GRADE AND CENTER MARKER 03/19/2023 9:36 AM GRADE AND CENTER MARKER Jocelynn Coy DO LAB URINE ORDERABLES Final Result Performing Organization Address [facility] de Phone Number [facility] (JANE) 1 [facility] [place] [address] * (ABNORMAL) Hemoglobin A1c (03/18/2023 1:58 PM GRADE AND CENTER MARKER) Pathologist [facility] Hgb A1C 6.7(H) 4.0 - 5.6 % JOSE [facility] (JANE) Estimated Average Glucose 146 mg/dL JOSE [facility] (JANE) Comment: The ADA recommends reporting an estimated Average Glucose (eAG) with all Hemoglobin A1c results using the equation derived from a study of 507 normal and diabetic adults. ??Minority populations were underrepresented and children were not included. ?? (Diabetes Care 31:4236-6629, 2008). ??The eAG is not equivalent to a fasting glucose. Blood 03/18/2023 1:58 PM GRADE AND CENTER MARKER 03/18/2023 3:53 PM GRADE AND CENTER MARKER Jocelynn Coy DO LAB BLOOD ORDERABLES Final Result Performing Organization Address [facility] Co de Phone Number [facility] (EEK) 1 [facility] [place] [address] * Comprehensive metabolic panel (03/18/2023 1:58 PM GRADE AND CENTER MARKER) Sodium 137 135 - 145 mmol/L JOSE [facility] (JANE) Potassium, pl 4.2 3.3 - 4.9 mmol/L [facility] (JANE) Chloride 102 97 - 110 mmol/L [facility] (JANE) CO2 26 22 - 32 mmol/L [facility] (JANE) Anion gap 10 2 - 15 mmol/L [facility] (JANE) BUN 19 6 - 25 mg/dL [facility] (JANE) Creatinine 0.96 0.60 - 1.10 mg/dL [facility] (JANE) Glucose 107 70 - 199 mg/dL [facility] (JANE) [...] 45 Units/L [facility] (JANE) Blood 03/18/2023 1:5 8 PM GRADE AND CENTER MARKER 03/18/2023 3:53 PM GRADE AND CENTER MARKER us Jocelynn Coy DO LAB BLOOD ORDERABLES Final Result [facility] (JANE) 1 [facility] [place] [address] documented in this encounter Visit Diagnoses Diagnosis Annual physical exam- Primary Routine general medical examination at a health care facility Hypertension associated with diabetes (HCC) Unspecified essential hypertension Hyperlipidemia associated with type 2 diabetes mellitus (HCC) Type 2 diabetes mellitus with hyperglycemia, without long-term current use of insulin (HCC) 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) Generalized anxiety disorder Nail fungus Need for influenza vaccination Need for prophylactic vaccination and inoculation against influenza documented in this encounter Discontinued Medications Medication Sig Discontinue Reason Start Date End Da te LORazepam (ATIVAN) 0.5 mg tabletIndications:Genera lized anxiety disorder Take 1 tablet (0.5 mg total) by mouth as needed for anxiety Reorder 09/20/2022 03/05/2023 documented as of this encounter Historical Medications * This list may reflect changes made after this encounter. sodium chloride (TRISTAN 128) 5 % ophthalmic solution Administer 1 drop into both eyes as needed 02/27/2023 added in this encounter Orders Immunization/Injection Count Last Ordered Date First Ordered Date FLU VACCINE HIGH DOSE QUAD P F 65Y+ IM - FLUZONE HIGH DOS 1 03/05/2023 documented in this encounter Care Teams Nailer Machine Relationship Specialty Start Date End Date Jocelynn Coy DO PCP - General Family Medicine 06/10/17 09/02/23 Brian Madera MD [address] [place] [address] [place] [address] Consulting Physician Neurology 04/02/22 documented as of this encounter
--- OUTSIDE RECORDS SUMMARY | 2024-03-31 14:21 | XMS_ITS | Encounter Summary ---
Author Organization [facility] Healthcare Address [address] [place] [address] Care Team Providers Care Automatic Folder Seamer Name Role Phone Jocelynn Coy DO Primary Care Provider [phone] Brian Madera MD Unavailable [phone] Reason for Visit * Reason Onset Date Comments Medical Question/Miscellaneous 05/20/2023 Encounter Details Date Type Department Care Team (Late st Contact Info) Description 05/20/2023 Telephone [facility] Medical [facility] Primary Care at [address] [place] [address] [place] [address] [place] [address] [place] [address] Medical Question/Miscellaneous Social History Tobacco [...] on file Legal Sex Female 8:45 PM QUARRYING SPECIALIST Gender Identity Female 04/25/2021 2:46 PM QUARRYING SPECIALIST Sexual Orientation Straight 04/25/2021 2: 46 PM QUARRYING SPECIALIST documented as of this encounter Miscellaneous Notes * Telephone Encounter - Letitia Velásquez MA - 05/21/2023 12:04 PM CST I spoke with patients kesha Deal and relayed message from Dr. Coy. Thank you, Letitia Goodson [facility] Summer School Coordinator [facility] ACO [phone] RYING SPECIALIST * Telephone Encounter - Delphine Key MA - 05/20/2023 10:41 AM CST Attempted to contact patients kesha Deal, with no answer. Left message to contact the office back. If Annita calls back, please relay message from . RYING SPECIALIST * Telephone Encounter - Delphine Key MA - 05/20/2023 10:16 AM CST Medication has been d/c and listed as allergy list for hallucinations RYING SPECIALIST * Telephone Encounter - Gabrielle Rivera MA - 05/20/2023 9:17 AM CST Medical Question/Miscellaneous Caller???s Concern: Patient'clara Deal verified on HIPAA is calling in to see if Dr Coy the doctorthinks the patient should continue to taking the Quetiapine or stop taking. She states that the patient is beginning to have the hallucinations again at night and seems to get more agitated easily. The patient does have dementia. The patient believes the medication is causing the problem and the daughter says she tends to agree with her. Please advise and thank you so much. Does message need to be routed? Yes-Action Needed RYING SPECIALIST documented in this encounter Plan of Treatment Not on file documented as of this encounter Visit Diagnoses Not on filedocumented in this encounter Discontinued Medications Medication Sig Discontinue Reason Start Date End Da te QUEtiapine (SEROquel) 25 mg tabletIndications:Genera lized Anxiety Disorder Take 1 tablet (25 mg total) by mouth 2 (two) times a day Patient Discharge 04/25/2023 05/20/2023 documented as of this encounter Additional Health Concerns Infection Onset Date Last Indicated Resolved Time COVID: Recovered Comment:Added based on recent COVID infection. 05/01/2023 05/03/2023 07/30/2023 3:06 AM C DT documented as of this encounter Care Teams Automatic Folder Seamer Relationship Specialty Start Date End Date Jocelynn Coy DO PCP - General Family Medicine 06/10/17 09/02/23 Brian Madera MD [address] [facility] [address] [facility] [place] [address] Consulting Physician Neurology 04/02/22 documented as of this encounter
--- OUTSIDE RECORDS SUMMARY | 2024-03-31 14:21 | XMS_ITS | Encounter Summary ---
Author Organization [facility] Healthcare Address [address] [place] [address] Care Team Providers Care Distribution Technician Name Role Phone Jocelynn Coy DO Primary Care Provider [phone] Brian Madrea MD Unavailable [phone] Reason for Visit * Reason Comments Hospital Follow Up Hallucinations/COVID Encounter Details Date Type Department Care Team (Late st Contact Info) Description 04/25/2023 2:15 PM BUSINESS DEAN Telemedicine [facility] Medical Group Primary Care at [address] [place] [address] Jocelynn Coy DO [address] [facility] [facility] [address] [place], [place] [id number] COVID-19 (Primary Dx); Generalized anxiety disorder; Hallucinations Social History Tobacco Use Types Packs/Day Years [...] on file Legal Sex Female 8:45 PM BUSINESS DEAN Gender Identity Female 04/25/2021 2:46 PM BUSINESS DEAN Sexual Orientation Straight 04/25/2021 2: 46 PM BUSINESS DEAN documented as of this encounter Last Filed Vital Signs Vital Sign Reading Time Taken Comments Blood Pressure - - Pulse - - Temperature - - Respiratory Rate - - Oxygen Saturation - - Inhaled Oxygen Concentration - - Weight 61.7 kg (136 lb) 04/25/2023 2:17 PM BUSINESS DEAN Height 149.9 cm (4' 11 ) 04/25/2023 2:17 PM BUSINESS DEAN Body Mass Index 27.47 04/25/2023 2:17 PM BUSINESS DEAN documented in this encounter Patient Instructions * Patient Instructions* Jocelynn Coy DO - 04/25/2023 2:15 PM BUSINESS DEAN Health Maintenance Topics with due status: Overdue Topic Date Due Dilated Eye Exam Never done Zoster Vaccine Never done Foot Exam 01/09/2022 Covid-19 Vaccine 12/14/2022 Thanks for coming in today! My medical facilities section director and I are thankful you have trusted us with your care, and hope that you received EXCELLENT care today! Although some conditions may not allow immediate improvement, I aim to always make you feel a little better leaving, than when you came in. [place] not hesitate to call, if you have any questions or concerns, at [phone]. You may receive a phone call, text, MYCHART message, or e-mail asking you to take a survey about your care today. We would love to hear your feedback on how EXCELLENT your care was today! Wishing you better health, always! Dr. Jocelynn Coy NESS DEAN * Attachments The following attachments cannot be sent through Care Everywhere. * Hallucinations (Small Engine Mechanic) (Trinidadian) * Prevent Infections (Small Engine Mechanic) (Trinidadian) documented in this encounter Ordered Prescriptions Prescription Sig Dispense Quantity Refills Last Filled Start Date End Date QUEtiapine (SEROquel) 25 mg tabletIndications: Generalized Anxiety Disorder Take 1 tablet (25 mg total) by mouth 2 (two) times a day 60 tablet 5 04/25/2023 05/20/2023 documented in this encounter Progress Notes * Jocelynn Coy DO - 04/25/2023 2:15 PM CST Images from the original note were not included. This was a telemedicine visit with Annita Bose and Toyin ( daughter) which took place via real-time video connection. During the visit, I was located in the office and the patient was located at home in the [facility]. The patient visit started at 1427 hrs and ended at 1442 hrs. My total encounter time on 04/25/2023 was 15 minutes which was spent in the activities documented in the note. This includes time spent prior to the visit and after the visit in direct care of the patient. This time does not include time spent in any separately reportable services. I have explained the option of participating in a telemedicine visit to the patient. After being given an opportunity to ask questions about and discuss this type of visit, the patient verbally consented to proceeding with the telemedicine visit. The patient understands that this service replaces an office visit and they may be billed and/or responsible for any applicable copayments. Jocelynn Coy DO Patient ID: Annita Bose is a 82 y.o. female. Assessment/Plan Diagnoses and all orders for this visit: COVID-19 (Primary) Comments: Clinically improving. Generalized anxiety disorder Assessment & Plan: Will add Seroquel to daily regiment. Continue lorazepam as needed. Orders: - QUEtiapine (SEROquel) 25 mg tablet; Take 1 tablet (25 mg total) by mouth 2 (two) times a day Hallucinations Assessment & Plan: New start on Seroquel, take as directed. Re-evaluate need of continued use of medication at next appointment. Orders: - QUEtiapine (SEROquel) 25 mg tablet; Take 1 tablet (25 mg total) by mouth 2 (two) times a day Follow up keep next scheduled appointment Chief Complaint Subjective/Objective Hospital Follow Up (Hallucinations/COVID) Patient recently diagnosed with COVID-19 virus. She was seen and treated in the emergency room. She is following up. Patient's daughter, Toyin, is helping with her HPI and video call. Patient reports that she is feeling okay. She does not have any complaints. Review of Systems Unable to perform ROS: Dementia (Daughter helps with review of systems) Constitutional: Positive for chills and fatigue. HENT: Positive for sore throat (improving). Respiratory: Positive for cough. Cardiovascular: Negative for chest pain. Genitourinary: Frequency: Occasional. Skin: Negative for rash. Psychiatric/Behavioral: Positive for hallucinations (new onset with COVID-19 virus was improved with trazodone, however over the past few days the hallucinations have increased). Negative for self-injury and suicidal ideas. The patient is nervous/anxious. All other systems reviewed and are negative. Ht 149.9 cm (4' 11 ) Wt 61.7 kg (136 lb) BMI 27.47 kg/m?? Ht Readings from Last 3 Encounters: 04/25/23 149.9 cm (4' 11 ) 04/21/23 149.9 cm (4' 11 ) 03/18/23 149.9 cm (4' 11.02 ) Wt Readings from Last 3 Encounters: 04/25/23 61.7 kg (136 lb) 04/21/23 61.2 kg (135 lb) 03/18/23 57.2 kg (126 lb) Temp Readings from Last 3 Encounters: 04/21/23 36.7 ??C (98.1 ??F) (Temporal) 03/05/23 36.8 ??C (98.3 ??F) 09/20/22 36.6 ??C (97.8 ??F) (Oral) BP Readings from Last 3 Encounters: 04/21/23 160/68 03/18/23 110/52 03/05/23 130/58 Pulse Readings from Last 3 Encounters: 04/21/23 63 03/18/23 71 03/05/23 76 BP Readings from Last 3 Encounters: 04/21/23 160/68 03/18/23 110/52 03/05/23 130/58 Physical Exam Vitals and nursing note reviewed. Constitutional: Appearance: Normal appearance. HENT: Head: Normocephalic and atraumatic. Pulmonary: Effort: No respiratory distress. Neurological: Mental Status: She is alert. Psychiatric: Mood and Affect: Mood normal. Comments: Cooperative, laughs easily. Modified, as this is a telehealth visit today I, Jocelynn Coy DO have personally reviewed all Hospital/ER data including [employer] and Care Everywhere if available. This patient's discharge medication list has been reviewed and reconciled with his medication list in the office chart and has also been reviewed with patient and/or caregiver. I have noted any changes. This note is dictated and transcribed by [employer] Direct Software. Planting Material Remover variances may occur. Despite proofreading, typographical errors may occur. Jocelynn Coy DO NESS DEAN documented in this encounter Miscellaneous Notes * Assessment & Plan Note - Jocelynn Coy DO - 04/25/2023 2:42 PM BUSINESS DEAN Associated Problem(s): Hallucinations New start on Seroquel, take as directed. Re-evaluate need of continued use of medication at next appointment. NESS DEAN * Assessment & Plan Note - Jocelynn Coy DO - 04/25/2023 2:41 PM BUSINESS DEAN Associated Problem(s): Generalized anxiety disorder Will add Seroquel to daily regiment. Continue lorazepam as needed. NESS DEAN documented in this encounter Plan of Treatment Not on file documented as of this encounter Visit Diagnoses Diagnosis COVID-19- Primary Generalized anxiety disorder Hallucinations documented in this encounter Additional Health Concerns Infection Onset Date Last Indicated Resolved Time COVID19 04/21/2023 04/21/2023 05/01/2023 3:05 AM BUSINESS DEAN documented as of this encounter Care Teams Distribution Technician Relationship Specialty Start Date End Date Jocelynn Coy DO PCP - General Family Medicine 06/10/17 09/02/23 Brian Madera MD [address] [facility] [address] Consulting Physician Neurology 04/02/22 documented as of this encounter
--- OUTSIDE RECORDS SUMMARY | 2024-03-31 14:21 | XMS_ITS | Encounter Summary ---
Author Organization [facility] Medical [facility] Address [address] [place] [address] Care Team Providers Care Manager Data Warehousing Name Role Phone Jocelynn Coy Primary Care Provider [phone] Brian Madera MD Unavailable [phone] Reason for Visit * Reason Onset Date Comments ACO Quality Outreach 07/12/2022 Encounter Details Date Type Department Care Team (Late st Contact Info) Description 07/12/2022 Telephone [facility] Primary Care at [address] [place] [address] Tatum Caldwell [address] [place] [address] [address] [facility] [address] [place] [address] ACO Quality Outreach Social History Tobacco Use Types Packs/Day Years [...] on file Legal Sex Female 8:45 PM GENDER STUDIES PROFESSOR Gender Identity Female 04/25/2021 2:46 PM GENDER STUDIES PROFESSOR Sexual Orientation Straight 04/25/2021 2: 46 PM GENDER STUDIES PROFESSOR documented as of this encounter Miscellaneous Notes * Telephone Encounter - Tatum Caldwell - 07/12/2022 3:11 PM CDT Patient has been identified by their insurance plan to have a KED gap in care. Chart has been scrubbed and orders placed . Tatum Caldwell Patient Outreach Fuel Truck Driver [facility]- ACO [phone] documented in this encounter Plan of Treatment Not on file documented as of this encounter Visit Diagnoses Diagnosis Type 2 diabetes mellitus with hyperglycemia, without long-term current use of insulin (HCC)- Primary documented in this encounter Care Teams Manager Data Warehousing Relationship Specialty Start Date End Date Jocelynn Coy DO PCP - General Family Medicine 06/10/17 09/02/23 Brian Madera MD [address] [facility] [address] [facility] [place] [address] Consulting Physician Neurology 04/02/22 documented as of this encounter
--- OUTSIDE RECORDS SUMMARY | 2024-03-31 14:21 | XMS_ITS | Encounter Summary ---
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) Jocelynn Coy DO Phone: tel: fax: Brian Madera MD [address] [place] [address] [address] [place] [address] Phone: tel: fax: Referral ID Status Reason Start Date Expiration Date V isits Requested Visits Authorized [id number] Closed Specialty Services Required 09/04/2021 04/14/2023 12 12 Encounter Details Date Type Department Care Team (Late st Contact Info) Description 08/10/2022 11:30 AM CDT Office Visit [facility] [address] [place] [id number] Kate Diaz NP [address] [place] [address] Late onset Alzheimer's dementia without behavioral disturbance [...] on file Legal Sex Female 8:45 PM BARKER OPERATOR Gender Identity Female 04/25/2021 2:46 PM BARKER OPERATOR Sexual Orientation Straight 04/25/2021 2: 46 PM BARKER OPERATOR documented as of this encounter Last Filed Vital Signs Vital Sign Reading Time Taken Comments Blood Pressure 117/61 08/10/2022 11:38 AM CDT Pulse 77 08/10/2022 11:38 AM CDT Temperature - - Respiratory Rate - - Oxygen Saturation 93% 08/10/2022 11:38 AM CDT Inhaled Oxygen Concentration - - Weight 60.8 kg (134 lb) 08/10/2022 11:38 AM CDT Height 149.9 cm (4' 11 ) 08/10/2022 11:38 AM CDT Body Mass Index 27.06 08/10/2022 11:38 AM CDT documented in this encounter Progress Notes * Kate Diaz, SUEDING MACHINE OPERATOR - 08/10/2022 11:30 AM CDT Subjective/Objective Patient ID: Annita Bose is a 81 y.o. female. Chief Complaint I am seeing this 81 y.o. female in consultation requested by Dr. Jocelynn Coy DO for dementia. HPI For details, see 11/17/2021 note. Since last visit on 02/08/2022, no change with memory per her report. Her daughter accompanies her.She had MRI of the brain which showed no acute intracranial process. No evidence of hydrocephalus. Slight periventricular nonspecific small vessel white matter disease. Vitamin B12, folic acid and vit woodruff B6 were unremarkable. CSF Alzheimer's dementia biomarker showed elevated p- Tau/Abeta42 ratio which is consistent with the presence of pathological changes associated with Alzheimer's disease. She has significant skin irritation with Exelon patch. Past medical history: Hypertension Hyperlipidemia Cataract No Known Allergies Current Outpatient Medications Medication Sig Dispense Refill amLODIPine (NORVASC) 10 mg tablet Take 1 tablet (10 mg total) by mouth daily 90 tablet 3 atorvastatin (LIPITOR) 20 mg tablet TAKE 1 TABLET BY MOUTH EVERY DAY 90 tablet 1 blood glucose diagnostic strip [...] TABLET BY MOUTH EVERY DAY 90 tablet 3 LORazepam (ATIVAN) 0.5 mg tablet Take 1 tablet (0.5 mg total) by mouth as needed for anxiety 30 tablet 5 memantine (NAMENDA) 10 mg tablet TAKE 1/2 TABLET BY MOUTH TWICE DAILY FOR 2 WEEKS, THEN TAKE 1 TABLET BY MOUTH TWICE DAILY 180 tablet 1 metFORMIN XR (GLUCOPHAGE XR) 500 mg 24 hr tablet TAKE 1 TABLET BY MOUTH EVERY DAY WITH BREAKFAST 90tablet 3 omega-3 fatty acids 1,000 mg capsule Take by mouth No current facility-administered medications for this visit. has a current medication list which includes the following prescription(s): amlodipine, atorvastatin, blood glucose diagnostic, blood-glucose meter, coenzyme q10, lancets, lisinopril, lorazepam, memantine, metformin xr, and omega-3 fatty acids. Family History Problem Relation Age of Onset Stomach cancer Sister Social History Tobacco Use Smoking status: Never Smokeless tobacco: Never Substance and Sexual Activity Drug use: No Sexual activity: None Alcohol Use: Not on file BP 117/61 Pulse 77 Ht 149.9 cm (4' 11 ) Wt 60.8 kg (134 lb) SpO2 93% BMI 27.06 kg/m?? Physical Exam Mental status: alert, speech [...] for dementia. History is kind of limited. Rosales cognitive assessment today showed [place] cognitive assessment 15/30 (visuospatial/executive -4, naming -1, attention -4, language -2, delayed recall -5, orientation -1). CSF Alzheimer's disease biomarker is supportive diagnosis of Alzheimer's dementia. Exelon patch caused skin irritation. 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 b.i.d. for 2 weeks, then 1 tablet p.o. b.i.d. Review of investigations: [...] attention -4, language -2, delayed recall -5) Return in about 6 months (around 02/09/2023). 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
--- OUTSIDE RECORDS SUMMARY | 2024-03-31 14:22 | XMS_ITS | Encounter Summary ---
Author Organization [facility] Address [address] [address] Care Team Providers Care Water Manager Name Role Phone Jocelynn Coy Primary Care Provider [phone] Reason for Referral * Procedure (Routine) - Closed Specialty Diagnoses / Procedures Referred By Jamaal chiang Referred To Contact Diagnoses Abscess of skin of neck Procedures Incision and Drainage Vijaya Dunham PA [address] [facility] [place] [address] Phone: tel: fax: [facility] Referral ID Status Reason Start Date Expiration Date Visits Re quested Visits Authorized [id number] Closed 11/06/2021 12/06/2022 1 1 Reason for Visit * Reason Comments Abscess Left side of neck maurer s been here previously for this August of last year. But the past couple weeks daughter noticed it and some drained today Encounter Details Date Type Department Care Team (Late st Contact Info) Description 11/06/2021 7:15 PM CDT Office Visit [facility] [address] [place] [id number] Vijaya Dunham PA [address] [facility] [place] [address] Abscess of skin of neck (Primary Dx) Social History Tobacco Use Types Packs/Day Years Used Date Smoking Tobacco: Never Smokeless Tobacco: Never Alcohol Use Standard Drinks/Week Comments No 0 (1 standard drink = 0.6 oz pur e alcohol) PHQ-2 Answer Date Recorded PHQ-2 Total Score (If total score is 3 or more points, staff should administer the PHQ-9) 0 10/06/2021 Comments Unknown Sex and Gender Information Value Date Recorded Sex Assigned at Not on file Legal Sex Female 8:45 PM FOREIGN CORRESPONDENT Gender Identity Female 04/25/2021 2:46 PM FOREIGN CORRESPONDENT Sexual Orientation Straight 04/25/2021 2: 46 PM FOREIGN CORRESPONDENT documented as of this encounter Last Filed Vital Signs Vital Sign Reading Time Taken Comments Blood Pressure 140/62 11/06/2021 6:50 PM CDT Pulse 74 11/06/2021 6:50 PM CDT Temperature 37 ??C (98.6 ??F) 11/06/2021 6:50 PM CDT Respiratory Rate 18 11/06/2021 6:50 PM CDT Oxygen Saturation 98% 11/06/2021 6:50 PM CDT Inhaled Oxygen Concentration - - Weight 57.2 kg (126 lb) 11/06/2021 6:50 PM CDT Height 149.9 cm (4' 11.02 ) 11/06/2021 6:50 PM C DT Body Mass Index 25.43 11/06/2021 6:50 PM CDT documented in this encounter Patient Instructions * Patient Instructions* Vijaya Dunham PA - 11/06/2021 7:15 PM CDT Take the antibiotics as prescribed. Keep the area clean and dry. Apply antibiotic ointment to the area daily. Change your dressings as needed to keep them clean and dry. Follow up with your primary care provider in a few days to have the abscess rechecked. * Attachments The following attachments cannot be sent through Care Everywhere. * Abscess (Tack Driller) (Tu[place]uan) documented in this encounter Ordered Prescriptions Prescription Sig Dispense Quantity Refills Last Filled Start Date End Date sulfamethoxazole-t rimethoprim (BACTRIM DS) 800-160 mg per tabletIndications: Abscess of skin of neck Take 1 tablet by mouth 2 (two) times a day for 7 days 14 tablet 11/06/2021 11/13/2021 documented in this encounter Progress Notes * Vijaya Dunham, HERMINIA - 11/06/2021 7:15 PM CDTAssociated Order(s): Incision and Drainage Post-Procedure Diagnose(s): Abscess of skin of neck Images from the original note were not included. Subjective/Objective Patient ID: Annita Bose is a 81 y.o. female. Chief Complaint Abscess (Left side of neck has been here previously for this August of last year. But the past couple weeks daughter noticed it and some drained today ) Patient is an 81-year-old female with history of HTN, HLD, DM II, dementia, presenting for evaluation of an abscess to the left side of her neck. She states that she had a similar abscess last year that resolved with drainage and antibiotics. She states that the abscess has now been present for a few weeks. She states that it has been draining for a few days. She denies a fever, difficulty swallowing, or any other symptoms. Review of Systems Constitutional: Negative for fever. HENT: Negative for trouble swallowing. Skin: Positive for abscess to left side of neck Physical Exam Constitutional: General: She is not in acute distress. Appearance: Normal appearance. She is not ill-appearing or toxic-appearing. HENT: Head: Normocephalic. Nose: Nose normal. Mouth/Throat: Mouth: Mucous membranes are moist. Pharynx: Oropharynx is clear. Eyes: General: Lids are normal. Extraocular Movements: Extraocular movements intact. Conjunctiva/sclera: Conjunctivae normal. Pupils: Pupils are equal, round, and reactive to light. Cardiovascular: Rate and Rhythm: Normal rate and regular rhythm. Heart sounds: Normal heart sounds. Pulmonary: Effort: Pulmonary effort is normal. Breath sounds: Normal breath sounds and air entry. Musculoskeletal: General: Normal range of motion. Cervical back: Normal range of motion and neck supple. Skin: General: Skin is warm and dry. Comments: Abscess to the left side of the neck measuring approximately 1.5 x 1 cm with minimal active drainage Neurological: General: No focal deficit present. Mental Status: She is alert and oriented to person, place, and time. Mental status is at baseline. Psychiatric: Mood and Affect: Mood normal. Behavior: Behavior normal. Vitals: 11/06/21 1850 BP: 140/62 Pulse: 74 Resp: 18 Temp: 37 ??C (98.6 ??F) TempSrc: Temporal SpO2: 98% Weight: 57.2 kg (126 lb) Height: 149.9 cm (4' 11.02 ) Incision and Drainage Performed by: Vijaya Dunham PA Authorized by: Vijaya Dunham PA Consent Given by: Patient Verbal consent obtained: Yes Type: Abscess Body area: Neck Location details: Left anterior neck Anesthesia: Local infiltration Local anesthetic: Lidocaine 1% without epinephrine Scalpel size: 11 Incision type: Single straight Complexity: Simple Drainage: Purulent Drainage amount: Moderate Packing material: None Patient tolerance: Patient tolerated the procedure well with no immediate complications Assessment/Plan Take the antibiotics as prescribed. Keep the area clean and dry. Apply antibiotic ointment to the area daily. Change your dressings as needed to keep them clean and dry. Follow up with your primary care provider in a few days to have the abscess rechecked. Diagnoses and all orders for this visit: Abscess of skin of neck (Primary) - lidocaine (XYLOCAINE) 10 mg/mL (1 %) injection 50 mg - sulfamethoxazole-trimethoprim (BACTRIM DS) 800-160 mg per tablet; Take 1 tablet by mouth 2 (two) times a day for 7 days - Incision and Drainage - Aerobic and anaerobic culture and gram stain Abscess Neck, left; Future No results found for this or any previous visit (from the past 4 hour(s)). Patient Education: Disposition ??? Treatment plan including expectations, follow up, and return precautions discussed with patient/parent, verbalizes understanding. ??? Medication dosage, use, and potential adverse reactions discussed with patient/parent. ??? Advised to follow up with PCP if symptoms do not resolve as expected or sooner if condition worsens. ??? Signs/symptoms warranting ER evaluation reviewed. ??? Patient and/or guardian was given an opportunity to ask questions, questions answered. HERMINIA Chang PA Cosigned by Jocelynn Coy DO at 11/07/2021 4:58 PM CDT documented in this encounter Plan of Treatment Not on file documented as of this encounter Procedures Procedure Name Priority Date/Time Associated Diagnosis Comments VA INCISION & DRAINAGE ABSCESS SIMPLE/SINGLE Routine 11/06/2021 7:15 PM CDT Abscess of skin of neck documented in this encounter Results * (ABNORMAL) Aerobic and anaerobic culture and gram stain Abscess Neck, left (11/06/2021 7:24 PM CDT) Direct Specimen Exam Stain: Rare polymorphonuclear leukocytes seen. Few Gram Positive Cocci JOSE Comment:Testing performed by : [facility], [address] [place]., [address] Report Final Report: Few Finegoldia magna (.) JOSE WORKMAN Comment:Testing performed by : [facility], [address] [place]., [address] Organism FINEGOLDIA MAGNA JOSE Abscess (Neck, left) 11/06/2021 7:24 PM CDT 11/07/2021 9:57 AM CDT Narrative JOSE - 11/13/2021 1:17 PM CDT Testing performed by [facility] ([phone]) Specimens submitted from normally sterile body sites will have all bacterial morphotypes identified. Specimens that contain grossly mixed tani and/or are from body sites that are not normally sterile will be examined for Staphylococcus aureus, Pseudomonas aeruginosa, beta-hemolytic strep, vancomycin-resistant Enterococcus, Bacteroides, Parabacteroides, Clostridium perfringens and fungus. If any of these are isolated, the organism will be reported. Current interpretive data was last revised on 2019. us Vijaya [facility]CRO[facility] - GENERAL ORDERABLES Final Result JOSE WORKMAN [id number] Department [place] [address] * VA INCISION & DRAINAGE ABSCESS SIMPLE/SINGLE (11/06/2021 7:15 PM CDT) Narrative Jocelynn Coy DO - 11/06/2021 7:15 PM CDT Vijaya Dunham PA ? 11/06/2021 ??7:25 PM Incision and Drainage Performed by: Vijaya Dunham PA Authorized by: Vijaya Dunham PA Consent Given by: ??Patient Verbal consent obtained: Yes ?? Type: ??Abscess Body area: ??Neck Location details: ??Left anterior neck Anesthesia: ??Local infiltration Local anesthetic: ??Lidocaine 1% without epinephrine Scalpel size: ??11 Incision type: ??Single straight Complexity: ??Simple Drainage: ??Purulent Drainage amount: ??Moderate Packing material: ??None Patient tolerance: ??Patient tolerated the procedure well with no immediate complications us Vijaya [facility] Final Result documented in this encounter Visit Diagnoses Diagnosis Abscess of skin of neck- Primary Abscess of skin of neck documented in this encounter Orders Medications Ordered That Kyle ht Not Have Been Administered Count Last Ordered Date First Ordered Date lidocaine (XYLOCAINE) 10 mg/ mL (1 %) injection 100 mg 1 11/06/2021 lidocaine (XYLOCAINE) 10 mg/ mL (1 %) injection 50 mg 1 11/06/2021 documented in this encounter Care Teams Water Manager Relationship Specialty Start Date End Date Jocelynn Coy DO PCP - General Family Medicine 06/10/17 09/02/23 documented as of this encounter
--- OUTSIDE RECORDS SUMMARY | 2024-03-31 14:22 | XMS_ITS | Encounter Summary ---
Author Organization [facility] Address [address] [place] [address] Care Team Providers Care Commercial Property Manager Name Role Phone Jocelynn Coy DO Primary Care Provider [phone]- [phone] Reason for Visit * Reason Comments Essence Enhanced Encounter Encounter Details Date Type Department Care Team (Late st Contact Info) Description 03/30/2021 2:15 PM DIE CAST OPERATOR Office Visit [facility] [address] [place] [id number] Jocelynn Coy DO [address] [facility] [address] [address] Annual physical exam (Primary Dx); Hyperlipidemia associated with type 2 diabetes mellitus (HCC); Generalized anxiety disorder; 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 (CMS/HCC) (HCC) Social History Tobacco Use Types Packs/Day Years Used Date Smoking Tobacco: Never Smokeless Tobacco: Never Alcohol Use Standard Drinks/Week Comments No 0 (1 standard drink = 0.6 oz pur e alcohol) PHQ-2 Answer Date Recorded PHQ-2 Total Score (If total score is 3 or more points, staff should administer the PHQ-9) 0 03/30/2021 Comments Unknown Sex and Gender Information Value Date Recorded Sex Assigned at Not on file Legal Sex Female 8:45 PM DIE CAST OPERATOR Gender Identity Female 04/25/2021 2:46 PM DIE CAST OPERATOR Sexual Orientation Straight 04/25/2021 2: 46 PM DIE CAST OPERATOR documented as of this encounter Last Filed Vital Signs Vital Sign Reading Time Taken Comments Blood Pressure 108/50 03/30/2021 2:21 PM DIE CAST OPERATOR Pulse 67 03/30/2021 2:21 PM DIE CAST OPERATOR Temperature 36.5 ??C (97.7 ??F) 03/30/2021 2:21 PM CS T Respiratory Rate 16 03/30/2021 2:21 PM DIE CAST OPERATOR Oxygen Saturation 98% 03/30/2021 2:21 PM DIE CAST OPERATOR Inhaled Oxygen Concentration - - Weight 59.7 kg (131 lb 11.2 oz) 03/30/2021 2:21 PM DIE CAST OPERATOR Height 149.9 cm (4' 11.02 ) 03/30/2021 2:[address] Body Mass Index 26.59 03/30/2021 2:21 PM DIE CAST OPERATOR documented in this encounter Patient Instructions * Patient Instructions* Jocelynn Coy, DO - 03/30/2021 2:15 PM DIE CAST OPERATOR Images from the original note were not included. Patient Education Wellness Visit for Adults DINKEY LOCOMOTIVE ENGINEER: A wellness visit is when you see [...] alcohol. Any of the following may bedone: ?? Your weight will be checked. Your height may also be checked so your body mass index (BMI) can be calculated. Your BMI shows if you are at a healthy weight. ?? Your blood pressure and heart rate will be checked. Your temperature may also be checked. ?? Blood and urine tests may be done. Blood tests may be done to check your cholesterol levels. Abnormal cholesterol levels increase your risk for heart disease and stroke. You may also need a blood or urine test to check for diabetes if you are at increased risk. Urine tests may be done to look for signs of an infection or kidney disease. ?? A physical exam includes checking your heartbeat and lungs with a stethoscope. Your healthcare provider may also check your skin to look for sun damage. ?? Screening tests may be recommended. A screening test is done to check for diseases that may not cause symptoms. The screening tests you may need depend on your age, gender, family history, and lifestyle habits. For example, colorectal screening may be recommended if you are 50 years old or older. Screening tests you need if you are a woman: ?? A Pap smear is used to screen for cervical cancer. Pap smears are usually done every 3 to 5 years depending on your age. You may need them more often if you have had abnormal Pap smear test results in the past. Ask your healthcare provider how often you should have a Pap smear. ?? A mammogram is an x-ray of your breasts to screen for breast cancer. Experts recommend mammograms every 2 years starting at age 50 years. You may need a mammogram at age 49 years or younger if youhave an increased risk for breast cancer. Talk to your healthcare provider about when you should start having mammograms and how often you need them. Vaccines you may need: ?? Get an influenza vaccine every year. The influenza vaccine protects you from the flu. Several types of viruses cause the flu. The viruses global climate change researcher time, so new vaccines are made each year. ?? Get a tetanus-diphtheria (Td) booster vaccine every 10 years. This vaccine protects you against tetanus and diphtheria. Tetanus is a severe infection that may cause painful muscle spasms and lockjaw. Diphtheria is a severe bacterial infection that causes a thick covering in the back of your mouth and throat. ?? Get a human papillomavirus (HPV) vaccine if you are female and aged 19 to 26 or male 19 to 21 and never received it. This vaccine protects you from HPV infection. HPV is the most common infection spread by sexual contact. HPV may also cause vaginal, penile, and anal cancers. ?? Get a pneumococcal vaccine if you are aged 65 years or older. The pneumococcal vaccine is an injection given to protect you from pneumococcal disease. Pneumococcal disease is an infection caused by pneumococcal bacteria. The infection may cause pneumonia, meningitis, or an ear infection. ?? Get a shingles vaccine if you are aged 60 or older, even if you have had shingles before. The shingles vaccine is an injection to protect you from the varicella-zoster virus. This is the same virus that causes chickenpox. Shingles is a painful rash that develops in people who had chickenpox or have been exposed to the virus. How to eat healthy: [...] on your age, gender, weight, and height. Ex amples of healthy foods are listed below: ?? Eat a variety of vegetables such as dark green, red, and orange vegetables. You can also includecanned vegetables low in sodium (salt) and frozen vegetables without added butter or sauces. ?? Eat a variety of fresh fruits , canned fruit in 100% juice, frozen fruit, and dried fruit. ?? Include whole grains. At least half of the grains you eat should be whole grains. Examples include whole-wheat bread, wheat pasta, brown rice, and whole- grain cereals such as oatmeal. ?? Eat a variety of protein foods such as seafood (fish and shellfish), lean meat, and poultry without skin (turkey and chicken). Examples of lean meats include pork leg, shoulder, or tenderloin, andbeef round, sirloin, tenderloin, and extra lean ground beef. Other protein foods include eggs and egg substitutes, beans, peas, soy products, nuts, and seeds. ?? Choose low-fat dairy products such as skim or 1% milk or low-fat yogurt, cheese, and cottage cheese. ?? Limit unhealthy fats such as butter, hard [...] for you. General health and safety guidelines: ?? Do not smoke. Nicotine and other chemicals in cigarettes and cigars can cause lung damage. Ask your healthcare provider for information if you currently smoke and need help to quit. E-cigarettes or smokeless tobacco still contain nicotine. Talk to your healthcare provider before you use these products. ?? Limit alcohol. A drink of alcohol is 12 ounces of beer, 5 ounces of wine, or 1?? ounces of liquor. ?? Lose weight, if needed. Being overweight increases your risk of certain health conditions. Theseinclude heart disease, high blood pressure, type 2 diabetes, and certain types of cancer. ?? Protect your skin. Do not sunbathe or use tanning beds. Use sunscreen with a SPF 15 or higher. Apply sunscreen at least 15 minutes before you go outside. Reapply sunscreen every 2 hours. Wear protective clothing, hats, and sunglasses when you are outside. ?? Drive safely. Always wear your seatbelt. Make sure everyone in your car wears a seatbelt. A seatbelt can save your life if you are in an accident. Do not use your cell phone when you are driving. This could distract you and cause an accident. machine mover if you need to make a call or send a text message. ?? Practice safe sex. Use latex condoms if are sexually active and have more than one partner. Yourhealthcare provider may recommend screening tests for sexually transmitted infections (STIs). ?? Wear helmets, lifejackets, and protective gear. Always wear a helmet when you ride a bike or motorcycle, go skiing, or play sports that could cause a head injury. Wear protective equipment when you play sports. Wear a lifejacket when you are on a boat or doing water sports. ?? 2017 [employer] Information is for End User's use only and may not be sold, redistributed or otherwise used for commercial purposes. All illustrations and images included in CareNotes?? are the copyrighted property of [employer].D.A[employer]M., Inc. or [employer]. The above information is an scientific aide only. It is not intended as medical advice for individual conditions or treatments. Talk to your doctor, nurse or pharmacist before following any medical regimen to see if it is safe and effective for you. Health Maintenance Topics with due status: Overdue Topic Date Due Dilated Eye Exam Never done Covid-19 Vaccine 03/26/2021 Health Maintenance Topics with due status: Due On Topic Date Due Regular Well Visit/Exam 03/24/2021 Thanks for coming in today! My medical assistants and I are thankful you have trusted us with your care, and hope that you received EXCELLENT care today! Please do not hesitate to call if you have any questions or concerns at [phone]. You may receive a phone call, text, MYCHART message, or e-mail asking about your care today. We would love to hear your feedback on how EXCELLENT your care wastoday! Wishing you better health, always. Dr. Coy CAST OPERATOR documented in this encounter Ordered Prescriptions Prescription Sig Dispense Quantity Refills Last Filled Start Date End Date rivastigmine (EXELON) 9.5 mg/24 hourIndications:Se nile dementia without behavioral disturbance (HCC) Place 9.5 mg on the skin daily 30 patch 11 05/01/2021 02/07/2022 rivastigmine (EXELON) 4.6 mg/24 hourIndications:Se nile dementia without behavioral disturbance (HCC) Place 4.6 mg on the skin daily 30 patch 03/30/2021 09/04/2021 LORazepam (ATIVAN) 0.5 mg tabletIndications: Generalized anxiety disorder Take 1 tablet (0.5 mg total) by mouth 2 (two) times a day 60 tablet 5 03/30/2021 10/06/2021 atorvastatin (LIPITOR) 20 mg tabletIndications: Hyperlipidemia associated with type 2 diabetes mellitus (HCC) Take 1 tablet (20 mg total) by mouth daily 90 tablet 3 03/30/2021 02/07/2022 documented in this encounter Progress Notes * Jocelynn Coy DO - 03/30/2021 2:15 PM CST Images from the original note were not included. ANNUAL WELLNESS VISIT Annita Bose Patient RTC today for her annual wellness visit. She is accompanied by her daughter. Patient has dementia, which is confirmed by both the patient and her daughter. Her daughter reports noticing a decline ever since the patient's . Medicare Health Risk Assessment Basic Information In general, would you say your health is: Good Do you have an advance directive, such as a living will or durable power of interventional tech?: No Would you like information regarding Advanced Directiv (Living Will) and/or Durable Power of Boom Conveyor Operator?: Yes Do you have trouble hearing the television or radio when other do not?: No Do you have to strain or struggle to hear/understand conversations?: Yes Have you experienced any of the following problems currently or recently? Eating: No Grooming: No Bathing: No Walking: No Using the toilet: Yes Memory problems: Yes Difficulty speaking: Yes Have you experienced any of the following problems currently or recently? Laundry and/or housekeeping: No Handling Money: No Shopping: No Food preparation: No Transportation: No Taking and/or getting your own medications: No Problem List, Past Medical and Surgical History: Patient Active Problem List Diagnosis ??? Hypertension associated with diabetes (HCC) ??? Hyperlipidemia associated with type 2 diabetes mellitus ([facility]) ??? Generalized anxiety disorder ??? BMI 28.0-28.9,adult ??? Type 2 diabetes mellitus with hyperglycemia, without long-term current use of insulin (CMS/HCC)(HCC) ??? Decreased hearing of both ears ??? 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 No pertinent past medical history. History reviewed. No pertinent surgical history. Family History: Family History Problem Relation Age of Onset ??? Stomach cancer Sister Social History: Social History Socioeconomic History ??? Marital status: Spouse name: Not on file ??? Number of children: Not on file ??? Years of education: Not on file ??? Highest education level: Not on file Occupational History ??? Not on file Tobacco Use ??? Smoking status: Never Smoker ??? Smokeless tobacco: Never Used Substance and Sexual Activity ??? Alcohol use: No ??? Drug use: No ??? Sexual activity: Not on file Other Topics Concern ??? Not on file Social History Narrative ??? Not on file Social Determinants of Health Financial Resource Strain: Not on file Food Insecurity: Not on file Transportation Needs: Not on file Physical Activity: Not on file Stress: Not on file Social Connections: Not on file Intimate Partner Violence: Not on file Housing Stability: Not on file Allergies: No Known Allergies Medications: Current Outpatient Medications: ??? amLODIPine (NORVASC) 10 mg tablet, Take 1 tablet (10 mg total) by mouth daily, Disp: 90 tablet,Rfl: 3 ??? atorvastatin (LIPITOR) 20 mg tablet, Take 1 tablet (20 mg total) by mouth daily, Disp: 90 tablet, Rfl: 3 ??? blood glucose diagnostic strip, Use one strip to monitor home blood sugars daily., Disp: 100 each, Rfl: 3 ??? blood-glucose meter kit, 1 Device daily, Disp: 1 each, Rfl: 0 ??? coenzyme Q10 (Co Q-10) 100 mg capsule, Take 100 mg by mouth daily, Disp: , Rfl: ??? lancets 31 gauge misc, 1 Device daily, Disp: 100 each, Rfl: 3 ??? lisinopriL (PRINIVIL,ZESTRIL) 2.5 mg tablet, Take 1 tablet (2.5 mg total) by mouth daily, Disp:90 tablet, Rfl: 3 ??? LORazepam (ATIVAN) 0.5 mg tablet, Take 1 tablet (0.5 mg total) by mouth 2 (two) times a day, Disp: 60 tablet, Rfl: 5 ??? metFORMIN XR (GLUCOPHAGE XR) 500 mg 24 hr tablet, Take 1 tablet (500 mg total) by mouth daily with breakfast, Disp: 90 tablet, Rfl: 3 ??? omega-3 fatty acids 1,000 mg capsule, Take by mouth, Disp: , Rfl: ??? rivastigmine (EXELON) 4.6 mg/24 hour, Place 4.6 mg on the skin daily, Disp: 30 patch, Rfl: 0 ??? [START ON 05/01/2021] rivastigmine (EXELON) 9.5 mg/24 hour, Place 9.5 mg on the skin daily, Disp: 30 patch, Rfl: 11 Depression Screen: PHQ Screening Over the last 2 weeks, how often have you been bothered by any of the following problems? Little Interest or Pleasure in Doing Things: Not at all Feeling Down, Depressed, or Hopeless: Not at all PHQ-2 Total Score (If total score is 3 or more points, staff should administer the PHQ-9): 0 Over the past 2 weeks, how often [...] for dizziness, speech change and headaches. Psychiatric/Behavioral: Positive for depression (grieving the loss of her ). The patient is nervous/anxious. All other systems reviewed and are negative. Vitals: Vitals BP 108/50 (BP Location: Left arm, Patient Position: Sitting) Pulse 67 Temp 36.5 ??C (97.7 ??F) (Temporal) Resp 16 Ht 149.9 cm (4' 11.02 ) Wt 59.7 kg (131 lb 11.2 oz) SpO2 98% BMI 26.59 kg/m?? Body mass index is 26.59 kg/m??. Exam: Physical Exam Vitals and nursing note reviewed. Constitutional: Appearance: Normal appearance. She is well-developed. Interventions: Face mask in place. HENT: Head: Normocephalic and atraumatic. Right Ear: Hearing, tympanic membrane, ear canal and external ear normal. Left Ear: Hearing, tympanic membrane, ear canal and external ear normal. Eyes: General: Lids are normal. No scleral [...] oriented to person, place, and time. Psychiatric: Attention and Perception: Attention normal. Mood and Affect: Mood is anxious and depressed. Speech: Speech normal. Behavior: Behavior normal. Thought Content: Thought content does not include homicidal or suicidal ideation. Thought content does not include homicidal or suicidal plan. Cognition and Memory: Memory is impaired. Lab Results Component Value Date CHOL 121 09/26/2020 CHOL 164 03/24/2020 CHOL 170 11/21/2017 Lab Results Component Value Date HDL 60 09/26/2020 HDL 67 03/24/2020 HDL 60 11/21/2017 Lab Results Component Value Date LDLCALC 43 09/26/2020 LDLCALC 79 03/24/2020 LDL 86 11/21/2017 Lab Results Component Value Date TRIG 92 09/26/2020 TRIG 92 03/24/2020 TRIG 141 11/21/2017 Chemistry Lab Results Component Value Date SODIUM 139 01/10/2021 POTASSIUM 4.5 01/10/2021 CHLORIDE 102 01/10/2021 CO2 27 01/10/2021 ANIONGAP 10 01/10/2021 BUNSER 10 01/10/2021 CREATININE 0.62 01/10/2021 GLUCOSE 118 01/10/2021 CALCIUM 9.4 01/10/2021 BILITOT 0.5 01/10/2021 PROTEIN 7.0 11/21/2017 ALBUMIN 4.1 01/10/2021 GFRNAA 86 01/10/2021 ALKPHOS 81 01/10/2021 AST 23 01/10/2021 ALT 12 01/10/2021 MAGNESIUM 2.2 08/10/2014 [facility] Mental Status ([facility]) Assesment Data: Able to state day of the week?: Yes Able to state year?: Yes Able to name state?: Yes able to state how much money spent?: Yes Able to state how much money is left?: No How many animals named in one minute?: 10 to 14 Number of items named?: one Able to state numbers backward?: none Hours marked correctly?: Yes Time marked correctly?: No Placed X in triangle?: Yes Able to idenify larger figure?: Yes Able to remember female name?: Yes Able to state what work she did?: Yes Able to state when she went back to work?: Yes Able to state what state she lived in?: Yes Total Score:: 19 High School Education Less than High School Education 27-30 Normal 25-30 21-26 MNCD* 20-24 1-20 Dementia 1-19 *Mild Neurocognitive Disorder Care Team Providers: Patient Care Team: Jocelynn Coy DO as PCP - General (Family Medicine) Primary Pharmacy/DME suppliers: [id number] - [place], [place] - [address] [id number] Detection of Cognitive Impairment: The patient does have cognitive impairment based on direct observation, discussion with patient or family, or review of medical records. Health Maintenance: Health Maintenance Topics with due status: Overdue Topic Date Due Dilated Eye Exam Never done Covid-19 Vaccine 03/26/2021 Health Maintenance Topics with due status: Postponed Topic Postponed Until Zoster Vaccines 09/11/2021 (Originally 09/09/1991) Osteoporosis Screening-Bone Density Scan 03/04/2045 (Originally 1941) Health Maintenance Topics with due status: Not Due Topic Last Completion Date DTaP/Tdap/Td Vaccine 01/14/2016 Lipid Panel 09/26/2020 Urine Microalbumin 10/13/2020 Foot Exam 01/09/2021 Hemoglobin A1C 01/10/2021 Fall Risk Assessment 03/30/2021 Depression Screening-PHQ 03/30/2021 Regular Well Visit/Exam 03/30/2021 Health Maintenance Topics with due status: Completed Topic Last Completion Date Pneumococcal (PCV13 & PPSV23) 65+ yrs 03/14/2018 Influenza Vaccine 01/09/2021 Counseling and Referral of Preventative Services: Lifestyle Recommendations Increase Physical Activity Advanced Directive Durable Power of Boom Conveyor Operator: Discussed Today: Living Will: Discussed Today: Assessment and Plan: Diagnoses and all orders for this visit: Annual physical exam (Primary) Hyperlipidemia associated with type 2 diabetes mellitus (HCC) Assessment & Plan: LDL at goal. Cont current Rx meds. Orders: - atorvastatin (LIPITOR) 20 mg tablet; Take 1 tablet (20 mg total) by mouth daily - Lipid panel; Future Generalized anxiety disorder Assessment & Plan: Stable. Cont. Current prescription medications. 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 Orders: - rivastigmine (EXELON) 4.6 mg/24 hour; Place 4.6 mg on the skin daily - rivastigmine (EXELON) 9.5 mg/24 hour; Place 9.5 mg on the skin daily Patient here for annual Medicare wellness visit and for review of complete medical problem list. All the elements of the plan were completed as outlined by [facility]. A copy of the prevention plan was [...] This note is dictated and transcribed by [employer]. Process Environmental Technician variances may occur. Despite proofreading, typographical errors may occur. Jocelynn Coy DO CAST OPERATOR documented in this encounter Miscellaneous Notes * Assessment & Plan Note - Jocelynn Coy DO - 03/31/2021 6:27 PM DIE CAST OPERATOR Associated Problem(s): Hyperlipidemia associated with type 2 diabetes mellitus (HCC) LDL at goal. Cont current Rx meds. 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 CAST OPERATOR * Assessment & Plan Note - Jocelynn Coy DO - 03/31/2021 6:26 PM DIE CAST OPERATOR Associated Problem(s): Generalized anxiety disorder Stable. Cont. Current prescription medications. 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) documented in this encounter Discontinued Medications Medication Sig Discontinue Reason Start Date End Da te atorvastatin (LIPITOR) 20 mg tabletIndications:Pure hypercholesterolemia Take 1 tablet (20 mg total) by mouth daily Reorder 03/24/2020 03/30/2021 LORazepam (ATIVAN) 0.5 mg tabletIndications:Generalized anxiety disorder Take 1 tablet (0.5 mg total) by mouth 2 (two) times a day Reorder 09/22/2020 03/30/2021 documented as of this encounter Care Teams Commercial Property Manager Relationship Specialty Start Date End Date Jocelynn Coy DO PCP - General Family Medicine 06/10/17 09/02/23 documented as of this encounter
--- OUTSIDE RECORDS SUMMARY | 2024-03-31 14:22 | XMS_ITS | Encounter Summary ---
Author Organization [facility] Address [address] [place] [address] Care Team Providers Care Community Marketing Coordinator Name Role Phone Jocelynn Coy DO Primary Care Provider [phone]- [phone] Encounter Details Date Type Department Care Team (Late st Contact Info) Description 02/06/2022 Orders Only [facility] Primary Care at [address] [place] [address] Jocelynn Coy DO [address] [facility] [address] [address] Hearing loss, unspecified hearing loss type, unspecified laterality (Primary Dx) Social History Tobacco Use Types [...] on file Legal Sex Female 8:45 PM OLIVE PITTER Gender Identity Female 04/25/2021 2:46 PM OLIVE PITTER Sexual Orientation Straight 04/25/2021 2: 46 PM OLIVE PITTER documented as of this encounter Plan of Treatment Not on file documented as of this encounter Visit Diagnoses Diagnosis Hearing loss, unspecified hearing loss type, unspecified laterality- Primary documented in this encounter Care Teams Community Marketing Coordinator Relationship Specialty Start Date End Date Jocelynn Coy DO PCP - General Family Medicine 06/10/17 09/02/23 documented as of this encounter
--- OUTSIDE RECORDS SUMMARY | 2024-03-31 14:22 | XMS_ITS | Encounter Summary ---
Author Organization [facility] Address [address] [place] [address] Care Team Providers Care Field Service Supervisor Name Role Phone Jocelynn Coy DO Primary Care Provider [phone]- [phone] Encounter Details Date Type Department Care Team (Late st Contact Info) Description 08/31/2021 ACO Quality [facility] Accountable Care Organization [address] [place] [address] Monserrat Shin [address] [place] [address] [address] [place] [address] Type 2 diabetes mellitus with hyperglycemia, without long-term current use of insulin ([facility]) ([facility]) (Primary Dx) Social History Tobacco Use [...] on file Legal Sex Female 8:45 PM DIRECTOR CHILD Gender Identity Female 04/25/2021 2:46 PM DIRECTOR CHILD Sexual Orientation Straight 04/25/2021 2: 46 PM DIRECTOR CHILD documented as of this encounter Progress Notes * Monserrat Shin - 08/31/2021 2:04 PM CDT This patient has been identified as having an open diabetes care gap by their insurance plan. The patient's insurance requires an A1c to be performed for the current calendar year due to diagnosis ofdiabetes mellitus. An order to draw an A1c at the patient's next appointment has been placed. This patient has been identified as having an open diabetes gap in care by their insurance plan. This patient is included in this measure due to a diagnosis of type 1 or 2 diabetes. To close this measure, a collection of a eGFR (through a BMP or CMP) and an uACR can be accepted. 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 Current interpretive data was last revised 2018. Testing performed by: [facility], [address] [place] [address]., [id number] Creatinine Ur 113.6 mg/dL JOSE MARCELINO (JANE) Comment: Interpretive Data No reference range established. Current interpretive data was last revised 2018. Testing performed by: [facility], [address] [place] [address]., [id number] Albumin Creatinine Ratio, Ur <11 1 - 29 mg/g JOSE MARCELINO (JANE) Comment:Testing performed by : [address] [address] Urine 09/04/2021 12:4 2 PM CDT 09/04/2021 8:33 PM CDT Jocelynn Coy DO LAB URINE ORDERABLES Final Result JOSE MARCELINO (JANE) 1 [facility] [place] [address] documented in this encounter Visit Diagnoses Diagnosis Type 2 diabetes mellitus with hyperglycemia, without long-term current use of insulin (HCC)- Primary documented in this encounter Care Teams Field Service Supervisor Relationship Specialty Start Date End Date Jocelynn Coy DO PCP - General Family Medicine 06/10/17 09/02/23 documented as of this encounter
--- OUTSIDE RECORDS SUMMARY | 2024-03-31 14:22 | XMS_ITS | Encounter Summary ---
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) Jocelynn Coy DO Phone: tel: fax: Brian Madera MD [address] [place] [address] [address] Phone: tel: fax: Referral ID Status Reason Start Date Expiration Date V isits Requested Visits Authorized [id number] Closed Specialty Services Required 09/04/2021 04/14/2023 12 12 Question Answer Please select the performing region: [facility] [[id number]] Please select the performing department: [facility] [[id number]] To provider: BRIAN MADERA [[id number]] # of visits: 8 Comments Worsening memory problems and hallucinations since starting Exelon patch. Would like a neurologist. SLUMs 19 and Lost in 2019. 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 (CMS/HCC) ([facility]) Social History Tobacco Use Types Packs/Day Years Used Date Smoking Tobacco: Never Smokeless Tobacco: Never Alcohol Use Standard Drinks/Week Comments No 0 (1 standard drink = 0.6 oz pur e alcohol) PHQ-2 Answer Date Recorded PHQ-2 Total Score (If total score is 3 or more points, staff should administer the PHQ-9) 0 09/04/2021 Comments Unknown Sex and Gender Information Value Date Recorded Sex Assigned at Not on file Legal Sex Female 8:45 PM BUILDING CONSULTANT Gender Identity Female 04/25/2021 2:46 PM BUILDING CONSULTANT Sexual Orientation Straight 04/25/2021 2: 46 PM BUILDING CONSULTANT documented as of this encounter Last Filed Vital Signs Vital Sign Reading Time Taken Comments Blood Pressure 130/63 09/04/2021 11:40 AM CDT Pulse 75 09/04/2021 11:40 AM CDT Temperature 36.4 ??C (97.5 ??F) 09/04/2021 11:40 AM C DT Respiratory Rate 16 09/04/2021 11:40 AM CDT Oxygen Saturation 99% 09/04/2021 11:40 AM CDT Inhaled Oxygen Concentration - - Weight 57 kg (125 lb 11.2 oz) 09/04/2021 11:40 A M CDT Height 149.9 cm (4' 11.02 ) 09/04/2021 11:40 AM CDT Body Mass Index 25.37 09/04/2021 11:40 AM CDT documented in this encounter Patient Instructions * Patient Instructions* Jocelynn Coy DO - 09/04/2021 12:02 PM CDT Health Maintenance Topics with due status: Overdue Topic Date Due Dilated Eye Exam Never done Covid-19 Vaccine 02/24/2021 Hemoglobin A1C 07/10/2021 Thanks for coming in today! My medical assistants and I are thankful you have trusted us with your care, and hope that you received EXCELLENT care today! Please do not hesitate to call if you have any questions or concerns at [phone]. You may receive a phone call, text, MYCHART message, or e-mail asking about your care today. We would love to hear your feedback on how EXCELLENT your care wastoday! Wishing you better health, always. Dr. Coy * Attachments The following attachments cannot be sent through Care Everywhere. * Medicine Management Before Surgery (Nylon Winder) ([place]) documented in this encounter Progress Notes * Jocelynn Coy DO - 09/04/2021 11:30 AM CDT Images from the original note were not included. Chief Complaint Patient presents with ??? Pre-op Exam Cataract Surgery, Dr. Riggins 09/07/2021 Subjective: Annita Bose, 80 y.o. female, presents for preop evaluation: Surgeon : Dr. Riggins Type of surgery : cataract surgery Surgery site : eye Date of procedure: 09/07/2021 Problem: vision change In addition, patient and her daughter also wanted to discuss patient's dementia diagnosis. Pt daughter reports that her mother's dementia seems worse, since starting on the Exelon patch back in . She has been talking to people who aren't there and having crying spells. She did lose her a few years ago and current lives alone. History reviewed. No pertinent past medical history. Social History Socioeconomic History ??? Marital status: [...] on file Housing Stability: Not on file History reviewed. No pertinent surgical history. Current Outpatient Medications: ??? amLODIPine (NORVASC) 10 [...] 1 each, Rfl: 0 ??? coenzyme Q10 100 mg capsule, Take 100 mg by [...] mouth, Disp: , Rfl: ??? rivastigmine (EXELON) 9.5 mg/24 hour, Place 9.5 mg on the skin daily, Disp: 30 patch, Rfl: 11 No Known Allergies Review of Systems - daughter helped with ROS negative for - chills, fatigue or fever Review of Systems - ENT ROS: negative for - headaches, nasal discharge, vertigo positive for visual changes Hematological and Lymphatic ROS: negative for - fatigue, night sweats or swollen lymph nodes Respiratory ROS: negative for - cough, shortness of breath or wheezing Cardiovascular ROS: negative for - chest pain, dyspnea on exertion, edema or shortness of breath Gastrointestinal ROS: negative for - appetite loss, constipation, diarrhea or nausea/vomiting Musculoskeletal ROS: negative for - joint pain or joint swelling Psych ROS: occasional crying spells; has been speaking to persons who aren't there; BP 130/63 (BP Location: Left arm, Patient Position: Sitting) Pulse 75 Temp 36.4 ??C (97.5 ??F) (Temporal) Resp 16 Ht 149.9 cm (4' 11.02 ) Wt 57 kg (125 lb 11.2 oz) SpO2 99% BMI 25.37 kg/m?? Physical Exam CONSTITUTIONAL: The patient is well-developed, well-nourished and appears to be of stated age in noacute distress. NECK: No mass or thyromegaly is noted. Trachea midline LYMPH: There is no palpable cervical or supraclavicular adenopathy. EENT: eyes clear, TM's clear, landmarks visualized, nasal mucosa moist, throat clear without redness, exudate CHEST: The lungs are clear to auscultation without wheezes, rhonchi. HEART: Heart rhythm is regular; S1, S2 auscultated. no S3, S4, murmur, rub or tachycardia. Abd: soft, nontender, nondistended, BS+, no HSM MUSCULO: No clubbing, cyanosis, or edema. NEURO: Upper extremity strength is full and symmetrical. There is no facial asymmetry or droop. Thetongue is midline and voice is clear. No abnormalities noted in gait. No gross neurological deficits are noted PSYCHIATRIC: The patient is alert and oriented x 3. Mental/emotional status is appropriate, but anxiety has slightly worsened. Lab Results Component Value Date HGBA1C 7.0 (H) 09/04/2021 Chemistry Component Value Date/Time SODIUM 136 09/04/2021 1242 SODIUM 139 11/21/2017 1516 POTASSIUM 3.9 09/04/2021 1242 POTASSIUM 4.2 11/21/2017 1516 CHLORIDE 100 09/04/2021 1242 CHLORIDE 107 11/21/2017 1516 CO2 30 09/04/2021 1242 CO2 27 11/21/2017 1516 BUNSER 14 09/04/2021 1242 BUNSER 14 11/21/2017 1516 CREATININE 0.61 09/04/2021 1242 CREATININE 0.68 11/21/2017 1516 GLUCOSE 177 09/04/2021 1242 GLUCOSE 97 11/21/2017 1516 Component Value Date/Time CALCIUM 9.7 09/04/2021 1242 CALCIUM 9.5 11/21/2017 1516 ALKPHOS 89 09/04/2021 1242 ALKPHOS 76 11/21/2017 1516 AST 20 09/04/2021 1242 AST 15 11/21/2017 1516 ALT 13 09/04/2021 1242 ALT 13 11/21/2017 1516 BILITOT 0.4 09/04/2021 1242 BILITOT 0.3 11/21/2017 1516 Lab Results Component Value Date WBC 4.9 09/04/2021 HGB 13.7 09/04/2021 HCT 43.7 09/04/2021 MCV 84.5 09/04/2021 LABPLAT 261 09/04/2021 Assessment/Plan Diagnoses and all orders for this visit: Senile cataract, unspecified age-related cataract type, unspecified laterality (Primary) Comments: per ophthalmology Pre-op exam Comments: Well exam. labs and studies ordered. Orders: - ECG 12 lead - CBC with auto differential; Future - Comprehensive metabolic panel; Future Type 2 diabetes mellitus with hyperglycemia, without long-term current use of insulin ([facility]) ([facility]) Assessment & Plan: A1c at goal of < 8.0. Cont current mgmt. 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 Will consult with psychiatry forfurther eval/mgmt. Orders: - Ambulatory referral to Neurology; Future Pt is cleared for cataract removal surgery with Dr. Riggins on 09/07/2021. My total encounter time on 09/04/2021 was 50 minutes which was spent in the activities documented inthe note, > 50 % of visit was spent on counseling about dementia and it's stages, as well as a discussion on grieving. This includes time spent prior to the visit and after the visit in direct care of the patient. This time does not include time spent in any separately reportable services. This note is dictated and transcribed by [employer]. Child Development Professor variances may occur. Despite proofreading, typographical errors may occur. 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 Will consult with psychiatry forfurther eval/mgmt. * Assessment & Plan Note - Jocelynn Coy DO - 09/05/2021 1:43 PM CDT Associated Problem(s): Type 2 diabetes mellitus with hyperglycemia, without long-term current use of insulin (HCC) A1c at goal of < 8.0. Cont current mgmt. 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 ??Minority populations were underrepresented and children were not included. ?? (Diabetes Care 31:6565-6494, 2008). ??The eAG is not equivalent to a fasting glucose. Blood 09/04/2021 12:4 2 PM CDT 09/04/2021 1:29 PM CDT us Jocelynn Cantuclara Coy DO LAB BLOOD ORDERABLES Final Result [facility] (JANE) 1 [facility] Department [place] [address] * Comprehensive metabolic panel (09/04/2021 12:42 PM CDT) Sodium 136 135 - 145 mmol/L [facility] (JANE) Potassium, pl 3.9 3.3 - 4.9 mmol/L [facility] (JANE) Chloride 100 97 - 110 mmol/L [facility] (JANE) CO2 30 22 - 32 mmol/L [facility] (JANE) Anion gap 7 2 - 15 mmol/L [facility] (JANE) BUN 14 8 - 25 mg/dL [facility] (JANE) Creatinine 0.61 0.60 - 1.10 mg/dL [facility] (JANE) Glucose 177 70 - 199 mg/dL [facility] (JANE) [...] classification and Diagnosis of Diabetes Diabetes Care 2017;40 (Suppl. 1):S11. Current interpretive data was last revised 2017. Calcium 9.7 8.5 - 10.3 mg/dL [facility] (JANE) Bilirubin, total 0.4 0.1 - 1.2 mg/dL [facility] (JANE) Protein, pl 7.5 6.5 - 8.5 g/dL [facility] (JANE) Albumin 4.2 3.5 - 5.0 g/dL [facility] (JANE) Alk phos 89 40 - 130 Units/L [facility] (JANE) ALT 13 7 - 45 Units/L [facility] (JANE) AST 20 10 - 45 Units/L [facility] (JANE) Blood 09/04/2021 12:4 2 PM CDT 09/04/2021 1:29 PM CDT us Jocelynn Coy DO LAB BLOOD ORDERABLES Final Result [facility] (JANE) 1 [facility] [place] [address] * (ABNORMAL) CBC with auto differential (09/04/2021 12:42 PM CDT) WBC 4.9 3.8 - 9.9 K/cumm [facility] (JANE) Hgb 13.7 11.9 - 15.5 g/dL [facility] (JANE) Hct 43.7 35.6 - 45.5 % [facility] (JANE) Plt 261 150 - 400 K/cumm [facility] (JANE) MPV 10.1 9.1 - 12.3 fL [facility] (JANE) RBC 5.17 3.90 - 5.20 M/cumm [facility] (JANE) MCV 84.5 81.3 - 96.4 fL [facility] (JANE) MCH 26.5(L) 27.1 - 33.3 pg [facility] (JANE) MCHC 31.4(L) 32.3 - 35.7 g/dL [facility] (JANE) RDW CV 13.2 11.1 - 14.9 % [facility] (JANE) RDW SD 41.0 35.7 - 48.1 fL [facility] (JAEN) NRBC abs 0.00 0.00 - 0.01 K/cumm [facility] (JANE) Blood 09/04/2021 12:4 2 PM CDT 09/04/2021 1:29 PM CDT us Jocelynn Coy DO LAB BLOOD ORDERABLES Final Result JOSE MARCELINO ([place]) 1 [facility] Department [place] [address] * ECG 12 lead (09/04/2021) us Jocelynn Coy DO ECG ORDERABLES Final Resu lt documented in this encounter Visit Diagnoses Diagnosis Senile cataract, unspecified age-related cataract type, unspecified laterality- Primary Pre-op exam Type 2 diabetes mellitus with hyperglycemia, without long-term current use of insulin (HCC) 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
--- OUTSIDE RECORDS SUMMARY | 2024-03-31 14:22 | XMS_ITS | Encounter Summary ---
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) Procedures FL Fluoro Guided Lumbar Puncture Brian Madera MD [address] [place] [address] [place] [address] Phone: tel: fax: [address] [phone] Referral ID Status Reason Start Date Expiration Date Visits Re quested Visits Authorized [id number] Closed 11/17/2021 12/17/2022 1 1 Reason for Visit * Diagnostic Imaging (Routine) - Closed Specialty Diagnoses / Procedures Referred By Contac t Referred To Contact Diagnoses 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) Procedures FL Fluoro Guided Lumbar Puncture Brian Madera MD [address] [place] [address] [place] [address] Phone: tel: fax: [address] [phone] Referral ID Status Reason Start Date Expiration Date Visits Re quested Visits Authorized [id number] Closed 11/17/2021 12/17/2022 1 1 Encounter Details Date Type Department Care Team (Latest Contact Info) Description 01/17/2022 8:15 AM CDT - 01/17/2022 11:59 PM CDT Hospital Encounter [facility] [address] [place] [id number], Amh Augustin Rn Rad, Will Fluoro 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) Discharge Disposition: Discharge to home or self [...] on file Legal Sex 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 Gender Identity Female 04/25/2021 2:46 PM AUTO WASH BUFFER Sexual Orientation Straight 04/25/2021 2: 46 PM AUTO WASH BUFFER documented as of this encounter Last Filed Vital Signs Vital Sign Reading Time Taken Comments Blood Pressure 143/53 01/17/2022 10:00 AM CDT Pulse 71 01/17/2022 10:00 AM CDT Temperature 36.7 ??C (98.1 ??F) 01/17/2022 10:00 AM C DT Respiratory Rate 18 01/17/2022 10:00 AM CDT Oxygen Saturation 100% 01/17/2022 10:00 AM CDT Inhaled Oxygen Concentration - - Weight 58.5 kg (129 lb) 01/17/2022 8:20 AM CDT Height 149.9 cm (4' 11 ) 01/17/2022 8:20 AM CDT Body Mass Index 26.05 01/17/2022 8:20 AM CDT documented in this encounter Discharge Instructions * Attachments The following attachments cannot be sent through Care Everywhere. * Lumbar Puncture (Discharge Care) (Croatian) documented in this encounter Medications at Time of Discharge blood glucose diagnostic stripIndications: Type 2 diabetes mellitus with hyperglycemia, without long-term current use of insulin (HCC) Use one strip to monitor home blood sugars daily. 100 each 3 11/07/2020 blood-glucose meter kitIndications:Ty pe 2 diabetes mellitus with hyperglycemia, without long-term current use of insulin (HCC) 1 Device daily 1 each 10/18/2020 coenzyme Q10 100 mg capsule Take 1 capsule (100 mg total) by mouth daily lancets 31 gauge miscIndications:T ype 2 diabetes mellitus with hyperglycemia, without long-term current use of insulin (HCC) 1 Device daily 100 each 3 10/03/2020 amLODIPine (NORVASC) 10 mg tabletIndications :Hypertension associated with diabetes (HCC) Take 1 tablet (10 mg total) by mouth daily 90 tablet 3 10/06/2021 3 atorvastatin (LIPITOR) 20 mg tabletIndications :Hyperlipidemia associated with type 2 diabetes mellitus ([facility]) Take 1 tablet (20 mg total) by mouth daily 90 tablet 3 03/30/2021 2 ketorolac (ACULAR) 0.5 % ophthalmic solution 09/22/2021 2 lisinopriL (PRINIVIL,ZESTRIL ) 2.5 mg tabletIndications :Type 2 diabetes mellitus with hyperglycemia, without long-term current use of insulin ([facility]),Hypertensio n associated with diabetes ([facility]) TAKE 1 TABLET BY MOUTH EVERY DAY 90 tablet 3 09/13/2021 3 LORazepam (ATIVAN) 0.5 mg tabletIndications :Generalized anxiety disorder Take 1 tablet (0.5 mg total) by mouth as needed for anxiety 30 tablet 5 10/06/2021 2 metFORMIN XR (GLUCOPHAGE XR) 500 mg 24 hr tabletIndications :Type 2 diabetes mellitus with hyperglycemia, without long-term current use of insulin ([facility]) TAKE 1 TABLET BY MOUTH EVERY DAY WITH BREAKFAST 90 tablet 3 09/15/2021 3 omega-3 fatty acids 1,000 mg capsule Take by mouth 4 prednisoLONE acetate (PRED FORTE) 1 % ophthalmic suspension OPHT 1 DROP INTO SURGICAL EYE 3 TIMES PER DAY STARTING AFTER SURGERY 09/04/2021 2 rivastigmine (EXELON) 9.5 mg/24 hourIndications:S enile dementia without behavioral disturbance (HCC) Place 9.5 mg on the skin daily 30 patch 11 05/01/2021 2 documented as of this encounter Discharge Disposition Disposition Code Departure Means Destination Discharge to home or self care documented in this encounter Miscellaneous Notes * Post-Procedure Note - Brian Merritt MD - 01/17/2022 8:30 AM CDT Radiology Brief Post Procedure Note Attending: Dr. Brian Merritt Sedation/Anesthesia: Local Pre-procedure Diagnosis: memory loss Post-procedure Diagnosis: Same Procedure Performed: FL FLUORO GUIDED LUMBAR PUNCTURE Procedure Findings: Successful Complications: None Estimated Blood Loss: None Specimens: 14 mL CSF Condition: Stable Full report to follow. 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 Planned Procedure: FL FLUORO GUIDED LUMBAR PUNCTURE Planned Sedation/Anesthesia: Local PMH/PSH: No past medical history on file. Past Surgical History: Procedure Laterality Date CATARACT EXTRACTION Bilateral 09/07/2021 09/22/2021 ROS: Review of systems per HPI and otherwise all other systems are negative See chart for complete details of history, review of systems, physical exam, labs, imaging data andassessment. Allergies: Patient has no known allergies. Relevant Labs: Lab Results Component Value Date CREATININE 0.61 09/04/2021 INR 1.07 08/10/2014 Current Meds: No outpatient medications have been marked as taking for the 01/17/22 encounter (Hospital Encounter)with [place] [address]. Pertinent medications have been reviewed with the patient and/or their industrial relations representative. Most Recent Vitals: Vitals: 01/17/22 0820 BP: 149/76 Pulse: 73 Resp: 18 Temp: 36.6 ??C (97.9 ??F) SpO2: 99% Airway assessment: normal Physical Exam Cardiac: No Significant Abnormality Pulmonary: No Significant Abnormality Neurological: No Significant Abnormality ASA Score: 2 NPO time: after midnight Benefits, risks and alternatives of procedure and planned sedation have been discussed with the patient and/or their industrial relations representative. All questions answered and they agree to proceed. 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 FL FLUORO GUIDED LUMBAR PUNCTURE REASON FOR STUDY: ?? alzheimer dementia, rule out Alzheimer's dementia, Tube used to collect CSF for ADEVL must be special tube indicated by lab. ?? Rule out Alzheimer's dementia. ? FLUOROSCOPY TIME/IMAGE COUNT: Fluoro Time: ?? 25 seconds Image Count: ?? 3 fluoroscopic images submitted. ATTENDING PRESENCE: Dr. Merritt, the attending radiologist, was present from the beginning to the end of the procedure. SEDATION: Conscious sedation was not administered. TECHNIQUE: The risks, benefits and alternatives were discussed and informed consent was obtained. ??Prior to beginning the procedure, [place] Protocol was performed to confirm the patient's identity and the planned procedure. Sterile barriers used during the procedure included cap, mask, hand hygiene, sterile gloves, sterile gown, and sterile drape. ?? Betadine was used for cutaneous antisepsis. The patient was placed left lateral decubitus on the ??fluoroscopy ??table. ??The L3-L4 level ??was localized with ??fluoroscopy . ??2 mL 1% lidocaine was injected for subcutaneous anesthesia. A 20 gauge needle was inserted into the ??central canal ??utilizing ?? fluoroscopic ??guidance. Appropriate needle position was confirmed with ?? fluoroscopy . ??There is immediate return of clear CSF. ?? 14 ??mL CSF was obtained. The needle was removed. ??A Band-Aid was placed at the needle entry site. There were no immediate complications of the procedure. ESTIMATED BLOOD LOSS: ??None ?? CONDITION: Stable condition. DISCHARGED TO: ??Home FINDINGS: Fluoroscopic ??images demonstrate appropriate needle position overlying the central canal at ??L3-L4 . IMPRESSION: Lumbar puncture under ??fluoroscopic ??guidance. ??14 ??mL clear CSF was obtained and submitted for analysis. ?? THIS IS AN ELECTRONICALLY VERIFIED FINAL REPORT 01/17/2022 9:38 AM - Electronically signed by ??Brian Merritt M.D. MF: YONATHAN D: ??01/17/2022 9:38 AM T: ??01/17/2022 9:38 AM Report ID: [id number] Reading Location: ??[id number] Procedure Note Brian Merritt MD - 01/17/2022 EXAM DESCRIPTION: FL FLUORO GUIDED LUMBAR PUNCTURE REASON FOR STUDY: alzheimer dementia, rule out Alzheimer's dementia,Tube used to collect CSF for ADEVL must be special tube indicated by lab. Rule out Alzheimer's dementia. FLUOROSCOPY TIME/IMAGE COUNT: Fluoro Time: 25 seconds Image Count: 3 fluoroscopic images submitted. ATTENDING PRESENCE: Dr. Merritt, the attending radiologist, was presentfrom the beginning to the end of the procedure. SEDATION: Conscious sedation was not administered. TECHNIQUE: The risks, benefits and alternatives were discussed andinformed consent was obtained. Prior to beginning the procedure, UniversalProtocol was performed to confirm the patient's identity and the plannedprocedure. Sterile barriers used during the procedure included cap, mask, handhygiene, sterile gloves, sterile gown, and sterile drape. Betadine was used for cutaneous antisepsis. The patient was placed left lateral decubitus on the fluoroscopy table.The L3-L4 level was localized with fluoroscopy . 2 mL 1% lidocaine was injected for subcutaneous anesthesia. A 20 gauge needle was inserted into the central canal utilizing fluoroscopic guidance. Appropriate needle position was confirmed with fluoroscopy . There is immediate return of clear CSF. 14 mL CSF was obtained. The needle was removed. A Band-Aid was placed at the needle entry site.There were no immediate complications of the procedure. ESTIMATED BLOOD LOSS: None CONDITION: Stable condition. DISCHARGED TO: Home FINDINGS: Fluoroscopic images demonstrate appropriate needle position overlyingthe central canal at L3-L4 . IMPRESSION: Lumbar puncture under fluoroscopic guidance. 14 mL clear CSF wasobtained and submitted for analysis. THIS IS AN ELECTRONICALLY VERIFIED FINAL REPORT 01/17/2022 9:38 AM - Electronically signed by Brian Merritt M.D. MF: YONATHAN Report ID: [id number] Reading Location: [place] [address] us Brian Madera MD IMG FLUOROSCOPY PROCEDU RES Final Result * (ABNORMAL) Cell count with reflex to differential, CSF (01/17/2022 9:00 AM CDT) Tube Number, CSF Tube 4 [facility] ([place]) Color, CSF Colorless [facility] ([place]) Clarity, CSF Clear [facility] ([place]) Nucleated cells, CSF <3 0 - 5 /cumm [facility] ([place]) RBC, CSF <2,000.0(H) 0.0 - 0.0 /cumm [facility] ([place]) CSF 01/17/2022 9:00 AM CDT 01/17/2022 9:11 AM CDT us Brian Madera MD LAB BODY FLUIDS AND STO OLS ORDERABLES Final Result JOSE MatsonJANE) 1 [facility] [place] [address] * (ABNORMAL) Protein, total, CSF (01/17/2022 8:59 AM CDT) [facility] Protein, CSF 47(H) 5 - 45 mg/dL [facility] ([place]) CSF 01/17/2022 8:59 AM CDT 01/17/2022 9:13 AM CDT Brian Madera MD LAB BODY FLUIDS AND STO OLS ORDERABLES Final Result JOSE MARCELINO ([place]) 1 [place] [address] * Glucose, CSF (01/17/2022 8:59 AM CDT) Pathologist [facility] Glucose, CSF 77 mg/dL [facility] ([place]) Comment: Reference Interval Information: CSF Glucose should be 60-66% of the most current plasma glucose concentration (milligrams/deciliter) CLIN. CHEM. 41/3, 343-360 (1994), Clinical Utility of Biochemical Analysis of Cerebrospinal Fluid, Juan Antonio Le and Carlos Todd. Current interpretive data was last revised on 2018. CSF 01/17/2022 8:59 AM CDT 01/17/2022 9:13 AM CDT us Brian Madera MD LAB BODY FLUIDS AND STO OLS ORDERABLES Final Result JOSE MARCELINO ([place]) 1 [facility] [place] [address] * (ABNORMAL) Alzheimer???s disease evaluation, CSF (01/17/2022 8:59 AM CDT) Pathologist [facility] p-Tau/Abeta42 0.035(H) <=0.023 [facility] ([place]) Abeta42 699(L) >1026 pg/mL [facility] (JANE) Total-TAU 265(H) <=238 pg/mL JOSE MARCELINO ([place]) Phospho-Tau(181P) 24.5(H) <=21.7 pg/mL JOSE MACRELINO ([place]ANE) Comment: ADDITIONAL INFORMATION The testing method is an electrochemiluminescence assay manufactured by [employer] and performed on the Deborah system. Values obtained with different assay methods or kits may be different and cannot be used interchangeably. This test was developed and its performance characteristics determined by [facility] in a manner consistent with CLIA requirements. This test has not been cleared or approved by the U.S. Food and Drug Administration. Test Performed by: [address] [address] Business Advisor: Farrukh Waggoner M.D. Ph.D.; CLIA# [id number] CSF 01/17/2022 8:59 AM CDT 01/17/2022 9:10 AM CDT Brian Madera MD LAB GENETIC TESTING Fin al Result JOSE MARCELINO ([place]) 1 [facility] Department [place] [address] * Bacterial culture and gram stain, CSF CSF (01/17/2022 8:59 AM CDT) Direct Specimen Exam Stain: Cytospin Gram stain shows: No polymorphonuclear leukocytes seen. No organisms seen. JOSE MARCELINO ([place]ANE) Comment:Testing performed by : [facility], [address] [facility] [place] [address] Report Final Report: No growth JOSE MARCELINO (JANE) Comment:Testing performed by : [facility], [address] [facility] [place]., [address] CSF 01/17/2022 8:59 AM CDT 01/17/2022 9:55 AM CDT Narrative JOSE MARCELINO ([place]ANE) - 01/22/2022 9:43 AM CDT Testing performed by [facility] ([phone]). 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
--- OUTSIDE RECORDS SUMMARY | 2024-03-31 14:22 | XMS_ITS | Encounter Summary ---
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) Procedures MRI Brain WO Contrast Brian Madera MD [address] [place] [address] [place] [address] Phone: tel: fax: [address] [phone] Referral ID Status Reason Start Date Expiration Date Visits Re quested Visits Authorized [id number] Closed 01/03/2022 04/03/2022 1 1 Reason for Visit * MRI/CAT/PET Scan (Routine) - Closed Specialty Diagnoses / Procedures Referred By Contukrt chiang Referred To Contact Radiology Diagnoses 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) Procedures MRI Brain WO Contrast Brian Madera MD [address] [place] [address] [place] [address] Phone: tel: fax: [address] [phone] Referral ID Status Reason Start Date Expiration Date Visits Re quested Visits Authorized [id number] Closed 01/03/2022 04/03/2022 1 1 Encounter Details Date Type Department Care Team (Latest Contact Info) Description 01/03/2022 10:35 AM CDT - 01/03/2022 11:59 PM CDT Hospital Encounter [facility] [address] [place] [address] Brian Madera MD [address] [place] [address] [address] [place] [address] 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 (CMS/HCC) (HCC) Discharge Disposition: Discharge to home or [...] on file Legal 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 100 each 3 11/07/2020 blood-glucose meter kitIndications:Ty pe 2 diabetes mellitus with hyperglycemia, without long-term current use of insulin ([facility]) 1 Device daily 1 each 10/18/2020 coenzyme Q10 100 mg capsule Take 1 capsule (100 mg total) by mouth daily lancets 31 gauge miscIndications:T ype 2 diabetes mellitus with hyperglycemia, without long-term current use of insulin ([facility]) 1 Device daily 100 each 3 10/03/2020 amLODIPine (NORVASC) 10 mg tabletIndications :Hypertension associated with diabetes (HCC) Take 1 tablet (10 mg total) by mouth daily 90 tablet 3 10/06/2021 atorvastatin (LIPITOR) 20 mg tabletIndications :Hyperlipidemia associated with type 2 diabetes mellitus (HCC) Take 1 tablet (20 mg total) by mouth daily 90 tablet 3 03/30/2021 2 ketorolac (ACULAR) 0.5 % ophthalmic solution 09/22/2021 2 lisinopriL (PRINIVIL,ZESTRIL ) 2.5 mg tabletIndications :Type 2 diabetes mellitus with hyperglycemia, without long-term current use of insulin (HCC),Hypertensio n associated with diabetes (HCC) TAKE 1 TABLET [...] Procedure Name Priority Date/Time Associated Diagnosis Comments MRI BRAIN WO CONTRAST Schedule ADRIANNE, Read Routine (Patient lives out of area) 01/03/2022 11:28 AM CDT 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 (CMS/HCC) (HCC) documented in this encounter Results * MRI Brain WO Contrast (01/03/2022 11:28 AM CDT) Anatomical Region Laterality Modality Head and Neck N/A Magnetic Resonan ce 01/03/2022 11:3 5 AM CDT Narrative 01/03/2022 11:40 AM CDT EXAM DESCRIPTION: ?? MRI BRAIN WO CONTRAST REASON FOR STUDY: ?? Dementia, Alzheimer's suspected, Alzheimer dementia ?? Dementia, nonvascular etiology suspected; Alzheimer dementia ??Pt states she has No symptoms. ? TECHNIQUE: Multiplanar imaging includes non-contrasted T1, T2, FLAIR, and diffusion with ADC map sequences. Additional sequence(s) sensitive to blood products. Images stored on PACS. ? COMPARISON: ?? None available. FINDINGS: There is no diffusion restriction to suggest acute/recent infarction. No parenchymal susceptibility signal to indicate blood degradation products. There is mild diffuse parenchymal volume loss. ??No hydrocephalus. ??The basilar cisterns are maintained. Subcortical and periventricular white matter T2/FLAIR hyperintense signal in the bilateral cerebral hemispheres is nonspecific but compatible with nvqp-gk-cmkdqwlb chronic microvascular ischemic type change in a patient of this age. ??Additional similar signal alteration is seen in the archana. There has been previous bilateral cataract surgeries. ??Mucosal thickening in the ethmoid air cells and maxillary sinus floors. ??Trace T2 hyperintense signal in the mastoid air cells. ??There are degenerative changes in the imaged upper cervical spine. IMPRESSION: ?? 1. ?? No acute/recent infarction. 2. ?? Chronic microvascular ischemic type white-matter changes and additional findings as described. 3. ?? Previous imaging studies are not available for comparison. THIS IS AN ELECTRONICALLY VERIFIED FINAL REPORT 01/03/2022 11:40 AM - Electronically signed by ??Donaldo Betts D.O. AP: ANDREA D: ??01/03/2022 11:40 AM T: ??01/03/2022 11:40 AM Report ID: [id number] Reading Location: ??[id number] Procedure Note Donaldo Betts DO - 01/03/2022 EXAM DESCRIPTION: MRI BRAIN WO CONTRAST REASON FOR STUDY: Dementia, Alzheimer's suspected, Alzheimer dementia Dementia, nonvascular etiology suspected; Alzheimer dementia Pt statesshe has No symptoms. TECHNIQUE: Multiplanar imaging includes non-contrasted T1, T2, FLAIR, and diffusion with ADC map sequences. Additional sequence(s) sensitive toblood products. Images stored on PACS. COMPARISON: None available. FINDINGS: There is no diffusion restriction to suggest acute/recent infarction. No parenchymal susceptibility signal to indicate blood degradationproducts. There is mild diffuse parenchymal volume loss. No hydrocephalus. Thebasilar cisterns are maintained. Subcortical and periventricular white matter T2/FLAIR hyperintense signalin the bilateral cerebral hemispheres is nonspecific but compatible with ekyt-fz-juesalpj chronic microvascular ischemic type change in a patientof this age. Additional similar signal alteration is seen in the archana. There has been previous bilateral cataract surgeries. Mucosal thickeningin the ethmoid air cells and maxillary sinus floors. Trace T2 hyperintense signal in the mastoid air cells. There are degenerative changes in theimaged upper cervical spine. IMPRESSION: 1. No acute/recent infarction. 2. Chronic microvascular ischemic type white-matter changes andadditional findings as described. 3. Previous imaging studies are not available for comparison. THIS IS AN ELECTRONICALLY VERIFIED FINAL REPORT 01/03/2022 11:40 AM - Electronically signed by Donaldo Betts D.O. 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
--- OUTSIDE RECORDS SUMMARY | 2024-03-31 14:22 | XMS_ITS | Encounter Summary ---
Author Organization [facility] Medical [facility] Address [address] [place] [address] Care Team Providers Care Epic Willow Analyst Name Role Phone Jocelynn Coy DO Primary Care Provider [phone] Reason for Visit * Reason Comments Hypertension Hyperlipidemia Diabetes Anxiety Encounter Details Date Type Department Care Team (Late st Contact Info) Description 01/09/2021 3:00 PM CDT Office Visit [facility] [address] [place] [id number] Berna Shabazz, NORMAN [address] [facility] [address] [place] [address] Flu vaccine need (Primary Dx); Type 2 diabetes mellitus with hyperglycemia, without long-term current use of insulin (CMS/HCC) (HCC); Generalized anxiety disorder Social History Tobacco Use Types Packs/Day Years Used Date Smoking Tobacco: Never Smokeless Tobacco: Never Alcohol Use Standard Drinks/Week Comments No 0 (1 standard drink = 0.6 oz pur e alcohol) PHQ-2 Answer Date Recorded PHQ-2 Total Score (If total score is 3 or more points, staff should administer the PHQ-9) 0 01/09/2021 Comments Unknown Sex and Gender Information Value Date Recorded Sex Assigned at Not on file Legal Sex Female 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 Gender Identity Female 04/25/2021 2:46 PM GROUND WATER TECHNICIAN Sexual Orientation Straight 04/25/2021 2: 46 PM GROUND WATER TECHNICIAN documented as of this encounter Last Filed Vital Signs Vital Sign Reading Time Taken Comments Blood Pressure 114/64 01/09/2021 3:02 PM CDT Pulse 77 01/09/2021 3:02 PM CDT Temperature 36.9 ??C (98.5 ??F) 01/09/2021 3:02 PM CD T Respiratory Rate 16 01/09/2021 3:02 PM CDT Oxygen Saturation 97% 01/09/2021 3:02 PM CDT Inhaled Oxygen Concentration - - Weight 59.6 kg (131 lb 8 oz) 01/09/2021 3:02 PM CDT Height 149.9 cm (4' 11 ) 01/09/2021 3:02 PM CDT Body Mass Index 26.56 01/09/2021 3:02 PM CDT documented in this encounter Progress Notes * Berna Shabazz, AVIATION ELECTRONIC WARFARE OPERATOR - 01/09/2021 3:00 PM CDT Images from the original note were not included. Chief Complaint Patient presents with ??? Hypertension ??? Hyperlipidemia ??? Diabetes ??? Anxiety Diabetes She presents for her initial diabetic visit. She has type 2 diabetes mellitus. Her disease course has been improving. Pertinent negatives for hypoglycemia include no confusion, dizziness or headaches. Associated symptoms include weight loss. Pertinent negatives for diabetes include no blurred vision, no fatigue, no foot paresthesias, no visual change and no weakness. There are no hypoglycemic complications. Symptoms are stable. There are no diabetic complications. Current diabetic treatment includes oral agent (monotherapy) (is currently on statin as well). Meal planning includes avoidance ofconcentrated sweets. Her breakfast blood glucose range is generally 90-110 mg/dl. An LACIE inhibitor/angiotensin II receptor kell is being taken. She sees a stationary engineer supervisor.Eye exam is current. Anxiety Presents for follow-up visit. Patient reports no confusion or dizziness. Symptoms occur occasionally. The severity of symptoms is mild. The quality of sleep is good. Subjective Was having some constipation. They called up here and tried miralax, but that didn't work, so they tried magnesium citrate, which helped and then started on senna. Has been having some back pain. Taking tylenol. Started after she was mopping the floor, which was a couple of weeks ago. Current Outpatient Medications: ??? amLODIPine (NORVASC) 10 [...] capsule, Take by mouth, Disp: , Rfl: Patient Active Problem List Diagnosis ??? Hypertension associated with diabetes (HCC) ??? Hyperlipidemia associated with type 2 diabetes mellitus (HCC) ??? Generalized anxiety disorder ??? BMI 28.0-28.9,adult ??? Type 2 diabetes mellitus with hyperglycemia, without long-term current use of insulin (CMS/HCC)(HCC) ??? Decreased hearing of both ears Social History Socioeconomic History ??? Marital status: Spouse name: Not on file ??? Number of children: Not on file ??? Years of education: Not on file ??? Highest education level: Not on file Tobacco Use ??? Smoking status: Never Smoker ??? Smokeless tobacco: Never Used Substance and Sexual Activity ??? Alcohol use: No ??? Drug use: No BP 114/64 (BP Location: Right arm, Patient Position: Sitting) Pulse 77 Temp 36.9 ??C (98.5 ??F)(Temporal) Resp 16 Ht 149.9 cm (4' 11 ) Wt 59.6 kg (131 lb 8 oz) SpO2 97% BMI 26.56 kg/m?? Review of Systems Constitutional: Positive for weight loss. Negative for fatigue. Eyes: Negative for blurred vision. Neurological: Negative for dizziness, weakness and headaches. Psychiatric/Behavioral: Negative for confusion. Objective Physical Exam Constitutional: General: She is not in acute distress. Appearance: She is well-developed. HENT: Head: Normocephalic. Right Ear: Tympanic membrane, ear canal and external ear normal. Left Ear: Tympanic membrane, ear canal and external ear normal. Nose: Comments: Wearing mask Eyes: Conjunctiva/sclera: Conjunctivae normal. Neck: Thyroid: No thyromegaly. Trachea: No tracheal deviation. Cardiovascular: Rate and Rhythm: Normal rate and regular rhythm. Pulses: Dorsalis pedis pulses are 2+ on the right side and 2+ on the left side. Posterior tibial pulses are 2+ on the right side and 2+ on the left side. Heart sounds: Normal heart sounds. No murmur heard. No friction rub. Pulmonary: Effort: Pulmonary effort is normal. No respiratory distress. Breath sounds: Normal breath sounds. No wheezing or rales. Musculoskeletal: Cervical back: Neck supple. Right lower leg: No edema. Left lower leg: No edema. Right foot: Normal range of motion. No deformity. Left foot: Normal range of motion. No deformity. Feet: Right Foot: Monofilament exam: normal. Protective Sensation: 3 sites tested. 3 sites sensed. Skin Integrity: Negative for ulcer, skin breakdown or dry skin. Left Foot: Monofilament exam: normal. Protective Sensation: 3 sites tested. 3 sites sensed. Skin Integrity: Negative for ulcer, skin breakdown or dry skin. Lymphadenopathy: Cervical: No cervical adenopathy. Skin: General: Skin is warm and dry. Neurological: Mental Status: She is alert and oriented to person, place, and time. Psychiatric: Mood and Affect: Mood normal. Behavior: Behavior normal. Thought Content: Thought content normal. Judgment: Judgment normal. Diagnoses and all orders for this visit: Flu vaccine need (Primary) - Flu Vaccine Quad High Dose PF 65Y+ IM - Fluzone High Dose Quad Type 2 diabetes mellitus with hyperglycemia, without long-term current use of insulin ([facility]) ([facility]) Assessment & Plan: Tolerating metformin well. Checking blood sugars in the morning periodically. Blood pressure is well controlled. She is currently on a statin medication. Will have her continue the metformin and recheck hemoglobin A1c and CMP. Will have her follow-up in 6 months. Orders: - Hemoglobin A1c; Future - Comprehensive metabolic panel; Future Generalized anxiety disorder Assessment & Plan: Anxiety has been controlled. Will continue on lorazepam p.r.n. Pt voiced understanding of plan of care and f/u Return in about 6 months (around 07/09/2021) for Recheck. Berna Shabazz NP documented in this encounter Miscellaneous Notes * Assessment & Plan Note - Berna Shabazz NP - 01/09/2021 3:31 PM CDT Associated Problem(s): Generalized anxiety disorder Anxiety has been controlled. Will continue on lorazepam p.r.n. * Assessment & Plan Note - Berna Shabazz NP - 01/09/2021 3:30 PM CDT Associated Problem(s): Type 2 diabetes mellitus with hyperglycemia, without long-term current use of insulin (HCC) Tolerating metformin well. Checking blood sugars in the morning periodically. Blood pressure is well controlled. She is currently on a statin medication. Will have her continue the metformin and recheck hemoglobin A1c and CMP. Will have her follow-up in 6 months. documented in this encounter Plan of Treatment Not on file documented as of this encounter Results * Comprehensive metabolic panel (01/10/2021 9:12 AM CDT) Sodium 139 135 - 145 mmol/L [facility] ([facility]) Potassium, pl 4.5 3.3 - 4.9 mmol/L [facility] ([facility]) Chloride 102 97 - 110 mmol/L [facility] ([facility]) CO2 27 22 - 32 mmol/L [facility] ([facility]) Anion gap 10 2 - 15 mmol/L [facility] ([facility]) BUN 10 8 - 25 mg/dL [facility] ([facility]) Creatinine 0.62 0.60 - 1.10 mg/dL [facility] ([facility]) Glucose 118 70 - 199 mg/dL [facility] ([facility]) [...] interpretive data was last revised 2017. Calcium 9.4 8.5 - 10.3 mg/dL [facility] ([facility]) Bilirubin, total 0.5 0.1 - 1.2 mg/dL [facility] ([facility]) Protein, pl 7.6 6.5 - 8.5 g/dL [facility] ([facility]) Albumin 4.1 3.5 - 5.0 g/dL [facility] ([facility]) Alk phos 81 40 - 130 Units/L [facility] ([facility]) ALT 12 7 - 45 Units/L [facility] ([facility]) AST 23 10 - 45 Units/L [facility] ([facility]) Blood 01/10/2021 9:1 2 AM CDT 01/10/2021 1:28 PM CDT us Berna Shabazz NP LAB BLOOD ORDERABLES Final Resul t [facility] ([facility] [address] [facility] Department [place] [address] * (ABNORMAL) Hemoglobin A1c (01/10/2021 9:12 AM CDT) Hgb A1C 7.0(H) 4.0 - 5.6 % [facility] ([place]) Estimated Average Glucose 154 mg/dL [facility] ([facility]) Comment: The ADA recommends reporting an estimated Average Glucose (eAG) with all Hemoglobin A1c results using the equation derived from a study of 507 normal and diabetic adults. ??Minority populations were underrepresented and children were not included. ?? (Diabetes Care 31:9229-9138, 2008). ??The eAG is not equivalent to a fasting glucose. Blood 01/10/2021 9:12 AM CDT 01/10/2021 1:28 PM CDT Berna Shabazz NP LAB BLOOD ORDERABLES Final Resul t [facility] (BADGER) [address] [facility] Department [place] [address] documented in this encounter Visit Diagnoses Diagnosis Flu vaccine need- Primary Type 2 diabetes mellitus with hyperglycemia, without long-term current use of insulin (HCC) Generalized anxiety disorder documented in this encounter Historical Medications * This list may reflect changes made after this encounter. coenzyme Q10 100 mg capsule Take 1 capsule (100 mg total) by mouth daily omega-3 fatty acids 1,000 mg capsule Take by mouth 11/25/2023 added in this encounter Orders Immunization/Injection Count Last Ordered Date First Ordered Date FLU VACCINE HIGH DOSE QUAD P F 65Y+ IM - FLUZONE HIGH DOS 1 01/09/2021 documented in this encounter Care Teams Epic Willow Analyst Relationship Specialty Start Date End Date Jocelynn Coy DO PCP - General Family Medicine 06/10/17 09/02/23 documented as of this encounter
--- OUTSIDE RECORDS SUMMARY | 2024-03-31 14:22 | XMS_ITS | Encounter Summary ---
Author Organization [facility] Healthcare Address [address] [place] [address] Care Team Providers Care Cook At School Name Role Phone Jocelynn Coy DO Primary Care Provider [phone] Brian Madera MD Unavailable [phone] Carmelita Olivera MD Primary Care Provide r Mikala Sheth MA Unavailable Yuliana Simmons LCSW Unavailable [phone] Encounter Details Date Type Department Care Team (Late st Contact Info) Description 01/09/2022 Telephone [facility] [address] [place] [id number] Stefany Carroll, GEMA Social History Tobacco Use Types Packs/Day Years [...] on file Legal Sex Female 8:45 PM FORGING PRESS LEVER TENDER Gender Identity Female 04/25/2021 2:46 PM FORGING PRESS LEVER TENDER Sexual Orientation Straight 04/25/2021 2: 46 PM FORGING PRESS LEVER TENDER documented as of this encounter Plan of Treatment Not on file documented as of this encounter Visit Diagnoses Not on filedocumented in this encounter Additional Health Concerns Infection Onset Date Last Indicated Resolved Time COVID: Suspected 04/21/2023 04/21/2023 04/21/2023 2:09 PM FORGING PRESS LEVER TENDER COVID19 04/21/2023 04/21/2023 05/01/2023 3:05 AM FORGING PRESS LEVER TENDER COVID: Recovered Comment:Added based on recent COVID infection. 05/01/2023 05/03/2023 07/30/2023 3:06 AM C DT documented as of this encounter Care Teams Cook At School Relationship Specialty Start Date End Date CoyJocelynn DO Abdulaziz PCP - General Family Medicine 06/10/17 09/02/23 Carmelita Olivera MD [address] [facility] [address] [place] [address] PCP - General Family Medicine 09/03/23 Brian Madera MD [address] [place] [address] [address] [place] [address] Consulting Physician Neurology 04/02/22 Mikala Sheth, MA [address] [place] [address] [address] [place] [address] ACO Care Hand Bunch Maker 11/21/23 11/21/23 Yuliana Simmons, [address] [place] [address] Manager Business Development Hospice Perfume And Toilet Water Maker 12/12/23 02/16/24 documented as of this encounter
--- OUTSIDE RECORDS SUMMARY | 2024-03-31 14:22 | XMS_ITS | Encounter Summary ---
Author Organization [facility] Medical [facility] Address [address] [facility] [address] [place] [address] Care Team Providers Care Lead Janitor Name Role Phone Jocelynn Coy DO Primary Care Provider [phone] Encounter Details Date Type Department Care Team (Late st Contact Info) Description 11/16/2021 Telephone [facility] [address] [place] [address] [address] [place] [phone] Rupal Mena MA Social History Tobacco Use Types Packs/Day Years [...] on file Legal Sex Female 8:45 PM YACHT MASTER Gender Identity Female 04/25/2021 2:46 PM YACHT MASTER Sexual Orientation Straight 04/25/2021 2: 46 PM YACHT MASTER documented as of this encounter Miscellaneous Notes * Telephone Encounter - Rupal Mena MA - 11/16/2021 9:19 AM CDT Pts daughter informed that pt is on the correct medication for her skin infection. To f/u with primary if infection does not clear after medication is completed. documented in this encounter Plan of Treatment Not on file documented as of this encounter Visit Diagnoses Not on filedocumented in this encounter Care Teams Lead Janitor Relationship Specialty Start Date End Date Jocelynn Coy DO PCP - General Family Medicine 06/10/17 09/02/23 documented as of this encounter
--- OUTSIDE RECORDS SUMMARY | 2024-03-31 14:22 | XMS_ITS | Encounter Summary ---
Author Organization [facility] Medical Group Address [address] [facility] [address] [place] [address] Care Team Providers Care Vp Of Digital Marketing Name Role Phone Jocelynn Coy DO Primary Care Provider [phone] Reason for Visit * Reason Onset Date Comments Referral Request 08/16/2021 Ophthalmology Encounter Details Date Type Department Care Team (Late st Contact Info) Description 08/16/2021 Telephone [facility] [address] [place] [address] Jocelynn Coy DO [address] [facility] [address] [address] Referral Request (Ophthalmology) Social History Tobacco Use Types Packs/Day Years [...] on file Legal Sex Female 8:45 PM FOOTWEAR MACHINERY INSTRUCTOR Gender Identity Female 04/25/2021 2:46 PM FOOTWEAR MACHINERY INSTRUCTOR Sexual Orientation Straight 04/25/2021 2: 46 PM FOOTWEAR MACHINERY INSTRUCTOR documented as of this encounter Miscellaneous Notes * Telephone Encounter - Jocelynn Coy DO - 08/17/2021 9:08 AM CDT done * Telephone Encounter - Olga Ewing MA - 08/16/2021 2:18 PM CDT Received fax from [employer], patient is needing a new insurance referral to see Dr. Riggins for her upcoming appointment on 09/07/21 Referral is pending. 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
--- OUTSIDE RECORDS SUMMARY | 2024-03-31 14:22 | XMS_ITS | Encounter Summary ---
Author Organization [facility] Address [address] [place] [address] Care Team Providers Care Supervisor Cartography Name Role Phone Jocelynn Coy DO Primary Care Provider [phone]- [phone] Reason for Visit * Reason Comments Hypertension 6 mo f/u Hyperlipidemia DM2 Anxiety Encounter Details Date Type Department Care Team (Late st Contact Info) Description 10/06/2021 8:00 AM CDT Office Visit [facility] [address] [place] [id number] Jocelynn Coy DO [address] [place] [address] Hypertension associated with diabetes (HCC) (Primary Dx); [...] on file Legal Sex Female 8:45 PM TV TECHNICIAN Gender Identity Female 04/25/2021 2:46 PM TV TECHNICIAN Sexual Orientation Straight 04/25/2021 2: 46 PM TV TECHNICIAN documented as of this encounter Last Filed Vital Signs Vital Sign Reading Time Taken Comments Blood Pressure 146/48 10/06/2021 8:05 AM CDT Man uallector Pulse 72 10/06/2021 7:51 AM CDT Temperature 36.6 ??C (97.8 ??F) 10/06/2021 7:51 AM CD T Respiratory Rate 16 10/06/2021 7:51 AM CDT Oxygen Saturation 96% 10/06/2021 7:51 AM CDT Inhaled Oxygen Concentration - - Weight 57.5 kg (126 lb 12.8 oz) 10/06/2021 7:51 AM CDT Height 149.9 cm (4' 11.02 ) 10/06/2021 7:51 AM C DT Body Mass Index 25.6 10/06/2021 7:51 AM CDT documented in this encounter Patient Instructions * Patient Instructions* Jocelynn Coy, DO - 10/06/2021 8:15 AM CDT Images from the original note were not included. Patient Education DASH Eating Plan TANK TRUCK LOADER: The DASH (Dietary Approaches to Stop Hypertension) [...] you eat more fruits, vegetables, andwhole grains. Your sodium limit each day: Your dietitian will tell you how much sodium is safe for you to have each day. People with high blood pressure should have no more than 1,500 to 2,300 mg of sodium in a day. A teaspoon (tsp) of salt has 2,300 mg of sodium. This may seem like a difficult goal, but small changes to the foods you eat can make a big difference. Your healthcare provider or dietitian can help you create a meal plan that follows your sodium limit. How to limit sodium: Read food labels. Food labels can help [...] no salt added on the food label. Avoid salt. Do not salt food at the table, and add very little salt to foods during cooking. Use herbs and spices, such as onions, garlic, and salt-free seasonings to add flavor to foods. Try lemon or picayune juice or vinegar to give foods a tart flavor. Use hot peppers or a small amount of hot peppersauce to add a spicy flavor to foods. Ask about salt substitutes. Ask your healthcare [...] What you need to know about fats: Include healthy fats. Examples are unsaturated fats and omega-3 fatty acids. Unsaturated fats are found in soybean, canola, olive, or sunflower oil, and liquid and soft tub margarines. [place]-3 fatty acids are found in fatty fish, such as salmon, tuna, mackerel, and sardines. It is also found in flaxseed oil and ground flaxseed. Avoid unhealthy fats. Do not eat unhealthy fats, such as saturated fats and trans fats. Saturated fats are found in foods that contain fat from animals. Examples are fatty meats, whole milk, butter, cream, and other dairy foods. It is also found in shortening, stick margarine, palm oil, and coconutoil. Trans fats are found in fried foods, crackers, chips, and baked goods made with margarine or shortening. Foods to include: With the DASH eating plan, you need to eat a certain number of servings from eachfood group. This will help you get enough of certain nutrients and limit others. The amount of servings you should eat depends on how many calories you need. Your dietitian can tell you how many calories you need. The number of servings listed next to the food groups below are for people who need about 2,000 calories each day. Grains: 6 to 8 servings (3 of these servings should be whole-grain foods) 1 slice of whole-grain bread 1 ounce of dry cereal ?? cup of cooked cereal, pasta, or brown rice Vegetables and fruits: 4 to 5 servings of fruits and 4 to 5 servings of vegetables 1 medium fruit ?? cup of frozen, canned (no added salt), or chopped fresh vegetables ?? cup of fresh, frozen, dried, or canned fruit (canned in light syrup or fruit juice) ?? cup of vegetable or fruit juice Dairy: 2 to 3 servings 1 cup of nonfat (skim) or 1% milk 1?? ounces of fat-free or low-fat cheese 6 ounces of nonfat or low-fat yogurt Lean meat, poultry, and fish: 6 ounces or less Poultry (chicken, turkey) with no skin Fish (especially fatty fish, such as salmon, fresh tuna, or mackerel) Lean beef and pork (loin, round, extra lean hamburger) Egg whites and egg substitutes Nuts, seeds, and legumes: 4 to 5 servings each week ?? cup of cooked beans and peas 1?? ounces of unsalted nuts 2 tablespoons of peanut butter or seeds Sweets and added sugars: 5 or less each week 1 tablespoon of sugar, jelly, or jam ?? cup of sorbet or gelatin 1 cup of lemonade Fats: 2 to 3 servings each week 1 teaspoon of soft margarine or vegetable oil 1 tablespoon of mayonnaise 2 tablespoons of salad dressing Foods to avoid: Grains: Baked goods, such as doughnuts, pastries, cookies, and biscuits (high in fat and sugar) Mixes for cornbread and biscuits, packaged foods, such as bread stuffing, rice and pasta mixes, macaroni and cheese, and instant cereals (high in sodium) Fruits and vegetables: Regular, canned vegetables (high in sodium) Sauerkraut, pickled vegetables, and other foods prepared in brine (high in sodium) Fried vegetables or vegetables in butter or high-fat sauces Fruit in cream or butter sauce (high in fat) Dairy: Whole milk, 2% milk, and cream (high in fat) Regular cheese and processed cheese (high in fat and sodium) Meats and protein foods: Smoked or cured meat, such as corned beef, mojica, ham, hot dogs, and sausage (high in fat and sodium) Canned beans and canned meats or spreads, such as potted meats, sardines, anchovies, and imitation seafood (high in sodium) Deli or lunch meats, such as bologna, ham, turkey, and roast beef (high in sodium) High-fat meat (T-bone steak, regular hamburger, and ribs) Whole eggs and egg yolks (high in fat) Other: Seasonings made with salt, such as garlic salt, celery salt, onion salt, seasoned salt, meat tenderizers, and monosodium glutamate (MSG) Miso soup and canned or dried soup mixes (high in sodium) Regular soy sauce, barbecue sauce, teriyaki sauce, steak sauce, Worcestershire sauce, and most flavored vinegars (high in sodium) Regular condiments, such as mustard, ketchup, and salad dressings (high in sodium) Gravy and sauces, such as Fer or cheese sauces (high in sodium and fat) Drinks high in sugar, such as soda or fruit drinks Snack foods, such as salted chips, popcorn, pretzels, pork rinds, salted crackers, and salted nuts Frozen foods, such as dinners, entrees, vegetables with sauces, and breaded meats (high in sodium) Other guidelines to follow: Maintain a healthy [...] wine, or 1?? ounces of liquor. ?? 2017 [employer] Information is for End User's use only and may not be sold, redistributed or otherwise used for commercial purposes. All illustrations and images included in CareNotes?? are the copyrighted property of [employer], [employer]. or [employer]. The above information is an cleaning maid only. It is not intended as medical advice for individual conditions or treatments. Talk to your doctor, nurse or pharmacist before following any medical regimen to see if it is safe and effective for you. Health Maintenance Topics with due status: Overdue Topic Date Due Dilated Eye Exam Never done Zoster Vaccines Never done Covid-19 Vaccine 02/24/2021 Lipid Panel 09/26/2021 Thanks for coming in today! My medical assistants and I are thankful you have trusted us with your care, and hope that you received EXCELLENT care today! Please do not hesitate to call if you have any questions or concerns at [phone]. You may receive a phone call, text, MYCHART message, or e-mail asking about your care today. We would love to hear your feedback on how EXCELLENT your care wastoday! Wishing you better health, always. Dr. Coy documented in this encounter Ordered Prescriptions Prescription Sig Dispense Quantity Refills Last Filled Start Date End Date LORazepam (ATIVAN) 0.5 mg tabletIndications: Generalized anxiety disorder Take 1 tablet (0.5 mg total) by mouth as needed for anxiety 30 tablet 5 10/06/2021 2 amLODIPine (NORVASC) 10 mg tabletIndications: Hypertension associated with diabetes (HCC) Take 1 tablet (10 mg total) by mouth daily 90 tablet 3 10/06/2021 3 documented in this encounter Progress Notes * Jocelynn Coy, DO - 10/06/2021 8:00 AM CDT Images from the original note were not included. Subjective/Objective Patient ID: Annita Bose is a 81 y.o. female. Chief Complaint Chief Complaint Patient presents with ??? Hypertension 6 mo f/u ??? Hyperlipidemia ??? DM2 ??? Anxiety HPI Patient RTC today for routine f/u on chronic medical conditions. Annita Bose denies any medication side-effects. Patient did NOT take her bp meds prior to visit today. She is here today with her daughter. She is without complaints. Review of Systems Constitutional: Negative for fatigue. HENT: Negative for congestion and sore throat. Eyes: Negative for visual disturbance. Respiratory: Negative for cough and shortness of breath. Cardiovascular: Negative for chest pain, palpitations and leg swelling. Gastrointestinal: Negative for abdominal pain and nausea. Genitourinary: Negative for hematuria. Musculoskeletal: Negative for myalgias. Skin: Negative for rash. Neurological: Negative for dizziness and headaches. All other systems reviewed and are negative. Vitals: 10/06/21 0751 10/06/21 0805 BP: 155/68 146/48 BP Location: Left arm Left arm Patient Position: Sitting Sitting Pulse: 72 Resp: 16 Temp: 36.6 ??C (97.8 ??F) TempSrc: Oral SpO2: 96% Weight: 57.5 kg (126 lb 12.8 oz) Height: 149.9 cm (4' 11.02 ) Body mass index is 25.6 kg/m??. Physical Exam Vitals and nursing note reviewed. Constitutional: Appearance: Normal appearance. She is well-developed. Interventions: Face mask in place. HENT: Head: Normocephalic and atraumatic. Eyes: General: [...] normal. Lab Results Component Value Date CHOL 121 09/26/2020 CHOL 164 03/24/2020 CHOL 170 11/21/2017 Lab Results Component Value Date HDL 60 09/26/2020 HDL 67 03/24/2020 HDL 60 11/21/2017 Lab Results Component Value Date LDLCALC 43 09/26/2020 LDLCALC 79 03/24/2020 LDL 86 11/21/2017 Lab Results Component Value Date TRIG 92 09/26/2020 TRIG 92 03/24/2020 TRIG 141 11/21/2017 Chemistry Component Value Date/Time SODIUM 136 09/04/2021 [...] 1516 Lab Results Component Value Date HGBA1C 7.0 (H) 09/04/2021 Diagnoses and all orders for this visit: Hypertension associated with diabetes (HCC) (Primary) Assessment & Plan: Elevated, patient did not take her bp meds prior to her arrival here. Encouraged patient to take her meds as directed. Orders: - amLODIPine (NORVASC) 10 mg tablet; Take 1 tablet (10 mg total) by mouth daily Hyperlipidemia associated with type 2 diabetes mellitus ([facility]) Assessment & Plan: LDL at goal of < 100. Cont current meds. Type 2 diabetes mellitus with hyperglycemia, without long-term current use of insulin ([facility]/HCC) (HCC) Assessment & Plan: A1c at goal, cont current Rx meds. Generalized anxiety disorder Assessment & Plan: Clinically improved, continue current prescription medications. Orders: - LORazepam (ATIVAN) 0.5 mg tablet; Take 1 tablet (0.5 mg total) by mouth as needed for anxiety Jocelynn Coy DO This note is dictated and transcribed by [employer]. Medical Doctor Nuclear Medicine variances may occur. Despite proofreading, typographical errors may occur. documented in this encounter Miscellaneous Notes * Assessment & Plan Note - Jocelynn Coy DO - 10/08/2021 6:46 PM CDT Associated Problem(s): Generalized anxiety disorder Clinically improved, continue current prescription medications. * Assessment & Plan Note - Jocelynn Coy DO - 10/08/2021 6:45 PM CDT Associated Problem(s): Hyperlipidemia associated with type 2 diabetes mellitus (HCC) LDL at goal of < 100. Cont current meds. * Assessment & Plan Note - Jocelynn Coy DO - 10/08/2021 6:45 PM CDT Associated Problem(s): Type 2 diabetes mellitus with hyperglycemia, without long-term current use of insulin ([facility]) A1c at goal, cont current Rx meds. * Assessment & Plan Note - Jocelynn Coy DO - 10/08/2021 6:41 PM CDT Associated Problem(s): Hypertension associated with diabetes (HCC) Elevated, patient did not take her bp meds prior to her arrival here. Encouraged patient to take her meds as directed. documented in this encounter Plan of Treatment Not on file documented as of this encounter Visit Diagnoses Diagnosis Hypertension associated with diabetes (HCC)- Primary Unspecified essential hypertension Hyperlipidemia associated with type 2 diabetes mellitus (HCC) Type 2 diabetes mellitus with hyperglycemia, without long-term current use of insulin (HCC) Generalized anxiety disorder documented in this encounter Discontinued Medications Medication Sig Discontinue Reason Start Date End Da te amLODIPine (NORVASC) 10 mg tabletIndications:Essenti al hypertension Take 1 tablet (10 mg total) by mouth daily Reorder 09/22/2020 10/06/2021 LORazepam (ATIVAN) 0.5 mg tabletIndications:General ized anxiety disorder Take 1 tablet (0.5 mg total) by mouth 2 (two) times a day Reorder 03/30/2021 10/06/2021 documented as of this encounter Historical Medications * This list may reflect changes made after this encounter. prednisoLONE acetate (PRED FORTE) 1 % ophthalmic suspension OPHT 1 DROP INTO SURGICAL EYE 3 TIMES PER DAY STARTING AFTER SURGERY 09/04/2021 04/02/2022 ketorolac (ACULAR) 0.5 % ophthalmic solution 09/22/2021 04/02/2022 added in this encounter Care Teams Supervisor Cartography Relationship Specialty Start Date End Date Jocelynn Coy DO PCP - General Family Medicine 06/10/17 09/02/23 documented as of this encounter
--- OUTSIDE RECORDS SUMMARY | 2024-03-31 14:22 | XMS_ITS | Encounter Summary ---
Author Organization [facility] Address [address] [place] [address] Care Team Providers Care Clinical Cytopathologist Name Role Phone Jocelynn Coy DO Primary Care Provider [phone]- [phone] Encounter Details Date Type Department Care Team (Late st Contact Info) Description 09/04/2021 12:45 PM CDT Lab [address] Jocelynn Coy DO [address] [address] Type 2 diabetes mellitus with hyperglycemia, without long-term current use of insulin (CMS/HCC) ([facility]); Pre-op exam Discharge Disposition: Discharge to home or self [...] file Legal Sex Female 8:45 PM DIRECTOR OF SPECIAL EVENTS Gender Identity Female 04/25/2021 2:46 PM DIRECTOR OF SPECIAL EVENTS Sexual Orientation Straight 04/25/2021 2: 46 PM DIRECTOR OF SPECIAL EVENTS documented as of this encounter Discharge Disposition Disposition Code Departure Means Destination Discharge to home or self care documented in this encounter Plan of Treatment Not on file documented as of this encounter Procedures Procedure Name Priority Date/Time Associated Diagnosis Comments EGFR Routine 09/04/2021 12:42 PM CDT Pre-op exam Type 2 diabetes mellitus with hyperglycemia, without long-term current use of insulin ([facility]/HCC) ([facility]) DIFFERENTIAL AUTO Routine 09/04/2021 12: 42 PM CDT Pre-op exam CBC WITH AUTO DIFFERENTIAL Routine 09/04/2021 12:42 PM CDT Pre-op exam ALBUMIN CREATININE RATIO, URINE Routine 09/04/2021 12:42 PM CDT Type 2 diabetes mellitus with hyperglycemia, without long-term current use of insulin ([facility]/HCC) ([facility]) HEMOGLOBIN A1C Routine 09/04/2021 12:42 PM CDT Type 2 diabetes mellitus with hyperglycemia, without long-term current use of insulin ([facility]/HCC) ([facility]) COMPREHENSIVE METABOLIC PANEL Routine 09/04/2021 12:42 PM CDT Pre-op exam Type 2 diabetes mellitus with hyperglycemia, without long-term current use of insulin ([facility]/HCC) ([facility]) documented in this encounter Results * eGFR (09/04/2021 12:42 PM CDT) eGFR 91 mL/min/1. 73 m2 [facility] (JANE) Comment: [...] interpretive data was last reviewed 2021. Blood 09/04/2021 12:4 2 PM CDT 09/04/2021 1:29 PM CDT us Jocelynn Coy DO LAB BLOOD ORDERABLES Final Result [facility] ([place]ANE) [address] [facility] [place] [address] * Differential, auto (09/04/2021 12:42 PM CDT) Neutrophil abs 2.9 1.7 - 6.5 K/cumm [facility] (JANE) Imm gran abs 0.0 0.0 - 0.1 K/cumm [facility] (JANE) Lymphocyte abs 1.7 0.8 - 3.3 K/cumm [facility] (JANE) Monocyte abs 0.3 0.2 - 0.8 K/cumm [facility] (JANE) Eosinophil abs 0.1 0.0 - 0.5 K/cumm [facility] (JANE) Basophil abs 0.0 0.0 - 0.1 K/cumm [facility] ([place]ANE) Neutrophil pct 57.7 % [facility] (JANE) Comment: Interpretive [...] was last revised on 2017. Lymphocyte pct 33.4 % [facility] (JANE) Comment: Interpretive Data Percent cell count reference ranges are not reported, since discordance with absolute values may lead to misinterpretation of CBC data. Current Interpretive Data was last revised on 2017. Monocyte pct 5.9 % [facility] (JANE) Comment: Interpretive Data Percent cell count reference ranges are not reported, since discordance with absolute values may lead to misinterpretation of CBC data. Current Interpretive Data was last revised on 2017. Eosinophil pct 2.2 % [facility] (JANE) Comment: Interpretive Data Percent cell count reference ranges are not reported, since discordance with absolute values may lead to misinterpretation of CBC data. Current Interpretive Data was last revised on 2017. Basophil pct 0.6 % [facility] ([place]ANE) Comment: Interpretive Data Percent cell count reference ranges are not reported, since discordance with absolute values may lead to misinterpretation of CBC data. Current Interpretive Data was last revised on 2017. Blood 09/04/2021 12:4 2 PM CDT 09/04/2021 1:29 PM CDT us Jocelynn Coy DO LAB BLOOD ORDERABLES Final Result [facility] ([place]ANE) [address] [facility] Department [place] [address] * Albumin Creatinine Ratio, Urine (09/04/2021 12:42 PM CDT) Albumin Ur <12.0 mg/L [facility] (JANE) Comment: Interpretive Data No reference range established. Current interpretive data was last revised 2018. Testing performed by: [facility], [address] [place] [address], [place]., [address] Creatinine Ur 113.6 mg/dL [facility] (JANE) Comment: Interpretive Data No reference range established. Current interpretive data was last revised 2018. Testing performed by: [facility], [address] [place] [address]., [id number] Albumin Creatinine Ratio, Ur <11 1 - 29 mg/g [facility] (JANE) Comment:Testing performed by : [facility], [address] [place] [address], [place]., [address] Urine 09/04/2021 12:4 2 PM CDT 09/04/2021 8:33 PM CDT us Jocelynn Coy DO LAB URINE ORDERABLES Final Result [facility] ([place]ANE) [address] [facility] [place] [address] * (ABNORMAL) CBC with auto differential (09/04/2021 [...] 41.0 35.7 - 48.1 fL [facility] (JANE) NRBC abs 0.00 0.00 - 0.01 K/cumm [facility] (JANE) Blood 09/04/2021 12:4 2 PM CDT 09/04/2021 1:29 PM CDT us Jocelynn Coy DO LAB BLOOD ORDERABLES Final Result Performing Organization Address City/[facility]/ZIP Co de Phone Number [facility] ([place]ANE) [address] [facility] [place] [address] * Comprehensive metabolic panel (09/04/2021 12:42 PM [...] 2 PM CDT 09/04/2021 1:29 PM CDT Jocelynn Coy DO LAB BLOOD ORDERABLES Final Result Performing Organization Address [facility]/ZIP Co de Phone Number [facility] ([place]) [address] [facility] [place] [address] * (ABNORMAL) Hemoglobin A1c (09/04/2021 12:42 PM [...] children were not included. ?? (Diabetes Care 31:[id number], 2008). ??The eAG is not equivalent to a fasting glucose. Blood 09/04/2021 12:4 2 PM CDT 09/04/2021 1:29 PM CDT us Jocelynn Coy DO LAB BLOOD ORDERABLES Final Result Performing Organization Address [facility]/[place] Co de Phone Number [facility] ([place]) [address] [facility] [place] [address] documented in this encounter Visit Diagnoses Diagnosis Type 2 diabetes mellitus with hyperglycemia, without long-term current use of insulin (HCC) Pre-op exam documented in this encounter Care Teams Clinical Cytopathologist Relationship Specialty Start Date End Date Jocelynn Coy DO PCP - General Family Medicine 06/10/17 09/02/23 documented as of this encounter
--- OUTSIDE RECORDS SUMMARY | 2024-03-31 14:22 | XMS_ITS | Encounter Summary ---
Author Organization [facility] Address [address] [place] [address] Care Team Providers Care Horticulture Teacher Name Role Phone Jocelynn Coy DO Primary Care Provider [phone]- [phone] Encounter Details Date Type Department Care Team (Late st Contact Info) Description 01/02/2022 Orders Only [facility] Primary Care at [address] [place] [address] Jocelynn Coy DO [address] [facility] [address] [address] Encounter for diabetic foot exam (CMS/HCC) ([facility]) (Primary Dx) Social History Tobacco Use Types [...] on file Legal Sex Female 8:45 PM SECONDARY SPECIAL EDUCATION TEACHER Gender Identity Female 04/25/2021 2:46 PM SECONDARY SPECIAL EDUCATION TEACHER Sexual Orientation Straight 04/25/2021 2: 46 PM SECONDARY SPECIAL EDUCATION TEACHER documented as of this encounter Plan of Treatment Not on file documented as of this encounter Visit Diagnoses Diagnosis Encounter for diabetic foot exam (CMS/HCC) (HCC)- Primary documented in this encounter Care Teams Horticulture Teacher Relationship Specialty Start Date End Date Jocelynn Coy DO PCP - General Family Medicine 06/10/17 09/02/23 documented as of this encounter
--- OUTSIDE RECORDS SUMMARY | 2024-03-31 14:22 | XMS_ITS | Encounter Summary ---
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) Procedures MRI Brain WO Contrast Brian Madera MD [address] [place] [address] [place] [address] Phone: tel: fax: [address] [phone] Referral ID Status Reason Start Date Expiration Date Visits Re quested Visits Authorized [id number] Closed 01/03/2022 04/03/2022 1 1 * Diagnostic Imaging (Routine) - Closed Specialty Diagnoses / Procedures Referred By Jamaal chiang Referred To Contact Diagnoses 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) Procedures FL Fluoro Guided Lumbar Puncture Brian Madera MD [address] [place] [address] [place] [address] Phone: tel: fax: [address] [phone] Referral ID Status Reason Start Date Expiration Date Visits Re quested Visits Authorized [id number] Closed 11/17/2021 12/17/2022 1 1 Reason for Visit * Consultation (Routine) - Closed Specialty Diagnoses / Procedures Referred By Contkurt t Referred To Contact Neurology Diagnoses 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) Jocelynn Coy DO Phone: tel: fax: Brian Madera MD [address] [place] [address] [address] [place] [address] Phone: tel: fax: Referral ID Status Reason Start Date Expiration Date V isits Requested Visits Authorized [id number] Closed Specialty Services Required 09/04/2021 04/14/2023 12 12 Encounter Details Date Type Department Care Team (Late st Contact Info) Description 11/17/2021 9:00 AM CDT Office Visit [facility] [address] [facility] [address] [place] [id number] Brian Madera MD [address] [place] [address] [address] [place] [address] 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 (CMS/HCC) (HCC) [...] on file 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 Gender Identity Female 04/25/2021 2:46 PM TECHNICAL SALES MANAGER Sexual Orientation Straight 04/25/2021 2: 46 PM TECHNICAL SALES MANAGER documented as of this encounter Last Filed Vital Signs Vital Sign Reading Time Taken Comments Blood Pressure 142/66 11/17/2021 9:03 AM CDT Pulse 69 11/17/2021 9:03 AM CDT Temperature - - Respiratory Rate - - Oxygen Saturation - - Inhaled Oxygen Concentration - - Weight 58.6 kg (129 lb 3.2 oz) 11/17/2021 9:03 A M CDT Height 149.9 cm (4' 11 ) 11/17/2021 9:03 AM CDT Body Mass Index 26.1 11/17/2021 9:03 AM CDT documented in this encounter Progress Notes * Brian Madera MD - 11/17/2021 9:00 AM CDT Subjective/Objective Patient ID: Annita Bose is a 81 y.o. female. Chief Complaint I am seeing this 81 y.o. female in consultation requested by Dr. Jocelynn Coy, for dementia. HPI The history is from daughter. The memory has been going on for about a few months. Over the time, the memory is getting no significant worse. she asked the same questions multiple times and forgot the conversation that happened not long time ago. She stopped driving because of cataract problem in last 1-2 years. She is independent with daily activity. No problem with cooking. Her in 10/2018. She is very mad about it. Daughter and patient can not be more specific. Patient herself denies problem with memory. She had 12 years of education. No family history of dementia in early age. Past medical history: Hypertension Hyperlipidemia Cataract No Known Allergies Current Outpatient Medications Medication Sig Dispense Refill ??? amLODIPine (NORVASC) 10 mg tablet Take 1 tablet (10 mg total) by mouth daily 90 tablet 3 ??? atorvastatin (LIPITOR) 20 mg tablet Take 1 tablet (20 mg total) by mouth daily 90 tablet 3 ??? blood glucose diagnostic strip Use one strip to monitor home blood sugars daily. 100 each 3 ??? blood-glucose meter kit 1 Device daily 1 each 0 ??? coenzyme Q10 100 mg capsule Take 100 mg by mouth daily ??? ketorolac (ACULAR) 0.5 % ophthalmic solution ??? lancets 31 gauge misc 1 Device daily 100 each 3 ??? lisinopriL (PRINIVIL,ZESTRIL) 2.5 mg tablet TAKE 1 TABLET BY MOUTH EVERY DAY 90 tablet 3 ??? LORazepam (ATIVAN) 0.5 mg tablet Take 1 tablet (0.5 mg total) by mouth as needed for anxiety 30tablet 5 ??? metFORMIN XR (GLUCOPHAGE XR) 500 mg 24 hr tablet TAKE 1 TABLET BY MOUTH EVERY DAY WITH BREAKFAST 90 tablet 3 ??? omega-3 fatty acids 1,000 mg capsule Take by mouth ??? prednisoLONE acetate (PRED FORTE) 1 % ophthalmic suspension OPHT 1 DROP INTO SURGICAL EYE 3 TIMES PER DAY STARTING AFTER SURGERY ??? rivastigmine (EXELON) 9.5 mg/[address] 9.5 mg on the skin daily 30 patch 11 No current facility-administered medications for this visit. has a current medication list which includes the following prescription(s): amlodipine, atorvastatin, blood glucose diagnostic, blood-glucose meter, coenzyme q10, ketorolac, lancets, lisinopril, lorazepam, metformin xr, omega-3 fatty acids, prednisolone acetate, and rivastigmine. Family History Problem Relation Age of Onset ??? Stomach cancer Sister Social History Tobacco Use ??? Smoking status: Never Smoker ??? Smokeless tobacco: Never Used Substance and Sexual Activity ??? Drug use: No ??? Sexual activity: None Alcohol Use: Not on file BP 142/66 Pulse 69 Ht 149.9 cm (4' 11 ) Wt 58.6 kg (129 lb 3.2 oz) BMI 26.10 kg/m?? Physical Exam Mental status: alert, speech [...] for dementia. History is kind of limited. 11/17/2021 [place] cognitive assessment (visuospatial/executive -4, naming -1, attention -4, language - 2, delayed recall -5). Diagnoses and all orders for this visit: 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 (CMS/HCC) ([facility]) - FL Fluoro Guided Lumbar Puncture; Future - Protein, total, CSF; Future - Glucose, CSF; Future - Alzheimer???s disease evaluation, CSF; Future - Cell count with reflex to differential, CSF; Future - Bacterial culture and gram stain, CSF CSF; Future - Vitamin B12; Future - Vitamin B6; Future - Folate; Future - MRI Brain WO Contrast; Future - TSH reflex to free T4; Future - I spent more than 60 minutes for patient's care. Return in about 6 weeks (around 12/29/2021). documented in this encounter Plan of Treatment Not on file documented as of this encounter Results * FL Fluoro Guided [...] was obtained. ??Prior to beginning the procedure, [place] Protocol was performed to confirm the patient's [...] AM T: ??01/17/2022 9:38 AM Report ID: [id number] Reading Location: ??[id number] Procedure Note Brian Merritt MD - 01/17/2022 [...] Brian Merritt M.D. MF: YONATHAN Report ID: [id number] Reading Location: [place] [address] us Brian Madera MD IMG FLUOROSCOPY PROCEDU RES Final Result * (ABNORMAL) Cell count with reflex to differential, CSF (01/17/2022 9:00 AM CDT) Tube Number, CSF Tube 4 [facility] (JANE) Color, CSF Colorless [facility] ([facility]) Clarity, CSF Clear [facility] (JAEN) Nucleated cells, CSF <3 0 - 5 /cumm [facility] (JANE) RBC, CSF <2,000.0(H) 0.0 - 0.0 /cumm [facility] ([facility]ANE) CSF 01/17/2022 9:00 AM CDT 01/17/2022 9:11 AM CDT us Brian Madera MD LAB BODY FLUIDS AND STO OLS ORDERABLES Final Result [facility] (JANE) [address] [facility] [place] [address] * Bacterial culture and gram stain, CSF CSF (01/17/2022 8:59 AM CDT) Direct Specimen Exam Stain: Cytospin Gram stain shows: No polymorphonuclear leukocytes seen. No organisms seen. [facility] (JANE) Comment:Testing performed by : [facility], [address] [place]., [address] Report Final Report: No growth [facility] (JANE) Comment:Testing performed by : [facility], [address] [place]., [address] CSF 01/17/2022 8:59 AM CDT 01/17/2022 9:55 AM CDT Narrative JOSE MARCELINO (JANE) - 01/22/2022 9:43 AM CDT Testing performed by [facility] Microbiology Laboratory ([phone]). Brian Madera MD LAB MICROBIOLOGY - GENE RAL ORDERABLES Final Result Performing Organization Address City/[facility]/ZIP Co de Phone Number JOSE MARCELINO (JANE) [address] [facility] [place] [address] * (ABNORMAL) Alzheimer???s disease evaluation, CSF (01/17/2022 8:59 AM CDT) p-Tau/Abeta42 0.035(H) <=0.023 [facility] ([place]ANE) Abeta42 699(L) >1026 pg/mL [facility] (JANE) Total-TAU 265(H) <=238 pg/mL [facility] ([place]ANE) Phospho-Tau(181P) 24.5(H) <=21.7 pg/mL [facility] (JANE) Comment: ADDITIONAL INFORMATION The testing method is an electrochemiluminescence assay manufactured by [employer] and performed on the Deborah system. Values obtained with different assay methods or kits may be different and cannot be used interchangeably. This test was developed and its performance characteristics determined by [facility] in a manner consistent with CLIA requirements. This test has not been cleared or approved by the U.S. Food and Drug Administration. Test Performed by: [facility] Laboratories - [facility] [address] [place] [address] Ladder Operator: Farrukh Waggoner M.D. Ph.D.; CLIA# [id number] CSF 01/17/2022 8:59 AM CDT 01/17/2022 9:10 AM CDT Brian Madera MD LAB GENETIC TESTING Fin al Result Performing Organization Address City/[facility]/ZIP Co de Phone Number JOSE MARCELINO (MARTY) [address] [place] [address] * Glucose, CSF (01/17/2022 8:59 AM CDT) Glucose, CSF 77 mg/dL [facility]EL[facility] (MARTY) Comment: Reference Interval Information: CSF Glucose should [...] FLUIDS AND STO OLS ORDERABLES Final Result Performing Organization Address City/[facility]/ZIP Co de Phone Number JOSE MARCELINO (MARTY) [address] [facility] [place] [address] * (ABNORMAL) Protein, total, CSF (01/17/2022 8:59 AM CDT) Protein, CSF 47(H) 5 - 45 mg/dL JOSE MARCELINO (MARTY) CSF 01/17/2022 8:59 AM CDT 01/17/2022 9:13 AM CDT us Brian Madera MD LAB BODY FLUIDS AND STO OLS ORDERABLES Final Result JOSE MARCELINO (MARTY) [address] [facility] [place] [address] * MRI Brain WO Contrast (01/03/2022 11:28 [...] cerebral hemispheres is nonspecific but compatible with ioqc-[id number]-[id number] chronic microvascular ischemic type change in a [...] AM T: ??01/03/2022 11:40 AM Report ID: [id number] Reading Location: ??[id number] Procedure Note Donaldo Betts, DO - 01/03/2022 EXAM DESCRIPTION: MRI BRAIN [...] cerebral hemispheres is nonspecific but compatible with udki-yh-[id number] chronic microvascular ischemic type change in a [...] Electronically signed by Donaldo Betts D.O. AP: AP Report ID: [id number] Reading Location: [place] [address] us Brian Madera MD IMG MRI PROCEDURES Marisel l Result * TSH reflex to free T4 (11/17/2021 10:16 AM CDT) TSH 1.51 0.30 - 4.20 mcIUnit/mL [facility] (JANE) Blood 11/17/2021 10:1 6 AM CDT 11/17/2021 1:51 PM CDT Brian Madera MD LAB BLOOD ORDERABLES Ed ited Result - Final JOSE M[facility]ELINO (JANE) [address] [facility] [place] [address] * Folate (11/17/2021 10:16 AM CDT) Folic acid >20.0 >=5.0 ng/mL [facility] M[facility]EL[facility] (JANE) Comment: Hemolysis present. ??Results may be affected. Testing performed by: [facility], [address] [place] [address]., [address] Blood 11/17/2021 10:1 6 AM CDT 11/17/2021 6:07 PM CDT Brian Madera MD LAB BLOOD ORDERABLES Fi nal Result Performing Organization Address [facility]/ZIP Co de Phone Number JOSE MARCELINO (JANE) [address] [place] [address] * Vitamin B6 (11/17/2021 10:16 AM CDT) Pyridoxal phosphate (Vit B6) 8 5 - 50 mcg/L JOSE MARCELINO (JANE) Comment: ADDITIONAL INFORMATION This test was developed and its performance characteristics determined by [facility] in a manner consistent with CLIA requirements. This test has not been cleared or approved by the U.S. Food and Drug Administration. Test Performed by: [facility] - [facility] [address] [place] [address] Ladder Operator: Farrukh Waggoner M.D. Ph.D.; CLIA# [id number] Blood 11/17/2021 10:1 6 AM CDT 11/17/2021 1:51 PM CDT Brian Madera MD LAB BLOOD ORDERABLES Fi nal Result Performing Organization Address [facility]/ZIP Co de Phone Number JOSE MARCELINO (JANE) [address] [place] [address] * Vitamin B12 (11/17/2021 10:16 AM CDT) Vitamin B12 649 230 - 1,250 pg/mL JOSE MARCELINO (JANE) Comment:Testing performed by : [facility], [address] [place] [address], [place]., [address] Blood 11/17/2021 10:1 6 AM CDT 11/17/2021 6:07 PM CDT us Brian Madera MD LAB BLOOD ORDERABLES Fi nal Result JOSE MARCELINO (MARTY) [address] [facility] [place] [address] documented in this encounter Visit Diagnoses Diagnosis 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
--- OUTSIDE RECORDS SUMMARY | 2024-03-31 14:22 | XMS_ITS | Encounter Summary ---
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 * Result Encounter Note - Kristen Vilchis NP - 11/13/2021 5:24 PM CDT Continue current tx * Result Encounter Note - Vijaya Dunham PA - 11/07/2021 12:40 PM CDT Patient was prescribed Bactrim. Wait for final result. documented in this encounter Plan of Treatment Not on file documented as of this encounter Procedures Procedure Name Priority Date/Time Associated Diagnosis Comments AEROBIC AND ANAEROBIC CULTURE AND GRAM STAIN Routine 11/06/2021 7:24 PM CDT Abscess of skin of neck documented in this encounter Results * (ABNORMAL) Aerobic and anaerobic culture and gram stain Abscess Neck, left (11/06/2021 7:24 PM CDT) Direct Specimen Exam Stain: Rare polymorphonuclear leukocytes seen. Few Gram Positive Cocci JOSE Comment:Testing performed by : [facility], [address] [place]., [address] Report Final Report: Few Finegoldia magna (.) JOSE Comment:Testing performed by : [facility], [address] [place]., [address] Organism FINEGOLDIA MAGNA JOSE Abscess (Neck, left) 11/06/2021 7:24 PM CDT 11/07/2021 9:57 AM CDT Narrative JOSE - 11/13/2021 1:17 PM CDT Testing performed by [facility] Microbiology Laboratory ([phone]) Specimens submitted from normally sterile body sites [...] MICROBIOLOGY - GENERAL ORDERABLES Final Result JOSE [address] [place] [address] documented in this encounter Visit Diagnoses Diagnosis Abscess of skin of neck documented in this encounter Care Teams Forensic Science Technician Relationship Specialty Start Date End Date Jocelynn Coy DO PCP - General Family Medicine 06/10/17 09/02/23 documented as of this encounter
--- OUTSIDE RECORDS SUMMARY | 2024-03-31 14:22 | XMS_ITS | Encounter Summary ---
Author Organization [facility] Medical Group Address [address] [place] [address] Care Team Providers Care Firewood Cutter Name Role Phone Jocelynn Coy DO Primary Care Provider [phone] Brian Madera MD Unavailable [phone] Reason for Visit * Reason Comments Essence Enhanced Encounter Encounter Details Date Type Department Care Team (Late st Contact Info) Description 04/02/2022 1:45 PM HAIR TINTER Office Visit [facility] Primary Care at [address] [place] [address] Jocelynn Coy DO [address] [facility] [address] [address] Annual physical exam (Primary Dx); Hypertension associated with diabetes (HCC); Hyperlipidemia associated with type 2 diabetes mellitus (HCC); Type 2 diabetes mellitus with hyperglycemia, without long-term current use of insulin (CMS/HCC) (HCC); Generalized anxiety disorder; 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); Need for influenza vaccination Social History Tobacco [...] on file Legal Sex Female 8:45 PM HAIR TINTER Gender Identity Female 04/25/2021 2:46 PM HAIR TINTER Sexual Orientation Straight 04/25/2021 2: 46 PM HAIR TINTER documented as of this encounter Last Filed Vital Signs Vital Sign Reading Time Taken Comments Blood Pressure 127/68 04/02/2022 2:36 PM HAIR TINTER Pulse 79 04/02/2022 2:36 PM HAIR TINTER Temperature 36.7 ??C (98 ??F) 04/02/2022 1:58 PM HAIR TINTER Respiratory Rate 14 04/02/2022 1:58 PM HAIR TINTER Oxygen Saturation 98% 04/02/2022 1:58 PM HAIR TINTER Inhaled Oxygen Concentration - - Weight 61.1 kg (134 lb 12.8 oz) 04/02/2022 1:58 PM HAIR TINTER Height 149.9 cm (4' 11.02 ) 04/02/2022 1:[address] Body Mass Index 27.21 04/02/2022 1:58 PM HAIR TINTER documented in this encounter Patient Instructions * Patient Instructions* Jocelynn Coy, - 04/02/2022 1:45 PM HAIR TINTER Images from the original note were not included. Patient Education Wellness Visit for Adults DATA CONSULTANT: A wellness visit is when you see [...] viruses cause the flu. The viruses change management manager time, so new vaccines are made each [...] develops in people who had chickenpox or havebeen exposed to the virus. How to eat [...] amples of healthy foods are listed below: Eat [...] could distract you and cause an accident. vat overhauler if you need to make a call [...] boat or doing water sports. ?? 2017 [employer] Information is for End User's use only and may not be sold, redistributed or otherwise used for commercial purposes. All illustrations and images included in CareNotes?? are the copyrighted property of [employer].D.A.M[employer] Inc[employer] or [employer]. The above information is an food preparation kitchen aide only. It is not intended as medical advice for individual conditions or treatments. Talk to your doctor, nurse or pharmacist before following any medical regimen to see if it is safe and effective for you. Health Maintenance Topics with due status: Overdue Topic Date Due Dilated Eye Exam Never done Zoster Vaccines Never done Covid-19 Vaccine 11/19/2020 Lipid Panel 09/26/2021 Influenza Vaccine 12/14/2021 Foot Exam 01/09/2022 Hemoglobin A1C 03/07/2022 Health Maintenance Topics with due status: Due On Topic Date Due Well Visit 65+ 03/30/2022 Thanks for coming in today! My medical case worker, Mikaela, and sometimes (America, Yoselin, or Delphine) and I are thankful you have trusted us with your care, and hope that you received EXCELLENT care today! Although some conditions may not allow immediate improvement, I aim to always make you feel a little better leaving, than when you came in. Please do not hesitate to call, if you have any questions or concerns, at [phone]. You may receive a phone call, text, MYCHART message, or e-mail asking you to take a survey about your care today. We would love to hear your feedback on how EXCELLENTyour care was today! Wishing you better health, always! Dr. Jocelynn Coy TINTER documented in this encounter Ordered Prescriptions Prescription Sig Dispense Quantity Refills Last Filled Start Date End Date LORazepam (ATIVAN) 0.5 mg tabletIndications: Generalized anxiety disorder Take 1 tablet (0.5 mg total) by mouth as needed for anxiety 30 tablet 5 04/02/2022 3 documented in this encounter Progress Notes * Jocelynn Coy DO - 04/02/2022 1:45 PM CST Images from the original note were not included. ANNUAL WELLNESS VISIT Annita Bose patient returns to clinic today for her annual wellness visit. She denies any side effects her current medications and is without complaints. Medicare Health Risk Assessment Basic Information In general, would you say your health is: Good Do you have an advance directive, such as a living will or durable power of attorney at law?: No Would you like information regarding Advanced Directiv (Living Will) and/or Durable Power of Analytics Developer?: Yes Do you have to strain or struggle to hear/understand conversations?: Yes Have you experienced any of the following problems currently or recently? Eating: No Grooming: No Bathing: No Walking: No Using the toilet: No Memory problems: Yes Difficulty speaking: No Pain: Yes (Arthritis, Both knees, and back) Sexual Health: No Fatigue: No Have you experienced any of the following problems currently or recently? 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 No pertinent past medical history. [...] activity: None Alcohol Use: Not on file Allergies: No Known Allergies Medications: Current Outpatient Medications: amLODIPine (NORVASC) 10 mg tablet, Take 1 tablet (10 mg total) by mouth daily, Disp: 90 tablet, Rfl: 3 atorvastatin (LIPITOR) 20 mg tablet, TAKE 1 TABLET BY MOUTH EVERY DAY, Disp: 90 tablet, Rfl: 1 blood glucose diagnostic strip, Use one strip to monitor home blood sugars daily., Disp: 100 each, Rfl: 3 blood-glucose meter kit, 1 Device daily, Disp: 1 each, Rfl: 0 coenzyme Q10 100 mg capsule, Take 100 mg by mouth daily, Disp: , Rfl: lancets 31 gauge misc, 1 Device daily, Disp: 100 each, Rfl: 3 lisinopriL (PRINIVIL,ZESTRIL) 2.5 mg tablet, TAKE 1 TABLET BY MOUTH EVERY DAY, Disp: 90 tablet, Rfl: 3 memantine (NAMENDA) 10 mg tablet, TAKE 1/2 TABLET BY MOUTH TWICE DAILY FOR 2 WEEKS, THEN TAKE 1 TABLET BY MOUTH TWICE DAILY, Disp: 180 tablet, Rfl: 1 metFORMIN XR (GLUCOPHAGE XR) 500 mg 24 hr tablet, TAKE 1 TABLET BY MOUTH EVERY DAY WITH BREAKFAST, Disp: 90 tablet, Rfl: 3 omega-3 fatty acids 1,000 mg capsule, Take by mouth, Disp: , Rfl: LORazepam (ATIVAN) 0.5 mg tablet, Take 1 tablet (0.5 mg total) by mouth as needed for anxiety, Disp: 30 tablet, Rfl: 5 Depression Screen: PHQ Screening Over the last 2 weeks, how often have you been bothered by any of the following problems? Little Interest or Pleasure in Doing Things: Not at all Feeling Down, Depressed, or Hopeless: Several days (sometimes feel down) PHQ-2 Total Score (If total score is 3 or more points, staff should administer the PHQ-9): 1 Over the past 2 weeks, how often have you been bothered by any of the following problems? Little Interest or Pleasure in Doing Things: Not at all Feeling Down, Depressed, or Hopeless: Several days (sometimes feel down) PHQ-2 Total Score (If total score is 3 or more points, staff should administer the PHQ-9): 1 PHQ Screening PHQ-2 Total Score (If total score is 3 or more points, staff should administer the PHQ-9): 1 Review of Systems Unable to perform ROS: Dementia Constitutional: Negative for fever. Respiratory: Negative for shortness of breath. Cardiovascular: Negative for chest pain. Gastrointestinal: Negative for abdominal pain and blood in stool. Neurological: Negative for headaches. Psychiatric/Behavioral: The patient is nervous/anxious. All other systems reviewed and are negative. Vitals: Vitals BP 127/68 (BP Location: Left arm, Patient Position: Standing) Pulse 79 Temp 36.7 ??C (98 ??F) (Oral) Resp 14 Ht 149.9 cm (4' 11.02 ) Wt 61.1 kg (134 lb 12.8 oz) SpO2 98% BMI 27.21 kg/m?? Body mass index is 27.21 kg/m??. Exam: Physical Exam Vitals and nursing [...] Component Value Date HGBA1C 7.0 (H) 09/04/2021 Care Team Providers: Patient Care Team: Jocelynn Coy DO as PCP - General (Family Medicine) Brian Madera MD as Consulting Physician (Neurology) Primary Pharmacy/DME suppliers: [id number] [address] [address] Detection of Cognitive Impairment: The patient does have cognitive impairment based on direct observation, discussion with patient or family, or review of medical records. Health Maintenance: Health Maintenance Topics with due status: Overdue Topic Date Due Dilated Eye Exam Never done Zoster Vaccines Never done Covid-19 Vaccine 06/12/2021 Lipid Panel 09/26/2021 Foot Exam 01/09/2022 Hemoglobin A1C 03/07/2022 Health Maintenance Topics with due status: Postponed Topic Postponed Until Osteoporosis Screening-Bone Density Scan 03/04/2045 (Originally 1940) Health Maintenance Topics with due status: Not Due Topic Last Completion Date DTaP/Tdap/Td Vaccine 01/14/2016 Urine Microalbumin 09/04/2021 Fall Risk Assessment 04/02/2022 Depression Screening-PHQ 04/02/2022 Well Visit 65+ 04/02/2022 Health Maintenance Topics with due status: Completed Topic Last Completion Date Pneumococcal vaccine 65+ 03/14/2018 Influenza Vaccine 04/02/2022 Counseling and Referral of Preventative Services: Lifestyle Recommendations Increase Physical Activity Advanced Directive Durable Power of Analytics Developer: Discussed Today: Living Will: Discussed Today: Assessment and Plan: Diagnoses and all orders for this visit: Annual physical exam (Primary) Comments: Well exam, health maintenance updated. Hypertension associated with diabetes (HCC) Assessment & Plan: Blood pressure is at goal of less than 140/90, continue current prescription medications. Orders: - Comprehensive metabolic panel; Future - Lipid panel; Future Hyperlipidemia associated with type 2 diabetes mellitus ([facility]) Assessment & Plan: LDL at goal of less than 100, continue current prescription medications. Orders: - Comprehensive metabolic panel; Future - Lipid panel; Future Type 2 diabetes mellitus with hyperglycemia, without long-term current use of insulin ([facility]) (HCC) Assessment & Plan: A1c at goal of less than 8.0, continue current prescription medications. Orders: - Hemoglobin A1c; Future Generalized anxiety disorder Assessment & Plan: Clinically improved, continue current prescription medications. Orders: - LORazepam (ATIVAN) 0.5 mg tablet; Take 1 tablet (0.5 mg total) by mouth as needed for anxiety Late onset Alzheimer's dementia without behavioral disturbance ([facility]) Assessment & Plan: Stable. Cont. Current prescription medications. Need for influenza vaccination - Flu Vaccine Quad High Dose PF 65Y+ IM - Fluzone High Dose Quad Patient here for annual Medicare wellness visit and for review of complete medical problem list. All the elements of the plan were completed as outlined by [facility]. A copy of the prevention plan was [...] This note is dictated and transcribed by [employer]. Airline Radio Operator variances may occur. Despite proofreading, typographical errors may occur. Jocelynn Coy DO TINTER documented in this encounter Miscellaneous Notes * Assessment & Plan Note - Jocelynn Coy DO - 04/02/2022 4:24 PM HAIR TINTER Associated Problem(s): Type 2 diabetes mellitus with hyperglycemia, without long-term current use of insulin ([facility]) A1c at goal of less than 8.0, continue current prescription medications. 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 Cont. Current prescription medications. TINTER * Assessment & Plan Note - Jocelynn Coy DO - 04/02/2022 4:24 PM HAIR TINTER Associated Problem(s): Hypertension associated with diabetes (HCC) Blood pressure is at goal of less than 140/90, continue current prescription medications. TINTER * Assessment & Plan Note - Jocelynn Coy DO - 04/02/2022 4:23 PM HAIR TINTER Associated Problem(s): Hyperlipidemia associated with type 2 diabetes mellitus (HCC) LDL at goal of less than 100, continue current prescription medications. TINTER * Assessment & Plan Note - Jocelynn Coy DO - 04/02/2022 4:23 PM HAIR TINTER Associated Problem(s): Generalized anxiety disorder Clinically improved, continue current prescription medications. TINTER documented in this encounter Plan of Treatment Not on file documented as of this encounter Results * Lipid panel (04/02/2022 3:52 PM HAIR TINTER) [facility] Cholesterol 145 30 - 199 mg/dL JOSE MARCELINO (JANE) [...] Data was last revised on 2017. Triglycerides 41 <=149 mg/dL JOSE MARCELINO (JANE) Comment: Interpretive [...] Data was last revised on 2017. HDL 76 >=40 mg/dL JOSE LIRIANO) Comment: Interpretive Data [...] was last revised on 2017. LDL, calculated 61 <=129 mg/dL JOSE MARCELINO (JANE) Comment: Interpretive [...] was last revised on 2017. Non-HDL Cholesterol 69 mg/dL JOSE MARCELINO (JANE) Comment: Interpretive Data [...] Chol/HDL ratio 2 YUKI MARCELINO (JANE) Blood 04/02/2022 3:52 PM HAIR TINTER 04/02/2022 4:58 PM HAIR TINTER Jocelynn Coy DO LAB BLOOD ORDERABLES Final Result JOSE MARCELINO (JANE) [address] [facility] [place] [address] * (ABNORMAL) Hemoglobin A1c (04/02/2022 3:52 PM HAIR TINTER) Hgb A1C 7.3(H) 4.0 - 5.6 % [facility] (JANE) Estimated Average Glucose 163 mg/dL [facility] (JANE) Comment: The ADA recommends reporting an estimated Average Glucose (eAG) with all Hemoglobin A1c results using the equation derived from a study of 507 normal and diabetic adults. ??Minority populations were underrepresented and children were not included. ?? (Diabetes Care 31:8973-6890, 2008). ??The eAG is not equivalent to a fasting glucose. Blood 04/02/2022 3:52 PM HAIR TINTER 04/02/2022 4:58 PM HAIR TINTER Jocelynn Coy DO LAB BLOOD ORDERABLES Final Result JOSE MARCELINO (DRAY[place]) [address] [facility] [place] [address] * Comprehensive metabolic panel (04/02/2022 3:52 PM HAIR TINTER) Sodium 137 135 - 145 mmol/L [facility] (JANE) Potassium, pl 3.8 3.3 - 4.9 mmol/L [facility] (JNAE) Chloride 101 97 - 110 mmol/L [facility] (JANE) CO2 28 22 - 32 mmol/L [facility] (JANE) Anion gap 8 2 - 15 mmol/L [facility] (JANE) BUN 12 8 - 25 mg/dL [facility] (JANE) Creatinine 0.68 0.60 - 1.10 mg/dL [facility] (JANE) Glucose 84 70 - 199 mg/dL [facility] (JANE) Comment: Interpretive Data Fasting glucose >/= [...] interpretive data was last revised 2017. Calcium 9.3 8.5 - 10.3 mg/dL [facility] [...] - 45 Units/L [facility] (JANE) Blood 04/02/2022 3:52 PM HAIR TINTER 04/02/2022 4:58 PM HAIR TINTER us Jocelynn Coy DO LAB BLOOD ORDERABLES Final Result [facility] (JANE) [address] [facility] Department [place] [address] documented in this encounter Visit Diagnoses Diagnosis Annual physical exam- Primary Routine general medical examination at a health care facility Hypertension associated with diabetes (HCC) Unspecified essential hypertension Hyperlipidemia associated with type 2 diabetes mellitus (HCC) Type 2 diabetes mellitus with hyperglycemia, without long-term current use of insulin (HCC) Generalized anxiety disorder 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) Need for influenza vaccination Need for prophylactic vaccination and inoculation against influenza documented in this encounter Discontinued Medications Medication Sig Discontinue Reason Start Date End Da te ketorolac (ACULAR) 0.5 % ophthalmic solution Therapy completed 09/22/2021 04/02/20 22 prednisoLONE acetate (PRED FORTE) 1 % ophthalmic suspension OPHT 1 DROP INTO SURGICAL EYE 3 TIMES PER DAY STARTING AFTER SURGERY Therapy completed 09/04/2021 04/02/2022 LORazepam (ATIVAN) 0.5 mg tabletIndications:Gener alized anxiety disorder Take 1 tablet (0.5 mg total) by mouth as needed for anxiety Reorder 10/06/2021 04/02/2022 documented as of this encounter Orders Immunization/Injection Count Last Ordered Date First Ordered Date FLU VACCINE HIGH DOSE QUAD P F 65Y+ IM - FLUZONE HIGH DOS 1 04/02/2022 documented in this encounter Care Teams Firewood Cutter Relationship Specialty Start Date End Date Jocelynn Coy DO PCP - General Family Medicine 06/10/17 09/02/23 Brian Madera MD [address] [place] [address] [place] [address] Consulting Physician Neurology 04/02/22 documented as of this encounter
--- OUTSIDE RECORDS SUMMARY | 2024-03-31 14:22 | XMS_ITS | Encounter Summary ---
Author Organization [facility] Healthcare Address [address] [place] [address] Care Team Providers Care Rip Tailer Name Role Phone Jocelynn Coy Primary Care Provider [phone] Brian Madera MD Unavailable [phone] Encounter Details Date Type Department Care Team (Late st Contact Info) Description 04/02/2022 3:45 PM MEDICAL TECHNOLOGIST PRN [address] [address] Hypertension associated with diabetes (HCC); Hyperlipidemia associated [...] on file Legal Sex Female 8:45 PM MEDICAL TECHNOLOGIST PRN Gender Identity Female 04/25/2021 2:46 PM MEDICAL TECHNOLOGIST PRN Sexual Orientation Straight 04/25/2021 2: 46 PM MEDICAL TECHNOLOGIST PRN documented as of this encounter Plan of Treatment Not on file documented as of this encounter Procedures Procedure Name Priority Date/Time Associated Diagnosis Comments EGFR Routine 04/02/2022 3:52 PM MEDICAL TECHNOLOGIST PRN Hypertension associated with diabetes (HCC) Hyperlipidemia associated with type 2 diabetes mellitus (HCC) HEMOGLOBIN A1C Routine 04/02/2022 3:52 PM MEDICAL TECHNOLOGIST PRN Type 2 diabetes mellitus with hyperglycemia, without long-term current use of insulin (CMS/HCC) (HCC) LIPID PANEL Routine 04/02/2022 3:52 PM MEDICAL TECHNOLOGIST PRN Hypertension associated with diabetes (HCC) Hyperlipidemia associated with type 2 diabetes mellitus (HCC) COMPREHENSIVE METABOLIC PANEL Routine 04/02/2022 3:52 PM MEDICAL TECHNOLOGIST PRN Hypertension associated with diabetes (HCC) Hyperlipidemia associated with type 2 diabetes mellitus (HCC) documented in this encounter Results * eGFR (04/02/2022 3:52 PM MEDICAL TECHNOLOGIST PRN) eGFR 88 mL/min/1. 73 m2 JOSE MARCELINO (JANE) Comment: [...] interpretive data was last reviewed 2021. Blood 04/02/2022 3:52 PM MEDICAL TECHNOLOGIST PRN 04/02/2022 4:58 PM MEDICAL TECHNOLOGIST PRN us Jocelynn Coy DO LAB BLOOD ORDERABLES Final Result [facility] (JANE) 1 [facility] Department [place] [address] * Comprehensive metabolic panel (04/02/2022 3:52 PM MEDICAL TECHNOLOGIST PRN) Sodium 137 135 - 145 mmol/L [facility] (JANE) Potassium, pl 3.8 3.3 - 4.9 mmol/L [facility] (JANE) Chloride 101 97 - 110 mmol/L [facility] (JANE) CO2 28 22 - 32 mmol/L [facility] (JANE) Anion gap 8 2 - 15 mmol/L [facility] (JANE) BUN 12 8 - 25 mg/dL [facility] (JANE) Creatinine 0.68 0.60 - 1.10 mg/dL [facility] (JANE) Glucose 84 70 - 199 mg/dL [facility] (JANE) [...] [facility] (JANE) Blood 04/02/2022 3:52 PM MEDICAL TECHNOLOGIST PRN 04/02/2022 4:58 PM MEDICAL TECHNOLOGIST PRN Jocelynn Coy DO LAB BLOOD ORDERABLES Final Result Performing Organization Address [facility] Co de Phone Number [facility]) [address] [facility] [place] [address] * (ABNORMAL) Hemoglobin A1c (04/02/2022 3:52 PM MEDICAL TECHNOLOGIST PRN) Hgb A1C 7.3(H) 4.0 - 5.6 % [facility] ([facility]) Estimated Average Glucose 163 mg/dL [facility] ([facility]) Comment: The ADA recommends reporting an estimated Average Glucose (eAG) with all Hemoglobin A1c results using the equation derived from a study of 507 normal and diabetic adults. ??Minority populations were underrepresented and children were not included. ?? (Diabetes Care 31:5711-8830, 2008). ??The eAG is not equivalent to a fasting glucose. Blood 04/02/2022 3:52 PM MEDICAL TECHNOLOGIST PRN 04/02/2022 4:58 PM MEDICAL TECHNOLOGIST PRN Jocelynn Coy DO LAB BLOOD ORDERABLES Final Result Performing Organization Address [facility] Co de Phone Number [facility] ([facility]) [address] [facility] [place] [address] * Lipid panel (04/02/2022 3:52 PM MEDICAL TECHNOLOGIST PRN) Cholesterol 145 30 - 199 mg/dL JOSE [...] on 2017. HDL 76 >=40 mg/dL [facility] (JANE) Comment: Interpretive [...] YUKI MARCELINO (JANE) Blood 04/02/2022 3:52 PM MEDICAL TECHNOLOGIST PRN 04/02/2022 4:58 PM MEDICAL TECHNOLOGIST PRN us Jocelynn Coy DO LAB BLOOD ORDERABLES Final Result JOSE MARCELINO (JANE) 1 [facility] Department [place] [address] documented in this encounter Visit Diagnoses Diagnosis Hypertension associated with diabetes (HCC) Unspecified essential hypertension Hyperlipidemia associated with type 2 diabetes mellitus (HCC) Type 2 diabetes mellitus with hyperglycemia, without long-term current use of insulin (HCC) documented in this encounter Care Teams Rip Tailer Relationship Specialty Start Date End Date Jocelynn Coy DO Abdulaziz PCP - General Family Medicine 06/10/17 09/02/23 Brian Madera MD [address] [place] [address] [address] [facility] [place] [address] Consulting Physician Neurology 04/02/22 documented as of this encounter
--- OUTSIDE RECORDS SUMMARY | 2024-03-31 14:22 | XMS_ITS | Encounter Summary ---
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) Jocelynn Coy DO Phone: tel: fax: Brian Madera MD [address] [place] [address] [place] [address] Phone: tel: fax: Referral ID Status Reason Start Date Expiration Date V isits Requested Visits Authorized [id number] Closed Specialty Services Required 09/04/2021 04/14/2023 12 12 Encounter Details Date Type Department Care Team (Late st Contact Info) Description 02/08/2022 11:45 AM CDT Office Visit [facility] [place] [address] [facility] [address] [place] [address] Brian Madera MD [address] [place] [address] [address] [place] [address] Late onset Alzheimer's dementia without behavioral disturbance [...] on file Legal Sex Female 8:45 PM MANAGING DIRECTOR ATLAS Gender Identity Female 04/25/2021 2:46 PM MANAGING DIRECTOR ATLAS Sexual Orientation Straight 04/25/2021 2: 46 PM MANAGING DIRECTOR ATLAS documented as of this encounter Last Filed Vital Signs Vital Sign Reading Time Taken Comments Blood Pressure 131/68 02/08/2022 11:46 AM CDT Pulse 81 02/08/2022 11:46 AM CDT Temperature - - Respiratory Rate - - Oxygen Saturation - - Inhaled Oxygen Concentration - - Weight 62.5 kg (137 lb 12.8 oz) 022 11:46 AM CDT Height 149.9 cm (4' 11 ) 02/08/2022 11: 46 AM CDT Body Mass Index 27.83 02/08/2022 11:46 AM CDT documented in this encounter Ordered Prescriptions Prescription Sig Dispense Quantity Refills Last Filled Start Date End Date memantine (NAMENDA) 10 mg tabletIndications: Moderate to Severe Alzheimer's Type Dementia Take half tablet po bid for two weeks, then one tablet po bid 60 tablet 3 02/08/2022 03/12/2022 documented in this encounter Progress Notes * Brian Madera MD - 02/08/2022 11:45 AM CDT Subjective/Objective Patient ID: Annita Bose is a 81 y.o. female. Chief Complaint I am seeing this 81 y.o. female in consultation requested by Dr. Jocelynn Coy DO for dementia. HPI For details, see 11/17/2021 note. Since last visit on 11/17/2021, no change with memory. She had MRI of the brain which showed no acuteintracranial process. No evidence of hydrocephalus. Slight periventricular nonspecific small vesselwhite matter disease. Vitamin B12, folic acid and vitamin B6 were unremarkable. CSF Alzheimer's dementia biomarker showed elevated p-Tau/Abeta42 ratio which is consistent with the presence of patholog ical changes associated with Alzheimer's disease. She has [...] 0 coenzyme Q10 100 mg capsule Take 100 mg by mouth daily ketorolac (ACULAR) 0.5 % ophthalmic solution lancets 31 gauge misc 1 Device daily 100 each 3 lisinopriL (PRINIVIL,ZESTRIL) 2.5 mg tablet TAKE 1 TABLET BY MOUTH EVERY DAY 90 tablet 3 LORazepam (ATIVAN) 0.5 mg tablet Take 1 tablet (0.5 mg total) by mouth as needed for anxiety 30 tablet 5 metFORMIN XR (GLUCOPHAGE XR) 500 mg 24 hr tablet TAKE 1 TABLET BY MOUTH EVERY DAY WITH BREAKFAST 90tablet 3 omega-3 fatty acids 1,000 mg capsule Take by mouth prednisoLONE acetate (PRED FORTE) 1 % ophthalmic suspension OPHT 1 DROP INTO SURGICAL EYE 3 TIMES PER DAY STARTING AFTER SURGERY memantine (NAMENDA) 10 mg tablet Take half tablet po bid for two weeks, then one tablet po bid 60 tablet 3 No current facility-administered medications for this visit. has a current medication list which includes the following prescription(s): amlodipine, atorvastatin, blood glucose diagnostic, blood-glucose meter, coenzyme q10, ketorolac, lancets, lisinopril, lorazepam, metformin xr, omega-3 fatty acids, prednisolone acetate, and memantine. Family History Problem Relation Age of Onset Stomach cancer Sister Social History Tobacco Use Smoking status: Never Smokeless tobacco: Never Substance and Sexual Activity Drug use: No Sexual activity: None Alcohol Use: Not on file BP 131/68 Pulse 81 Ht 149.9 cm (4' 11 ) Wt 62.5 kg (137 lb 12.8 oz) BMI 27.83 kg/m?? Physical Exam Mental status: alert, speech [...] dementia. History is kind of limited. 11/17/2021 [place] cognitive assessment 15/30 (visuospatial/executive -4, naming -1, attention -4, language - 2, delayed recall -5). CSF Alzheimer's disease biomarker is supportive diagnosis of Alzheimer's dementia. Exelon patch caused skin irritation. 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 b.i.d. [...] (<=238 pg/mL). Phospho tau 24.5 (<=21.7 pg/mL) Return in about 6 months (around 08/09/2022) for with colby. 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
--- OUTSIDE RECORDS SUMMARY | 2024-03-31 14:22 | XMS_ITS | Encounter Summary ---
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 (CMS/HCC) (HCC) [...] on file Legal Sex Female 8:45 PM PORTABLE CANTEEN OPERATOR Gender Identity Female 04/25/2021 2:46 PM PORTABLE CANTEEN OPERATOR Sexual Orientation Straight 04/25/2021 2: 46 PM PORTABLE CANTEEN OPERATOR documented as of this encounter Discharge Disposition Disposition Code Departure Means Destination Discharge to home or self care documented in this encounter Plan of Treatment Not on file documented as of this encounter Procedures Procedure Name Priority Date/Time Associated Diagnosis Comments THYROID FUNCTION CASCADE Routine 11/17/2021 10:16 AM CDT 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 (CMS/HCC) (HCC) VITAMIN B6 Routine 11/17/2021 10:16 AM CDT 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 (CMS/HCC) (HCC) FOLATE Routine 11/17/2021 10:16 AM CDT 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 (CMS/HCC) (HCC) VITAMIN B12 Routine 11/17/2021 10:16 AM CDT 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 (CMS/HCC) (HCC) documented in this encounter Results * Vitamin B12 (11/17/2021 10:16 AM CDT) Vitamin B12 649 230 - 1,250 pg/mL JOSE MARCELINO ([place]) Comment:Testing performed by : [facility], [address] [place] [address], [id number] Blood 11/17/2021 10:1 6 AM CDT 11/17/2021 6:07 PM CDT us Brian Madera MD LAB BLOOD ORDERABLES [facility] Result JOSE MARCELINO ([place]) 1 [facility] Department [place] [address] * Vitamin B6 (11/17/2021 10:16 AM CDT) Pyridoxal phosphate (Vit B6) 8 5 - 50 mcg/L JOSE MARCELINO ([place]) Comment: ADDITIONAL INFORMATION This test was developed and its performance characteristics determined by [facility] in a manner consistent with CLIA requirements. This test has not been cleared or approved by the U.S. Food and Drug Administration. Test Performed by: [facility] - [address] [address] Transport Engineer: Farrukh Waggoner M.D. Ph.D.; CLIA# [id number] Blood 11/17/2021 10:1 6 AM CDT 11/17/2021 1:51 PM CDT Brian Madera MD LAB BLOOD ORDERABLES Fi nal Result JOSE MARCELINO ([place]) 1 [facility] [place] [address] * Folate (11/17/2021 10:16 AM CDT) Folic acid >20.0 >=5.0 ng/mL JOSE CHARI ([place]) Comment: Hemolysis present. ??Results may be affected. Testing performed by: [facility], [address] [place] [address]., [id number] Blood 11/17/2021 10:1 6 AM CDT 11/17/2021 6:07 PM CDT us Brian Madera MD LAB BLOOD ORDERABLES Fi nal Result Performing Organization Address [facility] Co de Phone Number JOSE MARCELINO ([place]) 1 [place] [address] * TSH reflex to free T4 (11/17/2021 10:16 AM CDT) TSH 1.51 0.30 - 4.20 mcIUnit/mL JOSE MARCELINO ([place]) Blood 11/17/2021 10:1 6 AM CDT 11/17/2021 1:51 PM CDT Brian Madera MD LAB BLOOD ORDERABLES Ed ited Result - Final Performing Organization Address City/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
--- OUTSIDE RECORDS SUMMARY | 2024-03-31 14:22 | XMS_ITS | Encounter Summary ---
Author Organization [facility] Healthcare Address [address] [place] [address] Care Team Providers Care Senior Computer Specialist Name Role Phone Jocelynn Coy Primary Care Provider +1- [phone] Encounter Details Date Type Department Care Team (Late st Contact Info) Description 01/10/2022 Telephone [facility] [address] [place] [address] Stefany Carroll, GEMA Social History Tobacco Use [...] on file Legal Sex Female 8:45 PM PULLMAN CLERK Gender Identity Female 04/25/2021 2:46 PM PULLMAN CLERK Sexual Orientation Straight 04/25/2021 2: 46 PM PULLMAN CLERK documented as of this encounter Miscellaneous Notes * Telephone Encounter - Stefany Carroll RN - 01/10/2022 11:27 AM CDT Called patient daughter Toyin Long (HIPPA) to scheduled and give pre- procedure instructions fora Fluoro Guided Lumbar Puncture. Patient scheduled January 17 at 0830 with a arrival time of 0800 in Medical Imaging, hold Aspirin 81mg five days before procedure and Toyin verbalized understanding to instructions. documented in this encounter Plan of Treatment Not on file documented as of this encounter Visit Diagnoses Not on filedocumented in this encounter Care Teams Senior Computer Specialist Relationship Specialty Start Date End Date Jocelynn Coy DO PCP - General Family Medicine 06/10/17 09/02/23 documented as of this encounter
--- OUTSIDE RECORDS SUMMARY | 2024-03-31 14:22 | XMS_ITS | Encounter Summary ---
Author Organization [facility] Healthcare Address [address] [place] [address] Care Team Providers Care Mate Fourth Name Role Phone Jocelynn Coy DO Primary Care Provider +1- [phone] Encounter Details Date Type Department Care Team (Late st Contact Info) Description 01/10/2021 9:15 AM CDT [address] Jocelynn Coy DO [address] [facility] [address] [place] [address] Berna Shabazz NP [address] [facility] [address] [place] [address] Type 2 diabetes mellitus with hyperglycemia, without long-term current use of insulin ([facility]) ([facility]) Discharge Disposition: Discharge to home or self [...] file Legal Sex Female 8:45 PM WIRE WEAVER HELPER Gender Identity Female 04/25/2021 2:46 PM WIRE WEAVER HELPER Sexual Orientation Straight 04/25/2021 2: 46 PM WIRE WEAVER HELPER documented as of this encounter Discharge Disposition Disposition Code Departure Means Destination Discharge to home or self care documented in this encounter Miscellaneous Notes * Result Encounter Note - Magdalene Iglesias MA - 01/12/2021 2:33 PM CDT LMOM for Toyin to call the office back as she called in. * Result Encounter Note - Berna Shabazz NP - 01/12/2021 12:29 PM CDT Hga1c is 7%, so that is a little improved from 7.3%. normal kidney function. F/u with Dr. Zbigniew Johnson. documented in this encounter Plan of Treatment Not on file documented as of this encounter Procedures Procedure Name Priority Date/Time Associated Diagnosis Comments EGFR Routine 01/10/2021 9:12 AM CDT Type 2 diabetes mellitus with hyperglycemia, without long-term current use of insulin ([facility]) ([facility]) HEMOGLOBIN A1C Routine 01/10/2021 9:12 AM CDT Type 2 diabetes mellitus with hyperglycemia, without long-term current use of insulin ([facility]) ([facility]) COMPREHENSIVE METABOLIC PANEL Routine 01/10/2021 9:12 AM CDT Type 2 diabetes mellitus with hyperglycemia, without long-term current use of insulin ([facility]) ([facility]) documented in this encounter Results * eGFR (01/10/2021 9:12 AM CDT) eGFR 86 mL/min/1.7 3 m2 JOSE MARCELINO ([place]ANE) Comment: Interpretive Data Reference Interval Normal ?>/= 90 mL/min/1.73m2 Mildly decreased* ? 60 - 89 mL/min/1.73m2 Mildly to moderately decreased ?45 - 59 mL/min/1.73m2 Moderately to severely decreased ??30 - 44 mL/min/1.73m2 Severely decreased ?15 - 29 mL/min/1.73m2 Kidney Failure ?< 15 ??mL/min/1.73m2 *Relative to young adult level Estimated glomerular filtration rate is determined by the CKD-EPI equation recommended by the National Kidney Foundation (KDIGO 2012 Clinical Practice Guideline for the Evaluation and Management of Chronic Kidney Disease. Kidney Intnl Suppl Apr 2012;3:1). The CKD-EPI equation should not be used for patients with unstable renal function and has not been validated in children and those over 70. Current interpretive data was last reviewed 2020 Blood 01/10/2021 9:12 AM CDT 01/10/2021 1:28 PM CDT Berna Shabazz NP LAB BLOOD ORDERABLES Final Resul t Performing Organization Address [facility] de Phone Number JOSE [facility] [address] [facility] Department [place] [address] * (ABNORMAL) Hemoglobin A1c (01/10/2021 9:12 AM CDT) [facility] Signature Hgb A1C 7.0(H) 4.0 - 5.6 % JOSE MARCELINO ([place]) Estimated Average Glucose 154 mg/dL JOSE [facility] Comment: The ADA recommends reporting an estimated Average Glucose (eAG) with all Hemoglobin A1c results using the equation derived from a study of 507 normal and diabetic adults. ??Minority populations were underrepresented and children were not included. ?? (Diabetes Care 31:6508-4614, 2008). ??The eAG is not equivalent to a fasting glucose. Blood 01/10/2021 9:12 AM CDT 01/10/2021 1:28 PM CDT us Berna Shabazz NP LAB BLOOD ORDERABLES Final Resul t Performing Organization Address [facility] Co de Phone Number JOSE [facility] ([place]) [address] [facility] Department [place] [address] * Comprehensive metabolic panel (01/10/2021 9:12 AM CDT) Sodium 139 135 - 145 mmol/L [facility] ([place]) Potassium, pl 4.5 3.3 - 4.9 mmol/L [facility] ([place]) Chloride 102 97 - 110 mmol/L [facility] ([place]) CO2 27 22 - 32 mmol/L [facility] ([place]) Anion gap 10 2 - 15 mmol/L [facility] ([place]) BUN 10 8 - 25 mg/dL [facility] [...] 45 Units/L [facility] ([place]) Blood 01/10/2021 9:12 AM CDT 01/10/2021 1:28 PM CDT us Berna Shabazz NP LAB BLOOD ORDERABLES Final Resul t [facility] ([place]) 1 [facility] Department [place] [address] documented in this encounter Visit Diagnoses Diagnosis Type 2 diabetes mellitus with hyperglycemia, without long-term current use of insulin (HCC) documented in this encounter Care Teams Mate Fourth Relationship Specialty Start Date End Date Jocelynn Coy DO PCP - General Family Medicine 06/10/17 09/02/23 documented as of this encounter
--- OUTSIDE RECORDS SUMMARY | 2024-03-31 14:22 | XMS_ITS | Encounter Summary ---
Author Organization [facility] Address [address] [place] [address] Care Team Providers Care Office Machines Sales Representative Name Role Phone Jocelynn Coy DO Primary Care Provider +1- [phone] Reason for Visit * Reason Onset Date Comments Constipation 11/04/2020 Encounter Details Date Type Department Care Team (Late st Contact Info) Description 11/04/2020 Telephone [facility] [address] [place] [address] Jocelynn Coy DO [address] [facility] [address] [address] Constipation Social History Tobacco Use Types Packs/Day Years Used Date Smoking Tobacco: Never Smokeless Tobacco: Never Alcohol Use Standard Drinks/Week Comments No 0 (1 standard drink = 0.6 oz pur e alcohol) PHQ-2 Answer Date Recorded PHQ-2 Total Score (If total score is 3 or more points, staff should administer the PHQ-9) 2 10/13/2020 Comments Unknown Sex and Gender Information Value Date Recorded Sex Assigned at Not on file Legal Sex Female 8:45 PM RIB STIFFENER AND HEEL DIPPER Gender Identity Female 04/25/2021 2:46 PM RIB STIFFENER AND HEEL DIPPER Sexual Orientation Straight 04/25/2021 2: 46 PM RIB STIFFENER AND HEEL DIPPER documented as of this encounter Miscellaneous Notes * Telephone Encounter - Jocelynn Coy DO - 11/29/2020 4:23 PM CDT noted * Addendum Note - Bill Ward MA - 11/29/2020 4:12 PM CDTAddended by: BILL WARD on: 11/29/2020 04:12 PM Modules accepted: Orders * Telephone Encounter - Bill Ward MA - 11/29/2020 4:07 PM CDT Patient is in agreement. Referral placed. * Telephone Encounter - Jocelynn Coy DO - 11/29/2020 2:50 PM CDT Let them know that a colonoscopy is still recommended, if she agrees, place referral to Dr. Esquivel Dx: screening colon cancer * Telephone Encounter - Bill Ward MA - 11/29/2020 2:08 PM CDT Got a hold of Toyin her daughter per HIPAA after a few calls and she states she has never had a colonoscopy. She said she will go get the docusate sodium and has been using the Miralax already. * Telephone Encounter - Bill Ward MA - 11/11/2020 3:25 PM CDT Left message for patient to call back. * Telephone Encounter - Delphine Key MA - 11/10/2020 1:22 PM CDT Attempted to contact patients daughter Toyin-ON HIPAA. Toyin did not answer, left message on machine to contact the office back. * Telephone Encounter - Bill Ward MA - 11/10/2020 1:14 PM CDT Left message for patient to call back. * Telephone Encounter - Jocelynn Coy DO - 11/07/2020 2:15 PM CDT Find out when was her last colonoscopy. In the meantime, she can add both Miralax, take daily as directed on the bottle and docusate calcium, 240 mg (1 capsule) take one to two times a day. Usually found at [facility] only. Can ask the pharmacy for help locating if she's unable to locate. * Telephone Encounter - Bill Ward MA - 11/04/2020 3:21 PM CDT Toyin her daughter called stating Annita has been constipated the last few weeks. She states she did take some magnesium titrate which helped but within the last week she has been complaining about this again. She is wanting to know what they should do or if there is something else they can have her take. documented in this encounter Plan of Treatment Not on file documented as of this encounter Visit Diagnoses Diagnosis Colon cancer screening- Primary Special screening for malignant neoplasms, colon documented in this encounter Care Teams Office Machines Sales Representative Relationship Specialty Start Date End Date Jocelynn Coy DO PCP - General Family Medicine 06/10/17 09/02/23 documented as of this encounter
--- OUTSIDE RECORDS SUMMARY | 2024-03-31 14:23 | XMS_ITS | Encounter Summary ---
Author Organization [facility] Care Team Providers Care Neurosurgical Nurse Name Role Phone Jocelynn Coy DO Primary Care Provider +1- [phone] Encounter Details Date Type Department Care Team (Latest Contact Info) Description 03/18/2019 Travel Social History Tobacco Use Types Packs/Day Years Used Date Smoking Tobacco: Never Smokeless Tobacco: Never Alcohol Use Standard Drinks/Week Comments No 0 (1 standard drink = 0.6 oz pur e alcohol) PHQ-2 Answer Date Recorded PHQ-2 Score 0 12/04/2018 Comments Unknown Sex and Gender Information Value Date Recorded Sex Assigned at Not on file Legal Sex Female 8:45 PM AIDS COUNSELOR Gender Identity Female 04/25/2021 2:46 PM AIDS COUNSELOR Sexual Orientation Straight 04/25/2021 2: 46 PM AIDS COUNSELOR documented as of this encounter Plan of Treatment Not on file documented as of this encounter Visit Diagnoses Not on filedocumented in this encounter Care Teams Neurosurgical Nurse Relationship Specialty Start Date End Date Jocelynn Coy DO PCP - General Family Medicine 06/10/17 09/02/23 documented as of this encounter
--- OUTSIDE RECORDS SUMMARY | 2024-03-31 14:23 | XMS_ITS | Encounter Summary ---
Author Organization [facility] Address [address] [place] [address] Care Team Providers Care Case Technician Name Role Phone Jocelynn Coy DO Primary Care Provider [phone]- [phone] Reason for Visit * Reason Comments COVID-19 EVALUATION C/o a dry cough, sor e throat, body aches, headaches, and fatigue. Sx started on 08/21/20. Encounter Details Date Type Department Care Team (Late st Contact Info) Description 08/22/2020 5:45 PM CDT Office Visit [facility] [address] [place] [address] [place] [address] Kristen Vilchis, NORMAN [address] [place] [address] Strep pharyngitis (Primary Dx); Cough Social History Tobacco Use Types Packs/Day Years Used Date Smoking Tobacco: Never Smokeless Tobacco: Never Tobacco Cessation:Counseling Given: No Alcohol Use Standard Drinks/Week Comments No 0 (1 standard drink = 0.6 oz pur e alcohol) PHQ-2 Answer Date Recorded PHQ-2 Total Score (If total score is 3 or more points, staff should administer the PHQ-9) 0 03/24/2020 Comments Unknown Sex and Gender Information Value Date Recorded Sex Assigned at Not on file Legal Sex Female 8:45 PM CIRCUIT BOARD REPAIR TECHNICIAN Gender Identity Female 04/25/2021 2:46 PM CIRCUIT BOARD REPAIR TECHNICIAN Sexual Orientation Straight 04/25/2021 2: 46 PM CIRCUIT BOARD REPAIR TECHNICIAN documented as of this encounter Last Filed Vital Signs Vital Sign Reading Time Taken Comments Blood Pressure 128/70 08/22/2020 5:39 PM CDT Pulse 72 08/22/2020 5:39 PM CDT Temperature 36.8 ??C (98.3 ??F) 08/22/2020 5:39 PM CD T Respiratory Rate - - Oxygen Saturation - - Inhaled Oxygen Concentration - - Weight 67.6 kg (149 lb) 08/22/2020 5:39 PM CDT Height 149.9 cm (4' 11 ) 08/22/2020 5:39 PM CDT Body Mass Index 30.09 08/22/2020 5:39 PM CDT documented in this encounter Patient Instructions * Patient Instructions* Kristen Vilchis NP - 08/22/2020 5:45 PM CDT Swabbed for COVID-19 today in clinic. Negative Advise retesting if symptoms develop Patient instructed to self isolate Discussed COVID testing reasoning Reviewed isolation/quarantine protocols Discussed symptomatic relief of symptoms Discussed need to return to ER for further evaluation including worsening fevers, shortness of breath, of other concerning symptoms Advised to rest and stay adequately hydrated Complete antibiotic as prescribed Tylenol or Motrin for fever/pain Gargle with warm salt water (1tsp salt/1 cup water) Suck on ice chips, popsicles, cough drops, or throat lozenges You may return to work, daycare, or school 24 hours after starting antibiotics and you are fever free Do not share food, drinks, or utensils Replace your toothbrush within 24 hours after starting antibiotics and again after 3-4 days. I recommend washing your pillow cases and sheets after 24 hours Follow up with your PCP if you are not getting better documented in this encounter Ordered Prescriptions Prescription Sig Dispense Quantity Refills Last Filled Start Date End Date amoxicillin (AMOXIL) 875 mg tabletIndications: Strep pharyngitis Take 1 tablet (875 mg total) by mouth 2 (two) times a day for 10 days 20 tablet 08/22/2020 09/01/2020 documented in this encounter Progress Notes * Kristen Vilchis NP - 08/22/2020 5:45 PM CDT Images from the original note were not included. Patient ID: Annita Bose is a 79 y.o. female followed by Jocelynn Coy DO Patient was wearing the following PPE: mask. MA was wearing the following PPE: mask, gown, gloves, goggles. Provider was wearing the following PPE: mask, gown, gloves, goggles Patient presents to clinic for assessment of Chief Complaint Patient presents with ??? COVID-19 EVALUATION C/o a dry cough, sore throat, body aches, headaches, and fatigue. Sx started on 08/21/20. . Patient with sick or suspected COVID-19 contacts: NO Patient has following risks for COVID-19: Patient age over 65 History reviewed. No pertinent past medical history. Current Outpatient Medications Medication Sig Dispense Refill ??? amLODIPine (NORVASC) 10 mg tablet TAKE 1 TABLET BY MOUTH EVERY DAY 90 tablet 0 ??? atorvastatin (LIPITOR) 20 mg tablet Take 1 tablet (20 mg total) by mouth daily 90 tablet 3 ??? LORazepam (ATIVAN) 0.5 mg tablet Take 1 tablet (0.5 mg total) by mouth 2 (two) times a day 60 tablet 5 No current facility-administered medications for this visit. Immunization History Administered Date(s) Administered ??? Influenza, Quadrivalent, High Dose, Preservative Free, Intrr 03/24/2020 ??? Influenza, Trivalent, High Dose, Split, Preservative Free, Intramuscular 03/14/2018, 03/18/2019 ??? Influenza, Unspecified 01/14/2016, 03/08/2017 ??? Pneumococcal Conjugate PCV 13 03/14/2018 ??? Pneumococcal Polysaccharide PPV23 02/06/2011 ??? Tdap 01/14/2016 ??? Tetanus Toxoid, Unspecified 02/06/2011 Social History Tobacco Use Smoking Status Never Smoker Smokeless Tobacco Never Used Vitals: 08/22/20 1739 BP: 128/70 Pulse: 72 Temp: 36.8 ??C (98.3 ??F) TempSrc: Temporal Weight: 67.6 kg (149 lb) Height: 149.9 cm (4' 11 ) Chief Complaint Patient presents with ??? COVID-19 EVALUATION C/o a dry cough, sore throat, body aches, headaches, and fatigue. Sx started on 08/21/20. HPI Review of Systems Constitutional: Positive for fatigue. Negative for chills and fever. HENT: Positive for sore throat. Respiratory: Positive for cough. Negative for shortness of breath. Gastrointestinal: Negative for nausea and vomiting. Musculoskeletal: Positive for myalgias. Neurological: Positive for headaches. Physical Exam Vitals reviewed. Constitutional: General: She is not in acute distress. Appearance: Normal appearance. She is well-developed. HENT: Head: Normocephalic. Right Ear: Hearing, tympanic membrane, ear canal and external ear normal. Left Ear: Hearing, tympanic membrane, ear canal and external ear normal. Nose: Right Sinus: No maxillary sinus tenderness or frontal sinus tenderness. Left Sinus: No maxillary sinus tenderness or frontal sinus tenderness. Mouth/Throat: Mouth: Mucous membranes are moist. Pharynx: Oropharynx is clear. Posterior oropharyngeal erythema present. Eyes: Conjunctiva/sclera: Conjunctivae normal. Cardiovascular: Rate and Rhythm: Normal rate and regular rhythm. Pulmonary: Effort: Pulmonary effort is normal. Breath sounds: Normal breath sounds and air entry. Musculoskeletal: General: Normal range of motion. Cervical back: Normal range of motion and neck supple. Lymphadenopathy: Cervical: No cervical adenopathy. Skin: General: Skin is warm and dry. Neurological: General: No focal deficit present. Mental Status: She is alert and oriented to person, place, and time. GCS: GCS eye subscore is 4. GCS verbal subscore is 5. GCS motor subscore is 6. Sensory: Sensation is intact. Gait: Gait is intact. Psychiatric: Speech: Speech normal. Behavior: Behavior normal. Assessment/Plan Swabbed for COVID-19 today in clinic. Negative Advise retesting if symptoms develop Patient instructed to self isolate Discussed COVID testing reasoning Reviewed isolation/quarantine protocols Discussed symptomatic relief of symptoms Discussed need to return to ER for further evaluation including worsening fevers, shortness of breath, of other concerning symptoms Advised to rest and stay adequately hydrated Complete antibiotic as prescribed Tylenol or Motrin for fever/pain Gargle with warm salt water (1tsp salt/1 cup water) Suck on ice chips, popsicles, cough drops, or throat lozenges You may return to work, daycare, or school 24 hours after starting antibiotics and you are fever free Do not share food, drinks, or utensils Replace your toothbrush within 24 hours after starting antibiotics and again after 3-4 days. I recommend washing your pillow cases and sheets after 24 hours Follow up with your PCP if you are not getting better Diagnoses and all orders for this visit: Cough (Primary) - COVID-19 POC - POCT rapid strep A Orders Placed This Encounter Procedures ??? COVID-19 POC Order Specific Question: Is the Patient experiencing symptoms consistent with COVID? Answer: Yes Order Specific Question: Date of Symptom Onset Answer: 08/21/2020 Order Specific Question: Is the patient hospitalized? Answer: No Order Specific Question: Is the patient admitted to an ICU? Answer: No Order Specific Question: Is this the first COVID-19 test for this patient? Answer: No Order Specific Question: Does the patient currently work in a healthcare facility with direct patient contact? Answer: No Order Specific Question: Is the patient a resident of a congregate care or living setting? Answer: No Order Specific Question: Is the patient ? Answer: No ??? POCT rapid strep A documented in this encounter Plan of Treatment Not on file documented as of this encounter Procedures Procedure Name Priority Date/Time Associated Diagnosis Comments COVID-19 POC Routine 08/22/2020 5:53 PM CDT Cough POCT RAPID STREP Routine 08/22/2020 5:52 PM CDT Cough documented in this encounter Results * COVID-19 POC (08/22/2020 5:53 PM CDT) COVID-19 Ag POC (BD Veritor) Presumptive Negative Presumptive Negative, Invalid SHARONKiya LARA Nasal 08/22/2020 5:53 PM CDT Kristen Vilchis NP POINT OF CARE TEST OR DERABLES Final Result [facility] [address] [place] [address] [place] [address] * (ABNORMAL) POCT rapid strep A (08/22/2020 5:52 PM CDT) Rapid Strep A, POC Positive Swab 08/22/2020 5:52 PM CDT Kristen Vilchis AVIATION NEUROPSYCHOLOGIST POINT OF CARE TEST OR DERABLES Final Result documented in this encounter Visit Diagnoses Diagnosis Strep pharyngitis- Primary Cough documented in this encounter Additional Health Concerns Infection Onset Date Last Indicated Resolved Time COVID: Suspected 08/22/2020 08/22/2020 08/22/2020 5:54 PM CDT documented as of this encounter Care Teams Case Technician Relationship Specialty Start Date End Date Jocelynn Coy DO PCP - General Family Medicine 06/10/17 09/02/23 documented as of this encounter
--- OUTSIDE RECORDS SUMMARY | 2024-03-31 14:23 | XMS_ITS | Encounter Summary ---
Author Organization [facility] Address [address] [facility] [facility] [address] [place] [address] Care Team Providers Care Family Court Counsellor Name Role Phone Jocelynn Coy DO Primary Care Provider [phone]- [phone] Reason for Visit * Reason Comments Medicare Annual Wellness Visit Subsequen t Encounter Details Date Type Department Care Team (Late st Contact Info) Description 03/14/2018 12:00 PM METAL MODEL MAKER Office Visit [facility] [address] [place] [id number] Jocelynn Coy DO [address] [place] [address] Medicare annual wellness visit, subsequent (Primary Dx); Essential hypertension; Pure hypercholesterolemia; Anxiety; Need for vaccination with 13-polyvalent pneumococcal conjugate vaccine; Flu vaccine need Social History Tobacco Use Types Packs/Day Years Used Date Smoking Tobacco: Never Smokeless Tobacco: Never Alcohol Use Standard Drinks/Week Comments No 0 (1 standard drink = 0.6 oz pur e alcohol) Comments Unknown Sex and Gender Information Value Date Recorded Sex Assigned at Not on file Legal Sex Female 8:45 PM METAL MODEL MAKER Gender Identity Female 04/25/2021 2:46 PM METAL MODEL MAKER Sexual Orientation Straight 04/25/2021 2: 46 PM METAL MODEL MAKER documented as of this encounter Last Filed Vital Signs Vital Sign Reading Time Taken Comments Blood Pressure 138/73 03/14/2018 12:20 PM METAL MODEL MAKER Pulse 75 03/14/2018 12:20 PM METAL MODEL MAKER Temperature 36.7 ??C (98 ??F) 03/14/2018 12:20 PM METAL MODEL MAKER Respiratory Rate 16 03/14/2018 12:20 PM METAL MODEL MAKER Oxygen Saturation 98% 03/14/2018 12:20 PM METAL MODEL MAKER Inhaled Oxygen Concentration - - Weight 68.7 kg (151 lb 6.4 oz) 03/14/2018 12:20 PM METAL MODEL MAKER Height 149.9 cm (4' 11 ) 03/14/2018 12:20 PM METAL MODEL MAKER Body Mass Index 30.58 03/14/2018 12:20 PM METAL MODEL MAKER documented in this encounter Patient Instructions * Patient Instructions* Jocelynn Coy, DO - 03/14/2018 12:33 PM METAL MODEL MAKER Images from the original note were not included. Patient Education Wellness Visit for Adults SSIS DEVELOPER: A wellness visit is when you see your healthcare provider to get screened for health problems. You can also get advice on how to stay healthy. Write [...] of viruses cause the flu. The viruses change attendant time, so new vaccines are made each [...] could distract you and cause an accident. cap coverer if you need to make a call [...] a boat or doing water sports. ?? 2016 [employer]. Information is for End User's use only and may not be sold, redistributed or otherwise used for commercial purposes. All illustrations and images included in CareNotes?? are the copyrighted property of [employer] or [employer]. The above information is an first aid instructor only. It is not intended as medical advice for individual conditions or treatments. Talk to your doctor, nurse or pharmacist before following any medical regimen to see if it is safe and effective for you. L MODEL MAKER L MODEL MAKER documented in this encounter Progress Notes * Jocelynn Coy DO - 03/14/2018 12:00 PM CST Images from the original note were not included. MEDICARE ADVANTAGE ANNUAL VISIT Patient Name: Annita Bose : 1940 Date of Service: 03/15/2018 Chief Complaint: Chief Complaint Patient presents with ??? Medicare Annual Wellness Visit Subsequent HPI: Annita Bose is a 77 y.o. female here today for annual wellness visit. Medical/Social History: No Known Allergies Outpatient Encounter Prescriptions as of 03/14/2018 Medication Sig Dispense Refill ??? amLODIPine (NORVASC) 10 mg tablet Take 1 tablet (10 mg total) by mouth daily. 90 tablet 3 ??? atorvastatin (LIPITOR) 20 mg tablet Take 1 tablet (20 mg total) by mouth daily. 90 tablet 3 ??? LORazepam (ATIVAN) 0.5 mg tablet Take 1 tablet (0.5 mg total) by mouth every 6 (six) hours as needed for anxiety. 30 tablet 5 No facility-administered encounter medications on file as of 03/14/2018. Patient Active Problem List Diagnosis ??? Essential hypertension ??? Pure hypercholesterolemia ??? Anxiety History reviewed. No pertinent past medical history. History reviewed. No pertinent surgical history. Family History Problem Relation Age of Onset ??? Stomach cancer Sister Immunization History Administered Date(s) Administered ??? Influenza, Trivalent, High Dose, Split, Preservative Free, Intramuscular 03/14/2018 ??? Influenza, Unspecified 01/14/2016, 03/08/2017 ??? Pneumococcal Conjugate 13-Valent (PREVNAR) 03/14/2018 ??? Pneumococcal Polysaccharide 23-Valent (PNEUMOVAX) 02/06/2011 ??? Tetanus Toxoid, Unspecified 02/06/2011 Social History Social History ??? Marital status: Spouse name: N/A ??? Number of children: N/A ??? Years of education: N/A Social History Main Topics ??? Smoking status: Never Smoker ??? Smokeless tobacco: Never Used ??? Alcohol use No ??? Drug use: No ??? Sexual activity: Not Asked Other Topics Concern ??? None Social History Narrative ??? None Diet: Regular Physical Activities: no routine daily exercise Vitals: Vitals: 03/14/18 1220 BP: 138/73 BP Location: Left arm Patient Position: Sitting Pulse: 75 Resp: 16 Temp: 36.7 ??C (98 ??F) SpO2: 98% Weight: 68.7 kg (151 lb 6.4 oz) Height: 149.9 cm (4' 11 ) Body mass index is 30.58 kg/m??. ROS: Constitutional: negative for chills and fevers Eyes: negative for redness Ears, nose, mouth, throat, and face: negative for earaches and sore throat Respiratory: negative for cough and dyspnea on exertion Cardiovascular: negative for chest pain and chest pressure/discomfort Gastrointestinal: negative for abdominal pain Genitourinary: negative for hematuria Integument/breast: negative for rash Hematologic/lymphatic: negative for bleeding Musculoskeletal: negative for arthralgias Neurological: negative for coordination problems Behavioral/Psych: positive for anxiety Endocrine: negative for cold intolerance and heat intolerance Allergic/Immunologic: negative for seasonal allergies All other review of systems is negative Physical Exam: General appearance: appears stated age and cooperative Head: Normocephalic, without obvious abnormality, atraumatic Eyes: conjunctivae/corneas clear. PERRL Ears: normal TM's and external ear canals both ears Nose: Nares normal. Septum midline. Mucosa normal. No drainage or sinus tenderness. Throat: lips, mucosa, and tongue normal; teeth and gums normal Neck: no adenopathy, supple, symmetrical, trachea midline and thyroid not enlarged, symmetric, no tenderness/mass/nodules Lungs: clear to auscultation bilaterally Heart: regular rate and rhythm, S1, S2 normal, no murmur, click, rub or gallop Abdomen: soft, non-tender; bowel sounds normal; no masses, no organomegaly Extremities: extremities normal, warm and well-perfused Pulses: 2+ and symmetric Skin: Skin color, texture, turgor normal. No rashes or lesions Lymph nodes: Cervical, supraclavicular, and axillary nodes normal. Neurologic: Alert and oriented x4, non-focal Lab Results Component Value Date CHOL 170 11/21/2017 Lab Results Component Value Date HDL 60 11/21/2017 Lab Results Component Value Date LDL 86 11/21/2017 Lab Results Component Value Date TRIG 141 11/21/2017 Chemistry Component Value Date/Time SODIUM 139 11/21/2017 1516 POTASSIUM 4.2 11/21/2017 1516 CHLORIDE 107 11/21/2017 1516 CO2 27 11/21/2017 1516 BUNSER 14 11/21/2017 1516 CREATININE 0.68 11/21/2017 1516 GLUCOSE 97 11/21/2017 1516 Component Value Date/Time CALCIUM 9.5 11/21/2017 1516 ALKPHOS 76 11/21/2017 1516 AST 15 11/21/2017 1516 ALT 13 11/21/2017 1516 BILITOT 0.3 11/21/2017 1516 Detection of Cognitive Impairment: Detect cognitive impairment based on direct observation, discussion with patient or family, or review of medical records? No STEADI Fall Risk Screening In the past year, patient experienced: One or more falls in the last year: No Was the patient's timed Get Up and Go test unsteady or longer than 30 seconds? No Health Maintenance: Health Maintenance Topics with due status: Overdue Topic Date Due Osteoporosis Screening-Bone Density Scan 1940 DTaP/Tdap/Td Vaccine 1952 Zoster Vaccines 2001 Health Maintenance Topics with due status: Not Due Topic Last Completion Date Fall Risk Assessment 03/14/2018 Depression Screening-PHQ 03/14/2018 Regular Well Visit/Exam 03/14/2018 Health Maintenance Topics with due status: Completed / Addressed / Aged Out Topic Last Completion Date Pneumococcal (PCV13 & PPSV23) 65+ yrs 03/14/2018 Influenza Vaccine 03/14/2018 Diabetes Eye Exam Results: Not Indicated Depression Screen: PHQ Screening Over the last 2 weeks, how often have you been bothered by any of the following problems? Little Interest or Pleasure in Doing Things: Not at all Feeling Down, Depressed, or Hopeless: Not at all PHQ-2 Total Score (If total score is 3 or more points, continue to PHQ-9): 0 Over the past 2 weeks, how often have you been bothered by any of the following problems? Little Interest or Pleasure in Doing Things: Not at all Feeling Down, Depressed, or Hopeless: Not at all Trouble Falling or Staying Asleep, or Sleeping too Much: Not at all Feeling Tired or Having Little Energy: Not at all Poor Appetite or Overeating: Not at all Feeling Bad About Yourself - or That You are a Failure or Have Let Yourself or Your Family Down: Not at all Trouble Concentrating on Things, Such as Reading the Newspaper or Watching Television: Not at all Moving or Speaking so Slowly That Other People Could Have Noticed, or the Opposite - Being so Fidgety or Restless That You Have Been Moving Around a lot More Than Usual: Not at all Thoughts That You Would be Better off , or of Hurting Yourself in Some Way: Not at all PHQ-9 Total Score: 0 PHQ Screening PHQ-2 Total Score (If total score is 3 or more points, continue to PHQ-9): 0 PHQ-9 Total Score: 0 Advanced Directive Durable Power of Automatic Spooler Operator: No Living Will: No Assessment/Plan Diagnoses and all orders for this visit: Medicare annual wellness visit, subsequent (Primary) Comments: Well exam, health maintenance updated. Essential hypertension Assessment & Plan: Hypertension is improving with treatment. Continue current treatment regimen. Dietary sodium restriction. Weight loss. Regular aerobic exercise. Continue current medications. Ambulatory blood pressure monitoring. Blood pressure will be reassessed at the next regular appointment. Amlodipine 10 mg qd Pure hypercholesterolemia Assessment & Plan: Lipid abnormalities are improving with treatment. Nutritional counseling was provided. and Pharmacotherapy as ordered. Lipids will be reassessed 4 months. Atorvastatin 20mg po qd Anxiety Assessment & Plan: Stable. Cont. Current meds. Lorazepam 0.5 mg q6 h prn Need for vaccination with 13-polyvalent pneumococcal conjugate vaccine - Pneumococcal conjugate vaccine 13-valent IM (Prevnar-13) Flu vaccine need - Flu Vaccine High Dose Tri PF 65y+ IM - Fluzone Please see patient instructions section for recommendations for appropriate screening and monitoring guidelines. Jocelynn Coy DO L MODEL MAKER documented in this encounter Miscellaneous Notes * Assessment & Plan Note - Jocelynn Coy DO - 03/14/2018 12:52 PM METAL MODEL MAKER Associated Problem(s): Generalized anxiety disorder Stable. Cont. Current meds. 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 Nutritional counseling was provided. and Pharmacotherapy as ordered. Lipids will be reassessed 4 months. Atorvastatin 20mg po qd L MODEL MAKER * Assessment & Plan Note - Jocelynn Coy DO - 03/14/2018 12:51 PM METAL MODEL MAKER Associated Problem(s): Hypertension associated with diabetes (HCC) Hypertension is improving with treatment. Continue current treatment regimen. Dietary sodium restriction. Weight loss. Regular aerobic exercise. Continue current medications. Ambulatory blood pressure monitoring. Blood pressure will be reassessed at the next regular appointment. Amlodipine 10 mg qd L MODEL MAKER documented in this encounter Plan of Treatment Not on file documented as of this encounter Visit Diagnoses Diagnosis Medicare annual wellness visit, subsequent- Primary Essential hypertension Unspecified essential hypertension Pure hypercholesterolemia Anxiety Anxiety state, unspecified Need for vaccination with 13-polyvalent pneumococcal conjugate vaccine Flu vaccine need documented in this encounter Orders Immunization/Injection Count Last Ordered Date First Ordered Date FLU VACCINE HD TRI PF 65Y+ IM 1 03/14/2018 PNEUMOCOCCAL CONJUGATE VACCI NE 13-VALENT IM 1 03/14/2018 documented in this encounter Care Teams Family Court Counsellor Relationship Specialty Start Date End Date Jocelynn Coy DO PCP - General Family Medicine 06/10/17 09/02/23 documented as of this encounter
--- OUTSIDE RECORDS SUMMARY | 2024-03-31 14:23 | XMS_ITS | Encounter Summary ---
Author Organization [facility] Medical Group Address [address] [facility] [address] [facility] [address] [place] [address] Care Team Providers Care Compliance Auditor Name Role Phone Jocelynn Coy DO Primary Care Provider +1- [phone] Encounter Details Date Type Department Care Team (Late st Contact Info) Description 09/28/2020 Orders Only [facility] of [address] [place] [address] Jocelynn Coy DO [address] [facility] [address] [id number] Elevated glucose (Primary Dx) Social History Tobacco Use Types Packs/Day Years Used Date Smoking Tobacco: Never Smokeless Tobacco: Never Alcohol Use Standard Drinks/Week Comments No 0 (1 standard drink = 0.6 oz pur e alcohol) PHQ-2 Answer Date Recorded PHQ-2 Total Score (If total score is 3 or more points, staff should administer the PHQ-9) 0 09/22/2020 Comments Unknown Sex and Gender Information Value Date Recorded Sex Assigned at Not on file Legal Sex Female 8:45 PM ELECTRICAL CONTRACTOR Gender Identity Female 04/25/2021 2:46 PM ELECTRICAL CONTRACTOR Sexual Orientation Straight 04/25/2021 2: 46 PM ELECTRICAL CONTRACTOR documented as of this encounter Plan of Treatment Not on file documented as of this encounter Results * (ABNORMAL) Hemoglobin A1c (10/01/2020 9:47 AM CDT) Hgb A1C 7.3(H) 4.0 - 5.6 % JOSE MARCELINO (JANE) Estimated Average Glucose 163 mg/dL JOSE MARCELINO (JANE) Comment: The ADA recommends reporting an estimated Average Glucose (eAG) with all Hemoglobin A1c results using the equation derived from a study of 507 normal and diabetic adults. ??Minority populations were underrepresented and children were not included. ?? (Diabetes Care 31:6417-9804, 2008). ??The eAG is not equivalent to a fasting glucose. Blood specimen (specimen) 10/01/2020 9:47 AM CDT 10/01/2020 10:34 AM CDT us Jocelynn Coy DO LAB BLOOD ORDERABLES Final Result JOSE MARCELINO (JANE) [address] [facility] [employer] [place] [address] * (ABNORMAL) Glucose, fasting (10/01/2020 9:47 AM CDT) Glucose, fasting 134(H) 70 - 99 mg/dL JOSE MARCELINO (JANE) Blood specimen (specimen) 10/01/2020 9:47 AM CDT 10/01/2020 10:34 AM CDT us Jocelynn Coy DO LAB BLOOD ORDERABLES Final Result PILARTOMMY CHARI (JANE) 1 [facility] [place] [address] documented in this encounter Visit Diagnoses Diagnosis Elevated glucose- Primary Other abnormal glucose documented in this encounter Care Teams Compliance Auditor Relationship Specialty Start Date End Date Jocelynn Coy DO PCP - General Family Medicine 06/10/17 09/02/23 documented as of this encounter
--- OUTSIDE RECORDS SUMMARY | 2024-03-31 14:23 | XMS_ITS | Encounter Summary ---
Author Organization [facility] Medical [facility] Address [address] [facility] [address] [place] [address] Care Team Providers Care Director Of Math Name Role Phone Jocelynn Coy DO Primary Care Provider +1- [phone] Reason for Visit * Reason Onset Date Comments Test Results 07/09/2019 Encounter Details Date Type Department Care Team (Late st Contact Info) Description 07/09/2019 Telephone [facility] [address] [place] [address] [place] [address] Bibiana Avalos MA Test Results Social History Tobacco Use Types Packs/Day Years Used Date Smoking Tobacco: Never Smokeless Tobacco: Never Alcohol Use Standard Drinks/Week Comments No 0 (1 standard drink = 0.6 oz pur e alcohol) PHQ-2 Answer Date Recorded PHQ-2 Score 0 12/04/2018 Comments Unknown Sex and Gender Information Value Date Recorded Sex Assigned at Not on file Legal Sex Female 8:45 PM COAT CUTTER Gender Identity Female 04/25/2021 2:46 PM COAT CUTTER Sexual Orientation Straight 04/25/2021 2: 46 PM COAT CUTTER COVID-19 Exposure Response Date Recorded In the last month, have you been in contact with someone who was confirmed or suspected to have Coronavirus / COVID-19? No / Unsure 07/08/2019 9:17 AM CDT documented as of this encounter Miscellaneous Notes * Telephone Encounter - Bibiana Avalos MA - 07/09/2019 12:03 PM CDT Annita has been informed of the results and will continue with treatment as suggested. She says thatthe abscess is almost gone. * Telephone Encounter - Bibiana Avalos MA - 07/09/2019 12:03 PM CDT ----- Message from Jacquelin Quinteros NP sent at 07/09/2019 10:47 AM CDT ----- Organism susceptible to clindamycin as prescribed, no change in treatment necessary. Please call patient to inquire if s/s are improving. If s/s have not improved or have worsened, she should call PCP for f/u. documented in this encounter Plan of Treatment Not on file documented as of this encounter Visit Diagnoses Not on filedocumented in this encounter Care Teams Director Of Math Relationship Specialty Start Date End Date Jocelynn Coy DO PCP - General Family Medicine 06/10/17 09/02/23 documented as of this encounter
--- OUTSIDE RECORDS SUMMARY | 2024-03-31 14:23 | XMS_ITS | Encounter Summary ---
Author Organization [facility] Medical Group Address [address] [facility] [address] [place] [address] Care Team Providers Care Bran Mixer Name Role Phone Jocelynn Coy DO Primary Care Provider +1- [phone] Reason for Visit * Reason Comments Hypertension 6mo f/u Encounter Details Date Type Department Care Team (Late st Contact Info) Description 09/22/2020 2:30 PM CDT Office Visit [facility] of [address] [place] [id number] Jocelynn Coy DO [address] [facility] [address] [address] Essential hypertension (Primary Dx); Pure hypercholesterolemia; Generalized anxiety disorder Social History Tobacco Use [...] on file Legal Sex Female 8:45 PM POSTAL SUPPORT EMPLOYEE Gender Identity Female 04/25/2021 2:46 PM POSTAL SUPPORT EMPLOYEE Sexual Orientation Straight 04/25/2021 2: 46 PM POSTAL SUPPORT EMPLOYEE documented as of this encounter Last Filed Vital Signs Vital Sign Reading Time Taken Comments Blood Pressure 131/68 09/22/2020 2:40 PM CDT Pulse 81 09/22/2020 2:40 PM CDT Temperature 36.6 ??C (97.8 ??F) 09/22/2020 2:40 PM CD T Respiratory Rate 16 09/22/2020 2:40 PM CDT Oxygen Saturation 95% 09/22/2020 2:40 PM CDT Inhaled Oxygen Concentration - - Weight 63.8 kg (140 lb 9.6 oz) 09/22/2020 2:40 P M CDT Height 149.9 cm (4' 11.02 ) 09/22/2020 2:40 PM C DT Body Mass Index 28.38 09/22/2020 2:40 PM CDT documented in this encounter Patient Instructions * Patient Instructions* Jocelynn Coy, DO - 09/22/2020 2:30 PM CDT Images from the original note were not included. Patient Education DASH Eating Plan OUTDOOR STUDIES PROFESSOR: The DASH (Dietary Approaches to Stop Hypertension) [...] your sodium limit. How to limit sodium: ?? Read food labels. Food labels can help you choose foods that are low in sodium. The amount of sodium is listed in milligrams (mg). The % Daily Value (DV) column tells you how much of your daily needs are met by 1 serving of the food for each nutrient listed. Choose foods that have less than 5% of the DV of sodium. These foods are considered low in sodium. Foods that have 20% or more of the DV of sodium are considered high in sodium. Avoid foods that have more than 300 mg of sodium in each serving. Choose foods that say low-sodium, reduced- sodium, or no salt added on the food label. ?? Avoid salt. Do not salt food at the table, and add very little salt to foods during cooking. Useherbs and spices, such as onions, garlic, and salt-free seasonings to add flavor to foods. Try lemon or [place] juice or vinegar to give foods a tart flavor. Use hot peppers or a small amount of hot pepper sauce to add a spicy flavor to foods. ?? Ask about salt substitutes. Ask your healthcare provider if you may use salt substitutes. Some salt substitutes have ingredients that can be harmful if you have certain health conditions. ?? Choose foods carefully at restaurants. Meals from restaurants, especially fast food restaurants,are often high in sodium. Some restaurants have nutrition information that tells you the amount of sodium in their foods. Ask to have your food prepared with less, or no salt. What you need to know about fats: ?? Include healthy fats. Examples are unsaturated fats and omega-3 fatty acids. Unsaturated fats are found in soybean, canola, olive, or sunflower oil, and liquid and soft tub margarines. Aristes-3 fatty acids are found in fatty fish, such as salmon, tuna, mackerel, and sardines. It is also found in flaxseed oil and ground flaxseed. ?? Avoid unhealthy fats. Do not eat unhealthy fats, such as saturated fats and trans fats. Saturated fats are found in foods that contain fat from animals. Examples are fatty meats, whole milk, butter, cream, and other dairy foods. It is also found in shortening, stick margarine, palm oil, and coconut oil. Trans fats are found in fried foods, [...] who need about 2,000 calories each day. ?? Grains: 6 to 8 servings (3 of these servings should be whole-grain foods) ?? 1 slice of whole-grain bread ?? 1 ounce of dry cereal ? cup of cooked cereal, pasta, or brown rice ?? Vegetables and fruits: 4 to 5 servings of fruits and 4 to 5 servings of vegetables ?? 1 medium fruit ? cup of frozen, canned (no added salt), or chopped fresh vegetables ? cup of fresh, frozen, dried, or canned fruit (canned in light syrup or fruit juice) ? cup of vegetable or fruit juice ?? Dairy: 2 to 3 servings ?? 1 cup of nonfat (skim) or 1% milk ?? 1?? ounces of fat-free or low-fat cheese ?? 6 ounces of nonfat or low-fat yogurt ?? Lean meat, poultry, and fish: 6 ounces or less ?? Poultry (chicken, turkey) with no skin ?? Fish (especially fatty fish, such as salmon, fresh tuna, or mackerel) ?? Lean beef and pork (loin, round, extra lean hamburger) ?? Egg whites and egg substitutes ?? Nuts, seeds, and legumes: 4 to 5 servings each week ? cup of cooked beans and peas ?? 1?? ounces of unsalted nuts ?? 2 tablespoons of peanut butter or seeds ?? Sweets and added sugars: 5 or less each week ?? 1 tablespoon of sugar, jelly, or jam ? cup of sorbet or gelatin ?? 1 cup of lemonade ?? Fats: 2 to 3 servings each week ?? 1 teaspoon of soft margarine or vegetable oil ?? 1 tablespoon of mayonnaise ?? 2 tablespoons of salad dressing Foods to avoid: ?? Grains: ?? Baked goods, such as doughnuts, pastries, cookies, and biscuits (high in fat and sugar) ?? Mixes for cornbread and biscuits, packaged foods, such as bread stuffing, rice and pasta mixes, macaroni and cheese, and instant cereals (high in sodium) ?? Fruits and vegetables: ?? Regular, canned vegetables (high in sodium) ?? Sauerkraut, pickled vegetables, and other foods prepared in brine (high in sodium) ?? Fried vegetables or vegetables in butter or high-fat sauces ?? Fruit in cream or butter sauce (high in fat) ?? Dairy: ?? Whole milk, 2% milk, and cream (high in fat) ?? Regular cheese and processed cheese (high in fat and sodium) ?? Meats and protein foods: ?? Smoked or cured meat, such as corned beef, mojica, ham, hot dogs, and sausage (high in fat and sodium) ?? Canned beans and canned meats or spreads, such as potted meats, sardines, anchovies, and imitation seafood (high in sodium) ?? Deli or lunch meats, such as bologna, ham, turkey, and roast beef (high in sodium) ?? High-fat meat (T-bone steak, regular hamburger, and ribs) ?? Whole eggs and egg yolks (high in fat) ?? Other: ?? Seasonings made with salt, such as garlic salt, celery salt, onion salt, seasoned salt, meat tenderizers, and monosodium glutamate (MSG) ?? Miso soup and canned or dried soup mixes (high in sodium) ?? Regular soy sauce, barbecue sauce, teriyaki sauce, steak sauce, Worcestershire sauce, and most flavored vinegars (high in sodium) ?? Regular condiments, such as mustard, ketchup, and salad dressings (high in sodium) ?? Gravy and sauces, such as Fer or cheese sauces (high in sodium and fat) ?? Drinks high in sugar, such as soda or fruit drinks ?? Snack foods, such as salted chips, popcorn, pretzels, pork rinds, salted crackers, and salted nuts ?? Frozen foods, such as dinners, entrees, vegetables with sauces, and breaded meats (high in sodium) Other guidelines to follow: ?? Maintain a healthy weight. Your risk for heart disease is higher if you are overweight. Your healthcare provider may suggest that you lose weight if you are overweight. You can lose weight by eating fewer calories and foods that have added sugars and fat. The DASH meal plan can help you do this.Decrease calories by eating smaller portions at each meal and fewer snacks. Ask your healthcare provider for more information about how to lose weight. ?? Exercise regularly. Regular exercise can help you reach or maintain a healthy weight. Regular exercise can also help decrease your blood pressure and improve your cholesterol levels. Get 30 minutes or more of moderate exercise each day of the week. To lose weight, get at least 60 minutes of exercise. Talk to your healthcare provider about the best exercise program for you. ?? Limit alcohol. Women should limit alcohol to 1 drink a day. Men should limit alcohol to 2 drinksa day. A drink of alcohol is 12 ounces of beer, 5 ounces of wine, or 1?? ounces of liquor. ?? 2017 [employer] Information is for End User's use only and may not be sold, redistributed or otherwise used for commercial purposes. All illustrations and images included in CareNotes?? are the copyrighted property of [employer]. or [employer]. The above information is an recreation therapy aides teacher only. It is not intended as medical advice for individual conditions or treatments. Talk to your doctor, nurse or pharmacist before following any medical regimen to see if it is safe and effective for you. The patient has no Health Maintenance topics of status Overdue, Due On, or Due Soon Thanks for coming in today! My medical assistants and I are thankful you have trusted us with your care, and hope that you received EXCELLENT care today! Please do not hesitate to call if you have any questions or concerns at [phone]. You may receive a phone call, text, MYCHART message, or e-mail asking about your care today. We would love to hear your feedback on how EXCELLENT your care wastoday! Wishing you better health, always. Dr. Coy documented in this encounter Ordered Prescriptions Prescription Sig Dispense Quantity Refills Last Filled Start Date End Date amLODIPine (NORVASC) 10 mg tabletIndications: Essential hypertension Take 1 tablet (10 mg total) by mouth daily 90 tablet 3 09/22/2020 10/06/2021 LORazepam (ATIVAN) 0.5 mg tabletIndications: Generalized anxiety disorder Take 1 tablet (0.5 mg total) by mouth 2 (two) times a day 60 tablet 5 09/22/2020 03/30/2021 documented in this encounter Progress Notes * Jocelynn Coy, - 09/22/2020 2:30 PM CDT Images from the original note were not included. Subjective/Objective Patient ID: Annita Bose is a 80 y.o. female. Chief Complaint Chief Complaint Patient presents with ??? Hypertension 6mo f/u HPI Patient RTC today for routine f/u on chronic medical conditions. Patient is without complaints. Shecontinues to do well after the loss of her . Hypertension This is a chronic problem. The current episode started more than 1 year ago. The problem has been waxing and waning since onset. The problem is controlled. Associated symptoms include anxiety. Pertinent negatives include no chest pain, headaches, palpitations or shortness of breath. Risk factors for coronary artery disease include sedentary lifestyle, post-menopausal state and obesity. Past treatments include calcium channel blockers. The current treatment provides no improvement. Compliance problems include exercise. Hyperlipidemia This is a chronic problem. The current episode started more than 1 year ago. The problem is controlled. Recent lipid tests were reviewed and are normal. Pertinent negatives include no chest pain, myalgias or shortness of breath. Current antihyperlipidemic treatment includes statins. The current treatment provides mild improvement of lipids. Compliance problems include adherence to exercise. Risk factors for coronary artery disease include hypertension, a sedentary lifestyle, post-menopausal andobesity. Anxiety Presents for follow-up visit. Symptoms include nervous/anxious behavior. Patient reports no chest pain, depressed mood, dizziness, palpitations, panic, shortness of breath or suicidal ideas. Symptomsoccur rarely. The severity of symptoms is mild. The quality of sleep is good. Nighttime awakenings:occasional. Compliance with medications is 76-100%. Vitals: 09/22/20 1440 BP: 131/68 BP Location: Left arm Patient Position: Sitting Pulse: 81 Resp: 16 Temp: 36.6 ??C (97.8 ??F) TempSrc: Temporal SpO2: 95% Weight: 63.8 kg (140 lb 9.6 oz) Height: 149.9 cm (4' 11.02 ) Body mass index is 28.38 kg/m??. Review of Systems Constitutional: Negative for fatigue and fever. HENT: Negative for congestion and sore throat. Eyes: Negative for visual disturbance. Respiratory: Negative for cough, chest tightness and shortness of breath. Cardiovascular: Negative for chest pain, palpitations and leg swelling. Gastrointestinal: Negative for abdominal pain. Genitourinary: Negative for hematuria. Musculoskeletal: Negative for myalgias. Skin: Negative for rash. Neurological: Negative for dizziness, speech difficulty, light-headedness and headaches. Psychiatric/Behavioral: Negative for dysphoric mood, self-injury and suicidal ideas. The patient isnervous/anxious. All other systems reviewed and are negative. Physical Exam Vitals and nursing note reviewed. Constitutional: Appearance: She is well-developed. She is obese. HENT: Head: Normocephalic and atraumatic. Eyes: General: [...] Normal range of motion and neck supple. Right [...] 141 11/21/2017 Chemistry Component Value Date/Time SODIUM 140 09/26/2020 1254 SODIUM 139 11/21/2017 1516 POTASSIUM 3.9 09/26/2020 1254 POTASSIUM 4.2 11/21/2017 1516 CHLORIDE 104 09/26/2020 1254 CHLORIDE 107 11/21/2017 1516 CO2 27 09/26/2020 1254 CO2 27 11/21/2017 1516 BUNSER 13 09/26/2020 1254 BUNSER 14 11/21/2017 1516 CREATININE 0.72 09/26/2020 1254 CREATININE 0.68 11/21/2017 1516 GLUCOSE 210 (H) 09/26/2020 1254 GLUCOSE 97 11/21/2017 1516 Component Value Date/Time CALCIUM 9.3 09/26/2020 1254 CALCIUM 9.5 11/21/2017 1516 ALKPHOS 71 09/26/2020 1254 ALKPHOS 76 11/21/2017 1516 AST 23 09/26/2020 1254 AST 15 11/21/2017 1516 ALT 15 09/26/2020 1254 ALT 13 11/21/2017 1516 BILITOT 0.3 09/26/2020 1254 BILITOT 0.3 11/21/2017 1516 Lab Results Component Value Date WBC 5.8 03/24/2020 HGB 13.2 03/24/2020 HCT 42.4 03/24/2020 MCV 85.5 03/24/2020 LABPLAT 271 03/24/2020 Diagnoses and all orders for this visit: Essential hypertension (Primary) Assessment & Plan: BP at goal of < 150/90. Cont current meds. Orders: - Comprehensive metabolic panel; Future - Lipid panel; Future - amLODIPine (NORVASC) 10 mg tablet; Take 1 tablet (10 mg total) by mouth daily Pure hypercholesterolemia Assessment & Plan: Clinically improved, continue current meds. Orders: - Comprehensive metabolic panel; Future - Lipid panel; Future Generalized anxiety disorder Assessment & Plan: Stable. Cont. Current meds. Orders: - LORazepam (ATIVAN) 0.5 mg tablet; Take 1 tablet (0.5 mg total) by mouth 2 (two) times a day Jocelynn Coy DO documented in this encounter Miscellaneous Notes * Assessment & Plan Note - Jocelynn Coy DO - 09/28/2020 7:07 AM CDT Associated Problem(s): Generalized anxiety disorder Stable. Cont. Current meds. 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 * Assessment & Plan Note - Jocelynn Coy DO - 09/28/2020 7:06 AM CDT Associated Problem(s): Hypertension associated with diabetes (HCC) BP at goal of < 150/90. Cont current meds. documented in this encounter Plan of Treatment Not on file documented as of this encounter Results * Lipid panel (09/26/2020 12:54 PM CDT) [facility] Cholesterol 121 30 - 199 mg/dL JOSE MARCELINO (JANE) [...] Data was last revised on 2017. Triglycerides 92 <=149 mg/dL JOSE MARCELINO (JANE) Comment: Interpretive [...] Data was last revised on 2017. HDL 60 >=40 mg/dL JOSE Clarke (JANE) Comment: Interpretive [...] was last revised on 2017. LDL, calculated 43 <=129 mg/dL JOSE MARCELINO (LEO) Comment: Interpretive Data Ages < or = [...] was last revised on 2017. Non-HDL Cholesterol 61 mg/dL JOSE MARCELINO (LEO) Comment: Interpretive Data Ages < or = [...] on 2017. Chol/HDL ratio 2 YUKI MARCELINO (LEO) Blood specimen (specimen) 09/26/2020 12:54 PM CDT 09/26/2020 12:54 PM CDT us Jocelynn Coy DO LAB BLOOD ORDERABLES Final Result JOSE MARCELINO (LEO) [address] [facility] Department [place] [address] * (ABNORMAL) Comprehensive metabolic panel (09/26/2020 12:54 PM CDT) Sodium 140 135 - 145 mmol/L [facility] (JANE) Potassium, pl 3.9 3.3 - 4.9 mmol/L [facility] (JANE) Chloride 104 97 - 110 mmol/L [facility] (JANE) CO2 27 22 - 32 mmol/L [facility] (JANE) Anion gap 9 2 - 15 mmol/L [facility] (JANE) BUN 13 8 - 25 mg/dL [facility] (JANE) Creatinine 0.72 0.60 - 1.10 mg/dL [facility] (JANE) Glucose 210(H) 70 - 199 mg/dL [facility] (JANE) [...] 1.2 mg/dL [facility] (JANE) Protein, pl 6.7 6.5 - 8.5 g/dL [facility] (JANE) Albumin 3.3(L) 3.5 - 5.0 g/dL [facility] (JANE) Alk phos 71 40 - 130 Units/L [facility] (JANE) ALT 15 7 - 45 Units/L [facility] (JANE) AST 23 10 - 45 Units/L [facility] (JANE) Comment: Hemolysis present. ??Results may be affected. Slightly Hemolyzed Specimen Blood specimen (specimen) 09/26/2020 12:54 PM CDT 09/26/2020 12:54 PM CDT Jocelynn Coy DO LAB BLOOD ORDERABLES Final Result [facility] (LEO) [address] [facility] Department [place] [address] documented in this encounter Visit Diagnoses Diagnosis Essential hypertension- Primary Unspecified essential hypertension Pure hypercholesterolemia Generalized anxiety disorder documented in this encounter Discontinued Medications Medication Sig Discontinue Reason Start Date End Da te LORazepam (ATIVAN) 0.5 mg tabletIndications:General ized anxiety disorder Take 1 tablet (0.5 mg total) by mouth 2 (two) times a day Reorder 03/24/2020 09/22/2020 amLODIPine (NORVASC) 10 mg tabletIndications:Essenti al hypertension TAKE 1 TABLET BY MOUTH EVERY DAY Reorder 08/19/2020 09/22/2020 documented as of this encounter Care Teams Bran Mixer Relationship Specialty Start Date End Date Jocelynn Coy DO PCP - General Family Medicine 06/10/17 09/02/23 documented as of this encounter
--- OUTSIDE RECORDS SUMMARY | 2024-03-31 14:23 | XMS_ITS | Encounter Summary ---
Author Organization [facility] Care Team Providers Care Consulting Sales Executive Name Role Phone Jocelynn Coy DO Primary Care Provider +1- [phone] Encounter Details Date Type Department Care Team (Latest Contact Info) Description 09/03/2018 Travel Social History Tobacco Use Types Packs/Day Years Used Date Smoking Tobacco: Never Smokeless Tobacco: Never Alcohol Use Standard Drinks/Week Comments No 0 (1 standard drink = 0.6 oz pur e alcohol) Comments Unknown Sex and Gender Information Value Date Recorded Sex Assigned at Not on file Legal Sex Female 8:45 PM HOME ORGANIZER Gender Identity Female 04/25/2021 2:46 PM HOME ORGANIZER Sexual Orientation Straight 04/25/2021 2: 46 PM HOME ORGANIZER documented as of this encounter Plan of Treatment Not on file documented as of this encounter Visit Diagnoses Not on filedocumented in this encounter Care Teams Consulting Sales Executive Relationship Specialty Start Date End Date Jocelynn Coy DO PCP - General Family Medicine 06/10/17 09/02/23 documented as of this encounter
--- OUTSIDE RECORDS SUMMARY | 2024-03-31 14:23 | XMS_ITS | Encounter Summary ---
Author Organization [facility] Address [address] [place] [address] Care Team Providers Care Studio Producer Name Role Phone Jocelynn Coy DO Primary Care Provider [phone]- [phone] Reason for Visit * Reason Comments Hypertension f/u Hyperlipidemia Anxiety Encounter Details Date Type Department Care Team (Late st Contact Info) Description 07/22/2019 11:00 AM CDT [facility]icine [facility] [address] [place] [id number] Jocelynn Coy DO [address] [place] [address] Essential hypertension (Primary Dx); Pure hypercholesterolemia; Generalized anxiety disorder; BMI 28.0-28.9,adult Social History Tobacco Use Types Packs/Day Years Used Date Smoking Tobacco: Never Smokeless Tobacco: Never Alcohol Use Standard Drinks/Week Comments No 0 (1 standard drink = 0.6 oz pur e alcohol) PHQ-2 Answer Date Recorded PHQ-2 Score 0 12/04/2018 Comments Unknown Sex and Gender Information Value Date Recorded Sex Assigned at Not on file Legal Sex 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 No / Unsure 07/08/2019 9:17 AM CDT documented as of this encounter Last Filed Vital Signs Vital Sign Reading Time Taken Comments Blood Pressure 128/68 07/22/2019 10:46 AM CDT Pulse - - Temperature - - Respiratory Rate - - Oxygen Saturation - - Inhaled Oxygen Concentration - - Weight 63 kg (139 lb) 07/22/2019 10:46 AM CDT Height 149.9 cm (4' 11 ) 07/22/2019 10:46 AM CDT Body Mass Index 28.07 07/22/2019 10:46 AM CDT documented in this encounter Ordered Prescriptions Prescription Sig Dispense Quantity Refills Last Filled Start Date End Date LORazepam (ATIVAN) 0.5 mg tabletIndications: Generalized anxiety disorder Take 1 tablet (0.5 mg total) by mouth 2 (two) times a day as needed for anxiety 60 tablet 5 08/21/2019 0 amLODIPine (NORVASC) 10 mg tabletIndications: Essential hypertension Take 1 tablet (10 mg total) by mouth daily 90 tablet 3 07/22/2019 1 documented in this encounter Progress Notes * Jocelynn Coy, - 07/22/2019 11:00 AM CDT Images from the original note were not included. This was a telemedicine visit with Annita Bose which took place via Telephone. During the visit, I was located [place] and the patient was located [place] The session started at 1103 hrs and ended at 1109hrs. The patient has been informed that the visit may not be secure and acknowledged the information. I have explained the option of participating in a telephone or video visit during the COVID-19 public health emergency to the patient. After being given an opportunity to ask questions about and discuss this type of visit, the patient verbally consented to proceeding with the telephone / video visit. The patient understands that this service replaces an office visit and they may be billed and/or responsible for any applicable copayments. Patient ID: Annita Bose is a 78 y.o. female. Assessment/Plan Diagnoses and all orders for this visit: Essential hypertension (Primary) Assessment & Plan: Clinically improved, continue current meds. Orders: - amLODIPine (NORVASC) 10 mg tablet; Take 1 tablet (10 mg total) by mouth daily Pure hypercholesterolemia Assessment & Plan: Stable. Cont. Current meds. Generalized anxiety disorder Assessment & Plan: Clinically improved, continue current meds. Orders: - LORazepam (ATIVAN) 0.5 mg tablet; Take 1 tablet (0.5 mg total) by mouth 2 (two) times a day as needed for anxiety BMI 28.0-28.9,adult Follow up 4 months Chief Complaint Subjective/Objective Hypertension (f/u); Hyperlipidemia; and Anxiety Patient is following up on her chronic conditions. She is without complaints. Hypertension This is a chronic problem. The current episode started more than 1 year ago. The problem has been gradually improving since onset. Associated symptoms include anxiety. Pertinent negatives include no chest pain, headaches, palpitations or shortness of breath. Risk factors for coronary artery diseaseinclude post- menopausal state and sedentary lifestyle. Past treatments include calcium channel blockers. The current treatment provides mild improvement. Compliance problems include exercise. Hyperlipidemia This is a chronic problem. The current episode started more than 1 year ago. The problem is controlled. Recent lipid tests were reviewed and are normal. Pertinent negatives include no chest pain or shortness of breath. Current antihyperlipidemic treatment includes statins. Compliance problems include adherence to exercise. Risk factors for coronary artery disease include a sedentary lifestyle, post-menopausal and hypertension. Anxiety Presents for follow-up visit. Symptoms include nervous/anxious behavior. Patient reports no chest pain, confusion, dizziness, irritability, palpitations or shortness of breath. Symptoms occur occasionally. The severity of symptoms is mild. The quality of sleep is good. Nighttime awakenings: occasional. Compliance with medications is 76-100%. Review of Systems Constitutional: Negative for fatigue and irritability. Respiratory: Negative for chest tightness and shortness of breath. Cardiovascular: Negative for chest pain and palpitations. Gastrointestinal: Negative for abdominal pain. Neurological: Negative for dizziness, speech difficulty, light-headedness and headaches. Psychiatric/Behavioral: Negative for confusion and dysphoric mood. The patient is nervous/anxious. All other systems reviewed and are negative. BP 128/68 (BP Location: Left arm, Patient Position: Sitting) Ht 149.9 cm (4' 11 ) Wt 63 kg (139lb) BMI 28.07 kg/m?? Ht Readings from Last 3 Encounters: 07/22/19 149.9 cm (4' 11 ) 07/16/19 149.9 cm (4' 11 ) 07/05/19 149.9 cm (4' 11 ) Wt Readings from Last 3 Encounters: 07/22/19 63 kg (139 lb) 07/16/19 67.8 kg (149 lb 6.4 oz) 07/05/19 67.7 kg (149 lb 4.8 oz) Temp Readings from Last 3 Encounters: 07/16/19 36.8 ??C (98.3 ??F) (Oral) 07/05/19 36.6 ??C (97.8 ??F) (Oral) 03/18/19 36.6 ??C (97.8 ??F) BP Readings from Last 3 Encounters: 07/22/19 128/68 07/16/19 132/66 07/05/19 132/64 Pulse Readings from Last 3 Encounters: 07/16/19 70 07/05/19 75 03/18/19 61 BP Readings from Last 3 Encounters: 07/22/19 128/68 07/16/19 132/66 07/05/19 132/64 Physical Exam Deferred as this is a telehealth visit today Lab Results Component Value Date CHOL 170 [...] 13 11/21/2017 1516 BILITOT 0.3 11/21/2017 1516 Lab Results Component Value Date WBC 6.0 11/21/2017 HGB 13.2 11/21/2017 HCT 40.7 11/21/2017 MCV 80.8 11/21/2017 LABPLAT 263 11/21/2017 Bushra Wilkinson documented in this encounter Miscellaneous Notes * Assessment & Plan Note - Jocelynn Coy DO - 07/26/2019 8:22 PM CDT Associated Problem(s): Generalized anxiety disorder Clinically improved, continue current meds. 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 Cont. Current meds. * Assessment & Plan Note - Jocelynn Coy DO - 07/26/2019 8:21 PM CDT Associated Problem(s): Hypertension associated with diabetes (HCC) Clinically improved, continue current meds. documented in this encounter Plan of Treatment Not on file documented as of this encounter Visit Diagnoses Diagnosis Essential hypertension- Primary Unspecified essential hypertension Pure hypercholesterolemia Generalized anxiety disorder BMI 28.0-28.9,adult documented in this encounter Discontinued Medications Medication Sig Discontinue Reason Start Date End Da te mupirocin (BACTROBAN) 2 % ointmentIndications:Absc ess Apply topically 3 (three) times a day Patient Discharge 07/16/2019 07/22/2019 tobramycin-dexAMETHasone (TOBRADEX) ophthalmic solution Patient Discharge 05/02/2019 07/22/2019 amLODIPine (NORVASC) 10 mg tabletIndications:Essent ial hypertension Take 1 tablet (10 mg total) by mouth daily Reorder 08/06/2018 07/22/2019 LORazepam (ATIVAN) 0.5 mg tabletIndications:Genera lized anxiety disorder Take 1 tablet (0.5 mg total) by mouth 2 (two) times a day as needed for anxiety Reorder 03/18/2019 07/22/2019 documented as of this encounter Care Teams Studio Producer Relationship Specialty Start Date End Date Jocelynn Coy DO PCP - General Family Medicine 06/10/17 09/02/23 documented as of this encounter
--- OUTSIDE RECORDS SUMMARY | 2024-03-31 14:23 | XMS_ITS | Encounter Summary ---
Author Organization [facility] Healthcare Address [address] [place] [address] Care Team Providers Care Freight Broker Name Role Phone Jocelynn Coy DO Primary Care Provider +1- [phone] Encounter Details Date Type Department Care Team (Late st Contact Info) Description 10/13/2020 4:25 PM CDT [address] [phone] Jocelynn Coy DO [address] [facility] [address] [id number] Type 2 diabetes mellitus with hyperglycemia, without long-term current use of insulin ([facility]) Discharge Disposition: Discharge to home [...] on file Legal Sex 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 Gender Identity Female 04/25/2021 2:46 PM ADVERTISING TEACHER Sexual Orientation Straight 04/25/2021 2: 46 PM ADVERTISING TEACHER documented as of this encounter Discharge Disposition Disposition Code Departure Means Destination Discharge to home or self care documented in this encounter Plan of Treatment Not on file documented as of this encounter Procedures Procedure Name Priority Date/Time Associated Diagnosis Comments ALBUMIN CREATININE RATIO, URINE Routine 10/13/2020 4:22 PM CDT Type 2 diabetes mellitus with hyperglycemia, without long-term current use of insulin ([facility]) documented in this encounter Results * Albumin Creatinine Ratio, Urine (10/13/2020 4:22 PM CDT) Albumin Ur <12.0 mg/L JOSE FINE H (JANE) Comment: Interpretive Data No reference range established. Current interpretive data was last revised 2018. Testing performed by: [facility], [address] [place] [address]., [id number] Creatinine Ur 157.7 mg/dL JOSE MARCELINO (JANE) Comment: Interpretive Data No reference range established. Current interpretive data was last revised 2018. Testing performed by: [address] [address] Albumin Creatinine Ratio, Ur <8 1 - 29 mg/g JOSE MARCELINO (JANE) Comment:Testing performed by : [facility], [address] [place] [address]., [id number] Urine 10/13/2020 4:22 PM CDT 10/14/2020 9:43 AM CDT us Jocelynn Coy DO LAB URINE ORDERABLES Final Result JOSE MARCELINO ([place]ANE) 1 [facility] Department [place] [address] documented in this encounter Visit Diagnoses Diagnosis Type 2 diabetes mellitus with hyperglycemia, without long-term current use of insulin ([facility]) documented in this encounter Care Teams Freight Broker Relationship Specialty Start Date End Date Jocelynn Coy DO PCP - General Family Medicine 06/10/17 09/02/23 documented as of this encounter
--- OUTSIDE RECORDS SUMMARY | 2024-03-31 14:23 | XMS_ITS | Encounter Summary ---
Author Organization [facility] Healthcare Address [address] [place] [address] Care Team Providers Care Post Office Markup Clerk Name Role Phone Jocelynn Coy DO Primary Care Provider +1- [phone] Encounter Details Date Type Department Care Team (Late st Contact Info) Description 10/01/2020 9:45 AM CDT Lab [address] [phone] Jocelynn Coy DO [address] [facility] [address] [address] Elevated glucose Discharge Disposition: Discharge to home or self [...] on file Legal Sex Female 8:45 PM TSA SCREENER Gender Identity Female 04/25/2021 2:46 PM TSA SCREENER Sexual Orientation Straight 04/25/2021 2: 46 PM TSA SCREENER documented as of this encounter Discharge Disposition Disposition Code Departure Means Destination Discharge to home or self care documented in this encounter Miscellaneous Notes * Result Encounter Note - Jocelynn Coy DO - 10/03/2020 4:49 PM CDT noted documented in this encounter Plan of Treatment Not on file documented as of this encounter Procedures Procedure Name Priority Date/Time Associated Diagnosis Comments HEMOGLOBIN A1C Routine 10/01/2020 9:47 AM CDT Elevated glucose GLUCOSE, FASTING Routine 10/01/2020 9:47 AM CDT Elevated glucose documented in this encounter Results * (ABNORMAL) [...] children were not included. ?? (Diabetes Care 31:9435-8554, 2008). ??The eAG is not equivalent to a fasting glucose. Blood specimen (specimen) 10/01/2020 9:47 AM CDT 10/01/2020 10:34 AM CDT us Jocelynn Coy DO LAB BLOOD ORDERABLES Final Result JOSE MARCELINO (JANE) 1 [facility] Department [place] [address] * (ABNORMAL) Glucose, fasting (10/01/2020 9:47 AM CDT) Glucose, fasting 134(H) 70 - 99 mg/dL JOSE MARCELINO ([place]) Blood specimen (specimen) 10/01/2020 9:47 AM CDT 10/01/2020 10:34 AM CDT us Jocelynn Coy DO LAB BLOOD ORDERABLES Final Result JOSE MARCELINO ([place]) [address] [facility] Department [place] [address] documented in this encounter Visit Diagnoses Diagnosis Elevated glucose Other abnormal glucose documented in this encounter Care Teams Post Office Markup Clerk Relationship Specialty Start Date End Date Jocelynn Coy DO PCP - General Family Medicine 06/10/17 09/02/23 documented as of this encounter
--- OUTSIDE RECORDS SUMMARY | 2024-03-31 14:23 | XMS_ITS | Encounter Summary ---
Author Organization [facility] Address [address] [place] [address] Care Team Providers Care Canteen Manager Name Role Phone Jocelynn Coy DO Primary Care Provider [phone] Reason for Visit * Reason Comments Hypertension f/u Anxiety Encounter Details Date Type Department Care Team (Late st Contact Info) Description 12/01/2019 11:00 AM CDT Office Visit [facility] [address] [place] [phone] Jocelynn Coy DO [address] [address] Essential hypertension (Primary Dx); Pure hypercholesterolemia; Generalized anxiety disorder; Class 1 obesity due to excess calories with serious comorbidity and body mass index (BMI) of 30.0 to 30.9 in adult Social History Tobacco Use Types Packs/Day Years Used Date Smoking Tobacco: Never Smokeless Tobacco: Never Alcohol Use Standard Drinks/Week Comments No 0 (1 standard drink = 0.6 oz pur e alcohol) PHQ-2 Answer Date Recorded PHQ-2 Score 0 12/04/2018 Comments Unknown Sex and Gender Information Value Date Recorded Sex Assigned at Not on file Legal Sex Female 8:45 PM MOLD FINISHER Gender Identity Female 04/25/2021 2:46 PM MOLD FINISHER Sexual Orientation Straight 04/25/2021 2: 46 PM MOLD FINISHER documented as of this encounter Last Filed Vital Signs Vital Sign Reading Time Taken Comments Blood Pressure 129/72 12/01/2019 10:58 AM CDT Pulse 68 12/01/2019 10:58 AM CDT Temperature 35.8 ??C (96.4 ??F) 12/01/2019 10:58 AM C DT Respiratory Rate 14 12/01/2019 10:58 AM CDT Oxygen Saturation 98% 12/01/2019 10:58 AM CDT Inhaled Oxygen Concentration - - Weight 67.6 kg (149 lb 1.6 oz) 12/01/2019 10:58 AM CDT Height 149.9 cm (4' 11 ) 12/01/2019 10:58 AM CDT Body Mass Index 30.11 12/01/2019 10:58 AM CDT documented in this encounter Patient Instructions * Patient Instructions* Jocelynn Coy, DO - 12/01/2019 11:00 AM CDT Images from the original note were not included. Patient Education Chronic Hypertension HOUSING QUALITY STANDARD INSPECTOR: Hypertension is high blood pressure (BP). Your BP is the force of your blood moving against the phipps of your arteries. Normal BP is less than 120/80. Prehypertension is between 120/80 and 139/89. Hypertension is 140/90 or higher. Hypertension causes your BP to get so high that your heart has to work much harder than normal. This can damage your heart. Chronic hypertension is a long- term condition that you can control with a healthy lifestyle or medicines. A controlled blood pressure helps protect your organs, such as your heart, lungs, brain, and kidneys. Common symptoms include the following: ?? Headache ?? Blurred vision ?? Chest pain ?? Dizziness or weakness ?? Trouble breathing ?? Nosebleeds Call 911 for any of the following: ?? You have discomfort in your chest that feels like squeezing, pressure, fullness, or pain. ?? You become confused or have difficulty speaking. ?? You suddenly feel lightheaded or have trouble breathing. ?? You have pain or discomfort in your back, neck, jaw, stomach, or arm. Seek care immediately if: ?? You have a severe headache or vision loss. ?? You have weakness in an arm or leg. Contact your healthcare provider if: ?? You feel faint, dizzy, confused, or drowsy. ?? You have been taking your BP medicine and your BP is still higher than your healthcare provider says it should be. ?? You have questions or concerns about your condition or care. Treatment for chronic hypertension may include medicine to lower your BP and lower your cholesterollevel. A low cholesterol level helps prevent heart disease and makes it easier to control your blood pressure. Heart disease can make your blood pressure harder to control. You may also need to make lifestyle changes. Take your medicine exactly as directed. Manage chronic hypertension: Talk with your healthcare provider about these and other ways to manage hypertension: ?? Take your BP at home. Sit and rest for 5 minutes before you take your BP. Extend your arm and support it on a flat surface. Your arm should be at the same level as your heart. Follow the directions that came with your BP monitor. If possible, take at least 2 BP readings each time. Take your BP at least twice a day at the same times each day, such as morning and evening. Keep a record of your BP readings and bring it to your follow-up visits. Ask your healthcare provider what your blood pressure should be. ?? Limit sodium (salt) as directed. Too much sodium can affect your fluid balance. Check labels to find low-sodium or np-eyop-qumka foods. Some low-sodium foods use potassium salts for flavor. Too much potassium can also cause health problems. Your healthcare provider will tell you how much sodium and potassium are safe for you to have in a day. He or she may recommend that you limit sodium to 2,300 mg a day. ?? Follow the meal plan recommended by your healthcare provider. A dietitian or your provider can give you more information on low-sodium plans or the DASH (Dietary Approaches to Stop Hypertension) eating plan. The DASH plan is low in sodium, unhealthy fats, and total fat. It is high in potassium, calcium, and fiber. ?? Exercise to maintain a healthy weight. Exercise at least 30 minutes per day, on most days of theweek. This will help decrease your blood pressure. Ask about the best exercise plan for you. ?? Decrease stress. This may help lower your BP. Learn ways to relax, such as deep breathing or listening to music. ?? Limit alcohol. Women should limit alcohol to 1 drink a day. Men should limit alcohol to 2 drinksa day. A drink of alcohol is 12 ounces of beer, 5 ounces of wine, or 1?? ounces of liquor. ?? Do not smoke. Nicotine and other chemicals in cigarettes and cigars can increase your BP and also cause lung damage. Ask your healthcare provider for information if you currently smoke and need help to quit. E-cigarettes or smokeless tobacco still contain nicotine. Talk to your healthcare provider before you use these products. Follow up with your healthcare provider as directed: You will need to return to have your BP checked and to have other lab tests done. Write down your questions so you remember to ask them during your visits. ?? 2017 [employer] Information is for End User's use only and may not be sold, redistributed or otherwise used for commercial purposes. All illustrations and images included in CareNotes?? are the copyrighted property of [employer]. or [employer]. The above information is an range aid only. It is not intended as medical advice for individual conditions or treatments. Talk to your doctor, nurse or pharmacist before following any medical regimen to see if it is safe and effective for you. documented in this encounter Progress Notes * Jocelynn Coy DO - 12/01/2019 11:00 AM CDT Images from the original note were not included. Subjective/Objective Patient ID: Annita Bose is a 79 y.o. female. Chief Complaint Chief Complaint Patient presents with ??? Hypertension f/u ??? Anxiety HPI Patient RTC today for routine f/u on chronic medical conditions. Annita Bose denies any medication side-effects. She is here with a female family member today. She is without complaints. She is doing much better since her past a year ago. Hypertension This is a chronic problem. The current episode started more than 1 year ago. The problem is unchanged. The problem is controlled. Associated symptoms include [...] factors for coronary artery disease include hypertension, asedentary lifestyle, post-menopausal and obesity. Anxiety Presents for follow-up visit. Symptoms include nervous/anxious behavior. Patient reports no chest pain, palpitations, panic, shortness of breath or suicidal ideas. Symptoms occur rarely. The severityof symptoms is mild. The quality of sleep is good. Nighttime awakenings: occasional. Compliance with medications is 76-100%. Vitals: 12/01/19 1058 BP: 129/72 BP Location: Left arm Patient Position: Sitting Pulse: 68 Resp: 14 Temp: (!) 35.8 ??C (96.4 ??F) SpO2: 98% Weight: 67.6 kg (149 lb 1.6 oz) Height: 149.9 cm (4' 11 ) Body mass index is 30.11 kg/m??. Review of Systems Constitutional: Negative for fever. Eyes: Negative for visual disturbance. Respiratory: Negative for cough, chest tightness and shortness of breath. Cardiovascular: Negative for chest pain, palpitations and leg swelling. Gastrointestinal: Negative for abdominal pain. Genitourinary: Negative for hematuria. Musculoskeletal: Negative for myalgias. Skin: Negative for rash. Neurological: Negative for headaches. Psychiatric/Behavioral: Negative for suicidal ideas. The patient is nervous/anxious. All other systems reviewed and are negative. Physical Exam Vitals signs and nursing note reviewed. Constitutional: Appearance: She is well-developed. She is obese. HENT: Head: Normocephalic and atraumatic. Eyes: General: No scleral icterus. Extraocular Movements: Extraocular movements intact. Conjunctiva/sclera: Conjunctivae normal. Neck: Musculoskeletal: Normal range of motion and neck supple. Thyroid: No thyromegaly. Cardiovascular: Rate and Rhythm: Normal rate and regular rhythm. Heart sounds: Normal heart sounds. No murmur. Pulmonary: Effort: Pulmonary effort is normal. Breath sounds: Normal breath sounds. No wheezing. Abdominal: General: Bowel sounds are normal. Palpations: Abdomen is soft. Tenderness: There is no abdominal tenderness. Musculoskeletal: Right lower leg: No edema. Left lower leg: No edema. Skin: General: Skin is warm and dry. Findings: No erythema or rash. Neurological: General: No focal deficit present. Mental Status: She is alert and oriented to person, place, and time. Psychiatric: Mood and Affect: Mood normal. Behavior: Behavior normal. Thought Content: Thought content normal. Lab Results Component Value Date CHOL 170 [...] 11/21/2017 MCV 80.8 11/21/2017 LABPLAT 263 11/21/2017 Diagnoses and all orders for this visit: Essential hypertension (Primary) Assessment & Plan: Stable. Cont. Current meds. Pure hypercholesterolemia Assessment & Plan: Stable. Cont. Current meds. Generalized anxiety disorder Assessment & Plan: Clinically improved, continue current meds. Class 1 obesity due to excess calories with serious comorbidity and body mass index (BMI) of 30.0 to 30.9 in adult Assessment & Plan: Weight reduction, daily exercise and dietary modifications recommended. Jocelynn Coy DO documented in this encounter Miscellaneous Notes * Assessment & Plan Note - Jocelynn Coy DO - 12/04/2019 9:33 AM CDT Associated Problem(s): BMI 26.0-26.9,adult Weight reduction, daily exercise and dietary modifications recommended. * Assessment & Plan Note - Jocelynn Coy DO - 12/04/2019 9:33 AM CDT Associated Problem(s): Generalized anxiety disorder Clinically improved, continue current meds. 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 Cont. Current meds. * Assessment & Plan Note - Jocelynn Coy DO - 12/04/2019 9:33 AM CDT Associated Problem(s): Hypertension associated with diabetes (HCC) Stable. Cont. Current meds. documented in this encounter Plan of Treatment Not on file documented as of this encounter Visit Diagnoses Diagnosis Essential hypertension- Primary Unspecified essential hypertension Pure hypercholesterolemia Generalized anxiety disorder Class 1 obesity due to excess calories with serious comorbidity and body mass index (BMI) of 30.0 to 30.9 in adult documented in this encounter Care Teams Canteen Manager Relationship Specialty Start Date End Date Jocelynn Coy DO PCP - General Family Medicine 06/10/17 09/02/23 documented as of this encounter
--- OUTSIDE RECORDS SUMMARY | 2024-03-31 14:23 | XMS_ITS | Encounter Summary ---
Author Organization [facility] Address [address] [place] [id number] Care Team Providers Care Doughnut Dough Mixer Name Role Phone Jocelynn Coy Primary Care Provider [phone] Reason for Referral * Procedure (Routine) - Closed Specialty Diagnoses / Procedures Referred By Jamaal chiang Referred To Contact Diagnoses Abscess Procedures Incision and Drainage Jacquelin Quinteros NP Phone: tel: fax: [facility] Referral ID Status Reason Start Date Expiration Date Visits Re quested Visits Authorized [id number] Closed 07/05/2019 01/13/2021 1 1 Reason for Visit * Reason Comments Boils Patient has a boil o n the left side of her neck that she has had for several months and within the last month it has really gotten bigger. She applied PRID on it on Saturday and now it is draining. It is very aggitated and red. Encounter Details Date Type Department Care Team (Late st Contact Info) Description 07/05/2019 6:15 PM CDT Office Visit [facility] [address] [place] [phone] Jacquelin Quinteros NP [address] [place] [address] Abscess (Primary Dx) Social History Tobacco Use Types Packs/Day Years Used Date Smoking Tobacco: Never Smokeless Tobacco: Never Alcohol Use Standard Drinks/Week Comments No 0 (1 standard drink = 0.6 oz pur e alcohol) PHQ-2 Answer Date Recorded PHQ-2 Score 0 12/04/2018 Comments Unknown Sex and Gender Information Value Date Recorded Sex Assigned at Not on file Legal Sex Female 8:45 PM GARMENT TAG STRINGER Gender Identity Female 04/25/2021 2:46 PM GARMENT TAG STRINGER Sexual Orientation Straight 04/25/2021 2: 46 PM GARMENT TAG STRINGER COVID-19 Exposure Response Date Recorded In the last month, have you been in contact with someone who was confirmed or suspected to have Coronavirus / COVID-19? No / Unsure 07/05/2019 6:14 PM CDT documented as of this encounter Last Filed Vital Signs Vital Sign Reading Time Taken Comments Blood Pressure 132/64 07/05/2019 6:41 PM CDT Pulse 75 07/05/2019 6:41 PM CDT Temperature 36.6 ??C (97.8 ??F) 07/05/2019 6:41 PM CD T Respiratory Rate 20 07/05/2019 6:41 PM CDT Oxygen Saturation 99% 07/05/2019 6:41 PM CDT Inhaled Oxygen Concentration - - Weight 67.7 kg (149 lb 4.8 oz) 07/05/2019 6:41 P M CDT Height 149.9 cm (4' 11 ) 07/05/2019 6:41 PM CDT Body Mass Index 30.15 07/05/2019 6:41 PM CDT documented in this encounter Patient Instructions * Patient Instructions* Jacquelin Quinteros NP - 07/05/2019 6:15 PM CDT Care of Abscess ??? Finish the entire antibiotic prescription. Eat yogurt or take probiotic daily while taking the antibiotic. ??? Take ibuprofen (800 mg 3 times daily) or naproxen twice daily to help with inflammation and pain. ??? Apply warm compresses to the area 4-5x per day for 20 minutes each time. ??? Monitor for and seek treatment in the Emergency Department if you have signs of worsening infection including increased fever or red streaking from the site, increased redness, warmth, pain, swelling, or discharge to site. ??? To prevent future abscess/boils: for 1-2 weeks, wash entire body (and fingernails, using fingernail brush) daily with povidone-iodine(Betadine), chlorhexidine (Hibiclens) or PhisoHex; OR take a bleach bath 2 times weekly for 3 weeks (1/4 cup of bleach in 1/4 tub of warm water; wash body thoroughly, avoiding the eyes) ??? Change towels, wash cloths, and sheets daily for 1-3 weeks. ??? Clean or replace any shaving instruments ??? Avoid picking your nose as bacteria from your nose can be spread to other parts of your body See Jocelynn Coy, DO or return to the [facility] if the area does not drain spontaneously in the next 3-5 days or sooner if a fever starts or if the lesion gets worse for possible I&D if needed. documented in this encounter Ordered Prescriptions Prescription Sig Dispense Quantity Refills Last Filled Start Date End Date sulfamethoxazole-t rimethoprim (Bactrim DS) 800-160 mg per tablet Take 1 tablet by mouth 2 (two) times a day for 10 days 20 tablet 07/05/2019 07/15/2019 documented in this encounter Progress Notes * Jacquelin Quinteros NP - 07/05/2019 6:15 PM CDTAssociated Order(s): Incision and Drainage Post-Procedure Diagnose(s): Abscess Images from the original note were not included. Subjective/Objective Patient ID: Annita Bose is a 78 y.o. female. Chief Complaint Boils (Patient has a boil on the left side of her neck that she has had for several months and within the last month it has really gotten bigger. She applied PRID on it on Saturday and now it is draining. It is very aggitated and red. ) Presents to [facility] with c/o boil to left neck, onset several months ago. She reports that over the past 4 weeks, area has increased in size and become tender to touch. She reports it has been increasingly red and a black head appeared prior to white drainage oozing from site. She denies fever/chills. Review of Systems Constitutional: Negative. Respiratory: Negative. Cardiovascular: Negative. Skin: Positive for wound (L neck). Physical Exam Neck: Incision and Drainage Date/Time: 07/05/2019 7:10 PM Performed by: Jacquelin Quinteros NP Authorized by: Jacquelin Quinteros NP Consent Given by: Patient Verbal consent obtained: Yes Written consent obtained: Yes Risks, alternatives, and patient questions discussed: Yes Type: Abscess Body area: Neck Anesthesia: Local infiltration Local anesthetic: Lidocaine 1% without epinephrine Scalpel size: 11 Incision type: Single straight Incision depth: Subcutaneous Complexity: Simple Drainage: Purulent Drainage amount: Moderate Drainage amount (ml): 15 Wound treatment: Wound left open Packing material: /4 in iodoform gauze Patient tolerance: Patient tolerated the procedure well with no immediate complications Cleansed with betadine prior to procedure. Vitals: 07/05/19 1841 BP: 132/64 BP Location: Left arm Patient Position: Sitting Pulse: 75 Resp: 20 Temp: 36.6 ??C (97.8 ??F) TempSrc: Oral SpO2: 99% Weight: 67.7 kg (149 lb 4.8 oz) Height: 149.9 cm (4' 11 ) Assessment/Plan Diagnoses and all orders for this visit: Abscess (Primary) - Aerobic and anaerobic culture and gram stain Abscess Neck, left; Future Other orders - sulfamethoxazole-trimethoprim (Bactrim DS) 800-160 mg per tablet; Take 1 tablet by mouth 2 (two) times a day for 10 days - Incision and Drainage Patient Education: Care of Abscess ??? Finish the entire antibiotic prescription. Eat yogurt or take probiotic daily while taking the antibiotic. ??? Take ibuprofen (800 mg 3 times daily) or naproxen twice daily to help with inflammation and pain. ??? Apply warm compresses to the area 4-5x per day for 20 minutes each time. ??? Monitor for and seek treatment in the Emergency Department if you have signs of worsening infection including increased fever or red streaking from the site, increased redness, warmth, pain, swelling, or discharge to site. ??? To prevent future abscess/boils: for 1-2 weeks, wash entire body (and fingernails, using fingernail brush) daily with povidone-iodine(Betadine), chlorhexidine (Hibiclens) or PhisoHex; OR take a bleach bath 2 times weekly for 3 weeks (1/4 cup of bleach in 1/4 tub of warm water; wash body thoroughly, avoiding the eyes) ??? Change towels, wash cloths, and sheets daily for 1-3 weeks. ??? Clean or replace any shaving instruments ??? Avoid picking your nose as bacteria from your nose can be spread to other parts of your body See Jocelynn Coy, DO or return to the [facility] if the area does not drain spontaneously in the next 3-5 days or sooner if a fever starts or if the lesion gets worse for possible I&D if needed. Disposition ??? Treatment plan including expectations, follow up, and return precautions discussed with patient/parent, verbalizes understanding. ??? Medication dosage, use, and potential adverse reactions discussed with patient/parent. ??? Advised to follow up with PCP if symptoms do not resolve as expected or sooner if condition worsens. ??? Signs/symptoms warranting ER evaluation reviewed. Jacquelin Quinteros NP documented in this encounter Miscellaneous Notes * Result Encounter Note - Bibiana Avalos MA - 07/09/2019 12:00 PM CDT Annita has been informed of the results and will continue with treatment as suggested. She says thatthe abscess is almost gone. * Result Encounter Note - Jacquelin Quinteros NP - 07/09/2019 10:47 AM CDT Organism susceptible to clindamycin as prescribed, no [...] AND ANAEROBIC CULTURE AND GRAM STAIN Routine 07/05/2019 7:05 PM CDT INCISION AND DRAINAGE Routine 07/05/2019 6:15 PM CDT Abscess documented in this encounter Results * (ABNORMAL) Aerobic and anaerobic culture and gram stain Abscess Neck, left (07/05/2019 7:05 PM CDT) Direct Specimen Exam Stain: Few polymorphonuclear leukocytes seen. Rare Gram Positive Cocci Slide reviewed and direct smear was updated. JOSE Comment:Testing performed by : [facility], [address] [place]., [address] Report Final Report: Moderate Staphylococcus lugdunensis (.) JOSE Comment:Testing performed by : [facility], [address] [place]., [address] Organism STAPHYLOCOCCUS LUGDUNENSIS JOSE Abscess (Neck, left) 07/05/2019 7:05 PM CDT 07/06/2019 12:06 AM CDT Narrative JOSE - 07/09/2019 11:57 AM CDT Testing performed by [facility] ([phone]) Specimens submitted from normally sterile body sites [...] interpretive data was last revised on 2019. Organism Antibiotic Method Susceptibility Staphylococcus lugdunensis Vancomycin INTERPRETATION Susceptible Staphylococcus lugdunensis Trimethoprim with Sulfamethoxazole INTERPRETATION Susceptible Staphylococcus lugdunensis Linezolid INTERPRETATION Susceptible Staphylococcus lugdunensis Doxycycline INTERPRETATION Susceptible Staphylococcus lugdunensis Clindamycin INTERPRETATION Susceptible Staphylococcus lugdunensis Erythromycin INTERPRETATION Susceptible Staphylococcus lugdunensis Oxacillin INTERPRETATION Susceptible Staphylococcus lugdunensis Cefazolin INTERPRETATION Susceptible Staphylococcus lugdunensis Ceftriaxone INTERPRETATION Susceptible us Jacquelin Quinteros NP LAB MICROBIOLOGY - GENER AL ORDERABLES Final Result JOSE WORKMAN [id number] [facility] [place] [address] * Incision and Drainage (07/05/2019 6:15 PM CDT) Jacquelin Ray NP - 07/05/2019 6:15 PM CDT Jacquelin Quinteros NP ? 07/05/2019 ??7:12 PM Incision and Drainage Date/Time: 07/05/2019 7:10 PM Performed by: Jacquelin Quinteros NP Authorized by: Jacquelin Quinteros NP Consent Given by: ??Patient Verbal consent obtained: Yes ?? Written consent obtained: Yes ?? Risks, alternatives, and patient questions discussed: Yes ?? Type: ??Abscess Body area: ??Neck Anesthesia: ??Local infiltration Local anesthetic: ??Lidocaine 1% without epinephrine Scalpel size: ??11 Incision type: ??Single straight Incision depth: ??Subcutaneous Complexity: ??Simple Drainage: ??Purulent Drainage amount: ??Moderate Drainage amount (ml): ??15 Wound treatment: ??Wound left open Packing material: ??1/4 in iodoform gauze Patient tolerance: ??Patient tolerated the procedure well with no immediate complications Cleansed with betadine prior to procedure. us Jacquelin Quinteros [facility]/BEDSIDE ORDERA BLES Final Result documented in this encounter Visit Diagnoses Diagnosis Abscess- Primary Cellulitis and abscess of unspecified site documented in this encounter Historical Medications * This list may reflect changes made after this encounter. Medication Sig Dispense Quantity Refills Last Filled Start D ate End Date tobramycin-dexAMETHas one (TOBRADEX) ophthalmic solution 05/02/201907/21 added in this encounter Care Teams Doughnut Dough Mixer Relationship Specialty Start Date End Date Jocelynn Coy DO PCP - General Family Medicine 06/10/17 09/02/23 documented as of this encounter
--- OUTSIDE RECORDS SUMMARY | 2024-03-31 14:23 | XMS_ITS | Encounter Summary ---
Author Organization [facility] Facility Care Team Providers Care Leadite Man Name Role Phone Jocelynn Coy DO Primary Care Provider +1- [phone] Encounter Details Date Type Department Care Team (Latest Contact Info) Description 07/05/2019 Travel Social History Tobacco Use Types Packs/Day Years Used Date Smoking Tobacco: Never Smokeless Tobacco: Never Alcohol Use Standard Drinks/Week Comments No 0 (1 standard drink = 0.6 oz pur e alcohol) PHQ-2 Answer Date Recorded PHQ-2 Score 0 12/04/2018 Comments Unknown Sex and Gender Information Value Date Recorded Sex Assigned at Not on file Legal Sex Female 8:45 PM SLEEPER CUTTER Gender Identity Female 04/25/2021 2:46 PM SLEEPER CUTTER Sexual Orientation Straight 04/25/2021 2: 46 PM SLEEPER CUTTER COVID-19 Exposure Response Date Recorded In the last month, have you been in contact with someone who was confirmed or suspected to have Coronavirus / COVID-19? No / Unsure 07/05/2019 6:14 PM CDT documented as of this encounter Plan of Treatment Not on file documented as of this encounter Visit Diagnoses Not on filedocumented in this encounter Care Teams Leadite Man Relationship Specialty Start Date End Date Jocelynn Coy DO PCP - General Family Medicine 06/10/17 09/02/23 documented as of this encounter
--- OUTSIDE RECORDS SUMMARY | 2024-03-31 14:23 | XMS_ITS | Encounter Summary ---
Author Organization [facility] Healthcare Address [address] [place] [address] Care Team Providers Care Farmworker Turkey Farm Name Role Phone Jocelynn Coy DO Primary Care Provider +1- [phone] Encounter Details Date Type Department Care Team (Late st Contact Info) Description 09/26/2020 11:40 AM CDT [address] [address] Jocelynn Coy DO [address] [facility] [address] [id number] Essential hypertension; Pure hypercholesterolemia Discharge Disposition: Discharge to home or self [...] on file Legal Sex Female 8:45 PM CLASSIFIED AD TAKER Gender Identity Female 04/25/2021 2:46 PM CLASSIFIED AD TAKER Sexual Orientation Straight 04/25/2021 2: 46 PM CLASSIFIED AD TAKER documented as of this encounter Discharge Disposition Disposition Code Departure Means Destination Discharge to home or self care documented in this encounter Miscellaneous Notes * Result Encounter Note - Jocelynn Coy DO - 09/30/2020 4:21 PM CDT noted * Result Encounter Note - Magdalene Iglesias MA - 09/30/2020 3:34 PM CDT I called and spoke with the patients grand daughter Viviana on [place] and informed her of the resultsshe stated that she will have the patient go over to the lab tomorrow. * Result Encounter Note - Jocelynn Cyo DO - 09/29/2020 5:29 PM CDT OK please try to reach her before the weekend. * Result Encounter Note - Magdalene Iglesias MA - 09/29/2020 10:22 AM CDT Attempted to contact Annita with no answer. LMOM to contact the office back. documented in this encounter Plan of Treatment Not on file documented as of this encounter Procedures Procedure Name Priority Date/Time Associated Diagnosis Comments EGFR Routine 09/26/2020 12:54 PM CDT Essential hypertension Pure hypercholesterolemia LIPID PANEL Routine 09/26/2020 12:54 PM CDT Essential hypertension Pure hypercholesterolemia COMPREHENSIVE METABOLIC PANEL Routine 09/26/2020 12:54 PM CDT Essential hypertension Pure hypercholesterolemia documented in this encounter Results * eGFR (09/26/2020 12:54 PM CDT) [facility] eGFR 80 mL/min/1.7 3 m2 JOSE MARCELINO ([place]) Comment: [...] interpretive data was last reviewed 2020 Blood specimen (specimen) 09/26/2020 12:54 PM CDT 09/26/2020 12:54 PM CDT us Jocelynn Coy DO LAB BLOOD ORDERABLES Final Result Performing Organization Address City/State/[facility] Co de Phone Number JOSE MARCELINO ([place]) [address] [facility] Department [place] [address] * Lipid panel (09/26/2020 12:54 PM CDT) Cholesterol 121 30 - 199 mg/dL JOSE MARCELINO ([place]) Comment: Interpretive Data Ages < or = [...] LDL, calculated 43 <=129 mg/dL JOSE MARCELINO ([place]) Comment: Interpretive [...] 2017. Non-HDL Cholesterol 61 mg/dL JOSE MARCELINO ([place]) Comment: Interpretive Data Ages < or = [...] on 2017. Chol/HDL ratio 2 YUKI MARCELINO ([place]) Blood specimen (specimen) 09/26/2020 12:54 PM CDT 09/26/2020 12:54 PM CDT us Jocelynn Coy DO LAB BLOOD ORDERABLES Final Result JOSE MARCELINO ([place]) [address] [facility] Department [place] [address] * (ABNORMAL) Comprehensive metabolic panel (09/26/2020 12:54 [...] Coy DO LAB BLOOD ORDERABLES Final Result [facility] ([place]) [address] [facility] Department [place] [address] documented in this encounter Visit Diagnoses Diagnosis Essential hypertension Unspecified essential hypertension Pure hypercholesterolemia documented in this encounter Care Teams Farmworker [employer] Relationship Specialty Start Date End Date Jocelynn Coy DO PCP - General Family Medicine 06/10/17 09/02/23 documented as of this encounter
--- OUTSIDE RECORDS SUMMARY | 2024-03-31 14:23 | XMS_ITS | Encounter Summary ---
Author Organization [facility] Facility Care Team Providers Care Hiv Counselor Name Role Phone Jocelynn Coy DO Primary Care Provider +1- [phone] Encounter Details Date Type Department Care Team (Latest Contact Info) Description 08/06/2018 Travel Social History Tobacco Use Types Packs/Day Years Used Date Smoking Tobacco: Never Smokeless Tobacco: Never Alcohol Use Standard Drinks/Week Comments No 0 (1 standard drink = 0.6 oz pur e alcohol) Comments Unknown Sex and Gender Information Value Date Recorded Sex Assigned at Not on file Legal Sex Female 8:45 PM SKOOG OPERATOR Gender Identity Female 04/25/2021 2:46 PM SKOOG OPERATOR Sexual Orientation Straight 04/25/2021 2: 46 PM SKOOG OPERATOR documented as of this encounter Plan of Treatment Not on file documented as of this encounter Visit Diagnoses Not on filedocumented in this encounter Care Teams Hiv Counselor Relationship Specialty Start Date End Date Jocelynn Coy DO PCP - General Family Medicine 06/10/17 09/02/23 documented as of this encounter
--- OUTSIDE RECORDS SUMMARY | 2024-03-31 14:23 | XMS_ITS | Encounter Summary ---
Author Organization [facility] Address [address] [place] [address] Care Team Providers Care Net Ui Developer Name Role Phone Jocelynn Coy DO Primary Care Provider +1- [phone] Reason for Visit * Reason Onset Date Comments Request from Pharmacy 10/18/2020 Encounter Details Date Type Department Care Team (Late st Contact Info) Description 10/18/2020 Telephone [facility] [address] [place] [address] Jocelynn Coy DO [address] [place] [address] [place] [phone] Request from Pharmacy Social History Tobacco Use Types Packs/Day Years [...] file Legal Sex Female 8:45 PM AUTO LOCATOR Gender Identity Female 04/25/2021 2:46 PM AUTO LOCATOR Sexual Orientation Straight 04/25/2021 2: 46 PM AUTO LOCATOR documented as of this encounter Ordered Prescriptions Prescription Sig Dispense Quantity Refills Last Filled Start Date End Date blood-glucose meter kitIndications:Type 2 diabetes mellitus with hyperglycemia, without long-term current use of insulin (HCC) 1 Device daily 1 each 10/18/2020 documented in this encounter Miscellaneous Notes * Telephone Encounter - Jessie Feng MA - 10/18/2020 9:50 AM CDT blood-glucose meter kit has been reordered and sent to pharmacy. * Telephone Encounter - Jocelynn Coy DO - 10/18/2020 9:44 AM CDT Ok to send. * Telephone Encounter - Jessie Feng MA - 10/18/2020 9:38 AM CDT Received fax from patient's pharmacy requesting prescription for: ONE TOUCH DELICA PLUS LANC DEV Patient needs a prescription for the lancing device for the lancets Please review. documented in this encounter Plan of Treatment Not on file documented as of this encounter Visit Diagnoses Diagnosis Type 2 diabetes mellitus with hyperglycemia, without long-term current use of insulin (HCC) documented in this encounter Discontinued Medications Medication Sig Discontinue Reason Start Date End Da te lancing device/lancets (ONETOUCH DELICA LANC DEVICE MISC) Error 10/18/2020 blood-glucose meter kitIndications:Type 2 diabetes mellitus with hyperglycemia, without long-term current use of insulin (HCC) 1 Device daily Reorder 10/03/2020 10/18/2020 documented as of this encounter Historical Medications * This list may reflect changes made after this encounter. Medication Sig Dispense Quantity Refills Last Filled Start D ate End Date lancing device/lancets (ONETOUCH DELICA LANC DEVICE MISC) 10/18/2020 added in this encounter Care Teams Net Ui Developer Relationship Specialty Start Date End Date Jocelynn Coy DO PCP - General Family Medicine 06/10/17 09/02/23 documented as of this encounter
--- OUTSIDE RECORDS SUMMARY | 2024-03-31 14:23 | XMS_ITS | Encounter Summary ---
Author Organization [facility] Address [address] [place] [address] Care Team Providers Care Compensation And Hris Analyst Name Role Phone Jocelynn Coy DO Primary Care Provider +1- [phone] Reason for Visit * Reason Comments Medicare Annual Wellness Visit Umairen t Encounter Details Date Type Department Care Team (Late st Contact Info) Description 03/18/2019 11:45 AM GREASE RENDERER Office Visit [facility] [address] [place] [id number] Jocelynn Coy DO [address] [facility] [place] [address] Annual physical exam (Primary Dx); Essential hypertension; Pure hypercholesterolemia ; Generalized anxiety disorder; Class 1 obesity due to excess calories with serious comorbidity and body mass index (BMI) of 30.0 to 30.9 in adult; Flu vaccine need Social History Tobacco Use Types Packs/Day Years Used Date Smoking Tobacco: Never Smokeless Tobacco: Never Alcohol Use Standard Drinks/Week Comments No 0 (1 standard drink = 0.6 oz pur e alcohol) PHQ-2 Answer Date Recorded PHQ-2 Score 0 12/04/2018 Comments Unknown Sex and Gender Information Value Date Recorded Sex Assigned at Not on file Legal Sex Female 8:45 PM GREASE RENDERER Gender Identity Female 04/25/2021 2:46 PM GREASE RENDERER Sexual Orientation Straight 04/25/2021 2: 46 PM GREASE RENDERER documented as of this encounter Last Filed Vital Signs Vital Sign Reading Time Taken Comments Blood Pressure 147/76 03/18/2019 11:40 AM GREASE RENDERER Pulse 61 03/18/2019 11:37 AM GREASE RENDERER Temperature 36.6 ??C (97.8 ??F) 03/18/2019 1 1:37 AM GREASE RENDERER Respiratory Rate 18 03/18/2019 11:3 7 AM GREASE RENDERER Oxygen Saturation 96% 03/18/2019 11: 37 AM GREASE RENDERER Inhaled Oxygen Concentration - - Weight 67.5 kg (148 lb 12.8 oz) 019 11:37 AM GREASE RENDERER Height 149.9 cm (4' 11 ) 03/18/2019 11: 37 AM GREASE RENDERER Body Mass Index 30.05 03/18/2019 11:37 AM GREASE RENDERER documented in this encounter Patient Instructions * Patient Instructions* Jocelynn Coy, DO - 03/18/2019 11:45 AM GREASE RENDERER Images from the original note were not included. Patient Education Wellness Visit for Adults SENIOR HRIS ANALYST: A wellness visit is when you see [...] of viruses cause the flu. The viruses exchange specialist time, so new vaccines are made each [...] could distract you and cause an accident. elastic attacher overlock if you need to make a call [...] boat or doing water sports. ?? 2017 [employer] Information is for End User's use only and may not be sold, redistributed or otherwise used for commercial purposes. All illustrations and images included in CareNotes?? are the copyrighted property of [employer] Inc[employer] or [employer]. The above information is an first aid officer only. It is not intended as medical advice for individual conditions or treatments. Talk to your doctor, nurse or pharmacist before following any medical regimen to see if it is safe and effective for you. Health Maintenance Topics with due status: Overdue Topic Date Due Zoster Vaccines 09/09/1991 Influenza Vaccine 12/14/2018 Health Maintenance Topics with due status: Due On Topic Date Due Regular Well Visit/Exam 03/14/2019 SE RENDERER SE RENDERER documented in this encounter Ordered Prescriptions Prescription Sig Dispense Quantity Refills Last Filled Start Date End Date LORazepam (ATIVAN) 0.5 mg tabletIndications:General ized anxiety disorder Take 1 tablet (0.5 mg total) by mouth 2 (two) times a day as needed for anxiety 60 tablet 5 9 07/22/19 20 atorvastatin (LIPITOR) 20 mg tabletIndications:Pure hypercholesterolemia Take 1 tablet (20 mg total) by mouth daily 90 tablet 3 9 03/24/20 20 documented in this encounter Progress Notes * Jocelynn Coy DO - 03/18/2019 11:45 AM CST Images from the original note were not included. MEDICARE ANNUAL WELLNESS VISIT Annita Bose Patient recently lost her . She is here today with her daughter. She reports that she's doing well. Medicare Health Risk Assessment Basic Information In general, would you say your health is: Good Do you have an Advanced Directive (Living Will) and/or Durable Power of Log Skidder?: No Would you like information regarding Advanced Directiv (Living Will) and/or Durable Power of Log Skidder?: Yes Do you have trouble hearing the television or radio when other do not?: No Do you have to strain or struggle to hear/understand conversations?: No Have you experienced any of the following problems currently or recently? Eating: No Grooming: No Bathing: No Walking: No Using the toilet: No Memory problems: No Difficulty speaking: No Have you experienced any of the following problems currently or recently? Laundry and/or housekeeping: No Handling Money: No Shopping: No Food preparation: No Transportation: No Taking and/or getting your own medications: No Problem List, Past Medical and Surgical History: Patient Active Problem List Diagnosis ??? Essential hypertension ??? Pure hypercholesterolemia ??? Generalized anxiety disorder ??? Class 1 obesity due to excess calories with serious comorbidity and body mass index (BMI) of 30.0 to 30.9 in adult History reviewed. No pertinent past medical history. [...] file Occupational History ??? Not on file Social Needs ??? Financial resource strain: Not on file ??? Food insecurity: Worry: Not on file Inability: Not on file ??? Transportation needs: Medical: Not on file Non-medical: Not on file Tobacco Use ??? Smoking status: Never Smoker ??? Smokeless tobacco: Never Used Substance and Sexual Activity ??? Alcohol use: No ??? Drug use: No ??? Sexual activity: Not on file Lifestyle ??? Physical activity: Days per week: Not on file Minutes per session: Not on file ??? Stress: Not on file Relationships ??? Social connections: Talks on phone: Not on file Gets together: Not on file Attends catholic service: Not on file Active member of club or organization: Not on file Attends meetings of clubs or organizations: Not on file Relationship status: Not on file ??? Intimate partner violence: Fear of current or ex partner: Not on file Emotionally abused: Not on file Physically abused: Not on file Forced sexual activity: Not on file Other Topics Concern ??? Not on file Social History Narrative ??? Not on file Allergies: No Known Allergies Medications: Current Outpatient Medications: ??? amLODIPine (NORVASC) 10 mg tablet, Take 1 tablet (10 mg total) by mouth daily, Disp: 90 tablet,Rfl: 3 ??? atorvastatin (LIPITOR) 20 mg tablet, Take 1 tablet (20 mg total) by mouth daily, Disp: 90 tablet, Rfl: 3 ??? LORazepam (ATIVAN) 0.5 mg tablet, Take 1 tablet (0.5 mg total) by mouth 2 (two) times a day as needed for anxiety, Disp: 60 tablet, Rfl: 5 Depression Screen: PHQ Screening [...] Down, Depressed, or Hopeless: Not at all PHQ Screening PHQ-2 Total Score (If total score is 3 or more points, staff should administer the PHQ-9): 0 Vitals: Vitals BP 147/76 Pulse 61 Temp 36.6 ??C (97.8 ??F) Resp 18 Ht 149.9 cm (4' 11 ) Wt 67.5 kg (148 lb 12.8 oz) SpO2 96% BMI 30.05 kg/m?? Body mass index is 30.05 kg/m??. Review of Systems Constitutional: Negative for chills and fever. HENT: Negative for congestion. Eyes: Negative for blurred vision. Respiratory: Negative for shortness of breath. Cardiovascular: Negative for chest pain and palpitations. Gastrointestinal: Negative for abdominal pain, nausea and vomiting. Genitourinary: Negative for hematuria. Skin: Negative for rash. Neurological: Negative for dizziness, tingling, tremors, speech change and headaches. Psychiatric/Behavioral: Negative for suicidal ideas. The patient is nervous/anxious. All other systems reviewed and are negative. Exam: Physical Exam Vitals signs and nursing note reviewed. Constitutional: Appearance: She is well-developed. HENT: Head: Normocephalic and atraumatic. Right Ear: Hearing, tympanic membrane, ear canal and external ear normal. Left Ear: Hearing, tympanic membrane, ear canal and external ear normal. Nose: Nose normal. Mouth/Throat: Mouth: Mucous membranes are moist. Pharynx: Oropharynx is clear. No oropharyngeal exudate. Eyes: General: Lids are normal. No scleral icterus. Extraocular Movements: Extraocular movements intact. Conjunctiva/sclera: Conjunctivae normal. Pupils: Pupils are equal, round, and reactive to light. Neck: Musculoskeletal: Full passive range of motion without pain, normal range of motion and neck supple. Thyroid: No thyromegaly. Cardiovascular: Rate and Rhythm: Normal rate and regular rhythm. Heart sounds: Normal heart sounds. No murmur. Pulmonary: Effort: Pulmonary effort is normal. Breath sounds: Normal breath sounds. No wheezing. Abdominal: General: Bowel sounds are normal. Palpations: Abdomen is soft. There is no mass. Tenderness: There is no tenderness. Musculoskeletal: Normal range of motion. General: No tenderness. Skin: General: Skin is warm and dry. Findings: No erythema or rash. Neurological: General: No focal deficit present. Mental Status: She is alert and oriented to person, place, and time. Coordination: Coordination normal. Psychiatric: Mood and Affect: Mood normal. Behavior: [...] 11/21/2017 MCV 80.8 11/21/2017 LABPLAT 263 11/21/2017 Care Team Providers: Patient Care Team: Jocelynn Coy DO as PCP - General (Family Medicine) Jocelynn Coy DO as PCP - Essence Attributed PCP Primary Pharmacy/DME suppliers: [id number] [place], [place] - [address] [address] Detection of Cognitive Impairment: The patient does not have cognitive impairment based on direct observation, discussion with patientor family, or review of medical records. Health Maintenance: Health Maintenance Topics with due status: Overdue Topic Date Due Zoster Vaccines 09/09/1991 Influenza Vaccine 12/14/2018 Health Maintenance Topics with due status: Postponed Topic Postponed Until Osteoporosis Screening-Bone Density Scan 03/04/2045 (Originally 1941) Health Maintenance Topics with due status: Not Due Topic Last Completion Date DTaP/Tdap/Td Vaccine 01/14/2016 Fall Risk Assessment 03/18/2019 Depression Screening-PHQ 03/18/2019 Regular Well Visit/Exam 03/18/2019 Health Maintenance Topics with due status: Completed Topic Last Completion Date Pneumococcal (PCV13 & PPSV23) 65+ yrs 03/14/2018 Counseling and Referral of Preventative Services: Lifestyle Recommendations Increase Physical Activity, Reduce Weight and Improve Diet Advanced Directive Durable Power of Log Skidder: Discussed Today: Living Will: Discussed Today: Assessment and Plan: Diagnoses and all orders for this visit: Annual physical exam (Primary) Comments: Well exam. Health maintenance updated. Essential hypertension Assessment & Plan: Waxing and waning, cont current meds. Orders: - Comprehensive metabolic panel; Future Pure hypercholesterolemia Assessment & Plan: Clinically improved, continue current meds. Orders: - Lipid panel; Future - Comprehensive metabolic panel; Future - atorvastatin (LIPITOR) 20 mg tablet; Take 1 tablet (20 mg total) by mouth daily Generalized anxiety disorder Assessment & Plan: Clinically improved, continue current meds. Orders: - LORazepam (ATIVAN) 0.5 mg tablet; Take 1 tablet (0.5 mg total) by mouth 2 (two) times a day as needed for anxiety Class 1 obesity due to excess calories with serious comorbidity and body mass index (BMI) of 30.0 to 30.9 in adult Assessment & Plan: Unchanged. Encouraged patient to decrease weight, increase daily exercise, and modify diet. Flu vaccine need - Flu Vaccine High Dose Tri PF 65y+ IM - Fluzone Patient here for annual Medicare wellness visit [...] update and summary of today's office visit. Jocelynn Coy DO SE RENDERER documented in this encounter Miscellaneous Notes * Assessment & Plan Note - Jocelynn Coy DO - 03/18/2019 12:17 PM GREASE RENDERER Associated Problem(s): BMI 26.0-26.9,adult Unchanged. Encouraged patient to decrease weight, increase daily exercise, and modify diet. SE RENDERER * Assessment & Plan Note - Jocelynn Coy DO - 03/18/2019 12:17 PM GREASE RENDERER Associated Problem(s): Generalized anxiety disorder Clinically improved, continue current meds. SE RENDERER * Assessment & Plan Note - Jocelynn Coy DO - 03/18/2019 12:17 PM GREASE RENDERER Associated Problem(s): Hyperlipidemia associated with type 2 diabetes mellitus (HCC) Clinically improved, continue current meds. SE RENDERER * Assessment & Plan Note - Jocelynn Coy DO - 03/18/2019 12:17 PM GREASE RENDERER Associated Problem(s): Hypertension associated with diabetes (HCC) Waxing and waning, cont current meds. SE RENDERER documented in this encounter Plan of Treatment Not on file documented as of this encounter Visit Diagnoses Diagnosis Annual physical exam- Primary Routine general medical examination at a health care facility Essential hypertension Unspecified essential hypertension Pure hypercholesterolemia Generalized anxiety disorder Class 1 obesity due to excess calories with serious comorbidity and body mass index (BMI) of 30.0 to 30.9 in adult Flu vaccine need documented in this encounter Discontinued Medications Medication Sig Discontinue Reason Start Date End Da te atorvastatin (LIPITOR) 20 mg tabletIndications:Pure hypercholesterolemia TAKE 1 TABLET (20 MG TOTAL) BY MOUTH DAILY. Reorder 06/17/2018 03/18/2019 LORazepam (ATIVAN) 0.5 mg tabletIndications:Anxiety TAKE 1 TABLET BY MOUTH EVERY 6 HOURS NEEDED FOR ANXIETY Reorder 02/11/2019 03/18/2019 documented as of this encounter Orders Immunization/Injection Count Last Ordered Date First Ordered Date FLU VACCINE HD TRI PF 65Y+ IM 1 03/18/2019 documented in this encounter Care Teams Compensation And Hris Analyst Relationship Specialty Start Date End Date Jocelynn Coy DO PCP - General Family Medicine 06/10/17 09/02/23 documented as of this encounter
--- OUTSIDE RECORDS SUMMARY | 2024-03-31 14:23 | XMS_ITS | Encounter Summary ---
Author Organization [facility] Facility Care Team Providers Care Bean Viner Name Role Phone Jocelynn Coy DO Primary Care Provider +1- [phone] Encounter Details Date Type Department Care Team (Latest Contact Info) Description 07/08/2019 Travel Social History Tobacco Use Types Packs/Day Years Used Date Smoking Tobacco: Never Smokeless Tobacco: Never Alcohol Use Standard Drinks/Week Comments No 0 (1 standard drink = 0.6 oz pur e alcohol) PHQ-2 Answer Date Recorded PHQ-2 Score 0 12/04/2018 Comments Unknown Sex and Gender Information Value Date Recorded Sex Assigned at Not on file Legal Sex Female 8:45 PM BAGGING SALVAGER Gender Identity Female 04/25/2021 2:46 PM BAGGING SALVAGER Sexual Orientation Straight 04/25/2021 2: 46 PM BAGGING SALVAGER COVID-19 Exposure Response Date Recorded In the last month, have you been in contact with someone who was confirmed or suspected to have Coronavirus / COVID-19? No / Unsure 07/08/2019 9:17 AM CDT documented as of this encounter Plan of Treatment Not on file documented as of this encounter Visit Diagnoses Not on filedocumented in this encounter Care Teams Bean Viner Relationship Specialty Start Date End Date Jocelynn Coy DO PCP - General Family Medicine 06/10/17 09/02/23 documented as of this encounter
--- OUTSIDE RECORDS SUMMARY | 2024-03-31 14:23 | XMS_ITS | Encounter Summary ---
Author Organization [facility] Address [address] [place] [address] Care Team Providers Care Bit Bender Name Role Phone Jocelynn Coy DO Primary Care Provider +1- [phone] Reason for Visit * Reason Comments Boils Patient has a boil o n the left side of her neck that she has been treated for but she feels as if it is not getting any better. Encounter Details Date Type Department Care Team (Late st Contact Info) Description 07/16/2019 5:30 PM CDT Office Visit [facility] [address] [place] [address] Jacquelin Quinteros, [place] [address] [facility] Abscess (Primary Dx) Social History Tobacco Use Types Packs/Day Years Used Date Smoking Tobacco: Never Smokeless Tobacco: Never Alcohol Use Standard Drinks/Week Comments No 0 (1 standard drink = 0.6 oz pur e alcohol) PHQ-2 Answer Date Recorded PHQ-2 Score 0 12/04/2018 Comments Unknown Sex and Gender Information Value Date Recorded Sex Assigned at Not on file Legal Sex Female 8:45 PM COSTUME CUTTER Gender Identity Female 04/25/2021 2:46 PM COSTUME CUTTER Sexual Orientation Straight 04/25/2021 2: 46 PM COSTUME CUTTER COVID-19 Exposure Response Date Recorded In the last month, have you been in contact with someone who was confirmed or suspected to have Coronavirus / COVID-19? No / Unsure 07/08/2019 9:17 AM CDT documented as of this encounter Last Filed Vital Signs Vital Sign Reading Time Taken Comments Blood Pressure 132/66 07/16/2019 5:57 PM CDT Pulse 70 07/16/2019 5:57 PM CDT Temperature 36.8 ??C (98.3 ??F) 07/16/2019 5:57 PM CD T Respiratory Rate 20 07/16/2019 5:57 PM CDT Oxygen Saturation 97% 07/16/2019 5:57 PM CDT Inhaled Oxygen Concentration - - Weight 67.8 kg (149 lb 6.4 oz) 07/16/2019 5:57 P M CDT Height 149.9 cm (4' 11 ) 07/16/2019 5:57 PM CDT Body Mass Index 30.18 07/16/2019 5:57 PM CDT documented in this encounter Patient Instructions * Patient Instructions* Jacquelin Quinteros, NORMAN - 07/16/2019 5:30 PM CDT Care of Abscess ??? Apply mupirocin as directed. ??? Take ibuprofen (800 mg 3 times [...] Refills Last Filled Start Date End Date mupirocin (BACTROBAN) 2 % ointmentIndication s:Abscess Apply topically 3 (three) times a day 22 g 07/16/2019 0 documented in this encounter Progress Notes * Jacquelin Quinteros NP - 07/16/2019 5:30 PM CDT Images from the original note were not included. Subjective/Objective Patient ID: Annita Bose is a 78 y.o. female. Chief Complaint Boils (Patient has a boil on the left side of her neck that she has been treated for but she feels as if it is not getting any better. ) Presents to [facility] with c/o irritation to site of abscess to L neck following I/D on 07/05/2019. Patient reports that site improved with antibiotics and has recently begun itching and has surrounding redness. Denies fever. Review of Systems Constitutional: Negative. Respiratory: Negative. Cardiovascular: Negative. Skin: Positive for wound (abscess, post I/D L neck). Physical Exam Eyes: Conjunctiva/sclera: Conjunctivae normal. Cardiovascular: Rate and Rhythm: Normal rate and regular rhythm. Pulmonary: Effort: Pulmonary effort is normal. Skin: General: Skin is warm and dry. Findings: Wound (L neck) present. Comments: No warmth, erythema, or swelling at site of I/D, erythema noted to surrounding tissue. Neurological: Mental Status: She is alert. Psychiatric: Mood and Affect: Mood normal. Vitals: 07/16/19 1757 BP: 132/66 BP Location: Left arm Patient Position: Sitting Pulse: 70 Resp: 20 Temp: 36.8 ??C (98.3 ??F) TempSrc: Oral SpO2: 97% Weight: 67.8 kg (149 lb 6.4 oz) Height: 149.9 cm (4' 11 ) Assessment/Plan Patient reports she has been cleaning site three times daily. Irritation noted at site. Discussed reducing cleansing to once daily, twice if soiled. No s/s infection at site, will prescribe Bactrobanas prophylaxis. Patient advised to f/u with PCP if s/s infection develops. Diagnoses and all orders for this visit: Abscess (Primary) - mupirocin (BACTROBAN) 2 % ointment; Apply topically 3 (three) times a day Patient Education: Care of Abscess ??? Apply mupirocin as directed. ??? Take ibuprofen (800 mg 3 times [...] Jacquelin Quinteros NP documented in this encounter Plan of Treatment Not on file documented as of this encounter Visit Diagnoses Diagnosis Abscess- Primary Cellulitis and abscess of unspecified site documented in this encounter Care Teams Bit Bender Relationship Specialty Start Date End Date Jocelynn Coy DO PCP - General Family Medicine 06/10/17 09/02/23 documented as of this encounter
--- OUTSIDE RECORDS SUMMARY | 2024-03-31 14:23 | XMS_ITS | Encounter Summary ---
Author Organization [facility] Address [address] [place] [address] Care Team Providers Care Stenciling Machine Tender Name Role Phone Jocelynn Coy DO Primary Care Provider +1- [phone] Reason for Visit * Reason Comments Essence Enhanced Encounter Encounter Details Date Type Department Care Team (Late st Contact Info) Description 03/24/2020 1:45 PM ASSOCIATE LOAN OFFICER Office Visit [facility] [address] [place] [id number] Jocelynn Coy DO [address] [facility] [address] [address] Annual physical exam (Primary Dx); Essential hypertension; [...] on file Legal Sex Female 8:45 PM ASSOCIATE LOAN OFFICER Gender Identity Female 04/25/2021 2:46 PM ASSOCIATE LOAN OFFICER Sexual Orientation Straight 04/25/2021 2: 46 PM ASSOCIATE LOAN OFFICER documented as of this encounter Last Filed Vital Signs Vital Sign Reading Time Taken Comments Blood Pressure 142/68 03/24/2020 2:24 PM ASSOCIATE LOAN OFFICER Pulse 77 03/24/2020 1:55 PM ASSOCIATE LOAN OFFICER Temperature 36.2 ??C (97.1 ??F) 03/24/2020 1:55 PM CS T Respiratory Rate 20 03/24/2020 1:55 PM ASSOCIATE LOAN OFFICER Oxygen Saturation 95% 03/24/2020 1:55 PM ASSOCIATE LOAN OFFICER Inhaled Oxygen Concentration - - Weight 67.9 kg (149 lb 9.6 oz) 03/24/2020 1:55 P M ASSOCIATE LOAN OFFICER Height 149.9 cm (4' 11 ) 03/24/2020 1:55 PM ASSOCIATE LOAN OFFICER Body Mass Index 30.22 03/24/2020 1:55 PM ASSOCIATE LOAN OFFICER documented in this encounter Patient Instructions * Patient Instructions* Jocelynn Coy, DO - 03/24/2020 1:45 PM ASSOCIATE LOAN OFFICER Images from the original note were not included. Patient Education Wellness Visit for Adults VICE PRESIDENT PAYER: A wellness visit is when you see [...] of viruses cause the flu. The viruses casino change attendant time, so new vaccines are [...] could distract you and cause an accident. requisition approver if you need to make a call [...] boat or doing water sports. ?? 2017 [employer] Information is for End User's use only and may not be sold, redistributed or otherwise used for commercial purposes. All illustrations and images included in CareNotes?? are the copyrighted property of [employer] or [employer]. The above information is an special education classroom aide only. It is not intended as medical advice for individual conditions or treatments. Talk to your doctor, nurse or pharmacist before following any medical regimen to see if it is safe and effective for you. Health Maintenance Topics with due status: Overdue Topic Date Due Zoster Vaccines 09/09/1991 CIATE LOAN OFFICER documented in this encounter Ordered Prescriptions Prescription Sig Dispense Quantity Refills Last Filled Start Date End Date atorvastatin (LIPITOR) 20 mg tabletIndications:Pure hypercholesterolemia Take 1 tablet (20 mg total) by mouth daily 90 tablet 3 0 03/30/20 21 LORazepam (ATIVAN) 0.5 mg tabletIndications:General ized anxiety disorder Take 1 tablet (0.5 mg total) by mouth 2 (two) times a day 60 tablet 5 0 09/23/19 21 documented in this encounter Progress Notes * Jocelynn Coy DO - 03/24/2020 1:45 PM CST Images from the original note were not included. MEDICARE ANNUAL WELLNESS VISIT Annita Bose She is here today with her daughter. She reports that she's doing well. Medicare Health Risk Assessment Basic Information In general, would you say your health is: Good Do you have an Advanced Directive (Living Will) and/or Durable Power of Massage Therapist?: No Would you like information regarding Advanced Directiv (Living Will) and/or Durable Power of Massage Therapist?: No Do you have trouble hearing the television [...] resource strain: Not on file ??? Food insecurity Worry: Not on file Inability: Not on file ??? Transportation needs Medical: Not on file Non-medical: Not on file Tobacco Use ??? Smoking status: Never Smoker ??? Smokeless tobacco: Never Used Substance and Sexual Activity ??? Alcohol use: No ??? Drug use: No ??? Sexual activity: Not on file Lifestyle ??? Physical activity Days per week: Not on file Minutes per session: Not on file ??? Stress: Not on file Relationships ??? Social connections Talks on phone: Not on file Gets together: Not on file Attends anabaptism service: Not on file Active member of club or organization: Not on file Attends meetings of clubs or organizations: Not on file Relationship status: Not on file ??? Intimate partner violence Fear of current or ex partner: Not [...] a day, Disp: 60 tablet, Rfl: 5 Depression Screen: [...] administer the PHQ-9): 0 Vitals: Vitals BP 142/68 (BP Location: Left arm, Patient Position: Sitting) Pulse 77 Temp 36.2 ??C (97.1 ??F) (Temporal) Resp 20 Ht 149.9 cm (4' 11 ) Wt 67.9 kg (149 lb 9.6 oz) SpO2 95% BMI 30.22 kg/m?? Body mass index is 30.22 kg/m??. Review of Systems Constitutional: Negative for chills, fever and malaise/fatigue. HENT: Negative for congestion and sore throat. Eyes: Negative for blurred vision. Respiratory: Negative for cough and shortness of breath. Cardiovascular: Negative for chest pain and palpitations. Gastrointestinal: Negative for abdominal pain, nausea and vomiting. Genitourinary: Negative for hematuria. Musculoskeletal: Negative for myalgias. Skin: Negative for rash. Neurological: Negative for dizziness, tingling, tremors, speech change and headaches. Psychiatric/Behavioral: Negative for suicidal ideas. The patient is nervous/anxious. All other systems reviewed and are negative. Exam: Physical Exam Vitals signs and nursing note reviewed. Constitutional: Appearance: She is well-developed. She is obese. HENT: Head: Normocephalic and atraumatic. Right Ear: [...] Tenderness: There is no abdominal tenderness. Musculoskeletal: Normal range of motion. Right lower leg: No edema. Left lower leg: No edema. Skin: General: Skin is warm and dry. Findings: No erythema or rash. Neurological: General: No focal deficit present. Mental Status: She is alert and oriented to person, place, and time. Psychiatric: Mood and Affect: Mood normal. Behavior: Behavior normal. Thought Content: Thought content normal. Lab Results Component Value Date CHOL 164 03/24/2020 CHOL 170 11/21/2017 Lab Results Component Value Date HDL 67 03/24/2020 HDL 60 11/21/2017 Lab Results Component Value Date LDLCALC 79 03/24/2020 LDL 86 11/21/2017 Lab Results Component Value Date TRIG 92 03/24/2020 TRIG 141 11/21/2017 Chemistry Component Value Date/Time SODIUM 137 03/24/2020 1452 SODIUM 139 11/21/2017 1516 POTASSIUM 4.4 03/24/2020 1452 POTASSIUM 4.2 11/21/2017 1516 CHLORIDE 102 03/24/2020 1452 CHLORIDE 107 11/21/2017 1516 CO2 29 03/24/2020 1452 CO2 27 11/21/2017 1516 BUNSER 18 03/24/2020 1452 BUNSER 14 11/21/2017 1516 CREATININE 0.84 03/24/2020 1452 CREATININE 0.68 11/21/2017 1516 GLUCOSE 82 03/24/2020 1452 GLUCOSE 97 11/21/2017 1516 Component Value Date/Time CALCIUM 9.5 03/24/2020 1452 CALCIUM 9.5 11/21/2017 1516 ALKPHOS 90 03/24/2020 1452 ALKPHOS 76 11/21/2017 1516 AST 24 03/24/2020 1452 AST 15 11/21/2017 1516 ALT 15 03/24/2020 1452 ALT 13 11/21/2017 1516 BILITOT 0.3 03/24/2020 1452 BILITOT 0.3 11/21/2017 1516 Lab Results Component Value Date WBC 5.8 03/24/2020 HGB 13.2 03/24/2020 HCT 42.4 03/24/2020 MCV 85.5 03/24/2020 LABPLAT 271 03/24/2020 Care Team Providers: Patient Care Team: Jocelynn Coy DO as PCP - General (Family Medicine) Primary Pharmacy/DME suppliers: [facility]/pharmacy #[id number] - [place], [place] - [address] [address] Detection of Cognitive Impairment: The patient does not have cognitive impairment based on direct observation, discussion with patientor family, or review of medical records. Health Maintenance: Health Maintenance Topics with due status: Overdue Topic Date Due Zoster Vaccines 09/09/1991 Health Maintenance Topics with due status: Postponed Topic Postponed Until Osteoporosis Screening-Bone Density Scan 03/04/2045 (Originally 1941) Health Maintenance Topics with due status: Not Due Topic Last Completion Date DTaP/Tdap/Td Vaccine 01/14/2016 Fall Risk Assessment 03/24/2020 Depression Screening-PHQ 03/24/2020 Regular Well Visit/Exam 03/24/2020 Health Maintenance Topics with due status: Completed Topic Last Completion Date Pneumococcal (PCV13 & PPSV23) 65+ yrs 03/14/2018 Influenza Vaccine 03/24/2020 Counseling and Referral of Preventative Services: Lifestyle Recommendations Increase Physical Activity, Reduce Weight and Improve Diet Advanced Directive Durable Power of Massage Therapist: Discussed Today: Living Will: Discussed Today: Assessment and Plan: Diagnoses and all orders for this visit: Annual physical exam (Primary) Comments: Well exam, health maintenance updated. Essential hypertension Assessment & Plan: Within normal range, low sodium diet recommended. Cont current meds. Orders: - CBC with auto differential; Future - Comprehensive metabolic panel; Future - Lipid panel; Future - Urinalysis reflex to microscopic; Future Pure hypercholesterolemia Assessment & Plan: Good control. Low chol diet recommended. Orders: - Comprehensive metabolic panel; Future - Lipid panel; Future - atorvastatin (LIPITOR) 20 mg tablet; Take 1 tablet (20 mg total) by mouth daily Generalized anxiety disorder Assessment & Plan: Clinically improved, continue current meds. Orders: - LORazepam (ATIVAN) 0.5 mg tablet; Take 1 tablet (0.5 mg total) by mouth 2 (two) times a day Class 1 obesity due to excess calories with serious comorbidity and body mass index (BMI) of 30.0 to 30.9 in adult Assessment & Plan: Weight reduction, daily exercise and dietary modifications recommended. Flu vaccine need - Flu Vaccine Quad High Dose PF [...] of today's office visit. Jocelynn Coy DO CIATE LOAN OFFICER documented in this encounter Miscellaneous Notes * Assessment & Plan Note - Jocelynn Coy DO - 03/26/2020 8:15 PM ASSOCIATE LOAN OFFICER Associated Problem(s): BMI 26.0-26.9,adult Weight reduction, daily exercise and dietary modifications recommended. CIATE LOAN OFFICER * Assessment & Plan Note - Jocelynn Coy DO - 03/26/2020 8:15 PM ASSOCIATE LOAN OFFICER Associated Problem(s): Generalized anxiety disorder Clinically improved, continue current meds. CIATE LOAN OFFICER * Assessment & Plan Note - Jocelynn Coy DO - 03/26/2020 8:15 PM ASSOCIATE LOAN OFFICER Associated Problem(s): Hyperlipidemia associated with type 2 diabetes mellitus (HCC) Good control. Low chol diet recommended. CIATE LOAN OFFICER * Assessment & Plan Note - Jocelynn Coy DO - 03/26/2020 8:14 PM ASSOCIATE LOAN OFFICER Associated Problem(s): Hypertension associated with diabetes (HCC) Within normal range, low sodium diet recommended. Cont current meds. CIATE LOAN OFFICER documented in this encounter Plan of Treatment Not on file documented as of this encounter Results * (ABNORMAL) Urinalysis reflex to microscopic (03/24/2020 2:52 PM ASSOCIATE LOAN OFFICER) Color, ur Yellow Yellow [facility] ([facility]) Clarity, ur Clear Clear [facility] ([facility]) Specific gravity, ur 1.016 1.010 - 1.025 [facility] ([facility]) pH, urine 6.0 [facility] ([facility]) Protein, ur ql Negative Negative [facility] ([facility]) Glucose, ur ql Negative Negative [facility] ([place]) Ketones, ur Negative Negative [facility] ([facility]) Bilirubin, ur Negative Negative [facility] ([facility]) Blood, ur Negative Negative [facility] ([place]) Urobilinogen, ur <2.0 <2.0 mg/dL [facility] ([facility]) Nitrite, ur Negative Negative [facility] ([facility]) Leukocyte esterase, ur 3+(A) Negative [facility] ([facility]) UA reflex comment Reflex to microscopic UA will be performed. [facility] ([facility]) Urine 03/24/2020 2:52 PM ASSOCIATE LOAN OFFICER 03/24/2020 5:06 PM ASSOCIATE LOAN OFFICER Narrative [facility] ([facility]) - 03/24/2020 5:21 PM ASSOCIATE LOAN OFFICER ?? Urine pH is affected by diet, medications, systemic acid-base disturbances, and renal tubular function. ??pH may affect urinary stone formation. ??For example, urine pH below 6.0 may help reduce the tendency for calcium phosphate stones and pH greater than 6.0 may reduce the tendency for uric acid stone formation. Source: [facility]. Last revised 04-25-2017 us Jocelynn Coy DO LAB URINE ORDERABLES Final Result [facility] ([place]) [address] [facility] Department [place] [address] * Lipid panel (03/24/2020 2:52 PM ASSOCIATE LOAN OFFICER) Cholesterol 164 30 - 199 mg/dL [facility] ([facility]) Comment: Interpretive Data Ages < or [...] Data was last revised on 2017. HDL 67 >=40 mg/dL [facility]) Comment: Interpretive Data [...] was last revised on 2017. LDL, calculated 79 <=129 mg/dL [facility] ([facility]) Comment: Interpretive [...] was last revised on 2017. Non-HDL Cholesterol 97 mg/dL [facility] ([facility]) Comment: Interpretive Data [...] Chol/HDL ratio 2 [facility] ([place]) Blood specimen (specimen) 03/24/2020 2:52 PM ASSOCIATE LOAN OFFICER 03/24/2020 5:06 PM ASSOCIATE LOAN OFFICER us Jocelynn Cintron Zbigniew DO LAB BLOOD ORDERABLES Final Result [facility] ([facility]) [address] [facility] Department [place] [address] * Comprehensive metabolic panel (03/24/2020 2:52 PM ASSOCIATE LOAN OFFICER) Sodium 137 135 - 145 mmol/L [facility] ([facility]) Potassium, pl 4.4 3.3 - 4.9 mmol/L [facility] ([facility]) Chloride 102 97 - 110 mmol/L [facility] ([facility]) CO2 29 22 - 32 mmol/L [facility] ([facility]) Anion gap 7 2 - 15 mmol/L [facility] ([facility]) BUN 18 8 - 25 mg/dL [facility] ([facility]) Creatinine 0.84 0.60 - 1.10 mg/dL [facility] ([facility]) Glucose 82 70 - 199 mg/dL [facility] ([facility]) [...] interpretive data was last revised 2017. Calcium 9.5 8.5 - 10.3 mg/dL [facility] ([facility]) Bilirubin, total 0.3 0.1 - 1.2 mg/dL [facility] ([place]) Protein, pl 7.2 6.5 - 8.5 g/dL [facility] ([place]) Albumin 3.8 3.5 - 5.0 g/dL [facility] ([facility]) Alk phos 90 40 - 130 Units/L [facility] ([facility]) ALT 15 7 - 45 Units/L [facility] ([facility]) AST 24 10 - 45 Units/L [facility] ([facility]) Blood specimen (specimen) 03/24/2020 2:52 PM ASSOCIATE LOAN OFFICER 03/24/2020 5:06 PM ASSOCIATE LOAN OFFICER Jocelynn Coy DO LAB BLOOD ORDERABLES Final Result Performing Organization Address City/[facility]/ZIP Co de Phone Number [facility] ([place]) [address] [facility] Department [place] [address] * (ABNORMAL) CBC with auto differential (03/24/2020 2:52 PM ASSOCIATE LOAN OFFICER) WBC 5.8 3.8 - 9.9 K/cumm [facility] ([facility]) Hgb 13.2 11.9 - 15.5 g/dL [facility] ([facility]) Hct 42.4 35.6 - 45.5 % [facility] ([facility]) Plt 271 150 - 400 K/cumm [facility] ([facility]) MPV 10.7 9.1 - 12.3 fL [facility] ([facility]) RBC 4.96 3.90 - 5.20 M/cumm [facility] ([facility]) MCV 85.5 81.3 - 96.4 fL [facility] ([facility]) MCH 26.6(L) 27.1 - 33.3 pg [facility] ([place]) MCHC 31.1(L) 32.3 - 35.7 g/dL [facility] ([place]) RDW CV 12.9 11.1 - 14.9 % [facility] ([place]) RDW SD 40.1 35.7 - 48.1 fL [facility] ([facility]) NRBC abs 0.00 0.00 - 0.01 K/cumm [facility] ([place]) Blood specimen (specimen) 03/24/2020 2:52 PM ASSOCIATE LOAN OFFICER 03/24/2020 5:06 PM ASSOCIATE LOAN OFFICER us Jocelynn Coy DO LAB BLOOD ORDERABLES Final Result Performing Organization Address City/[facility]/ZIP Co de Phone Number [facility] ([place]) [address] [facility] Department [place] [address] documented in this encounter Visit Diagnoses Diagnosis Annual physical exam- Primary Routine general medical examination at a health care facility Essential hypertension Unspecified essential hypertension Pure hypercholesterolemia Generalized anxiety disorder Class 1 obesity due to excess calories with serious comorbidity and body mass index (BMI) of 30.0 to 30.9 in adult Flu vaccine need Essential hypertension Unspecified essential hypertension Pure hypercholesterolemia documented in this encounter Discontinued Medications Medication Sig Discontinue Reason Start Date End Da te atorvastatin (LIPITOR) 20 mg tabletIndications:Pure hypercholesterolemia Take 1 tablet (20 mg total) by mouth daily Reorder 03/18/2019 03/24/2020 LORazepam (ATIVAN) 0.5 mg tabletIndications:Generalized anxiety disorder TAKE 1 TABLET BY MOUTH TWICE A DAY NEEDED FOR ANXIETY *MAY FILL 08/21/19* Reorder 03/15/2020 03/24/2020 documented as of this encounter Orders Immunization/Injection Count Last Ordered Date First Ordered Date FLU VACCINE HIGH DOSE QUAD P F 65Y+ IM - FLUZONE HIGH DOS 1 03/24/2020 documented in this encounter Care Teams Stenciling Machine Tender Relationship Specialty Start Date End Date Jocelynn Coy DO PCP - General Family Medicine 06/10/17 09/02/23 documented as of this encounter
--- OUTSIDE RECORDS SUMMARY | 2024-03-31 14:23 | XMS_ITS | Encounter Summary ---
Author Organization [facility] Address [address] [place] [address] Care Team Providers Care Plastic Tubing Insulation Supervisor Name Role Phone Jocelynn Coy DO Primary Care Provider [phone]- [phone] Encounter Details Date Type Department Care Team (Late st Contact Info) Description 10/03/2020 Orders Only [facility] [address] [place] [address] Jocelynn Coy DO [address] [facility] [address] [id number] Type 2 diabetes mellitus with hyperglycemia, without long-term current use of insulin ([facility]) (Primary Dx) Social History Tobacco Use Types [...] on file Legal Sex Female 8:45 PM FIXING CARPENTER Gender Identity Female 04/25/2021 2:46 PM FIXING CARPENTER Sexual Orientation Straight 04/25/2021 2: 46 PM FIXING CARPENTER documented as of this encounter Ordered Prescriptions Prescription Sig Dispense Quantity Refills Last Filled Start Date End Date lancets 31 gauge miscIndications:Ty pe 2 diabetes mellitus with hyperglycemia, without long-term current use of insulin (HCC) 1 Device daily 100 each 3 10/03/2020 metFORMIN XR (GLUCOPHAGE XR) 500 mg 24 hr tabletIndications: Type 2 diabetes mellitus with hyperglycemia, without long-term current use of insulin (HCC) Take 1 tablet (500 mg total) by mouth daily with breakfast 90 tablet 3 10/03/2020 2 blood-glucose meter kitIndications:Typ e 2 diabetes mellitus with hyperglycemia, without long-term current use of insulin (HCC) 1 Device daily 1 each 10/03/2020 1 blood glucose diagnostic stripIndications:T ype 2 diabetes mellitus with hyperglycemia, without long-term current use of insulin (HCC) Use one strip to monitor home blood sugars daily. 100 each 3 10/03/2020 1 documented in this encounter Plan of Treatment Not on file documented as of this encounter Visit Diagnoses Diagnosis Type 2 diabetes mellitus with hyperglycemia, without long-term current use of insulin (HCC)- Primary documented in this encounter Care Teams Plastic Tubing Insulation Supervisor Relationship Specialty Start Date End Date Jocelynn Coy DO PCP - General Family Medicine 06/10/17 09/02/23 documented as of this encounter
--- OUTSIDE RECORDS SUMMARY | 2024-03-31 14:23 | XMS_ITS | Encounter Summary ---
Author Organization [facility] Address [address] [place] [address] Care Team Providers Care Storeroom Clerk Name Role Phone Jocelynn Coy DO Primary Care Provider [phone]- [phone] Encounter Details Date Type Department Care Team (Late st Contact Info) Description 07/03/2019 Telephone [facility] [address] [place] [address] Delphine Key MA Social History Tobacco Use Types Packs/Day Years Used Date Smoking Tobacco: Never Smokeless Tobacco: Never Alcohol Use Standard Drinks/Week Comments No 0 (1 standard drink = 0.6 oz pur e alcohol) PHQ-2 Answer Date Recorded PHQ-2 Score 0 12/04/2018 Comments Unknown Sex and Gender Information Value Date Recorded Sex Assigned at Not on file 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 She stated it's getting better and smaller I informed her that if this changes or gets worse to contact us at the office. * Telephone Encounter - Delphine Martin MA - 07/07/2019 7:43 AM CDT Attempted to contact Annita with no answer. LMOM to contact the office back. * Telephone Encounter - Delphine Martin MA - 07/06/2019 11:12 AM CDT Attempted to contact Annita with no answer. LMOM to contact the office back. * Telephone Encounter - Jocelynn Coy DO - 07/04/2019 4:03 PM CDT Please yvonne for an ov before 12 noon this week, for further eval.unless she has access to video visits. * Telephone Encounter - Delphine Martin MA - 07/03/2019 9:20 AM CDT Patient left voicemail I have a boil on my cheek and wanted to know if you could prescribe something to get rid of it documented in this encounter Plan of Treatment Not on file documented as of this encounter Visit Diagnoses Not on filedocumented in this encounter Care Teams Storeroom Clerk Relationship Specialty Start Date End Date Jocelynn Coy DO PCP - General Family Medicine 06/10/17 09/02/23 documented as of this encounter
--- OUTSIDE RECORDS SUMMARY | 2024-03-31 14:23 | XMS_ITS | Encounter Summary ---
Author Organization [facility] Address [address] [place] [address] Care Team Providers Care Manager Of Pmo Name Role Phone Jocelynn Coy DO Primary Care Provider [phone]- [phone] Reason for Referral * Consultation (Routine) - Closed Specialty Diagnoses / Procedures Referred By Jamaal chiang Referred To Contact Podiatry Diagnoses Type 2 diabetes mellitus with hyperglycemia, without long-term current use of insulin (HCC) Jocelynn Coy DO Phone: tel: fax: Brian Mims, [facility] [address] [place] [address] Phone: tel: fax: Referral ID Status Reason Start Date Expiration Date V isits Requested Visits Authorized [id number] Closed Specialty Services Required 10/13/2020 11/12/2021 1 1 Question Answer Please select the performing region: External Order [171] To provider: BRIAN MIMS [[id number]] * Consultation (Routine) - Closed Specialty Diagnoses / Procedures Referred By Jamaal chiang Referred To Contact Diabetes and Nutrition Services Diagnoses Type 2 diabetes mellitus with hyperglycemia, without long-term current use of insulin (HCC) Hyperlipidemia associated with type 2 diabetes mellitus (HCC) Jocelynn Coy DO Phone: tel: fax: [facility] [address] [place] [address] Referral ID Status Reason Start Date Expiration Date V isits Requested Visits Authorized [id number] Closed Specialty Services Required 10/13/2020 11/12/2021 1 1 Question Answer [email or web address] Yes Service requested Diabetes Self-Management Education/Training (DSMT) + Medical Nutrition Therapy (MNT) Diabetes Self-Management Education/Training (DSMT) Hours of Treatment Initial DSME/T: 10 hours (1 individual + 9 group) DNCNRFR All 10 DSMT content areas as appropriate Reason for Referral New Diagnosis [id number] Vision Complications/Comorbidities (Check all that apply): Hypertension, Dyslipidemia DNMNTRFR Initial / Annual Follow-up MNT Please select the performing region: [facility] [[id number]] Reason for Visit * Reason Comments Diabetes Hearing Problem Encounter Details Date Type Department Care Team (Late st Contact Info) Description 10/13/2020 2:15 PM CDT Office Visit [facility] [address] [place] [id number] Jocelynn Coy DO [address] [facility] [address] [address] Type 2 diabetes mellitus with hyperglycemia, without long-term current use of insulin (CMS/HCC) (Primary Dx); Hypertension associated with diabetes (CMS/HCC); Hyperlipidemia associated with type 2 diabetes mellitus (CMS/HCC); Decreased hearing of both ears Social History Tobacco Use Types Packs/Day Years [...] on file 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 Gender Identity Female 04/25/2021 2:46 PM BIRD TENDER Sexual Orientation Straight 04/25/2021 2: 46 PM BIRD TENDER documented as of this encounter Last Filed Vital Signs Vital Sign Reading Time Taken Comments Blood Pressure 149/65 10/13/2020 2:43 PM CDT Pulse 70 10/13/2020 2:43 PM CDT Temperature 36.1 ??C (96.9 ??F) 10/13/2020 2:43 PM CD T Respiratory Rate 16 10/13/2020 2:43 PM CDT Oxygen Saturation 96% 10/13/2020 2:43 PM CDT Inhaled Oxygen Concentration - - Weight 63.5 kg (139 lb 14.4 oz) 10/13/2020 2:43 PM CDT Height 149.9 cm (4' 11.02 ) 10/13/2020 2:43 PM C DT Body Mass Index 28.24 10/13/2020 2:43 PM CDT documented in this encounter Patient Instructions * Patient Instructions* Jocelynn Coy, DO - 10/13/2020 2:15 PM CDT Images from the original note were not included. Patient Education Diabetes in the Older Adult CLOUD INFRASTRUCTURE ARCHITECT: What you need to know if you are an older adult with diabetes: Older adults with diabetes are at risk for heart disease, stroke, kidney disease, blindness, and nerve damage. You may also be at risk for any of the following: ?? Poor nutrition or low blood sugar levels ?? Confusion or problems with memory, attention, or learning new things ?? Trouble controlling urination or frequent urinary tract infections ?? Trouble with coordination or balance ?? Falls and injuries ?? Pain ?? Depression ?? Open sores on your legs or feet The ABCs of diabetes: The ABCs stand for certain things you can do to manage or prevent problems caused by diabetes: ?? A stands for A1c test . This test shows the average amount of sugar in your blood over the past 2 to 3 months. High levels of sugar in your blood can cause damage to your heart, blood vessels, kidneys, feet, and eyes. Most older adults with diabetes should have an A1c level less than 7.5. Ask your healthcare provider if this A1c goal is right for you. Your provider can help you make changes ifyour A1c is too high. ?? B stands for blood pressure . High blood pressure can increase your risk for a heart attack, stroke, or kidney disease. Most older adults with diabetes should have a systolic blood pressure (firstnumber) of 140. Your diastolic blood pressure (second number) should be below 90. Ask your healthcare provider if these blood pressure goals are right for you. ?? C stands for cholesterol . High levels of cholesterol can block your arteries and cause a heart attack or stroke. Ask your healthcare provider what your cholesterol levels should be. ?? S stands for stop smoking . Nicotine and other chemicals in cigarettes and cigars can cause lungdamage and make it more difficult to manage your diabetes. Call 911 if you have any of the following: ?? You have any of the following signs of a stroke: ?? Numbness or drooping on one side of your face ?? Weakness in an arm or leg ?? Confusion or difficulty speaking ?? Dizziness, a severe headache, or vision loss ?? You have any of the following signs of a heart attack: ?? Squeezing, pressure, or pain in your chest that lasts longer than 5 minutes or returns ?? Discomfort or pain in your back, neck, jaw, stomach, or arm ?? Trouble breathing ?? Nausea or vomiting ?? Lightheadedness or a sudden cold sweat, especially with chest pain or trouble breathing Seek care immediately if: ?? You have severe abdominal pain, or the pain spreads to your back. You may also be vomiting. ?? You have trouble staying awake or focusing. ?? You are shaking or sweating. ?? You have blurred or double vision. ?? Your breath has a fruity, sweet smell. ?? Your breathing is deep and labored, or rapid and shallow. ?? Your heartbeat is fast and weak. ?? You fall and get hurt. Contact your healthcare provider if: ?? You are vomiting or have diarrhea. ?? You have an upset stomach and cannot eat the foods on your meal plan. ?? You feel weak or more tired than usual. ?? You feel dizzy, have headaches, or are easily irritated. ?? Your skin is red, warm, dry, or swollen. ?? You have a wound that does not heal. ?? You have numbness in your arms or legs. ?? You have trouble coping with your illness, or you feel anxious or depressed. ?? You have problems with your memory. ?? You have changes in your vision. ?? You have questions or concerns about your condition or care. Treatment for diabetes includes keeping your blood sugar at a normal level. You must eat the right foods, and exercise regularly. You may need medicine if you cannot control your blood sugar level with nutrition and exercise. You may also need medicine to lower your blood pressure or cholesterol, or medicine to prevent blood clots. Manage the ABCs and prevent problems caused by diabetes: ?? Check your blood sugar levels as directed. Your healthcare provider will tell you when and how often to check during the day. Your healthcare provider will also tell you what your blood sugar levels should be before and after a meal. You may need to check for ketones in your urine or blood if your level is higher than directed. Write down your results and show them to your healthcare provider.Your provider may use the results to make changes to your medicine, food, or exercise schedules. Ask your healthcare provider for more information about how to treat a high or low blood sugar level. ?? Follow your meal plan as directed. A dietitian will help you make a meal plan to keep your bloodsugar level steady and make sure you get enough nutrition. Do not skip meals. Your blood sugar level may drop too low if you have taken diabetes medicine and do not eat. Ask your healthcare provider about programs in your community that can deliver the meals to your home. ?? Try to be active for 30 to 60 minutes most days of the week. Exercise can help keep your blood sugar level steady, decrease your risk of heart disease, and help you lose weight. It can also help improve your balance and decrease your risk for falls. Work with your healthcare provider to create an exercise plan. Ask a family member or friend to exercise with you. Start slow and exercise for 5 to 10 minutes at a time. Examples of activities include walking or swimming. Include muscle strengthening activities 2 to 3 days each week. Include balance training 2 to 3 times each week. Activities that help increase balance include yoga and qing chi. ?? Maintain a healthy weight. Ask your healthcare provider how much you should weigh. A healthy weight can help you control your diabetes and prevent heart disease. Ask your provider to help you create a weight loss plan if you are overweight. Together you can set manageable weight loss goals. ?? Do not smoke. Ask your healthcare provider for information if you currently smoke and need help to quit. Do not use e-cigarettes or smokeless tobacco in place of cigarettes or to help you quit. They still contain nicotine. ?? Manage stress. Stress may increase your blood sugar level. Deep breathing, muscle relaxation, and music may help you relax. Ask your healthcare provider for more information about these practices. Other ways to manage your diabetes: ?? Check your feet every day for sores. Look at your whole foot, including the bottom, and between and under your toes. Check for wounds, corns, and calluses. Use a mirror to see the bottom of your feet. The skin on your feet may be shiny, tight, dry, or darker than normal. Your feet may also be cold and pale. Feel your feet by running your hands along the tops, bottoms, sides, and between your toes. Redness, swelling, and warmth are signs of blood flow problems that can lead to a foot ulcer. Do not try to remove corns or calluses yourself. ?? Wear medical alert identification. Wear medical alert jewelry or carry a card that says you havediabetes. Ask your healthcare provider where to get these items. ?? Ask about vaccines. You have a higher risk for serious illness if you get the flu, pneumonia, orhepatitis. Ask your healthcare provider if you should get a flu, pneumonia, shingles, or hepatitis B vaccine, and when to get the vaccine. ?? Keep all appointments. You may need to return to have your A1c checked every 3 months. You will need to return at least once each year to have your feet checked. You will need an eye exam once a year to check for retinopathy. You will also need urine tests every year to check for kidney problems. You may need tests to monitor for heart disease. Write down your questions so you remember to ask them during your visits. ?? Get help from family and friends. You may need help checking your blood sugar level, giving insulin injections, or preparing your meals. Ask your family and friends to help you with these tasks. Talk to your healthcare provider if you do not have someone at home to help you. A healthcare provider can come to your home to help you with these tasks. Follow up with your healthcare provider as directed: You may need to return to have your A1c checked every 3 months. You will need to return at least once each year to have your feet checked. You will need an eye exam once a year to check for retinopathy. You will also need urine tests every year to check for kidney problems. You may need tests to monitor for heart disease. Write down your questions so you remember to ask them during your visits. ?? 2017 [employer] Information is for End User's use only and may not be sold, redistributed or otherwise used for commercial purposes. All illustrations and images included in CareNotes?? are the copyrighted property of [employer]. or [employer]. The above information is an barmaid only. It is not intended as medical advice for individual conditions or treatments. Talk to your doctor, nurse or pharmacist before following any medical regimen to see if it is safe and effective for you. Health Maintenance Topics with due status: Overdue Topic Date Due Foot Exam Never done Dilated Eye Exam Never done Urine Microalbumin Never done Thanks for coming in today! My medical assistants and I are thankful you have trusted us with your care, and hope that you received EXCELLENT care today! Please do not hesitate to call if you have any questions or concerns at [phone]. You may receive a phone call, text, MYCHART message, or e-mail asking about your care today. We would love to hear your feedback on how EXCELLENT your care wastoday! Wishing you better health, always. Dr. Coy documented in this encounter Ordered Prescriptions Prescription Sig Dispense Quantity Refills Last Filled Start Date End Date lisinopriL (PRINIVIL,ZESTRIL) 2.5 mg tabletIndications: Type 2 diabetes mellitus with hyperglycemia, without long-term current use of insulin (HCC),Hypertension associated with diabetes (HCC) Take 1 tablet (2.5 mg total) by mouth daily 90 tablet 3 10/13/2020 09/13/2021 documented in this encounter Progress Notes * Jocelynn Coy DO - 10/13/2020 2:15 PM CDT Images from the original note were not included. Subjective/Objective Patient ID: Annita Bose is a 80 y.o. female. Chief Complaint Chief Complaint Patient presents with ??? Diabetes ??? Hearing Problem HPI Patient is a newly diagnosed diabetic. She was informed after her last blood draw that she was diabetic. This is her 1st office visit since the information was given to her. She is here with her daughter. She has not started the metformin yet, she reports that she's afraid to take it. She has started to make dietary changes. Diabetes She presents for her initial diabetic visit. She has type 2 diabetes mellitus. Hypoglycemia symptoms include nervousness/anxiousness. Pertinent negatives for hypoglycemia include no dizziness or headaches. There are no diabetic associated symptoms. Pertinent negatives for diabetes include no chest pain. There are no hypoglycemic complications. There are no diabetic complications. Risk factors forcoronary artery disease include hypertension, post-menopausal and sedentary lifestyle. When asked about current treatments, none (patient did not start the metformin that was sent in for her) were reported. She is compliant with treatment some of the time. Her weight is fluctuating minimally. She is following a generally healthy diet. She never participates in exercise. Her home blood glucose trend is decreasing steadily. An LACIE inhibitor/angiotensin II receptor kell is not being taken. Vitals: 10/13/20 1443 BP: 149/65 BP Location: Right arm Patient Position: Sitting Pulse: 70 Resp: 16 Temp: 36.1 ??C (96.9 ??F) TempSrc: Temporal SpO2: 96% Weight: 63.5 kg (139 lb 14.4 oz) Height: 149.9 cm (4' 11.02 ) Body mass index is 28.24 kg/m??. Review of Systems Constitutional: Negative for fever. HENT: Positive for hearing loss. Negative for congestion and sore throat. Eyes: Negative for visual disturbance. Respiratory: Negative for cough and shortness of breath. Cardiovascular: Negative for chest pain, palpitations and leg swelling. Gastrointestinal: Negative for abdominal pain and nausea. Genitourinary: Negative for hematuria. Musculoskeletal: Negative for myalgias. Skin: Negative for rash. Neurological: Negative for dizziness and headaches. Psychiatric/Behavioral: Negative for dysphoric mood. The patient is nervous/anxious. All [...] content normal. Lab Results Component Value Date HGBA1C 7.3 (H) 10/01/2020 Chemistry Component Value Date/Time SODIUM 140 09/26/2020 [...] 11/21/2017 1516 Lab Results Component Value Date CHOL 121 09/26/2020 CHOL 164 03/24/2020 CHOL 170 11/21/2017 Lab Results Component Value Date HDL 60 09/26/2020 HDL 67 03/24/2020 HDL 60 11/21/2017 Lab Results Component Value Date LDLCALC 43 09/26/2020 LDLCALC 79 03/24/2020 LDL 86 11/21/2017 Lab Results Component Value Date TRIG 92 09/26/2020 TRIG 92 03/24/2020 TRIG 141 11/21/2017 Diagnoses and all orders for this visit: Type 2 diabetes mellitus with hyperglycemia, without long-term current use of insulin ([facility]) (Primary) Assessment & Plan: Strongly encouraged patient to take medication as prescribed. Patient agreed. Referral to Diab educator placed. Added LACIE-I for kidney protection. Orders: - Albumin Creatinine Ratio, Urine; Future - lisinopriL (PRINIVIL,ZESTRIL) 2.5 mg tablet; Take 1 tablet (2.5 mg total) by mouth daily - Ambulatory referral to Diabetic Education & Nutrition Services - Ambulatory referral to Podiatry Hypertension associated with diabetes ([facility]) Assessment & Plan: Not at goal of < 130/80. Added Lisinopril. Cont amlodipine. Orders: - lisinopriL (PRINIVIL,ZESTRIL) 2.5 mg tablet; Take 1 tablet (2.5 mg total) by mouth daily Hyperlipidemia associated with type 2 diabetes mellitus ([facility]) Assessment & Plan: LDL at goal of < 70, cont current mgmt. Orders: - Ambulatory referral to Diabetic Education & Nutrition Services Decreased hearing of both ears Assessment & Plan: Referral placed. Orders: - Ambulatory referral to Audiology (ADULT); Future Jocelynn Coy DO documented in this encounter Miscellaneous Notes * Assessment & Plan Note - Jocelynn Coy DO - 10/14/2020 6:22 PM CDT Associated Problem(s): Decreased hearing of both ears Referral placed. * Assessment & Plan Note - Jocelynn Coy DO - 10/14/2020 6:22 PM CDT Associated Problem(s): Hyperlipidemia associated with type 2 diabetes mellitus ([facility]) LDL at goal of < 70, cont current mgmt. * Assessment & Plan Note - Jocelynn Coy DO - 10/14/2020 6:21 PM CDT Associated Problem(s): Hypertension associated with diabetes (HCC) Not at goal of < 130/80. Added Lisinopril. Cont amlodipine. * Assessment & Plan Note - Jocelynn Coy DO - 10/14/2020 6:20 PM CDT Associated Problem(s): Type 2 diabetes mellitus with hyperglycemia, without long-term current use of insulin ([facility]) Strongly encouraged patient to take medication as prescribed. Patient agreed. Referral to Diab educator placed. Added LACIE-I for kidney protection. documented in this encounter Plan of Treatment Scheduled Referrals Name Type Priority Associated Diagnoses Order Schedule Ambulatory referral to Diabetic Education & Nutrition Services Outpatient Referral Routine Type 2 diabetes mellitus with hyperglycemia, without long-term current use of insulin ([facility]) Hyperlipidemia associated with type 2 diabetes mellitus ([facility]) Ordered: 10/13/2020 Ambulatory referral to Podiatry Outpatient Referral Routine Type 2 diabetes mellitus with hyperglycemia, without long-term current use of insulin ([facility]) Ordered: 10/13/2020 documented as of this encounter Results * Albumin Creatinine Ratio, Urine (10/13/2020 4:22 PM CDT) Albumin Ur <12.0 mg/L JOSE Clarke ([place]) Comment: Interpretive Data No reference range established. Current interpretive data was last revised 2018. Testing performed by: [facility], [address] [place] [address], [place]., [address] Creatinine Ur 157.7 mg/dL JOSE MARCELINO ([place]ANE) Comment: Interpretive Data No reference range established. Current interpretive data was last revised 2018. Testing performed by: [facility], [address] [place] [address]., [id number] Albumin Creatinine Ratio, Ur <8 1 - 29 mg/g JOSE MARCELINO ([place]) Comment:Testing performed by : [facility], [address] [place] [address]., [id number] Urine 10/13/2020 4:22 PM CDT 10/14/2020 9:43 AM CDT us Jocelynn Coy DO LAB URINE ORDERABLES Final Result JOSE MARCELINO ([place]) [address] [facility] [place] [address] documented in this encounter Visit Diagnoses Diagnosis Type 2 diabetes mellitus with hyperglycemia, without long-term current use of insulin (HCC)- Primary Hypertension associated with diabetes (HCC) Unspecified essential hypertension Hyperlipidemia associated with type 2 diabetes mellitus (HCC) Decreased hearing of both ears documented in this encounter Care Teams Manager Of Pmo Relationship Specialty Start Date End Date Jocelynn Coy DO PCP - General Family Medicine 06/10/17 09/02/23 documented as of this encounter
--- OUTSIDE RECORDS SUMMARY | 2024-03-31 14:23 | XMS_ITS | Encounter Summary ---
Author Organization [facility] Address [address] [place] [address] Care Team Providers Care Negative Assembler Name Role Phone Jocleynn Coy DO Primary Care Provider [phone] Reason for Visit * Reason Comments Hypertension f/u Hyperlipidemia Anxiety Encounter Details Date Type Department Care Team (Late st Contact Info) Description 09/03/2018 11:45 AM CDT Office Visit [facility] [address] [place] [phone] Jocelynn Coy DO [address] [facility] [address] [address] Essential hypertension (Primary Dx); Pure hypercholesterolemia; Generalized anxiety disorder; BMI 29.0-29.9,adult Social History Tobacco Use Types Packs/Day Years Used Date Smoking Tobacco: Never Smokeless Tobacco: Never Alcohol Use Standard Drinks/Week Comments No 0 (1 standard drink = 0.6 oz pur e alcohol) Comments Unknown Sex and Gender Information Value Date Recorded Sex Assigned at Not on file Legal Sex Female 8:45 PM RESIDENT CARE COORDINATOR Gender Identity Female 04/25/2021 2:46 PM RESIDENT CARE COORDINATOR Sexual Orientation Straight 04/25/2021 2: 46 PM RESIDENT CARE COORDINATOR documented as of this encounter Last Filed Vital Signs Vital Sign Reading Time Taken Comments Blood Pressure 138/77 09/03/2018 11:50 AM CDT Pulse 68 09/03/2018 11:50 AM CDT Temperature 36.9 ??C (98.5 ??F) 09/03/2018 11:50 AM C DT Respiratory Rate 18 09/03/2018 11:50 AM CDT Oxygen Saturation 96% 09/03/2018 11:50 AM CDT Inhaled Oxygen Concentration - - Weight 66.2 kg (146 lb) 09/03/2018 11:50 AM CDT Height 149.9 cm (4' 11 ) 09/03/2018 11:50 AM CDT Body Mass Index 29.49 09/03/2018 11:50 AM CDT documented in this encounter Patient Instructions * Patient Instructions* Jocelynn Coy, DO - 09/03/2018 11:45 AM CDT Images from the original note were not included. 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 Your BP is the force of your blood moving against the phipps of your arteries. Normal BP is less than 120/80. Prehypertension is between 120/80 and 139/89. Hypertension is 140/90 or higher. Hypertension causes your heart to work much harder than normal. Thiscan damage your heart. Your blood pressure will increase as you get older. However, hypertension isnot a normal part of aging. You can control hypertension with a healthy lifestyle or medicines. A controlled blood pressure helps protect your organs, such as your heart, lungs, brain, and kidneys. Signs and symptoms: You may have no signs or symptoms, or you may have any of the following: ?? Headache ?? Blurred vision or changes in your vision ?? Chest pain ?? Dizziness or weakness ?? Trouble breathing ?? Nosebleeds Call 911 or have someone else call for any of the following: ?? You have discomfort in your chest that feels like squeezing, pressure, fullness, or pain. ?? You become confused or have difficulty speaking. ?? You suddenly feel lightheaded or have trouble breathing. ?? You have pain or discomfort in your back, neck, jaw, stomach, or arm. ?? You faint or lose consciousness. Seek care immediately if: ?? You have a severe headache or vision loss. ?? You have weakness in an arm or leg. ?? You get dizzy and fall. Contact your healthcare provider if: ?? You feel faint, dizzy, confused, or drowsy. ?? You have been taking your BP medicine and your BP is still higher than your healthcare provider says it should be. ?? Your blood pressure is lower than your healthcare provider said it should be. ?? You have questions or concerns about your condition or care. Treatment for hypertension may depend on other medical conditions and the cause of hypertension. Ask your healthcare provider what your blood pressure goal is. Your healthcare provider will recommendlifestyle changes to lower your BP. You may also need the following medicines: ?? Medicine may be used to help lower your BP. You may need more than 1 type of medicine. ?? Diuretics help decrease extra fluid that collects in your body. This will help lower your BP. You may urinate more often while you take this medicine. What you need to know about BP medicine: ?? Take your medicine at the same time every day. ?? Do not stop taking your medicine if your BP is at the target goal. A BP at the target goal meansthat the medicine is working correctly. ?? Know the name and dose of your medicine. ?? Refill your medicine before you run out. ?? Blood pressure medicine can make you feel dizzy. Stand up slowly from a sitting or lying position. This will help prevent dizziness or your risk of falls. ?? Ask your healthcare provider if you should take your blood pressure medicine on the day of a surgery or procedure. Manage hypertension: ?? Check your BP at home 2 times a day or as directed. Take your BP at the same times each day, such as morning and evening. Take 2 readings each time. Ask your healthcare provider for more directions. Keep a record of your BP readings and bring it to your follow-up visits. Ask your healthcare provider what your BP should be. ?? Limit sodium as directed. Too much sodium can affect your fluid balance and make it hard to control your BP. Check labels to find low-sodium or [id number]-[id number] foods. Some low-sodium foods use potassium salts [...] Exercise to maintain a healthy weight. Exercise will also help decrease your BP. Exercise for 30minutes a day on most days of the week. Start with 10 minutes at a time. Examples of exercise include brisk walking or riding a stationary bike. Talk to your healthcare provider before you start an exercise plan. He or she can make sure the exercise plan is safe for you. ?? Decrease stress. This can help lower your BP. Learn ways to relax, such as deep breathing or listening to music. Get plenty of sleep every night. A lack of sleep can increase your stress level. ?? Limit or do not drink alcohol. Ask your healthcare provider if it is safe for you to drink alcohol. Also ask how much is safe for you to drink. ?? Do not smoke. Nicotine and other chemicals in cigarettes and cigars can increase your BP and also cause lung damage. Ask your healthcare provider for information if you currently smoke and need help to quit. E-cigarettes or smokeless tobacco still contain nicotine. Talk to your healthcare provider before you use these products. ?? Manage any other health conditions you have. Health conditions such as diabetes can increase your risk for hypertension. Follow your healthcare provider's instructions and take all your medicines as directed. Follow up with your healthcare provider as directed: You will need to return to have your BP checked. Write down your questions so you remember to ask them during your visits. ?? 2017 [employer] Information is for End User's use only and may not be sold, redistributed or otherwise used for commercial purposes. All illustrations and images included in CareNotes?? are the copyrighted property of [employer] or [employer]. The above information is an nursing home aide only. It is not intended as medical advice for individual conditions or treatments. Talk to your doctor, nurse or pharmacist before following any medical regimen to see if it is safe and effective for you. documented in this encounter Progress Notes * Jocelynn Coy DO - 09/03/2018 11:45 AM CDT Images from the original note were not included. Subjective/Objective Patient ID: Annita Bose is a 77 y.o. female. Chief Complaint Chief Complaint Patient presents with ??? Hypertension f/u ??? Hyperlipidemia ??? Anxiety HPI Patient RTC today for f/u. She is dealing with a lot of stress, her is currently in the hospital, and according to the patient, her brother is on his bed. She denies any s/e from current medications. She needs lab work today. Vitals: 09/03/18 1150 BP: 138/77 BP Location: Left arm Patient Position: Sitting Pulse: 68 Resp: 18 Temp: 36.9 ??C (98.5 ??F) SpO2: 96% Weight: 66.2 kg (146 lb) Height: 149.9 cm (4' 11 ) Body mass index is 29.49 kg/m??. Review of Systems Constitutional: Negative for unexpected weight change. HENT: Negative. Eyes: Negative for visual disturbance. Respiratory: Negative for cough, chest tightness, shortness of breath and wheezing. Cardiovascular: Negative for chest pain, palpitations and leg swelling. Gastrointestinal: Negative for abdominal pain and nausea. Genitourinary: Negative for hematuria. Musculoskeletal: Negative for myalgias. Skin: Negative for rash. Neurological: Negative for dizziness and headaches. Psychiatric/Behavioral: Negative for confusion. All other systems reviewed and are negative. Physical Exam Constitutional: She is oriented to person, place, and time. She appears well- developed and well-nourished. HENT: Head: Normocephalic and atraumatic. Mouth/Throat: Oropharynx is clear and moist and mucous membranes are normal. Eyes: Conjunctivae and EOM are normal. No scleral icterus. Neck: Normal range of motion. Neck supple. No thyromegaly present. Cardiovascular: Normal rate, regular rhythm and normal heart sounds. No murmur heard. Pulmonary/Chest: Effort normal and breath sounds normal. She has no wheezes. Abdominal: Soft. Bowel sounds are normal. There is no tenderness. Musculoskeletal: She exhibits no edema. Neurological: She is alert and oriented to person, place, and time. Skin: Skin is warm and dry. No rash noted. No erythema. Psychiatric: She has a normal mood and affect. Her behavior is normal. Thought content normal. Nursing note and vitals reviewed. Diagnoses and all orders for this visit: Essential hypertension (Primary) Assessment & Plan: Hypertension is improving with treatment. Continue current treatment regimen. Dietary sodium restriction. Weight loss. Regular aerobic exercise. Continue current medications. Ambulatory blood pressure monitoring. Blood pressure will be reassessed at the next regular appointment. Amlodipine 10 mg qd Orders: - Comprehensive metabolic panel; Future - Lipid panel; Future - CBC with auto differential; Future Pure hypercholesterolemia Assessment & Plan: Lipid abnormalities are improving with treatment. Nutritional counseling was provided. and Pharmacotherapy as ordered. Lipids will be reassessed 4 months. Atorvastatin 20 mg qd Orders: - Comprehensive metabolic panel; Future - Lipid panel; Future Generalized anxiety disorder Assessment & Plan: Psychological condition is improving with treatment. Continue current treatment regimen. Regular aerobic exercise. Psychological condition will be reassessed at the next regular appointment. Lorazepam 0.5 mg q6h prn BMI 29.0-29.9,adult Dr. Jocelynn Coy documented in this encounter Miscellaneous Notes * Assessment & Plan Note - Jocelynn Coy DO - 09/03/2018 5:29 PM CDT Associated Problem(s): Generalized anxiety disorder Psychological condition is improving with treatment. Continue current treatment regimen. Regular aerobic exercise. Psychological condition will be reassessed at the next regular appointment. Lorazepam 0.5 mg q6h prn * Assessment & Plan Note - Jocelynn Coy DO - 09/03/2018 5:28 PM CDT Associated Problem(s): Hyperlipidemia associated with type 2 diabetes mellitus (HCC) Lipid abnormalities are improving with treatment. Nutritional counseling was provided. and Pharmacotherapy as ordered. Lipids will be reassessed 4 months. Atorvastatin 20 mg qd * Assessment & Plan Note - Jocelynn Coy DO - 09/03/2018 5:28 PM CDT Associated Problem(s): Hypertension associated with diabetes (HCC) Hypertension is improving with treatment. Continue current treatment regimen. Dietary sodium restriction. Weight loss. Regular aerobic exercise. Continue current medications. Ambulatory blood pressure monitoring. Blood pressure will be reassessed at the next regular appointment. Amlodipine 10 mg qd documented in this encounter Plan of Treatment Not on file documented as of this encounter Visit Diagnoses Diagnosis Essential hypertension- Primary Unspecified essential hypertension Pure hypercholesterolemia Generalized anxiety disorder BMI 29.0-29.9,adult documented in this encounter Care Teams Negative Assembler Relationship Specialty Start Date End Date Jocelynn Coy DO PCP - General Family Medicine 06/10/17 09/02/23 documented as of this encounter
--- OUTSIDE RECORDS SUMMARY | 2024-03-31 14:23 | XMS_ITS | Encounter Summary ---
Author Organization [facility] Address [address] [place] [address] Care Team Providers Care Microsoft Bi Architect Name Role Phone Jocelynn Coy DO Primary Care Provider [phone]- [phone] Reason for Visit * Reason Comments Hypertension f/u Hyperlipidemia Anxiety Encounter Details Date Type Department Care Team (Late st Contact Info) Description 08/06/2018 12:45 PM CDT Office Visit [facility] [address] [place] [phone] Jocelynn Coy DO [address] [place] [address] [place] [id number] Essential hypertension (Primary Dx); Pure hypercholesterolemia; Anxiety Social History Tobacco Use Types Packs/Day Years Used Date Smoking Tobacco: Never Smokeless Tobacco: Never Alcohol Use Standard Drinks/Week Comments No 0 (1 standard drink = 0.6 oz pur e alcohol) Comments Unknown Sex and Gender Information Value Date Recorded Sex Assigned at Not on file Legal Sex Female 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69 08/06/2018 12:56 PM CDT documented in this encounter Patient Instructions * Patient Instructions* Jocelynn Coy, - 08/06/2018 12:45 PM CDT Images from the original note were not included. 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 Your [...] balance. Check labels to find low-sodium or qf-[id number] foods. Some low-sodium foods use potassium salts [...] ask them during your visits. ?? 2017 [employer] Information is for End User's use only and may not be sold, redistributed or otherwise used for commercial purposes. All illustrations and images included in CareNotes?? are the copyrighted property of [employer], [employer]. or [employer]. The above information is an legal aide only. It is not intended as medical advice for individual conditions or treatments. Talk to your doctor, nurse or pharmacist before following any medical regimen to see if it is safe and effective for you. documented in this encounter Ordered Prescriptions Prescription Sig Dispense Quantity Refills Last Filled Start Date End Date amLODIPine (NORVASC) 10 mg tabletIndications: Essential hypertension Take 1 tablet (10 mg total) by mouth daily 90 tablet 3 08/06/2018 0 LORazepam (ATIVAN) 0.5 mg tabletIndications: Anxiety Take 1 tablet (0.5 mg total) by mouth every 6 (six) hours as needed for anxiety 30 tablet 5 08/06/2018 9 documented in this encounter Progress Notes * Jocelynn Coy DO - 08/06/2018 12:45 PM CDT Subjective/Objective Patient ID: Annita Bose is a 77 y.o. female. Chief Complaint Chief Complaint Patient presents with ??? Hypertension f/u ??? Hyperlipidemia ??? Anxiety HPI Patient RTC today for routine f/u of chronic conditions. She is without complaints. She denies any side-effects from her current medications. Hypertension This is a chronic problem. The current episode started more than 1 year ago. The problem has been gradually improving since onset. The problem is controlled. Associated symptoms include anxiety. Pertinent negatives include no chest pain, headaches, palpitations, peripheral edema or shortness of breath. Risk factors for coronary artery disease include post-menopausal state and sedentary lifestyle.Past treatments include calcium channel blockers. The current treatment provides significant improvement. Compliance problems include exercise. There is no history of angina. Hyperlipidemia This is a chronic problem. The current episode started more than 1 year ago. The problem is controlled. Recent lipid tests were reviewed and are normal. Pertinent negatives include no chest pain, myalgias or shortness of breath. Current antihyperlipidemic treatment includes statins. The current treatment provides moderate improvement of lipids. Compliance problems include adherence to exercise. Risk factors for coronary artery disease include hypertension, post-menopausal and a sedentary lifestyle. Anxiety Presents for follow-up visit. Symptoms include nervous/anxious behavior. Patient reports no chest pain, confusion, dizziness, palpitations or shortness of breath. Symptoms occur occasionally. The quality of sleep is fair. Nighttime awakenings: occasional. Compliance with medications is 76-100%. Vitals: 08/06/18 1256 BP: 136/72 BP Location: Left arm Patient Position: Sitting Pulse: 66 Resp: 18 Temp: 36.5 ??C (97.7 ??F) SpO2: 97% Weight: 66.7 kg (147 lb) Height: 149.9 cm (4' 11 ) Body mass index is 29.69 kg/m??. Review of Systems Constitutional: Negative for fatigue. HENT: Negative for trouble swallowing. Respiratory: Negative for chest tightness and shortness of breath. Cardiovascular: Negative for chest pain, palpitations and leg swelling. Gastrointestinal: Negative for abdominal pain. Genitourinary: Negative for hematuria. Musculoskeletal: Negative for myalgias. Skin: Negative for rash. Neurological: Negative for dizziness, tremors, weakness and headaches. Psychiatric/Behavioral: Negative for confusion and sleep disturbance. The patient is nervous/anxious. All other systems [...] and oriented to person, place, and time. Coordination normal. Skin: Skin is warm and dry. No rash noted. No erythema. Psychiatric: She has a normal mood and affect. Her behavior is normal. Thought content normal. Nursing note and vitals reviewed. Lab Results Component Value Date WBC 6.0 11/21/2017 HGB 13.2 11/21/2017 HCT 40.7 11/21/2017 MCV 80.8 11/21/2017 LABPLAT 263 11/21/2017 Chemistry Component Value Date/Time SODIUM 139 11/21/2017 1516 POTASSIUM 4.2 11/21/2017 1516 CHLORIDE 107 11/21/2017 1516 CO2 27 11/21/2017 1516 BUNSER 14 11/21/2017 1516 CREATININE 0.68 11/21/2017 1516 GLUCOSE 97 11/21/2017 1516 Component Value Date/Time CALCIUM 9.5 11/21/2017 1516 ALKPHOS 76 11/21/2017 1516 AST 15 11/21/2017 1516 ALT 13 11/21/2017 1516 BILITOT 0.3 11/21/2017 1516 Lab Results Component Value Date CHOL 170 11/21/2017 Lab Results Component Value Date HDL 60 11/21/2017 Lab Results Component Value Date LDL 86 11/21/2017 Lab Results Component Value Date TRIG 141 11/21/2017 Diagnoses and all orders for this visit: Essential hypertension (Primary) Assessment & Plan: Hypertension is improving with treatment. Continue current treatment regimen. Dietary sodium restriction. Weight loss. Regular aerobic exercise. Continue current medications. Ambulatory blood pressure monitoring. Blood pressure will be reassessed at the next regular appointment. Orders: - amLODIPine (NORVASC) 10 mg tablet; Take 1 tablet (10 mg total) by mouth daily Pure hypercholesterolemia Assessment & Plan: Lipid abnormalities are improving with treatment. Nutritional counseling was provided. and Pharmacotherapy as ordered. Lipids will be reassessed 4 months. lipitor 10 mg qhs Anxiety Assessment & Plan: Stable. Cont. Current meds. Orders: - LORazepam (ATIVAN) 0.5 mg tablet; Take 1 tablet (0.5 mg total) by mouth every 6 (six) hours as needed for anxiety documented in this encounter Miscellaneous Notes * Assessment & Plan Note - Jocelynn Coy DO - 08/06/2018 6:37 PM CDT Associated Problem(s): Generalized anxiety disorder Stable. Cont. Current meds. * Assessment & Plan Note - Jocelynn Coy DO - 08/06/2018 6:36 PM CDT Associated Problem(s): Hyperlipidemia associated with type 2 diabetes mellitus (HCC) Lipid abnormalities are improving with treatment. Nutritional counseling was provided. and Pharmacotherapy as ordered. Lipids will be reassessed 4 months. lipitor 10 mg qhs * Assessment & Plan Note - Jocelynn Coy DO - 08/06/2018 6:35 PM CDT Associated Problem(s): Hypertension associated with diabetes (HCC) Hypertension is improving with treatment. Continue current treatment regimen. Dietary sodium restriction. Weight loss. Regular aerobic exercise. Continue current medications. Ambulatory blood pressure monitoring. Blood pressure will be reassessed at the next regular appointment. documented in this encounter Plan of Treatment Not on file documented as of this encounter Visit Diagnoses Diagnosis Essential hypertension- Primary Unspecified essential hypertension Pure hypercholesterolemia Anxiety Anxiety state, unspecified documented in this encounter Discontinued Medications Medication Sig Discontinue Reason Start Date End Da te LORazepam (ATIVAN) 0.5 mg tabletIndications:Anxiety Take 1 tablet (0.5 mg total) by mouth every 6 (six) hours as needed for anxiety. Reorder 12/06/2017 08/06/2018 amLODIPine (NORVASC) 10 mg tabletIndications:Essenti al hypertension TAKE 1 TABLET (10 MG TOTAL) BY MOUTH DAILY. Reorder 06/17/2018 08/06/2018 documented as of this encounter Care Teams Microsoft Bi Architect Relationship Specialty Start Date End Date Jocelynn Coy DO PCP - General Family Medicine 06/10/17 09/02/23 documented as of this encounter
--- OUTSIDE RECORDS SUMMARY | 2024-03-31 14:23 | XMS_ITS | Encounter Summary ---
Author Organization [facility] Healthcare Address [address] [place] [address] Care Team Providers Care Agriculture Inspector Name Role Phone Jocelynn Coy DO Primary Care Provider [phone] Encounter Details Date Type Department Care Team (Late st Contact Info) Description 03/24/2020 2:55 PM FIRST COAT OPERATOR Lab [address] Jocelynn Coy DO [address] [place] [address] Essential hypertension; Pure hypercholesterolemia Discharge Disposition: Discharge [...] on file Legal Sex Female 8:45 PM FIRST COAT OPERATOR Gender Identity Female 04/25/2021 2:46 PM FIRST COAT OPERATOR Sexual Orientation Straight 04/25/2021 2: 46 PM FIRST COAT OPERATOR documented as of this encounter Discharge Disposition Disposition Code Departure Means Destination Discharge to home or self care documented in this encounter Plan of Treatment Not on file documented as of this encounter Procedures Procedure Name Priority Date/Time Associated Diagnosis Comments EGFR Routine 03/24/2020 2:52 PM FIRST COAT OPERATOR Essential hypertension Pure hypercholesterolemia DIFFERENTIAL AUTO Routine 03/24/2020 2:5 2 PM FIRST COAT OPERATOR Essential hypertension URINALYSIS AND REFLEX TO MICROSCOPIC Routine 03/24/2020 2:52 PM FIRST COAT OPERATOR Essential hypertension CBC WITH AUTO DIFFERENTIAL Routine 03/24/2020 2:52 PM FIRST COAT OPERATOR Essential hypertension URINALYSIS, MICROSCOPIC ONLY Routine 03/24/2020 2:52 PM FIRST COAT OPERATOR Essential hypertension LIPID PANEL Routine 03/24/2020 2:52 PM FIRST COAT OPERATOR Essential hypertension Pure hypercholesterolemia COMPREHENSIVE METABOLIC PANEL Routine 03/24/2020 2:52 PM FIRST COAT OPERATOR Essential hypertension Pure hypercholesterolemia documented in this encounter Results * eGFR (03/24/2020 2:52 PM FIRST COAT OPERATOR) eGFR 67 mL/min/1.7 3 m2 JOSE MARCELINO (JANE) Comment: Interpretive Data Reference Interval Normal ?>/= 90 mL/min/1.73m2 Mildly decreased* ? 60 - 89 mL/min/1.73m2 Mildly to moderately decreased ?45 - 59 mL/min/1.73m2 Moderately to severely decreased ??30 - 44 mL/min/1.73m2 Severely decreased ?15 - 29 mL/min/1.73m2 Kidney Failure ?< 15 ??mL/min/1.73m2 *Relative to young adult level If -[place]ue[place] multiply value by 1.16. Estimated glomerular filtration rate is determined by [...] 70. Current interpretive data was last reviewed 2015. Blood specimen (specimen) 03/24/2020 2:52 PM FIRST COAT OPERATOR 03/24/2020 5:06 PM FIRST COAT OPERATOR us Jocelynn Coy DO LAB BLOOD ORDERABLES Final Result Performing Organization Address City/[facility]/ZIP Co de Phone Number JOSE MARCELINO (JANE) 1 [facility] [place] [address] * (ABNORMAL) Urinalysis, microscopic only (03/24/2020 2:52 PM FIRST COAT OPERATOR) WBC, ur 0-5 0 - 5 /HPF [facility] ([place]NAE) RBC, ur 0-2 0 - 2 /HPF [facility] ([place]ANE) Epithelial cells, squamous, ur 1-5 0 - 5 /HPF [facility] (JANE) Mucous, ur Present(A) [facility] ([place]) Urine 03/24/2020 2:52 PM FIRST COAT OPERATOR 03/24/2020 5:06 PM FIRST COAT OPERATOR us Jocelynn Coy DO LAB URINE ORDERABLES Final Result Performing Organization Address [facility] Co de Phone Number JOSE MARCELINO (JANE) 1 [facility] [place] [address] * Differential, auto (03/24/2020 2:52 PM FIRST COAT OPERATOR) Neutrophil abs 2.5 1.7 - 6.5 K/cumm [facility] ([place]) Imm gran abs 0.0 0.0 - 0.1 K/cumm [facility] ([place]) Lymphocyte abs 2.7 0.8 - 3.3 K/cumm [facility] ([place]) Monocyte abs 0.5 0.2 - 0.8 K/cumm [facility] ([place]ANE) Eosinophil abs 0.1 0.0 - 0.5 K/cumm [facility] ([place]ANE) Basophil abs 0.0 0.0 - 0.1 K/cumm [facility] ([place]ANE) Neutrophil pct 42.8 % [facility] R [facility] (JANE) Comment: Interpretive Data Percent cell count reference ranges are not reported, since discordance with absolute values may lead to misinterpretation of CBC data. Current Interpretive Data was last revised on 2017. Imm gran pct 0.2 % [facility] (JANE) Comment: Interpretive Data Percent cell count reference ranges are not reported, since discordance with absolute values may lead to misinterpretation of CBC data. Current Interpretive Data was last revised on 2017. Lymphocyte pct 45.8 % CERNE R CHARI (JANE) Comment: Interpretive Data Percent cell count reference ranges are not reported, since discordance with absolute values may lead to misinterpretation of CBC data. Current Interpretive Data was last revised on 2017. Monocyte pct 9.0 % JOSE MARCELINO (JANE) Comment: Interpretive Data Percent cell count reference ranges are not reported, since discordance with absolute values may lead to misinterpretation of CBC data. Current Interpretive Data was last revised on 2017. Eosinophil pct 1.9 % PILARNE R CHARI (JANE) Comment: Interpretive Data Percent cell count reference ranges are not reported, since discordance with absolute values may lead to misinterpretation of CBC data. Current Interpretive Data was last revised on 2017. Basophil pct 0.3 % JOSE MARCELINO (JANE) Comment: Interpretive Data Percent cell count reference ranges are not reported, since discordance with absolute values may lead to misinterpretation of CBC data. Current Interpretive Data was last revised on 2017. Blood specimen (specimen) 03/24/2020 2:52 PM FIRST COAT OPERATOR 03/24/2020 5:06 PM FIRST COAT OPERATOR us Jocelynn Coy DO LAB BLOOD ORDERABLES Final Result JOSE MARCELINO (JANE) 1 [facility] Department of Laboratories [place], [place] [id number] * Lipid panel (03/24/2020 2:52 PM FIRST COAT OPERATOR) Cholesterol 164 30 - 199 mg/dL JOSE MARCELINO (JANE) [...] on 2017. Triglycerides 92 <=149 mg/dL JOSE LIRIANO) Comment: Interpretive Data Ages [...] (JANE) Blood specimen (specimen) 03/24/2020 2:52 PM FIRST COAT OPERATOR 03/24/2020 5:06 PM FIRST COAT OPERATOR Jocelynn Coy DO LAB BLOOD ORDERABLES Final Result [facility] (JANE) 1 [facility] [place] [address] * (ABNORMAL) CBC with auto differential (03/24/2020 2:52 PM FIRST COAT OPERATOR) WBC 5.8 3.8 - 9.9 K/cumm CERNER [...] (JANE) Blood specimen (specimen) 03/24/2020 2:52 PM FIRST COAT OPERATOR 03/24/2020 5:06 PM FIRST COAT OPERATOR us Jocelynn Coy DO LAB BLOOD ORDERABLES Final Result [facility] (JANE) 1 [facility] [place] [address] * Comprehensive metabolic panel (03/24/2020 2:52 PM FIRST COAT OPERATOR) Sodium 137 135 - 145 mmol/L CERNER [...] (JANE) Blood specimen (specimen) 03/24/2020 2:52 PM FIRST COAT OPERATOR 03/24/2020 5:06 PM FIRST COAT OPERATOR us Jocelynn Coy DO LAB BLOOD ORDERABLES Final Result [facility] (JANE) 1 [facility] Department [place] [address] * (ABNORMAL) Urinalysis reflex to microscopic (03/24/2020 2:52 PM FIRST COAT OPERATOR) Color, ur Yellow Yellow [facility] (JANE) Clarity, ur Clear Clear [facility] ([place]ANE) Specific gravity, ur 1.016 1.010 - 1.025 [...] UA will be performed. [facility] ([place]ANE) Urine 03/24/2020 2:52 PM FIRST COAT OPERATOR 03/24/2020 5:06 PM FIRST COAT OPERATOR Narrative [facility] (JANE) - 03/24/2020 5:21 PM FIRST COAT OPERATOR ?? Urine pH is affected by diet, medications, systemic acid-base disturbances, and renal tubular function. ??pH may affect urinary stone formation. ??For example, urine pH below 6.0 may help reduce the tendency for calcium phosphate stones and pH greater than 6.0 may reduce the tendency for uric acid stone formation. Source: [employer]. Last revised 04-25-2017 us Jocelynn Coy DO LAB URINE ORDERABLES Final Result JOSE MARCELINO (JANE) 1 [facility] Department [place] [address] documented in this encounter Visit Diagnoses Diagnosis Essential hypertension Unspecified essential hypertension Pure hypercholesterolemia documented in this encounter Care Teams Agriculture Inspector Relationship Specialty Start Date End Date Jocelynn Coy DO PCP - General Family Medicine 06/10/17 09/02/23 documented as of this encounter
--- OUTSIDE RECORDS SUMMARY | 2024-03-31 14:24 | XMS_ITS | Encounter Summary ---
Author Organization [facility] Healthcare Address [address] [place] [id number] Care Team Providers Care Slope Tender Name Role Phone Unavailable Primary Care Provider Unavailabl e Encounter Details Date Type Department Care Team (Late st Contact Info) Description 08/10/2014 1:44 PM CDT - 08/10/2014 11:59 PM CDT Hospital Encounter [facility] Palpitations; Acute reaction to stress Social History Tobacco Use Types Packs/Day Years Used Date Smoking Tobacco: Never Assessed Comments Unknown Sex and Gender Information Value Date Recorded Sex Assigned at Not on file Legal Sex Female 8:45 PM MACHINE MOLDER SQUEEZE Gender Identity Female 04/25/2021 2:46 PM MACHINE MOLDER SQUEEZE Sexual Orientation Straight 04/25/2021 2: 46 PM MACHINE MOLDER SQUEEZE documented as of this encounter Plan of Treatment Not on file documented as of this encounter Visit Diagnoses Diagnosis Palpitations Acute reaction to stress Unspecified acute reaction to stress documented in this encounter
--- OUTSIDE RECORDS SUMMARY | 2024-03-31 14:24 | XMS_ITS | Encounter Summary ---
Author Organization [facility] Address [address] [place] [address] Care Team Providers Care Software Reliability Engineer Name Role Phone No, Physician Primary Care Provider [phone] Reason for Visit * Reason Comments Hypertension new patient Hyperlipidemia Encounter Details Date Type Department Care Team (Late st Contact Info) Description 06/07/2017 12:00 PM LOOM STOP CHECKER Office Visit [facility] [address] [place] [phone] Jocelynn Coy, DO [address] [facility] [address] [address] Essential hypertension (Primary Dx); Pure hypercholesterolemia; Anxiety Social History Tobacco Use Types Packs/Day Years Used Date Smoking Tobacco: Never Smokeless Tobacco: Never Alcohol Use Standard Drinks/Week Comments No 0 (1 standard drink = 0.6 oz pur e alcohol) Comments Unknown Sex and Gender Information Value Date Recorded Sex Assigned at Not on file Legal Sex Female 8:45 PM LOOM STOP CHECKER Gender Identity Female 04/25/2021 2:46 PM LOOM STOP CHECKER Sexual Orientation Straight 04/25/2021 2: 46 PM LOOM STOP CHECKER documented as of this encounter Last Filed Vital Signs Vital Sign Reading Time Taken Comments Blood Pressure 132/71 06/07/2017 12:10 PM LOOM STOP CHECKER Pulse 79 06/07/2017 12:10 PM LOOM STOP CHECKER Temperature 36.6 ??C (97.9 ??F) 06/07/2017 12:[address] Respiratory Rate 16 06/07/2017 12:10 PM LOOM STOP CHECKER Oxygen Saturation 98% 06/07/2017 12:10 PM LOOM STOP CHECKER Inhaled Oxygen Concentration - - Weight 72 kg (158 lb 11.2 oz) 06/07/2017 12:10 P M LOOM STOP CHECKER Height 152.4 cm (5') 06/07/2017 12:10 PM LOOM STOP CHECKER Body Mass Index 30.99 06/07/2017 12:10 PM LOOM STOP CHECKER documented in this encounter Patient Instructions * Patient Instructions* Jocelynn Coy, DO - 06/07/2017 12:33 PM LOOM STOP CHECKER Images from the original note were not included. Patient Education Chronic Hypertension SURGERY AID: Chronic hypertension is a long-term condition in which your blood pressure (BP) is higher than normal. Your BP is the force of your blood moving against the phipps of your arteries. Hypertension is a BP of 140/90 or higher. Common symptoms include the following: ?? Headache ?? Blurred vision ?? Chest pain ?? Dizziness or weakness ?? Trouble breathing ?? Nosebleeds Seek care immediately if: ?? You have a severe headache or vision loss. ?? You have weakness in an arm or leg. ?? You become confused or have difficulty speaking. ?? You have discomfort in your chest that feels like squeezing, pressure, fullness, or pain. ?? You suddenly feel lightheaded or have trouble breathing. ?? You have pain or discomfort in your back, neck, jaw, stomach, or arm. Contact your healthcare provider if: ?? You feel faint, dizzy, confused, or drowsy. ?? You have been taking your BP medicine and your BP is still higher than your healthcare provider says it should be. ?? You have questions or concerns about your condition or care. Treatment for chronic hypertension may include medicine to lower your BP. You may also need to makelifestyle changes. Take your medicine exactly as directed. Manage chronic hypertension: ?? Take your BP at home. [...] and bring it to your follow-up visits. ?? Eat less sodium (salt). Do not add sodium to your food. Limit foods that are high in sodium, such as canned foods, potato chips, and cold cuts. Your healthcare provider may suggest that you followthe DASH Eating Plan. The plan is low in sodium, unhealthy fats, and total fat. It is high in potassium, calcium, and fiber. ?? Exercise regularly. Exercise at least 30 minutes per day, on most days of the week. This will help decrease your BP. Ask your healthcare provider about the best exercise plan for you. ?? Limit alcohol. Women should [...] to ask them during your visits. ?? 2016 [employer]. Information is for End User's use only and may not be sold, redistributed or otherwise used for commercial purposes. All illustrations and images included in CareNotes?? are the copyrighted property of [employer] or [employer]. The above information is an aids social worker only. It is not intended as medical advice for individual conditions or treatments. Talk to your doctor, nurse or pharmacist before following any medical regimen to see if it is safe and effective for you. STOP CHECKER STOP CHECKER documented in this encounter Ordered Prescriptions Prescription Sig Dispense Quantity Refills Last Filled Start Date End Date amLODIPine (NORVASC) 10 mg tabletIndications:Essenti al hypertension Take 1 tablet (10 mg total) by mouth daily. 90 tablet 3 8 06/18/19 19 LORazepam (ATIVAN) 0.5 mg tabletIndications:Anxiety Take 1 tablet (0.5 mg total) by mouth every 6 (six) hours as needed for anxiety. 30 tablet 5 8 12/07/19 18 atorvastatin (LIPITOR) 20 mg tabletIndications:Pure hypercholesterolemia Take 1 tablet (20 mg total) by mouth daily. 90 tablet 3 8 06/18/19 19 documented in this encounter Progress Notes * Jocelynn Coy, DO - 06/07/2017 12:00 PM CST Subjective/Objective Patient ID: Annita Bose is a 76 y.o. female. Chief Complaint Chief Complaint Patient presents with ??? Hypertension new patient ??? Hyperlipidemia HPI New patient today, needs to establish care. The patient has multiple chronic conditions and will need Rx refills and possibly blood work. Hypertension This is a chronic problem. The current episode started more than 1 year ago. The problem is unchanged. The problem is controlled. Pertinent negatives include no chest pain, headaches, palpitations, peripheral edema or shortness of breath. Risk factors for coronary artery disease include post-menopausal state and sedentary lifestyle. Past treatments include calcium channel blockers. The current treatment provides significant improvement. Compliance problems include exercise. Hyperlipidemia This is a chronic problem. The current episode started more than 1 year ago. Pertinent negatives include no chest pain or shortness of breath. Current antihyperlipidemic treatment includes statins. Compliance problems include adherence to exercise. Risk factors for coronary artery disease include hy pertension, dyslipidemia and post-menopausal. Vitals: 06/07/17 1210 BP: 132/71 BP Location: Left arm Patient Position: Sitting Pulse: 79 Resp: 16 Temp: 36.6 ??C (97.9 ??F) TempSrc: Oral SpO2: 98% Weight: 72 kg (158 lb 11.2 oz) Height: 152.4 cm (5') Body mass index is 30.99 kg/m??. Review of Systems Constitutional: Negative for fatigue and fever. Eyes: Negative for visual disturbance. Respiratory: Negative for chest tightness and shortness of breath. Cardiovascular: Negative for chest pain, palpitations and leg swelling. Gastrointestinal: Negative for abdominal pain. Genitourinary: Negative for hematuria. Skin: Negative for rash. Neurological: Negative for dizziness and headaches. Psychiatric/Behavioral: Negative for confusion and sleep disturbance. The patient is nervous/anxious. All other systems reviewed and are negative. Physical Exam Constitutional: She is oriented to person, place, and time. She appears well- developed and well-nourished. No distress. HENT: Head: Normocephalic and atraumatic. Mouth/Throat: Oropharynx is clear and moist and mucous membranes are normal. No oropharyngeal exudate. Eyes: Conjunctivae and EOM are normal. No scleral icterus. Neck: Normal range of motion. Neck supple. No thyromegaly present. Cardiovascular: Normal rate, regular rhythm and normal heart sounds. No murmur heard. Pulmonary/Chest: Effort normal and breath sounds normal. No respiratory distress. She has no wheezes. Abdominal: Soft. Bowel sounds are normal. There is no tenderness. Musculoskeletal: She exhibits no edema. Neurological: She is alert and oriented to person, place, and time. Coordination normal. Skin: Skin is warm and dry. Capillary refill takes less than 2 seconds. No rash noted. No erythema. Psychiatric: She has a normal mood and affect. Her behavior is normal. Thought content normal. Nursing note and vitals reviewed. Diagnoses and all orders for this visit: Essential hypertension (Primary) Assessment & Plan: Hypertension is unchanged. Continue current treatment regimen. Dietary sodium restriction. Regular aerobic exercise. Continue current medications. Blood pressure will be reassessed at the next regular appointment. Orders: - amLODIPine (NORVASC) 10 mg tablet; Take 1 tablet (10 mg total) by mouth daily. - CBC with auto differential; Future - Comprehensive metabolic panel; Future - Urinalysis reflex to microscopic and culture; Future Pure hypercholesterolemia Assessment & Plan: Lipid abnormalities are unchanged. Nutritional counseling was provided. and Pharmacotherapy as ordered. Lipids will be reassessed in 6 months. Orders: - atorvastatin (LIPITOR) 20 mg tablet; Take 1 tablet (20 mg total) by mouth daily. - Comprehensive metabolic panel; Future - Lipid panel; Future Anxiety Assessment & Plan: Stable. Refill given. Orders: - LORazepam (ATIVAN) 0.5 mg tablet; Take 1 tablet (0.5 mg total) by mouth every 6 (six) hours as needed for anxiety. STOP CHECKER documented in this encounter Miscellaneous Notes * Assessment & Plan Note - Jocelynn Coy DO - 06/07/2017 1:13 PM LOOM STOP CHECKER Associated Problem(s): Generalized anxiety disorder Stable. Refill given. 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 Nutritional counseling was provided. and Pharmacotherapy as ordered. Lipids will be reassessed in 6 months. STOP CHECKER * Assessment & Plan Note - Jocelynn Coy, - 06/07/2017 1:13 PM LOOM STOP CHECKER Associated Problem(s): Hypertension associated with diabetes (HCC) Hypertension is unchanged. Continue current treatment regimen. Dietary sodium restriction. Regular aerobic exercise. Continue current medications. Blood pressure will be reassessed at the next regular appointment. STOP CHECKER documented in this encounter Plan of Treatment Not on file documented as of this encounter Visit Diagnoses Diagnosis Essential hypertension- Primary Unspecified essential hypertension Pure hypercholesterolemia Anxiety Anxiety state, unspecified documented in this encounter Discontinued Medications Medication Sig Discontinue Reason Start Date End Da te atorvastatin (LIPITOR) 20 mg tablet Take 20 mg by mouth daily. Reorder 06/07/2017 LORazepam (ATIVAN) 0.5 mg tablet Take 0.5 mg by mouth every 6 (six) hours as needed for anxiety. Reorder 06/07/2017 amLODIPine (NORVASC) 10 mg tablet Take 10 mg by mouth daily. Reorder 06/07/2017 documented as of this encounter Historical Medications * This list may reflect changes made after this encounter. atorvastatin (LIPITOR) 20 mg tablet Take 20 mg by mouth daily. 06/07/2017 amLODIPine (NORVASC) 10 mg tablet Take 10 mg by mouth daily. 06/07/2017 LORazepam (ATIVAN) 0.5 mg tablet Take 0.5 mg by mouth every 6 (six) hours as needed for anxiety. 06/07/2017 added in this encounter Care Teams Software Reliability Engineer Relationship Specialty Start Date End Date No, Physician PCP - General 02/21/17 06/09/17 documented as of this encounter
--- OUTSIDE RECORDS SUMMARY | 2024-03-31 14:24 | XMS_ITS | Encounter Summary ---
Author Organization [facility] Medical [facility] Address [address] [place] [address] Care Team Providers Care Sales Support Rep Name Role Phone Jocelynn Coy DO Primary Care Provider [phone] Reason for Visit * Reason Comments Hypertension 6 month f/u Hyperlipidemia Encounter Details Date Type Department Care Team (Late st Contact Info) Description 12/06/2017 11:45 AM CDT Office Visit [facility] [address] [place] [phone] Jocelynn Coy DO [address] [facility] [address] [address] Essential hypertension (Primary Dx); Pure hypercholesterolemia; Anxiety Social History Tobacco Use Types Packs/Day Years Used Date Smoking Tobacco: Never Smokeless Tobacco: Never Alcohol Use Standard Drinks/Week Comments No 0 (1 standard drink = 0.6 oz pur e alcohol) Comments Unknown Sex and Gender Information Value Date Recorded Sex Assigned at Not on file Legal Sex Female 8:45 PM PAINT LABORATORY TECHNICIAN Gender Identity Female 04/25/2021 2:46 PM PAINT LABORATORY TECHNICIAN Sexual Orientation Straight 04/25/2021 2: 46 PM PAINT LABORATORY TECHNICIAN documented as of this encounter Last Filed Vital Signs Vital Sign Reading Time Taken Comments Blood Pressure 149/67 12/06/2017 11:09 AM CDT Pulse 63 12/06/2017 11:09 AM CDT Temperature 36.7 ??C (98.1 ??F) 12/06/2017 11:09 AM C DT Respiratory Rate 18 12/06/2017 11:09 AM CDT Oxygen Saturation 98% 12/06/2017 11:09 AM CDT Inhaled Oxygen Concentration - - Weight 70.4 kg (155 lb 3.2 oz) 12/06/2017 11:09 AM CDT Height 152.4 cm (5') 12/06/2017 11:09 AM CDT Body Mass Index 30.31 12/06/2017 11:09 AM CDT documented in this encounter Patient Instructions * Patient Instructions* Jocelynn Coy, DO - 12/06/2017 11:21 AM CDT Images from the original note were not included. Patient Education DASH Eating Plan FIRE OFFICIAL: The DASH (Dietary Approaches to Stop Hypertension) [...] add flavor to foods. Try lemon or ruby juice or vinegar to give foods a [...] oil, and liquid and soft tub margarines. [place]-3 fatty acids are found in fatty fish, [...] or 1?? ounces of liquor. ?? 2017 [employer] Information is for End User's use only and may not be sold, redistributed or otherwise used for commercial purposes. All illustrations and images included in CareNotes?? are the copyrighted property of [employer]. or [employer]. The above information is an therapy aide only. It is not intended as medical advice for individual conditions or treatments. Talk to your doctor, nurse or pharmacist before following any medical regimen to see if it is safe and effective for you. documented in this encounter Ordered Prescriptions Prescription Sig Dispense Quantity Refills Last Filled Start Date End Date LORazepam (ATIVAN) 0.5 mg tabletIndications: Anxiety Take 1 tablet (0.5 mg total) by mouth every 6 (six) hours as needed for anxiety. 30 tablet 5 12/06/2017 08/06/2018 documented in this encounter Progress Notes * Jocelynn Coy DO - 12/06/2017 11:45 AM CDT Subjective/Objective Patient ID: Annita Bose is a 77 y.o. female. Chief Complaint Chief Complaint Patient presents with ??? Hypertension 6 month f/u ??? Hyperlipidemia HPI Patient RTC today for routine f/u of chronic conditions. Hypertension This is a chronic problem. The current episode started more than 1 year ago. The problem has been waxing and waning since onset. The problem is controlled. Pertinent negatives include [...] treatment includes statins. The current treatment provides significant improvement of lipids. Compliance problems include adherence to exercise. Risk factors for coronary artery disease include hypertension, dyslipidemia and post-menopausal. Vitals: 12/06/17 1109 BP: 149/67 BP Location: Left arm Patient Position: Sitting Pulse: 63 Resp: 18 Temp: 36.7 ??C (98.1 ??F) TempSrc: Oral SpO2: 98% Weight: 70.4 kg (155 lb 3.2 oz) Height: 152.4 cm (5') Body mass index is 30.31 kg/m??. Review of Systems Constitutional: Negative for fatigue. HENT: Negative for facial swelling and trouble swallowing. Eyes: Negative for visual disturbance. Respiratory: Negative [...] hypertension (Primary) Assessment & Plan: Hypertension is worsening. Continue current treatment regimen. Dietary sodium restriction. Regular aerobic exercise. Continue current medications. amlodipine 10mg qd Blood pressure will be reassessed at the next regular appointment. Pure hypercholesterolemia Assessment & Plan: Lipid abnormalities are improving with treatment. Nutritional counseling was provided. and Pharmacotherapy as ordered. lipitor 20mg qd Lipids will be reassessed in 6 months. Anxiety Assessment & Plan: At baseline, continue lorazepam 0.5 mg q6h prn Orders: - LORazepam (ATIVAN) 0.5 mg tablet; Take 1 tablet (0.5 mg total) by mouth every 6 (six) hours as needed for anxiety. 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 Nutritional counseling was provided. and Pharmacotherapy as ordered. lipitor 20mg qd Lipids will be reassessed in 6 months. * Assessment & Plan Note - Jocelynn Coy DO - 12/06/2017 12:59 PM CDT Associated Problem(s): Hypertension associated with diabetes (HCC) Hypertension is worsening. Continue current treatment regimen. [...] End Da te LORazepam (ATIVAN) 0.5 mg tabletIndications:Anxiet y Take 1 tablet (0.5 mg total) by mouth every 6 (six) hours as needed for anxiety. Reorder 06/07/2017 12/06/2017 documented as of this encounter Care Teams Sales Support Rep Relationship Specialty Start Date End Date Jocelynn Coy DO PCP - General Family Medicine 06/10/17 09/02/23 documented as of this encounter
--- OUTSIDE RECORDS SUMMARY | 2024-03-31 14:24 | XMS_ITS | Encounter Summary ---
Author Organization [facility] Healthcare Address [address] [place] [address] Care Team Providers Care Credit Union Field Examiner Name Role Phone Unavailable Primary Care Provider Unavailabl e Encounter Details Date Type Department Care Team (Late st Contact Info) Description 08/10/2014 2:32 PM CDT - 08/10/2014 6:20 PM CDT Hospital Encounter [facility] Stella Osei, DO [address] [place] [address] Palpitations; Essential hypertension; Type 2 or unspecified type diabetes mellitus Social History Tobacco Use Types Packs/Day Years Used Date Smoking Tobacco: Never Assessed Comments Unknown Sex and Gender Information Value Date Recorded Sex Assigned at Not on file Legal Sex Female 8:45 PM FINANCIAL CONTROLLER Gender Identity Female 04/25/2021 2:46 PM FINANCIAL CONTROLLER Sexual Orientation Straight 04/25/2021 2: 46 PM FINANCIAL CONTROLLER documented as of this encounter Plan of Treatment Not on file documented as of this encounter Procedures Procedure Name Priority Date/Time Associated Diagnosis Comments SERUM MAGNESIUM Routine 08/10/2014 4:00 PM CDT SERUM COMPREHENSIVE METABOLIC PANEL Routine 08/10/2014 4:00 PM CDT PLASMA TROPONIN-T Routine 08/10/2014 4:0 0 PM CDT PLASMA PROTHROMBIN TIME (PT) Routine 08/10/2014 4:00 PM CDT PLASMA PARTIAL THROMBOPLASTIN TIME (PTT) Routine 08/10/2014 4:00 PM CDT BLOOD WBC CELL MORPHOLOGIC EXAM, AUTO Routine 08/10/2014 4:00 PM CDT BLOOD PRO B-TYPE NATRIURETIC PEPTIDE Routine 08/10/2014 4:00 PM CDT BLOOD CELL COUNT (CBC) Routine 5 4:00 PM CDT XR CHEST PORTABLE Routine 08/10/2014 3:5 7 PM CDT ELECTROCARDIOGRAPHY (ECG) 08/10/2014 DISCHARGE LABORATORY CUMULATIVE REPORT Routine 08/10/2014 12:00 AM CDT documented in this encounter Results * Plasma partial thromboplastin time (PTT) (08/10/2014 4:00 PM CDT) APTT 27.7 -<36. seconds HISTOR ICAL RESULTS Plasma 08/10/2014 4:00 PM CDT us Historical Provider LAB BLOOD ORDERABLES Marisel valencia Result HISTORICAL RESULTS * Plasma prothrombin time (PT) (08/10/2014 4:00 PM CDT) Prothrombin time (PT) 13.5 10.9 - 14.8 seconds HISTORICAL RESULTS INR 1.07 HISTORICAL RESULTS Comment: RECOMMENDED RANGES FOR PROTIME INR: NOTE: THE INR HAS BEEN VALIDATED ONLY FOR PATIENTS ON STABLE ORAL ?ANTICOAGULANT THERAPY. ?2.0 - 3.0 ??PROPHYLAXIS OF VENOUS THROMBOSIS (HIGH RISK SURGERY) ?2.0 - 3.0 ??TREATMENT OF VENOUS THROMBOSIS ?2.0 - 3.0 ??TREATMENT OF PULMONARY EMBOLISM ?2.0 - 3.0 ??PREVENTION OF SYSTEMIC EMBOLISM ? TISSUE HEART VALVES ? AMI (TO PREVENT SYSTEMIC EMBOLISM)* ? VALVULAR HEART DISEASE ? ATRIAL FIBRILLATION ?2.5 - 3.5 ??MECHANICAL PROSTHETIC VALVES (HIGH RISK) ?2.0 - 3.0 ??BILEAFLET MECHANICAL VALVE IN AORTIC POSITION *If oral anticoagulant therapy is elected to prevent recurrent myocardial infarction, an INR of 2.5 to 3.5 is recommended, consistent with Food and Drug Administration recommendations. Plasma 08/10/2014 4:00 PM CDT Result [facility] Historical Provider MD LAB BLOOD ORDERABLES Marisel l Result Performing Organization Address [facility] de Phone Number HISTORICAL RESULTS * Plasma troponin-T (08/10/2014 4:00 PM CDT) Troponin T <0.01 0.00 - 0.06 ng/ml HISTORICAL RESULTS Plasma 08/10/2014 4:00 PM CDT Result [facility] Historical Provider MD LAB BLOOD ORDERABLES Marisel l Result Performing Organization Address [facility] de Phone Number HISTORICAL RESULTS * Blood Pro B-type natriuretic peptide (08/10/2014 4:00 PM CDT) Pro BNP 81.0 10.0 - 150.0 pg/ml HISTORICAL RESULTS Blood specimen (specimen) 08/10/2014 4:00 PM CDT Result [facility] Historical Provider MD LAB BLOOD ORDERABLES Marisel l Result Performing Organization Address [facility] de Phone Number HISTORICAL RESULTS * Serum magnesium (08/10/2014 4:00 PM CDT) Magnesium 2.2 1.6 - 2.4 mg/dl HISTORICAL RESULTS Serum 08/10/2014 4:00 PM CDT Historical Provider LAB BLOOD ORDERABLES Marisel valencia Result Performing Organization Address [facility] de Phone Number HISTORICAL RESULTS * (ABNORMAL) Blood cell count (CBC) (08/10/2014 4:00 PM CDT) WBC 5.4 4.0 - 10.5 K/cumm HISTORICAL RESULTS RBC 5.64(H) 4.20 - 5.40 M/cumm HISTORICAL RESULTS Hgb 14.8 12.0 - 16.0 g/dl HISTORICAL RESULTS Hct 44.8 37.0 - 47.0 % HISTORICAL RESULTS MCV 79.4 77.0 - 97.0 fl HISTORICAL RESULTS MCH 26.2 23.0 - 34.0 pg HISTORICAL RESULTS MCHC 33.0 32.0 - 36.0 g/dl HISTORICAL RESULTS Rdw 13.8 11.5 - 14.5 % HISTORICAL RESULTS Platelets 313 150 - 400 K/cumm HISTORICAL RESULTS MPV 9.9 7.4 - 10.4 fl HISTORICAL RESULTS Blood specimen (specimen) 08/10/2014 4:00 PM CDT Result [facility] Historical Provider LAB BLOOD ORDERABLES Marisel valencia Result Performing Organization Address [facility] de Phone Number HISTORICAL RESULTS * (ABNORMAL) Blood WBC cell morphologic exam, auto (08/10/2014 4:00 PM CDT) Lymphocytes 25.6 25.0 - 33.0 % HISTORICAL RESULTS Monos 5.4 0.0 - 13.0 % HISTORICAL RESULTS Neutrophils 68.2 54.0 - 69.0 % HISTORICAL RESULTS Eosinophils 0.2 0.0 - 10.0 % HISTORICAL RESULTS Basophils 0.4 0.0 - 1.0 % HISTORICAL RESULTS Immature granulocytes 0.2 0.0 - 1.0 % HISTORICAL RESULTS Lymphocytes, abs 1.4 1.2 - 3.4 K/cumm HISTORICAL RESULTS Monocytes, absolute 0.3(L) 1.1 - 1.9 K/cumm HISTORICAL RESULTS Neutrophils, abs 3.7 1.4 - 6.5 K/cumm HISTORICAL RESULTS Eosinophils, abs 0.0 0.0 - 0.7 cells/cumm HISTORICAL RESULTS Basophils, abs 0.0 0.0 - 0.2 K/cumm HISTORICAL RESULTS Immature granulocyte, abs 0.0 0.0 - 0.0 K/cumm HISTORICAL RESULTS Blood specimen (specimen) 08/10/2014 4:00 PM CDT Historical Provider LAB BLOOD ORDERABLES Marisel valencia Result HISTORICAL RESULTS * (ABNORMAL) Serum comprehensive metabolic panel (08/10/2014 4:00 PM CDT) BUN 8.6 8.0 - 25.0 mg/dl HISTORICAL RESULTS Sodium 138 135 - 145 mmol/L HISTORICAL RESULTS Potassium, sr 4.5 3.5 - 5.1 mmol/L HISTORICAL RESULTS Chloride 98 97 - 110 mmol/L HISTORICAL RESULTS CO2 26 22 - 32 mmol/L HISTORICAL RESULTS Glucose 127 70 - 199 mg/dl HISTORICAL RESULTS Comment: Note:The glucose is assumed non fasting Fastin-99 mg/dl Random: 70-199 mg/dl Either a fasting glucose > 126 mg/dL or a random glucose > 200 mg/dL plus symptoms is diagnostic of diabetes when confirmed on another day. Fasting values > 100 mg/dl but < 125 mg/dL are diagnostic of impaired fasting glucose. Creatinine 0.64 0.60 - 1.10 mg/dl HISTORICAL RESULTS BUN/creat ratio 13 10 - 20 HIST ORICAL RESULTS A. gap 19(H) 8 - 16 mmol/L HISTORICAL RESULTS Protein, sr 8.0 6.2 - 8.2 g/dl HISTORICAL RESULTS Alb 4.2 3.6 - 5.0 g/dl HISTORICAL RESULTS Alb/glob ratio 1.1 1.1 - 1.8 HISTO RICAL RESULTS Calcium 10.1 8.6 - 10.2 mg/dl HISTORICAL RESULTS Bilirubin 0.3 0.1 - 1.2 mg/dl HISTORICAL RESULTS Alk phos 63 40 - 130 Units/L HISTORICAL RESULTS AST 21 10 - 40 Units/L HISTORICAL RESULTS ALT 18 5 - 45 Units/L HISTORICAL RESULTS Serum 08/10/2014 4:00 PM CDT Historical Provider LAB BLOOD ORDERABLES Marisel l Result HISTORICAL RESULTS * XR Chest Portable (08/10/2014 3:57 PM CDT) Anatomical Region Laterality Modality Body N/A Radiographic Ivy ging 08/10/2014 3:57 PM CDT Narrative 08/11/2014 11:31 AM CDT XR Chest Portable ? [id number] ??Acc#: ??[id number] DATE OF EXAM: ??Aug 10 2014 CLINICAL HISTORY: Tachycardia. RESULT: A portable AP radiograph of the chest with no prior study demonstrates a normal sized heart. ??Lungs are clear. IMPRESSION: NO ACTIVE DISEASE. Interpreting Physician: ??MAYKEL COOK M.D. ??Read on: ??Aug 10 2014 11:39P Transcribed by: ??mrr ??On: Aug 11 2014 10:28A Approved Electronically by: ??MAYKEL COOK M.D. ??on: ??Aug 11 2014 11:31A Attending: ??, Requesting: ??, Requesting Fax: ??-- Attending Fax: ??-- Attending ID: ?? Requesting ID: ??[id number] Report To 1 ID: ??[id number] Report To 1 Name: ??STELLA OSEI Report To 1 FAX: ??-- NextGen Order #: Procedure Note Provider, MD Thanh - 08/19/2016 XR Chest Portable [id number] Acc#: [id number] DATE OF EXAM: Aug 10 2014 CLINICAL HISTORY: Tachycardia. RESULT: A portable AP radiograph of the chest with no prior study demonstrates anormal sized heart. Lungs are clear. IMPRESSION: NO ACTIVE DISEASE. Interpreting Physician: MAYKEL COOK M.D. Read on: Aug 10 2014 11:39P Transcribed by: mrr On: Aug 11 2014 10:28A Approved Electronically by: MAYKEL COOK M.D. on: Aug 11 2014 11:31A Attending: , Requesting: , Requesting Fax: -- Attending Fax: -- Attending ID: Requesting ID: [id number] Report To 1 ID: [id number] Report To 1 Name: STELLA SOEI Report To 1 FAX: -- NextGen Order #: us Historical Provider MD HERNANDEZ XR PROCEDURES Final R esult * Discharge Laboratory Cumulative Report (08/10/2014 12:00 AM CDT) 08/10/2014 Narrative HISTORICAL RESULTS - 08/11/2014 12:43 AM CDT Patient No: [id number] ? [facility] Patient Name: MANDO CALLAHAN ?[facility] Age: 73 YRS ?: 1940 ?Sex:F ?[address] )[id number] ?? Adm Dt: 08/10/2014 ?[place], [place] ??[address] Created: 08/11/2014 ??0043 ?? Pt. Type: E ? Discharge Dt: 08/10/2014 ? Pathologists: Vivian Platt MD Admit Attend : STELLA OSEI DO ? BLOOD CELL COUNTS ?Collection Date: ?08/10/14 ?Collection Time: ?1600 ? Ref Range: ?? Units: [4.00-10.50] /CMM ? WBC X 10^3 ?5.36 [4.20-5.40] ??/CMM ? RBC X 10^6 ?5.64 H [12.0-16.0] ??G/DL ? HGB ? 14.8 [37.0-47.0] ??% ?HCT ? 44.8 [77.0-97.0] ??FL ? MCV ? 79.4 [23.0-34.0] ??PG ? MCH ? 26.2 [32.0-36.0] ??% ?MCHC ?33.0 [11.5-14.5] ??% ?RDW ? 13.8 [150-400] ?? /CMM ? PLT X 10^3 ? 313 ?BLOOD CELL DIFFERENTIAL ?Collection Date: ?/28/15 ?Collection Time: ?1600 ? Ref Range: ?? Units: [54.0-69.0] ??% ?NEUTROPHILS ? 68.2 [25.0-33.0] ??% ?LYMPHOCYTES ? 25.6 [0.0-13.0] ??% ?MONOCYTES ?5.4 [0.0-10.0] ??% ?EOSINOPHILS ?0.2 [0.0-1.0] ?? % ?BASOPHILS ?0.4 ? /CMM ? A LYMPHOCYTE ? 1.4 [0.0-1.0] ?? % ?IMM GRAN % ? 0.2 [0.00-0.02] ??/CMM ? A IMM GRAN ?0.01 [1.1-1.9] ?? /CMM ? A MONOCYTE ? 0.3 L [1.4-6.5] ?? /CMM ? A NEUTROPHIL ? 3.7 [0.0-0.7] ?? /CMM ? A EOSINOPHIL ? 0.0 [0.0-0.2] ?? /CMM ? A BASOPHIL ? 0.0 Footnotes and Symbols: L = Low, H = High ?? CONTINUED ?Page: ?? 1 Patient No: [id number] ? [facility] Patient Name: MANDO CALLAHAN ?[facility] Age: 73 YRS ?: 1940 ?Sex:F ?[address] )[id number] ?? Adm Dt: 08/10/2014 ?[place] ??[address] Created: 08/11/2014 ??0043 ?? Pt. Type: E ? Discharge Dt: 08/10/2014 ? Pathologists: Vivian Platt MD Admit Attend Dr: STELLA OSEI DO ? GENERAL CHEMISTRY ?Collection Date: ?08/10/14 ?Collection Time: ?1600 ? Ref Range: ?? Units: [0.00-0.06] ??NG/ML ?TROPONIN T ? <0.01 f ??[10-150] ?? pg/ml ?NT proBNP ? 81 f [135-145] ?? MMOL/L ? SODIUM ? 138 [3.5-5.1] ?? MMOL/L ? POTASSIUM ?4.5 [97.0-110.0] MMOL/L ? CHLORIDE ?98.0 [22.0-32.0] ??MMOL/L ? TOTAL CO2 ? 25.8 ?? [8-16] ?MMOL/L ? ANION GAP ? 19 H ??[70-199] ?? MG/DL ?GLUCOSE ?127 f [6.2-8.2] ?? G/DL ? TOTAL PROTEIN ?8.0 Footnotes and Symbols: H = High, f = Footnote TROPONIN T (05/23/14 -- Current) Negative: ??0.00-0.06 ng/ml Indeterminate: ??0.07-0.10 ng/ml Consistent with Myocardial Injury: ??Greater than 0.10 ng/ml NT proBNP (06/22/14 -- Current) NT-proBNP ?? DIAGNOSIS OF CONGESTIVE HEART FAILURE Heart Failure Unlikely: ??All Ages ?Less than 300 pg/ml Heart Failure Possible: ??Less than 50Y ? 300-450 pg/ml ? 50-75Y ?300-900 pg/ml ? 75-160Y ? 300-1800 pg/ml Heart Failure Likely: ?Less than 50Y ? Greater than 450 pg/ml ? 50-75Y ?Greater than 900 pg/ml ? 75-160Y ? Greater than 1,800 pg/ml Renal Failure: ? All Ages ?Greater than 1,200 pg/ml GLUCOSE (05/26/14 -- Current) Note:The glucose is assumed non fasting Fastin-99 mg/dl Random: 70-199 mg/dl Either a fasting glucose > 126 mg/dL or a random glucose > 200 mg/dL plus symptoms is diagnostic of diabetes when confirmed on another day. Fasting values > 100 mg/dl but < 125 mg/dL are diagnostic of impaired fasting glucose. ?? CONTINUED ?Page: ?? 2 Patient No: [id number] ? [facility] Patient Name: MANDO CALLAHAN ?[facility] Healthcare Age: 73 YRS ?: 1940 ?Sex:F ?[address] )[phone] ?? Adm Dt: 08/10/2014 ?[place], [place] ??[address] Created: 08/11/2014 ??0043 ?? Pt. Type: E ? Discharge Dt: 08/10/2014 ? Pathologists: Vivian Platt MD Admit Attend Dr: STELLA OSEI DO ? GENERAL CHEMISTRY ?Collection Date: ?08/10/14 ?Collection Time: ?1600 ? Ref Range: ?? Units: [3.6-5.0] ?? G/DL ? ALBUMIN ?4.2 [1.1-1.8] ?A/G RATIO ?1.1 [8.6-10.2] ??MG/DL ?CALCIUM ? 10.1 [0.1-1.2] ?? MG/DL ?BILI TOTAL ? 0.3 ??[40-130] ?? U/L ?ALK PHOS ?63 ??[10-40] ?U/L ?AST(SGOT) ? 21 f ?? [5-45] ?U/L ?ALT(SGPT) ? 18 f [8.0-25.0] ??MG/DL ?BUN ?8.6 ??[10-20] ? B/C RATIO ? 13 [0.60-1.10] ??MG/DL ?CREATININE ?0.64 [1.6-2.4] ?? MG/DL ?MAGNESIUM ?2.2 Footnotes and Symbols: f = Footnote AST(SGOT) (08/27/13 -- Current) ALT(SGPT) (11/04/12 -- Current) ?? CONTINUED ?Page: ?? 3 Patient No: [id number] ? [facility] Patient Name: MANDO CALLAHAN ?[facility] Age: 73 YRS ?: 1940 ?Sex:F ?[address] )[id number] ?? Adm Dt: 08/10/2014 ?[place], [place] ??[address] Created: 08/11/2014 ??0043 ?? Pt. Type: E ? Discharge Dt: 08/10/2014 ? Pathologists: Vivian Platt MD Admit Dr. Taylor Dr: STELLA OSEI DO ?COAGULATION ? Units: ?? PROTIME ?INR ?APTT PAT ? Low: ??[10.9-14.8] ? [< ?? 36.0] ? Ref Range: ? SECS ?SECS ? 08/10/14 1600 ?13.5 ? 1.07 f ? 27.7 Footnotes and Symbols: f = Footnote INR (11/02/99 -- Current) RECOMMENDED RANGES FOR PROTIME INR: NOTE: THE INR HAS BEEN VALIDATED ONLY FOR PATIENTS ON STABLE ORAL ?ANTICOAGULANT THERAPY. ?2.0 - 3.0 ??PROPHYLAXIS OF VENOUS THROMBOSIS (HIGH RISK SURGERY) ?2.0 - 3.0 ??TREATMENT OF VENOUS THROMBOSIS ?2.0 - 3.0 ??TREATMENT OF PULMONARY EMBOLISM ?2.0 - 3.0 ??PREVENTION OF SYSTEMIC EMBOLISM ? TISSUE HEART VALVES ? AMI (TO PREVENT SYSTEMIC EMBOLISM)* ? VALVULAR HEART DISEASE ? ATRIAL FIBRILLATION ?2.5 - 3.5 ??MECHANICAL PROSTHETIC VALVES (HIGH RISK) ?2.0 - 3.0 ??BILEAFLET MECHANICAL VALVE IN AORTIC POSITION *If oral anticoagulant therapy is elected to prevent recurrent myocardial infarction, an INR of 2.5 to 3.5 is recommended, consistent with Food and Drug Administration recommendations. ?? END OF CHART ? Page: ?? 4 us Historical Provider LAB BLOOD ORDERABLES Marisel valencia Result HISTORICAL RESULTS * ELECTROCARDIOGRAPHY (ECG) (08/10/2014) Narrative 08/10/2014 Ordered by an unspecified provider. us Historical Provider ECG ORDERABLES Final Res ult documented in this encounter Visit Diagnoses Diagnosis Palpitations Essential hypertension Unspecified essential hypertension Type 2 or unspecified type diabetes mellitus documented in this encounter
--- OUTSIDE RECORDS SUMMARY | 2024-03-31 14:24 | XMS_ITS | Encounter Summary ---
Author Organization [facility] Medical Group Address [address] [place] [address] Care Team Providers Care Lead Burner Apprentice Name Role Phone Jocelynn Coy DO Primary Care Provider [phone] Encounter Details Date Type Department Care Team (Late st Contact Info) Description 11/26/2017 Telephone [facility] [address] [place] [address] Jocelynn Coy DO [address] [facility] [address] [address] Social History Tobacco Use Types Packs/Day Years Used Date Smoking Tobacco: Never Smokeless Tobacco: Never Alcohol Use Standard Drinks/Week Comments No 0 (1 standard drink = 0.6 oz pur e alcohol) Comments Unknown Sex and Gender Information Value Date Recorded Sex Assigned at Not on file Legal Sex Female 8:45 PM MOVEMENT EDUCATION SPECIALIST Gender Identity Female 04/25/2021 2:46 PM MOVEMENT EDUCATION SPECIALIST Sexual Orientation Straight 04/25/2021 2: 46 PM MOVEMENT EDUCATION SPECIALIST documented as of this encounter Miscellaneous Notes * Telephone Encounter - Jocelynn Coy DO - 11/26/2017 10:58 AM CDT ? * Telephone Encounter - Stefany Skaggs RN - 11/26/2017 9:52 AM CDT ----- Message from Jocelynn Coy DO sent at 11/25/2017 9:18 PM CDT ----- Great job! All your labs were stable or were within normal limits! See you next time! Thanks for choosing [facility] as a member of your healthcare team! Jocelynn Coy DO documented in this encounter Plan of Treatment Not on file documented as of this encounter Visit Diagnoses Not on filedocumented in this encounter Care Teams Lead Burner Apprentice Relationship Specialty Start Date End Date Jocelynn Coy DO PCP - General Family Medicine 06/10/17 09/02/23 documented as of this encounter
--- OUTSIDE RECORDS SUMMARY | 2024-03-31 14:24 | XMS_ITS | Encounter Summary ---
Author Organization [facility] Address [address] [place] [address] Care Team Providers Care Survival Equipment Repairer Name Role Phone Jocelynn Coy DO Primary Care Provider [phone] Encounter Details Date Type Department Care Team (Late st Contact Info) Description 11/21/2017 Orders Only [facility] of [address] [place] [address] Jocelynn Coy DO [address] [facility] [address] [address] Social History Tobacco Use Types Packs/Day Years Used Date Smoking Tobacco: Never Smokeless Tobacco: Never Alcohol Use Standard Drinks/Week Comments No 0 (1 standard drink = 0.6 oz pur e alcohol) Comments Unknown Sex and Gender Information Value Date Recorded Sex Assigned at Not on file Legal Sex Female 8:45 PM VISITOR SERVICES COORDINATOR Gender Identity Female 04/25/2021 2:46 PM VISITOR SERVICES COORDINATOR Sexual Orientation Straight 04/25/2021 2: 46 PM VISITOR SERVICES COORDINATOR documented as of this encounter Plan of Treatment Not on file documented as of this encounter Procedures Procedure Name Priority Date/Time Associated Diagnosis Comments URINALYSIS AND REFLEX TO MICROSCOPIC AND CULTURE Routine 11/21/2017 3:16 PM CDT CBC WITH AUTO DIFFERENTIAL Routine 11/21/2017 3:16 PM CDT LIPID PANEL Routine 11/21/2017 3:16 PM CDT COMPREHENSIVE METABOLIC PANEL Routine 11/21/2017 3:16 PM CDT documented in this encounter Results * (ABNORMAL) CBC with auto differential (11/21/2017 3:16 PM CDT) Pathologist [facility] WBC 6.0 3.8 - 10.8 Thousand/ uL [facility] [place] RBC, POC 5.04 3.80 - 5.10 Million/u L [facility] [place] Hgb 13.2 11.7 - 15.5 g/dL [facility] [place] Hct 40.7 35.0 - 45.0 % [facility] [place] MCV 80.8 80.0 - 100.0 fL [facility] [place] MCH 26.2(L) 27.0 - 33.0 pg [facility] [place] MCHC 32.4 32.0 - 36.0 g/dL [facility] [place] Rdw 12.5 11.0 - 15.0 % [facility] [place] Platelets 263 140 - 400 Thousand/ uL [facility] [place] MPV 10.7 7.5 - 12.5 fL [facility] [place] Neutrophils, abs 2,784 1,500 - 7,800 cells/uL [facility] [place] Neutrophil bands, abs CANCELED 0 - 750 cells/uL [facility] [place] Comment:Result canceled by t he ancillary Metamyelocytes, abs CANCELED 0 cells/uL [facility] [place] Comment:Result canceled by t he ancillary Absolute Myelocytes CANCELED 0 cells/uL [facility] [place] Comment:Result canceled by t he ancillary Promyelocytes, abs CANCELED 0 cells/uL [facility] [place] Comment:Result canceled by t he ancillary Lymphocytes, abs 2,460 850 - 3,900 cells/uL [facility] [place] Monocyte abs 510 200 - 950 cells/uL [facility] [place] Eosinophils, abs 204 15 - 500 cells/uL [facility] [place] Basophils, abs 42 0 - 200 cells/uL [facility] [place] Blast, cell CANCELED 0 cells/uL [facility] [place] Comment:Result canceled by t he ancillary NRBC abs CANCELED 0 cells/uL [facility] [place] Comment:Result canceled by t he ancillary Neutrophils 46.4 % [facility] [place] Neutrophilic bands CANCELED % [facility] [place] Comment:Result canceled by t he ancillary Metamyelocyte pct CANCELED % [facility] [place] Comment:Result canceled by t he ancillary Myelocyte pct CANCELED % [facility] [place] Comment:Result canceled by t he ancillary Promyelocyte pct CANCELED % [facility] [place] Comment:Result canceled by t he ancillary Lymphocyte pct 41.0 % [facility] [place] Reactive lymph CANCELED 0 - 10 % [facility] [place] Comment:Result canceled by t he ancillary Monocytes 8.5 % [facility] [place] Eosinophils 3.4 % [facility] [place] Basophils 0.7 % [facility] [place] Blast pct CANCELED % [facility] [place] Comment:Result canceled by t he ancillary NRBC CANCELED 0 /100 WBC [facility] [place] Comment:Result canceled by t he ancillary Comment CANCELED [facility] [place] Comment:Result canceled by t he ancillary 11/21/2017 3:16 PM CDT 11/21/2017 3:17 PM CDT Narrative [facility] - 11/22/2017 11:13 PM CDT FASTING:NO FASTING: NO Resulting Agency Comment Performing Organization Information: ?Site ID: [place] ?Name: [facility] ?Address: [facility] [place] [id number] ?Director: Farrukh Molina D.O., MPH us Jocelynn Coy DO LAB BLOOD ORDERABLES Final Result Performing Organization Address City/State/[facility] Co de Phone Number [facility] [place] * (ABNORMAL) Urinalysis reflex to microscopic and culture (11/21/2017 3:16 PM CDT) Color, ur YELLOW YELLOW [facility] [place] Appearance, ur CLEAR CLEAR [facility] [place] Specific gravity 1.016 1.001 - 1.035 [facility] [place] pH, ur 7.0 5.0 - 8.0 [facility] [place] Glucose, ur NEGATIVE NEGATIVE [facility] [place] Reducing substances CANCELED NEGATIVE % [facility] [place] Comment:Result canceled by t he ancillary Bilirubin, ur NEGATIVE NEGATIVE [facility] [place] Ketones, ur NEGATIVE NEGATIVE [facility] [place] Blood, ur NEGATIVE NEGATIVE [facility] [place] Protein, ur, quant NEGATIVE NEGATIVE [facility] [place] Nitrites, ur NEGATIVE NEGATIVE [facility] [place] Leukocyte esterase, ur TRACE(A) NEGATIVE [facility] [place] WBC, ur 0-5 < OR = 5 /HPF [facility] [place] RBC, ur 0-2 < OR = 2 /HPF [facility] [place] Epithelial cells, squamous, ur 0-5 < OR = 5 /HPF [facility] [place] Epithelial cells, transitional CANCELED < OR = 5 /HPF [facility] [place] Comment:Result canceled by t he ancillary Epithelial cells, renal, ur CANCELED < OR = 3 /HPF [facility] [place] Comment:Result canceled by t he ancillary Bacteria, ur, quant NONE SEEN NONE SEEN /HPF [facility] [place] Calcium oxalate crystals, ur CANCELED NONE OR FEW /HPF [facility] [place] Comment:Result canceled by t he ancillary Triple phosphate crystals, ur CANCELED NONE OR FEW /HPF [facility] [place] Comment:Result canceled by t ancillary Uric acid crystals, ur CANCELED NONE OR FEW /HPF [facility] [place] Comment:Result canceled by t he ancillary Amorphous crystals, ur CANCELED NONE OR FEW /HPF [facility] [place] Comment:Result canceled by t he ancillary Crystals, ur CANCELED NONE SEEN /HPF [facility] [place] Comment:Result canceled by t he ancillary Hyaline cast NONE SEEN NONE SEEN /LPF [facility] [place] Granular casts, ur CANCELED NONE SEEN /LPF [facility] [place] Comment:Result canceled by t he ancillary Casts CANCELED NONE SEEN /LPF [facility] [place] Comment:Result canceled by t he ancillary Yeast, ur CANCELED NONE SEEN /HPF [facility] [place] Comment:Result canceled by t he ancillary Comments CANCELED [facility] [place] Comment:Result canceled by t he ancillary Note CANCELED [facility] [place] Comment:Result canceled by t he ancillary Urine culture CULTURE INDICATED - RESULTS TO FOLLOW [facility] [place] Urine culture SEE NOTE [facility] [place] Comment: ??CULTURE, URINE, ROUTINE ?MICRO NUMBER: ?[id number] ??TEST STATUS: ? FINAL ??SPECIMEN SOURCE: ?? URINE ??SPECIMEN QUALITY: ??ADEQUATE ??RESULT: ?Multiple organisms present, each less than 10,000 ? CFU/mL. These organisms, commonly found on ? external and internal genitalia, are considered ? to be colonizers. No further testing performed. 11/21/2017 3:16 PM CDT 11/21/2017 3:17 PM CDT Narrative [facility] - 11/22/2017 11:13 PM CDT FASTING:NO FASTING: NO Resulting Agency Comment Performing Organization Information: ?Site ID: [id number] ?Name: [facility] ?Address: [address] [place] [id number] ?Director: Farrukh Molina D.O., MPH us Jocelynn Coy DO LAB MICROBIOLOGY - GENERAL ORDERABLES Final Result [facility] [place] * Comprehensive metabolic panel (11/21/2017 3:16 PM CDT) Glucose 97 65 - 139 mg/dL [facility] [place] Comment: ? Non-fasting reference interval BUN 14 7 - 25 mg/dL [facility] [place] Creatinine 0.68 0.60 - 0.93 mg/dL [facility] [place] Comment: For patients >49 years of age, the reference limit for Creatinine is approximately 13% higher for people identified as -[place] Island[place]. eGFR NON-AFR. [place] 85 > OR = 60 mL/min/1 .73m2 [facility] [place] EGFR 98 > OR = 60 mL/min/1 .73m2 [facility] [place] BUN/creat ratio NOT APPLICABLE 6 - 22 (calc) [facility] [place] Sodium 139 135 - 146 mmol/L [facility] [place] Potassium, pl 4.2 3.5 - 5.3 mmol/L [facility] [place] Chloride 107 98 - 110 mmol/L [facility] [place] CO2 27 20 - 32 mmol/L [facility] [place] Calcium 9.5 8.6 - 10.4 mg/dL [facility] [place] Protein, sr 7.0 6.1 - 8.1 g/dL [facility] [place] Albumin 3.8 3.6 - 5.1 g/dL [facility] [place] GLOBULIN 3.2 1.9 - 3.7 g/dL (calc) [facility] [place] Alb/glob ratio 1.2 1.0 - 2.5 (calc) [facility] [place] Bilirubin, total 0.3 0.2 - 1.2 mg/dL [facility] [place] Alk phos 76 33 - 130 U/L [facility] [place] AST 15 10 - 35 U/L [facility] [place] ALT (SGPT) 13 6 - 29 U/L [facility] [place] 11/21/2017 3:16 PM CDT 11/21/2017 3:17 PM CDT Narrative [facility] - 11/22/2017 11:13 PM CDT FASTING:NO FASTING: NO Resulting Agency Comment Performing Organization Information: ?Site ID: [id number] ?Name: [facility] ?Address: [address] [place] [address] [place] [id number] ?Director: Farrukh Molina D.O., MPH us Jocelynn Coy DO LAB BLOOD ORDERABLES Final Result [facility] [place] * Lipid panel (11/21/2017 3:16 PM CDT) Cholesterol 170 <200 mg/dL [facility] [place] HDL 60 >50 mg/dL [facility] [place] Triglycerides 141 <150 mg/dL [facility] LDL 86 mg/dL (calc) [facility] Comment: Reference range: <100 Desirable range <100 mg/dL for primary prevention; ?? <70 mg/dL for patients with CHD or diabetic patients with > or = 2 CHD risk factors. LDL-C is now calculated using the Miguel calculation, which is a validated novel method providing better accuracy than the Friedewald equation in the estimation of LDL-C. Lavelle CORTES et al. SAYDA. 2013;310(19): 5195-5407 (http://education.JRKICKZ.NPTV/faq/YDG472) Chol/HDL ratio 2.8 <5.0 (calc) [facility] [place] Non-HDL, (LDL+VLDL) 110 <130 mg/dL (calc) [facility] [place] Comment: For patients with diabetes plus 1 major ASCVD risk factor, treating to a non-HDL-C goal of <100 mg/dL (LDL-C of <70 mg/dL) is considered a therapeutic option. 11/21/2017 3:16 PM CDT 11/21/2017 3:17 PM CDT Narrative [facility] - 11/22/2017 11:13 PM CDT FASTING:NO FASTING: NO Resulting Agency Comment Performing Organization Information: ?Site ID: [place] ?Name: [facility] ?Address: [address] [place] [address] [facility] [place] [phone] ?Director: Farrukh Molina D.O., MPH us Jocelynn Coy DO LAB BLOOD ORDERABLES Final Result [facility] [place] documented in this encounter Visit Diagnoses Not on filedocumented in this encounter Care Teams Survival Equipment Repairer Relationship Specialty Start Date End Date Jocelynn Coy DO PCP - General Family Medicine 06/10/17 09/02/23 documented as of this encounter
--- OUTSIDE RECORDS SUMMARY | 2024-03-31 16:34 | XMS_ITS | Encounter Summary ---
Author Organization [facility] Care Team Providers Care Student Teaching Coordinator Name Role Phone Carmelita Olivera MD Primary [...] on filedocumented in this encounter Care Teams Student Teaching Coordinator Relationship Specialty Start Date End Date Carmelita Olivera MD [address] [place] [address] RACHA[place] GARCIA [id number] PCP - General Family Medicine 03/25/24 documented as of this encounter
--- OUTSIDE RECORDS SUMMARY | 2024-03-31 16:34 | XMS_ITS | Encounter Summary ---
Author Organization [facility] Care Team Providers Care Geography Teacher Name Role Phone Jocelynn Coy DO Primary Care Provider [phone] Encounter Details Date Type Department Care Team [...] - 19 04/20/2023 04/20/2023 04/20/2023 8:46 AM FORMING MACHINE OPERATOR COVID - 19 Confirmed 04/20/2023 04/20/2023 024 12:16 AM FORMING MACHINE OPERATOR documented as of this encounter Care Teams Geography Teacher Relationship Specialty Start Date End Date Jocelynn Coy DO [address] [place] [address] RACHAEL GARCIA [phone] PCP - General Family Medicine 04/20/23 03/24/24 documented as of this encounter
--- OUTSIDE RECORDS SUMMARY | 2024-03-31 16:34 | XMS_ITS | Encounter Summary ---
Author Organization [facility] Address [address] [place] [address] Phone Care Team Providers Care Logging Truck Driver Name Role Phone Carmelita Olivera MD Primary Care Provide r Reason for Visit * Reason Comments Altered Mental Status Encounter Details Date Type Department Care Team (Late st Contact Info) Description 03/25/2024 6:31 PM AGRICULTURE LABORER - 03/25/2024 9:24 PM AGRICULTURE LABORER Emergency [facility] Emergency [address] [place] [address] Prabhjot Javier MD [address] [place] [address] Visual hallucinations Discharge Disposition: Discharged to home [...] Comments Blood Pressure 132/55 03/25/2024 9:15 PM AGRICULTURE LABORER Pulse 64 03/25/2024 9:15 PM AGRICULTURE LABORER Temperature 36.6 ??C (97.9 ??F) 03/25/2024 6:25 PM CS T Respiratory Rate 16 03/25/2024 9:15 PM AGRICULTURE LABORER Oxygen Saturation 97% 03/25/2024 9:15 PM AGRICULTURE LABORER Inhaled Oxygen Concentration - - Weight 58.1 kg (128 lb) 03/25/2024 6:25 PM AGRICULTURE LABORER Height 152.4 cm (5') 03/25/2024 6:25 PM AGRICULTURE LABORER Body Mass Index 25 03/25/2024 6:25 PM AGRICULTURE LABORER documented in this encounter Discharge Instructions * Discharge Instructions* Prabhjot Javier MD - 03/25/2024 9:15 PM AGRICULTURE LABORER Continue with your current medications. Follow up with your primary care provider for recheck. CULTURE LABORER documented in this encounter Medications at Time [...] BY MOUTH EVERY DAY WITH BREAKFAST 04/03/2023 [place]-3 1000 MG Capsule Take by mouth. documented [...] per ambulatory mode with self as responsible constitution party. SL D/C'ed with Trey cath intact. CULTURE LABORER * Maggie Pagan RN - 03/25/2024 7:20 PM CST Pt medicated per provider orders. Pt educated on intended effects and side effects of medication and verbalized understanding. Pt able to provide teach- back of education. CULTURE LABORER * Yanely Ugalde RN - 03/25/2024 7:17 PM CST Patient presents to ED room 3. No change in patients condition since being seen in triage. See triage note. Assessment as noted. Call light within reach. Will continue to monitor. CULTURE LABORER * Prabhjot Javier MD - 03/25/2024 6:59 [...] TABLET BY MOUTH EVERY DAY WITH BREAKFAST [place]-3 1000 MG Capsule Take by mouth. No [...] More than three times a week Attends Scientologist Services: Never Active Member of Clubs or [...] with her primary care provider for recheck CULTURE LABORER * Olga Doran RN - 03/25/2024 6:54 PM CST ERP at bedside CULTURE LABORER * Selin Griffin RN - 03/25/2024 6:26 [...] would like her checked for a UTI. CULTURE LABORER documented in this encounter Plan of Treatment Not on file documented as of this encounter Procedures Procedure Name Priority Date/Time Associated Diagnosis Comments CBC WITH AUTO DIFFERENTIAL STAT 03/25/2024 7:22 PM AGRICULTURE LABORER THYROID STIMULATING HORMONE (TSH) STAT 03/25/2024 7:22 PM AGRICULTURE LABORER CMP (COMPREHENSIVE METABOLIC PANEL) STAT 03/25/2024 7:22 PM AGRICULTURE LABORER COMPLETE BLOOD COUNT (CBC) WITH DIFF STAT 03/25/2024 7:22 PM AGRICULTURE LABORER URINALYSIS REFLEX IF INDICATED BY ABNORMAL RESULTS STAT 03/25/2024 6:39 PM AGRICULTURE LABORER documented in this encounter Results * CBC with Auto Differential (03/25/2024 7:22 PM AGRICULTURE LABORER) WBC 6.01 4.00 - 12.00 10(3)/mcL 03/25/2024 7:32 PM AGRICULTURE LABORER [facility] RBC 4.56 3.80 - 5.30 10(6)/mcL 03/25/2024 7:32 PM AGRICULTURE LABORER [facility] HEMOGLOBIN (HGB) 12.3 12.0 - 15.8 g/dL 03/25/2024 7:32 PM AGRICULTURE LABORER [facility] HEMATOCRIT (HCT) 38.8 36.0 - 47.0 % 03/25/2024 7:32 PM AGRICULTURE LABORER [facility] MCV 85.1 82.0 - 96.0 fL 03/25/2024 7:32 PM AGRICULTURE LABORER [facility] MCH 27.0 26.0 - 34.0 pg 03/25/2024 7:32 PM AGRICULTURE LABORER [facility] MCHC 31.7 31.0 - 36.0 g/dL 03/25/2024 7:32 PM [facility] PLATELET COUNT 223 140 - 440 10(3)/[facility] 03/25/2024 7:32 PM [facility] RDW 13.2 11.8 - 15.5 % 03/25/2024 7:32 PM [facility] MPV 10.5 9.7 - 12.4 fL 03/25/2024 7:32 PM [facility] NEUTROPHILS 54.5 47.0 - 73.0 % 03/25/2024 7:32 PM [facility] LYMPHOCYTES 35.6 18.0 - 42.0 % 03/25/2024 7:32 PM [facility] MONOCYTES 7.8 4.0 - 12.0 % 03/25/2024 7:32 PM [facility] EOSINOPHILS 1.3 0.0 - 5.0 % 03/25/2024 7:32 PM [facility] BASOPHILS 0.8 0.0 - 1.0 % 03/25/2024 7:32 PM [facility] ABSOLUTE NEUTROPHILS 3.27 1.60 - 7.70 10(3)/[facility] 03/25/2024 7:32 PM [facility] ABSOLUTE LYMPHOCYTES 2.14 1.30 - 3.20 10(3)/[facility] 03/25/2024 7:32 PM [facility] ABSOLUTE MONOCYTES 0.47 0.20 - 1.00 10(3)/[facility] 03/25/2024 7:32 PM [facility] ABSOLUTE EOSINOPHIL 0.08 0.00 - 0.40 10(3)/[facility] 03/25/2024 7:32 PM [facility] ABSOLUTE BASOPHILS 0.05 0.00 - 0.10 10(3)/[facility] 03/25/2024 7:32 PM [facility] NRBC PER 100 WBC 0 03/25/20 7:32 PM [facility] Blood Venipuncture / Unknown 03/25/2024 7:22 PM AGRICULTURE LABORER 03/25/2024 7:30 PM AGRICULTURE LABORER Prabhjot Javier MD HEMATOLOGY ORDERABLES Fin al Result Performing Organization Address City/[facility]/ZIP Co de Phone Number [facility] [address] [place] [address] * Thyroid Stimulating Hormone (TSH) (03/25/2024 7:22 PM AGRICULTURE LABORER) TSH 0.710 0.300 - 5.000 mIU/L 03/25/2024 8:12 PM AGRICULTURE LABORER [facility] Blood Venipuncture / Unknown 03/25/2024 7:22 PM AGRICULTURE LABORER 03/25/2024 7:30 PM AGRICULTURE LABORER Prabhjot Javier MD CHEMISTRY ORDERABLES Marisel l Result Performing Organization Address [facility] de Phone Number [facility] [address] [place] [address] * (ABNORMAL) CMP (Comprehensive Metabolic Panel) (03/25/2024 7:22 PM AGRICULTURE LABORER) Pathologist [facility] SODIUM 144 136 - 145 mmol/L 03/25/2024 7:54 PM AGRICULTURE LABORER [facility] POTASSIUM 3.8 3.5 - 5.1 mmol/L 03/25/2024 7:54 PM AGRICULTURE LABORER [facility] CHLORIDE 106 98 - 107 mmol/L 03/25/2024 7:54 PM AGRICULTURE LABORER [facility] CO2, VENOUS 29 22 - 30 mmol/L 03/25/2024 7:[address] [facility] ANION GAP 12.8 <18.0 mmol/L 03/25/2024 7:[address] [facility] GLUCOSE 156(H) 70 - 99 mg/dL 03/25/2024 7:54 PM AGRICULTURE LABORER [facility] BUN 14 10 - 20 mg/dL 03/25/2024 7:54 PM AGRICULTURE LABORER [facility] CREATININE, BLOOD 0.91 0.60 - 1.00 mg/dL 03/25/2024 7:54 PM [facility] BUN/CREATININE RATIO 15 12 - 20 ratio 03/25/2024 7:54 PM [facility] TOTAL PROTEIN 7.2 6.3 - 8.2 g/dL 03/25/2024 7:54 PM [facility] ALBUMIN 4.0 3.5 - 5.0 g/dL 03/25/2024 7:54 PM [facility] A/G RATIO 1.3 1.0 - 2.2 03/25/2024 7:54 PM [facility] CALCIUM 9.9 8.7 - 10.5 mg/dL 03/25/2024 7:54 PM [facility] T BILI 0.4 0.2 - 1.2 mg/dL 03/25/2024 7:54 PM [facility] SGOT (AST) 17 5 - 34 U/L 03/25/2024 7:54 PM [facility] SGPT (ALT) 13 0 - 55 U/L 03/25/2024 7:54 PM [facility] ALKALINE PHOSPHATASE 76 40 - 150 U/L 03/25/2024 7:54 PM [facility] GFR, ESTIMATED >60 >=60 03/25/2024 7:54 PM [facility] Comment: Creatinine Clearance is the preferred criteria for selecting drug dose adjustments in renally impaired patients. ??The GFR is provided as additional pertinent clinical information. GFR is reported in mL/min/1.73 sq m. Calculation based on the Chronic Kidney Disease Epidemiology Collaboration (CKD- EPI) equation refit without adjustment for race. GFR, EST. >60 >=60 024 7:54 PM [facility] GFR, EST. NONAFRICAN 59(L) >=60 03/25/2024 7:54 PM [facility] Blood Venipuncture / Unknown 03/25/2024 7:22 PM AGRICULTURE LABORER 03/25/2024 7:30 PM AGRICULTURE LABORER us Prabhjot Javier MD CHEMISTRY ORDERABLES Marisel l Result [facility] [address] [place] [address] * (ABNORMAL) URINALYSIS REFLEX IF INDICATED BY ABNORMAL RESULTS (03/25/2024 6:39 PM AGRICULTURE LABORER) SPECIFIC GRAVITY 1.025 1.003 - 1.030 03/25/2024 7:[address] [facility] URINE PH 6.0 5.0 - 9.0 03/25/2024 7:42 PM [facility] WBC ESTERASE 25 /ul(A) Negative 03/25/2024 7:42 PM [facility] NITRITE Negative Negative 03/25/2024 7:42 PM [facility] PROTEIN, RANDOM URINE 30 mg/dL(A) Negative 03/25/2024 7:[address] [facility] URINE GLUCOSE, QUAL 50 mg/dL(A) Negative 03/25/2024 7:[address] [facility] URINE KETONES Negative Negative 03/25/2024 7:42 PM [facility] UROBILINOGEN 1 mg/dL(A) Normal mg/dL 03/25/2024 7:42 PM [facility] URINE BLOOD 10 /uL(A) Negative mayela/ul 03/25/2024 7:[address] [facility] URINALYSIS COLOR Yellow 03/25/20 24 7:42 PM [facility] URINALYSIS CLARITY Clear 03/25/2024 7:42 PM [facility] WBC (Urine) 0-5 Negative, 0-5 /hpf 03/25/2024 7:42 PM [facility] URINE RBC'S 0-2 Negative, 0-2 /hpf 03/25/2024 7:42 PM [facility] EPITHELIAL CELLS Large amount squamous /lpf 03/25/2024 7:42 PM AGRICULTURE LABORER [facility] BACTERIA, URINE Few(A) Negative /hpf 03/25/2024 7:42 PM AGRICULTURE LABORER [facility] Urine URINE SPECIMEN COLLECTION, CLEAN CATCH / Unknown Non-Phlebotomy Collection / Unknown 03/25/2024 6:39 PM AGRICULTURE LABORER 03/25/2024 6:53 PM AGRICULTURE LABORER us Prabhjot Javier MD URINE ORDERABLES Final Re sult [facility] [address] [place] [address] documented in this encounter Visit Diagnoses Diagnosis [...] at 1930 New Bag 03/25/2024 7:19 PM AGRICULTURE LABORER 1,000 mL 500 mL/hr documented in this encounter Active and Recently Administered Medications Times are shown in AGRICULTURE LABORER. Scheduled Medication Order 03/23/2024 03/24/2024 03/25/2024 0.9 % sodium chloride solution (COMPLETED) at 500 mL/hr, Intravenous, ONCE, 1 dose, On Sat03/25/24 at 1930 1919 (New Bag - Prov ider: Maggie Pagan RN)[id number] (Stopped - Provider: Summer Escobar RN) documented in this encounter Care Teams Logging Truck Driver Relationship Specialty Start Date End Date Carmelita Olivera MD [address] [facility] [place] [address] PCP - General Family Medicine 03/25/24 documented as of this encounter
--- OUTSIDE RECORDS SUMMARY | 2024-03-31 16:34 | XMS_ITS | Clinical Summary ---
Author Organization [facility] Address [address] [place] [address] Phone Care Team Providers Care Pipe Foreman Name Role Phone Carmelita Olivera MD Primary [...] MOUTH EVERY DAY WITH BREAKFAST 3 Active [place]-3 1000 MG Capsule Take by mouth. Activ e Active Problems No known active problems Encounters Date Type Department Care Team Description 03/25/2024 6:31 PM PLUG OVERWRAP MACHINE TENDER - 03/25/2024 9:24 PM PLUG OVERWRAP MACHINE TENDER Emergency [facility] [address] [place] [address] Prabhjot Javier MD Visual hallucinations [...] Comments Blood Pressure 132/55 03/25/2024 9:15 PM PLUG OVERWRAP MACHINE TENDER Pulse 64 03/25/2024 9:15 PM PLUG OVERWRAP MACHINE TENDER Temperature 36.6 ??C (97.9 ??F) 03/25/2024 6:25 PM CS T Respiratory Rate 16 03/25/2024 9:15 PM PLUG OVERWRAP MACHINE TENDER Oxygen Saturation 97% 03/25/2024 9:15 PM PLUG OVERWRAP MACHINE TENDER Inhaled Oxygen Concentration - - Weight 58.1 kg (128 lb) 03/25/2024 6:25 PM PLUG OVERWRAP MACHINE TENDER Height 152.4 cm (5') 03/25/2024 6:25 PM PLUG OVERWRAP MACHINE TENDER Body Mass Index 25 03/25/2024 6:25 PM PLUG OVERWRAP MACHINE TENDER Plan of Treatment Health Maintenance Due Date [...] WITH AUTO DIFFERENTIAL STAT 03/25/2024 7:22 PM PLUG OVERWRAP MACHINE TENDER THYROID STIMULATING HORMONE (TSH) STAT 03/25/2024 7:22 PM PLUG OVERWRAP MACHINE TENDER CMP (COMPREHENSIVE METABOLIC PANEL) STAT 03/25/2024 7:22 PM PLUG OVERWRAP MACHINE TENDER COMPLETE BLOOD COUNT (CBC) WITH DIFF STAT 03/25/2024 7:22 PM PLUG OVERWRAP MACHINE TENDER URINALYSIS REFLEX IF INDICATED BY ABNORMAL RESULTS STAT 03/25/2024 6:39 PM PLUG OVERWRAP MACHINE TENDER from Last 3 Months Results * CBC with Auto Differential (03/25/2024 7:22 PM PLUG OVERWRAP MACHINE TENDER) [facility] WBC 6.01 4.00 - 12.00 10(3)/mcL 03/25/2024 7:32 PM PLUG OVERWRAP MACHINE TENDER [facility] RBC 4.56 3.80 - 5.30 10(6)/mcL 03/25/2024 7:32 PM PLUG OVERWRAP MACHINE TENDER [facility] HEMOGLOBIN (HGB) 12.3 12.0 - 15.8 g/dL 03/25/2024 7:32 PM PLUG OVERWRAP MACHINE TENDER [facility] HEMATOCRIT (HCT) 38.8 36.0 - 47.0 % 03/25/2024 7:32 PM PLUG OVERWRAP MACHINE TENDER [facility] MCV 85.1 82.0 - 96.0 fL 03/25/2024 7:32 PM PLUG OVERWRAP MACHINE TENDER [facility] MCH 27.0 26.0 - 34.0 pg 03/25/2024 7:32 PM PLUG OVERWRAP MACHINE TENDER [facility] MCHC 31.7 31.0 - 36.0 g/dL 03/25/2024 7:32 PM PLUG OVERWRAP MACHINE TENDER [facility] PLATELET COUNT 223 140 - 440 10(3)/mcL 03/25/2024 7:32 PM PLUG OVERWRAP MACHINE TENDER [facility] RDW 13.2 11.8 - 15.5 % 03/25/2024 7:32 PM PLUG OVERWRAP MACHINE TENDER [facility] MPV 10.5 9.7 - 12.4 fL 03/25/2024 7:32 PM PLUG OVERWRAP MACHINE TENDER [facility] NEUTROPHILS 54.5 47.0 - 73.0 % 03/25/2024 7:32 PM PLUG OVERWRAP MACHINE TENDER [facility] LYMPHOCYTES 35.6 18.0 - 42.0 % 03/25/2024 7:32 PM PLUG OVERWRAP MACHINE TENDER [facility] MONOCYTES 7.8 4.0 - 12.0 % 03/25/2024 7:32 PM PLUG OVERWRAP MACHINE TENDER [facility] EOSINOPHILS 1.3 0.0 - 5.0 % 03/25/2024 7:32 PM PLUG OVERWRAP MACHINE TENDER [facility] BASOPHILS 0.8 0.0 - 1.0 % 03/25/2024 7:32 PM PLUG OVERWRAP MACHINE TENDER [facility] ABSOLUTE NEUTROPHILS 3.27 1.60 - 7.70 10(3)/[facility] 03/25/2024 7:32 PM PLUG OVERWRAP MACHINE TENDER [facility] ABSOLUTE LYMPHOCYTES 2.14 1.30 - 3.20 10(3)/[facility] 03/25/2024 7:32 PM PLUG OVERWRAP MACHINE TENDER [facility] ABSOLUTE MONOCYTES 0.47 0.20 - 1.00 10(3)/[facility] 03/25/2024 7:32 PM PLUG OVERWRAP MACHINE TENDER [facility] ABSOLUTE EOSINOPHIL 0.08 0.00 - 0.40 10(3)/[facility] 03/25/2024 7:32 PM PLUG OVERWRAP MACHINE TENDER [facility] ABSOLUTE BASOPHILS 0.05 0.00 - 0.10 10(3)/[facility] 03/25/2024 7:32 PM PLUG OVERWRAP MACHINE TENDER [facility] NRBC PER 100 WBC 0 03/25/20 7:32 PM [facility] Blood Venipuncture / Unknown 03/25/2024 7:22 PM PLUG OVERWRAP MACHINE TENDER 03/25/2024 7:30 PM PLUG OVERWRAP MACHINE TENDER us Prabhjot Javier MD HEMATOLOGY ORDERABLES Fin al Result [facility] [address] [place] [address] * Thyroid Stimulating Hormone (TSH) (03/25/2024 7:22 PM PLUG OVERWRAP MACHINE TENDER) TSH 0.710 0.300 - 5.000 mIU/L 03/25/2024 8:12 PM PLUG OVERWRAP MACHINE TENDER [facility] Blood Venipuncture / Unknown 03/25/2024 7:22 PM PLUG OVERWRAP MACHINE TENDER 03/25/2024 7:30 PM PLUG OVERWRAP MACHINE TENDER us Prabhjot Javier MD CHEMISTRY ORDERABLES Marisel l Result [facility] [address] [place] [address] * (ABNORMAL) CMP (Comprehensive Metabolic Panel) (03/25/2024 7:22 PM PLUG OVERWRAP MACHINE TENDER) SODIUM 144 136 - 145 mmol/L 03/25/2024 [...] 1.3 1.0 - 2.2 03/25/2024 7:54 PM PLUG OVERWRAP MACHINE TENDER [facility] CALCIUM 9.9 8.7 - 10.5 mg/dL 03/25/2024 7:54 PM PLUG OVERWRAP MACHINE TENDER [facility] T BILI 0.4 0.2 - 1.2 mg/dL 03/25/2024 7:54 PM PLUG OVERWRAP MACHINE TENDER [facility] SGOT (AST) 17 5 - 34 U/L 03/25/2024 7:54 PM PLUG OVERWRAP MACHINE TENDER [facility] SGPT (ALT) 13 0 - 55 U/L 03/25/2024 7:54 PM PLUG OVERWRAP MACHINE TENDER [facility] ALKALINE PHOSPHATASE 76 40 - 150 U/L 03/25/2024 7:54 PM PLUG OVERWRAP MACHINE TENDER [facility] GFR, ESTIMATED >60 >=60 03/25/2024 7:54 PM PLUG OVERWRAP MACHINE TENDER [facility] Comment: Creatinine Clearance is the preferred criteria for selecting drug dose adjustments in renally impaired patients. ??The GFR is provided as additional pertinent clinical information. GFR is reported in mL/min/1.73 sq m. Calculation based on the Chronic Kidney Disease Epidemiology Collaboration (CKD- EPI) equation refit without adjustment for race. GFR, EST. >60 >=60 024 7:54 PM PLUG OVERWRAP MACHINE TENDER [facility] GFR, EST. NONAFRICAN 59(L) >=60 03/25/2024 7:54 PM PLUG OVERWRAP MACHINE TENDER [facility] Blood Venipuncture / Unknown 03/25/2024 7:22 PM PLUG OVERWRAP MACHINE TENDER 03/25/2024 7:30 PM PLUG OVERWRAP MACHINE TENDER us Prabhjot Javier MD CHEMISTRY ORDERABLES Marisel valencia Result [facility] [address] [place] [address] * (ABNORMAL) URINALYSIS REFLEX IF INDICATED BY ABNORMAL RESULTS (03/25/2024 6:39 PM PLUG OVERWRAP MACHINE TENDER) SPECIFIC GRAVITY 1.025 1.003 - 1.030 03/25/2024 [...] Non-Phlebotomy Collection / Unknown 03/25/2024 6:39 PM PLUG OVERWRAP MACHINE TENDER 03/25/2024 6:53 PM PLUG OVERWRAP MACHINE TENDER Prabhjot Javier MD URINE ORDERABLES Final Re sult [facility] [address] [place] [address] from Last 3 Months Insurance MEDICARE C [facility] Care Teams Pipe Foreman Relationship Specialty Start Date End Date Carmelita Olivera MD [address] [facility] [place] [address] PCP - General Family Medicine 03/25/24
--- OUTSIDE RECORDS SUMMARY | 2024-03-31 16:34 | XMS_ITS | Encounter Summary ---
Author Organization [facility] Address [address] [place] [address] Phone Care Team Providers Care Meter Mechanic Name Role Phone Jocelynn Coy Primary Care Provider [phone] Reason for Visit * Reason Comments Cough Generalized Body Aches Encounter Details Date Type Department Care Team (Latest Contact Info) Description 04/20/2023 8:40 AM CYLINDER DYER [facility] [place] [place] [address] Shaylee Vogel, GREASER HELPER, LOCOMOTIVE ENGINEER [address] [place] [address] COVID-19 (Primary Dx); [...] Comments Blood Pressure 122/60 04/20/2023 8:31 AM CYLINDER DYER Pulse 66 04/20/2023 8:31 AM CYLINDER DYER Temperature 35.9 ??C (96.6 ??F) 04/20/2023 8:31 AM CS T Respiratory Rate 18 04/20/2023 8:31 AM CYLINDER DYER Oxygen Saturation 98% 04/20/2023 8:31 AM CYLINDER DYER Inhaled Oxygen Concentration - - Weight 59.9 kg (132 lb) 04/20/2023 8:31 AM CYLINDER DYER Height - - Body Mass Index - - documented in this encounter Patient Instructions * Patient Instructions* Shaylee Vogel APRN, CNP - 04/20/2023 8:40 AM CYLINDER DYER You need to quarantine for at least [...] pcp in 10-14 days or as needed. NDER DYER * Attachments The following attachments cannot be sent through Care Everywhere. * COVID-19: Quarantine and Isolation - [facility] (05/11/21) (Bel[place]ian) * COVID-19: What to Do If You Are Sick - [facility] (03/22/2021) ([place]ian) documented in this encounter Progress Notes * Gricelda Green RMA - 04/20/2023 8:40 AM CST Annita Tasia complains of Pt is being seen for a cough, body aches. Pt took a positive covid test. Today's Review of Systems Respiratory: Positive for cough. NDER DYER * Gricelda Green RMA - 04/20/2023 8:40 AM CST Per order of Shaylee Vogel APRN, CNP bilateral nasal swab collected for POCT COVID. Patient tolerated well. NDER DYER * Shaylee Vogel APRN, CNP - 04/20/2023 [...] BY MOUTH EVERY DAY WITH BREAKFAST - [place]-3 1000 MG Capsule; Take by mouth. Patient [...] verified, with additions or corrections, as appropriate. NDER DYER documented in this encounter Plan of Treatment Not on file documented as of this encounter Procedures Procedure Name Priority Date/Time Associated Diagnosis Comments POC SARS-COV-2 BY MOLECULAR Routine 04/20/2023 8:39 AM CYLINDER DYER Cough in adult documented in this encounter Results * (ABNORMAL) POC SARS-COV-2 BY MOLECULAR (04/20/2023 8:39 AM CYLINDER DYER) SARSCOV2 Positive(A ) Negative, INVALID RESULT PROCEDURE CONTROL Valid 04/20/2023 8:39 AM CYLINDER DYER Shaylee Vogel APRN, CNP POINT OF CARE TEST ING (MANUAL) Final Result documented in this encounter Visit Diagnoses Diagnosis COVID-19- Primary Cough in adult documented in this encounter Additional Health Concerns Infection Onset Date Last Indicated Resolved Time COVID - 19 04/20/2023 04/20/2023 04/20/2023 8:46 AM CYLINDER DYER COVID - 19 Confirmed 04/20/2023 04/20/2023 024 12:16 AM CYLINDER DYER documented as of this encounter Care Teams Meter Mechanic Relationship Specialty Start Date End Date Jocelynn Coy DO [address] [facility] [address] [place] [id number] PCP - General Family Medicine 04/20/23 03/24/24 documented as of this encounter
--- OUTSIDE RECORDS SUMMARY | 2024-03-31 16:35 | XMS_ITS | Encounter Summary ---
Author Organization [facility] Healthcare Address [address] [place] [address] Care Team Providers Care Security Chief Museum Name Role Phone Brian Madera MD Unavailable [phone] Carmelita Olivera MD Primary Care Provide r Mikala Sheth MA Unavailable Reason for Visit * Reason Comments Unsuccessful Phone Call 1 Day 1 - UTC x 1 Encounter Details Date Type Department Care Team (Late st Contact Info) Description 11/21/2023 [place] ED Outreach [facility] Accountable Care Organization [address] [place] [address] Mikala Sheth MA [address] [place] [address] [address] [place] [id number] Social History Tobacco Use Types Packs/Day Years [...] on file Legal Sex Female 8:45 PM EMERGENCY VEHICLE OPERATOR Gender Identity Female 04/25/2021 2:46 PM EMERGENCY VEHICLE OPERATOR Sexual Orientation Straight 04/25/2021 2: 46 PM EMERGENCY VEHICLE OPERATOR documented as of this encounter Progress Notes * Mikala Sheth MA - 11/21/2023 10:13 AM CDT Care school standards coach attempted to reach patient in relation to patient's recent ED visit at [facility] [place] [facility] on 11/20/2023 (5 hours) for Chest pain, unspecified type Anxiety. Patient does need to follow up with primary care physician by 11/27/2023. Care school standards coach will attempt to reach patient again. Care school standards coach contact information was not left on patients voicemail due to it being full. [facility] letter sent to patient via [employer] [facility] x 1 outreach attempt. Thank you, Mikala Sheth [facility] ACO Care Tie Knitter Helper [facility] [phone] documented in this encounter Plan of Treatment Not on file documented as of this encounter Visit Diagnoses Not on filedocumented in this encounter Care Teams Security Chief Museum Relationship Specialty Start Date End Date Carmelita Olivera MD [address] [facility] [address] [place] [address] PCP - General Family Medicine 09/03/23 Brian Madera MD [address] [facility] [address] [place] [address] Consulting Physician Neurology 04/02/22 Mikala Sheth MA [address] [place] [address] [address] ACO Care Tie Knitter Helper 11/21/23 11/21/23 documented as of this encounter
--- OUTSIDE RECORDS SUMMARY | 2024-03-31 16:35 | XMS_ITS | Encounter Summary ---
Author Organization [facility] Healthcare Address [address] [place] [address] Care Team Providers Care Ribbon Winder Name Role Phone Brian aMdera MD Unavailable [phone] Carmelita Olivera MD Primary Care Provide r Reason for Visit * Reason Comments Hospital Follow Up 10/20/23 CHARI malcolm s nausea Encounter Details Date Type Department Care Team (Late st Contact Info) Description 10/23/2023 1:30 PM CDT Office Visit [facility] Medical Group Primary Care at [address] [place] [address] Carmelita Olivera MD [address] [place] [address] [address] [place] [address] Nausea (Primary Dx); Cyst of [...] on file Legal Sex Female 8:45 PM CITY PLANNING ENGINEER Gender Identity Female 04/25/2021 2:46 PM CITY PLANNING ENGINEER Sexual Orientation Straight 04/25/2021 2: 46 PM CITY PLANNING ENGINEER documented as of this encounter Last Filed [...] - 10/23/2023 1:30 PM CDT My medical services assistant and I are thankful you have trusted [...] female. Chief Complaint Hospital Follow Up (10/20/23 [facility] weakness nausea) HPI 83 y.o.female coming in [...] cyst documented in this encounter Care Teams Ribbon Winder Relationship Specialty Start Date End Date Carmelita Olivera MD [address] [facility] [address] PCP - General Family Medicine 09/03/23 Brian Madera MD [address] [facility] [address] [place] [address] Consulting Physician Neurology 04/02/22 documented as of this encounter
--- OUTSIDE RECORDS SUMMARY | 2024-03-31 16:35 | XMS_ITS | Encounter Summary ---
Author Organization [facility] Healthcare Address [address] [place] [address] Care Team Providers Care Supervisory Civil Engineer Name Role Phone Brian Madera MD Unavailable Carmelita Olivera MD Primary Care Provide r Reason for Visit * Reason Comments Constipation Stomach pains starte d today at adult day care Encounter Details Date Type Department Care Team (Late st Contact Info) Description 03/27/2024 6:30 PM MEDICAL ILLUSTRATOR Office Visit [facility] [place] [address] [place] [address] [address] [place] [address] Jacquelin Quinteros, NOR[place] [address] [place] [address] Constipation, unspecified constipation type (Primary Dx) Social History Tobacco Use Types Packs/Day Years Used Date Smoking Tobacco: Never Smokeless Tobacco: Never Tobacco Cessation:Counseling Given: Not Answered Alcohol Use Standard Drinks/Week Comments No 0 (1 standard drink = 0.6 oz pur e alcohol) [facility] Utilities Answer Date Recorded In the past [...] often do you attend chur ch or lutheran services? Never 12/17/2023 Do you belong to any clubs o r organizations such as christianity groups, unions, fraternal or athletic groups, or [...] any time in the past 12 m [facility], were you homeless or living in a correction (including now)? No 12/17/2023 Personal Safety Answer Date Recorded Have you ever been in or are you currently in a harmful physical or emotional relationship or is someone making you feel afraid or unsafe? Denies 11/20/2023 Comments No Sex and Gender Information Value Date Recorded Sex Assigned at Not on file Legal Sex Female 8:45 PM MEDICAL ILLUSTRATOR Gender Identity Female 04/25/2021 2:46 PM MEDICAL ILLUSTRATOR Sexual Orientation Straight 04/25/2021 2: 46 PM MEDICAL ILLUSTRATOR documented as of this encounter Last Filed Vital Signs Vital Sign Reading Time Taken Comments Blood Pressure 134/78 03/27/2024 6:33 PM MEDICAL ILLUSTRATOR Pulse 67 03/27/2024 6:33 PM MEDICAL ILLUSTRATOR Temperature 36.6 ??C (97.8 ??F) 03/27/2024 6:33 PM CS T Respiratory Rate 15 03/27/2024 6:33 PM MEDICAL ILLUSTRATOR Oxygen Saturation 99% 03/27/2024 6:33 PM MEDICAL ILLUSTRATOR Inhaled Oxygen Concentration - - Weight 58.1 kg (128 lb) 03/27/2024 6:33 PM MEDICAL ILLUSTRATOR Height 147.3 cm (4' 10 ) 03/27/2024 6:33 PM MEDICAL ILLUSTRATOR Body Mass Index 26.75 03/27/2024 6:33 PM MEDICAL ILLUSTRATOR documented in this encounter Patient Instructions * Patient Instructions* Jacquelin Quinteros NP - 03/27/2024 6:30 PM MEDICAL ILLUSTRATOR .talonce CAL ILLUSTRATOR documented in this encounter Progress Notes * Jacquelin Quinteros NP - 03/27/2024 6:30 PM CST Images from the original note were not included. Subjective/Objective Patient ID: Annita Bose is a 83 y.o. female. Chief Complaint Constipation (Stomach pains started today at adult day care) Presents to [facility] Care with complaint of sharp [...] ask questions, questions answered. Jacquelin Quinteros NP CAL ILLUSTRATOR documented in this encounter Plan of Treatment Not on file documented as of this encounter Visit Diagnoses Diagnosis Constipation, unspecified constipation type- Primary documented in this encounter Care Teams Supervisory Civil Engineer Relationship Specialty Start Date End Date Carmelita Olivera MD [address] [facility] [address] [place] [address] PCP - General Family Medicine 09/03/23 Brian Madera MD [address] [facility] [address] [place] [address] Consulting Physician Neurology 04/02/22 documented as of this encounter
--- OUTSIDE RECORDS SUMMARY | 2024-03-31 16:35 | XMS_ITS | Encounter Summary ---
Author Organization [facility] Healthcare Address [address] [place] [address] Care Team Providers Care Guest Attendant Name Role Phone Brian Madera MD Unavailable [phone] Carmelita Olivera MD Primary Care Provide r Reason for Visit * Reason Onset Date Comments Hospital Follow Up 03/26/2024 Encounter Details Date Type Department Care Team (Late st Contact Info) Description 03/26/2024 Telephone [facility] Medical Group Primary Care at [address] [place] [address] Carmelita Olivera MD [address] [place] [address] [address] [place] [address] Hospital Follow Up Social History Tobacco Use Types Packs/Day Years Used Date Smoking Tobacco: Never Smokeless Tobacco: Never Alcohol Use Standard Drinks/Week Comments No 0 (1 standard drink = 0.6 oz pur e alcohol) [facility] Utilities Answer Date Recorded In the past 12 months has [employer] electric, gas, oil, or water company threatened to shut off services in your home? No 12/17/2023 Social Connection and Isolat ion Panel [NHANES] Answer Date Recorded Frequency of Communication w ith Friends and Family Not on file 12/17/2023 How often do you get togethe r with friends or relatives? More than three times a week 12/17/2023 How often do you attend [facility] or amish services? Never 12/17/2023 Do you belong to [...] any time in the past 12 m [facility], were you homeless or living in a assisted (including now)? No 12/17/2023 Personal Safety Answer Date Recorded Have you ever been in or are you currently in a harmful physical or emotional relationship or is someone making you feel afraid or unsafe? Denies 11/20/2023 Comments No Sex and Gender Information Value Date Recorded Sex Assigned at Not on file Legal Sex Female 8:45 PM ROD BUSTER HELPER Gender Identity Female 04/25/2021 2:46 PM ROD BUSTER HELPER Sexual Orientation Straight 04/25/2021 2: 46 PM ROD BUSTER HELPER documented as of this encounter Miscellaneous Notes * Telephone Encounter - Delphine Key MA - 03/27/2024 8:22 AM CST Appt has been scheduled. BUSTER HELPER * Telephone Encounter - Renetta Mcginnis MA - 03/26/2024 2:32 PM CST This [facility] patient had an ED visit at [facility]- 03/25 - Dementia, Visual hallucinations. PCP appointment was not able to be scheduled at this time. Please call the pt to schedule on or before 04/01 to meet [facility]'s 7 day post ED follow up. Dtr stated can do M-T-W has to work Emilee and Fri Also would like to see if it is Okay for to take Melatonin at night with meds she is taking. BUSTER HELPER documented in this encounter Plan of Treatment Not on file documented as of this encounter Visit Diagnoses Not on filedocumented in this encounter Care Teams Guest Attendant Relationship Specialty Start Date End Date Carmelita Olivera MD [address] [facility] [address] [place] [address] PCP - General Family Medicine 09/03/23 Brian Madera MD [address] [facility] [address] [place] [address] Consulting Physician Neurology 04/02/22 documented as of this encounter
--- OUTSIDE RECORDS SUMMARY | 2024-03-31 16:35 | XMS_ITS | Referral Summary ---
Author Organization [facility] Medical Office Building B Address [address] [place] [address] Care Team Providers Care Ice Cream Dispenser Name Role Phone Brian Madera MD Unavailable Carmelita Olivera MD Primary Care Provide r Encounters Date Type Department Care Team Description 03/30/2024 Telephone [facility] Medical [facility] Primary Care at [address] [phone] Carmelita Olivera MD 03/27/2024 6:30 PM ACCESS CLERK Office Visit [facility] at [address] [place] [phone] Jacquelin Quinteros NP Constipation, unspecified constipation type (Primary Dx) 03/26/2024 Telephone [facility] Primary Care at [address] [phone] Carmelita Olivera MD Hospital Follow Up 03/26/2024 [place] [facility] Outreach [facility] Care Organization [address] [place] [phone] Renetta Mcginnis MA 01/30/2024 Telephone [facility] Medical [facility] Primary Care at [address] [place] [phone] GilCarmelita [place] MD Rollator 01/30/2024 Telephone [facility] Primary Care at [address] [place] [phone] Carmelita Olivera MD Persons with Disabilities Certification for Parking Placard 01/23/2024 1:30 PM CDT Office Visit [facility] [address] [facility] [address] [place] [phone] Kate Diaz NP 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); 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) 01/20/2024 Orders Only [facility] Primary Care at [address] [place] [phone] Carmelita Olivera MD 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) (Primary Dx); 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) 01/02/2024 7:30 PM CDT Office Visit [facility] at [address] [place] [phone] Kristen Vilchis NP Abscess of skin of neck (Primary Dx) from Last 3 Months Allergies Active Allergy Reactions Criticality Noted Date Comments Quetiapine Hallucinations Medium 05/20/2023 Medications lancets 31 gauge miscIndication s:Type 2 diabetes mellitus with hyperglycemia, without long-term current use of insulin ([facility]) 1 Device daily 100 each 3 10/04/19 21 Active blood-glucose meter kitIndications :Type 2 diabetes mellitus with hyperglycemia, without long-term current use of insulin ([facility]) 1 Device daily 1 each 10/19/19 21 Active blood glucose diagnostic stripIndicatio ns:Type 2 diabetes mellitus with hyperglycemia, without long-term current use of insulin ([facility]) Use one strip to monitor home [...] Seroquel. Assessment & Plan (04/25/2023 2:42 PM ACCESS CLERK): New start on Seroquel, take as directed. Re-evaluate need of continued use of medication at next appointment. Nail fungus 03/05/2023 Assessment & Plan (03/05/2023 1:36 PM ACCESS CLERK): Referred back to podiatry for further treatments. 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 Assessment & Plan (06/24/2023 10:21 PM CDT): Worsening, encouraged patient to follow up with neurology. Continue Namenda. Assessment & Plan (03/05/2023 1:36 PM ACCESS CLERK): Stable, currently on memantine. Doing well. Assessment & Plan (09/21/2022 7:35 PM CDT): Stable. Cont. Current prescription medications, memantine. Assessment & Plan (04/02/2022 4:24 PM ACCESS CLERK): Stable. Cont. Current prescription medications. Assessment & Plan (09/05/2021 1:48 PM CDT): Worsening, does not want to discontinue Exelon patch at this time. Will consult with psychiatry for further eval/mgmt. Assessment & Plan (03/31/2021 6:26 PM ACCESS CLERK): Will start Exelon patches. Decreased hearing of [...] months Assessment & Plan (03/05/2023 1:35 PM ACCESS CLERK): A1c at goal of less than 8.0, continue current prescription medications, atorvastatin, lisinopril, metformin xr. Assessment & Plan (09/21/2022 7:35 PM CDT): A1c at goal of less than 8.0, continue current prescription medications, atorvastatin, lisinopril, metformin xr. Assessment & Plan (04/02/2022 4:24 PM ACCESS CLERK): A1c at goal of less than 8.0, [...] 09/03/2018 Assessment & Plan (03/26/2020 8:15 PM ACCESS CLERK): Weight reduction, daily exercise and dietary modifications recommended. Assessment & Plan (12/04/2019 9:33 AM CDT): Weight reduction, daily exercise and dietary modifications recommended. Assessment & Plan (03/18/2019 12:18 PM ACCESS CLERK): Unchanged. Encouraged patient to decrease weight, increase [...] months Assessment & Plan (03/05/2023 1:31 PM ACCESS CLERK): Blood pressure at goal less than 140/90, continue current prescription medications, amlodipine, lisinopril. Assessment & Plan (09/21/2022 7:35 PM CDT): Blood pressure at goal less than 140/90, continue current prescription medications, lisinopril. Assessment & Plan (04/02/2022 4:24 PM ACCESS CLERK): Blood pressure is at goal of less [...] meds. Assessment & Plan (03/26/2020 8:15 PM ACCESS CLERK): Within normal range, low sodium diet recommended. Cont current meds. Assessment & Plan (12/04/2019 9:33 AM CDT): Stable. Cont. Current meds. Assessment & Plan (07/26/2019 8:22 PM CDT): Clinically improved, continue current meds. Assessment & Plan (03/18/2019 12:17 PM ACCESS CLERK): Waxing and waning, cont current meds. Assessment [...] appointment. Assessment & Plan (03/14/2018 12:51 PM ACCESS CLERK): Hypertension is improving with treatment. Continue current [...] appointment. Assessment & Plan (06/07/2017 1:13 PM ACCESS CLERK): Hypertension is unchanged. Continue current treatment regimen. Dietary sodium restriction. Regular aerobic exercise. Continue current medications. Blood pressure will be reassessed at the next regular appointment. Hyperlipidemia associated with type 2 diabetes otoniel spencer 06/07/2017 Assessment & Plan (09/02/2023 12:26 PM CDT): LDL goal of less than 100, continue current prescription medications, atorvastatin. Assessment & Plan (03/05/2023 1:36 PM ACCESS CLERK): LDL at goal of less than 100, continue current prescription medications, atorvastatin. Assessment & Plan (09/21/2022 7:34 PM CDT): LDL at goal of less than 100, continue current prescription medications, atorvastatin. Assessment & Plan (04/02/2022 4:24 PM ACCESS CLERK): LDL at goal of less than 100, continue current prescription medications. Assessment & Plan (10/08/2021 6:46 PM CDT): LDL at goal of < 100. Cont current meds. Assessment & Plan (03/31/2021 6:27 PM ACCESS CLERK): LDL at goal. Cont current Rx meds. Assessment & Plan (10/14/2020 6:22 PM CDT): LDL at goal of < 70, cont current mgmt. Assessment & Plan (09/28/2020 7:07 AM CDT): Clinically improved, continue current meds. Assessment & Plan (03/26/2020 8:15 PM ACCESS CLERK): Good control. Low chol diet recommended. Assessment & Plan (12/04/2019 9:33 AM CDT): Stable. Cont. Current meds. Assessment & Plan (07/26/2019 8:22 PM CDT): Stable. Cont. Current meds. Assessment & Plan (03/18/2019 12:17 PM ACCESS CLERK): Clinically improved, continue current meds. Assessment & [...] qhs Assessment & Plan (03/14/2018 12:52 PM ACCESS CLERK): Lipid abnormalities are improving with treatment. Nutritional counseling was provided. and Pharmacotherapy as ordered. Lipids will be reassessed 4 months. Atorvastatin 20mg po qd Assessment & Plan (12/06/2017 1:00 PM CDT): Lipid abnormalities are improving with treatment. Nutritional counseling was provided. and Pharmacotherapy as ordered. lipitor 20mg qd Lipids will be reassessed in 6 months. Assessment & Plan (06/07/2017 1:13 PM ACCESS CLERK): Lipid abnormalities are unchanged. Nutritional counseling was provided. and Pharmacotherapy as ordered. Lipids will be reassessed in 6 months. Generalized anxiety disorder 06/07/2017 Assessment & Plan (07/31/2023 3:45 PM CDT): Clinically improved, continue current prescription medications, lorazepam. Assessment & Plan (06/24/2023 10:22 PM CDT): Agree to increase lorazepam to 0.5 mg qam and 1 mg qpm. Assessment & Plan (04/25/2023 2:41 PM ACCESS CLERK): Will add Seroquel to daily regiment. Continue lorazepam as needed. Assessment & Plan (03/05/2023 1:33 PM ACCESS CLERK): Clinically improved, continue current prescription medications, lorazepam. Assessment & Plan (09/21/2022 7:34 PM CDT): Clinically improved, continue current prescription medications, lorazepam. Assessment & Plan (04/02/2022 4:23 PM ACCESS CLERK): Clinically improved, continue current prescription medications. Assessment & Plan (10/08/2021 6:46 PM CDT): Clinically improved, continue current prescription medications. Assessment & Plan (03/31/2021 6:26 PM ACCESS CLERK): Stable. Cont. Current prescription medications. Assessment & Plan (01/09/2021 3:31 PM CDT): Anxiety has been controlled. Will continue on lorazepam p.r.n. Assessment & Plan (09/28/2020 7:07 AM CDT): Stable. Cont. Current meds. Assessment & Plan (03/26/2020 8:15 PM ACCESS CLERK): Clinically improved, continue current meds. Assessment & Plan (12/04/2019 9:33 AM CDT): Clinically improved, continue current meds. Assessment & Plan (07/26/2019 8:22 PM CDT): Clinically improved, continue current meds. Assessment & Plan (03/18/2019 12:17 PM ACCESS CLERK): Clinically improved, continue current meds. Assessment & Plan (09/03/2018 5:29 PM CDT): Psychological condition is improving with treatment. Continue current treatment regimen. Regular aerobic exercise. Psychological condition will be reassessed at the next regular appointment. Lorazepam 0.5 mg q6h prn Assessment & Plan (08/06/2018 6:37 PM CDT): Stable. Cont. Current meds. Assessment & Plan (03/14/2018 12:52 PM ACCESS CLERK): Stable. Cont. Current meds. Lorazepam 0.5 mg q6 h prn Assessment & Plan (12/06/2017 1:00 PM CDT): At baseline, continue lorazepam 0.5 mg q6h prn Assessment & Plan (06/07/2017 1:13 PM ACCESS CLERK): Stable. Refill given. Resolved Problems Problem Noted [...] drink = 0.6 oz pur e alcohol) [facility] Utilities Answer Date Recorded In [...] often do you attend chur ch or protestant services? Never 12/17/2023 Do you belong to any clubs o r organizations such as mandaeism groups, unions, fraternal or athletic groups, or [...] in the past [facility], were you homeless or living in a [facility] (including now)? No 12/17/2023 Personal Safety Answer Date Recorded Have you ever been in or are you currently in a harmful physical or emotional relationship or is someone making you feel afraid or unsafe? Denies 11/20/2023 Comments No Sex and Gender Information Value Date Recorded Sex Assigned at Not on file Legal Sex Female 8:45 PM ACCESS CLERK Gender Identity Female 04/25/2021 2:46 PM ACCESS CLERK Sexual Orientation Straight 04/25/2021 2: 46 PM ACCESS CLERK Last Filed Vital Signs Vital Sign Reading Time Taken Comments Blood Pressure 134/78 03/27/2024 6:33 PM ACCESS CLERK Pulse 67 03/27/2024 6:33 PM ACCESS CLERK Temperature 36.6 ??C (97.8 ??F) 03/27/2024 6:33 PM CS T Respiratory Rate 15 03/27/2024 6:33 PM ACCESS CLERK Oxygen Saturation 99% 03/27/2024 6:33 PM ACCESS CLERK Inhaled Oxygen Concentration - - Weight 58.1 kg (128 lb) 03/27/2024 6:33 PM ACCESS CLERK Height 147.3 cm (4' 10 ) 03/27/2024 6:33 PM ACCESS CLERK Body Mass Index 26.75 03/27/2024 6:33 PM ACCESS CLERK Plan of Treatment Not on file Procedures Procedure Name Priority Date/Time Associated Diagnosis Comments KS INCISION & DRAINAGE ABSCESS SIMPLE/SINGLE Routine 01/02/2024 7:30 PM CDT Abscess of skin of neck EGFR STAT 11/20/2023 1:47 PM CDT HEMOGLOBIN A1C Routine 09/03/2023 9:42 AM CDT Type 2 diabetes mellitus with hyperglycemia, without long-term current use of insulin (CMS/HCC) (HCC) DIABETES EYE EXAM Routine 05/21/2023 LIPID PANEL Routine 03/18/2023 1:58 PM ACCESS CLERK Type 2 diabetes mellitus with hyperglycemia, without long-term current use of insulin (CMS/HCC) (HCC) Hypertension associated with diabetes (HCC) ALBUMIN CREATININE RATIO, URINE Routine 03/18/2023 1:58 PM ACCESS CLERK Type 2 diabetes mellitus with hyperglycemia, without long-term current use of insulin (CMS/HCC) (HCC) DIABETES FOOT EXAM Routine 03/05/2023 from Last 3 Months or Most Recently Relevant to Health Maintenance Results * KS INCISION & DRAINAGE ABSCESS SIMPLE/SINGLE (01/02/2024 7:30 [...] BLOOD ORDERABLES Final Res ult [facility] ([place]) [address] [facility] Department [place] [address] * (ABNORMAL) Hemoglobin A1c (09/03/2023 9:42 AM CDT) Hgb A1C 6.7(H) 4.0 - 5.6 % Estimated Average Glucose 146 mg/dL JOSE [facility] ([place]) Comment: The ADA recommends reporting an estimated Average Glucose (eAG) with all Hemoglobin A1c results using the equation derived from a study of 507 normal and diabetic adults. ??Minority populations were underrepresented and children were not included. ?? (Diabetes Care 31:8609-2955, 2007). ??The eAG is not equivalent to a fasting glucose. Blood 09/03/2023 9:42 AM CDT 09/03/2023 10:23 AM CDT Carmelita Olivera MD LAB BLOOD ORDERABLES Final Result [facility] ([place]) 1 [facility] Department [place] [address] * DIABETES EYE EXAM (05/21/2023) [facility] SCRIBED DIABETIC DILATED EYE EXAM Normal Historical Provider HEALTH MAINTENANCE Final Result * Albumin Creatinine Ratio, Urine (03/18/2023 1:58 PM ACCESS CLERK) [facility] Albumin Ur 47.4 mg/L [facility] ([place]) Comment: Interpretive Data No reference range established. Current interpretive data was last revised 2018. Testing performed by: [address] [place] [address] Creatinine Ur 383.9 mg/dL [facility] ([place]) Comment: Interpretive Data No reference range established. Current interpretive data was last revised 2018. Testing performed by: [facility], [address] [place] [address]., [address] Albumin Creatinine Ratio, Ur 12 1 - 29 mg/g [facility] ([place]) Comment:Testing performed by : [address] [address] Urine 03/18/2023 1:58 PM ACCESS CLERK 03/19/2023 9:36 AM ACCESS CLERK us Jocelynn Coy DO LAB URINE ORDERABLES Final Result [facility] ([place]) 1 [facility] Department [place] [address] * Lipid panel (03/18/2023 1:58 PM ACCESS CLERK) Cholesterol 167 30 - 199 mg/dL JOSE [...] on 2017. Chol/HDL ratio 2 [facility] ([place]) Blood 03/18/2023 1:58 PM ACCESS CLERK 03/18/2023 3:53 PM ACCESS CLERK Jocelynn Coy DO LAB BLOOD ORDERABLES Final Result [facility] ([place]) 1 [facility] Department [place] [address] * DIABETES FOOT EXAM (03/05/2023) SCRIBED DIABETIC FOOT EXAM Normal Historical Provider MD HEALTH MAINTENANCE Final Result from Last 3 Months or Most Recently Relevant to Health Maintenance Insurance [facility] Member Subscriber Plan / Payer (Ef fective 2017-Present) Name:Annita Bose Relation to Subscriber:Self Name:Annita Bose Payer ID:[id number] (NAIC) Type:MEDICARE RISK OTHER Address: [place] [id number] [place] [address] [employer] Member Subscriber Plan / Payer ( fective 2017-Present) Name:Annita Bose Relation to Subscriber:Self Name:Annita Bose Payer ID:[id number] (NAIC) Type:MEDICARE RISK OTHER Address: [place] [id number] Care Teams Ice Cream Dispenser Relationship Specialty Start Date End Date Carmelita Olivera MD [address] [facility] [place] [address] PCP - General Family Medicine 09/03/23 Brian Madera MD [address] [facility] [address] [place] [address] Consulting Physician Neurology 04/02/22
--- OUTSIDE RECORDS SUMMARY | 2024-03-31 16:35 | XMS_ITS | Encounter Summary ---
Author Organization [facility] Healthcare Address [address] [place] [address] Care Team Providers Care Meat Hostess Name Role Phone Brian Madera MD Unavailable [phone] Carmelita Olivera MD Primary Care Provide r Reason for Visit * Reason Comments Nausea Encounter Details Date Type Department Care Team (Late st Contact Info) Description 10/20/2023 8:55 PM CDT - 10/20/2023 9:57 PM CDT Emergency [facility] Emergency Department [address] [place] [address] Tiago Kerr MD [address] [place] [address] [address] [place] [id number] Weakness (Primary Dx); Nausea and vomiting, unspecified [...] on file Legal Sex Female 8:45 PM NATURAL HISTORY COLLECTIONS CURATOR Gender Identity Female 04/25/2021 2:46 PM NATURAL HISTORY COLLECTIONS CURATOR Sexual Orientation Straight 04/25/2021 2: 46 PM NATURAL HISTORY COLLECTIONS CURATOR documented as of this encounter Last Filed [...] sent through Care Everywhere. * Vomiting (Adult) (Indonesian) documented in this encounter Medications at Time [...] long-term current use of insulin ([facility]) 1 Device daily 100 each 3 10/03/2020 memantine (NAMENDA) 10 mg tablet TAKE 1 TABLET BY MOUTH TWICE A DAY 180 tablet 1 09/12/2023 sodium chloride (TRISTAN 128) 5 % ophthalmic solution Administer 1 drop into both eyes as needed 02/27/2023 amLODIPine (NORVASC) 10 mg tabletIndication s:Hypertension associated with diabetes ([facility]) TAKE 1 TABLET BY MOUTH EVERY DAY AT NIGHT 90 tablet 1 07/29/2023 4 atorvastatin (LIPITOR) 20 mg tabletIndication s:Hyperlipidemia associated with type 2 diabetes mellitus ([facility]) TAKE 1 TABLET BY MOUTH EVERY DAY AT NIGHT 90 tablet 1 07/29/2023 4 lisinopriL (PRINIVIL,ZESTRI L) 2.5 mg tabletIndication s:Type 2 diabetes mellitus with hyperglycemia, without long-term current use of insulin ([facility]),Hypertensi on associated with diabetes ([facility]) Take 1 tablet (2.5 mg total) by mouth daily 90 tablet 3 09/20/2022 4 LORazepam (ATIVAN) 0.5 mg tabletIndication s:anxiety Take 1 tab qam and 2 tab qpm prn anxiety. 90 tablet 5 06/24/2023 4 metFORMIN XR (GLUCOPHAGE XR) 500 mg 24 hr tabletIndication s:Type 2 diabetes mellitus with hyperglycemia, without long-term current use of insulin ([facility]) TAKE 1 TABLET BY MOUTH EVERY [...] late onset Alzheimer's dementia with psychotic disturbance ([facility]) 03/30/2021 Decreased hearing of both ears 10/13/2020 Type 2 diabetes mellitus with hyperglycemia, without long-term current use of insulin ([facility]) ([facility]) 10/03/2020 Body mass index (BMI) of 25.0 to 25.9 in adult 09/03/2018 Hypertension associated with diabetes ([facility]) 06/07/2017 Hyperlipidemia associated with type 2 diabetes mellitus ([facility]) 06/07/2017 Generalized anxiety disorder 06/07/2017 No [...] Ref Range eGFR 65 >=60 mL/min/1.73 m2 [facility] Medical Decision Making ED Course as of [...] eGFR (10/20/2023 8:48 PM CDT) Pathologist [facility] eGFR 65 >=60 mL/min/1. 73 m2 Comment: [...] BLOOD ORDERABLES Final Res ult JOSE [facility]EL[facility] ([place]) 1 [facility] Department [place] [address] * Differential, auto (10/20/2023 8:48 PM CDT) Pathologist [facility] Neutrophil abs 3.9 1.5 - 6.5 K/cumm [...] Final Res ult [facility] ([place]) 1 [facility] Department [place] [address] * (ABNORMAL) Comprehensive metabolic panel (10/20/2023 8:48 [...] Final Res ult [facility] ([place]) 1 [facility] [place] [address] * (ABNORMAL) CBC with auto differential (10/20/2023 [...] Final Res ult JOSE [facility] ([place]) 1 [facility] [place] [address] documented in this encounter Visit Diagnoses Diagnosis Weakness- Primary Other malaise and fatigue Nausea and vomiting, unspecified vomiting type documented in this encounter Care Teams Meat Hostess Relationship Specialty Start Date End Date Carmelita Olivera MD [address] [facility] [address] [place] [address] PCP - General Family Medicine 09/03/23 Brian Madera MD [address] [facility] [address] [place] [address] Consulting Physician Neurology 04/02/22 documented as of this encounter
--- OUTSIDE RECORDS SUMMARY | 2024-03-31 16:35 | XMS_ITS | Encounter Summary ---
Author Organization [facility] Healthcare Address [address] [place] [address] Care Team Providers Care Cost Accounting Analyst Name Role Phone Brian Madera MD Unavailable [phone] Carmelita Olivera MD Primary Care Provide r Yuliana Simmons [facility] Unavailable [phone] Reason for Visit * Reason Onset Date Comments Rollator 01/30/2024 Encounter Details Date Type Department Care Team (Late st Contact Info) Description 01/30/2024 Telephone [facility] Primary Care at [address] [place] [phone] Carmelita Olivera MD [address] [place] [address] Rollator Social History Tobacco Use Types Packs/Day Years Used Date Smoking Tobacco: Never Smokeless Tobacco: Never Alcohol Use Standard Drinks/Week Comments No 0 (1 standard drink = 0.6 oz pur e alcohol) [facility] Utilities Answer Date Recorded In the past [...] often do you attend chur ch or adventist services? Never 12/17/2023 Do you belong to any clubs o r organizations such as confucianism groups, unions, fraternal or athletic groups, or [...] were you homeless or living in a half-way (including now)? No 12/17/2023 Personal Safety Answer Date Recorded Have you ever been in or are you currently in a harmful physical or emotional relationship or is someone making you feel afraid or unsafe? Denies 11/20/2023 Comments No Sex and Gender Information Value Date Recorded Sex Assigned at Not on file Legal Sex Female 8:45 PM FUEL CELL BINDER Gender Identity Female 04/25/2021 2:46 PM FUEL CELL BINDER Sexual Orientation Straight 04/25/2021 2: 46 PM FUEL CELL BINDER documented as of this encounter Miscellaneous Notes * Telephone Encounter - Yuliana Simmons LCSW - 01/30/2024 2:[address] Olivera, My name is Yuliana Simmons LCSW and I am a Clinical Bookkeeper Receptionist with the [facility]'s ([facility]) Accountable Care Organization (ACO). The patient's daughter, Toyin, asks if you'd order the patient a rollator. If you're agreeable, please place an order into [employer] and have the order sent to [facility] (they don't check for orders in Epic). [facility] Thanks for your time and consideration. TANMAY Carrillo, ELVIRA Clinical Bookkeeper Receptionist [facility] ([facility]) Accountable Care Organization (ACO) documented in this encounter Plan of Treatment Not on file documented as of this encounter Visit Diagnoses Not on filedocumented in this encounter Care Teams Cost Accounting Analyst Relationship Specialty Start Date End Date Carmelita Olivera MD [address] [place] [address] PCP - General Family Medicine 09/03/23 Brian Madera MD [address] [place] [address] Consulting Physician Neurology 04/02/22 Yuliana Simmons, [address] [place] [id number] Bookkeeper Receptionist Bead Forming Machine Operator 12/12/23 02/16/24 documented as of this encounter
--- OUTSIDE RECORDS SUMMARY | 2024-03-31 16:35 | XMS_ITS | Encounter Summary ---
Author Organization [facility] Healthcare Address [address] [place] [address] Care Team Providers Care Assistant Financial Accountant Name Role Phone Brian Madera MD Unavailable [phone] Carmelita Olivera MD Primary Care Provide r Reason for Visit * Reason Onset Date Comments Referral Request 09/12/2023 Encounter Details Date Type Department Care Team (Late st Contact Info) Description 09/12/2023 Telephone [facility] Medical Group Primary Care at [address] [place] [address] Carmelita Olivera MD [address] [place] [address] [address] [place] [address] Referral Request Social History Tobacco [...] on file Legal Sex Female 8:45 PM MIX TECHNICIAN Gender Identity Female 04/25/2021 2:46 PM MIX TECHNICIAN Sexual Orientation Straight 04/25/2021 2: 46 PM MIX TECHNICIAN documented as of this encounter Miscellaneous Notes * Telephone Encounter - Ivette Davenport - 09/12/2023 11:21 AM CDT Spoke with Megan from [facility] and informed her that is still on [...] seeing a nurse practitioner or physician assistant banquet manager, list the ALTITUDE CHAMBER TECHNICIAN/PA, but also their collaborating doctor): Arya Fernández Specialty: Optometrists Address: [address] [place] [address], Zip: [place] [address] Diagnosis Code/Symptom/Reason Patient is being seen: eye exam Date of Appointment: 09/12/23 NPI#: [id number] Tax ID#: [id number] Is insurance in chart up to date? Yes Additional Comments: Patient is at the eye office now. CS will send over as HP. Does message need to be routed? Yes-Action Needed documented in this encounter Plan of Treatment Not on file documented as of this encounter Visit Diagnoses Not on filedocumented in this encounter Care Teams Assistant Financial Accountant Relationship Specialty Start Date End Date Carmelita Olivera MD [address] [facility] [address] [place] [address] PCP - General Family Medicine 09/03/23 Brian Madera MD [address] [facility] [address] [place] [address] Consulting Physician Neurology 04/02/22 documented as of this encounter
--- OUTSIDE RECORDS SUMMARY | 2024-03-31 16:35 | XMS_ITS | Encounter Summary ---
Author Organization [facility] Healthcare Address [address] [place] [address] Care Team Providers Care Shingle Sawyer Name Role Phone Brian Madera MD Unavailable [phone] Carmelita Olivera MD Primary Care Provide r Yuliana Simmons [facility] Unavailable [phone] Reason for Visit * Reason Onset Date Comments Persons with Disabilities Certification for Park rasheeda [place] 01/30/2024 Encounter Details Date Type Department Care Team (Late st Contact Info) Description 01/30/2024 Telephone [facility] Medical Group Primary Care at [address] [address] Carmelita Olivera MD [address] [place] [address] Persons with Disabilities Certification for Parkinosbaldo Placard Social History Tobacco Use Types Packs/Day Years Used Date Smoking Tobacco: Never Smokeless Tobacco: Never Alcohol Use Standard Drinks/Week Comments No 0 (1 standard drink = 0.6 oz pur e alcohol) [facility] Utilities Answer Date Recorded In [...] often do you attend chur ch or sabianist services? Never 12/17/2023 Do you belong to [...] any time in the past 12 m [facility], were you homeless or living in [...] on file Legal Sex Female 8:45 PM CNC SERVICE TECHNICIAN Gender Identity Female 04/25/2021 2:46 PM CNC SERVICE TECHNICIAN Sexual Orientation Straight 04/25/2021 2: 46 PM CNC SERVICE TECHNICIAN documented as of this encounter Miscellaneous [...] Simmons LCSW and I am a Clinical Glass Belt Sander with the [facility]'s ([facility]) Accountable Care Organization (ACO). Ms. Annita Bose's daughter, Toyin, asks if you'd complete the paperwork for Annita to get a handicap placard. I found the following website that appears to be the application that needs to be completed: [email or web address] Thanks for your time and consideration. Yuliana Simmons, TANMAY, COMPLIANCE PROGRAM MANAGER Clinical Glass Belt Sander [facility] ([facility] Accountable Care Organization (ACO) documented in this encounter Plan of Treatment Not on file documented as of this encounter Visit Diagnoses Not on filedocumented in this encounter Care Teams Shingle Sawyer Relationship Specialty Start Date End Date Carmelita Olivera MD [address] [facility] [address] [place] [address] PCP - General Family Medicine 09/03/23 Brian Madera MD [address] [facility] [address] [place] [address] Consulting Physician Neurology 04/02/22 Yuliana Simmons LCSW [address] [place] [address] [address] [place] [address] Glass Belt Sander Dining Services Director 12/12/23 02/16/24 documented as of this encounter
--- OUTSIDE RECORDS SUMMARY | 2024-03-31 16:35 | XMS_ITS | Encounter Summary ---
Author Organization [facility] Healthcare Address [address] [place] [address] Care Team Providers Care Philosophy Professor Name Role Phone Brian Madera MD Unavailable [phone] Carmelita Olivera MD Primary Care Provide r Reason for Visit * Reason Onset Date Comments Care Software Application Tester [facility] 10/22/2023 [facility] Encounter Details Date Type Department Care Team (Late st Contact Info) Description 10/22/2023 Telephone [facility] Medical Group Primary Care at [address] [place] [address] Mikala Sheth, [address] [place] [address] Care Software Application Tester [facility] ([facility] ) Social History Tobacco Use Types Packs/Day [...] on file Legal Sex Female 8:45 PM FRONT END SOFTWARE ENGINEER Gender Identity Female 04/25/2021 2:46 PM FRONT END SOFTWARE ENGINEER Sexual Orientation Straight 04/25/2021 2: 46 PM FRONT END SOFTWARE ENGINEER documented as of this encounter Miscellaneous Notes * Telephone Encounter - Terra Villasenor MA - 10/22/2023 10:46 AM CDT Contacted patients daughter and was able to get her scheduled for an er follow up for 10/23/2023 * Telephone Encounter - Mikala Sheth MA - 10/22/2023 9:24 AM CDT This Essence patient had an ED visit at [facility] for weakness nausea and vomiting, unspecified vomiting type on 10/20/2023. PCP appointment was not able to be scheduled at this time due to no provider availability within recommended time frame. Please call the pt to schedule on or before 10/27[facility]2023 [facility]. Thank you, Mikala Sheth CMA ACO Care Software Application Tester [facility] [phone] documented in this encounter Plan of Treatment Not on file documented as of this encounter Visit Diagnoses Not on filedocumented in this encounter Care Teams Philosophy Professor Relationship Specialty Start Date End Date Carmelita Olivera MD [address] [facility] [address] [place] [address] PCP - General Family Medicine 09/03/23 Brian Madera MD [address] [facility] [address] [place] [address] Consulting Physician Neurology 04/02/22 documented as of this encounter
--- OUTSIDE RECORDS SUMMARY | 2024-03-31 16:35 | XMS_ITS | Encounter Summary ---
Author Organization [facility] Healthcare Address [address] [place] [address] Care Team Providers Care Net Application Support Specialist Name Role Phone Brian Madera MD Unavailable [phone] Carmelita Olivera MD Primary Care Provide r [...] on file Legal Sex Female 8:45 PM INSPECTOR PRINTED CIRCUIT BOARDS Gender Identity Female 04/25/2021 2:46 PM INSPECTOR PRINTED CIRCUIT BOARDS Sexual Orientation Straight 04/25/2021 2: 46 PM INSPECTOR PRINTED CIRCUIT BOARDS documented as of this encounter Medications at Time of Discharge blood glucose diagnostic stripIndications :Type 2 diabetes mellitus with hyperglycemia, without long-term current use of insulin ([facility]) Use one strip to monitor home blood sugars daily. 100 each 3 11/07/2020 blood-glucose meter kitIndications:T ype 2 diabetes mellitus with hyperglycemia, without long-term current use of insulin ([facility]) 1 Device daily 1 each 10/18/2020 coenzyme Q10 100 mg capsule Take 1 capsule (100 mg total) by mouth daily donepeziL (ARICEPT) 5 mg tablet TAKE 1 TABLET BY MOUTH EVERY DAY AT NIGHT 90 tablet 1 10/09/2023 lancets 31 gauge miscIndications: Type 2 diabetes mellitus with hyperglycemia, without long-term current use of insulin ([facility]) 1 Device daily 100 each 3 10/03/2020 memantine (NAMENDA) 10 mg tablet TAKE 1 TABLET BY MOUTH TWICE A DAY 180 tablet 1 09/12/2023 sodium chloride (TRISTAN 128) 5 % ophthalmic solution Administer 1 drop into both eyes as needed 02/27/2023 amLODIPine (NORVASC) 10 mg tabletIndication s:Hypertension associated with diabetes ([facility]) TAKE 1 TABLET BY MOUTH EVERY DAY AT NIGHT 90 tablet 1 07/29/2023 4 atorvastatin (LIPITOR) 20 mg tabletIndication s:Hyperlipidemia associated with type 2 diabetes mellitus ([facility]) TAKE 1 TABLET BY MOUTH EVERY DAY AT NIGHT 90 tablet 1 07/29/2023 4 lisinopriL (PRINIVIL,ZESTRI L) 2.5 mg tabletIndication s:Type 2 diabetes mellitus with hyperglycemia, without long-term current use of insulin ([facility]),Hypertensi on associated with diabetes ([facility]) Take 1 tablet (2.5 [...] on filedocumented in this encounter Care Teams Net Application Support Specialist Relationship Specialty Start Date End Date Carmelita Olivera MD 2 [facility] [address] [place] [address] PCP - General Family Medicine 09/03/23 Brian Madera MD 4 [facility] [address] [place] [address] Consulting Physician Neurology 04/02/22 documented as of this encounter
--- OUTSIDE RECORDS SUMMARY | 2024-03-31 16:35 | XMS_ITS | Encounter Summary ---
Author Organization [facility] Healthcare Address [address] [place] [address] Care Team Providers Care Oracle Fusion Consultant Name Role Phone Brian Madera MD Unavailable [phone] Carmelita Olivera MD Primary Care Provide r Reason for Visit * Reason Comments Chest Pain Encounter Details Date Type Department Care Team (Late st Contact Info) Description 11/20/2023 12:59 PM CDT - 11/20/2023 6:32 PM CDT Emergency [facility] Emergency Department [address] [place] [address] Tiago Kerr MD [address] [place] [address] [address] [place] [address] Emigdio Mortensen MD [address] [place] [address] [place] [address] Chest pain, unspecified type (Primary Dx); Anxiety [...] on file Legal Sex Female 8:45 PM MECHANICAL MAINTENANCE ENGINEER Gender Identity Female 04/25/2021 2:46 PM MECHANICAL MAINTENANCE ENGINEER Sexual Orientation Straight 04/25/2021 2: 46 PM MECHANICAL MAINTENANCE ENGINEER documented as of this encounter Last [...] without long-term current use of insulin ([facility]) Use one strip to monitor home blood sugars daily. 100 each 3 11/07/2020 blood-glucose meter kitIndications:T ype 2 diabetes mellitus with hyperglycemia, without long-term current use of insulin ([facility]) 1 Device daily 1 each 10/18/2020 coenzyme Q10 100 mg capsule Take 1 capsule (100 mg total) by mouth daily donepeziL (ARICEPT) 5 mg tablet TAKE 1 TABLET BY MOUTH EVERY DAY AT NIGHT 90 tablet 1 10/09/2023 lancets 31 gauge miscIndications: Type 2 diabetes mellitus with hyperglycemia, without long-term current use of insulin ([facility]) 1 Device daily 100 each [...] without long-term current use of insulin ([facility]),Hypertensi on associated with diabetes (HCC) Take 1 tablet (2.5 mg total) by mouth daily 90 tablet 3 09/20/2022 4 LORazepam (ATIVAN) 0.5 mg tabletIndication s:anxiety Take 1 tab qam and 2 tab qpm prn anxiety. 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 ([facility]) 03/30/2021 Decreased hearing of both ears 10/13/2020 Type 2 diabetes mellitus with hyperglycemia, without long-term current use of insulin ([facility]) ([facility]) 10/03/2020 Body mass index (BMI) of 25.0 to 25.9 in adult 09/03/2018 Hypertension associated with diabetes ([facility]) 06/07/2017 Hyperlipidemia associated with type 2 diabetes mellitus ([facility]) 06/07/2017 Generalized anxiety disorder 06/07/2017 No [...] be discharged home. Emigdio Mortensen MD 11/20/23 0628 * ED Procedure Note - Tiago Kerr [...] BLOOD ORDERABLES Final Res ult [facility] ([place]) 1 [facility] Department [place] [address] * eGFR (11/20/2023 1:47 PM CDT) eGFR [...] Final Res ult [facility] ([place]) 1 [facility] Department [place] [address] * Differential, auto (11/20/2023 1:47 PM CDT) [...] ORDERABLES Final Res ult Performing Organization Address City/[facility]/ZIP Co de Phone Number [facility] ([place]) 1 [facility] [place] [address] * Troponin T high-sensitivity series (baseline, 2hr, [...] ORDERABLES Final Res ult Performing Organization Address City/[facility]/ZIP Co de Phone Number [facility] ([place]) 1 [facility] [place] [address] * (ABNORMAL) Comprehensive metabolic panel (11/20/2023 1:47 PM CDT) Sodium 140 135 - 145 mmol/L Potassium, pl 4.0 3.3 - 4.9 mmol/L [facility] ([place]) Chloride 103 97 - 110 [...] Final Res ult [facility] ([place]) 1 [facility] Department [place] [address] * (ABNORMAL) CBC with auto differential (11/20/2023 [...] Final Res ult [facility] ([place]) 1 [facility] Department [place] [address] * XR Chest 1 Vw Portable (if [...] PM T: ??11/20/2023 1:39 PM Report ID: [id number] Reading Location: ??[id number] Procedure Note Tad De Jesus MD - [...] De Jesus M.D. MZ: MZ Report ID: [id number] Reading Location: [id number] Tiago Kerr MD IMG XR PROCEDURES Final Result * ECG 12 lead (11/20/2023 12:55 PM CDT) 11/20/2023 12:5 5 PM CDT Narrative [facility] - 11/20/2023 2:43 PM CDT Vent Rate: 71 bpm RR Interval: 841 msec NE Interval: 156 msec QRS Duration: 89 msec QT Interval: 367 msec QTC Interval: 389 msec P-R-T [place]: 51 - -2 - 31 degrees IMPRESSION: SINUS RHYTHM LOW QRS VOLTAGE IN PRECORDIAL LEADS ??[QRS DEFLECTION < 1.0 mV IN CHEST LEADS] BORDERLINE ECG NO CHANGE FROM PREVIOUS TRACING NOTED Electronically Signed By: Garcia Galicia MD Tiago Kerr MD ECG ORDERABLES Final Result [facility] documented in this encounter Visit Diagnoses Diagnosis [...] 11/20/2023 documented in this encounter Care Teams Oracle Fusion Consultant Relationship Specialty Start Date End Date Carmelita Olivera MD 2 [facility] [address] [place] [address] PCP - General Family Medicine 09/03/23 Brian Madera MD 4 [facility] [address] [place] [address] Consulting Physician Neurology 04/02/22 documented as of this encounter
--- OUTSIDE RECORDS SUMMARY | 2024-03-31 16:35 | XMS_ITS | Encounter Summary ---
Author Organization [facility] Healthcare Address [address] [place] [address] Care Team Providers Care Military Cook Name Role Phone Brian Madera MD Unavailable [phone] Carmelita Olivera MD Primary Care Provide r Yuliana Simmons [facility] Unavailable Reason for Visit * Reason Onset Date Comments Symptom Based Call 12/11/2023 Encounter Details Date Type Department Care Team (Late st Contact Info) Description 12/11/2023 Telephone [facility] Medical Group Primary Care at [address] [place] [address] Cayla Joya, OFFICE TECHNOLOGIST [address] [place] [address] [address] [place] [address] Symptom Based Call Social History Tobacco [...] on file Legal Sex Female 8:45 PM FURNACE COMBINATION ANALYST Gender Identity Female 04/25/2021 2:46 PM FURNACE COMBINATION ANALYST Sexual Orientation Straight 04/25/2021 2: 46 PM FURNACE COMBINATION ANALYST documented as of this encounter Miscellaneous [...] please were called. Voicemail left and care public speaking coach will send message for appointment and will have social work referral, Cayla Joya LPN Care Flower Shop Manager [facility] Group Accountable Care Organization [phone] documented in this encounter Plan of Treatment Not on file documented as of this encounter Visit Diagnoses Not on filedocumented in this encounter Care Teams Military Cook Relationship Specialty Start Date End Date Carmelita Olivera MD [address] [facility] [address] [place] [address] PCP - General Family Medicine 09/03/23 Brian Madera MD [address] [facility] [address] [place] [address] Consulting Physician Neurology 04/02/22 Yuliana Simmons, [address] [place] [address] Lawnmower Repair Mechanic Training Systems Officer 12/12/23 02/16/24 documented as of this encounter
--- OUTSIDE RECORDS SUMMARY | 2024-03-31 16:35 | XMS_ITS | Encounter Summary ---
Author Organization [facility] Healthcare Address [address] [place] [address] Care Team Providers Care Salesperson Hosiery Name Role Phone Brian Madera MD Unavailable [phone] Carmelita Olivera MD Primary Care Provide r Reason for Visit * Reason Comments Successful Phone Call 10/20/2023 (1 hours) [facility] Emergency Department Encounter Details Date Type Department Care Team (Late st Contact Info) Description 10/22/2023 [facility] Outreach [facility] Accountable Care Organization [address] [place] [address] Mikala Sheth, [address] [place] [address] Social History Tobacco Use Types Packs/Day Years [...] on file Legal Sex Female 8:45 PM PROGRAMMER OR ANALYST Gender Identity Female 04/25/2021 2:46 PM PROGRAMMER OR ANALYST Sexual Orientation Straight 04/25/2021 2: 46 PM PROGRAMMER OR ANALYST documented as of this encounter Progress Notes * Mikala Sheth MA - 10/22/2023 9:20 AM CDT Care Outdoor Emergency Care Technician contacted patient regarding recent ED visit at [facility] on 10/20/2023 (1 hour) for weakness nausea and vomiting, unspecified vomiting type. Status of Reason for ED Visit - Better Status Details: - Care coach builder spoke with patient's daughter, Toyin, who informed [...] for future needs. Thank you, Mikala Sheth [facility] ACO Care Outdoor Emergency Care Technician [facility] [phone] documented in this encounter Plan of Treatment Not on file documented as of this encounter Visit Diagnoses Not on filedocumented in this encounter Care Teams Salesperson Hosiery Relationship Specialty Start Date End Date Carmelita Olivera MD [address] [facility] [address] [place] [address] PCP - General Family Medicine 09/03/23 Brian Madera MD [address] [facility] [address] [place] [address] Consulting Physician Neurology 04/02/22 documented as of this encounter
--- OUTSIDE RECORDS SUMMARY | 2024-03-31 16:35 | XMS_ITS | Encounter Summary ---
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) 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) Carmelita Olivera MD [address] [place] [address] Phone: tel: fax: Brian Madera MD [address] [place] [address] [address] [place] [address] Phone: tel: fax: Referral ID Status Reason Start Date Expiration Date V isits Requested Visits Authorized [id number] Closed Specialty Services Required 01/20/2024 01/24/2024 1 1 Question Answer Please select the performing region: [facility] [[id number]] Please select the performing department: [facility] [[id number]] To provider: BRIAN MADERA [[id number]] # of visits: 4 Comments Needs Essence referral from PCP for appointment on 01/22 Encounter Details Date Type Department Care Team (Late st Contact Info) Description 01/20/2024 Orders Only [facility] Primary Care at [address] [place] [phone] Carmelita Olivera MD [address] [place] [address] [address] [place] [address] 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 No 12/17/2023 Social Connection and Isolat ion Panel [NHANES] Answer Date Recorded Frequency of Communication w ith Friends and Family Not on file 12/17/2023 How often do you get togethe r with friends or relatives? More than three times a week 12/17/2023 How often do you attend chur ch or restorationism services? Never 12/17/2023 Do you belong to any clubs o r organizations such as scientologist groups, unions, fraternal or athletic groups, or [...] No 12/17/2023 Housing Stability Vital Sign Answer Orger e Recorded In the last 12 months, was t here a time when you were not able to pay the mortgage or rent on time? No 12/17/2023 In the past 12 months, how m any times have you moved where you were living? 1 12/17/2023 At any time in the past 12 m [facility], were you homeless or living in a long term (including now)? No 12/17/2023 Personal Safety Answer Date Recorded Have you ever been in or are you currently in a harmful physical or emotional relationship or is someone making you feel afraid or unsafe? Denies 11/20/2023 Comments No Sex and Gender Information Value Date Recorded Sex Assigned at Not on file Legal Sex Female 8:45 PM HOMEOPATHIC DOCTOR Gender Identity Female 04/25/2021 2:46 PM HOMEOPATHIC DOCTOR Sexual Orientation Straight 04/25/2021 2: 46 PM HOMEOPATHIC DOCTOR documented as of this encounter Progress Notes [...] (HCC) documented in this encounter Care Teams Banding Machine Operator Relationship Specialty Start Date End Date Carmelita Olivera MD [address] [place] [address] PCP - General Family Medicine 09/03/23 Brian Madera MD [address] [place] [address] Consulting Physician Neurology 04/02/22 Yuliana Simmons, [address] [place] [address] Bag Shaker Radiology Rn 12/12/23 02/16/24 documented as of this encounter
--- OUTSIDE RECORDS SUMMARY | 2024-03-31 16:35 | XMS_ITS | Encounter Summary ---
Author Organization [facility] Healthcare Address [address] [place] [address] Care Team Providers Care Flight Follower Name Role Phone Brian Madera MD Unavailable [phone] Carmelita Olivera MD Primary Care Provide r Mikala Sheth MA Unavailable [phone] Reason for Visit * Reason Comments Successful Phone Call Encounter Details Date Type Department Care Team (Late st Contact Info) Description 11/21/2023 [facility] Outreach [facility] Accountable Care Organization [address] [place] [address] Lucy Patel MA [address] [place] [address] [address] [place] [address] Social History Tobacco Use Types Packs/Day Years [...] on file Legal Sex Female 8:45 PM BINDING PRINTER Gender Identity Female 04/25/2021 2:46 PM BINDING PRINTER Sexual Orientation Straight 04/25/2021 2: 46 PM BINDING PRINTER documented as of this encounter Progress Notes * Lucy Patel MA - 11/21/2023 3:41 PM CDT Care Visual Merchandising Manager contacted patient regarding recent ED visit at [facility] on 11/19 for Chest pain . Status [...] my contact information for future needs. JENNY Aarujo [facility] Care Visual Merchandising Manager [phone] documented in this encounter Plan of Treatment Not on file documented as of this encounter Visit Diagnoses Not on filedocumented in this encounter Care Teams Flight Follower Relationship Specialty Start Date End Date Carmelita Olivera MD [address] [facility] [address] [place] [address] PCP - General Family Medicine 09/03/23 Brian Madera MD [address] [facility] [address] [place] [address] Consulting Physician Neurology 04/02/22 Mikala Sheth MA [address] [place] [address] [address] [place] [address] ACO Care Visual Merchandising Manager 11/21/23 11/21/23 documented as of this encounter
--- OUTSIDE RECORDS SUMMARY | 2024-03-31 16:35 | XMS_ITS | Encounter Summary ---
Author Organization [facility] Healthcare Address [address] [place] [address] Care Team Providers Care Gamewell Operator Name Role Phone Brian Madera MD Unavailable [phone] Carmelita Olivera MD Primary Care Provide r Reason for Referral * Consultation (Routine) - Closed Specialty Diagnoses / Procedures Referred By Contac t Referred To Contact Plastic Surgery Diagnoses Neck mass Carmelita Olivera MD [address] [place] [address] [address] Phone: tel: fax: Calvin Duenas MD [address] [facility] [id number] [place] [address] Phone: tel: fax: Referral ID Status Reason Start Date Expiration Date V isits Requested Visits Authorized [id number] Closed Specialty Services Required 10/23/2023 11/21/2024 1 1 Question Answer Please select the performing region: [facility] (All Locations) [[id number]] To provider: CALVIN DUENAS [[id number]] # of visits: 1 Comments Julio Cesar ngozi Or other Provider Encounter Details Date Type Department Care Team (Late st Contact Info) Description 10/23/2023 Orders Only [facility] Primary Care at [place] 2 [facility] [address] [place] [address] Carmelita Olivera MD [address] [facility] [address] [place] [address] Neck mass (Primary Dx) Social History Tobacco [...] on file Legal Sex Female 8:45 PM STONE TRIMMER Gender Identity Female 04/25/2021 2:46 PM STONE TRIMMER Sexual Orientation Straight 04/25/2021 2: 46 PM STONE TRIMMER documented as of this encounter Plan of Treatment Scheduled Referrals Name Type Priority Associated Diagnoses Order Schedule Ambulatory referral to Plastic Surgery Outpatient Referral Routine Neck mass Expected: 10/23/2023 (Approximate), Expires: 10/22/2024 documented as of this encounter Visit Diagnoses Diagnosis Neck mass- Primary Swelling, mass, or lump in head and neck documented in this encounter Care Teams Gamewell Operator Relationship Specialty Start Date End Date Carmelita Olivera MD [address] [facility] [address] [place] [address] PCP - General Family Medicine 09/03/23 Brian Madera MD [address] [facility] [place] [place] [address] Consulting Physician Neurology 04/02/22 documented as of this encounter
--- OUTSIDE RECORDS SUMMARY | 2024-03-31 16:35 | XMS_ITS | Encounter Summary ---
Author Organization [facility] Healthcare Address [address] [place] [address] Care Team Providers Care Political Aide Name Role Phone Brian Madera MD Unavailable [phone] Carmelita Olivera MD Primary Care Provide r Reason for Visit * Reason Comments Chest Pain ED f/u: Pt states he r chest pain has resolved since ED visit. Encounter Details Date Type Department Care Team (Late st Contact Info) Description 11/25/2023 3:30 PM CDT Office Visit [facility] Primary Care at [address] [address] Carmelita Olivera MD [address] [place] [address] Other chest pain (Primary Dx) Social [...] file Legal Sex Female 8:45 PM FAMILY PHYSICIAN Gender Identity Female 04/25/2021 2:46 PM FAMILY PHYSICIAN Sexual Orientation Straight 04/25/2021 2: 46 PM FAMILY PHYSICIAN documented as of this encounter Last Filed [...] - 11/25/2023 3:30 PM CDT My medical laboratory specialist and I are thankful you have trusted [...] documented as of this encounter Care Teams Political Aide Relationship Specialty Start Date End Date Carmelita Olivera MD [address] [facility] [address] [place] [address] PCP - General Family Medicine 09/03/23 Brian Madera MD [address] [facility] [address] [place] [address] Consulting Physician Neurology 04/02/22 documented as of this encounter
--- OUTSIDE RECORDS SUMMARY | 2024-03-31 16:35 | XMS_ITS | Encounter Summary ---
Author Organization [facility] Healthcare Address [address] [place] [address] Care Team Providers Care Public Services Assistant Name Role Phone Brian Madera MD Unavailable [phone] Carmelita Olivera MD Primary Care Provide r Encounter Details Date Type Department Care Team (Late st Contact Info) Description 03/30/2024 Telephone [facility] Primary Care at [address] [place] [phone] Carmelita Olivera MD [address] [place] [address] [address] [place] [address] Social History Tobacco Use Types Packs/Day Years Used Date Smoking Tobacco: Never Smokeless Tobacco: Never Alcohol Use Standard Drinks/Week Comments No 0 (1 standard drink = 0.6 oz pur e alcohol) [facility] Utilities Answer Date Recorded In the past 12 months has [employer], gas, oil, or water [employer] threatened to shut off services in your home? No 12/17/2023 Social Connection and Isolat ion Panel [NHANES] Answer Date Recorded Frequency of Communication w ith Friends and Family Not on file 12/17/2023 How often do you get togethe r with friends or relatives? More than three times a week 12/17/2023 How often do you attend chur or moravian services? Never 12/17/2023 Do you belong to any clubs o r organizations such as jew groups, unions, fraternal or athletic groups, or [...] any time in the past 12 m [facility], were you homeless or living in a fci (including now)? No 12/17/2023 Personal Safety Answer Date Recorded Have you ever been in or are you currently in a harmful physical or emotional relationship or is someone making you feel afraid or unsafe? Denies 11/20/2023 Comments No Sex and Gender Information Value Date Recorded Sex Assigned at Not on file Legal Sex Female 8:45 PM AD SETTER Gender Identity Female 04/25/2021 2:46 PM AD SETTER Sexual Orientation Straight 04/25/2021 2: 46 PM AD SETTER documented as of this encounter Miscellaneous Notes * Telephone Encounter - Delphine Key MA - 03/30/2024 8:52 AM CST Spoke with daughter Toyin, per HIPAA and switched appt to CD 03/02 at 11AM. SETTER * Telephone Encounter - Faina Pompa MA [...] week that she could bring her in? SETTER documented in this encounter Plan of Treatment Not on file documented as of this encounter Visit Diagnoses Not on filedocumented in this encounter Care Teams Public Services Assistant Relationship Specialty Start Date End Date Carmelita Olivera MD 2 [facility] [address] [place] [address] PCP - General Family Medicine 09/03/23 Brian Madera MD 4 [facility] [address] [place] [address] Consulting Physician Neurology 04/02/22 documented as of this encounter
--- OUTSIDE RECORDS SUMMARY | 2024-03-31 16:35 | XMS_ITS | Encounter Summary ---
Author Organization [facility] Healthcare Address [address] [place] [address] Care Team Providers Care Crutcher Helper Name Role Phone Brian Madera MD Unavailable [phone] Carmelita Olivera MD Primary Care Provide r Reason for Referral * Consultation (Routine) - Closed Specialty Diagnoses / Procedures Referred By Contac t Referred To Contact Ophthalmology Diagnoses Diabetic eye exam (CMS/HCC) (HCC) Carmelita Olivera MD [address] [place] [address] [address] [place] [address] Phone: tel: fax: External Order Referral ID Status Reason Start Date Expiration Date V isits Requested Visits Authorized [id number] Closed Specialty Services Required 09/05/2023 10/04/2024 1 1 Question Answer Please select the performing region: External Order [[id number]] # of visits: 1 Comments [facility] location (P) [phone] (F) [phone]. Encounter Details Date Type Department Care Team (Late st Contact Info) Description 09/05/2023 Orders Only [facility] Primary Care at [address] [place] [phone] Carmelita Olivera MD [address] [place] [address] [address] [place] [address] Diabetic eye exam ([facility]) ([facility]) (Primary Dx) Social History Tobacco Use [...] on file Legal Sex Female 8:45 PM PURCHASING AGENT Gender Identity Female 04/25/2021 2:46 PM PURCHASING AGENT Sexual Orientation Straight 04/25/2021 2: 46 PM PURCHASING AGENT documented as of this encounter Plan of Treatment Scheduled Referrals Name Type Priority Associated Diagnoses Order Schedule Ambulatory referral to Ophthalmology Outpatient Referral Routine Diabetic eye exam ([facility]) ([facility]) Expected: 09/05/2023 (Approximate), Expires: 09/04/2024 documented as of this encounter Visit Diagnoses Diagnosis Diabetic eye exam ([facility]) ([facility])- Primary Examination of eyes and vision documented in this encounter Care Teams Crutcher Helper Relationship Specialty Start Date End Date Carmelita Olivera MD [address] [facility] [address] [place] [address] PCP - General Family Medicine 09/03/23 Brian Madera MD [address] [facility] [address] [place] [address] Consulting Physician Neurology 04/02/22 documented as of this encounter
--- OUTSIDE RECORDS SUMMARY | 2024-03-31 16:35 | XMS_ITS | Encounter Summary ---
Author Organization [facility] Healthcare Address [address] [place] [address] Care Team Providers Care Cyber Incident Responder Name Role Phone Brian Madera MD Unavailable [phone] Carmelita Olivera MD Primary Care Provide r Reason for Visit * Reason Comments Successful Phone Call Encounter Details Date Type Department Care Team (Late st Contact Info) Description 03/26/2024 [place] ED Outreach [facility] Accountable Care Organization [address] [place] [address] Renetta Mcginnis MA [address] [place] [address] [address] [place] [address] Social History Tobacco Use Types Packs/Day Years Used Date Smoking Tobacco: Never Smokeless Tobacco: Never Alcohol Use Standard Drinks/Week Comments No 0 (1 standard drink = 0.6 oz pur e alcohol) [facility] Utilities Answer Date Recorded In [...] How often do you attend chur or yarsanism services? Never 12/17/2023 Do you belong to any clubs o r organizations such as oriental orthodox groups, unions, fraternal or athletic groups, [...] any time in the past 12 m [facility], were you homeless or living in a custodial (including now)? No 12/17/2023 Personal Safety Answer Date Recorded Have you ever been in or are you currently in a harmful physical or emotional relationship or is someone making you feel afraid or unsafe? Denies 11/20/2023 Comments No Sex and Gender Information Value Date Recorded Sex Assigned at Not on file Legal Sex Female 8:45 PM SAFE AND VAULT SERVICE MECHANIC Gender Identity Female 04/25/2021 2:46 PM SAFE AND VAULT SERVICE MECHANIC Sexual Orientation Straight 04/25/2021 2: 46 PM SAFE AND VAULT SERVICE MECHANIC documented as of this encounter Progress Notes * Renetta Mcginnis MA - 03/26/2024 2:26 PM CST Care Hospital Intern contacted patient regarding recent ED visit at [facility]- 03/25 - Dementia, Visual hallucinations. Status of [...] Provided my contact information for future needs. AND VAULT SERVICE MECHANIC documented in this encounter Plan of Treatment Not on file documented as of this encounter Visit Diagnoses Not on filedocumented in this encounter Care Teams Cyber Incident Responder Relationship Specialty Start Date End Date Carmelita Olivera MD [address] [facility] [address] [place] [address] PCP - General Family Medicine 09/03/23 Brian Madera MD [address] [facility] [address] [place] [address] Consulting Physician Neurology 04/02/22 documented as of this encounter
--- OUTSIDE RECORDS SUMMARY | 2024-03-31 16:35 | XMS_ITS | Encounter Summary ---
Author Organization [facility] Healthcare Address [address] [place] [address] Care Team Providers Care Youth Worker Name Role Phone Brian Madera MD Unavailable [phone] Carmelita Olivera MD Primary Care Provide r Reason for Visit * Reason Onset Date Comments Insurance 10/22/2023 Encounter Details Date Type Department Care Team (Late st Contact Info) Description 10/22/2023 Telephone [facility] Primary Care at [address] [place] [phone] Carmelita Olivera MD [address] [place] [address] [address] [place] [address] Insurance Social History Tobacco Use [...] on file Legal Sex Female 8:45 PM SURVEY ANALYST Gender Identity Female 04/25/2021 2:46 PM SURVEY ANALYST Sexual Orientation Straight 04/25/2021 2: 46 PM SURVEY ANALYST documented as of this encounter Miscellaneous [...] on filedocumented in this encounter Care Teams Youth Worker Relationship Specialty Start Date End Date Carmelita Olivera MD [address] [facility] [address] [place] [address] PCP - General Family Medicine 09/03/23 Brian Madera MD [address] [facility] [address] [place] [address] Consulting Physician Neurology 04/02/22 documented as of this encounter
--- OUTSIDE RECORDS SUMMARY | 2024-03-31 16:35 | XMS_ITS | Encounter Summary ---
Author Organization [facility] Healthcare Address [address] [place] [address] Care Team Providers Care Product Safety Compliance Leader Name Role Phone Brian Madera MD Unavailable [phone] Carmelita Olivera MD Primary Care Provide r Encounter Details Date Type Department Care Team (Late st Contact Info) Description 09/03/2023 Telephone [facility] Primary Care at [address] [phone] Carmelita Olivera MD [address] [place] [address] Social History Tobacco Use Types Packs/Day [...] file Legal Sex Female 8:45 PM DIRECTOR MARKETING ANALYTICS Gender Identity Female 04/25/2021 2:46 PM DIRECTOR MARKETING ANALYTICS Sexual Orientation Straight 04/25/2021 2: 46 PM DIRECTOR MARKETING ANALYTICS documented as of this encounter Miscellaneous Notes [...] on filedocumented in this encounter Care Teams Product Safety Compliance Leader Relationship Specialty Start Date End Date Carmelita Olivera MD 2 [facility] [address] [place] [address] PCP - General Family Medicine 09/03/23 Brian Madera MD [address] [facility] [address] [place] [address] Consulting Physician Neurology 04/02/22 documented as of this encounter
--- OUTSIDE RECORDS SUMMARY | 2024-03-31 16:35 | XMS_ITS | Encounter Summary ---
Author Organization [facility] Healthcare Address [address] [place] [address] Care Team Providers Care Director Independent Name Role Phone Brian Madera MD Unavailable [phone] Carmelita Olivera MD Primary Care Provide r Mikala Sheth MA Unavailable [phone] Reason for Visit * Reason Onset Date Comments Care Die Sinking Machine Operator [facility] 11/21/2023 Encounter Details Date Type Department Care Team (Late st Contact Info) Description 11/21/[address] [facility] Primary Care at [address] [phone] Carmelita Olivera MD [address] [place] [address] Care Die Sinking Machine Operator [facility] Social History Tobacco Use Types [...] file Legal Sex Female 8:45 PM HAIR AND MAKEUP DESIGNER Gender Identity Female 04/25/2021 2:46 PM HAIR AND MAKEUP DESIGNER Sexual Orientation Straight 04/25/2021 2: 46 PM HAIR AND MAKEUP DESIGNER documented as of this encounter Miscellaneous Notes [...] visit? Thank you! JENNY Araujo O Care Die Sinking Machine Operator [phone] documented in this encounter Plan of Treatment Not on file documented as of this encounter Visit Diagnoses Not on filedocumented in this encounter Care Teams Director Independent Relationship Specialty Start Date End Date Carmelita Olivera MD 2 [facility] [address] [place] [address] PCP - General Family Medicine 09/03/23 Brian Madera MD 4 [facility] [address] [place] [address] Consulting Physician Neurology 04/02/22 Mikala Sheth MA [address] [facility] [address] [place] [address] ACO Care Die Sinking Machine Operator 11/21/23 11/21/23 documented as of this encounter
--- OUTSIDE RECORDS SUMMARY | 2024-03-31 16:35 | XMS_ITS | Clinical Summary ---
Author Organization [facility] Medical Office Building B Address [address] [place] [address] Care Team Providers Care Buyer Agent Name Role Phone Brian Madera MD Unavailable [phone] Carmelita Olivera MD Primary Care Provide r Allergies Active Allergy Reactions Criticality Noted Date Comments Quetiapine Hallucinations Medium 05/20/2023 Medications lancets 31 gauge miscIndication s:Type 2 diabetes mellitus with hyperglycemia, without long-term current use of insulin ([facility]) 1 Device daily 100 each 3 10/04/19 21 Active blood-glucose meter kitIndications :Type 2 diabetes mellitus with hyperglycemia, without long-term current use of insulin ([facility]) 1 Device daily 1 each 10/19/19 21 Active blood glucose diagnostic stripIndicatio ns:Type 2 diabetes mellitus with hyperglycemia, without long-term current use of insulin ([facility]) Use one strip to monitor [...] Seroquel. Assessment & Plan (04/25/2023 2:42 PM CLAY STAIN MIXER): New start on Seroquel, take as directed. Re-evaluate need of continued use of medication at next appointment. Nail fungus 03/05/2023 Assessment & Plan (03/05/2023 1:36 PM CLAY STAIN MIXER): Referred back to podiatry for further treatments. 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 Assessment & Plan (06/24/2023 10:21 PM CDT): Worsening, encouraged patient to follow up with neurology. Continue Namenda. Assessment & Plan (03/05/2023 1:36 PM CLAY STAIN MIXER): Stable, currently on memantine. Doing well. Assessment & Plan (09/21/2022 7:35 PM CDT): Stable. Cont. Current prescription medications, memantine. Assessment & Plan (04/02/2022 4:24 PM CLAY STAIN MIXER): Stable. Cont. Current prescription medications. Assessment & Plan (09/05/2021 1:48 PM CDT): Worsening, does not want to discontinue Exelon patch at this time. Will consult with psychiatry for further eval/mgmt. Assessment & Plan (03/31/2021 6:26 PM CLAY STAIN MIXER): Will start Exelon patches. Decreased hearing of [...] months Assessment & Plan (03/05/2023 1:35 PM CLAY STAIN MIXER): A1c at goal of less than 8.0, continue current prescription medications, atorvastatin, lisinopril, metformin xr. Assessment & Plan (09/21/2022 7:35 PM CDT): A1c at goal of less than 8.0, continue current prescription medications, atorvastatin, lisinopril, metformin xr. Assessment & Plan (04/02/2022 4:24 PM CLAY STAIN MIXER): A1c at goal of less than 8.0, [...] 09/03/2018 Assessment & Plan (03/26/2020 8:15 PM CLAY STAIN MIXER): Weight reduction, daily exercise and dietary modifications recommended. Assessment & Plan (12/04/2019 9:33 AM CDT): Weight reduction, daily exercise and dietary modifications recommended. Assessment & Plan (03/18/2019 12:18 PM CLAY STAIN MIXER): Unchanged. Encouraged patient to decrease weight, increase [...] months Assessment & Plan (03/05/2023 1:31 PM CLAY STAIN MIXER): Blood pressure at goal less than 140/90, continue current prescription medications, amlodipine, lisinopril. Assessment & Plan (09/21/2022 7:35 PM CDT): Blood pressure at goal less than 140/90, continue current prescription medications, lisinopril. Assessment & Plan (04/02/2022 4:24 PM CLAY STAIN MIXER): Blood pressure is at goal of less [...] meds. Assessment & Plan (03/26/2020 8:15 PM CLAY STAIN MIXER): Within normal range, low sodium diet recommended. Cont current meds. Assessment & Plan (12/04/2019 9:33 AM CDT): Stable. Cont. Current meds. Assessment & Plan (07/26/2019 8:22 PM CDT): Clinically improved, continue current meds. Assessment & Plan (03/18/2019 12:17 PM CLAY STAIN MIXER): Waxing and waning, cont current meds. Assessment [...] appointment. Assessment & Plan (03/14/2018 12:51 PM CLAY STAIN MIXER): Hypertension is improving with treatment. Continue current [...] appointment. Assessment & Plan (06/07/2017 1:13 PM CLAY STAIN MIXER): Hypertension is unchanged. Continue current treatment regimen. Dietary sodium restriction. Regular aerobic exercise. Continue current medications. Blood pressure will be reassessed at the next regular appointment. Hyperlipidemia associated with type 2 diabetes otoniel spencer 06/07/2017 Assessment & Plan (09/02/2023 12:26 PM CDT): LDL goal of less than 100, continue current prescription medications, atorvastatin. Assessment & Plan (03/05/2023 1:36 PM CLAY STAIN MIXER): LDL at goal of less than 100, continue current prescription medications, atorvastatin. Assessment & Plan (09/21/2022 7:34 PM CDT): LDL at goal of less than 100, continue current prescription medications, atorvastatin. Assessment & Plan (04/02/2022 4:24 PM CLAY STAIN MIXER): LDL at goal of less than 100, continue current prescription medications. Assessment & Plan (10/08/2021 6:46 PM CDT): LDL at goal of < 100. Cont current meds. Assessment & Plan (03/31/2021 6:27 PM CLAY STAIN MIXER): LDL at goal. Cont current Rx meds. Assessment & Plan (10/14/2020 6:22 PM CDT): LDL at goal of < 70, cont current mgmt. Assessment & Plan (09/28/2020 7:07 AM CDT): Clinically improved, continue current meds. Assessment & Plan (03/26/2020 8:15 PM CLAY STAIN MIXER): Good control. Low chol diet recommended. Assessment & Plan (12/04/2019 9:33 AM CDT): Stable. Cont. Current meds. Assessment & Plan (07/26/2019 8:22 PM CDT): Stable. Cont. Current meds. Assessment & Plan (03/18/2019 12:17 PM CLAY STAIN MIXER): Clinically improved, continue current meds. Assessment & [...] qhs Assessment & Plan (03/14/2018 12:52 PM CLAY STAIN MIXER): Lipid abnormalities are improving with treatment. Nutritional counseling was provided. and Pharmacotherapy as ordered. Lipids will be reassessed 4 months. Atorvastatin 20mg po qd Assessment & Plan (12/06/2017 1:00 PM CDT): Lipid abnormalities are improving with treatment. Nutritional counseling was provided. and Pharmacotherapy as ordered. lipitor 20mg qd Lipids will be reassessed in 6 months. Assessment & Plan (06/07/2017 1:13 PM CLAY STAIN MIXER): Lipid abnormalities are unchanged. Nutritional counseling was provided. and Pharmacotherapy as ordered. Lipids will be reassessed in 6 months. Generalized anxiety disorder 06/07/2017 Assessment & Plan (07/31/2023 3:45 PM CDT): Clinically improved, continue current prescription medications, lorazepam. Assessment & Plan (06/24/2023 10:22 PM CDT): Agree to increase lorazepam to 0.5 mg qam and 1 mg qpm. Assessment & Plan (04/25/2023 2:41 PM CLAY STAIN MIXER): Will add Seroquel to daily regiment. Continue lorazepam as needed. Assessment & Plan (03/05/2023 1:33 PM CLAY STAIN MIXER): Clinically improved, continue current prescription medications, lorazepam. Assessment & Plan (09/21/2022 7:34 PM CDT): Clinically improved, continue current prescription medications, lorazepam. Assessment & Plan (04/02/2022 4:23 PM CLAY STAIN MIXER): Clinically improved, continue current prescription medications. Assessment & Plan (10/08/2021 6:46 PM CDT): Clinically improved, continue current prescription medications. Assessment & Plan (03/31/2021 6:26 PM CLAY STAIN MIXER): Stable. Cont. Current prescription medications. Assessment & Plan (01/09/2021 3:31 PM CDT): Anxiety has been controlled. Will continue on lorazepam p.r.n. Assessment & Plan (09/28/2020 7:07 AM CDT): Stable. Cont. Current meds. Assessment & Plan (03/26/2020 8:15 PM CLAY STAIN MIXER): Clinically improved, continue current meds. Assessment & Plan (12/04/2019 9:33 AM CDT): Clinically improved, continue current meds. Assessment & Plan (07/26/2019 8:22 PM CDT): Clinically improved, continue current meds. Assessment & Plan (03/18/2019 12:17 PM CLAY STAIN MIXER): Clinically improved, continue current meds. Assessment & Plan (09/03/2018 5:29 PM CDT): Psychological condition is improving with treatment. Continue current treatment regimen. Regular aerobic exercise. Psychological condition will be reassessed at the next regular appointment. Lorazepam 0.5 mg q6h prn Assessment & Plan (08/06/2018 6:37 PM CDT): Stable. Cont. Current meds. Assessment & Plan (03/14/2018 12:52 PM CLAY STAIN MIXER): Stable. Cont. Current meds. Lorazepam 0.5 mg q6 h prn Assessment & Plan (12/06/2017 1:00 PM CDT): At baseline, continue lorazepam 0.5 mg q6h prn Assessment & Plan (06/07/2017 1:13 PM CLAY STAIN MIXER): Stable. Refill given. Resolved Problems Problem Noted Date Diagnosed Date Resolved Date Pure hypercholesterolemia 03/30/2021 Elevated glucose 09/28/2020 10/13/2020 Encounters Date Type Department Care Team Description 03/30/2024 Telephone [facility] Primary Care at [address] [address] Carmelita Olivera MD 03/27/2024 6:30 PM CLAY STAIN MIXER Office Visit [facility] at [address] [place] [address] Jacquelin Quinteros NP Constipation, unspecified constipation type (Primary Dx) 03/26/2024 Telephone [facility] Primary Care at [address] [place] [phone] Carmelita Olivera MD Hospital Follow Up 03/26/2024 [facility] Accountable Care Organization [address] [place] [address] Renetta Mcginnis MA 01/30/2024 Telephone [facility] Primary Care at [address] [phone] Carmelita Olivera MD Rollator 01/30/2024 Telephone [facility] Primary Care at [address] [place] [phone] Carmelita Olivera MD Persons with Disabilities Certification for Parking Placard 01/23/2024 1:30 PM CDT Office Visit [facility] [address] [facility] [address] [place] [address] Kate Diaz NP 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); 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) 01/20/2024 Orders Only [facility] Care at [address] [phone] Carmelita Olivera MD 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 Never 12/17/2023 Do you belong to any clubs o r organizations such as pentecostal groups, unions, fraternal or athletic groups, or [...] any time in the past 12 m [facility], were you homeless or living in a [...] on file Legal Sex Female 8:45 PM CLAY STAIN MIXER Gender Identity Female 04/25/2021 2:46 PM CLAY STAIN MIXER Sexual Orientation Straight 04/25/2021 2: 46 PM CLAY STAIN MIXER Obstetrics History Last Filed Vital Signs Vital Sign Reading Time Taken Comments Blood Pressure 134/78 03/27/2024 6:33 PM CLAY STAIN MIXER Pulse 67 03/27/2024 6:33 PM CLAY STAIN MIXER Temperature 36.6 ??C (97.8 ??F) 03/27/2024 6:33 PM CS T Respiratory Rate 15 03/27/2024 6:33 PM CLAY STAIN MIXER Oxygen Saturation 99% 03/27/2024 6:33 PM CLAY STAIN MIXER Inhaled Oxygen Concentration - - Weight 58.1 kg (128 lb) 03/27/2024 6:33 PM CLAY STAIN MIXER Height 147.3 cm (4' 10 ) 03/27/2024 6:33 PM CLAY STAIN MIXER Body Mass Index 26.75 03/27/2024 6:33 PM CLAY STAIN MIXER Plan of Treatment Health Maintenance Due Date [...] Procedure Name Priority Date/Time Associated Diagnosis Comments MT INCISION & DRAINAGE ABSCESS SIMPLE/SINGLE Routine 01/02/2024 7:30 PM CDT Abscess of skin of neck EGFR STAT 11/20/2023 1:47 PM CDT HEMOGLOBIN A1C Routine 09/03/2023 9:42 AM CDT Type 2 diabetes mellitus with hyperglycemia, without long-term current use of insulin (CMS/HCC) (HCC) DIABETES EYE EXAM Routine 05/21/2023 LIPID PANEL Routine 03/18/2023 1:58 PM CLAY STAIN MIXER Type 2 diabetes mellitus with hyperglycemia, without long-term current use of insulin (CMS/HCC) (HCC) Hypertension associated with diabetes (HCC) ALBUMIN CREATININE RATIO, URINE Routine 03/18/2023 1:58 PM CLAY STAIN MIXER Type 2 diabetes mellitus with hyperglycemia, without long-term current use of insulin (CMS/HCC) (HCC) DIABETES FOOT EXAM Routine 03/05/2023 from Last 3 Months or Most Recently Relevant to Health Maintenance Results * MT INCISION & DRAINAGE ABSCESS SIMPLE/SINGLE (01/02/2024 7:30 [...] with no immediate complications us Kristen Vilchis SHELL MAKER LOCKSTITCH IN CLINIC/BEDSIDE ORD ERABLES Final Result * [...] MD LAB BLOOD ORDERABLES Final Res ult [facility] (ABERDEEN) 1 [facility] Department [place] [address] * (ABNORMAL) Hemoglobin A1c (09/03/2023 [...] children were not included. ?? (Diabetes Care 31:9988-3201, 2007). ??The eAG is not equivalent to a fasting glucose. Blood 09/03/2023 9:42 AM CDT 09/03/2023 10:23 AM CDT Carmelita Olivera MD LAB BLOOD ORDERABLES Final Result JOSE MARCELINO ([place]) 1 [facility] Department [place] [address] * DIABETES EYE EXAM (05/21/2023) SCRIBED DIABETIC DILATED EYE EXAM Normal Historical Provider HEALTH MAINTENANCE Final Result * Albumin Creatinine Ratio, Urine (03/18/2023 1:58 PM CLAY STAIN MIXER) Albumin Ur 47.4 mg/L [facility] ([place]) Comment: Interpretive Data No reference range established. Current interpretive data was last revised 2018. Testing performed by: [address] [address] Creatinine Ur 383.9 mg/dL JOSE MARCELINO ([place]) Comment: Interpretive Data No reference range established. Current interpretive data was last revised 2018. Testing performed by: [address] [address] Albumin Creatinine Ratio, Ur 12 1 - 29 mg/g JOSE MARCELINO ([place]) Comment:Testing performed by : [address] [address] Urine 03/18/2023 1:58 PM CLAY STAIN MIXER 03/19/2023 9:36 AM CLAY STAIN MIXER us Jocelynn Cintron Coy DO LAB URINE ORDERABLES Final Result JOSE MARCELINO ([place]) 1 [facility] Department [place] [address] * Lipid panel (03/18/2023 1:58 PM CLAY STAIN MIXER) Cholesterol 167 30 - 199 mg/dL JOSE [...] on 2017. Chol/HDL ratio 2 YUKI MARCELINO (ABERDEEN) Blood 03/18/2023 1:58 PM CLAY STAIN MIXER 03/18/2023 3:53 PM CLAY STAIN MIXER us Jocelynn Coy DO LAB BLOOD ORDERABLES Final Result JOSE CHARI (ABERDEEN) 1 [facility] Department [place] [address] * DIABETES FOOT EXAM (03/05/2023) SCRIBED DIABETIC FOOT EXAM Normal us Historical Provider MD HEALTH MAINTENANCE Final Result from Last 3 Months or Most Recently Relevant to Health Maintenance Insurance [facility] Member Subscriber Plan / Payer ( fective 2017-Present) Name:Annita Bose Relation to Subscriber:Self Name:Annita Bose Payer ID:[id number] (NAIC) Type:MEDICARE RISK OTHER Address: [place] [id number] Care Teams Buyer Agent Relationship Specialty Start Date End Date Carmelita Olivera MD [address] [place] [address] PCP - General Family Medicine 09/03/23 Brian Madera MD [address] [place] [address] Consulting Physician Neurology 04/02/22
--- OUTSIDE RECORDS SUMMARY | 2024-03-31 16:35 | XMS_ITS | Encounter Summary ---
Author Organization [facility] Healthcare Address [address] [place] [address] Care Team Providers Care Diesel Engine Ii Pipe Fitter Name Role Phone Brian Madera MD Unavailable [phone] Carmelita Olivera MD Primary Care Provide r Yuliana Simmons [facility] Unavailable [phone] Reason for Referral * Procedure (Routine) - Pending Review Specialty Diagnoses / Procedures Referred By Jamaal t Referred To Contact Diagnoses Abscess of skin of neck Procedures Incision and Drainage Kristen Vilchis NP [address] [place] [address] Phone: tel: fax: [facility] Medical Group Referral ID Status Reason Start Date Expiration Date V isits Requested Visits Authorized [id number] Pending Review 01/02/2024 01/31/2025 1 1 Reason for Visit * Reason Comments Abscess Knot on the left jose e of her neck that has been there for about 2 years. Its starting to hurt and itch. Encounter Details Date Type Department Care Team (Late st Contact Info) Description 01/02/2024 7:30 PM CDT Office Visit [facility] Medical [facility] at [address] [place] [phone] Kristen Vilchis, [place] [address] [place] [address] Abscess of skin of neck (Primary Dx) Social History Tobacco Use Types Packs/Day Years Used Date Smoking Tobacco: Never Smokeless Tobacco: Never Alcohol Use Standard Drinks/Week Comments No 0 (1 standard drink = 0.6 oz pur e alcohol) [facility] Utilities Answer Date Recorded In the past [...] often do you attend chur ch or judaism services? Never 12/17/2023 Do you belong to any clubs o r organizations such as jain groups, unions, fraternal or athletic groups, or [...] any time in the past [address] [facility], were you homeless or living in a [...] on file Legal Sex Female 8:45 PM SCHOOL PSYCHOLOGIST Gender Identity Female 04/25/2021 2:46 PM SCHOOL PSYCHOLOGIST Sexual Orientation Straight 04/25/2021 2: 46 PM SCHOOL PSYCHOLOGIST documented as of this encounter Last Filed [...] meet your needs. Thank you for choosing [facility]! It was my pleasure to see you [...] Procedure Name Priority Date/Time Associated Diagnosis Comments DE INCISION & DRAINAGE ABSCESS SIMPLE/SINGLE Routine 01/02/2024 7:30 PM CDT Abscess of skin of neck documented in this encounter Results * DE INCISION & DRAINAGE ABSCESS SIMPLE/SINGLE (01/02/2024 7:30 [...] with no immediate complications us Kristen Vilchis FOOD SAFETY COORDINATOR IN CLINIC/BEDSIDE ORD ERABLES Final Result documented [...] ss documented in this encounter Care Teams Diesel Engine Ii Pipe Fitter Relationship Specialty Start Date End Date Carmelita Olivera MD [address] [place] [address] PCP - General Family Medicine 09/03/23 Brian Madera MD [address] [place] [address] Consulting Physician Neurology 04/02/22 Yuliana Simmons, [address] [place] [address] Honey Processor Mobile Home Lot Utility Worker 12/12/23 02/16/24 documented as of this encounter
--- OUTSIDE RECORDS SUMMARY | 2024-03-31 16:35 | XMS_ITS | Encounter Summary ---
Author Organization 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) 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) Carmelita Olivera MD [address] [place] [address] [address] [place] [address] Phone: tel: fax: Brian Madera MD [address] [place] [address] [address] [place] [address] Phone: tel: fax: Referral ID Status Reason Start Date Expiration Date V isits Requested Visits Authorized [id number] Closed Specialty Services Required 01/20/2024 01/24/2024 1 1 Encounter Details Date Type Department Care Team (Late Contact Info) Description 01/23/2024 1:30 PM CDT [facility] [address] [facility] [address] [place] [phone] Kate Diaz NP [address] [place] [address] 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 Never 12/17/2023 Do you belong to any clubs o r organizations such as druze groups, unions, fraternal or athletic groups, or [...] any time in the past 12 m [facility], were you homeless or living in a [...] on file Legal Sex Female 8:45 PM EXHIBITS COORDINATOR Gender Identity Female 04/25/2021 2:46 PM EXHIBITS COORDINATOR Sexual Orientation Straight 04/25/2021 2: 46 PM EXHIBITS COORDINATOR documented as of this encounter Last [...] and new hallucination. 1. Memory loss: 03/18/2023 [place] cognitive assessment today showed [place] cognitive assessment [...] language -2, delayed recall -5) 4. 08/10/2022- [place] cognitive assessment today showed [place] cognitive assessment [...] 01/23/2024 documented in this encounter Care Teams New Order Clerk Relationship Specialty Start Date End Date Carmelita Olivera MD [address] [place] [address] [place] [address] PCP - General Family Medicine 09/03/23 Brian Madera MD [address] [place] [address] Consulting Physician Neurology 04/02/22 Yuliana Simmons, [address] [place] [address] Electrical Sign Wirer Helper Obgyn Hospitalist Physician 12/12/23 02/16/24 documented as of this encounter
--- OUTSIDE RECORDS SUMMARY | 2024-03-31 16:36 | XMS_ITS | Encounter Summary ---
Author Organization [facility] Healthcare Address [address] [place] [address] Care Team Providers Care Director Intelligence Analysis Programs Name Role Phone Jocelynn Coy DO Primary Care Provider [phone] Brian Madera MD Unavailable [phone] Reason for Visit * Reason Comments Alzheimer's Disease Hallucinations Encounter Details Date Type Department Care Team (Late st Contact Info) Description 07/17/2023 10:00 AM CDT Office Visit [facility] Medical Group Primary Care at [address] [place] [address] Jocelynn Coy DO [address] [facility] [place] [address] Generalized anxiety disorder (Primary Dx); [...] on file Legal Sex Female 8:45 PM LABOR ECONOMIST Gender Identity Female 04/25/2021 2:46 PM LABOR ECONOMIST Sexual Orientation Straight 04/25/2021 2: 46 PM LABOR ECONOMIST documented as of this encounter Last Filed [...] Thanks for coming in today! My medical assisting program director and I are thankful you have trusted us with your care, and hope that you received EXCELLENT care today! Although some conditions may not allow immediate improvement, I aim to always make you feel a little better leaving, than when you came in. [place] not hesitate to call, if you have any questions or concerns, at [phone]. You may receive a phone call, text, MYCHART message, or e-mail asking you to take a survey about your care today. We would love to hear your feedback on how EXCELLENT your care was today! Wishing you better health, always! Dr. Jocelynn Coy * Attachments The following attachments cannot be sent through Care Everywhere. * Generalized Anxiety Disorder (Customer Sales Representative) (Salvadorean) documented in this encounter Progress Notes * [...] This note is dictated and transcribed by [employer] Direct [employer]. Alcohol And Drug Counselor variances may occur. Despite proofreading, typographical errors [...] documented as of this encounter Care Teams Director Intelligence Analysis Programs Relationship Specialty Start Date End Date Zbigniew Jocelynnjaylan Cintron DO PCP - General Family Medicine 06/10/17 09/02/23 Brian Madera MD [address] [place] [address] [address] [place] [address] Consulting Physician Neurology 04/02/22 documented as of this encounter
--- OUTSIDE RECORDS SUMMARY | 2024-03-31 16:36 | XMS_ITS | Encounter Summary ---
Author Organization [facility] Healthcare Address [address] [place] [address] Care Team Providers Care Senior Restaurant Manager Name Role Phone Brian Madera MD Unavailable [phone] Carmelita Olivera MD Primary Care Provide r Encounter Details Date Type Department Care Team (Late st Contact Info) Description 09/03/2023 Orders Only [facility] Medical Group Primary Care at [address] [place] [address] Carmelita Olivera MD [address] [place] [address] [address] [place] [address] Need for hepatitis B screening [...] file Legal Sex Female 8:45 PM MOLD CLOSER Gender Identity Female 04/25/2021 2:46 PM MOLD CLOSER Sexual Orientation Straight 04/25/2021 2: 46 PM MOLD CLOSER documented as of this encounter Plan of Treatment Scheduled Orders Name Type Priority Associated Diagnoses Orde r Schedule CBC with auto differential Lab Routine Healthcare maintenance Type 2 diabetes mellitus with hyperglycemia, without long-term current use of insulin ([facility] ([facility]) Expected: 09/03/2023, Expires: 09/02/2024 Comprehensive metabolic panel Lab Routine Healthcare maintenance Type 2 diabetes mellitus with hyperglycemia, without long-term current use of insulin ([facility]) (HCC) Expected: 09/03/2023 (Approximate), Expires: 09/02/2024 Lipid panel Lab Routine Healthcare maintenance Type 2 diabetes mellitus with hyperglycemia, without long-term current use of insulin ([facility]) (HCC) Expected: 09/03/2023, Expires: 09/02/2024 Thyroid Function [place] Lab Routine Healthcare maintenance Type 2 diabetes mellitus with hyperglycemia, without long-term current use of insulin ([facility]) (HCC) Expected: 09/03/2023, Expires: 09/02/2024 Hemoglobin A1c Lab Routine Healthcare maintenance Type 2 diabetes mellitus with hyperglycemia, without long-term current use of insulin ([facility] ([facility]) Expected: 09/03/2023, Expires: 09/02/2024 Albumin Creatinine Ratio, Urine Lab Routine Healthcare maintenance Type 2 diabetes mellitus with hyperglycemia, without long-term current use of insulin ([facility]) (HCC) Expected: 09/03/2023, Expires: 09/02/2024 Hepatitis B [...] (HCC) documented in this encounter Care Teams Senior Restaurant Manager Relationship Specialty Start Date End Date Carmelita Olivera MD [address] [place] [address] PCP - General Family Medicine 09/03/23 Brian Madera MD [address] [place] [address] Consulting Physician Neurology 04/02/22 documented as of this encounter
--- OUTSIDE RECORDS SUMMARY | 2024-03-31 16:36 | XMS_ITS | Encounter Summary ---
Author Organization [facility] Healthcare Address [address] [place] [address] Care Team Providers Care Swimming Pool Installer Name Role Phone Jocelynn Coy DO Primary Care Provider [phone] Brian Madera MD Unavailable [phone] Reason for Referral * Consultation (Routine) - Closed Specialty Diagnoses / Procedures Referred By Jamaal chiang Referred To Contact Podiatry Diagnoses Type 2 diabetes mellitus with hyperglycemia, without long-term current use of insulin (HCC) Nail fungus Jocelynn Coy DO Phone: tel: fax: Brian Mims, M [address] [place] [address] Phone: tel: fax: Referral ID Status Reason Start Date Expiration Date V isits Requested Visits Authorized [id number] Closed Specialty Services Required 03/05/2023 04/03/2024 1 1 Question Answer Please select the performing region: External Order [171] To provider: BRIAN MIMS [[id number]] ONAL LOSS PREVENTION MANAGER Reason for Visit * Reason Comments Annual Exam Pt says she is doing good. Encounter Details Date Type Department Care Team (Late Contact Info) Description 03/05/2023 8:15 AM REGIONAL LOSS PREVENTION MANAGER Office Visit [facility] Medical Group Primary Care at [address] [place] [address] Jocelynn Coy, DO [address] [facility] [place] [address] Annual physical exam (Primary Dx); [...] on file Legal Sex Female 8:45 PM REGIONAL LOSS PREVENTION MANAGER Gender Identity Female 04/25/2021 2:46 PM REGIONAL LOSS PREVENTION MANAGER Sexual Orientation Straight 04/25/2021 2: 46 PM REGIONAL LOSS PREVENTION MANAGER documented as of this encounter Last Filed Vital Signs Vital Sign Reading Time Taken Comments Blood Pressure 130/58 03/05/2023 8:45 AM REGIONAL LOSS PREVENTION MANAGER Pulse 76 03/05/2023 8:45 AM REGIONAL LOSS PREVENTION MANAGER Temperature 36.8 ??C (98.3 ??F) 03/05/2023 8:45 AM CS T Respiratory Rate 16 03/05/2023 8:45 AM REGIONAL LOSS PREVENTION MANAGER Oxygen Saturation 99% 03/05/2023 8:45 AM REGIONAL LOSS PREVENTION MANAGER Inhaled Oxygen Concentration - - Weight 57.5 kg (126 lb 12.8 oz) 03/05/2023 8:45 AM REGIONAL LOSS PREVENTION MANAGER Height 149.9 cm (4' 11.02 ) 03/05/2023 8:[address] Body Mass Index 25.6 03/05/2023 8:45 AM REGIONAL LOSS PREVENTION MANAGER documented in this encounter Patient Instructions * Patient Instructions* Jocelynn Coy, DO - 03/05/2023 8:15 AM REGIONAL LOSS PREVENTION MANAGER Images from the original note were not included. Patient Education Wellness Visit for Adults SHEET METAL HELPER: A wellness visit is when you see [...] typesof viruses cause the flu. The viruses place change roof bolter time, so new vaccines are made each [...] could distract you and cause an accident. blade groover if you need to make a call [...] boat or doing water sports. ?? Copyright [email or web address] 2021 Information is for End User's use only and may not be sold, redistributed or otherwise used for commercial purposes. All illustrations and images included in CareNotes?? are the copyrighted property of [employer]. or [employer] The above information is an educational resource center teacher only. It is not intended as [...] vaccine Thanks for coming in today! My biomedical engineering professor and I are thankful you have trusted us with your care, and hope that you received EXCELLENT care today! Although some conditions may not allow immediate improvement, I aim to always make you feel a little better leaving, than when you came in. [place] not hesitate to call, if you have any questions or concerns, at [phone]. You may receive a phone call, text, MYCHART message, or e-mail asking you to take a survey about your care today. We would love to hear your feedback on how EXCELLENT your care was today! Wishing you better health, always! Dr. Jocelynn Coy ONAL LOSS PREVENTION MANAGER ONAL LOSS PREVENTION MANAGER documented in this encounter Ordered Prescriptions Prescription [...] a living will or durable power of call center coordinator?: (!) No Would you like information regarding Advanced Directive (Living Will) and/or Durable Power of Beef Ribber?: (!) Yes Do you have to strain [...] as PCP - General (Family Medicine) Brian Madrea MD as Consulting Physician (Neurology) Primary Pharmacy/DME suppliers: [id number] [place] [address] [address] [facility] [place] [address] [place] [address] Detection of Cognitive Impairment: The patient does [...] Physical Activity Advanced Directive Durable Power of Beef Ribber: Discussed Today: Living Will: Discussed Today: Assessment [...] of insulin ([facility]) (HCC) Assessment & Plan: A1c [...] This note is dictated and transcribed by [facility] Direct Software. School Aide variances may occur. Despite proofreading, typographical errors may occur. Jocelynn Coy DO ONAL LOSS PREVENTION MANAGER documented in this encounter Miscellaneous Notes * Assessment & Plan Note - Jocelynn Coy DO - 03/05/2023 1:36 PM REGIONAL LOSS PREVENTION MANAGER Associated Problem(s): Hyperlipidemia associated with type 2 diabetes mellitus (HCC) LDL at goal of less than 100, continue current prescription medications, atorvastatin. ONAL LOSS PREVENTION MANAGER * Assessment & Plan Note - Jocelynn Coy DO - 03/05/2023 1:36 PM REGIONAL LOSS PREVENTION MANAGER Associated Problem(s): Nail fungus Referred back to podiatry for further treatments. 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 Doing well. ONAL LOSS PREVENTION MANAGER * Assessment & Plan Note - Jocelynn Coy DO - 03/05/2023 1:35 PM REGIONAL LOSS PREVENTION MANAGER Associated Problem(s): Type 2 diabetes mellitus with hyperglycemia, without long-term current use of insulin (HCC) A1c at goal of less than 8.0, continue current prescription medications, atorvastatin, lisinopril, metformin xr. ONAL LOSS PREVENTION MANAGER * Assessment & Plan Note - Jocelynn Coy DO - 03/05/2023 1:33 PM REGIONAL LOSS PREVENTION MANAGER Associated Problem(s): Generalized anxiety disorder Clinically improved, continue current prescription medications, lorazepam. ONAL LOSS PREVENTION MANAGER * Assessment & Plan Note - Jocelynn Coy DO - 03/05/2023 1:31 PM REGIONAL LOSS PREVENTION MANAGER Associated Problem(s): Hypertension associated with diabetes (HCC) Blood pressure at goal less than 140/90, continue current prescription medications, amlodipine, lisinopril. ONAL LOSS PREVENTION MANAGER documented in this encounter Plan of Treatment Scheduled Referrals Name Type Priority Associated Diagnoses Order Schedule Ambulatory referral to Podiatry Outpatient Referral Routine Type 2 diabetes mellitus with hyperglycemia, without long-term current use of insulin ([facility]/HCC) (HCC) Nail fungus Ordered: 03/05/2023 documented as of this encounter Results * Lipid panel (03/18/2023 1:58 PM REGIONAL LOSS PREVENTION MANAGER) [facility] Cholesterol 167 30 - 199 mg/dL JOSE [...] YUKI MARCELINO (JANE) Blood 03/18/2023 1:58 PM REGIONAL LOSS PREVENTION MANAGER 03/18/2023 3:53 PM REGIONAL LOSS PREVENTION MANAGER us Jocelynn Coy DO LAB BLOOD ORDERABLES Final Result JOSE MARCELINO (JANE) 1 [facility] Department [place] [address] * Albumin Creatinine Ratio, Urine (03/18/2023 1:58 PM REGIONAL LOSS PREVENTION MANAGER) Albumin Ur 47.4 mg/L JOSE Clarke (JANE) Comment: Interpretive Data No reference range established. Current interpretive data was last revised 2018. Testing performed by: [facility], [address] [place]., [address] Creatinine Ur 383.9 mg/dL [facility] (JANE) Comment: Interpretive Data No reference range established. Current interpretive data was last revised 2018. Testing performed by: [facility], [address] [place] [address]., [address] Albumin Creatinine Ratio, Ur 12 1 - 29 mg/g [facility] (JANE) Comment:Testing performed by : [facility], [address] [place] [address]., [address] Urine 03/18/2023 1:58 PM REGIONAL LOSS PREVENTION MANAGER 03/19/2023 9:36 AM REGIONAL LOSS PREVENTION MANAGER Jocelynn Coy DO LAB URINE ORDERABLES Final Result Performing Organization Address [facility] de Phone Number [facility] ([place]ANE) 1 [facility] [place] [address] * (ABNORMAL) Hemoglobin A1c (03/18/2023 1:58 PM REGIONAL LOSS PREVENTION MANAGER) Pathologist [facility] Hgb A1C 6.7(H) 4.0 - 5.6 % [facility] (JANE) Estimated Average Glucose 146 mg/dL [facility] ([place]ANE) Comment: The ADA recommends reporting an estimated Average Glucose (eAG) with all Hemoglobin A1c results using the equation derived from a study of 507 normal and diabetic adults. ??Minority populations were underrepresented and children were not included. ?? (Diabetes Care 31:3427-8620, 2008). ??The eAG is not equivalent to a fasting glucose. Blood 03/18/2023 1:58 PM REGIONAL LOSS PREVENTION MANAGER 03/18/2023 3:53 PM REGIONAL LOSS PREVENTION MANAGER Jocelynn Coy DO LAB BLOOD ORDERABLES Final Result Performing Organization Address [facility] Co de Phone Number [facility] ([place]) 1 [facility] [email or web address] [address] * Comprehensive metabolic panel (03/18/2023 1:58 PM REGIONAL LOSS PREVENTION MANAGER) Sodium 137 135 - 145 mmol/L [facility] (JANE) Potassium, pl 4.2 3.3 - 4.9 [...] [facility] ([place]ANE) Blood 03/18/2023 1:5 8 PM REGIONAL LOSS PREVENTION MANAGER 03/18/2023 3:53 PM REGIONAL LOSS PREVENTION MANAGER us Jocelynn Coy DO LAB BLOOD ORDERABLES Final Result [facility] ([place]ANE) 1 [facility] Department [place] [address] documented in this encounter Visit Diagnoses Diagnosis [...] 03/05/2023 documented in this encounter Care Teams Swimming Pool Installer Relationship Specialty Start Date End Date Jocelynn Coy DO PCP - General Family Medicine 06/10/17 09/02/23 Brian Madera MD [address] [place] [address] [place] [address] Consulting Physician Neurology 04/02/22 documented as of this encounter
--- OUTSIDE RECORDS SUMMARY | 2024-03-31 16:36 | XMS_ITS | Encounter Summary ---
Author Organization [facility] Healthcare Address [address] [place] [address] Care Team Providers Care Clothing Examiner Name Role Phone Brian Madera MD Unavailable [phone] Carmelita Olivera MD Primary Care Provide r Encounter Details Date Type Department Care Team (Late st Contact Info) Description 09/03/2023 Telephone [facility] Medical Group Primary Care at [address] [address] Carmelita Olivera MD [address] [place] [address] Social History Tobacco Use Types Packs/Day [...] file Legal Sex Female 8:45 PM ADVERTISING SALES AGENT Gender Identity Female 04/25/2021 2:46 PM ADVERTISING SALES AGENT Sexual Orientation Straight 04/25/2021 2: 46 PM ADVERTISING SALES AGENT documented as of this encounter Miscellaneous Notes * Telephone Encounter - Ivette Davenport - 09/05/2023 1:44 PM CDT Referral sent, pt will be contacted for scheduling. * Telephone Encounter - Beth Agosto - 09/03/2023 9:45 AM CDT The patient wants to go [facility] in [facility] ordered * Telephone Encounter - Beth Agosto - 09/03/2023 9:45 AM CDT Images from the original note were not included. documented in this encounter Plan of Treatment Not on file documented as of this encounter Visit Diagnoses Not on filedocumented in this encounter Care Teams Clothing Examiner Relationship Specialty Start Date End Date Carmelita Olivera MD [address] [facility] [address] [place] [address] PCP - General Family Medicine 09/03/23 Brian Madera MD [address] [facility] [address] [place] [address] Consulting Physician Neurology 04/02/22 documented as of this encounter
--- OUTSIDE RECORDS SUMMARY | 2024-03-31 16:36 | XMS_ITS | Encounter Summary ---
Author Organization [facility] Healthcare Address [address] [place] [address] Care Team Providers Care Java Software Name Role Phone Jocelynn Coy Primary Care Provider [phone]- [phone] Brian Madera MD Unavailable [phone] Reason for Visit * Reason Comments Hallucinations Urinary Problem Encounter Details Date Type Department Care Team (Late st Contact Info) Description 06/13/2023 5:28 PM SUPERVISOR ASBESTOS TEXTILE - 06/13/2023 8:15 PM SUPERVISOR ASBESTOS TEXTILE Emergency [facility] Emergency Department [address] [place] [address] Dodie Mckenzie MD [address] [place] [address] [place] [address] Hallucinations (Primary Dx) Discharge Disposition: Discharge to [...] file Legal Sex Female 8:45 PM SUPERVISOR ASBESTOS TEXTILE Gender Identity Female 04/25/2021 2:46 PM SUPERVISOR ASBESTOS TEXTILE Sexual Orientation Straight 04/25/2021 2: 46 PM SUPERVISOR ASBESTOS TEXTILE documented as of this encounter Last Filed Vital Signs Vital Sign Reading Time Taken Comments Blood Pressure 111/64 06/13/2023 5:21 PM SUPERVISOR ASBESTOS TEXTILE Pulse 63 06/13/2023 5:21 PM SUPERVISOR ASBESTOS TEXTILE Temperature 37 ??C (98.6 ??F) 06/13/2023 5:21 PM SUPERVISOR ASBESTOS TEXTILE Respiratory Rate 18 06/13/2023 8:13 PM SUPERVISOR ASBESTOS TEXTILE Oxygen Saturation 100% 06/13/2023 5:21 PM SUPERVISOR ASBESTOS TEXTILE Inhaled Oxygen Concentration - - Weight 54.4 kg (120 lb) 06/13/2023 5:21 PM SUPERVISOR ASBESTOS TEXTILE Height 152.4 cm (5') 06/13/2023 5:21 PM SUPERVISOR ASBESTOS TEXTILE Body Mass Index 23.44 06/13/2023 5:21 PM SUPERVISOR ASBESTOS TEXTILE documented in this encounter Discharge Instructions * Discharge Instructions* Dodie Mckenzie MD - 06/13/2023 7:30 PM SUPERVISOR ASBESTOS TEXTILE Your head CT showed no acute findings. Your urinalysis did not indicate infection. Your lab work was otherwise normal. Please call your primary care doctor in the morning for possible referral to Psychiatry for follow-up with the hallucinations. Return if worse or as needed. RVISOR ASBESTOS TEXTILE * Attachments The following attachments cannot be sent through Care Everywhere. * Hallucinations (AfterCare(R) Instructions(ER/ED)) (Prydeinig) documented in this encounter Medications at Time [...] hyperglycemia, without long-term current use of insulin ([facility]) 1 Device daily 100 each 3 10/03/2020 sodium chloride (TRISTAN 128) 5 % ophthalmic solution Administer 1 drop into both eyes as needed 02/27/2023 amLODIPine (NORVASC) 10 mg tabletIndication s:Hypertension associated with diabetes ([facility]) Take 1 tablet (10 mg total) by mouth nightly 90 tablet 3 09/20/2022 4 atorvastatin (LIPITOR) 20 mg tabletIndication s:Hyperlipidemia associated with type 2 diabetes mellitus ([facility]) Take 1 tablet (20 mg total) by mouth nightly 90 tablet 3 09/20/2022 4 lisinopriL (PRINIVIL,ZESTRI L) 2.5 mg tabletIndication s:Type 2 diabetes mellitus with hyperglycemia, without long-term current use of insulin ([facility]),Hypertensi on associated with diabetes ([facility]) Take 1 tablet (2.5 mg total) by [...] hyperglycemia, without long-term current use of insulin ([facility]) Take 1 tablet (500 mg total) by [...] Follow-ups Jocelynn Coy DO Specialty: Family Medicine [address] [place] [address] [place] [address] Next Steps: Call in 1 day(s) Instructions: [...] Krzysztof Raymundo 06/13/239 Dodie Mckenzie MD 06/13/231932 RVISOR ASBESTOS TEXTILE * Vijaya Saleem RN - 06/13/2023 5:19 PM CST Pt to ED with daughter for c/o hallucinations and an odor to her urine since Saturday. Pt has been seeing kids that aren't there per daughter. Pt has hx of dementia per daughter. RVISOR ASBESTOS TEXTILE documented in this encounter Plan of Treatment Not on file documented as of this encounter Procedures Procedure Name Priority Date/Time Associated Diagnosis Comments EGFR STAT 06/13/2023 6:34 PM SUPERVISOR ASBESTOS TEXTILE DIFFERENTIAL AUTO STAT 06/13/2023 6:3 4 PM SUPERVISOR ASBESTOS TEXTILE CBC WITH AUTO DIFFERENTIAL STAT 06/13/2023 6:34 PM SUPERVISOR ASBESTOS TEXTILE COMPREHENSIVE METABOLIC PANEL STAT 06/13/2023 6:34 [address]BE[employer] TEXTILE CT HEAD WO CONTRAST ED 06/13/2023 6 :04 PM SUPERVISOR ASBESTOS TEXTILE URINALYSIS AND REFLEX TO MICROSCOPIC AND CULTURE STAT 06/13/2023 5:41 PM SUPERVISOR ASBESTOS TEXTILE documented in this encounter Results * eGFR (06/13/2023 6:34 PM SUPERVISOR ASBESTOS TEXTILE) eGFR 73 mL/min/1. 73 m2 JOSE MARCELINO [...] last reviewed 2021. Blood 06/13/2023 6:34 PM SUPERVISOR ASBESTOS TEXTILE 06/13/2023 6:37 PM SUPERVISOR ASBESTOS TEXTILE us Dodie Mckenzie MD LAB BLOOD ORDERABLES Final Resul t JOSE MARCELINO (FRES[place]) [address] [facility] [place] [address] * Differential, auto (06/13/2023 6:34 PM SUPERVISOR ASBESTOS TEXTILE) Neutrophil abs 3.1 1.5 - 6.5 K/cumm [...] revised on 2017. Blood 06/13/2023 6:34 PM SUPERVISOR ASBESTOS TEXTILE 06/13/2023 6:37 PM SUPERVISOR ASBESTOS TEXTILE us Dodie Mckenzie MD LAB BLOOD ORDERABLES Final Resul t [facility] ([place] [address] [facility] Department [place] [address] * Comprehensive metabolic panel (06/13/2023 6:34 PM SUPERVISOR ASBESTOS TEXTILE) Sodium 138 135 - 145 mmol/L CERNER [...] [facility] ([place]ANE) Blood 06/13/2023 6:34 PM SUPERVISOR ASBESTOS TEXTILE 06/13/2023 6:37 PM SUPERVISOR ASBESTOS TEXTILE us Dodie Mckenzie MD LAB BLOOD ORDERABLES Final Resul t [facility] ([place]) [address] [facility] Department [place] [address] * (ABNORMAL) CBC with auto differential (06/13/2023 6:34 PM SUPERVISOR ASBESTOS TEXTILE) WBC 6.5 3.8 - 9.9 K/cumm CERNER [...] 0.00 0.00 - 0.01 K/cumm [facility] (JNAE) Blood 06/13/2023 6:34 PM SUPERVISOR ASBESTOS TEXTILE 06/13/2023 6:37 PM SUPERVISOR ASBESTOS TEXTILE us Dodie Mckenzie MD LAB BLOOD ORDERABLES Final Resul t JOSE MARCELINO ([place]) [address] [facility] Department [place] [address] * CT Head WO Contrast (06/13/2023 6:04 PM SUPERVISOR ASBESTOS TEXTILE) Anatomical Region Laterality Modality Head and Neck N/A Computed Tomogra phy 06/13/2023 6:11 PM SUPERVISOR ASBESTOS TEXTILE Narrative 06/13/2023 6:15 PM SUPERVISOR ASBESTOS TEXTILE EXAM DESCRIPTION: CT HEAD WO CONTRAST REASON [...] is stable mild volume loss. ??There are fbbj-[id number] patchy areas of hypodensity in the periventricular, [...] PM T: ??06/13/2023 6:15 PM Report ID: [id number] Reading Location: ??[id number] Procedure Note Brian Martinez MD - 06/13/2023 [...] is stable mild volume loss. There are [id number] areas of hypodensity in the periventricular, subcortical [...] Martinez M.D., D.O. MW: VELMA Report ID: [id number] Reading Location: [id number] Dodie Mckenzie MD IM CT PROCEDURES Final Result * (ABNORMAL) Urinalysis reflex to microscopic and culture Urine (06/13/2023 5:41 PM SUPERVISOR ASBESTOS TEXTILE) Color, ur Yellow Yellow [facility] ([place]ANE) [...] tendency for uric acid stone formation. Source: [facility] PeriGen Current Interpretive Data was last revised on [...] UA and culture not met. [facility] ([place]ANE) Urine 06/13/2023 5:41 PM SUPERVISOR ASBESTOS TEXTILE 06/13/2023 5:43 PM SUPERVISOR ASBESTOS TEXTILE us Neetu Mays MD LAB MICROBIOLOGY - GENERA L ORDERABLES Final Result JOSE MARCELINO ([place]ANE) [address] [facility] [place] [address] documented in this encounter Visit Diagnoses Diagnosis Hallucinations- Primary documented in this encounter Administered Medications Inactive Administered Medications - up to 3 most recent administrations Medication Order MAR Action Action Date Dose Rate Site sodium chloride 0.9% bolus 250 mL 250 mL, intravenous, Once, On Emilee 06/13/23 at 1740, For 1 dose New Bag 06/13/2023 6:31 PM SUPERVISOR ASBESTOS TEXTILE 250 mL documented in this encounter Active and Recently Administered Medications Times are shown in SUPERVISOR ASBESTOS TEXTILE. Scheduled Medication Order 06/11/2023 06/12/2023 06/13/2023 sodium [...] documented as of this encounter Care Teams Java Software Relationship Specialty Start Date End Date Jocelynn Coy DO PCP - General Family Medicine 06/10/17 09/02/23 Brian Madera MD [address] [facility] [address] Consulting Physician Neurology 04/02/22 documented as of this encounter
--- OUTSIDE RECORDS SUMMARY | 2024-03-31 16:36 | XMS_ITS | Encounter Summary ---
Author Organization [facility] Address [address] [place] [address] Care Team Providers Care Ear Specialist Name Role Phone Jocelynn Coy DO Primary Care Provider [phone]- [phone] Brian Madera MD Unavailable [phone] Reason for Visit * Reason Comments Essence Enhanced Encounter Encounter Details Date Type Department Care Team (Late st Contact Info) Description 04/02/2022 1:45 PM SMOKING PIPE MOUNTER Office Visit [facility] Primary Care at [address] [place] [address] Jocelynn Coy DO [address] [facility] [address] [address] Annual physical exam (Primary Dx); [...] on file Legal Sex Female 8:45 PM SMOKING PIPE MOUNTER Gender Identity Female 04/25/2021 2:46 PM SMOKING PIPE MOUNTER Sexual Orientation Straight 04/25/2021 2: 46 PM SMOKING PIPE MOUNTER documented as of this encounter Last Filed Vital Signs Vital Sign Reading Time Taken Comments Blood Pressure 127/68 04/02/2022 2:36 PM SMOKING PIPE MOUNTER Pulse 79 04/02/2022 2:36 PM SMOKING PIPE MOUNTER Temperature 36.7 ??C (98 ??F) 04/02/2022 1:58 PM SMOKING PIPE MOUNTER Respiratory Rate 14 04/02/2022 1:58 PM SMOKING PIPE MOUNTER Oxygen Saturation 98% 04/02/2022 1:58 PM SMOKING PIPE MOUNTER Inhaled Oxygen Concentration - - Weight 61.1 kg (134 lb 12.8 oz) 04/02/2022 1:58 PM SMOKING PIPE MOUNTER Height 149.9 cm (4' 11.02 ) 04/02/2022 1:[address] Body Mass Index 27.21 04/02/2022 1:58 PM SMOKING PIPE MOUNTER documented in this encounter Patient Instructions * Patient Instructions* Jocelynn Coy, - 04/02/2022 1:45 PM SMOKING PIPE MOUNTER Images from the original note were not included. Patient Education Wellness Visit for Adults DEPARTMENT EDITOR: A wellness visit is when you see [...] typesof viruses cause the flu. The viruses meter changes records clerk time, so new vaccines are made each [...] could distract you and cause an accident. seat covers trimmer if you need to make a call [...] boat or doing water sports. ?? 2017 [employer] Information is for End User's use only and may not be sold, redistributed or otherwise used for commercial purposes. All illustrations and images included in CareNotes?? are the copyrighted property of [employer].A.[employer] Inc. or [employer]. The above information is an playground aide only. It is not intended as [...] Thanks for coming in today! My medical education manager, Mikaela, and sometimes (America, Yoselin, or Delphine) [...] you have any questions or concerns, at [phone]. You may receive a phone call, text, MYCHART message, or e-mail asking you to take a survey about your care today. We would love to hear your feedback on how EXCELLENTyour care was today! Wishing you better health, always! Dr. Jocelynn Coy ING PIPE MOUNTER documented in this encounter Ordered Prescriptions Prescription [...] a living will or durable power of cat dog or other pet groomer?: No Would you like information regarding Advanced Directiv (Living Will) and/or Durable Power of Structural Mill Supervisor?: Yes Do you have to strain or [...] Late onset Alzheimer's dementia without behavioral disturbance ([facility]) History reviewed. No pertinent past medical history. [...] Physician (Neurology) Primary Pharmacy/DME suppliers: [id number] [address] Detection of Cognitive Impairment: The patient does [...] Physical Activity Advanced Directive Durable Power of Structural Mill Supervisor: Discussed Today: Living Will: Discussed Today: Assessment [...] with type 2 diabetes mellitus ([facility]) Assessment & Plan: LDL at goal of less than 100, continue current prescription medications. Orders: - Comprehensive metabolic panel; Future - Lipid panel; Future Type 2 diabetes mellitus with hyperglycemia, without long-term current use of insulin ([facility]) (HCC) Assessment & Plan: A1c at goal of less than 8.0, continue current prescription medications. Orders: - Hemoglobin A1c; Future Generalized anxiety disorder Assessment & Plan: Clinically improved, continue current prescription medications. Orders: - LORazepam (ATIVAN) 0.5 mg tablet; Take 1 tablet (0.5 mg total) by mouth as needed for anxiety Late onset Alzheimer's dementia without behavioral disturbance ([facility]) Assessment & Plan: Stable. Cont. Current prescription medications. Need for influenza vaccination - Flu Vaccine Quad High Dose PF 65Y+ IM - Fluzone High Dose Quad Patient here for annual Medicare wellness visit and for review of complete medical problem list. All the elements of the plan were completed as outlined by [facility]. A copy of the prevention plan [...] This note is dictated and transcribed by [employer]. Swatch Cutter variances may occur. Despite proofreading, typographical errors may occur. Jocelynn Coy DO ING PIPE MOUNTER documented in this encounter Miscellaneous Notes * Assessment & Plan Note - Jocelynn Coy DO - 04/02/2022 4:24 PM SMOKING PIPE MOUNTER Associated Problem(s): Type 2 diabetes mellitus with hyperglycemia, without long-term current use of insulin ([facility]) A1c at goal of less than 8.0, continue current prescription medications. 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 Cont. Current prescription medications. ING PIPE MOUNTER * Assessment & Plan Note - Jocelynn Coy DO - 04/02/2022 4:24 PM SMOKING PIPE MOUNTER Associated Problem(s): Hypertension associated with diabetes (HCC) Blood pressure is at goal of less than 140/90, continue current prescription medications. ING PIPE MOUNTER * Assessment & Plan Note - Jocelynn Coy DO - 04/02/2022 4:23 PM SMOKING PIPE MOUNTER Associated Problem(s): Hyperlipidemia associated with type 2 diabetes mellitus (HCC) LDL at goal of less than 100, continue current prescription medications. ING PIPE MOUNTER * Assessment & Plan Note - Jocelynn Coy DO - 04/02/2022 4:23 PM SMOKING PIPE MOUNTER Associated Problem(s): Generalized anxiety disorder Clinically improved, continue current prescription medications. ING PIPE MOUNTER documented in this encounter Plan of Treatment Not on file documented as of this encounter Results * Lipid panel (04/02/2022 3:52 PM SMOKING PIPE MOUNTER) [facility] Cholesterol 145 30 - 199 mg/dL JOSE [...] YUKI MARCELINO (JANE) Blood 04/02/2022 3:52 PM SMOKING PIPE MOUNTER 04/02/2022 4:58 PM SMOKING PIPE MOUNTER Jocelynn Coy DO LAB BLOOD ORDERABLES Final Result JOSE MARCELINO ([place]ANE) [address] [facility] [address] [place] [address] * (ABNORMAL) Hemoglobin A1c (04/02/2022 3:52 PM SMOKING PIPE MOUNTER) Hgb A1C 7.3(H) 4.0 - 5.6 % [facility] (JANE) Estimated Average Glucose 163 mg/dL [facility] (JANE) Comment: The ADA recommends reporting an estimated Average Glucose (eAG) with all Hemoglobin A1c results using the equation derived from a study of 507 normal and diabetic adults. ??Minority populations were underrepresented and children were not included. ?? (Diabetes Care 31:6598-9865, 2008). ??The eAG is not equivalent to a fasting glucose. Blood 04/02/2022 3:52 PM SMOKING PIPE MOUNTER 04/02/2022 4:58 PM SMOKING PIPE MOUNTER Jocelynn Coy DO LAB BLOOD ORDERABLES Final Result JOSE MARCELINO ([place]) [address] [facility] [address] [place] [address] * Comprehensive metabolic panel (04/02/2022 3:52 PM SMOKING PIPE MOUNTER) Sodium 137 135 - 145 mmol/L [facility] (JANE) Potassium, pl 3.8 3.3 - 4.9 mmol/L [facility] (JANE) Chloride 101 97 - 110 mmol/L [facility] ([place]ANE) CO2 28 22 - 32 mmol/L [facility] ([place]ANE) Anion gap 8 2 - 15 mmol/L [facility] ([place]ANE) BUN 12 8 - 25 mg/dL [facility] ([place]ANE) Creatinine 0.68 0.60 - 1.10 mg/dL [facility] ([place]ANE) Glucose 84 70 - 199 mg/dL [facility] ([place]ANE) Comment: Interpretive Data Fasting glucose >/= [...] [facility] ([place]) Blood 04/02/2022 3:52 PM SMOKING PIPE MOUNTER 04/02/2022 4:58 PM SMOKING PIPE MOUNTER us Jocelynn Coy DO LAB BLOOD ORDERABLES Final Result [facility] ([place]ANE) 1 [facility] Department [place] [address] documented in this encounter Visit Diagnoses Diagnosis [...] 04/02/2022 documented in this encounter Care Teams Ear Specialist Relationship Specialty Start Date End Date Jocelynn Coy DO PCP - General Family Medicine 06/10/17 09/02/23 Brian Madera MD [address] [place] [address] [place] [address] Consulting Physician Neurology 04/02/22 documented as of this encounter
--- OUTSIDE RECORDS SUMMARY | 2024-03-31 16:36 | XMS_ITS | Encounter Summary ---
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) Jocelynn Coy DO Phone: tel: fax: Brian Madera MD [address] [place] [address] [address] Phone: tel: fax: Referral ID Status Reason Start Date Expiration Date V isits Requested Visits Authorized [id number] Closed Specialty Services Required 07/12/2023 08/13/2023 1 1 Question Answer Please select the performing region: [facility] [[id number]] Please select the performing department: [facility] [[id number]] To provider: BRIAN MADERA [[id number]] # of visits: 1 Encounter Details Date Type Department Care Team (Late st Contact Info) Description 07/11/2023 Orders Only [facility] Primary Care at [address] [place] [address] Jocelynn Coy DO [address] [facility] [address] [place] [id number] 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) (Primary [...] on file Legal Sex Female 8:45 PM ACCOUNTS RECEIVABLE COLLECTOR Gender Identity Female 04/25/2021 2:46 PM ACCOUNTS RECEIVABLE COLLECTOR Sexual Orientation Straight 04/25/2021 2: 46 PM ACCOUNTS RECEIVABLE COLLECTOR documented as of this encounter Plan of [...] documented as of this encounter Care Teams Customer Experience Associate Relationship Specialty Start Date End Date Jocelynn Coy DO PCP - General Family Medicine 06/10/17 09/02/23 Brian Madera MD [address] [facility] [address] MANCINI [address] [place] [address] [address] Consulting Physician Neurology 04/02/22 documented as of this encounter
--- OUTSIDE RECORDS SUMMARY | 2024-03-31 16:36 | XMS_ITS | Encounter Summary ---
Author Organization [facility] Healthcare Address [address] [place] [address] Care Team Providers Care Plate Gauger Name Role Phone Jocelynn Coy DO Primary Care Provider [phone]- [phone] Brian Madera MD Unavailable [phone] Reason for Visit * Reason Onset Date Comments Medical Question/Miscellaneous 05/20/2023 Encounter Details Date Type Department Care Team (Late st Contact Info) Description 05/20/2023 Telephone [facility] Primary Care at [address] [place] [address] [place] [address] [place] [address] [place] [address] Medical Question/Miscellaneous Social History Tobacco [...] on file Legal Sex Female 8:45 PM NUCLEAR PHYSICIAN Gender Identity Female 04/25/2021 2:46 PM NUCLEAR PHYSICIAN Sexual Orientation Straight 04/25/2021 2: 46 PM NUCLEAR PHYSICIAN documented as of this encounter Miscellaneous Notes * Telephone Encounter - Letitia Velásquez MA - 05/21/2023 12:04 PM CST I spoke with patients kesha Deal and relayed message from Dr. Coy. Thank you, Letitia Goodson [facility] Registered Clinical Dietitian [facility] ACO [phone] EAR PHYSICIAN * Telephone Encounter - Delphine Key MA - 05/20/2023 10:41 AM CST Attempted to contact patients kesha Deal, with no answer. Left message to contact the office back. If Annita calls back, please relay message from . EAR PHYSICIAN * Telephone Encounter - Delphine Key MA - 05/20/2023 10:16 AM CST Medication has been d/c and listed as allergy list for hallucinations EAR PHYSICIAN * Telephone Encounter - Gabrielle Rivera MA [...] message need to be routed? Yes-Action Needed EAR PHYSICIAN documented in this encounter Plan of Treatment [...] documented as of this encounter Care Teams Plate Gauger Relationship Specialty Start Date End Date Jocelynn Coy DO PCP - General Family Medicine 06/10/17 09/02/23 Brian Madera MD [address] [facility] [address] [facility] [place] [address] Consulting Physician Neurology 04/02/22 documented as of this encounter
--- OUTSIDE RECORDS SUMMARY | 2024-03-31 16:36 | XMS_ITS | Encounter Summary ---
Author Organization [facility] Healthcare Address [address] [place] [address] Care Team Providers Care Payroll Examiner Name Role Phone Jocelynn Coy DO Primary Care Provider [phone]- [phone] Brian Madera MD Unavailable Reason for Visit * Reason Comments Alzheimer's Disease Worsening, now havin g hallucinations. ER f/u Encounter Details Date Type Department Care Team (Late st Contact Info) Description 06/17/2023 1:00 PM RN STAFF Office Visit [facility] Medical [facility] Primary Care at [address] [place] [address] Jocelynn Coy, [address] [place] [address] Moderate late onset Alzheimer's dementia with psychotic [...] on file Legal Sex Female 8:45 PM RN STAFF Gender Identity Female 04/25/2021 2:46 PM RN STAFF Sexual Orientation Straight 04/25/2021 2: 46 PM RN STAFF documented as of this encounter Last Filed Vital Signs Vital Sign Reading Time Taken Comments Blood Pressure 126/58 06/17/2023 12:46 PM RN STAFF Pulse 65 06/17/2023 12:46 PM RN STAFF Temperature 36.4 ??C (97.5 ??F) 06/17/2023 1 2:46 PM RN STAFF Respiratory Rate 16 06/17/2023 12:4 6 PM RN STAFF Oxygen Saturation 99% 06/17/2023 12: 46 PM RN STAFF Inhaled Oxygen Concentration - - Weight 56.2 kg (123 lb 14.4 oz) 024 12:46 PM RN STAFF Height 149.9 cm (4' 11 ) 06/17/2023 12: 46 PM RN STAFF Body Mass Index 25.02 06/17/2023 12:46 PM RN STAFF documented in this encounter Patient Instructions * Patient Instructions* Jocelynn Coy, - 06/17/2023 1:00 PM RN STAFF Health Maintenance Topics with due status: Overdue Topic Date Due Dilated Eye Exam Never done Zoster Vaccine Never done Covid-19 Vaccine 12/14/2022 Thanks for coming in today! My medical research tech and I are thankful you have trusted us with your care, and hope that you received EXCELLENT care today! Although some conditions may not allow immediate improvement, I aim to always make you feel a little better leaving, than when you came in. [place] not hesitate to call, if you have any questions or concerns, at [phone]. You may receive a phone call, text, MYCHART message, or e-mail asking you to take a survey about your care today. We would love to hear your feedback on how EXCELLENT your care was today! Wishing you better health, always! Dr. Jocelynn Coy STAFF * Attachments The following attachments cannot be sent through Care Everywhere. * Hallucinations (Publications Writer) ([place]i) documented in this encounter Ordered Prescriptions Prescription [...] This note is dictated and transcribed by [employer] Direct Software. Fiscal Analyst variances may occur. Despite proofreading, typographical errors [...] documented as of this encounter Care Teams Payroll Examiner Relationship Specialty Start Date End Date Jocelynn Coy DO PCP - General Family Medicine 06/10/17 09/02/23 Brian Madera MD [address] [facility] [place] [address] Consulting Physician Neurology 04/02/22 documented as of this encounter
--- OUTSIDE RECORDS SUMMARY | 2024-03-31 16:36 | XMS_ITS | Encounter Summary ---
Author Organization [facility] Healthcare Address [address] [place] [address] Care Team Providers Care Tongue Presser Name Role Phone Jocelynn Coy DO Primary Care Provider [phone]- [phone] Brian Madera MD Unavailable [phone] Encounter Details Date Type Department Care Team (Late st Contact Info) Description 06/28/2023 Telephone [facility] Medical Group Primary Care at [address] [place] [address] Jocelynn Coy DO [address] [facility] [place] [address] Social History Tobacco Use Types [...] on file Legal Sex Female 8:45 PM LOCOMOTIVE CRANE OPERATOR HELPER Gender Identity Female 04/25/2021 2:46 PM LOCOMOTIVE CRANE OPERATOR HELPER Sexual Orientation Straight 04/25/2021 2: 46 PM LOCOMOTIVE CRANE OPERATOR HELPER documented as of this encounter Miscellaneous [...] documented as of this encounter Care Teams Tongue Presser Relationship Specialty Start Date End Date Jocelynn Coy DO PCP - General Family Medicine 06/10/17 09/02/23 Brian Madera MD [address] [facility] [facility] [place] [address] Consulting Physician Neurology 04/02/22 documented as of this encounter
--- OUTSIDE RECORDS SUMMARY | 2024-03-31 16:36 | XMS_ITS | Encounter Summary ---
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) Jocelynn Coy DO Phone: tel: fax: Brian Madera MD [address] [place] [address] [address] [place] [address] Phone: tel: fax: Referral ID Status Reason Start Date Expiration Date V isits Requested Visits Authorized [id number] Closed Specialty Services Required 09/04/2021 04/14/2023 12 12 Encounter Details Date Type Department Care Team (Late st Contact Info) Description 03/18/2023 1:30 PM GRADUATE ENGINEER Office Visit [facility] [address] [facility] [address] [place] [address] Kate Diaz NP [address] [place] [address] [address] [place] [address] Late onset Alzheimer's dementia without behavioral disturbance [...] on file Legal Sex Female 8:45 PM GRADUATE ENGINEER Gender Identity Female 04/25/2021 2:46 PM GRADUATE ENGINEER Sexual Orientation Straight 04/25/2021 2: 46 PM GRADUATE ENGINEER documented as of this encounter Last Filed Vital Signs Vital Sign Reading Time Taken Comments Blood Pressure 110/52 03/18/2023 1:06 PM GRADUATE ENGINEER Pulse 71 03/18/2023 1:06 PM GRADUATE ENGINEER Temperature - - Respiratory Rate 16 03/18/2023 1:06 PM GRADUATE ENGINEER Oxygen Saturation 96% 03/18/2023 1:06 PM GRADUATE ENGINEER Inhaled Oxygen Concentration - - Weight 57.2 kg (126 lb) 03/18/2023 1:06 PM GRADUATE ENGINEER Height 149.9 cm (4' 11.02 ) 03/18/2023 1:[address] Body Mass Index 25.44 03/18/2023 1:06 PM GRADUATE ENGINEER documented in this encounter Progress Notes * [...] limited. 03/18/2023 [place] cognitive assessment today showed [place] cognitive assessment 14/30 (visuospatial/executive -4, naming -2, [...] Phospho tau 24.5 (<=21.7 pg/mL) 3. 11/17/2021 [place] cognitive assessment 15/30 (visuospatial/executive -4, naming -1, attention -4, language -2, delayed recall -5) 4. 08/10/2022- [place] cognitive assessment today showed [place] cognitive assessment 15/30 (visuospatial/executive -4, naming -1, attention -4, language - 2, delayed recall -5, orientation -1). Return in about 6 months (around 09/17/2023). UATE ENGINEER documented in this encounter Plan of Treatment Not on file documented as of this encounter Visit Diagnoses Diagnosis 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)- Primary documented in this encounter Care Teams Retail Office Associate Relationship Specialty Start Date End Date Jocelynn Coy DO PCP - General Family Medicine 06/10/17 09/02/23 Brian Madera MD [address] [place] [address] Consulting Physician Neurology 04/02/22 documented as of this encounter
--- OUTSIDE RECORDS SUMMARY | 2024-03-31 16:36 | XMS_ITS | Encounter Summary ---
Author Organization [facility] Healthcare Address [address] [place] [address] Care Team Providers Care Consumer Affairs Specialist Name Role Phone Jocelynn Coy Primary Care Provider [phone]- [phone] Brian Madera MD Unavailable [phone] Encounter Details Date Type Department Care Team (Late st Contact Info) Description 03/18/2023 2:00 PM ATTENDANCE SECRETARY Lab [address] Type 2 diabetes mellitus with hyperglycemia, [...] on file Legal Sex Female 8:45 PM ATTENDANCE SECRETARY Gender Identity Female 04/25/2021 2:46 PM ATTENDANCE SECRETARY Sexual Orientation Straight 04/25/2021 2: 46 PM ATTENDANCE SECRETARY documented as of this encounter Plan of Treatment Not on file documented as of this encounter Procedures Procedure Name Priority Date/Time Associated Diagnosis Comments EGFR Routine 03/18/2023 1:58 PM ATTENDANCE SECRETARY Type 2 diabetes mellitus with hyperglycemia, without long-term current use of insulin (CMS/HCC) (HCC) Hypertension associated with diabetes (HCC) ALBUMIN CREATININE RATIO, URINE Routine 03/18/2023 1:58 PM ATTENDANCE SECRETARY Type 2 diabetes mellitus with hyperglycemia, without long-term current use of insulin (CMS/HCC) (HCC) HEMOGLOBIN A1C Routine 03/18/2023 1:58 PM ATTENDANCE SECRETARY Type 2 diabetes mellitus with hyperglycemia, without long-term current use of insulin (CMS/HCC) (HCC) LIPID PANEL Routine 03/18/2023 1:58 PM ATTENDANCE SECRETARY Type 2 diabetes mellitus with hyperglycemia, without long-term current use of insulin (CMS/HCC) (HCC) Hypertension associated with diabetes (HCC) COMPREHENSIVE METABOLIC PANEL Routine 03/18/2023 1:58 PM ATTENDANCE SECRETARY Type 2 diabetes mellitus with hyperglycemia, without long-term current use of insulin (CMS/HCC) (HCC) Hypertension associated with diabetes (HCC) documented in this encounter Results * eGFR (03/18/2023 1:58 PM ATTENDANCE SECRETARY) [facility] Signature eGFR 59 mL/min/1. 73 m2 [...] last reviewed 2021. Blood 03/18/2023 1:58 PM ATTENDANCE SECRETARY 03/18/2023 3:53 PM ATTENDANCE SECRETARY us Jocelynn Coy DO LAB BLOOD ORDERABLES Final Result [facility] (ADDY) 1 [facility] Department [place] [address] * Comprehensive metabolic panel (03/18/2023 1:58 PM ATTENDANCE SECRETARY) Sodium 137 135 - 145 mmol/L [facility] (JANE) Potassium, pl 4.2 3.3 - 4.9 mmol/L [facility] (JANE) Chloride 102 97 - 110 mmol/L [facility] (JANE) CO2 26 22 - 32 mmol/L [facility] ([place]ANE) Anion gap 10 2 - 15 mmol/L [facility] ([place]) BUN 19 6 - 25 mg/dL [facility] ([place]ANE) Creatinine 0.96 0.60 - 1.10 mg/dL [facility] ([place]ANE) Glucose 107 70 - 199 mg/dL [facility] ([place]ANE) Comment: Interpretive Data Fasting glucose [...] [facility] ([place]ANE) Blood 03/18/2023 1:58 PM ATTENDANCE SECRETARY 03/18/2023 3:53 PM ATTENDANCE SECRETARY us Jocelynn Coy DO LAB BLOOD ORDERABLES Final Result Performing Organization Address City/[facility]/ZIP Co de Phone Number [facility] (JANE) 1 [facility] [place] [address] * (ABNORMAL) Hemoglobin A1c (03/18/2023 1:58 PM ATTENDANCE SECRETARY) Hgb A1C 6.7(H) 4.0 - 5.6 % [facility] (JANE) Estimated Average Glucose 146 mg/dL [facility] (JANE) Comment: The ADA recommends reporting an estimated Average Glucose (eAG) with all Hemoglobin A1c results using the equation derived from a study of 507 normal and diabetic adults. ??Minority populations were underrepresented and children were not included. ?? (Diabetes Care 31:6502-0969, 2008). ??The eAG is not equivalent to a fasting glucose. Blood 03/18/2023 1:58 PM ATTENDANCE SECRETARY 03/18/2023 3:53 PM ATTENDANCE SECRETARY us Jocelynn Coy DO LAB BLOOD ORDERABLES Final Result Performing Organization Address City/[facility]/ZIP Co de Phone Number [facility] (JANE) 1 [facility] [place] [address] * Albumin Creatinine Ratio, Urine (03/18/2023 1:58 PM ATTENDANCE SECRETARY) Albumin Ur 47.4 mg/L [facility] (JANE) Comment: Interpretive Data No reference range established. Current interpretive data was last revised 2018. Testing performed by: [facility], [address] [place] [address]., [id number] Creatinine Ur 383.9 mg/dL JOSE MARCELINO (JANE) Comment: Interpretive Data No reference range established. Current interpretive data was last revised 2018. Testing performed by: [facility], [address] [place] [address]., [id number] Albumin Creatinine Ratio, Ur 12 1 - 29 mg/g [facility] MARCELINO (JANE) Comment:Testing performed by : [facility], [address] [place] [address]., [id number] Urine 03/18/2023 1:58 PM ATTENDANCE SECRETARY 03/19/2023 9:36 AM ATTENDANCE SECRETARY Jocelynn Coy DO LAB URINE ORDERABLES Final Result [facility] MARCELINO (JANE) 1 [facility] Department [place] [address] * Lipid panel (03/18/2023 1:58 PM ATTENDANCE SECRETARY) Cholesterol 167 30 - 199 mg/dL JOSE [...] YUKI MARCELINO (JANE) Blood 03/18/2023 1:58 PM ATTENDANCE SECRETARY 03/18/2023 3:53 PM ATTENDANCE SECRETARY us Jocelynn oCy DO LAB BLOOD ORDERABLES Final Result [facility] MARCELINO (JANE) 1 [facility] Department [place] [address] documented in this encounter Visit Diagnoses Diagnosis Type 2 diabetes mellitus with hyperglycemia, without long-term current use of insulin (HCC) Hypertension associated with diabetes (HCC) Unspecified essential hypertension documented in this encounter Care Teams Consumer Affairs Specialist Relationship Specialty Start Date End Date Jocelynn Coy DO PCP - General Family Medicine 06/10/17 09/02/23 Brian Madera MD [address] [facility] [address] [place] [address] Consulting Physician Neurology 04/02/22 documented as of this encounter
--- OUTSIDE RECORDS SUMMARY | 2024-03-31 16:36 | XMS_ITS | Encounter Summary ---
Author Organization [facility] Healthcare Address [address] [place] [address] Care Team Providers Care Artists' Model Name Role Phone Jocelynn Coy DO Primary Care Provider [phone]- [phone] Brian Madera MD Unavailable [phone] Reason for Visit * Reason Onset Date Comments Additional Services Or Orders 06/12/2023 Call Back 06/12/2023 Encounter Details Date Type Department Care Team (Late st Contact Info) Description 06/12/2023 Telephone [facility] Medical Group Primary Care at [address] [place] [address] Jocelynn Coy DO [address] [place] [id number] Additional Services Or Orders; Call Back Social [...] on file Legal Sex Female 8:45 PM AIRWAYS OPERATIONS SPECIALIST Gender Identity Female 04/25/2021 2:46 PM AIRWAYS OPERATIONS SPECIALIST Sexual Orientation Straight 04/25/2021 2: 46 PM AIRWAYS OPERATIONS SPECIALIST documented as of this encounter Miscellaneous Notes * Telephone Encounter - Yamilex Johnson MA - 06/13/2023 10:26 AM CST Toyin is aware, states she will take Pt to ER when she gets off AYS OPERATIONS SPECIALIST * Telephone Encounter - Hernesto Mccrary - 06/13/2023 9:07 AM CST Medical Question/Miscellaneous Caller???s Concern: Patient's daughter returned missed call regarding patient symptoms Advised per chart notes. She stated stated understanding and [facility] Requesting call back Does message need to be routed? Yes-Action Needed AYS OPERATIONS SPECIALIST * Telephone Encounter - Delphine Key [...] Toyin calls back please relay message above. AYS OPERATIONS SPECIALIST * Telephone Encounter - Gabrielle Rivera MA - 06/12/2023 2:18 PM CST Additional Services or Orders Type of Service Requested:Labs Reason for Request (e.g. condition/symptom, date of COVID exposure if applicable): Daughter Toyin verified on HIPAA states she spoke with [...] message need to be routed? Yes-Action Needed AYS OPERATIONS SPECIALIST documented in this encounter Plan of Treatment Not on file documented as of this encounter Visit Diagnoses Not on filedocumented in this encounter Additional Health Concerns Infection Onset Date Last Indicated Resolved Time COVID: Recovered Comment:Added based on recent COVID infection. 05/01/2023 05/03/2023 07/30/2023 3:06 AM C DT documented as of this encounter Care Teams Artists' Model Relationship Specialty Start Date End Date Jocelynn Coy DO PCP - General Family Medicine 06/10/17 09/02/23 Brian Madera MD [address] [place] [address] [address] [place] [address] Consulting Physician Neurology 04/02/22 documented as of this encounter
--- OUTSIDE RECORDS SUMMARY | 2024-03-31 16:36 | XMS_ITS | Encounter Summary ---
Author Organization [facility] Healthcare Address [address] [place] [address] Care Team Providers Care Steam Power Plant Operator Name Role Phone Jocelynn Coy Primary Care Provider [phone]- [phone] Brian Madera MD Unavailable [phone] Reason for Visit * Reason Comments Pain Pt states she fell o ut of bed about a month ago. Right side pain x 2 days on the same side when she fell out of bed. Daughter is with her and would like her checked out. Encounter Details Date Type Department Care Team (Late st Contact Info) Description 07/03/2023 7:00 PM CDT Office Visit [facility] Medical Group Convenient Care at [address] [place] [address] Kristen Vilchis, BRAND SALES CONSULTANT [address] [facility] [address] [place] [id number] Muscle strain (Primary Dx) Social History Tobacco [...] file Legal Sex Female 8:45 PM LABOR CUSTODIAN Gender Identity Female 04/25/2021 2:46 PM LABOR CUSTODIAN Sexual Orientation Straight 04/25/2021 2: 46 PM LABOR CUSTODIAN documented as of this encounter Last Filed [...] meet your needs. Thank you for choosing [facility]! It was my pleasure to see [...] documented as of this encounter Care Teams Steam Power Plant Operator Relationship Specialty Start Date End Date Jocelynn Coy DO PCP - General Family Medicine 06/10/17 09/02/23 Brian Madera MD [address] [facility] [place] [address] Consulting Physician Neurology 04/02/22 documented as of this encounter
--- OUTSIDE RECORDS SUMMARY | 2024-03-31 16:36 | XMS_ITS | Encounter Summary ---
Author Organization [facility] Address [address] [place] [address] Care Team Providers Care Product Manager Name Role Phone Jocelynn Coy Primary Care Provider [phone]- [phone] Brian Madera MD Unavailable [phone] Reason for Visit * Reason Onset Date Comments ACO Quality Outreach 09/17/2022 Dm lab Encounter Details Date Type Department Care Team (Late st Contact Info) Description 09/17/2022 Telephone [facility] Accountable Care Organization [address] [place] [address] [address] [place] [address] [address] ACO Quality Outreach (Dm lab ) Social [...] on file Legal Sex Female 8:45 PM OUTSIDE UPHOLSTERER Gender Identity Female 04/25/2021 2:46 PM OUTSIDE UPHOLSTERER Sexual Orientation Straight 04/25/2021 2: 46 PM OUTSIDE UPHOLSTERER documented as of this encounter Miscellaneous Notes * Telephone Encounter - Tatum Caldwell - 09/17/2022 8:11 AM CDT Patient has been identified by their insurance plan to have a KED gap in care. Chart has been scrubbed and Diabetic labs have been ordered and pended. Ordered labs have been added to appointment note.. Tatum Caldwell Patient Outreach Project Architect [facility]- ACO [phone] documented in this encounter Plan of Treatment Not on file documented as of this encounter Visit Diagnoses Not on filedocumented in this encounter Care Teams Product Manager Relationship Specialty Start Date End Date Jocelynn Coy DO PCP - General Family Medicine 06/10/17 09/02/23 Brian Madera MD [address] [facility] [place] [address] Consulting Physician Neurology 04/02/22 documented as of this encounter
--- OUTSIDE RECORDS SUMMARY | 2024-03-31 16:36 | XMS_ITS | Encounter Summary ---
Author Organization [facility] Healthcare Address [address] [place] [address] Care Team Providers Care Computer Recycling Worker Name Role Phone Jocelynn Coy DO Primary Care Provider [phone]- [phone] Brian Madera MD Unavailable [phone] Reason for Visit * Reason Comments Hospital Follow Up Hallucinations/COVID Encounter Details Date Type Department Care Team (Late st Contact Info) Description 04/25/2023 2:15 PM SUPERVISOR SILVERING DEPARTMENT Telemedicine [facility] Medical Group Primary Care at [address] [place] [address] Jocelynn Coy DO [address] [facility] [place], [place] [id number] COVID-19 (Primary Dx); Generalized anxiety disorder; Hallucinations [...] file Legal Sex Female 8:45 PM SUPERVISOR SILVERING DEPARTMENT Gender Identity Female 04/25/2021 2:46 PM SUPERVISOR SILVERING DEPARTMENT Sexual Orientation Straight 04/25/2021 2: 46 PM SUPERVISOR SILVERING DEPARTMENT documented as of this encounter Last Filed Vital Signs Vital Sign Reading Time Taken Comments Blood Pressure - - Pulse - - Temperature - - Respiratory Rate - - Oxygen Saturation - - Inhaled Oxygen Concentration - - Weight 61.7 kg (136 lb) 04/25/2023 2:17 PM SUPERVISOR SILVERING DEPARTMENT Height 149.9 cm (4' 11 ) 04/25/2023 2:17 PM SUPERVISOR SILVERING DEPARTMENT Body Mass Index 27.47 04/25/2023 2:17 PM SUPERVISOR SILVERING DEPARTMENT documented in this encounter Patient Instructions * Patient Instructions* Jocelynn Coy DO - 04/25/2023 2:15 PM SUPERVISOR SILVERING DEPARTMENT Health Maintenance Topics with due status: Overdue Topic Date Due Dilated Eye Exam Never done Zoster Vaccine Never done Foot Exam 01/09/2022 Covid-19 Vaccine 12/14/2022 Thanks for coming in today! My medical information officer and I are thankful you have trusted us with your care, and hope that you received EXCELLENT care today! Although some conditions may not allow immediate improvement, I aim to always make you feel a little better leaving, than when you came in. [place] not hesitate to call, if you have any questions or concerns, at [phone]. You may receive a phone call, text, MYCHART message, or e-mail asking you to take a survey about your care today. We would love to hear your feedback on how EXCELLENT your care was today! Wishing you better health, always! Dr. Jocelynn Coy RVISOR SILVERING DEPARTMENT * Attachments The following attachments cannot be sent through Care Everywhere. * Hallucinations (Reinforcing Steel Erector) ([place]) * Prevent Infections (Reinforcing Steel Erector) ([place]) documented in this encounter Ordered Prescriptions Prescription [...] patient was located at home in the [facility]. The patient visit started at 1427 hrs [...] This note is dictated and transcribed by [employer]. Specialty Manufacturing Supervisor variances may occur. Despite proofreading, typographical errors may occur. Jocelynn Coy DO RVISOR SILVERING DEPARTMENT documented in this encounter Miscellaneous Notes * Assessment & Plan Note - Jocelynn Coy DO - 04/25/2023 2:42 PM SUPERVISOR SILVERING DEPARTMENT Associated Problem(s): Hallucinations New start on Seroquel, take as directed. Re-evaluate need of continued use of medication at next appointment. RVISOR SILVERING DEPARTMENT * Assessment & Plan Note - Jocelynn Coy DO - 04/25/2023 2:41 PM SUPERVISOR SILVERING DEPARTMENT Associated Problem(s): Generalized anxiety disorder Will add Seroquel to daily regiment. Continue lorazepam as needed. RVISOR SILVERING DEPARTMENT documented in this encounter Plan of Treatment Not on file documented as of this encounter Visit Diagnoses Diagnosis COVID-19- Primary Generalized anxiety disorder Hallucinations documented in this encounter Additional Health Concerns Infection Onset Date Last Indicated Resolved Time COVID19 04/21/2023 04/21/2023 05/01/2023 3:05 AM SUPERVISOR SILVERING DEPARTMENT documented as of this encounter Care Teams Computer Recycling Worker Relationship Specialty Start Date End Date Jocelynn Coy DO PCP - General Family Medicine 06/10/17 09/02/23 Brian Madera MD [address] [facility] [place] [address] Consulting Physician Neurology 04/02/22 documented as of this encounter
--- OUTSIDE RECORDS SUMMARY | 2024-03-31 16:36 | XMS_ITS | Encounter Summary ---
Author Organization [facility] Healthcare Address [address] [place] [address] Care Team Providers Care Electron Tube Assembler Name Role Phone Jocelynn Coy DO Primary Care Provider +1- [phone] Brian Madera MD Unavailable [phone] Reason for Visit * Reason Onset Date Comments Referral Request 07/11/2023 Encounter Details Date Type Department Care Team (Late st Contact Info) Description 07/11/2023 Telephone [facility] Primary Care at [address] [place] [address] Jocelynn Coy DO [address] [facility] [address] M[address]INI [address] [place] [address] Referral Request Social History Tobacco Use [...] on file Legal Sex Female 8:45 PM PRESS SERVICE READER Gender Identity Female 04/25/2021 2:46 PM PRESS SERVICE READER Sexual Orientation Straight 04/25/2021 2: 46 PM PRESS SERVICE READER documented as of this encounter Miscellaneous Notes * Telephone Encounter - Ivette Davenport - 07/11/2023 9:49 AM CDT Referral placed in Essence and faxed to the number provided. * Telephone Encounter - Kathia Tellez - 07/11/2023 9:14 AM CDT Referral Provider Name (if patient is seeing a nurse practitioner or physician real estate administrative assistant, list the SURVIVAL SPECIALIST/PA, but also their collaborating doctor): Brian Madera M.D. 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
--- OUTSIDE RECORDS SUMMARY | 2024-03-31 16:36 | XMS_ITS | Encounter Summary ---
Author Organization [facility] Healthcare Address [address] [place] [address] Care Team Providers Care Cleaning Specialist Name Role Phone Jocelynn Coy Primary Care Provider [phone]- [phone] Brian Madera MD Unavailable [phone] Reason for Visit * Reason Comments Successful Phone Call Encounter Details Date Type Department Care Team (Late st Contact Info) Description 04/23/2023 [place] ED Outreach [facility] Accountable Care Organization [address] [place] [address] Mikala Sheth MA [address] [place] [address] DR M[address]IN[address] [place] [address] Social History Tobacco Use Types Packs/Day Years [...] on file Legal Sex Female 8:45 PM PRISONER CLASSIFICATION INTERVIEWER Gender Identity Female 04/25/2021 2:46 PM PRISONER CLASSIFICATION INTERVIEWER Sexual Orientation Straight 04/25/2021 2: 46 PM PRISONER CLASSIFICATION INTERVIEWER documented as of this encounter Progress Notes * Mikala Sheth MA - 04/23/2023 9:07 AM CST Care Electrogalvanizing Machine Operator contacted patient's daughter, Toyin, regarding patient's recent ED visit at [facility] on 04/21/2023 for hallucinations; COVID. Status of [...] mg oral nightly. Toyin states she did last picker this medication for patient from the pharmacy [...] Thank you, Mikala Sheth CMA ACO Care Electrogalvanizing Machine Operator [facility] Medical Group [phone] ONER CLASSIFICATION INTERVIEWER documented in this encounter Plan of Treatment Not on file documented as of this encounter Visit Diagnoses Not on filedocumented in this encounter Additional Health Concerns Infection Onset Date Last Indicated Resolved Time COVID19 04/21/2023 04/21/2023 05/01/2023 3:05 AM PRISONER CLASSIFICATION INTERVIEWER documented as of this encounter Care Teams Cleaning Specialist Relationship Specialty Start Date End Date Jocelynn Coy DO PCP - General Family Medicine 06/10/17 09/02/23 Brian Madera MD [address] [facility] [address] MANCINI [address] [place] [address] [address] Consulting Physician Neurology 04/02/22 documented as of this encounter
--- OUTSIDE RECORDS SUMMARY | 2024-03-31 16:36 | XMS_ITS | Encounter Summary ---
Author Organization [facility] Medical Group Address [address] [facility] [place] [address] Care Team Providers Care Tomb Maker Helper Name Role Phone Jocelynn Coy Primary Care Provider [phone]- [phone] Brian Madera MD Unavailable [phone] Reason for Visit * Reason Onset Date Comments ACO Quality Outreach 07/12/2022 Encounter Details Date Type Department Care Team (Late st Contact Info) Description 07/12/2022 Telephone [facility] Primary Care at [address] [place] [address] Tatum Caldwell [address] [place] [address] [address] [facility] [address] [place] [address] ACO Quality Outreach Social History Tobacco Use [...] on file Legal Sex Female 8:45 PM FOUR CORNER STAYER MACHINE OPERATOR Gender Identity Female 04/25/2021 2:46 PM FOUR CORNER STAYER MACHINE OPERATOR Sexual Orientation Straight 04/25/2021 2: 46 PM FOUR CORNER STAYER MACHINE OPERATOR documented as of this encounter Miscellaneous Notes * Telephone Encounter - Tatum Caldwell - 07/12/2022 3:11 PM CDT Patient has been identified by their insurance plan to have a KED gap in care. Chart has been scrubbed and orders placed . Tatum Caldwell Patient Outreach Publicity Director [facility]- ACO [phone] documented in this encounter Plan of Treatment Not on file documented as of this encounter Visit Diagnoses Diagnosis Type 2 diabetes mellitus with hyperglycemia, without long-term current use of insulin (HCC)- Primary documented in this encounter Care Teams Tomb Maker Helper Relationship Specialty Start Date End Date Jocelynn Coy DO PCP - General Family Medicine 06/10/17 09/02/23 Brian Madera MD [address] [facility] [address] [facility] [place] [address] Consulting Physician Neurology 04/02/22 documented as of this encounter
--- OUTSIDE RECORDS SUMMARY | 2024-03-31 16:36 | XMS_ITS | Encounter Summary ---
Author Organization [facility] Medical Group Address [address] [facility] [address] [place] [address] Care Team Providers Care Suspect Artist Name Role Phone Jocelynn Coy DO Primary Care Provider [phone]- [phone] Brian Madera MD Unavailable [phone] Reason for Visit * Reason Comments Hypertension Hyperlipidemia Diabetes Encounter Details Date Type Department Care Team (Late st Contact Info) Description 09/20/2022 4:15 PM CDT Office Visit [facility] Primary Care at [address] [place] [address] Jocelynn Coy DO [address] [facility] [address] [address] Hypertension associated with diabetes (HCC) (Primary Dx); [...] on file Legal Sex Female 8:45 PM TONE REGULATOR Gender Identity Female 04/25/2021 2:46 PM TONE REGULATOR Sexual Orientation Straight 04/25/2021 2: 46 PM TONE REGULATOR documented as of this encounter Last Filed [...] not included. Patient Education DASH Eating Plan SILICA FILTER OPERATOR: The DASH (Dietary Approaches to Stop Hypertension) [...] seasonings to add flavor. Try lemon or muscogee juice or vinegarto add a tart flavor. [...] more information: National Heart, Lung and [facility] [address] [address] [place] [address] Phone: Web Address: http://www.nhlbi.nih.gov/health/infoctr/index.htm ?? Copyright [employer] 2021 Information is for End User's use only and may not be sold, redistributed or otherwise used for commercial purposes. All illustrations and images included in CareNotes?? are the copyrighted property of [employer]. or [employer] The above information is an educational diagnostician only. It is not intended as medical [...] 09/04/2022 Thanks for coming in today! My medical library assistant and I are thankful you have trusted us with your care, and hope that you received EXCELLENT care today! Although some conditions may not allow immediate improvement, I aim to always make you feel a little better leaving, than when you came in. [place] not hesitate to call, if you have any questions or concerns, at [phone]. You may receive a phone call, text, [...] for this visit: Hypertension associated with diabetes ([facility]) (Primary) Assessment & Plan: Blood pressure at [...] diabetes mellitus ([facility]) Assessment & Plan: LDL at goal of less than 100, continue current prescription medications, atorvastatin. Orders: - atorvastatin (LIPITOR) 20 mg tablet; Take 1 tablet (20 mg total) by mouth nightly - Comprehensive metabolic panel; Future - Lipid panel; Future Type 2 diabetes mellitus with hyperglycemia, without long-term current use of insulin ([facility]) (HCC) Assessment & Plan: A1c at goal [...] This note is dictated and transcribed by [employer]. Swing Driver variances may occur. Despite proofreading, typographical errors [...] documented as of this encounter Care Teams Suspect Artist Relationship Specialty Start Date End Date Jocelynn Coy DO PCP - General Family Medicine 06/10/17 09/02/23 Brian Madera MD [address] [facility] [address] MANCIN[address] [facility] [place] [address] Consulting Physician Neurology 04/02/22 documented as of this encounter
--- OUTSIDE RECORDS SUMMARY | 2024-03-31 16:36 | XMS_ITS | Encounter Summary ---
Author Organization [facility] Healthcare Address [address] [place] [address] Care Team Providers Care Director Global Name Role Phone Jocelynn Coy Primary Care Provider [phone]- [phone] Brian Madera MD Unavailable [phone] Reason for Visit * Reason Comments Successful Phone Call Encounter Details Date Type Department Care Team (Late st Contact Info) Description 06/14/2023 [place] ED Outreach [facility] Accountable Care Organization [address] [place] [address] Romi Lance MA [address] [place] [address] DR M[address]IN[address] [place] [address] Social History Tobacco Use Types Packs/Day Years [...] on file Legal Sex Female 8:45 PM AIR TRAFFIC CONTROLLER CENTER Gender Identity Female 04/25/2021 2:46 PM AIR TRAFFIC CONTROLLER CENTER Sexual Orientation Straight 04/25/2021 2: 46 PM AIR TRAFFIC CONTROLLER CENTER documented as of this encounter Progress Notes * Romi Lance MA - 06/14/2023 10:28 AM CST Care Senior Marketing Analyst contacted patient regarding recent ED visit at [facility] on 06/13/23 for Hallucinations . Status [...] contact information for future needs. JENNY Root [facility] [phone] TRAFFIC CONTROLLER CENTER documented in this encounter Plan of Treatment Not on file documented as of this encounter Visit Diagnoses Not on filedocumented in this encounter Additional Health Concerns Infection Onset Date Last Indicated Resolved Time COVID: Recovered Comment:Added based on recent COVID infection. 05/01/2023 05/03/2023 07/30/2023 3:06 AM C DT documented as of this encounter Care Teams Director Global Relationship Specialty Start Date End Date Jocelynn Coy DO PCP - General Family Medicine 06/10/17 09/02/23 Brian Madera MD [address] [facility] [address] MANCINI [address] [place] [address] [address] Consulting Physician Neurology 04/02/22 documented as of this encounter
--- OUTSIDE RECORDS SUMMARY | 2024-03-31 16:36 | XMS_ITS | Encounter Summary ---
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 [address] [place] [address] Kate Diaz NP [address] [facility] [address] [place] [address] Late onset Alzheimer's dementia without behavioral disturbance [...] on file Legal Sex Female 8:45 PM ENAMEL BURNER Gender Identity Female 04/25/2021 2:46 PM ENAMEL BURNER Sexual Orientation Straight 04/25/2021 2: 46 PM ENAMEL BURNER documented as of this encounter Last Filed [...] this encounter Progress Notes * Kate Diaz, ASBESTOS REMOVER - 08/10/2022 11:30 AM CDT Subjective/Objective Patient [...] of limited. [place] cognitive assessment today showed [place] cognitive assessment 15/30 (visuospatial/executive -4, naming -1, [...] Primary documented in this encounter Care Teams Computer Discovery Teacher Relationship Specialty Start Date End Date Jocelynn Coy DO PCP - General Family Medicine 06/10/17 09/02/23 Brian Madera MD [address] [place] [address] [place] [address] Consulting Physician Neurology 04/02/22 documented as of this encounter
--- OUTSIDE RECORDS SUMMARY | 2024-03-31 16:36 | XMS_ITS | Encounter Summary ---
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) Jocelynn Coy DO Phone: tel: fax: Brian Madera MD [address] [place] [address] [address] [place] [address] Phone: tel: fax: Referral ID Status Reason Start Date Expiration Date V isits Requested Visits Authorized [id number] Closed Specialty Services Required 07/12/2023 08/13/2023 1 1 Encounter Details Date Type Department Care Team (Late st Contact Info) Description 07/12/2023 10:00 AM CDT Office Visit [facility] [address] [place] [address] Brian Madera MD [address] [place] [address] [address] [facility] [place] [address] 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 11/17/2021 [place] cognitive assessment 15/30 (visuospatial/executive -4, naming -1, attention -4, language -2, delayed recall -5) 4. 08/10/2022- [place] cognitive assessment today showed [place] cognitive assessment 15/30 (visuospatial/executive -4, naming -1, attention -4, language - 2, delayed recall -5, orientation -1). 5. 03/18/2023 [place] cognitive assessment today showed [place] cognitive assessment 14/30 (visuospatial/executive -4, naming -2, [...] documented as of this encounter Care Teams Laboratory Immunologist Relationship Specialty Start Date End Date Jocelynn Coy DO PCP - General Family Medicine 06/10/17 09/02/23 Brian Madera MD [address] [place] [address] [place] [address] Consulting Physician Neurology 04/02/22 documented as of this encounter
--- OUTSIDE RECORDS SUMMARY | 2024-03-31 16:36 | XMS_ITS | Encounter Summary ---
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) Jocelynn Coy DO Phone: tel: fax: Brian Madera MD [address] [place] [address] [place] [address] Phone: tel: fax: Referral ID Status Reason Start Date Expiration Date V isits Requested Visits Authorized [id number] Closed Specialty Services Required 09/04/2021 04/14/2023 12 12 Encounter Details Date Type Department Care Team (Late st Contact Info) Description 02/08/2022 11:45 AM CDT Office Visit [facility] [address] [facility] [address] [place] [address] Brian Madera MD [address] [place] [address] [address] [place] [address] Late onset Alzheimer's dementia without behavioral disturbance [...] on file Legal Sex Female 8:45 PM DENTAL INSURANCE BILLER Gender Identity Female 04/25/2021 2:46 PM DENTAL INSURANCE BILLER Sexual Orientation Straight 04/25/2021 2: 46 PM DENTAL INSURANCE BILLER documented as of this encounter Last Filed [...] dementia. History is kind of limited. 11/17/2021 [place] cognitive assessment 15/30 (visuospatial/executive -4, naming -1, [...] documented as of this encounter Care Teams Retail Shift Manager Relationship Specialty Start Date End Date Jocelynn Coy DO PCP - General Family Medicine 06/10/17 09/02/23 documented as of this encounter
--- OUTSIDE RECORDS SUMMARY | 2024-03-31 16:36 | XMS_ITS | Encounter Summary ---
Author Organization [facility] Healthcare Address [address] [place] [address] Care Team Providers Care Tumbling And Rolling Supervisor Name Role Phone Jocelynn Coy Primary Care Provider +1- [phone] Brian Madera MD Unavailable [phone] Encounter Details Date Type Department Care Team (Late st Contact Info) Description 04/02/2022 3:45 PM SAMPLE PREPARATION SUPERVISOR [address] [address] Hypertension associated with diabetes (HCC); Hyperlipidemia associated [...] on file Legal Sex Female 8:45 PM SAMPLE PREPARATION SUPERVISOR Gender Identity Female 04/25/2021 2:46 PM SAMPLE PREPARATION SUPERVISOR Sexual Orientation Straight 04/25/2021 2: 46 PM SAMPLE PREPARATION SUPERVISOR documented as of this encounter Plan of Treatment Not on file documented as of this encounter Procedures Procedure Name Priority Date/Time Associated Diagnosis Comments EGFR Routine 04/02/2022 3:52 PM SAMPLE PREPARATION SUPERVISOR Hypertension associated with diabetes (HCC) Hyperlipidemia associated with type 2 diabetes mellitus (HCC) HEMOGLOBIN A1C Routine 04/02/2022 3:52 PM SAMPLE PREPARATION SUPERVISOR Type 2 diabetes mellitus with hyperglycemia, without long-term current use of insulin (CMS/HCC) (HCC) LIPID PANEL Routine 04/02/2022 3:52 PM SAMPLE PREPARATION SUPERVISOR Hypertension associated with diabetes (HCC) Hyperlipidemia associated with type 2 diabetes mellitus (HCC) COMPREHENSIVE METABOLIC PANEL Routine 04/02/2022 3:52 PM SAMPLE PREPARATION SUPERVISOR Hypertension associated with diabetes (HCC) Hyperlipidemia associated with type 2 diabetes mellitus (HCC) documented in this encounter Results * eGFR (04/02/2022 3:52 PM SAMPLE PREPARATION SUPERVISOR) eGFR 88 mL/min/1. 73 m2 JOSE MARCELINO [...] last reviewed 2021. Blood 04/02/2022 3:52 PM SAMPLE PREPARATION SUPERVISOR 04/02/2022 4:58 PM SAMPLE PREPARATION SUPERVISOR us Jocelynn Coy DO LAB BLOOD ORDERABLES Final Result [facility] ([place]) [address] [facility] Department [place] [address] * Comprehensive metabolic panel (04/02/2022 3:52 PM SAMPLE PREPARATION SUPERVISOR) Sodium 137 135 - 145 mmol/L CERNER [...] [facility] ([place]) Blood 04/02/2022 3:52 PM SAMPLE PREPARATION SUPERVISOR 04/02/2022 4:58 PM SAMPLE PREPARATION SUPERVISOR Jocelynn Coy DO LAB BLOOD ORDERABLES Final Result Performing Organization Address [facility] Co de Phone Number [facility] [address] [facility] [place] [address] * (ABNORMAL) Hemoglobin A1c (04/02/2022 3:52 PM SAMPLE PREPARATION SUPERVISOR) Hgb A1C 7.3(H) 4.0 - 5.6 % JOSE MARCELINO ([place]) Estimated Average Glucose 163 mg/dL JOSE MARCELINO ([place]) Comment: The ADA recommends reporting an estimated Average Glucose (eAG) with all Hemoglobin A1c results using the equation derived from a study of 507 normal and diabetic adults. ??Minority populations were underrepresented and children were not included. ?? (Diabetes Care 31:1588-8953, 2008). ??The eAG is not equivalent to a fasting glucose. Blood 04/02/2022 3:52 PM SAMPLE PREPARATION SUPERVISOR 04/02/2022 4:58 PM SAMPLE PREPARATION SUPERVISOR Jocelynn Coy DO LAB BLOOD ORDERABLES Final Result Performing Organization Address [facility] Co de Phone Number [facility] ([place]) [address] [facility] [place] [address] * Lipid panel (04/02/2022 3:52 PM SAMPLE PREPARATION SUPERVISOR) Cholesterol 145 30 - 199 mg/dL JOSE [...] revised on 2017. HDL 76 >=40 mg/dL OJSE Clarke ([place]) Comment: Interpretive Data Ages < [...] YUKI MARCELINO ([place]) Blood 04/02/2022 3:52 PM SAMPLE PREPARATION SUPERVISOR 04/02/2022 4:58 PM SAMPLE PREPARATION SUPERVISOR us Jocelynn Coy DO LAB BLOOD ORDERABLES Final Result JOSE MARCELINO ([place]) [address] [facility] Department [place] [address] documented in this encounter Visit Diagnoses Diagnosis Hypertension associated with diabetes (HCC) Unspecified essential hypertension Hyperlipidemia associated with type 2 diabetes mellitus (HCC) Type 2 diabetes mellitus with hyperglycemia, without long-term current use of insulin (HCC) documented in this encounter Care Teams Tumbling And Rolling Supervisor Relationship Specialty Start Date End Date Jocelynn Coy DO Abdulaziz PCP - General Family Medicine 06/10/17 09/02/23 Brian Madera MD [address] [place] [address] [address] [facility] [place] [address] Consulting Physician Neurology 04/02/22 documented as of this encounter
--- OUTSIDE RECORDS SUMMARY | 2024-03-31 16:36 | XMS_ITS | Encounter Summary ---
Author Organization [facility] Healthcare Address [address] [place] [address] Care Team Providers Care Motorboat Operator Name Role Phone Brian Madera MD Unavailable [phone] Carmelita Olivera MD Primary Care Provide r Encounter Details Date Type Department Care Team (Late st Contact Info) Description 09/03/2023 9:45 AM CDT Lab [address] Type 2 diabetes mellitus with hyperglycemia, without long-term current use of insulin ([facility]) ([facility]) Social History Tobacco Use Types [...] on file Legal Sex Female 8:45 PM TOURIST INFORMATION OFFICER Gender Identity Female 04/25/2021 2:46 PM TOURIST INFORMATION OFFICER Sexual Orientation Straight 04/25/2021 2: 46 PM TOURIST INFORMATION OFFICER documented as of this encounter Plan of Treatment Not on file documented as of this encounter Procedures Procedure Name Priority Date/Time Associated Diagnosis Comments HEMOGLOBIN A1C Routine 09/03/2023 9:42 AM CDT Type 2 diabetes mellitus with hyperglycemia, without long-term current use of insulin ([facility]/HCC) (HCC) documented in this encounter Results * [...] children were not included. ?? (Diabetes Care 31:5721-4338, 2007). ??The eAG is not equivalent to a fasting glucose. Blood 09/03/2023 9:42 AM CDT 09/03/2023 10:23 AM CDT Carmelita Olivera MD LAB BLOOD ORDERABLES Final Result JOSE MARCELINO ([place]) 1 [facility] Department [place] [address] documented in this encounter Visit Diagnoses Diagnosis Type 2 diabetes mellitus with hyperglycemia, without long-term current use of insulin ([facility]) documented in this encounter Care Teams Motorboat Operator Relationship Specialty Start Date End Date Carmelita Olivera MD [address] [facility] [address] [place] [address] PCP - General Family Medicine 09/03/23 Brian Madera MD [address] [facility] [address] [place] [address] Consulting Physician Neurology 04/02/22 documented as of this encounter
--- OUTSIDE RECORDS SUMMARY | 2024-03-31 16:36 | XMS_ITS | Encounter Summary ---
Author Organization [facility] Healthcare Address [address] [place] [address] Care Team Providers Care Detective Private Eye Name Role Phone Brian Madera MD Unavailable [phone] Carmelita Olivera MD Primary Care Provide r Reason for Visit * Reason Comments Hypertension New Pt:here to Est. Care- Former Zbigniew Pt Hyperlipidemia Diabetes Anxiety Alzheimer's Disease Encounter Details Date Type Department Care Team (Late st Contact Info) Description 09/03/2023 9:00 AM CDT Office Visit [facility] Primary Care at [address] [address] Carmelita Olivera MD [address] [place] [address] Encounter to establish care (Primary Dx); [...] on file Legal Sex Female 8:45 PM VICE CHAIR Gender Identity Female 04/25/2021 2:46 PM VICE CHAIR Sexual Orientation Straight 04/25/2021 2: 46 PM VICE CHAIR documented as of this encounter Last Filed [...] MD - 09/03/2023 9:00 AM CDT My medical clerk and I are thankful you have trusted [...] use of insulin ([facility]/HCC) (HCC) Assessment & Plan: The patient was [...] of insulin ([facility]) The patient was counseled on a heart-healthy, [...] children were not included. ?? (Diabetes Care 31:3201-9303, 2008). ??The eAG is not equivalent to a fasting glucose. Blood 09/03/2023 9:42 AM CDT 09/03/2023 10:23 AM CDT Carmelita Olivera MD LAB BLOOD ORDERABLES Final Result JOSE MARCELINO ([place]) 1 [facility] [place] [address] * DIABETES EYE EXAM (05/21/2023) SCRIBED DIABETIC [...] (HCC) documented in this encounter Care Teams Detective Private Eye Relationship Specialty Start Date End Date Carmelita Olivera MD [address] [facility] [address] [place] [address] PCP - General Family Medicine 09/03/23 Brian Madera MD [address] [facility] [address] [place] [address] Consulting Physician Neurology 04/02/22 documented as of this encounter
--- OUTSIDE RECORDS SUMMARY | 2024-03-31 16:36 | XMS_ITS | Encounter Summary ---
Author Organization [facility] Healthcare Address [address] [place] [address] Care Team Providers Care Fitness Technician Name Role Phone Jocelynn Coy Primary Care Provider [phone] Brian Madera MD Unavailable [phone] Reason for Visit * Reason Comments Chart Review Nikky kesee Encounter Details Date Type Department Care Team (Late st Contact Info) Description 02/26/2023 ACO Quality [facility] Accountable Care Organization [address] [place] [id number] Jazzy Syed CMA [address] [place] [address] [address] [place] [address] Social History Tobacco Use Types Packs/Day Years [...] on file Legal Sex Female 8:45 PM AUTOMOBILE PAINTER Gender Identity Female 04/25/2021 2:46 PM AUTOMOBILE PAINTER Sexual Orientation Straight 04/25/2021 2: 46 PM AUTOMOBILE PAINTER documented as of this encounter Progress Notes * Jazzy Syed CMA - 02/26/2023 8:19 AM CST Patient has been identified by their insurance plan to have a eGFR gap in care. Chart has been scrubbed and Patient has an upcoming appointment on 03/05/2023 and gap(s) was added to appointment note. Current open gaps in care: eGFR Thank you, Jazzy Syed CMA [facility] ACO Care Senior Embedded Software Engineer [phone] MOBILE PAINTER documented in this encounter Plan of Treatment Not on file documented as of this encounter Visit Diagnoses Not on filedocumented in this encounter Care Teams Fitness Technician Relationship Specialty Start Date End Date Jocelynn Coy DO PCP - General Family Medicine 06/10/17 09/02/23 Brian Madera MD [address] [facility] [place] [address] Consulting Physician Neurology 04/02/22 documented as of this encounter
--- OUTSIDE RECORDS SUMMARY | 2024-03-31 16:36 | XMS_ITS | Encounter Summary ---
Author Organization [facility] Healthcare Address [address] [place] [address] Care Team Providers Care Community Health Program Representative Name Role Phone Jocelynn Coy Primary Care Provider [phone] Brian Madera MD Unavailable [phone] Reason for Visit * Reason Comments Confusion Encounter Details Date Type Department Care Team (Late st Contact Info) Description 04/21/2023 12:49 PM METAL WIRE COATING OPERATOR - 04/21/2023 7:29 PM METAL WIRE COATING OPERATOR Emergency [facility] Emergency Department [address] [place] [address] Gurmeet Church MD [address] [place] [address] [place] [address] Tiago Kerr MD [address] [place] [address] [address] [place] [address] Hallucinations (Primary Dx); COVID Discharge Disposition: Discharge [...] file Legal Sex Female 8:45 PM METAL WIRE COATING OPERATOR Gender Identity Female 04/25/2021 2:46 PM METAL WIRE COATING OPERATOR Sexual Orientation Straight 04/25/2021 2: 46 PM METAL WIRE COATING OPERATOR documented as of this encounter Last Filed Vital Signs Vital Sign Reading Time Taken Comments Blood Pressure 160/68 04/21/2023 6:15 PM METAL WIRE COATING OPERATOR Pulse 63 04/21/2023 4:15 PM METAL WIRE COATING OPERATOR Temperature 36.7 ??C (98.1 ??F) 04/21/2023 12:[address] Respiratory Rate 18 04/21/2023 6:15 PM METAL WIRE COATING OPERATOR Oxygen Saturation 97% 04/21/2023 5:30 PM METAL WIRE COATING OPERATOR Inhaled Oxygen Concentration - - Weight 61.2 kg (135 lb) 04/21/2023 12:46 PM METAL WIRE COATING OPERATOR Height 149.9 cm (4' 11 ) 04/21/2023 12:46 PM METAL WIRE COATING OPERATOR Body Mass Index 27.27 04/21/2023 12:46 PM METAL WIRE COATING OPERATOR documented in this encounter Discharge Instructions * Discharge Instructions* Tiago Kerr MD - 04/21/2023 7:02 PM METAL WIRE COATING OPERATOR Continue home medication , take Tylenol for body aches and fever. L WIRE COATING OPERATOR * Attachments The following attachments cannot be sent through Care Everywhere. * Coronavirus Disease 2019 (COVID-19)- Overview (Filipino) documented in this encounter Medications at Time [...] of insulin ([facility]) 1 Device daily 100 each 3 10/03/2020 sodium chloride (TRISTAN 128) 5 % ophthalmic solution Administer 1 drop into both eyes as needed 02/27/2023 amLODIPine (NORVASC) 10 mg tabletIndication s:Hypertension associated with diabetes (HCC) Take 1 tablet (10 mg total) by mouth nightly 90 tablet 3 09/20/2022 4 atorvastatin (LIPITOR) 20 mg tabletIndication s:Hyperlipidemia associated with type 2 diabetes mellitus ([facility]) Take 1 tablet (20 mg total) by mouth nightly 90 tablet 3 09/20/2022 4 lisinopriL (PRINIVIL,ZESTRI L) 2.5 mg tabletIndication s:Type 2 diabetes mellitus with hyperglycemia, without long-term current use of insulin ([facility]),Hypertensi on associated with diabetes ([facility]) Take 1 tablet (2.5 mg [...] of insulin ([facility]) Take 1 tablet (500 mg [...] use of insulin ([facility])([facility]) 10/03/2020 ??? Body mass index (BMI) of 25.0 to 25.9 in adult 09/03/2018 ??? Hypertension associated with diabetes ([facility]) 06/07/2017 ??? Hyperlipidemia associated with type 2 diabetes mellitus ([facility]) 06/07/2017 ??? Generalized anxiety disorder 06/07/2017 No [...] diagnoses: Hallucinations Gurmeet Church MD 04/21/23 1410 L WIRE COATING OPERATOR * Cat Boyce RN - 04/21/2023 12:44 PM CST Pt was dx with covid 5 days ago. Today daughter reports that pt is hallucinating and that she was very restless and agitated last night. L WIRE COATING OPERATOR documented in this encounter Miscellaneous Notes [...] few days. Tiago Kerr MD 04/21/23 190 L WIRE COATING OPERATOR * ED Procedure Note - Gurmeet Church MD - 04/21/2023 1:39 PM CSTAssociated Order(s): ECG 12 lead Procedure ECG 12 lead Date/Time: 04/21/2023 1:39 PM Performed by: Gurmeet Church MD Authorized by: Gurmeet Church MD Rate: ECG rate: 61 ECG rate assessment: normal Rhythm: Rhythm: sinus rhythm Other findings: Other findings: LVH Interpretation: Interpretation: abnormal Gurmeet Church MD 04/21/23 7175 L WIRE COATING OPERATOR documented in this encounter Plan of Treatment Not on file documented as of this encounter Procedures Procedure Name Priority Date/Time Associated Diagnosis Comments URINALYSIS AND REFLEX TO MICROSCOPIC AND CULTURE Routine 04/21/2023 6:38 PM METAL WIRE COATING OPERATOR URINALYSIS, MICROSCOPIC ONLY Routine 04/21/2023 6:38 PM METAL WIRE COATING OPERATOR TROPONIN T HIGH-SENSITIVITY 2-HOUR Timed 04/21/2023 5:33 PM METAL WIRE COATING OPERATOR TROPONIN T HIGH-SENSITIVITY SERIES (BASELINE, 2HR, 4HR, 6HR) Routine 04/21/2023 3:02 PM METAL WIRE COATING OPERATOR EGFR STAT 04/21/2023 3:02 PM METAL WIRE COATING OPERATOR DIFFERENTIAL AUTO STAT 04/21/2023 3:0 2 PM METAL WIRE COATING OPERATOR PRO B-TYPE NATRIURETIC PEPTIDE STAT 04/21/2023 3:02 PM METAL WIRE COATING OPERATOR CBC WITH AUTO DIFFERENTIAL STAT 04/21/2023 3:02 PM METAL WIRE COATING OPERATOR PROTIME-INR STAT 04/21/2023 3:02 PM METAL WIRE COATING OPERATOR MAGNESIUM Routine 04/21/2023 3:02 PM METAL WIRE COATING OPERATOR COMPREHENSIVE METABOLIC PANEL STAT 04/21/2023 3:02 PM METAL WIRE COATING OPERATOR XR CHEST 1 VIEW ED 04/21/2023 1:51 PM METAL WIRE COATING OPERATOR ECG 12-LEAD Routine 04/21/2023 1:31 PM METAL WIRE COATING OPERATOR INFLUENZA A/B, RSV, AND COVID-19 PCR Routine 04/21/2023 1:27 PM METAL WIRE COATING OPERATOR documented in this encounter Results * (ABNORMAL) Urinalysis, microscopic only (04/21/2023 6:38 PM METAL WIRE COATING OPERATOR) WBC, ur 0-5 0 - 5 [...] (JANE) Urine, clean voided 04/21/2023 6:38 PM METAL WIRE COATING OPERATOR 04/21/2023 6:40 PM METAL WIRE COATING OPERATOR us Tiago Kerr MD LAB URINE ORDERABLES Final Res ult JOSE [facility] ([place]) 1 [facility] Department [place] [address] * (ABNORMAL) Urinalysis reflex to microscopic and culture Urine, clean voided (04/21/2023 6:38 PM METAL WIRE COATING OPERATOR) Color, ur Yellow Yellow [facility] ([place]) [...] tendency for uric acid stone formation. Source: [facility] Laboratories Current Interpretive Data was last revised [...] (JANE) Urine, clean voided 04/21/2023 6:38 PM METAL WIRE COATING OPERATOR 04/21/2023 6:40 PM METAL WIRE COATING OPERATOR Tiago Kerr MD LAB MICROBIOLOGY - GENERAL ORD ERABLES Final Result Performing Organization Address City/[facility]/ZIP Co de Phone Number [facility] ([place]) 1 [facility] [place] [address] * Troponin T high-sensitivity 2-hour (04/21/2023 5:33 PM METAL WIRE COATING OPERATOR) Trop T hs 10 <=14 ng/L [facility] ([place]ANE) Comment: Interpretive Data For further hscTnT resources including the diagnostic algorithm and an aid in interpretation, copy and paste this link: https://nrl.testcatalog.org/show/hsTrop Current Interpretive Data last revised 2020. Trop T hs delta 0 ng/L [facility] ([place]) Trop T hs interp Insignificant [facility] ([place]) Blood 04/21/2023 5:33 PM METAL WIRE COATING OPERATOR 04/21/2023 5:37 PM METAL WIRE COATING OPERATOR us Gurmeet Church MD LAB BLOOD ORDERABLES Final R esult JOSE MARCELINO ([place]) 1 [facility] Department [place] [address] * eGFR (04/21/2023 3:02 PM METAL WIRE COATING OPERATOR) Pathologist [facility] eGFR 76 mL/min/1. 73 m2 P[facility]OMMY CHARI ([place]) Comment: Interpretive Data Reference Interval Normal ?>/= [...] last reviewed 2021. Blood 04/21/2023 3:02 PM METAL WIRE COATING OPERATOR 04/21/2023 3:04 PM METAL WIRE COATING OPERATOR us Gurmeet Church MD LAB BLOOD ORDERABLES Final R esult JOSE MARCELINO ([place]) 1 [facility] Department [place] [address] * Differential, auto (04/21/2023 3:02 PM METAL WIRE COATING OPERATOR) Pathologist [facility] Neutrophil abs 1.5 1.5 - 6.5 K/cumm [...] revised on 2017. Blood 04/21/2023 3:02 PM METAL WIRE COATING OPERATOR 04/21/2023 3:04 PM METAL WIRE COATING OPERATOR Result [facility] Gurmeet Church MD LAB BLOOD ORDERABLES Final R esult Performing Organization Address City/[facility]/ZIP Co de Phone Number JOSE MARCELINO ([place]) 1 [place] [address] * Troponin T high-sensitivity series (baseline, 2hr, 4hr, 6hr) (04/21/2023 3:02 PM METAL WIRE COATING OPERATOR) Trop T hs 10 <=14 ng/L [facility] ([place]) Comment: Interpretive Data For further hscTnT resources including the diagnostic algorithm and an aid in interpretation, copy and paste this link: https://nrl.testcatalog.org/show/hsTrop Current Interpretive Data last revised 2020. Blood 04/21/2023 3:02 PM METAL WIRE COATING OPERATOR 04/21/2023 3:04 PM METAL WIRE COATING OPERATOR Gurmeet Church MD LAB BLOOD ORDERABLES Final R esult Performing Organization Address [facility] Co de Phone Number JOSE MARCELINO ([place]) 1 [facility] [place] [address] * Protime-INR (04/21/2023 3:02 PM METAL WIRE COATING OPERATOR) PT 11.9 10.3 - 13.7 sec JOSE [facility] ([place]) INR 1.04 0.90 - 1.20 [facility] ([place]) Comment: Interpretive data Oral anticoagulant therapeutic ranges: Venous thromboembolism prophylaxis or treatment: 2.0-3.0 CARDIOLOGY Standard range: 2.0-3.0 High-intensity range: 2.5-3.5 Refer to indication-specific guidelines for appropriate target ranges for prosthetic heart valve replacement. Current interpretive data was last revised on 2019. Blood 04/21/2023 3:02 PM METAL WIRE COATING OPERATOR 04/21/2023 3:04 PM METAL WIRE COATING OPERATOR Gurmeet Church MD LAB BLOOD ORDERABLES Final R esult Performing Organization Address City/[facility]/ZIP Co de Phone Number JOSE MARCELINO ([place]) 1 [facility] Department [place] [address] * Pro B-type natriuretic peptide (04/21/2023 3:02 PM METAL WIRE COATING OPERATOR) NT-proBNP 275 <=450 pg/mL JOSE MARCELINO ([place]) Comment: Interpretive Comments: A. Dyspnea in Acute [...] Revised Date: 2017. Blood 04/21/2023 3:02 PM METAL WIRE COATING OPERATOR 04/21/2023 3:03 PM METAL WIRE COATING OPERATOR Gurmeet Church MD LAB BLOOD ORDERABLES Final R esult Performing Organization Address City/[facility]/ZIP Co de Phone Number JOSE MARCELINO ([place]) 1 [facility] [place] [address] * Magnesium (04/21/2023 3:02 PM METAL WIRE COATING OPERATOR) Magnesium 2.0 1.4 - 2.5 mg/dL [facility] ([place]ANE) Blood 04/21/2023 3:02 PM METAL WIRE COATING OPERATOR 04/21/2023 3:04 PM METAL WIRE COATING OPERATOR Gurmeet Church MD LAB BLOOD ORDERABLES Final R esult Performing Organization Address City/[facility] Co de Phone Number JOSE MARCELINO ([place]) 1 [facility] [place] [address] * Comprehensive metabolic panel (04/21/2023 3:02 PM METAL WIRE COATING OPERATOR) Sodium 136 135 - 145 mmol/L [facility] ([place]) Potassium, pl 4.6 3.3 - 4.9 mmol/L [facility] ([place]) Chloride 102 97 - 110 mmol/L [facility] ([place]ANE) CO2 23 22 - 32 mmol/L [facility] ([place]) Anion gap 11 2 - 15 mmol/L [facility] ([place]) BUN 15 6 - 25 mg/dL [facility] ([place]ANE) Creatinine 0.78 0.60 - 1.10 mg/dL [facility] ([place]) Glucose 91 70 - 199 mg/dL [facility] ([place]) Comment: Interpretive Data Fasting [...] Slightly Hemolyzed Specimen Blood 04/21/2023 3:02 PM METAL WIRE COATING OPERATOR 04/21/2023 3:04 PM METAL WIRE COATING OPERATOR us Gurmeet Church MD LAB BLOOD ORDERABLES Final R esult [facility] ([place]) 1 [facility] Department [place] [address] * (ABNORMAL) CBC with auto differential (04/21/2023 3:02 PM METAL WIRE COATING OPERATOR) WBC 3.8 3.8 - 9.9 K/cumm CERNER [...] JOSE MARCELINO ([place]) Blood 04/21/2023 3:02 PM METAL WIRE COATING OPERATOR 04/21/2023 3:04 PM METAL WIRE COATING OPERATOR Gurmeet Church MD LAB BLOOD ORDERABLES Final R esult JOSE MARCELINO ([place]) 1 [facility] Department [place] [address] * XR Chest 1 View (04/21/2023 1:51 PM METAL WIRE COATING OPERATOR) Anatomical Region Laterality Modality Body, Chest N/A Computed Radiogr aphy 04/21/2023 1:52 PM METAL WIRE COATING OPERATOR Narrative 04/21/2023 1:53 PM METAL WIRE COATING OPERATOR EXAM DESCRIPTION: XR CHEST 1 VIEW REASON [...] PM T: ??04/21/2023 1:53 PM Report ID: [id number] Reading Location: ??[id number] Procedure Note Kota Mueller, DO - 04/21/2023 [...] Kota Mueller D.O. PS: PS Report ID: [id number] Reading Location: [id number] us Gurmeet Church MD IMG XR PROCEDURES Final Resu lt * ECG 12 lead (04/21/2023 1:31 PM METAL WIRE COATING OPERATOR) 04/21/2023 1:31 PM METAL WIRE COATING OPERATOR Narrative [facility] - 04/22/2023 10:20 AM METAL WIRE COATING OPERATOR Vent Rate: 61 bpm RR Interval: 969 msec ND Interval: 162 msec QRS Duration: 88 msec QT Interval: 384 msec QTC Interval: 388 msec P-R-T [place]: 53 - 2 - 47 degrees IMPRESSION: SINUS RHYTHM MODERATE VOLTAGE CRITERIA FOR LVH, CONSIDER NORMAL VARIANT ??[MEETS CRITERIA IN ONE OF: R(aVL), S(V1), R(V5), R(V5/V6)+S(V1)] BORDERLINE ECG Electronically Signed By: Jaron Moncada Gurmeet Church MD ECG ORDERABLES Final Result [facility] * (ABNORMAL) Influenza A/B, RSV, and COVID-19 PCR Nasopharyngeal (04/21/2023 1:27 PM METAL WIRE COATING OPERATOR) Pathologist [facility] COVID-19 RNA Positive(A) Negative [facility] ([place]) Influenza A RNA Negative Negative [facility] ([place]) Influenza B RNA Negative Negative [facility] ([place]) RSV RNA Negative Negative [facility] ([place]ANE) Comment: Interpretive data: Testing performed by [facility]. This test is performed using the [employer] Xpert Xpress CoV-2/Flu/RSV plus assay. This is a multiplex, real- time reverse transcriptase PCR assay intended for the qualitative detection of nucleic acid from SARS-CoV-2, influenza A, influenza B, and respiratory syncytial virus. This assay has been cleared by the [place] Food and Drug administration. The performance characteristics have been verified by the [facility]. ?? Results must be considered in the clinical context, and a negative result does not rule out infection. Interpretive Data last revised 2023 Nasopharyngeal 04/21/2023 1: 27 PM METAL WIRE COATING OPERATOR 04/21/2023 1:29 PM METAL WIRE COATING OPERATOR Narrative JOSE MARCELINO ([place]ANE) - 04/21/2023 2:09 PM METAL WIRE COATING OPERATOR Is the Patient experiencing symptoms consistent with COVID?->Yes Date of Symptom Onset->04/18/23 Reason for testing?->Symptomatic Gurmeet Church MD LAB MICROBIOLOGY - GENERAL O RDERABLES Final Result Performing Organization Address City/[facility]/ZIP Co de Phone Number JOSE MARCELINO ([place]) 1 [facility] Department [place] [address] documented in this encounter Visit Diagnoses Diagnosis Hallucinations- Primary COVID documented in this encounter Additional Health Concerns Infection Onset Date Last Indicated Resolved Time COVID: Suspected 04/21/2023 04/21/2023 04/21/2023 2:09 PM METAL WIRE COATING OPERATOR COVID19 04/21/2023 04/21/2023 05/01/2023 3:05 AM METAL WIRE COATING OPERATOR documented as of this encounter Care Teams Community Health Program Representative Relationship Specialty Start Date End Date Jocelynn Coy DO PCP - General Family Medicine 06/10/17 09/02/23 Brian Madera MD [address] [place] [address] [place] [address] Consulting Physician Neurology 04/02/22 documented as of this encounter
--- OUTSIDE RECORDS SUMMARY | 2024-03-31 16:36 | XMS_ITS | Encounter Summary ---
Author Organization [facility] Healthcare Address [address] [place] [address] Care Team Providers Care Dish Technician Name Role Phone Jocelynn Coy DO Primary Care Provider +1- [phone] Brian Madera MD Unavailable [phone] Reason for Visit * Reason Onset Date Comments Referral Request 05/10/2023 Encounter Details Date Type Department Care Team (Late st Contact Info) Description 05/10/2023 Telephone [facility] Primary Care at [address] [place] [address] Jocelynn Coy DO [address] [place] [address] Referral Request Social History Tobacco [...] on file Legal Sex Female 8:45 PM DEVELOPMENT GEOLOGIST Gender Identity Female 04/25/2021 2:46 PM DEVELOPMENT GEOLOGIST Sexual Orientation Straight 04/25/2021 2: 46 PM DEVELOPMENT GEOLOGIST documented as of this encounter Miscellaneous Notes * Telephone Encounter - Megan Rosario - 05/10/2023 10:24 AM CST Referral obtained. Faxing to provided number. LOPMENT GEOLOGIST * Telephone Encounter - Kathia Tellez - 05/10/2023 10:06 AM CST Referral Provider Name (if patient is seeing a nurse practitioner or physician sociology research assistant, list the SCIENTIFIC SOFTWARE DEVELOPER/PA, but also their collaborating doctor): Brian Coughlin, D.P.M. Specialty: Podiatry Foot Surgery Primary Practice Address [address] [place] [address] Diagnosis Code/Symptom/Reason Patient is being seen: Routine Date of Appointment: 05.16 NPI#: [id number] Tax ID#: [id number] Is insurance in chart up to date? Yes Additional Comments: Marking high priority patient's appointment is next week. Does message need to be routed? Yes-Action Needed LOPMENT GEOLOGIST documented in this encounter Plan of Treatment Not on file documented as of this encounter Visit Diagnoses Not on filedocumented in this encounter Additional Health Concerns Infection Onset Date Last Indicated Resolved Time COVID: Recovered Comment:Added based on recent COVID infection. 05/01/2023 05/03/2023 07/30/2023 3:06 AM C DT documented as of this encounter Care Teams Dish Technician Relationship Specialty Start Date End Date Jocelynn Coy DO PCP - General Family Medicine 06/10/17 09/02/23 Brian Madera MD [address] [facility] [place] [address] Consulting Physician Neurology 04/02/22 documented as of this encounter
--- OUTSIDE RECORDS SUMMARY | 2024-03-31 16:36 | XMS_ITS | Encounter Summary ---
Author Organization [facility] Healthcare Address [address] [place] [address] Care Team Providers Care Inside Sales Director Name Role Phone Jocelynn Coy DO Primary Care Provider [phone]- [phone] Brian Madera MD Unavailable [phone] Reason for Visit * Reason Onset Date Comments Medical Question/Miscellaneous 06/27/2023 Encounter Details Date Type Department Care Team (Late st Contact Info) Description 06/27/2023 Telephone [facility] Primary Care at [address] [place] [address] [place] [address] [place] [address] [place] [address] Medical Question/Miscellaneous Social History Tobacco [...] on file Legal Sex Female 8:45 PM HEALTH INFORMATION PROVIDER Gender Identity Female 04/25/2021 2:46 PM HEALTH INFORMATION PROVIDER Sexual Orientation Straight 04/25/2021 2: 46 PM HEALTH INFORMATION PROVIDER documented as of this encounter Miscellaneous Notes [...] documented as of this encounter Care Teams Inside Sales Director Relationship Specialty Start Date End Date Jocelynn Coy DO PCP - General Family Medicine 06/10/17 09/02/23 Brian Madera MD [address] [place] [address] Consulting Physician Neurology 04/02/22 documented as of this encounter
--- OUTSIDE RECORDS SUMMARY | 2024-03-31 16:37 | XMS_ITS | Encounter Summary ---
Author Organization [facility] Address [address] [place] [address] Care Team Providers Care Stamp Mounter Name Role Phone Jocelynn Coy DO Primary Care Provider +1- [phone] Encounter Details Date Type Department Care Team (Late st Contact Info) Description 11/16/2021 Telephone [facility] [address] [place] [address] [place] [id number] Rupal Mena MA Social History Tobacco Use [...] file Legal Sex Female 8:45 PM MANAGER USER EXPERIENCE Gender Identity Female 04/25/2021 2:46 PM MANAGER USER EXPERIENCE Sexual Orientation Straight 04/25/2021 2: 46 PM MANAGER USER EXPERIENCE documented as of this encounter Miscellaneous Notes [...] on filedocumented in this encounter Care Teams Stamp Mounter Relationship Specialty Start Date End Date Jocelynn Coy DO PCP - General Family Medicine 06/10/17 09/02/23 documented as of this encounter
--- OUTSIDE RECORDS SUMMARY | 2024-03-31 16:37 | XMS_ITS | Encounter Summary ---
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) Procedures MRI Brain WO Contrast Brian Madera MD [address] [place] [address] [place] [address] Phone: tel: fax: [address] [address] Referral ID Status Reason Start Date Expiration Date Visits Re quested Visits Authorized [id number] Closed 01/03/2022 04/03/2022 1 1 Reason for Visit * MRI/CAT/PET Scan (Routine) - Closed Specialty Diagnoses / Procedures Referred By Contkurt chiang Referred To Contact Radiology Diagnoses 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) Procedures MRI Brain WO Contrast Brian Madera MD [address] [place] [address] [place] [address] Phone: tel: fax: [address] [phone] Referral ID Status Reason Start Date Expiration Date Visits Re quested Visits Authorized [id number] Closed 01/03/2022 04/03/2022 1 1 Encounter Details Date Type Department Care Team (Latest Contact Info) Description 01/03/2022 10:35 AM CDT - 01/03/2022 11:59 PM CDT Hospital Encounter [facility] [address] [place] [address] Brian Madera MD [address] [place] [address] [address] [place] [address] 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 (CMS/HCC) (HCC) [...] Sex Female 8:45 PM WIRE WINDING MACHINE TENDER Gender Identity Female 04/25/2021 2:46 PM WIRE WINDING MACHINE TENDER Sexual Orientation Straight 04/25/2021 2: 46 PM WIRE WINDING MACHINE TENDER documented as of this encounter Medications at Time of Discharge blood glucose diagnostic stripIndications: Type 2 diabetes mellitus with hyperglycemia, without long-term current use of insulin ([facility]) Use one strip to monitor home blood sugars daily. 100 each 3 11/07/2020 blood-glucose meter kitIndications:Ty pe 2 diabetes mellitus with hyperglycemia, without long-term current use of insulin ([facility]) 1 Device daily 1 each 10/18/2020 coenzyme Q10 100 mg capsule Take 1 capsule (100 mg total) by mouth daily lancets 31 gauge miscIndications:T ype 2 diabetes mellitus with hyperglycemia, without long-term current use of insulin ([facility]) 1 Device daily 100 each 3 10/03/2020 [...] cerebral hemispheres is nonspecific but compatible with lgpg-gq-uxzonpvz chronic microvascular ischemic type change in a [...] AM T: ??01/03/2022 11:40 AM Report ID: [id number] Reading Location: ??[id number] Procedure Note Donaldo Betts DO - 01/03/2022 [...] cerebral hemispheres is nonspecific but compatible with eyby-hn-kuwwtxpu chronic microvascular ischemic type change in a [...] Donaldo Betts D.O. 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
--- OUTSIDE RECORDS SUMMARY | 2024-03-31 16:37 | XMS_ITS | Encounter Summary ---
Author Organization [facility] Medical Group Address [address] [place] [address] Care Team Providers Care Tool Designer Apprentice Name Role Phone Jocelynn Coy DO Primary Care Provider +1- [phone] Reason for Visit * Reason Comments Hypertension Hyperlipidemia Diabetes Anxiety Encounter Details Date Type Department Care Team (Late st Contact Info) Description 01/09/2021 3:00 PM CDT Office Visit [facility] [address] [place] [phone] Berna Shabazz, NORMAN [address] [facility] [address] [place] [address] Flu vaccine need (Primary Dx); [...] on file Legal Sex Female 8:45 PM SPANISH INTERPRETER/TRANSLATOR Gender Identity Female 04/25/2021 2:46 PM SPANISH INTERPRETER/TRANSLATOR Sexual Orientation Straight 04/25/2021 2: 46 PM SPANISH INTERPRETER/TRANSLATOR documented as of this encounter Last Filed [...] this encounter Progress Notes * Berna Shabazz, MEDICAL DEVICE ENGINEER - 01/09/2021 3:00 PM CDT Images from [...] kell is being taken. She sees a cpht.Eye exam is current. Anxiety Presents for follow-up [...] without long-term current use of insulin ([facility] ([facility]) Assessment & Plan: Tolerating metformin well. Checking [...] NP LAB BLOOD ORDERABLES Final [facility]ul t [facility] ([place] [address] [facility] Department [place] [address] * (ABNORMAL) Hemoglobin A1c (01/10/2021 [...] children were not included. ?? (Diabetes Care 31:0835-2485, 2008). ??The eAG is not equivalent to a fasting glucose. Blood 01/10/2021 9:12 AM CDT 01/10/2021 1:28 PM CDT Berna Shabazz NP LAB BLOOD ORDERABLES Final Resul t [facility] ([place]) [address] [facility] Department [place] [address] documented in this encounter Visit Diagnoses Diagnosis [...] 01/09/2021 documented in this encounter Care Teams Tool Designer Apprentice Relationship Specialty Start Date End Date Jocelynn Coy DO PCP - General Family Medicine 06/10/17 09/02/23 documented as of this encounter
--- OUTSIDE RECORDS SUMMARY | 2024-03-31 16:37 | XMS_ITS | Encounter Summary ---
Author Organization [facility] Healthcare Address [address] [place] [address] Care Team Providers Care C Developer Name Role Phone Jocelynn Coy DO Primary Care Provider +1- [phone] Encounter Details Date Type Department Care Team (Late st Contact Info) Description 09/04/2021 12:45 PM CDT Lab [address] Jocelynn Coy DO [address] [facility] [address] [facility] [place] [address] Type 2 diabetes mellitus with hyperglycemia, without long-term current use of insulin (CMS/HCC) ([facility]); Pre-op exam Discharge Disposition: Discharge to home [...] on file Legal Sex Female 8:45 PM DIAL SCREW ASSEMBLER Gender Identity Female 04/25/2021 2:46 PM DIAL SCREW ASSEMBLER Sexual Orientation Straight 04/25/2021 2: 46 PM DIAL SCREW ASSEMBLER documented as of this encounter Discharge Disposition Disposition Code Departure Means Destination Discharge to home or self care documented in this encounter Plan of Treatment Not on file documented as of this encounter Procedures Procedure Name Priority Date/Time Associated Diagnosis Comments EGFR Routine 09/04/2021 12:42 PM CDT Pre-op exam Type 2 diabetes mellitus with hyperglycemia, without long-term current use of insulin ([facility]/HCC) ([facility]) DIFFERENTIAL AUTO Routine 09/04/2021 12: 42 PM CDT Pre-op exam CBC WITH AUTO DIFFERENTIAL Routine 09/04/2021 12:42 PM CDT Pre-op exam ALBUMIN CREATININE RATIO, URINE Routine 09/04/2021 12:42 PM CDT Type 2 diabetes mellitus with hyperglycemia, without long-term current use of insulin ([facility]/HCC) ([facility]) HEMOGLOBIN A1C Routine 09/04/2021 12:42 PM CDT Type 2 diabetes mellitus with hyperglycemia, without long-term current use of insulin ([facility]/HCC) ([facility]) COMPREHENSIVE METABOLIC PANEL Routine 09/04/2021 12:42 PM CDT Pre-op exam Type 2 diabetes mellitus with hyperglycemia, without long-term current use of insulin ([facility]/HCC) ([facility]) documented in this encounter Results * eGFR [...] ORDERABLES Final Result [facility] ([place]) [address] [facility] Department [place] [address] * Differential, auto (09/04/2021 12:42 PM CDT) [...] ORDERABLES Final Result [facility] ([place]) [address] [facility] [place] [address] * Albumin Creatinine Ratio, Urine (09/04/2021 12:42 PM CDT) Albumin Ur <12.0 mg/L [facility] ([place]) Comment: Interpretive Data No reference range established. Current interpretive data was last revised 2018. Testing performed by: [facility], [address] [place] [address], [place]., [address] Creatinine Ur 113.6 mg/dL [facility] ([place]) Comment: Interpretive Data No reference range established. Current interpretive data was last revised 2018. Testing performed by: [facility], [address] [place] [address]., [address] Albumin Creatinine Ratio, Ur <11 1 - 29 mg/g [facility]ELINO ([place]) Comment:Testing performed by : [facility], [address] [place] [address], [place]., [address] Urine 09/04/2021 12:4 2 PM CDT 09/04/2021 8:33 PM CDT us Jocelynn Coy DO LAB URINE ORDERABLES Final Result [facility] ([place]) [address] [facility] [place] [address] * (ABNORMAL) CBC with auto differential (09/04/2021 [...] BLOOD ORDERABLES Final Result Performing Organization Address City/[facility]/ZIP Co de Phone Number [facility] ([place]) [address] [facility] [place] [address] * Comprehensive metabolic panel (09/04/2021 12:42 PM [...] BLOOD ORDERABLES Final Result Performing Organization Address [facility]/ZIP Co de Phone Number [facility] ([place]) [address] [facility] [place] [address] * (ABNORMAL) Hemoglobin A1c (09/04/2021 12:42 PM [...] children were not included. ?? (Diabetes Care 31:2283-3603, 2008). ??The eAG is not equivalent to a fasting glucose. Blood 09/04/2021 12:4 2 PM CDT 09/04/2021 1:29 PM CDT us Jocelynn Coy DO LAB BLOOD ORDERABLES Final Result Performing Organization Address [facility] Co de Phone Number [facility] ([place]) [address] [facility] [place] [address] documented in this encounter Visit Diagnoses Diagnosis Type 2 diabetes mellitus with hyperglycemia, without long-term current use of insulin (HCC) Pre-op exam documented in this encounter Care Teams C Developer Relationship Specialty Start Date End Date Jocelynn Coy DO PCP - General Family Medicine 06/10/17 09/02/23 documented as of this encounter
--- OUTSIDE RECORDS SUMMARY | 2024-03-31 16:37 | XMS_ITS | Encounter Summary ---
Author Organization [facility] Healthcare Address [address] [place] [address] Care Team Providers Care Switch Foreman Name Role Phone Jocelynn Coy DO Primary Care Provider +1- [phone] Encounter Details Date Type Department Care Team (Late st Contact Info) Description 11/06/2021 9:25 PM CDT Lab [address] [address] Abscess of skin of neck Social History [...] file Legal Sex Female 8:45 PM ASSISTANT PROFESSOR SCULPTURE Gender Identity Female 04/25/2021 2:46 PM ASSISTANT PROFESSOR SCULPTURE Sexual Orientation Straight 04/25/2021 2: 46 PM ASSISTANT PROFESSOR SCULPTURE documented as of this encounter Miscellaneous Notes [...] Positive Cocci JOSE Comment:Testing performed by : [facility], [address] [place]., [address] Report Final Report: Few Finegoldia magna (.) JOSE Comment:Testing performed by : [facility], [address] [place]., [address] Organism FINEGOLDIA MAGNA JOSE Abscess (Neck, left) 11/06/2021 7:24 PM CDT 11/07/2021 9:57 AM CDT Narrative JOSE - 11/13/2021 1:17 PM CDT Testing performed by [facility] ([phone]) Specimens submitted from normally sterile body sites [...] MICROBIOLOGY - GENERAL ORDERABLES Final Result JOSE [address] Department [place] [address] documented in this encounter Visit Diagnoses Diagnosis Abscess of skin of neck documented in this encounter Care Teams Switch Foreman Relationship Specialty Start Date End Date Jocelynn Coy DO PCP - General Family Medicine 06/10/17 09/02/23 documented as of this encounter
--- OUTSIDE RECORDS SUMMARY | 2024-03-31 16:37 | XMS_ITS | Encounter Summary ---
Author Organization [facility] Healthcare Address [address] [place] [address] Care Team Providers Care Motorcycle Service Technician Name Role Phone Jocelynn Coy DO Primary Care Provider +1- [phone] Brian Madera MD Unavailable Carmelita Olivera MD Primary Care Provide r Mikala Sheth MA Unavailable [phone] Yuliana Simmons LCSW Unavailable [phone] Encounter Details Date Type Department Care Team (Late st Contact Info) Description 01/09/2022 Telephone [facility] [address] [place] [id number] Stefany Carroll, GEMA Social History Tobacco Use [...] file Legal Sex Female 8:45 PM MACHINE BANDER AND CELLOPHANER HELPER Gender Identity Female 04/25/2021 2:46 PM MACHINE BANDER AND CELLOPHANER HELPER Sexual Orientation Straight 04/25/2021 2: 46 PM MACHINE BANDER AND CELLOPHANER HELPER documented as of this encounter Plan of Treatment Not on file documented as of this encounter Visit Diagnoses Not on filedocumented in this encounter Additional Health Concerns Infection Onset Date Last Indicated Resolved Time COVID: Suspected 04/21/2023 04/21/2023 04/21/2023 2:09 PM MACHINE BANDER AND CELLOPHANER HELPER COVID19 04/21/2023 04/21/2023 05/01/2023 3:05 AM MACHINE BANDER AND CELLOPHANER HELPER COVID: Recovered Comment:Added based on recent COVID infection. 05/01/2023 05/03/2023 07/30/2023 3:06 AM C DT documented as of this encounter Care Teams Motorcycle Service Technician Relationship Specialty Start Date End Date CoyJocelynn DO Abdulaziz PCP - General Family Medicine 06/10/17 09/02/23 Carmelita Olivera MD [address] [facility] [address] [place] [address] PCP - General Family Medicine 09/03/23 Brian Madera MD [address] [place] [address] [address] [place] [address] Consulting Physician Neurology 04/02/22 Mikala Sheth, MA [address] [place] [address] [address] [place] [address] ACO Care Cigar Packer And Picker 11/21/23 11/21/23 Yuliana Simmons, [address] [place] [address] Photo Studio Assistant Supervisory Investigative Specialist 12/12/23 02/16/24 documented as of this encounter
--- OUTSIDE RECORDS SUMMARY | 2024-03-31 16:37 | XMS_ITS | Encounter Summary ---
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) Procedures FL Fluoro Guided Lumbar Puncture Brian Madera MD [address] [place] [address] [place] [address] Phone: tel: fax: [address] [phone] Referral ID Status Reason Start Date Expiration Date Visits Re quested Visits Authorized [id number] Closed 11/17/2021 12/17/2022 1 1 Reason for Visit * Diagnostic Imaging (Routine) - Closed Specialty Diagnoses / Procedures Referred By Contac t Referred To Contact Diagnoses 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) Procedures FL Fluoro Guided Lumbar Puncture Brian Madera MD [address] [place] [address] [place] [address] Phone: tel: fax: [address] [phone] Referral ID Status Reason Start Date Expiration Date Visits Re quested Visits Authorized [id number] Closed 11/17/2021 12/17/2022 1 1 Encounter Details Date Type Department Care Team (Latest Contact Info) Description 01/17/2022 8:15 AM CDT - 01/17/2022 11:59 PM CDT Hospital Encounter [facility] [address] [place] [id number] 1, Amh Augustin Rn Rad, Will Fluoro [...] on file Legal Sex Female 8:45 PM CORRECTIONAL LIEUTENANT Gender Identity Female 04/25/2021 2:46 PM CORRECTIONAL LIEUTENANT Sexual Orientation Straight 04/25/2021 2: 46 PM CORRECTIONAL LIEUTENANT documented as of this encounter Last Filed [...] Care Everywhere. * Lumbar Puncture (Discharge Care) (Sammarinese) documented in this encounter Medications at Time [...] :Hyperlipidemia associated with type 2 diabetes mellitus ([facility]) Take 1 tablet (20 mg total) by mouth daily 90 tablet 3 03/30/2021 2 ketorolac (ACULAR) 0.5 % ophthalmic solution 09/22/2021 2 lisinopriL (PRINIVIL,ZESTRIL ) 2.5 mg tabletIndications :Type 2 diabetes mellitus with hyperglycemia, without long-term current use of insulin ([facility]),Hypertensio n associated with diabetes ([facility]) TAKE 1 TABLET BY MOUTH EVERY DAY 90 tablet 3 09/13/2021 3 LORazepam (ATIVAN) 0.5 mg tabletIndications :Generalized anxiety disorder Take 1 tablet (0.5 mg total) by mouth as needed for anxiety 30 tablet 5 10/06/2021 2 metFORMIN XR (GLUCOPHAGE XR) 500 mg 24 hr tabletIndications :Type 2 diabetes mellitus with hyperglycemia, without long-term current use of insulin ([facility]) TAKE 1 TABLET BY MOUTH [...] taking for the 01/17/22 encounter (Hospital Encounter)with [place] [id number]. Pertinent medications have been reviewed with the patient and/or their billing representative. Most Recent Vitals: Vitals: 01/17/22 0820 BP: 149/76 Pulse: 73 Resp: 18 Temp: 36.6 ??C (97.9 ??F) SpO2: 99% Airway assessment: normal Physical Exam Cardiac: No Significant Abnormality Pulmonary: No Significant Abnormality Neurological: No Significant Abnormality ASA Score: 2 NPO time: after midnight Benefits, risks and alternatives of procedure and planned sedation have been discussed with the patient and/or their billing representative. All questions answered and they agree [...] was obtained. ??Prior to beginning the procedure, [place] Protocol was performed to confirm the patient's [...] AM T: ??01/17/2022 9:38 AM Report ID: [id number] Reading Location: ??[id number] Procedure Note Brian Merritt MD - 01/17/2022 [...] Brian Merritt M.D. MF: YONATHAN Report ID: [id number] Reading Location: [place] [address] us Brian Madera MD IMG FLUOROSCOPY PROCEDU [...] OLS ORDERABLES Final Result JOSE MatsonJANE) 1 [facility] [place] [address] * (ABNORMAL) Protein, total, CSF (01/17/2022 8:59 AM CDT) [facility] Protein, CSF 47(H) 5 - 45 mg/dL [facility] CSF 01/17/2022 8:59 AM CDT 01/17/2022 9:13 AM CDT Brian Madera MD LAB BODY FLUIDS AND STO OLS ORDERABLES Final Result JOSE MARCELINO ([place]) [address] [place] [address] * Glucose, CSF (01/17/2022 8:59 AM CDT) Pathologist [facility] Glucose, CSF 77 mg/dL [facility]) Comment: Reference Interval Information: CSF Glucose should [...] STO OLS ORDERABLES Final Result JOSE MARCELINO ([place]) 1 [facility] [place] [address] * (ABNORMAL) Alzheimer???s disease evaluation, CSF (01/17/2022 8:59 AM CDT) Pathologist [facility] p-Tau/Abeta42 0.035(H) <=0.023 [facility]) Abeta42 699(L) >1026 pg/mL [facility] ([place]) Total-TAU 265(H) <=238 pg/mL JOSE MARCELINO ([place]) Phospho-Tau(181P) 24.5(H) <=21.7 pg/mL JOSE MARCELINO ([place]) Comment: ADDITIONAL INFORMATION The testing method is an electrochemiluminescence assay manufactured by [employer] and performed on the Deborah system. Values obtained with different assay methods or kits may be different and cannot be used interchangeably. This test was developed and its performance characteristics determined by [facility] in a manner consistent with CLIA requirements. This test has not been cleared or approved by the U.S. Food and Drug Administration. Test Performed by: [address] [address] Table Worker Packager: Farrukh Waggoner M.D. Ph.D.; CLIA# [id number] CSF 01/17/2022 8:59 AM CDT 01/17/2022 9:10 AM CDT Brian Madera MD LAB GENETIC TESTING Fin al Result JOSE MARCELINO ([place]) [address] [facility] [place] [address] * Bacterial culture and gram stain, CSF CSF (01/17/2022 8:59 AM CDT) Direct Specimen Exam Stain: Cytospin Gram stain shows: No polymorphonuclear leukocytes seen. No organisms seen. JOSE MARCELINO ([place]) Comment:Testing performed by : [facility], [address] [place]., [address] Report Final Report: No growth JOSE MARCELINO ([place]) Comment:Testing performed by : [facility], [address] [place]., [address] CSF 01/17/2022 8:59 AM CDT 01/17/2022 9:55 AM CDT Narrative JOSE MARCELINO ([place]) - 01/22/2022 9:43 AM CDT Testing performed by [facility] Microbiology Laboratory ([phone]). us Brian Madera MD LAB MICROBIOLOGY - GENE RAL ORDERABLES Final Result JOSE MARCELINO ([place]) [address] [facility] [place] [address] documented in this encounter Visit Diagnoses Diagnosis [...] (Comment) documented in this encounter Care Teams Coil Winder Hand Relationship Specialty Start Date End Date Jocelynn Coy DO PCP - General Family Medicine 06/10/17 09/02/23 documented as of this encounter
--- OUTSIDE RECORDS SUMMARY | 2024-03-31 16:37 | XMS_ITS | Encounter Summary ---
Author Organization [facility] Address [address] [place] [address] Care Team Providers Care Blender Operator Name Role Phone Jocelynn Coy DO Primary Care Provider +1- [phone] Reason for Visit * Reason Comments Hypertension 6 mo f/u Hyperlipidemia DM2 Anxiety Encounter Details Date Type Department Care Team (Late st Contact Info) Description 10/06/2021 8:00 AM CDT Office Visit [facility] [address] [place] [phone] Jocelynn Coy DO [address] [place] [address] Hypertension associated with diabetes (HCC) (Primary Dx); [...] on file Legal Sex Female 8:45 PM GUNSMITH APPRENTICE Gender Identity Female 04/25/2021 2:46 PM GUNSMITH APPRENTICE Sexual Orientation Straight 04/25/2021 2: 46 PM GUNSMITH APPRENTICE documented as of this encounter Last Filed [...] not included. Patient Education DASH Eating Plan [employer]: The DASH (Dietary Approaches to Stop Hypertension) [...] add flavor to foods. Try lemon or [place] juice or vinegar to give foods a [...] oil, and liquid and soft tub margarines. Kent-3 fatty acids are found in fatty fish, [...] or 1?? ounces of liquor. ?? 2017 [employer] Information is for End User's use only and may not be sold, redistributed or otherwise used for commercial purposes. All illustrations and images included in CareNotes?? are the copyrighted property of [employer], [employer]. or [employer]. The above information is an occupational rehabilitation aide only. It is not intended as [...] you have any questions or concerns at [phone]. You may receive a phone call, text, [...] Hyperlipidemia associated with type 2 diabetes mellitus ([facility]) Assessment & Plan: LDL at goal of < 100. Cont current meds. Type 2 diabetes mellitus with hyperglycemia, without long-term current use of insulin ([facility]/HCC) (HCC) Assessment & Plan: A1c at goal, cont current Rx meds. Generalized anxiety disorder Assessment & Plan: Clinically improved, continue current prescription medications. Orders: - LORazepam (ATIVAN) 0.5 mg tablet; Take 1 tablet (0.5 mg total) by mouth as needed for anxiety Jocelynn Coy DO This note is dictated and transcribed by [employer]. Child Protection Specialist variances may occur. Despite proofreading, typographical errors [...] current use of insulin ([facility]) A1c at goal, cont current [...] 04/02/2022 added in this encounter Care Teams Blender Operator Relationship Specialty Start Date End Date Jocelynn Coy DO PCP - General Family Medicine 06/10/17 09/02/23 documented as of this encounter
--- OUTSIDE RECORDS SUMMARY | 2024-03-31 16:37 | XMS_ITS | Encounter Summary ---
Author Organization [facility] Address [address] [place] [address] Care Team Providers Care Purchasing And Fiscal Clerk Name Role Phone Jocelynn Coy DO Primary Care Provider +1- [phone] Reason for Visit * Reason Onset Date Comments Request from Pharmacy 10/18/2020 Encounter Details Date Type Department Care Team (Late st Contact Info) Description 10/18/2020 Telephone [facility] [address] [place] [address] Jocelynn Coy DO [address] [address] [place] [id number] Request from Pharmacy Social History Tobacco Use [...] on file Legal Sex Female 8:45 PM ICHTHYOLOGY TEACHER Gender Identity Female 04/25/2021 2:46 PM ICHTHYOLOGY TEACHER Sexual Orientation Straight 04/25/2021 2: 46 PM ICHTHYOLOGY TEACHER documented as of this encounter Ordered Prescriptions [...] 10/18/2020 added in this encounter Care Teams Purchasing And Fiscal Clerk Relationship Specialty Start Date End Date Jocelynn Coy DO PCP - General Family Medicine 06/10/17 09/02/23 documented as of this encounter
--- OUTSIDE RECORDS SUMMARY | 2024-03-31 16:37 | XMS_ITS | Encounter Summary ---
Author Organization [facility] Address [address] [place] [address] Care Team Providers Care Machine Molder Squeeze Name Role Phone Jocelynn Coy DO Primary Care Provider +1- [phone] Reason for Visit * Reason Onset Date Comments Referral Request 08/16/2021 Ophthalmology Encounter Details Date Type Department Care Team (Late st Contact Info) Description 08/16/2021 Telephone [facility] of [address] [place] [address] Jocelynn Coy DO [address] [facility] [address] [address] Referral Request (Ophthalmology) Social History Tobacco Use [...] Legal Sex Female 8:45 PM DIRECTOR OF HOME HEALTH SERVICES Gender Identity Female 04/25/2021 2:46 PM DIRECTOR OF HOME HEALTH SERVICES Sexual Orientation Straight 04/25/2021 2: 46 PM DIRECTOR OF HOME HEALTH SERVICES documented as of this encounter Miscellaneous Notes * Telephone Encounter - Jocelynn Coy DO - 08/17/2021 9:08 AM CDT done * Telephone Encounter - Olga Ewing MA - 08/16/2021 2:18 PM CDT Received fax from [employer], patient is needing a new insurance referral to see Dr. Riggins for her upcoming appointment on 09/07/21 Referral is pending. documented in this encounter Plan of Treatment Not on file documented as of this encounter Visit Diagnoses Diagnosis Combined forms of age-related cataract of both eyes- Primary documented in this encounter Care Teams Machine Molder Squeeze Relationship Specialty Start Date End Date Jocelynn Coy DO PCP - General Family Medicine 06/10/17 09/02/23 documented as of this encounter
--- OUTSIDE RECORDS SUMMARY | 2024-03-31 16:37 | XMS_ITS | Encounter Summary ---
Author Organization [facility] Address [address] [place] [address] Care Team Providers Care Brake Drum Lathe Operator Name Role Phone Jocelynn Coy DO Primary Care Provider +1- [phone] Encounter Details Date Type Department Care Team (Late st Contact Info) Description 10/13/2020 4:25 PM CDT [address] [address] Jocelynn Coy DO [address] [facility] [address] [id number] Type 2 diabetes mellitus with hyperglycemia, without long-term current use of insulin ([facility]) Discharge Disposition: Discharge to home or self [...] file Legal Sex Female 8:45 PM TECHNICAL SERVICES REPRESENTATIVE Gender Identity Female 04/25/2021 2:46 PM TECHNICAL SERVICES REPRESENTATIVE Sexual Orientation Straight 04/25/2021 2: 46 PM TECHNICAL SERVICES REPRESENTATIVE documented as of this encounter Discharge Disposition Disposition Code Departure Means Destination Discharge to home or self care documented in this encounter Plan of Treatment Not on file documented as of this encounter Procedures Procedure Name Priority Date/Time Associated Diagnosis Comments ALBUMIN CREATININE RATIO, URINE Routine 10/13/2020 4:22 PM CDT Type 2 diabetes mellitus with hyperglycemia, without long-term current use of insulin ([facility]) documented in this encounter Results * Albumin Creatinine Ratio, Urine (10/13/2020 4:22 PM CDT) Albumin Ur <12.0 mg/L JOSE FINE H ([place]) Comment: Interpretive Data No reference range established. Current interpretive data was last revised 2018. Testing performed by: [facility], [address] [place] [address]., [address] Creatinine Ur 157.7 mg/dL JOSE MARCELINO ([place]) Comment: Interpretive Data No reference range established. Current interpretive data was last revised 2018. Testing performed by: [address] [address] Albumin Creatinine Ratio, Ur <8 1 - 29 mg/g JOSE MARCELINO ([place]) Comment:Testing performed by : [facility], [address] [place] [address]., [address] Urine 10/13/2020 4:22 PM CDT 10/14/2020 9:43 AM CDT us Jocelynn Coy DO LAB URINE ORDERABLES Final Result JOSE MARCELINO ([place]) 1 [facility] Department [place] [address] documented in this encounter Visit Diagnoses Diagnosis Type 2 diabetes mellitus with hyperglycemia, without long-term current use of insulin ([facility]) documented in this encounter Care Teams Brake Drum Lathe Operator Relationship Specialty Start Date End Date Jocelynn Coy DO PCP - General Family Medicine 06/10/17 09/02/23 documented as of this encounter
--- OUTSIDE RECORDS SUMMARY | 2024-03-31 16:37 | XMS_ITS | Encounter Summary ---
Author Organization [facility] Address [address] [place] [address] Care Team Providers Care Block Out Machine Operator Name Role Phone Jocelynn Coy DO Primary Care Provider +1- [phone] Encounter Details Date Type Department Care Team (Late st Contact Info) Description 02/06/2022 Orders Only [facility] Primary Care at [address] [place] [address] Jocelynn Coy DO [address] [facility] [address] [address] Hearing loss, unspecified hearing loss type, unspecified [...] file Legal Sex Female 8:45 PM DIE WELDER Gender Identity Female 04/25/2021 2:46 PM DIE WELDER Sexual Orientation Straight 04/25/2021 2: 46 PM DIE WELDER documented as of this encounter Plan of Treatment Not on file documented as of this encounter Visit Diagnoses Diagnosis Hearing loss, unspecified hearing loss type, unspecified laterality- Primary documented in this encounter Care Teams Block Out Machine Operator Relationship Specialty Start Date End Date Jocelynn Coy DO PCP - General Family Medicine 06/10/17 09/02/23 documented as of this encounter
--- OUTSIDE RECORDS SUMMARY | 2024-03-31 16:37 | XMS_ITS | Encounter Summary ---
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) Procedures MRI Brain WO Contrast Brian Madera MD [address] [place] [address] [place] [address] Phone: tel: fax: [address] [phone] Referral ID Status Reason Start Date Expiration Date Visits Re quested Visits Authorized [id number] Closed 01/03/2022 04/03/2022 1 1 * Diagnostic Imaging (Routine) - Closed Specialty Diagnoses / Procedures Referred By Jamaal chiang Referred To Contact Diagnoses 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) Procedures FL Fluoro Guided Lumbar Puncture Brian Madera MD [address] [place] [address] [place] [address] Phone: tel: fax: [address] [phone] Referral ID Status Reason Start Date Expiration Date Visits Re quested Visits Authorized [id number] Closed 11/17/2021 12/17/2022 1 1 Reason for Visit * Consultation (Routine) - Closed Specialty Diagnoses / Procedures Referred By Contkurt t Referred To Contact Neurology Diagnoses 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) Jocelynn Coy DO Phone: tel: fax: Brian Madera MD [address] [place] [address] [address] [place] [address] Phone: tel: fax: Referral ID Status Reason Start Date Expiration Date V isits Requested Visits Authorized [id number] Closed Specialty Services Required 09/04/2021 04/14/2023 12 12 Encounter Details Date Type Department Care Team (Late st Contact Info) Description 11/17/2021 9:00 AM CDT Office Visit [facility] [address] [facility] [address] [place] [address] Brian Madera MD [address] [place] [address] [address] [place] [address] 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 [...] on file Legal Sex Female 8:45 PM DEMAND GENERATION MANAGER Gender Identity Female 04/25/2021 2:46 PM DEMAND GENERATION MANAGER Sexual Orientation Straight 04/25/2021 2: 46 PM DEMAND GENERATION MANAGER documented as of this encounter Last [...] dementia. History is kind of limited. 11/17/2021 [place] cognitive assessment (visuospatial/executive -4, naming -1, attention -4, language - 2, delayed recall -5). Diagnoses and all orders for this visit: 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 (CMS/HCC) ([facility]) - FL Fluoro Guided Lumbar Puncture; Future [...] was obtained. ??Prior to beginning the procedure, [place] Protocol was performed to confirm the patient's [...] AM T: ??01/17/2022 9:38 AM Report ID: [id number] Reading Location: ??[id number] Procedure Note Brian Merritt MD - 01/17/2022 [...] Brian Merritt M.D. MF: YONATHAN Report ID: [id number] Reading Location: [place] [address] us Brian Madera MD IMG FLUOROSCOPY PROCEDU [...] ORDERABLES Final Result [facility] ([place]) 1 [facility] Department [place] [address] * Bacterial culture and gram stain, CSF CSF (01/17/2022 8:59 AM CDT) Direct Specimen Exam Stain: Cytospin Gram stain shows: No polymorphonuclear leukocytes seen. No organisms seen. [facility] ([place]) Comment:Testing performed by : [facility], [address] [facility] [place] [address] Report Final Report: No growth [facility] ([place]) Comment:Testing performed by : [facility], [address] [facility] [place] [address] CSF 01/17/2022 8:59 AM CDT 01/17/2022 9:55 AM CDT Narrative JOSE MARCELINO ([place]) - 01/22/2022 9:43 AM CDT Testing performed by [facility] Microbiology Laboratory ([phone]). Brian Madera MD LAB MICROBIOLOGY - GENE RAL ORDERABLES Final Result Performing Organization Address City/[facility]/ZIP Co de Phone Number JOSE MARCELINO ([place]) 1 [facility] Department [place] [address] * (ABNORMAL) Alzheimer???s disease evaluation, CSF (01/17/2022 [...] its performance characteristics determined by [facility] in a manner consistent with CLIA requirements. This test has not been cleared or approved by the U.S. Food and Drug Administration. Test Performed by: [facility] Laboratories - [facility] [address] [place] [address] Top Collar Baster: Farrukh Waggoner M.D. Ph.D.; CLIA# [id number] CSF 01/17/2022 8:59 AM CDT 01/17/2022 9:10 AM CDT Brian Madera MD LAB GENETIC TESTING Fin al Result Performing Organization Address City/[facility]/ZIP Co de Phone Number JOSE MARCELINO ([place]) 1 [facility] [place] [address] * Glucose, CSF (01/17/2022 8:59 AM CDT) Glucose, CSF 77 mg/dL JOSE MARCELINO ([place]) Comment: Reference Interval Information: CSF Glucose should [...] OLS ORDERABLES Final Result Performing Organization Address City/[facility]/ZIP Co de Phone Number JOSE MARCELINO ([place]) 1 [facility] [place] [address] * (ABNORMAL) Protein, total, CSF (01/17/2022 8:59 AM CDT) Protein, CSF 47(H) 5 - 45 mg/dL JOSE MARCEL[facility] ([place]) CSF 01/17/2022 8:59 AM CDT 01/17/2022 9:13 AM CDT us Brian Madera MD LAB BODY FLUIDS AND STO OLS ORDERABLES Final Result JOSE MARCELINO ([place]) 1 [facility] [place] [address] * MRI Brain WO Contrast (01/03/2022 11:28 [...] cerebral hemispheres is nonspecific but compatible with ywbs-sz-gvitxmax chronic microvascular ischemic type change in a [...] AM T: ??01/03/2022 11:40 AM Report ID: [id number] Reading Location: ??[id number] Procedure Note Donaldo Betts, DO - 01/03/2022 [...] cerebral hemispheres is nonspecific but compatible with krox-da-pqjvtbuk chronic microvascular ischemic type change in a [...] Donaldo Betts D.O. AP: AP Report ID: [id number] Reading Location: [place] [address] us Brian Madera MD IMG MRI PROCEDURES Marisel l Result * TSH reflex to free T4 (11/17/2021 10:16 AM CDT) TSH 1.51 0.30 - 4.20 mcIUnit/mL JOSE MARCELINO ([place]) Blood 11/17/2021 10:1 6 AM CDT 11/17/2021 1:51 PM CDT Brian Madera MD LAB BLOOD ORDERABLES Ed ited Result - Final JOSE MARCELINO ([place]) 1 [facility] Department [place] [address] * Folate (11/17/2021 10:16 AM CDT) Folic acid >20.0 >=5.0 ng/mL JOSE MARCELINO ([place]) Comment: Hemolysis present. ??Results may be affected. Testing performed by: [facility], [address] [place] [address]., [address] Blood 11/17/2021 10:1 6 AM CDT 11/17/2021 6:07 PM CDT Brian Madera MD LAB BLOOD ORDERABLES Fi nal Result Performing Organization Address [facility]/ZIP Co de Phone Number JOSE MARCELINO ([place]) 1 [facility] [place] [address] * Vitamin B6 (11/17/2021 10:16 AM CDT) Pyridoxal phosphate (Vit B6) 8 5 - 50 mcg/L JOSE MARCELINO ([place]) Comment: ADDITIONAL INFORMATION This test was developed and its performance characteristics determined by [facility] in a manner consistent with CLIA requirements. This test has not been cleared or approved by the U.S. Food and Drug Administration. Test Performed by: [facility] - [facility] [address] [place] [address] Top Collar Baster: Farrukh Waggoner M.D. Ph.D.; CLIA# [id number] Blood 11/17/2021 10:1 6 AM CDT 11/17/2021 1:51 PM CDT Brian Madera MD LAB BLOOD ORDERABLES Fi nal Result Performing Organization Address [facility]/ZIP Co de Phone Number JOSE MARCELINO ([place]) 1 [facility] [place] [address] * Vitamin B12 (11/17/2021 10:16 AM CDT) Vitamin B12 649 230 - 1,250 pg/mL JOSE MARCELINO ([place]) Comment:Testing performed by : [facility], [address] [place] [address], [place]., [address] Blood 11/17/2021 10:1 6 AM CDT 11/17/2021 6:07 PM CDT us Brian Madera MD LAB BLOOD ORDERABLES Fi nal Result JOSE MARCELINO ([place]) 1 [facility] Department [place] [address] documented in this encounter Visit Diagnoses Diagnosis 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
--- OUTSIDE RECORDS SUMMARY | 2024-03-31 16:37 | XMS_ITS | Encounter Summary ---
Author Organization [facility] Address [address] [facility] [address] [place] [address] Care Team Providers Care Scientific Research Associate Name Role Phone Jocelynn Coy DO Primary Care Provider +1- [phone] Reason for Visit * Reason Comments Essence Enhanced Encounter Encounter Details Date Type Department Care Team (Late st Contact Info) Description 03/30/2021 2:15 PM PLASTIC MOULD MAKER Office Visit [facility] [address] [place] [phone] Jocelynn Coy DO [address] [facility] [address] [address] Annual physical exam (Primary Dx); [...] on file Legal Sex Female 8:45 PM PLASTIC MOULD MAKER Gender Identity Female 04/25/2021 2:46 PM PLASTIC MOULD MAKER Sexual Orientation Straight 04/25/2021 2: 46 PM PLASTIC MOULD MAKER documented as of this encounter Last Filed Vital Signs Vital Sign Reading Time Taken Comments Blood Pressure 108/50 03/30/2021 2:21 PM PLASTIC MOULD MAKER Pulse 67 03/30/2021 2:21 PM PLASTIC MOULD MAKER Temperature 36.5 ??C (97.7 ??F) 03/30/2021 2:21 PM CS T Respiratory Rate 16 03/30/2021 2:21 PM PLASTIC MOULD MAKER Oxygen Saturation 98% 03/30/2021 2:21 PM PLASTIC MOULD MAKER Inhaled Oxygen Concentration - - Weight 59.7 kg (131 lb 11.2 oz) 03/30/2021 2:21 PM PLASTIC MOULD MAKER Height 149.9 cm (4' 11.02 ) 03/30/2021 2:[address] Body Mass Index 26.59 03/30/2021 2:21 PM PLASTIC MOULD MAKER documented in this encounter Patient Instructions * Patient Instructions* Jocelynn Coy, DO - 03/30/2021 2:15 PM PLASTIC MOULD MAKER Images from the original note were not included. Patient Education Wellness Visit for Adults DANCE HISTORIAN: A wellness visit is when you see [...] of viruses cause the flu. The viruses spinning frame changer time, so new vaccines are made each [...] could distract you and cause an accident. cover stripper if you need to make a call [...] boat or doing water sports. ?? 2017 [employer] Information is for End User's use only and may not be sold, redistributed or otherwise used for commercial purposes. All illustrations and images included in CareNotes?? are the copyrighted property of [employer].D.A[employer] Inc[employer] or [employer]. The above information is an vocational aide only. It is not intended as [...] you have any questions or concerns at [phone]. You may receive a phone call, text, MYCHART message, or e-mail asking about your care today. We would love to hear your feedback on how EXCELLENT your care wastoday! Wishing you better health, always. Dr. Coy TIC MOULD MAKER documented in this encounter Ordered Prescriptions Prescription [...] a living will or durable power of collections attorney?: No Would you like information regarding Advanced Directiv (Living Will) and/or Durable Power of Bleacher Sulfite Pulp?: Yes Do you have trouble hearing the [...] with type 2 diabetes mellitus ([facility]) ??? Generalized anxiety disorder ??? BMI 28.0-28.9,adult ??? Type 2 diabetes mellitus with hyperglycemia, without long-term current use of insulin (CMS/HCC)(HCC) ??? Decreased hearing of both ears ??? 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 No pertinent past medical history. [...] 01/10/2021 ALT 12 01/10/2021 MAGNESIUM 2.2 08/10/2014 [facility] Mental Status ([facility]) Assesment Data: Able to state day of [...] Primary Pharmacy/DME suppliers: [id number] [place], [place] - [address] [facility] [address] [facility] [address] Detection of Cognitive Impairment: The patient does [...] Physical Activity Advanced Directive Durable Power of Bleacher Sulfite Pulp: Discussed Today: Living Will: Discussed Today: Assessment [...] the plan were completed as outlined by [facility]. A copy of the prevention plan [...] This note is dictated and transcribed by [employer]. Floor Mechanic variances may occur. Despite proofreading, typographical errors may occur. Jocelynn Coy DO TIC MOULD MAKER documented in this encounter Miscellaneous Notes * Assessment & Plan Note - Jocelynn Coy DO - 03/31/2021 6:27 PM PLASTIC MOULD MAKER Associated Problem(s): Hyperlipidemia associated with type 2 diabetes mellitus (HCC) LDL at goal. Cont current Rx meds. 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 TIC MOULD MAKER * Assessment & Plan Note - Jocelynn Coy DO - 03/31/2021 6:26 PM PLASTIC MOULD MAKER Associated Problem(s): Generalized anxiety disorder Stable. Cont. Current prescription medications. TIC MOULD MAKER documented in this encounter Plan of Treatment Not on file documented as of this encounter Visit Diagnoses Diagnosis Annual physical exam- Primary Routine general medical examination at a [facility] care facility Hyperlipidemia associated with type 2 [...] documented as of this encounter Care Teams Scientific Research Associate Relationship Specialty Start Date End Date Jocelynn Coy DO PCP - General Family Medicine 06/10/17 09/02/23 documented as of this encounter
--- OUTSIDE RECORDS SUMMARY | 2024-03-31 16:37 | XMS_ITS | Encounter Summary ---
Author Organization [facility] Address [address] [facility] [address] [place] [address] Care Team Providers Care Childbirth And Infant Care Teacher Name Role Phone Jocelynn Coy DO Primary Care Provider +1- [phone] Encounter Details Date Type Department Care Team (Late st Contact Info) Description 08/31/2021 ACO Quality [facility] Accountable Care Organization [address] [place] [address] [address] [place] [address] [address] [place] [address] Type 2 diabetes mellitus with hyperglycemia, without long-term current use of insulin ([facility]) ([facility]) (Primary Dx) Social History Tobacco Use Types [...] on file Legal Sex Female 8:45 PM EYEGLASS FRAMES INSPECTOR Gender Identity Female 04/25/2021 2:46 PM EYEGLASS FRAMES INSPECTOR Sexual Orientation Straight 04/25/2021 2: 46 PM EYEGLASS FRAMES INSPECTOR documented as of this encounter Progress Notes [...] the patient's appointment Monserrat Shin Patient Outreach Support Services Coordinator [facility]-O [phone] documented in this encounter Plan of Treatment Not on file documented as of this encounter Results * Albumin Creatinine Ratio, Urine (09/04/2021 12:42 PM CDT) Albumin Ur <12.0 mg/L JOSE Clarke ([place]) Comment: Interpretive Data No reference range established. Current interpretive data was last revised 2018. Testing performed by: [facility], [address] [place] [address]., [address] Creatinine Ur 113.6 mg/dL JOSE MARCELINO ([place]) Comment: Interpretive Data No reference range established. Current interpretive data was last revised 2018. Testing performed by: [facility], [address] [place] [address]., [address] Albumin Creatinine Ratio, Ur <11 1 - 29 mg/g JOSE MARCELINO ([place]) Comment:Testing performed by : [address] [address] Urine 09/04/2021 12:4 2 PM CDT 09/04/2021 8:33 PM CDT Jocelynn Coy DO LAB URINE ORDERABLES Final Result JOSE MARCELINO ([place]) 1 [facility] Department [place] [address] documented in this encounter Visit Diagnoses Diagnosis Type 2 diabetes mellitus with hyperglycemia, without long-term current use of insulin (HCC)- Primary documented in this encounter Care Teams Childbirth And Infant Care Teacher Relationship Specialty Start Date End Date Jocelynn Coy DO PCP - General Family Medicine 06/10/17 09/02/23 documented as of this encounter
--- OUTSIDE RECORDS SUMMARY | 2024-03-31 16:37 | XMS_ITS | Encounter Summary ---
Author Organization [facility] Address [address] [facility] [address] [place] [address] Care Team Providers Care Inspector Fuel Hose Name Role Phone Jocelynn Coy DO Primary Care Provider +1- [phone] Reason for Visit * Reason Onset Date Comments Constipation 11/04/2020 Encounter Details Date Type Department Care Team (Late st Contact Info) Description 11/04/2020 Telephone [facility] [address] [place] [address] Jocelynn Coy DO [address] [facility] [address] [address] Constipation Social History Tobacco Use Types Packs/Day [...] on file Legal Sex Female 8:45 PM INSTRUCTIONAL SYSTEMS DESIGNER Gender Identity Female 04/25/2021 2:46 PM INSTRUCTIONAL SYSTEMS DESIGNER Sexual Orientation Straight 04/25/2021 2: 46 PM INSTRUCTIONAL SYSTEMS DESIGNER documented as of this encounter Miscellaneous [...] two times a day. Usually found at [facility] only. Can ask the pharmacy for help [...] colon documented in this encounter Care Teams Inspector Fuel Hose Relationship Specialty Start Date End Date Jocelynn Coy DO PCP - General Family Medicine 06/10/17 09/02/23 documented as of this encounter
--- OUTSIDE RECORDS SUMMARY | 2024-03-31 16:37 | XMS_ITS | Encounter Summary ---
Author Organization [facility] Address [address] [facility] [address] [place] [address] Care Team Providers Care Rate Clerk Passenger Name Role Phone Jocelynn Coy DO Primary Care Provider +1- [phone] Encounter Details Date Type Department Care Team (Late st Contact Info) Description 01/02/2022 Orders Only [facility] Primary Care at [address] [place] [address] Jocelynn Coy DO [address] [facility] [address] [address] Encounter for diabetic foot exam (CMS/HCC) ([facility]) (Primary Dx) Social History Tobacco Use [...] file Legal Sex Female 8:45 PM DEVELOPMENT AND PLANNING ENGINEER Gender Identity Female 04/25/2021 2:46 PM DEVELOPMENT AND PLANNING ENGINEER Sexual Orientation Straight 04/25/2021 2: 46 PM DEVELOPMENT AND PLANNING ENGINEER documented as of this encounter Plan of Treatment Not on file documented as of this encounter Visit Diagnoses Diagnosis Encounter for diabetic foot exam (CMS/HCC) (HCC)- Primary documented in this encounter Care Teams Rate Clerk Passenger Relationship Specialty Start Date End Date Jocelynn Coy DO PCP - General Family Medicine 06/10/17 09/02/23 documented as of this encounter
--- OUTSIDE RECORDS SUMMARY | 2024-03-31 16:37 | XMS_ITS | Encounter Summary ---
Author Organization [facility] Address [address] [address] Care Team Providers Care Engineering Project Designer Name Role Phone Jocelynn Coy Primary Care Provider +1- [phone] Reason for Referral * Procedure (Routine) - Closed Specialty Diagnoses / Procedures Referred By Jamaal chiang Referred To Contact Diagnoses Abscess of skin of neck Procedures Incision and Drainage Vijaya Dunham PA [address] [place] [address] Phone: tel: fax: [facility] Referral ID Status Reason Start Date Expiration Date Visits Re quested Visits Authorized [id number] Closed 11/06/2021 12/06/2022 1 1 Reason for Visit * Reason Comments Abscess Left side of neck maurer s been here previously for this August of last year. But the past couple weeks daughter noticed it and some drained today Encounter Details Date Type Department Care Team (Late st Contact Info) Description 11/06/2021 7:15 PM CDT Office Visit [facility] [address] [facility] [address] [place] [address] Vijaya Dunham PA [address] [facility] [place] [address] Abscess of skin of neck (Primary Dx) [...] on file Legal Sex Female 8:45 PM THERAPIST RADIATION Gender Identity Female 04/25/2021 2:46 PM THERAPIST RADIATION Sexual Orientation Straight 04/25/2021 2: 46 PM THERAPIST RADIATION documented as of this encounter Last Filed [...] be sent through Care Everywhere. * Abscess (Senior It Business Analyst) (Turkish) documented in this encounter Ordered Prescriptions Prescription [...] Procedure Name Priority Date/Time Associated Diagnosis Comments RI INCISION & DRAINAGE ABSCESS SIMPLE/SINGLE Routine 11/06/2021 7:15 PM CDT Abscess of skin of neck documented in this encounter Results * (ABNORMAL) Aerobic and anaerobic culture and gram stain Abscess Neck, left (11/06/2021 7:24 PM CDT) Direct Specimen Exam Stain: Rare polymorphonuclear leukocytes seen. Few Gram Positive Cocci JOSE Comment:Testing performed by : [facility], [address] [place]., [address] Report Final Report: Few Finegoldia magna (.) JOSE WORKMAN Comment:Testing performed by : [facility], [address] [place]., [address] Organism FINEGOLDIA MAGNA JOSE Abscess (Neck, left) 11/06/2021 7:24 PM CDT 11/07/2021 9:57 AM CDT Narrative JOSE - 11/13/2021 1:17 PM CDT Testing performed by [facility] Laboratory ([phone]) Specimens submitted from normally sterile body sites [...] - GENERAL ORDERABLES Final Result JOSE WORKMAN [address] [place] [address] * RI INCISION & DRAINAGE ABSCESS SIMPLE/SINGLE (11/06/2021 7:15 PM CDT) Narrative Jocelynn Coy DO - 11/06/2021 7:15 PM CDT Vijaya Dunham PA ? 11/06/2021 ??7:25 PM Incision and Drainage Performed by: Vijaya Dunham PA Authorized by: Vijaya Dnuham PA Consent Given by: ??Patient Verbal consent [...] 11/06/2021 documented in this encounter Care Teams Engineering Project Designer Relationship Specialty Start Date End Date Jocelynn Coy DO PCP - General Family Medicine 06/10/17 09/02/23 documented as of this encounter
--- OUTSIDE RECORDS SUMMARY | 2024-03-31 16:37 | XMS_ITS | Encounter Summary ---
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) (HCC) [...] on file Legal Sex Female 8:45 PM HIDE AND SKIN FLESHING MACHINE OPERATOR Gender Identity Female 04/25/2021 2:46 PM HIDE AND SKIN FLESHING MACHINE OPERATOR Sexual Orientation Straight 04/25/2021 2: 46 PM HIDE AND SKIN FLESHING MACHINE OPERATOR documented as of this encounter Discharge [...] 649 230 - 1,250 pg/mL JOSE MARCELINO (EXPORT) Comment:Testing performed by : [facility], [address] [place] [address], [id number] Blood 11/17/2021 10:1 6 AM CDT 11/17/2021 6:07 PM CDT us Brian Madera MD LAB BLOOD ORDERABLES [facility] Result JOSE MARCELINO (EXPORT) 1 [facility] Department [place] [address] * Vitamin B6 (11/17/2021 10:16 AM CDT) Pyridoxal phosphate (Vit B6) 8 5 - 50 mcg/L JOSE MARCELINO (JANE) Comment: ADDITIONAL INFORMATION This test was developed and its performance characteristics determined by [facility] in a manner consistent with CLIA requirements. This test has not been cleared or approved by the U.S. Food and Drug Administration. Test Performed by: [facility] - [address] [address] Shredded Filler Hopper Feeder: Farrukh Waggoner M.D. Ph.D.; CLIA# [id number] Blood 11/17/2021 10:1 6 AM CDT 11/17/2021 1:51 PM CDT Brian Madera MD LAB BLOOD ORDERABLES Fi nal Result JOSE MARCELINO (JANE) 1 [facility] [place] [address] * Folate (11/17/2021 10:16 AM CDT) Folic acid >20.0 >=5.0 ng/mL JOSE CHARI (EXPORT) Comment: Hemolysis present. ??Results may be affected. Testing performed by: [facility], [address] [place] [address]., [id number] Blood 11/17/2021 10:1 6 AM CDT 11/17/2021 6:07 PM CDT us Brian Madera MD LAB BLOOD ORDERABLES Fi nal Result Performing Organization Address [facility] Co de Phone Number JOSE MARCELINO (EXPORT) 1 [place] [address] * TSH reflex to free T4 (11/17/2021 10:16 AM CDT) TSH 1.51 0.30 - 4.20 mcIUnit/mL JOSE MARCELINO (JANE) Blood 11/17/2021 10:1 6 AM CDT 11/17/2021 1:51 PM CDT Brian Madera MD LAB BLOOD ORDERABLES Ed ited Result - Final Performing Organization Address City/[facility]/ZIP Co de Phone Number JOSE MARCELINO (EXPORT) 1 [facility] [place] [address] documented in this encounter Visit Diagnoses Diagnosis 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
--- OUTSIDE RECORDS SUMMARY | 2024-03-31 16:37 | XMS_ITS | Encounter Summary ---
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) Jocelynn Coy DO Phone: tel: fax: Brian Madera MD [address] [place] [address] [address] Phone: tel: fax: Referral ID Status Reason Start Date Expiration Date V isits Requested Visits Authorized [id number] Closed Specialty Services Required 09/04/2021 04/14/2023 12 12 Question Answer Please select the performing region: [facility] [[id number]] Please select the performing department: [facility] [[id number]] To provider: BRIAN MADERA [[id number]] # of visits: 8 Comments Worsening memory problems and hallucinations since starting Exelon patch. Would like a neurologist. SLUMs 19 and Lost in 2019. 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 You may receive a phone call, text, MYCHART message, or e-mail asking about your care today. We would love to hear your feedback on how EXCELLENT your care wastoday! Wishing you better health, always. Dr. Coy * Attachments The following attachments cannot be sent through Care Everywhere. * Medicine Management Before Surgery (Program Rep) (Luxembourger) documented in this encounter Progress Notes * [...] hyperglycemia, without long-term current use of insulin ([facility]) ([facility]) Assessment & Plan: A1c at goal of < 8.0. Cont current mgmt. 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 Development Educator variances may occur. Despite proofreading, typographical errors [...] children were not included. ?? (Diabetes Care 31:2647-1292, 2008). ??The eAG is not equivalent to a fasting glucose. Blood 09/04/2021 12:4 2 PM CDT 09/04/2021 1:29 PM CDT us Jocelynn Cantuclara Coy DO LAB BLOOD ORDERABLES Final Result [facility] (JANE) 1 [facility] [place] [address] * Comprehensive metabolic panel (09/04/2021 12:42 PM [...] ORDERABLES Final Result [facility] (JANE) [address] [facility] [place] [address] * (ABNORMAL) CBC with auto differential (09/04/2021 [...] 41.0 35.7 - 48.1 fL [facility] (JNAE) NRBC abs 0.00 0.00 - 0.01 K/cumm [facility] (JANE) Blood 09/04/2021 12:4 2 PM CDT 09/04/2021 1:29 PM CDT us Jocelynn Coy DO LAB BLOOD ORDERABLES Final Result JOSE MARCELINO ([place]) 1 [facility] [place] [address] * ECG 12 lead (09/04/2021) [...] documented as of this encounter Care Teams Carpenter Inspector Relationship Specialty Start Date End Date Jocelynn Coy DO PCP - General Family Medicine 06/10/17 09/02/23 documented as of this encounter
--- OUTSIDE RECORDS SUMMARY | 2024-03-31 16:37 | XMS_ITS | Encounter Summary ---
Author Organization [facility] Healthcare Address [address] [place] [address] Care Team Providers Care Supervisor Ovens Name Role Phone Jocelynn Coy Primary Care Provider +1- [phone] Encounter Details Date Type Department Care Team (Late st Contact Info) Description 01/10/2022 Telephone [facility] [address] [place] [address] Stefany Carroll, GEMA Social History Tobacco Use [...] on file Legal Sex Female 8:45 PM SEMICONDUCTOR DEVELOPMENT TECHNICIAN Gender Identity Female 04/25/2021 2:46 PM SEMICONDUCTOR DEVELOPMENT TECHNICIAN Sexual Orientation Straight 04/25/2021 2: 46 PM SEMICONDUCTOR DEVELOPMENT TECHNICIAN documented as of this encounter Miscellaneous [...] on filedocumented in this encounter Care Teams Supervisor Ovens Relationship Specialty Start Date End Date Jocelynn Coy DO PCP - General Family Medicine 06/10/17 09/02/23 documented as of this encounter
--- OUTSIDE RECORDS SUMMARY | 2024-03-31 16:37 | XMS_ITS | Encounter Summary ---
Author Organization [facility] Healthcare Address [address] [place] [address] Care Team Providers Care Cadd Operator Name Role Phone Jocelynn Coy DO Primary Care Provider +1- [phone] Encounter Details Date Type Department Care Team (Late st Contact Info) Description 01/10/2021 9:15 AM CDT [address] Jocelynn Coy DO [address] [facility] [address] [place] [address] Berna Shabazz NP [address] [facility] [address] [place] [address] Type 2 diabetes mellitus with hyperglycemia, without long-term current use of insulin ([facility]) ([facility]) Discharge Disposition: Discharge to home or self [...] on file Legal Sex Female 8:45 PM PAINTER MAINTENANCE Gender Identity Female 04/25/2021 2:46 PM PAINTER MAINTENANCE Sexual Orientation Straight 04/25/2021 2: 46 PM PAINTER MAINTENANCE documented as of this encounter Discharge Disposition [...] hyperglycemia, without long-term current use of insulin ([facility]) ([facility]) HEMOGLOBIN A1C Routine 01/10/2021 9:12 AM CDT Type 2 diabetes mellitus with hyperglycemia, without long-term current use of insulin ([facility]) ([facility]) COMPREHENSIVE METABOLIC PANEL Routine 01/10/2021 9:12 AM CDT Type 2 diabetes mellitus with hyperglycemia, without long-term current use of insulin ([facility]) ([facility]) documented in this encounter Results * eGFR [...] ORDERABLES Final Resul t Performing Organization Address [facility] de Phone Number JOSE [facility] ([place]) 1 [facility] [place] [address] * (ABNORMAL) Hemoglobin A1c (01/10/2021 9:12 AM CDT) [facility] Signature Hgb A1C 7.0(H) 4.0 - 5.6 % JOSE MARCELINO (JANE) Estimated Average Glucose 154 mg/dL JOSE [facility] ([place]) Comment: The ADA recommends reporting an estimated Average Glucose (eAG) with all Hemoglobin A1c results using the equation derived from a study of 507 normal and diabetic adults. ??Minority populations were underrepresented and children were not included. ?? (Diabetes Care 31:7076-5884, 2008). ??The eAG is not equivalent to a fasting glucose. Blood 01/10/2021 9:12 AM CDT 01/10/2021 1:28 PM CDT us Berna Shabazz NP LAB BLOOD ORDERABLES Final Resul t Performing Organization Address [facility] Co de Phone Number JOSE [facility] (JANE) 1 [facility] Department [place] [address] * Comprehensive metabolic panel (01/10/2021 9:12 AM CDT) Sodium 139 135 - 145 mmol/L [facility] (JANE) Potassium, pl 4.5 3.3 - 4.9 mmol/L [facility] (JANE) Chloride 102 97 - 110 mmol/L [facility] (JANE) CO2 27 22 - 32 mmol/L [facility] (JANE) Anion gap 10 2 - 15 mmol/L [facility] (JANE) BUN 10 8 - 25 mg/dL [facility] (JAEN) Creatinine 0.62 0.60 - 1.10 mg/dL C[facility]ER [...] BLOOD ORDERABLES Final Resul t [facility]SE [facility] ([place]) 1 [facility] [place] [address] documented in this encounter Visit Diagnoses Diagnosis Type 2 diabetes mellitus with hyperglycemia, without long-term current use of insulin (HCC) documented in this encounter Care Teams Cadd Operator Relationship Specialty Start Date End Date Jocelynn Coy DO PCP - General Family Medicine 06/10/17 09/02/23 documented as of this encounter
--- OUTSIDE RECORDS SUMMARY | 2024-03-31 16:38 | XMS_ITS | Encounter Summary ---
Author Organization [facility] Address [address] [place] [address] Care Team Providers Care Tar Distillation Supervisor Name Role Phone Jocelynn Coy DO Primary Care Provider +1- [phone] Reason for Referral * Consultation (Routine) - Closed Specialty Diagnoses / Procedures Referred By Jamaal chiang Referred To Contact Podiatry Diagnoses Type 2 diabetes mellitus with hyperglycemia, without long-term current use of insulin (HCC) Jocelynn Coy DO Phone: tel: fax: Brian Mims, [facility] [address] [place] [address] Phone: tel: fax: Referral ID Status Reason Start Date Expiration Date V isits Requested Visits Authorized [id number] Closed Specialty Services Required 10/13/2020 11/12/2021 1 1 Question Answer Please select the performing region: External Order [[id number]] To provider: BRIAN MIMS [[id number]] * Consultation (Routine) - Closed Specialty Diagnoses / Procedures Referred By Jamaal chiang Referred To Contact Diabetes and Nutrition Services Diagnoses Type 2 diabetes mellitus with hyperglycemia, without long-term current use of insulin (HCC) Hyperlipidemia associated with type 2 diabetes mellitus (HCC) Jocelynn Coy DO Phone: tel: fax: [facility] [address] [place] [address] Referral ID Status Reason Start Date Expiration Date V isits Requested Visits Authorized [id number] Closed Specialty Services Required 10/13/2020 11/12/2021 1 [...] Follow-up MNT Please select the performing region: [facility] [[id number]] Reason for Visit * Reason Comments Diabetes Hearing Problem Encounter Details Date Type Department Care Team (Late st Contact Info) Description 10/13/2020 2:15 PM CDT Office Visit [facility] of [address] [place] [phone] Jocelynn Coy DO [address] [facility] [address] [address] Type 2 diabetes mellitus with [...] on file Legal Sex Female 8:45 PM TAX ASSOCIATE ATTORNEY Gender Identity Female 04/25/2021 2:46 PM TAX ASSOCIATE ATTORNEY Sexual Orientation Straight 04/25/2021 2: 46 PM TAX ASSOCIATE ATTORNEY documented as of this encounter Last Filed [...] Patient Education Diabetes in the Older Adult INSULATION CUPOLA OPERATOR: What you need to know if you [...] ask them during your visits. ?? 2017 [employer] Information is for End User's use only and may not be sold, redistributed or otherwise used for commercial purposes. All illustrations and images included in CareNotes?? are the copyrighted property of [employer] or [employer]. The above information is an physical science aide only. It is not intended as [...] you have any questions or concerns at [phone]. You may receive a phone call, text, [...] hyperglycemia, without long-term current use of insulin ([facility]) (Primary) Assessment & Plan: Strongly encouraged patient [...] referral to Podiatry Hypertension associated with diabetes ([facility]) Assessment & Plan: Not at goal of < 130/80. Added Lisinopril. Cont amlodipine. Orders: - lisinopriL (PRINIVIL,ZESTRIL) 2.5 mg tablet; Take 1 tablet (2.5 mg total) by mouth daily Hyperlipidemia associated with type 2 diabetes mellitus ([facility]) Assessment & Plan: LDL at goal of [...] Hyperlipidemia associated with type 2 diabetes mellitus ([facility]) LDL at goal of < 70, cont [...] long-term current use of insulin ([facility]) Strongly encouraged patient to take medication as prescribed. Patient agreed. Referral to Diab educator placed. Added LACIE-I for kidney protection. documented in this encounter Plan of Treatment Scheduled Referrals Name Type Priority Associated Diagnoses Order Schedule Ambulatory referral to Diabetic Education & Nutrition Services Outpatient Referral Routine Type 2 diabetes mellitus with hyperglycemia, without long-term current use of insulin ([facility]) Hyperlipidemia associated with type 2 diabetes mellitus ([facility]) Ordered: 10/13/2020 Ambulatory referral to Podiatry Outpatient Referral Routine Type 2 diabetes mellitus with hyperglycemia, without long-term current use of insulin ([facility]) Ordered: 10/13/2020 documented as of this encounter Results * Albumin Creatinine Ratio, Urine (10/13/2020 4:22 PM CDT) Albumin Ur <12.0 mg/L JOSE Clarke (JANE) Comment: Interpretive Data No reference range established. Current interpretive data was last revised 2018. Testing performed by: [facility], [address] [place] [address], [place]., [address] Creatinine Ur 157.7 mg/dL JOSE MARCELINO (JANE) Comment: Interpretive Data No reference range established. Current interpretive data was last revised 2018. Testing performed by: [facility], [address] [place] [address]., [address] Albumin Creatinine Ratio, Ur <8 1 - 29 mg/g JOSE MARCELINO ([place]) Comment:Testing performed by : [facility], [address] [place] [address]., [address] Urine 10/13/2020 4:22 PM CDT 10/14/2020 9:43 AM CDT us Jocelynn Coy DO LAB URINE ORDERABLES Final Result JOSE MARCELINO ([place]) 1 [facility] Department [place] [address] documented in this encounter Visit Diagnoses Diagnosis Type 2 diabetes mellitus with hyperglycemia, without long-term current use of insulin (HCC)- Primary Hypertension associated with diabetes (HCC) Unspecified essential hypertension Hyperlipidemia associated with type 2 diabetes mellitus (HCC) Decreased hearing of both ears documented in this encounter Care Teams Tar Distillation Supervisor Relationship Specialty Start Date End Date Jocelynn Coy DO PCP - General Family Medicine 06/10/17 09/02/23 documented as of this encounter
--- OUTSIDE RECORDS SUMMARY | 2024-03-31 16:38 | XMS_ITS | Encounter Summary ---
Author Organization [facility] Address [address] [facility] [address] [place] [address] Care Team Providers Care Jig Grinder Name Role Phone Jocelynn Coy DO Primary Care Provider +1- [phone] Reason for Visit * Reason Onset Date Comments Test Results 07/09/2019 Encounter Details Date Type Department Care Team (Late st Contact Info) Description 07/09/2019 Telephone [facility] [address] [place] [address] [place] [address] Bibiana Avalos MA Test Results [...] file Legal Sex Female 8:45 PM ASSOCIATE PROFESSOR OF CRIMINAL JUSTICE Gender Identity Female 04/25/2021 2:46 PM ASSOCIATE PROFESSOR OF CRIMINAL JUSTICE Sexual Orientation Straight 04/25/2021 2: 46 PM ASSOCIATE PROFESSOR OF CRIMINAL JUSTICE COVID-19 Exposure Response Date Recorded In the [...] on filedocumented in this encounter Care Teams Jig Grinder Relationship Specialty Start Date End Date Jocelynn Coy DO PCP - General Family Medicine 06/10/17 09/02/23 documented as of this encounter
--- OUTSIDE RECORDS SUMMARY | 2024-03-31 16:38 | XMS_ITS | Encounter Summary ---
Author Organization [facility] Care Team Providers Care Grinder Set Up Operator Thread Name Role Phone Jocelynn Coy DO Primary Care Provider +1- [phone] Encounter Details Date Type Department Care Team [...] on file Legal Sex Female 8:45 PM OUTBOUND SALES REPRESENTATIVE Gender Identity Female 04/25/2021 2:46 PM OUTBOUND SALES REPRESENTATIVE Sexual Orientation Straight 04/25/2021 2: 46 PM OUTBOUND SALES REPRESENTATIVE COVID-19 Exposure Response Date Recorded In the last month, have you been in contact with someone who was confirmed or suspected to have Coronavirus / COVID-19? No / Unsure 07/08/2019 9:17 AM CDT documented as of this encounter Plan of Treatment Not on file documented as of this encounter Visit Diagnoses Not on filedocumented in this encounter Care Teams Grinder Set Up Operator Thread Relationship Specialty Start Date End Date Jocelynn Coy DO PCP - General Family Medicine 06/10/17 09/02/23 documented as of this encounter
--- OUTSIDE RECORDS SUMMARY | 2024-03-31 16:38 | XMS_ITS | Encounter Summary ---
Author Organization [facility] Address [address] [facility] [address] [place] [address] Care Team Providers Care Residential Treatment Staff Name Role Phone Jocelynn Coy DO Primary Care Provider +1- [phone] Reason for Visit * Reason Comments Hypertension f/u Hyperlipidemia Anxiety Encounter Details Date Type Department Care Team (Late st Contact Info) Description 07/22/2019 11:00 AM CDT Telemedicine [facility] [address] [place] [phone] Jocelynn oCy DO [address] [facility] [place] [address] Essential hypertension (Primary Dx); Pure [...] on file Legal Sex Female 8:45 PM SR SOLUTIONS CONSULTANT Gender Identity Female 04/25/2021 2:46 PM SR SOLUTIONS CONSULTANT Sexual Orientation Straight 04/25/2021 2: 46 PM SR SOLUTIONS CONSULTANT COVID-19 Exposure Response Date Recorded In the [...] Telephone. During the visit, I was located [place] and the patient was located [place] The session started at 1103 hrs and [...] documented as of this encounter Care Teams Residential Treatment Staff Relationship Specialty Start Date End Date Jocelynn Coy DO PCP - General Family Medicine 06/10/17 09/02/23 documented as of this encounter
--- OUTSIDE RECORDS SUMMARY | 2024-03-31 16:38 | XMS_ITS | Encounter Summary ---
Author Organization [facility] Address [address] [facility] [address] [place] [address] Care Team Providers Care Dairy Equipment Specialist Name Role Phone Jocelynn Coy DO Primary Care Provider +1- [phone] Reason for Visit * Reason Comments COVID-19 EVALUATION C/o a dry cough, sor e throat, body aches, headaches, and fatigue. Sx started on 08/21/20. Encounter Details Date Type Department Care Team (Late st Contact Info) Description 08/22/2020 5:45 PM CDT Office Visit [facility] [address] [facility] [place] [address] [place] [address] Kristen Vilchis, [place] [address] [facility] [address] Strep pharyngitis (Primary Dx); Cough [...] on file Legal Sex Female 8:45 PM PROP SETTER Gender Identity Female 04/25/2021 2:46 PM PROP SETTER Sexual Orientation Straight 04/25/2021 2: 46 PM PROP SETTER documented as of this encounter Last Filed [...] OF CARE TEST OR DERABLES Final Result [facility] [address] [place] [address] [place] [address] * (ABNORMAL) POCT rapid strep A (08/22/2020 5:52 PM CDT) Rapid Strep A, POC Positive Swab 08/22/2020 5:52 PM CDT Kristen Vilchis INTERLOCKER POINT OF CARE TEST OR DERABLES Final Result documented in this encounter Visit Diagnoses Diagnosis Strep pharyngitis- Primary Cough documented in this encounter Additional Health Concerns Infection Onset Date Last Indicated Resolved Time COVID: Suspected 08/22/2020 08/22/2020 08/22/2020 5:54 PM CDT documented as of this encounter Care Teams Dairy Equipment Specialist Relationship Specialty Start Date End Date Jocelynn Coy DO PCP - General Family Medicine 06/10/17 09/02/23 documented as of this encounter
--- OUTSIDE RECORDS SUMMARY | 2024-03-31 16:38 | XMS_ITS | Encounter Summary ---
Author Organization [facility] Facility Care Team Providers Care Knockout Worker Name Role Phone Jocelynn Coy DO Primary Care Provider +1- [phone] Encounter Details Date Type Department Care Team [...] on file Legal Sex Female 8:45 PM FILER REPAIRER Gender Identity Female 04/25/2021 2:46 PM FILER REPAIRER Sexual Orientation Straight 04/25/2021 2: 46 PM FILER REPAIRER COVID-19 Exposure Response Date Recorded In the last month, have you been in contact with someone who was confirmed or suspected to have Coronavirus / COVID-19? No / Unsure 07/05/2019 6:14 PM CDT documented as of this encounter Plan of Treatment Not on file documented as of this encounter Visit Diagnoses Not on filedocumented in this encounter Care Teams Knockout Worker Relationship Specialty Start Date End Date Jocelynn Coy DO PCP - General Family Medicine 06/10/17 09/02/23 documented as of this encounter
--- OUTSIDE RECORDS SUMMARY | 2024-03-31 16:38 | XMS_ITS | Encounter Summary ---
Author Organization [facility] Facility Care Team Providers Care Concreter Name Role Phone Jocelynn Coy DO Primary Care Provider +1- [phone] Encounter Details Date Type Department Care Team [...] on file Legal Sex Female 8:45 PM BAIT DIGGER Gender Identity Female 04/25/2021 2:46 PM BAIT DIGGER Sexual Orientation Straight 04/25/2021 2: 46 PM BAIT DIGGER documented as of this encounter Plan of Treatment Not on file documented as of this encounter Visit Diagnoses Not on filedocumented in this encounter Care Teams Concreter Relationship Specialty Start Date End Date Jocelynn Coy DO PCP - General Family Medicine 06/10/17 09/02/23 documented as of this encounter
--- OUTSIDE RECORDS SUMMARY | 2024-03-31 16:38 | XMS_ITS | Encounter Summary ---
Author Organization [facility] Medical Group Address [address] [place] [address] Care Team Providers Care Line Out Worker Name Role Phone Jocelynn Coy DO Primary Care Provider +1- [phone] Encounter Details Date Type Department Care Team (Late st Contact Info) Description 09/28/2020 Orders Only [facility] of [address] [place] [address] Jocelynn Coy DO [address] [facility] [address] [id number] Elevated glucose (Primary Dx) Social History Tobacco [...] on file Legal Sex Female 8:45 PM GROUP SEGMENT CONSULTANT Gender Identity Female 04/25/2021 2:46 PM GROUP SEGMENT CONSULTANT Sexual Orientation Straight 04/25/2021 2: 46 PM GROUP SEGMENT CONSULTANT documented as of this encounter Plan of [...] children were not included. ?? (Diabetes Care 31:5066-3285, 2008). ??The eAG is not equivalent to a fasting glucose. Blood specimen (specimen) 10/01/2020 9:47 AM CDT 10/01/2020 10:34 AM CDT us Jocelynn Coy DO LAB BLOOD ORDERABLES Final Result JOSE MARCELINO (JANE) 1 [facility] [place] [address] * (ABNORMAL) Glucose, fasting (10/01/2020 9:47 AM CDT) Glucose, fasting 134(H) 70 - 99 mg/dL JOSE MARCELINO (JANE) Blood specimen (specimen) 10/01/2020 9:47 AM CDT 10/01/2020 10:34 AM CDT us Jocelynn Coy DO LAB BLOOD ORDERABLES Final Result PILARTOMMY CHARI (JANE) 1 [facility] [place] [address] documented in this encounter Visit Diagnoses Diagnosis Elevated glucose- Primary Other abnormal glucose documented in this encounter Care Teams Line Out Worker Relationship Specialty Start Date End Date Jocelynn Coy DO PCP - General Family Medicine 06/10/17 09/02/23 documented as of this encounter
--- OUTSIDE RECORDS SUMMARY | 2024-03-31 16:38 | XMS_ITS | Encounter Summary ---
Author Organization [facility] Medical Group Address [address] [facility] [place] [address] Care Team Providers Care Drapery And Upholstery Estimator Name Role Phone Jocelynn Coy DO Primary Care Provider +1- [phone] Reason for Visit * Reason Comments Medicare Annual Wellness Visit Umairen t Encounter Details Date Type Department Care Team (Late st Contact Info) Description 03/18/2019 11:45 AM ADJUNCT INSTRUCTOR IN ECONOMICS Office Visit [facility] of [address] [place] [phone] Jocelynn Coy DO [address] [place] [address] Annual physical exam (Primary Dx); [...] on file Legal Sex Female 8:45 PM ADJUNCT INSTRUCTOR IN ECONOMICS Gender Identity Female 04/25/2021 2:46 PM ADJUNCT INSTRUCTOR IN ECONOMICS Sexual Orientation Straight 04/25/2021 2: 46 PM ADJUNCT INSTRUCTOR IN ECONOMICS documented as of this encounter Last Filed Vital Signs Vital Sign Reading Time Taken Comments Blood Pressure 147/76 03/18/2019 11:40 AM ADJUNCT INSTRUCTOR IN ECONOMICS Pulse 61 03/18/2019 11:37 AM ADJUNCT INSTRUCTOR IN ECONOMICS Temperature 36.6 ??C (97.8 ??F) 03/18/2019 1 1:37 AM ADJUNCT INSTRUCTOR IN ECONOMICS Respiratory Rate 18 03/18/2019 11:3 7 AM ADJUNCT INSTRUCTOR IN ECONOMICS Oxygen Saturation 96% 03/18/2019 11: 37 AM ADJUNCT INSTRUCTOR IN ECONOMICS Inhaled Oxygen Concentration - - Weight 67.5 kg (148 lb 12.8 oz) 019 11:37 AM ADJUNCT INSTRUCTOR IN ECONOMICS Height 149.9 cm (4' 11 ) 03/18/2019 11: 37 AM ADJUNCT INSTRUCTOR IN ECONOMICS Body Mass Index 30.05 03/18/2019 11:37 AM ADJUNCT INSTRUCTOR IN ECONOMICS documented in this encounter Patient Instructions * Patient Instructions* Jocelynn Coy, DO - 03/18/2019 11:45 AM ADJUNCT INSTRUCTOR IN ECONOMICS Images from the original note were not included. Patient Education Wellness Visit for Adults TRANSPORTATION EQUIPMENT PAINTER: A wellness visit is when you see [...] of viruses cause the flu. The viruses blade changer time, so new vaccines are made [...] could distract you and cause an accident. career discovery teacher if you need to make a call [...] boat or doing water sports. ?? 2017 [employer] Information is for End User's use only and may not be sold, redistributed or otherwise used for commercial purposes. All illustrations and images included in CareNotes?? are the copyrighted property of [employer].A[employer] Inc. or [employer]. The above information is an educational technology coordinator only. It is not intended as medical [...] Topic Date Due Regular Well Visit/Exam 03/14/2019 NCT INSTRUCTOR IN ECONOMICS NCT INSTRUCTOR IN ECONOMICS documented in this encounter Ordered Prescriptions Prescription [...] Directive (Living Will) and/or Durable Power of Robotics Systems Engineer?: No Would you like information regarding Advanced Directiv (Living Will) and/or Durable Power of Robotics Systems Engineer?: Yes Do you have trouble hearing the [...] file Gets together: Not on file Attends confucianist service: Not on file Active member of [...] Essence Attributed PCP Primary Pharmacy/DME suppliers: [id number] [place], [place] - [address] [address] Detection of Cognitive Impairment: The patient does [...] Improve Diet Advanced Directive Durable Power of Robotics Systems Engineer: Discussed Today: Living Will: Discussed Today: Assessment [...] of today's office visit. Jocelynn Coy DO NCT INSTRUCTOR IN ECONOMICS documented in this encounter Miscellaneous Notes * Assessment & Plan Note - Jocelynn Coy DO - 03/18/2019 12:17 PM ADJUNCT INSTRUCTOR IN ECONOMICS Associated Problem(s): BMI 26.0-26.9,adult Unchanged. Encouraged patient to decrease weight, increase daily exercise, and modify diet. NCT INSTRUCTOR IN ECONOMICS * Assessment & Plan Note - Jocelynn Coy DO - 03/18/2019 12:17 PM ADJUNCT INSTRUCTOR IN ECONOMICS Associated Problem(s): Generalized anxiety disorder Clinically improved, continue current meds. NCT INSTRUCTOR IN ECONOMICS * Assessment & Plan Note - Jocelynn Coy DO - 03/18/2019 12:17 PM ADJUNCT INSTRUCTOR IN ECONOMICS Associated Problem(s): Hyperlipidemia associated with type 2 diabetes mellitus (HCC) Clinically improved, continue current meds. NCT INSTRUCTOR IN ECONOMICS * Assessment & Plan Note - Jocelynn Coy DO - 03/18/2019 12:17 PM ADJUNCT INSTRUCTOR IN ECONOMICS Associated Problem(s): Hypertension associated with diabetes (HCC) Waxing and waning, cont current meds. NCT INSTRUCTOR IN ECONOMICS documented in this encounter Plan of Treatment [...] 03/18/2019 documented in this encounter Care Teams Drapery And Upholstery Estimator Relationship Specialty Start Date End Date Jocelynn Coy DO PCP - General Family Medicine 06/10/17 09/02/23 documented as of this encounter
--- OUTSIDE RECORDS SUMMARY | 2024-03-31 16:38 | XMS_ITS | Encounter Summary ---
Author Organization [facility] Healthcare Address [address] [place] [address] Care Team Providers Care Unemployment Insurance Hearing Officer Name Role Phone Jocelynn Coy DO Primary Care Provider +1- [phone] Encounter Details Date Type Department Care Team (Late st Contact Info) Description 09/26/2020 11:40 AM CDT [address] [address] Jocelynn Coy DO [address] [facility] [address] [id number] Essential hypertension; Pure hypercholesterolemia Discharge Disposition: Discharge [...] on file Legal Sex Female 8:45 PM SEASONAL WAREHOUSE ASSOCIATE Gender Identity Female 04/25/2021 2:46 PM SEASONAL WAREHOUSE ASSOCIATE Sexual Orientation Straight 04/25/2021 2: 46 PM SEASONAL WAREHOUSE ASSOCIATE documented as of this encounter Discharge Disposition [...] tomorrow. * Result Encounter Note - Jocelynn Coy DO - 09/29/2020 5:29 PM CDT OK [...] Results * eGFR (09/26/2020 12:54 PM CDT) [facility] eGFR 80 mL/min/1.7 3 m2 JOSE MARCELINO [...] BLOOD ORDERABLES Final Result Performing Organization Address City/State/[facility] Co de Phone Number JOSE MARCELINO ([place]) 1 [facility] [place] [address] * Lipid panel (09/26/2020 12:54 PM CDT) Cholesterol 121 30 - 199 mg/dL JOSE MARCELINO ([place]) Comment: Interpretive Data Ages < or = [...] 2017. Non-HDL Cholesterol 61 mg/dL JOSE MARCELINO ([place]) Comment: Interpretive Data Ages < or = [...] on 2017. Chol/HDL ratio 2 YUKI MARCELINO ([place]) Blood specimen (specimen) 09/26/2020 12:54 PM CDT 09/26/2020 12:54 PM CDT us Jocelynn Coy DO LAB BLOOD ORDERABLES Final Result JOSE MARCELINO ([place]) 1 [facility] [place] [address] * (ABNORMAL) Comprehensive metabolic panel (09/26/2020 12:54 [...] LAB BLOOD ORDERABLES Final Result [facility] ([place]) 1 [facility] Department [place] [address] documented in this encounter Visit Diagnoses Diagnosis Essential hypertension Unspecified essential hypertension Pure hypercholesterolemia documented in this encounter Care Teams Unemployment Insurance Hearing Officer Relationship Specialty Start Date End Date Jocelynn Coy DO PCP - General Family Medicine 06/10/17 09/02/23 documented as of this encounter
--- OUTSIDE RECORDS SUMMARY | 2024-03-31 16:38 | XMS_ITS | Encounter Summary ---
Author Organization [facility] Medical Group Address [address] [place] [address] Care Team Providers Care Swatch Checker Name Role Phone Jocelynn Coy DO Primary Care Provider +1- [phone] Encounter Details Date Type Department Care Team (Late st Contact Info) Description 07/03/2019 Telephone [facility] of [address] [place] [address] Delphine Key MA Social History [...] file Legal Sex Female 8:45 PM GROUP CAPTAIN Gender Identity Female 04/25/2021 2:46 PM GROUP CAPTAIN Sexual Orientation Straight 04/25/2021 2: 46 PM GROUP CAPTAIN documented as of this encounter Miscellaneous Notes [...] on filedocumented in this encounter Care Teams Swatch Checker Relationship Specialty Start Date End Date Jocelynn Coy DO PCP - General Family Medicine 06/10/17 09/02/23 documented as of this encounter
--- OUTSIDE RECORDS SUMMARY | 2024-03-31 16:38 | XMS_ITS | Encounter Summary ---
Author Organization [facility] Healthcare Address [address] [place] [address] Care Team Providers Care Kiln Furniture Caster Name Role Phone Jocelynn Coy DO Primary Care Provider +1- [phone] Encounter Details Date Type Department Care Team (Late st Contact Info) Description 03/24/2020 2:55 PM SOAPSTONER Lab [address] Jocelynn Coy DO [address] [facility] [place] [address] Essential hypertension; Pure hypercholesterolemia Discharge Disposition: Discharge [...] on file Legal Sex Female 8:45 PM SOAPSTONER Gender Identity Female 04/25/2021 2:46 PM SOAPSTONER Sexual Orientation Straight 04/25/2021 2: 46 PM SOAPSTONER documented as of this encounter Discharge Disposition Disposition Code Departure Means Destination Discharge to home or self care documented in this encounter Plan of Treatment Not on file documented as of this encounter Procedures Procedure Name Priority Date/Time Associated Diagnosis Comments EGFR Routine 03/24/2020 2:52 PM SOAPSTONER Essential hypertension Pure hypercholesterolemia DIFFERENTIAL AUTO Routine 03/24/2020 2:5 2 PM SOAPSTONER Essential hypertension URINALYSIS AND REFLEX TO MICROSCOPIC Routine 03/24/2020 2:52 PM SOAPSTONER Essential hypertension CBC WITH AUTO DIFFERENTIAL Routine 03/24/2020 2:52 PM SOAPSTONER Essential hypertension URINALYSIS, MICROSCOPIC ONLY Routine 03/24/2020 2:52 PM SOAPSTONER Essential hypertension LIPID PANEL Routine 03/24/2020 2:52 PM SOAPSTONER Essential hypertension Pure hypercholesterolemia COMPREHENSIVE METABOLIC PANEL Routine 03/24/2020 2:52 PM SOAPSTONER Essential hypertension Pure hypercholesterolemia documented in this encounter Results * eGFR (03/24/2020 2:52 PM SOAPSTONER) eGFR 67 mL/min/1.7 3 m2 JOSE MARCELINO (JANE) Comment: Interpretive Data Reference Interval Normal ?>/= 90 mL/min/1.73m2 Mildly decreased* ? 60 - 89 mL/min/1.73m2 Mildly to moderately decreased ?45 - 59 mL/min/1.73m2 Moderately to severely decreased ??30 - 44 mL/min/1.73m2 Severely decreased ?15 - 29 mL/min/1.73m2 Kidney Failure ?< 15 ??mL/min/1.73m2 *Relative to young adult level If -Jamaican multiply value by 1.16. Estimated glomerular filtration [...] 2015. Blood specimen (specimen) 03/24/2020 2:52 PM SOAPSTONER 03/24/2020 5:06 PM SOAPSTONER us Jocelynn Coy DO LAB BLOOD ORDERABLES Final Result Performing Organization Address City/[facility]/ZIP Co de Phone Number JOSE MARCELINO (JANE) 1 [facility] [place] [address] * (ABNORMAL) Urinalysis, microscopic only (03/24/2020 2:52 PM SOAPSTONER) WBC, ur 0-5 0 - 5 /HPF [facility] (JANE) RBC, ur 0-2 0 - 2 /HPF [facility] (JANE) Epithelial cells, squamous, ur 1-5 0 - 5 /HPF [facility] (JANE) Mucous, ur Present(A) [facility] (GLEN ECHO) Urine 03/24/2020 2:52 PM SOAPSTONER 03/24/2020 5:06 PM SOAPSTONER us Jocelynn Coy DO LAB URINE ORDERABLES Final Result Performing Organization Address [facility] Co de Phone Number JOSE MARCELINO (JANE) 1 [facility] [place] [address] * Differential, auto (03/24/2020 2:52 PM SOAPSTONER) Neutrophil abs 2.5 1.7 - 6.5 K/cumm [...] 2017. Blood specimen (specimen) 03/24/2020 2:52 PM SOAPSTONER 03/24/2020 5:06 PM SOAPSTONER us Jocelynn Coy DO LAB BLOOD ORDERABLES Final Result JOSE MARCELINO (JANE) 1 [facility] Department of Laboratories [place], [place] [address] * Lipid panel (03/24/2020 2:52 PM SOAPSTONER) Cholesterol 164 30 - 199 mg/dL JOSE [...] on 2017. Triglycerides 92 <=149 mg/dL JOSE LIIRANO) Comment: Interpretive Data Ages < or = [...] (JANE) Blood specimen (specimen) 03/24/2020 2:52 PM SOAPSTONER 03/24/2020 5:06 PM SOAPSTONER Jocelynn Coy DO LAB BLOOD ORDERABLES Final Result [facility] (JANE) 1 [facility] [place] [address] * (ABNORMAL) CBC with auto differential (03/24/2020 2:52 PM SOAPSTONER) WBC 5.8 3.8 - 9.9 K/cumm CERNER [...] (JANE) Blood specimen (specimen) 03/24/2020 2:52 PM SOAPSTONER 03/24/2020 5:06 PM SOAPSTONER us Jocelynn Coy DO LAB BLOOD ORDERABLES Final Result [facility] (JANE) 1 [facility] [place] [address] * Comprehensive metabolic panel (03/24/2020 2:52 PM SOAPSTONER) Sodium 137 135 - 145 mmol/L CERNER [...] (JANE) Blood specimen (specimen) 03/24/2020 2:52 PM SOAPSTONER 03/24/2020 5:06 PM SOAPSTONER us Jocelynn Coy DO LAB BLOOD ORDERABLES Final Result [facility] (JANE) 1 [facility] Department [place] [address] * (ABNORMAL) Urinalysis reflex to microscopic (03/24/2020 2:52 PM SOAPSTONER) Color, ur Yellow Yellow [facility] (JANE) [...] [facility] (JANE) Urine 03/24/2020 2:52 PM SOAPSTONER 03/24/2020 5:06 PM SOAPSTONER Narrative [facility] (JANE) - 03/24/2020 5:21 PM SOAPSTONER ?? Urine pH is affected by diet, medications, systemic acid-base disturbances, and renal tubular function. ??pH may affect urinary stone formation. ??For example, urine pH below 6.0 may help reduce the tendency for calcium phosphate stones and pH greater than 6.0 may reduce the tendency for uric acid stone formation. Source: [employer]. Last revised 04-25-2017 us Jocelynn Coy DO LAB URINE ORDERABLES Final Result JOSE MARCELINO (JANE) 1 [facility] Department [place] [address] documented in this encounter Visit Diagnoses Diagnosis Essential hypertension Unspecified essential hypertension Pure hypercholesterolemia documented in this encounter Care Teams Kiln Furniture Caster Relationship Specialty Start Date End Date Jocelynn Coy DO PCP - General Family Medicine 06/10/17 09/02/23 documented as of this encounter
--- OUTSIDE RECORDS SUMMARY | 2024-03-31 16:38 | XMS_ITS | Encounter Summary ---
Author Organization [facility] Healthcare Address [address] [place] [address] Care Team Providers Care Supervisor Policy Change Clerks Name Role Phone Jocelynn Coy DO Primary Care Provider +1- [phone] Encounter Details Date Type Department Care Team (Late st Contact Info) Description 10/01/2020 9:45 AM CDT Lab [address] [address] Jocelynn Coy DO [address] [facility] [address] [address] Elevated glucose Discharge Disposition: Discharge to home [...] file Legal Sex Female 8:45 PM TAX INVESTIGATOR Gender Identity Female 04/25/2021 2:46 PM TAX INVESTIGATOR Sexual Orientation Straight 04/25/2021 2: 46 PM TAX INVESTIGATOR documented as of this encounter Discharge Disposition [...] children were not included. ?? (Diabetes Care 31:3356-7656, 2008). ??The eAG is not equivalent to a fasting glucose. Blood specimen (specimen) 10/01/2020 9:47 AM CDT 10/01/2020 10:34 AM CDT us Jocelynn Coy DO LAB BLOOD ORDERABLES Final Result JOSE MARCELINO (JANE) 1 [facility] [place] [address] * (ABNORMAL) Glucose, fasting (10/01/2020 9:47 AM CDT) Glucose, fasting 134(H) 70 - 99 mg/dL JOSE MARCELINO (JANE) Blood specimen (specimen) 10/01/2020 9:47 AM CDT 10/01/2020 10:34 AM CDT us Jocelynn Coy DO LAB BLOOD ORDERABLES Final Result JOSE MARCELINO ([place]) 1 [facility] [place] [address] documented in this encounter Visit Diagnoses Diagnosis Elevated glucose Other abnormal glucose documented in this encounter Care Teams Supervisor Policy Change Clerks Relationship Specialty Start Date End Date Jocelynn Coy DO PCP - General Family Medicine 06/10/17 09/02/23 documented as of this encounter
--- OUTSIDE RECORDS SUMMARY | 2024-03-31 16:38 | XMS_ITS | Encounter Summary ---
Author Organization [facility] Facility Care Team Providers Care Preparator Name Role Phone Jocelynn Coy DO Primary Care Provider +1- [phone] Encounter Details Date Type Department Care Team [...] on file Legal Sex Female 8:45 PM CANNING MACHINE OPERATOR Gender Identity Female 04/25/2021 2:46 PM CANNING MACHINE OPERATOR Sexual Orientation Straight 04/25/2021 2: 46 PM CANNING MACHINE OPERATOR documented as of this encounter Plan of Treatment Not on file documented as of this encounter Visit Diagnoses Not on filedocumented in this encounter Care Teams Preparator Relationship Specialty Start Date End Date Jocelynn Coy DO PCP - General Family Medicine 06/10/17 09/02/23 documented as of this encounter
--- OUTSIDE RECORDS SUMMARY | 2024-03-31 16:38 | XMS_ITS | Encounter Summary ---
Author Organization [facility] Medical Group Address [address] [place] [address] Care Team Providers Care Reformatory Attendant Name Role Phone Jocelynn Coy DO Primary Care Provider +1- [phone] Encounter Details Date Type Department Care Team (Late st Contact Info) Description 10/03/2020 Orders Only [facility] of [address] [place] [address] Jocelynn Coy DO [address] [facility] [address] [phone] Type 2 diabetes mellitus with hyperglycemia, without long-term current use of insulin ([facility]) (Primary Dx) Social History Tobacco Use [...] on file Legal Sex Female 8:45 PM PHOTOGRAPHIC PROCESS SCREEN MAKER Gender Identity Female 04/25/2021 2:46 PM PHOTOGRAPHIC PROCESS SCREEN MAKER Sexual Orientation Straight 04/25/2021 2: 46 PM PHOTOGRAPHIC PROCESS SCREEN MAKER documented as of this encounter Ordered Prescriptions [...] Primary documented in this encounter Care Teams Reformatory Attendant Relationship Specialty Start Date End Date Joeclynn Coy DO PCP - General Family Medicine 06/10/17 09/02/23 documented as of this encounter
--- OUTSIDE RECORDS SUMMARY | 2024-03-31 16:38 | XMS_ITS | Encounter Summary ---
Author Organization [facility] Medical [facility] Address [address] [place] [address] Care Team Providers Care Dolly Driver Name Role Phone Jocelynn Coy DO Primary Care Provider +1- [phone] Reason for Visit * Reason Comments Hypertension 6mo f/u Encounter Details Date Type Department Care Team (Late st Contact Info) Description 09/22/2020 2:30 PM CDT Office Visit [facility] [address] [place] [phone] Jocelynn Coy DO [address] [place] [address] [address] Essential hypertension (Primary Dx); Pure [...] file Legal Sex Female 8:45 PM MEDICAL PHYSICS TEACHER Gender Identity Female 04/25/2021 2:46 PM MEDICAL PHYSICS TEACHER Sexual Orientation Straight 04/25/2021 2: 46 PM MEDICAL PHYSICS TEACHER documented as of this encounter Last Filed [...] not included. Patient Education DASH Eating Plan SKEIN BANDER: The DASH (Dietary Approaches to Stop Hypertension) [...] add flavor to foods. Try lemon or [place] juice or vinegar to give foods a [...] oil, and liquid and soft tub margarines. [place]-3 fatty acids are found in fatty fish, [...] or 1?? ounces of liquor. ?? 2017 [employer] Information is for End User's use only and may not be sold, redistributed or otherwise used for commercial purposes. All illustrations and images included in CareNotes?? are the copyrighted property of [employer]. or [facility]. The above information is an program aide only. It is not intended as [...] you have any questions or concerns at [phone]. You may receive a phone call, text, [...] * Lipid panel (09/26/2020 12:54 PM CDT) [facility] Cholesterol 121 30 - 199 mg/dL JOSE [...] LDL, calculated 43 <=129 mg/dL JOSE MARCELINO ([place]) Comment: Interpretive Data Ages < or = [...] 2017. Non-HDL Cholesterol 61 mg/dL JOSE MARCELINO ([place]) Comment: Interpretive Data Ages < or = [...] on 2017. Chol/HDL ratio 2 YUKI MARCELINO ([place]) Blood specimen (specimen) 09/26/2020 12:54 PM CDT 09/26/2020 12:54 PM CDT us Jocelynn Coy DO LAB BLOOD ORDERABLES Final Result JOSE MARCELINO ([place]) [address] [facility] Department [place] [address] * (ABNORMAL) Comprehensive metabolic panel (09/26/2020 12:54 [...] LAB BLOOD ORDERABLES Final Result [facility] ([place]) [address] [facility] Department [place] [address] documented in this encounter Visit Diagnoses Diagnosis [...] documented as of this encounter Care Teams Dolly Driver Relationship Specialty Start Date End Date Jocelynn Coy DO PCP - General Family Medicine 06/10/17 09/02/23 documented as of this encounter
--- OUTSIDE RECORDS SUMMARY | 2024-03-31 16:38 | XMS_ITS | Encounter Summary ---
Author Organization [facility] Medical [facility] Address [address] [place] [address] Care Team Providers Care Lead Furnace Operator Name Role Phone Jocelynn Coy Primary Care Provider +1- [phone] Reason for Referral * Procedure (Routine) - Closed Specialty Diagnoses / Procedures Referred By Jamaal chiang Referred To Contact Diagnoses Abscess Procedures Incision and Drainage Jacquelin Quinteros NP Phone: tel: fax: [facility] Referral ID Status Reason Start Date Expiration Date Visits Re quested Visits Authorized [id number] Closed 07/05/2019 01/13/2021 1 1 Reason for [...] Description 07/05/2019 6:15 PM CDT Office Visit [facility] [address] [place] [address] [place] [id number] Jacquelin Quinteros NP [address] [facility] [place] [address] Abscess (Primary Dx) Social History Tobacco Use Types Packs/Day Years Used Date Smoking Tobacco: Never Smokeless Tobacco: Never Alcohol Use Standard Drinks/Week Comments No 0 (1 standard drink = 0.6 oz pur e alcohol) PHQ-2 Answer Date Recorded PHQ-2 Score 0 12/04/2018 Comments Unknown Sex and Gender Information Value Date Recorded Sex Assigned at Not on file Legal Sex Female 8:45 PM MATCH UP PERSON Gender Identity Female 04/25/2021 2:46 PM MATCH UP PERSON Sexual Orientation Straight 04/25/2021 2: 46 PM MATCH UP PERSON COVID-19 Exposure Response Date Recorded In the [...] was updated. JOSE Comment:Testing performed by : [facility], [address] [place]., [address] Report Final Report: Moderate Staphylococcus lugdunensis (.) JOSE Comment:Testing performed by : [facility], [address] [place]., [address] Organism STAPHYLOCOCCUS LUGDUNENSIS JOSE Abscess (Neck, left) 07/05/2019 7:05 PM CDT 07/06/2019 12:06 AM CDT Narrative JOSE - 07/09/2019 11:57 AM CDT Testing performed by [facility] Microbiology Laboratory ([phone]) Specimens submitted from normally sterile body sites [...] GENER AL ORDERABLES Final Result JOSE WORKMAN [address] [place] [address] * Incision and Drainage (07/05/2019 6:15 PM CDT) Jacquelin Ray NP - 07/05/2019 6:15 PM CDT Jacquelin Quinteros NP ? 07/05/2019 ??7:12 PM Incision and Drainage Date/Time: 07/05/2019 7:10 PM Performed by: Jacquelin Quinteors NP Authorized by: Jacquelin Quinteros NP Consent [...] betadine prior to procedure. us Jacquelin Quinteros OPHTHALMIC AIDE IN CLINIC/BEDSIDE ORDERA BLES Final Result documented in this encounter Visit Diagnoses Diagnosis Abscess- Primary Cellulitis and abscess of unspecified site documented in this encounter Historical Medications * This list may reflect changes made after this encounter. Medication Sig Dispense Quantity Refills Last Filled Start D ate End Date tobramycin-dexAMETHas one (TOBRADEX) ophthalmic solution 05/02/201907/21 added in this encounter Care Teams Lead Furnace Operator Relationship Specialty Start Date End Date Jocelynn Coy DO PCP - General Family Medicine 06/10/17 09/02/23 documented as of this encounter
--- OUTSIDE RECORDS SUMMARY | 2024-03-31 16:38 | XMS_ITS | Encounter Summary ---
Author Organization [facility] Medical Group Address [address] [place] [address] Care Team Providers Care Helicopter Mechanic Name Role Phone Jocelynn Coy DO Primary Care Provider +1- [phone] Reason for Visit * Reason Comments Essence Enhanced Encounter Encounter Details Date Type Department Care Team (Late st Contact Info) Description 03/24/2020 1:45 PM YARD DEMURRAGE CLERK Office Visit [facility] [address] [place] [phone] Jocelynn Coy DO [address] [facility] [address] [address] Annual physical exam (Primary Dx); Essential hypertension; [...] on file Legal Sex Female 8:45 PM YARD DEMURRAGE CLERK Gender Identity Female 04/25/2021 2:46 PM YARD DEMURRAGE CLERK Sexual Orientation Straight 04/25/2021 2: 46 PM YARD DEMURRAGE CLERK documented as of this encounter Last Filed Vital Signs Vital Sign Reading Time Taken Comments Blood Pressure 142/68 03/24/2020 2:24 PM YARD DEMURRAGE CLERK Pulse 77 03/24/2020 1:55 PM YARD DEMURRAGE CLERK Temperature 36.2 ??C (97.1 ??F) 03/24/2020 1:55 PM CS T Respiratory Rate 20 03/24/2020 1:55 PM YARD DEMURRAGE CLERK Oxygen Saturation 95% 03/24/2020 1:55 PM YARD DEMURRAGE CLERK Inhaled Oxygen Concentration - - Weight 67.9 kg (149 lb 9.6 oz) 03/24/2020 1:55 P M YARD DEMURRAGE CLERK Height 149.9 cm (4' 11 ) 03/24/2020 1:55 PM YARD DEMURRAGE CLERK Body Mass Index 30.22 03/24/2020 1:55 PM YARD DEMURRAGE CLERK documented in this encounter Patient Instructions * Patient Instructions* Jocelynn Coy, DO - 03/24/2020 1:45 PM YARD DEMURRAGE CLERK Images from the original note were not included. Patient Education Wellness Visit for Adults COLOR DIPPER: A wellness visit is when you see [...] viruses cause the flu. The viruses change of address clerk time, so new vaccines are made [...] could distract you and cause an accident. hydraulic governor assembler if you need to make a call [...] boat or doing water sports. ?? 2017 [employer] Document Preparation Information is for End User's use only and may not be sold, redistributed or otherwise used for commercial purposes. All illustrations and images included in CareNotes?? are the copyrighted property of [employer] or [employer]. The above information is an salesperson hearing aids only. It is not intended as medical advice for individual conditions or treatments. Talk to your doctor, nurse or pharmacist before following any medical regimen to see if it is safe and effective for you. Health Maintenance Topics with due status: Overdue Topic Date Due Zoster Vaccines 09/09/1991 DEMURRAGE CLERK documented in this encounter Ordered Prescriptions Prescription [...] Directive (Living Will) and/or Durable Power of Knockup Worker?: No Would you like information regarding Advanced Directiv (Living Will) and/or Durable Power of Knockup Worker?: No Do you have trouble hearing the [...] file Gets together: Not on file Attends adventist service: Not on file Active member of [...] - General (Family Medicine) Primary Pharmacy/DME suppliers: [facility]/pharmacy #[id number] - [place], [place] - [address] [address] Detection of Cognitive Impairment: The patient does [...] Improve Diet Advanced Directive Durable Power of Knockup Worker: Discussed Today: Living Will: Discussed Today: Assessment [...] of today's office visit. Jocelynn Coy DO DEMURRAGE CLERK documented in this encounter Miscellaneous Notes * Assessment & Plan Note - Jocelynn Coy DO - 03/26/2020 8:15 PM YARD DEMURRAGE CLERK Associated Problem(s): BMI 26.0-26.9,adult Weight reduction, daily exercise and dietary modifications recommended. DEMURRAGE CLERK * Assessment & Plan Note - Jocelynn Coy DO - 03/26/2020 8:15 PM YARD DEMURRAGE CLERK Associated Problem(s): Generalized anxiety disorder Clinically improved, continue current meds. DEMURRAGE CLERK * Assessment & Plan Note - Jocelynn Coy DO - 03/26/2020 8:15 PM YARD DEMURRAGE CLERK Associated Problem(s): Hyperlipidemia associated with type 2 diabetes mellitus (HCC) Good control. Low chol diet recommended. DEMURRAGE CLERK * Assessment & Plan Note - Jocelynn Coy DO - 03/26/2020 8:14 PM YARD DEMURRAGE CLERK Associated Problem(s): Hypertension associated with diabetes (HCC) Within normal range, low sodium diet recommended. Cont current meds. DEMURRAGE CLERK documented in this encounter Plan of Treatment Not on file documented as of this encounter Results * (ABNORMAL) Urinalysis reflex to microscopic (03/24/2020 2:52 PM YARD DEMURRAGE CLERK) Color, ur Yellow Yellow [facility] ([place]) [...] Reflex to microscopic [facility]A [facility] be performed. [facility] Urine 03/24/2020 2:52 PM YARD DEMURRAGE CLERK 03/24/2020 5:06 PM YARD DEMURRAGE CLERK Narrative [facility] ([place] - 03/24/2020 5:21 PM YARD DEMURRAGE CLERK ?? Urine pH is affected by diet, medications, systemic acid-base disturbances, and renal tubular function. ??pH may affect urinary stone formation. ??For example, urine pH below 6.0 may help reduce the tendency for calcium phosphate stones and pH greater than 6.0 may reduce the tendency for uric acid stone formation. Source: [facility] [employer]. Last revised 04-25-2017 us Jocelynn Coy DO LAB URINE ORDERABLES Final Result [facility] ([place]) [address] [facility] Department [place] [address] * Lipid panel (03/24/2020 2:52 PM YARD DEMURRAGE CLERK) Cholesterol 164 30 - 199 mg/dL [facility]ER [...] ([place]) Blood specimen (specimen) 03/24/2020 2:52 PM YARD DEMURRAGE CLERK 03/24/2020 5:06 PM YARD DEMURRAGE CLERK us Jocelynn Cintron Zbigniew DO LAB BLOOD ORDERABLES Final Result [facility] ([place]) 1 [facility] [place] [address] * Comprehensive metabolic panel (03/24/2020 2:52 PM YARD DEMURRAGE CLERK) Sodium 137 135 - 145 mmol/L C[facility]ER [...] ([place]) Blood specimen (specimen) 03/24/2020 2:52 PM YARD DEMURRAGE CLERK 03/24/2020 5:06 PM YARD DEMURRAGE CLERK Jocelynn Coy DO LAB BLOOD ORDERABLES Final Result Performing Organization Address City/[facility]/ZIP Co de Phone Number [facility] ([place]) 1 [facility] [place] [address] * (ABNORMAL) CBC with auto differential (03/24/2020 2:52 PM YARD DEMURRAGE CLERK) WBC 5.8 3.8 - 9.9 K/cumm CERNER [...] ([place]) Blood specimen (specimen) 03/24/2020 2:52 PM YARD DEMURRAGE CLERK 03/24/2020 5:06 PM YARD DEMURRAGE CLERK us Jocelynn Coy DO LAB BLOOD ORDERABLES Final Result Performing Organization Address City/[facility]/ZIP Co de Phone Number [facility] ([place]) 1 [facility] [place] [address] documented in this encounter Visit Diagnoses Diagnosis [...] 03/24/2020 documented in this encounter Care Teams Helicopter Mechanic Relationship Specialty Start Date End Date Jocelynn Coy DO PCP - General Family Medicine 06/10/17 09/02/23 documented as of this encounter
--- OUTSIDE RECORDS SUMMARY | 2024-03-31 16:38 | XMS_ITS | Encounter Summary ---
Author Organization [facility] Medical Group Address [address] [place] [address] Care Team Providers Care Hand Sign Writer Name Role Phone Jocelynn Coy DO Primary Care Provider +1- [phone] Reason for Visit * Reason Comments Hypertension f/u Anxiety Encounter Details Date Type Department Care Team (Late st Contact Info) Description 12/01/2019 11:00 AM CDT Office Visit [facility] [address] [place] [phone] Jocelynn Coy DO [address] [place] [address] Essential hypertension (Primary Dx); Pure hypercholesterolemia; Generalized [...] on file Legal Sex Female 8:45 PM HOSPITAL CARRIER Gender Identity Female 04/25/2021 2:46 PM HOSPITAL CARRIER Sexual Orientation Straight 04/25/2021 2: 46 PM HOSPITAL CARRIER documented as of this encounter Last Filed [...] were not included. Patient Education Chronic Hypertension CONGRESSIONAL ASSISTANT: Hypertension is high blood pressure (BP). Your [...] balance. Check labels to find low-sodium or mu-yugn-zjvfv foods. Some low-sodium foods use potassium salts [...] ask them during your visits. ?? 2017 [email or web address] Information is for End User's use only and may not be sold, redistributed or otherwise used for commercial purposes. All illustrations and images included in CareNotes?? are the copyrighted property of [employer]. or [employer]. The above information is an audiovisual aids technician only. It is not intended as [...] adult documented in this encounter Care Teams Hand Sign Writer Relationship Specialty Start Date End Date Jocelynn Coy DO PCP - General Family Medicine 06/10/17 09/02/23 documented as of this encounter
--- OUTSIDE RECORDS SUMMARY | 2024-03-31 16:38 | XMS_ITS | Encounter Summary ---
Author Organization [facility] Medical Group Address [address] [facility] [address] [place] [address] Care Team Providers Care Boatbuilder Wood Name Role Phone Jocelynn Coy DO Primary Care Provider +1- [phone] Reason for Visit * Reason Comments Boils Patient has a boil o n the left side of her neck that she has been treated for but she feels as if it is not getting any better. Encounter Details Date Type Department Care Team (Late st Contact Info) Description 07/16/2019 5:30 PM CDT Office Visit [facility] [address] [place] [address] Jacquelin Quinteros, [place] [address] [place] [facility] Abscess (Primary Dx) Social History Tobacco Use Types Packs/Day Years Used Date Smoking Tobacco: Never Smokeless Tobacco: Never Alcohol Use Standard Drinks/Week Comments No 0 (1 standard drink = 0.6 oz pur e alcohol) PHQ-2 Answer Date Recorded PHQ-2 Score 0 12/04/2018 Comments Unknown Sex and Gender Information Value Date Recorded Sex Assigned at Not on file Legal Sex Female 8:45 PM SAND OPERATOR Gender Identity Female 04/25/2021 2:46 PM SAND OPERATOR Sexual Orientation Straight 04/25/2021 2: 46 PM SAND OPERATOR COVID-19 Exposure Response Date Recorded In the [...] site documented in this encounter Care Teams Boatbuilder Wood Relationship Specialty Start Date End Date Jocelynn Coy DO PCP - General Family Medicine 06/10/17 09/02/23 documented as of this encounter
--- OUTSIDE RECORDS SUMMARY | 2024-03-31 16:39 | XMS_ITS | Encounter Summary ---
Author Organization [facility] Medical Group Address [address] [place] [address] Care Team Providers Care Material Checker Name Role Phone Jocelynn Coy DO Primary Care Provider +1- [phone] Reason for Visit * Reason Comments Hypertension f/u Hyperlipidemia Anxiety Encounter Details Date Type Department Care Team (Late st Contact Info) Description 08/06/2018 12:45 PM CDT Office Visit [facility] [address] [place] [phone] Jocelynn Coy DO [address] [facility] [address] [place] [address] [place] [address] Essential hypertension (Primary Dx); Pure hypercholesterolemia; Anxiety Social History Tobacco Use Types Packs/Day Years Used Date Smoking Tobacco: Never Smokeless Tobacco: Never Alcohol Use Standard Drinks/Week Comments No 0 (1 standard drink = 0.6 oz pur e alcohol) Comments Unknown Sex and Gender Information Value Date Recorded Sex Assigned at Not on file Legal Sex Female 8:45 PM CHANNEL ROUGHER Gender Identity Female 04/25/2021 2:46 PM CHANNEL ROUGHER Sexual Orientation Straight 04/25/2021 2: 46 PM CHANNEL ROUGHER documented as of this encounter Last Filed [...] were not included. Patient Education Chronic Hypertension AGRIBUSINESS INTERNSHIP: Hypertension is high blood pressure (BP). Your [...] balance. Check labels to find low-sodium or gq-vdhm-kpobi foods. Some low-sodium foods use potassium salts [...] ask them during your visits. ?? 2017 [employer] Information is for End User's use only and may not be sold, redistributed or otherwise used for commercial purposes. All illustrations and images included in CareNotes?? are the copyrighted property of [employer], [employer]. or [employer]. The above information is an occupational rehabilitation [...] documented as of this encounter Care Teams Material Checker Relationship Specialty Start Date End Date Jocelynn Coy DO PCP - General Family Medicine 06/10/17 09/02/23 documented as of this encounter
--- OUTSIDE RECORDS SUMMARY | 2024-03-31 16:39 | XMS_ITS | Encounter Summary ---
Author Organization [facility] Care Team Providers Care Digital Content Coordinator Name Role Phone Jocelynn Coy DO Primary Care Provider +1- [phone] Encounter Details Date Type Department Care Team [...] on file Legal Sex Female 8:45 PM INKJET OPERATOR Gender Identity Female 04/25/2021 2:46 PM INKJET OPERATOR Sexual Orientation Straight 04/25/2021 2: 46 PM INKJET OPERATOR documented as of this encounter Plan of Treatment Not on file documented as of this encounter Visit Diagnoses Not on filedocumented in this encounter Care Teams Digital Content Coordinator Relationship Specialty Start Date End Date Jocelynn Coy DO PCP - General Family Medicine 06/10/17 09/02/23 documented as of this encounter
--- OUTSIDE RECORDS SUMMARY | 2024-03-31 16:39 | XMS_ITS | Encounter Summary ---
Author Organization [facility] Medical Group Address [address] [place] [address] Care Team Providers Care Production Line Solderer Name Role Phone Jocelynn Coy DO Primary Care Provider +1- [phone] Encounter Details Date Type Department Care Team (Late st Contact Info) Description 11/26/2017 Telephone [facility] [address] [place] [address] Jocelynn Coy DO [address] [facility] [address] [address] Social History Tobacco Use Types Packs/Day Years Used Date Smoking Tobacco: Never Smokeless Tobacco: Never Alcohol Use Standard Drinks/Week Comments No 0 (1 standard drink = 0.6 oz pur e alcohol) Comments Unknown Sex and Gender Information Value Date Recorded Sex Assigned at Not on file Legal Sex Female 8:45 PM SENIOR STATISTICIAN Gender Identity Female 04/25/2021 2:46 PM SENIOR STATISTICIAN Sexual Orientation Straight 04/25/2021 2: 46 PM SENIOR STATISTICIAN documented as of this encounter Miscellaneous Notes [...] time! Thanks for choosing [facility] [place] as a member of your healthcare team! Jocelynn Coy DO documented in this encounter Plan of Treatment Not on file documented as of this encounter Visit Diagnoses Not on filedocumented in this encounter Care Teams Production Line Solderer Relationship Specialty Start Date End Date Jocelynn Coy DO PCP - General Family Medicine 06/10/17 09/02/23 documented as of this encounter
--- OUTSIDE RECORDS SUMMARY | 2024-03-31 16:39 | XMS_ITS | Encounter Summary ---
Author Organization [facility] Healthcare Address [address] [place] [address] Care Team Providers Care Mysql Database Developer Name Role Phone Unavailable Primary Care Provider Unavailabl e Encounter Details Date Type Department Care Team (Late st Contact Info) Description 08/10/2014 2:32 PM CDT - 08/10/2014 6:20 PM CDT Hospital Encounter [facility] Stella Osei, DO [address] [place] [address] Palpitations; Essential hypertension; Type 2 or unspecified type diabetes mellitus Social History Tobacco Use Types Packs/Day Years Used Date Smoking Tobacco: Never Assessed Comments Unknown Sex and Gender Information Value Date Recorded Sex Assigned at Not on file Legal Sex Female 8:45 PM CALL OR CONTACT CENTRE TEAM LEADER Gender Identity Female 04/25/2021 2:46 PM CALL OR CONTACT CENTRE TEAM LEADER Sexual Orientation Straight 04/25/2021 2: 46 PM CALL OR CONTACT CENTRE TEAM LEADER documented as of this encounter Plan of [...] recommendations. Plasma 08/10/2014 4:00 PM CDT Result [facility] Historical Provider MD LAB BLOOD ORDERABLES Marisel l Result Performing Organization Address [facility] de Phone Number HISTORICAL RESULTS * Plasma troponin-T (08/10/2014 4:00 PM CDT) Troponin T <0.01 0.00 - 0.06 ng/ml HISTORICAL RESULTS Plasma 08/10/2014 4:00 PM CDT Result [facility] Historical Provider MD LAB BLOOD ORDERABLES Marisel l Result Performing Organization Address [facility] de Phone Number HISTORICAL RESULTS * Blood Pro B-type natriuretic peptide (08/10/2014 4:00 PM CDT) Pro BNP 81.0 10.0 - 150.0 pg/ml HISTORICAL RESULTS Blood specimen (specimen) 08/10/2014 4:00 PM CDT Result [facility] Historical Provider MD LAB BLOOD ORDERABLES Marisel l Result Performing Organization Address [facility] de Phone Number HISTORICAL RESULTS * Serum magnesium (08/10/2014 4:00 PM CDT) Magnesium 2.2 1.6 - 2.4 mg/dl HISTORICAL RESULTS Serum 08/10/2014 4:00 PM CDT Historical Provider LAB BLOOD ORDERABLES Marisel valencia Result Performing Organization Address [facility] de Phone Number HISTORICAL RESULTS * [...] specimen (specimen) 08/10/2014 4:00 PM CDT Result [facility] Historical Provider LAB BLOOD ORDERABLES Marisel valencia Result Performing Organization Address [facility] de Phone Number HISTORICAL RESULTS * [...] 11:31 AM CDT XR Chest Portable ? [id number] ??Acc#: ??[id number] DATE OF EXAM: ??Aug 10 2014 CLINICAL [...] Fax: ??-- Attending ID: ?? Requesting ID: ??[id number] Report To 1 ID: ??[id number] Report To 1 Name: ??STELLA OSEI Report To 1 FAX: ??-- NextGen Order #: Procedure Note Provider, MD Thanh - 08/19/2016 XR Chest Portable [id number] Acc#: [id number] DATE OF EXAM: Aug 10 2014 CLINICAL [...] Attending Fax: -- Attending ID: Requesting ID: [id number] Report To 1 ID: [id number] Report To 1 Name: STELLA OSEI Report To 1 FAX: -- NextGen Order #: us Historical Provider MD HERNANDEZ XR PROCEDURES Final R esult * Discharge Laboratory Cumulative Report (08/10/2014 12:00 AM CDT) 08/10/2014 Narrative HISTORICAL RESULTS - 08/11/2014 12:43 AM CDT Patient No: [id number] ? [facility] Patient Name: MNADO CALLAHAN ?[facility] Age: 73 YRS ?: 1940 ?Sex:F ?[address] )[phone] ?? Adm Dt: 08/10/2014 ?[place], [place] ??[address] Created: 08/11/2014 ??0043 ?? Pt. Type: E [...] ?? CONTINUED ?Page: ?? 1 Patient No: [id number] ? [facility] Patient Name: MANDO CALLAHAN ?[facility] Age: 73 YRS ?: 1940 ?Sex:F ?[address] )[phone] ?? Adm Dt: 08/10/2014 ?[place] ??[address] Created: 08/11/2014 ??0043 ?? Pt. Type: E [...] ?? CONTINUED ?Page: ?? 2 Patient No: [id number] ? [facility] Patient Name: MANDO CALLAHAN ?[facility] Healthcare Age: 73 YRS ?: 1940 ?Sex:F ?[address] )[phone] ?? Adm Dt: 08/10/2014 ?[place], [place] ??[address] Created: 08/11/2014 ??0043 ?? Pt. Type: E [...] ?? CONTINUED ?Page: ?? 3 Patient No: [id number] ? [facility] Patient Name: MANDO CALLAHAN ?[facility] Age: 73 YRS ?: 1940 ?Sex:F ?[address] )[phone] ?? Adm Dt: 08/10/2014 ?[place], [place] ??[address] Created: 08/11/2014 ??0043 ?? Pt. Type: E [...]
--- OUTSIDE RECORDS SUMMARY | 2024-03-31 16:39 | XMS_ITS | Encounter Summary ---
Author Organization [facility] Healthcare Address [address] [place] [address] Care Team Providers Care Marine Farmer Name Role Phone Unavailable Primary Care Provider [...] on file Legal Sex Female 8:45 PM GUIDE ESCORT Gender Identity Female 04/25/2021 2:46 PM GUIDE ESCORT Sexual Orientation Straight 04/25/2021 2: 46 PM GUIDE ESCORT documented as of this encounter Plan of Treatment Not on file documented as of this encounter Visit Diagnoses Diagnosis Palpitations Acute reaction to stress Unspecified acute reaction to stress documented in this encounter
--- OUTSIDE RECORDS SUMMARY | 2024-03-31 16:39 | XMS_ITS | Encounter Summary ---
Author Organization [facility] Address [address] [place] [address] Care Team Providers Care Foreign Broadcast Specialist Name Role Phone Jocelynn Coy DO Primary Care Provider [phone]- [phone] Encounter Details Date Type Department Care Team (Late st Contact Info) Description 11/21/2017 Orders Only [facility] [address] [place] [address] Jocelynn Coy DO [address] [facility] [address] [address] Social History Tobacco Use Types Packs/Day Years Used Date Smoking Tobacco: Never Smokeless Tobacco: Never Alcohol Use Standard Drinks/Week Comments No 0 (1 standard drink = 0.6 oz pur e alcohol) Comments Unknown Sex and Gender Information Value Date Recorded Sex Assigned at Not on file Legal Sex Female 8:45 PM VP PUBLIC RELATIONS Gender Identity Female 04/25/2021 2:46 PM VP PUBLIC RELATIONS Sexual Orientation Straight 04/25/2021 2: 46 PM VP PUBLIC RELATIONS documented as of this encounter Plan of [...] auto differential (11/21/2017 3:16 PM CDT) Pathologist [facility] WBC 6.0 3.8 - 10.8 Thousand/ uL [...] Performing Organization Information: ?Site ID: [place] ?Name: [facility] ?Address: [facility] [place] [address] ?Director: Farrukh Molina D.O., MPH us Jocelynn Coy DO LAB BLOOD ORDERABLES Final Result Performing Organization Address City/State/[facility] Co de Phone Number [facility] [...] [place] Comment: ??CULTURE, URINE, ROUTINE ?MICRO NUMBER: ?[id number] ??TEST STATUS: ? FINAL ??SPECIMEN SOURCE: ?? [...] Agency Comment Performing Organization Information: ?Site ID: [place] ?Name: [facility] ?Address: [address] [place] [id number] ?Director: Farrukh Molina D.O., MPH us Jocelynn Coy DO LAB MICROBIOLOGY - GENERAL ORDERABLES Final Result [facility] - [place], [place] * Comprehensive metabolic panel (11/21/2017 3:16 PM CDT) Glucose 97 65 - 139 mg/dL [facility] - [place] Comment: ? Non-fasting reference interval BUN 14 7 - 25 mg/dL [facility] [place] Creatinine 0.68 0.60 - 0.93 mg/dL [facility] [place] Comment: For patients >49 years of age, the reference limit for Creatinine is approximately 13% higher for people identified as -Wallisian. eGFR NON-AFR. SOMALI 85 > OR = 60 mL/min/1 .73m2 [...] [place] Calcium 9.5 8.6 - 10.4 mg/dL [facility] - [place] Protein, sr 7.0 6.1 - 8.1 g/dL [facility] [place] Albumin 3.8 3.6 - 5.1 g/dL [facility] [place] GLOBULIN 3.2 1.9 - 3.7 g/dL (calc) [facility] [place] Alb/glob ratio 1.2 1.0 - 2.5 (calc) [facility] [place] Bilirubin, total 0.3 0.2 - 1.2 mg/dL [facility] [place] Alk phos 76 33 - 130 U/L [facility] [place] AST 15 10 - 35 U/L [facility] [place] ALT (SGPT) 13 6 - 29 U/L [facility] [place] 11/21/2017 3:16 PM CDT 11/21/2017 3:17 PM CDT Narrative [facility] - 11/22/2017 11:13 PM CDT FASTING:NO FASTING: NO Resulting Agency Comment Performing Organization Information: ?Site ID: [place] ?Name: [facility] ?Address: [address] [place] [address] [place] [address] ?Director: Farrukh Molina D.O., MPH us Jocelynn Coy DO LAB BLOOD ORDERABLES Final Result [facility] [place] * Lipid panel (11/21/2017 3:16 PM CDT) Cholesterol 170 <200 mg/dL [facility] [place] HDL 60 >50 mg/dL [facility] [place] Triglycerides 141 <150 mg/dL [facility] LDL 86 mg/dL (calc) [facility] Comment: Reference range: <100 Desirable range <100 mg/dL for primary prevention; ?? <70 mg/dL for patients with CHD or diabetic patients with > or = 2 CHD risk factors. LDL-C is now calculated using the Miguel calculation, which is a validated novel method providing better accuracy than the Friedewald equation in the estimation of LDL-C. Lavelle CORTES et al. SAYDA. 2013;310(19): 7660-7069 (http://education.Seat 14A.Joobili/faq/NOT713) Chol/HDL ratio 2.8 <5.0 (calc) [facility] [...] Performing Organization Information: ?Site ID: [place] ?Name: [facility] ?Address: [address] [place] [address] [place] [phone] ?Director: Farrukh Molina D.O., MPH us Jocelynn Coy DO LAB BLOOD ORDERABLES Final Result [facility] [place] documented in this encounter Visit Diagnoses Not on filedocumented in this encounter Care Teams Foreign Broadcast Specialist Relationship Specialty Start Date End Date Jocelynn Coy DO PCP - General Family Medicine 06/10/17 09/02/23 documented as of this encounter
--- OUTSIDE RECORDS SUMMARY | 2024-03-31 16:39 | XMS_ITS | Encounter Summary ---
Author Organization [facility] Address [address] [facility] [address] [place] [address] Care Team Providers Care Dulser Name Role Phone Jocelynn Coy DO Primary Care Provider +1- [phone] Reason for Visit * Reason Comments Hypertension 6 month f/u Hyperlipidemia Encounter Details Date Type Department Care Team (Late st Contact Info) Description 12/06/2017 11:45 AM CDT Office Visit [facility] [address] [place] [phone] Jocelynn Coy DO [address] [facility] [address] [address] Essential hypertension (Primary Dx); Pure hypercholesterolemia; Anxiety Social History Tobacco Use Types Packs/Day Years Used Date Smoking Tobacco: Never Smokeless Tobacco: Never Alcohol Use Standard Drinks/Week Comments No 0 (1 standard drink = 0.6 oz pur e alcohol) Comments Unknown Sex and Gender Information Value Date Recorded Sex Assigned at Not on file Legal Sex Female 8:45 PM CHILDRENS CLUB ATTENDANT Gender Identity Female 04/25/2021 2:46 PM CHILDRENS CLUB ATTENDANT Sexual Orientation Straight 04/25/2021 2: 46 PM CHILDRENS CLUB ATTENDANT documented as of this encounter Last Filed [...] not included. Patient Education DASH Eating Plan BUILDING MAINTENANCE TECHNICIAN: The DASH (Dietary Approaches to Stop Hypertension) [...] add flavor to foods. Try lemon or southern ute juice or vinegar to give foods a [...] oil, and liquid and soft tub margarines. [place]-3 fatty acids are found in fatty fish, [...] or 1?? ounces of liquor. ?? 2017 [employer] Information is for End User's use only and may not be sold, redistributed or otherwise used for commercial purposes. All illustrations and images included in CareNotes?? are the copyrighted property of [employer]. or [employer]. The above information is an educational assistant teacher only. It is not intended as [...] months. * Assessment & Plan Note - Joceylnn Coy DO - 12/06/2017 12:59 PM CDT [...] documented as of this encounter Care Teams Dulser Relationship Specialty Start Date End Date Jocelynn Coy DO PCP - General Family Medicine 06/10/17 09/02/23 documented as of this encounter
--- OUTSIDE RECORDS SUMMARY | 2024-03-31 16:39 | XMS_ITS | Encounter Summary ---
Author Organization [facility] Address [address] [place] [address] Care Team Providers Care Apns Name Role Phone Jocelynn Coy DO Primary Care Provider +1- [phone] Reason for Visit * Reason Comments Hypertension f/u Hyperlipidemia Anxiety Encounter Details Date Type Department Care Team (Late st Contact Info) Description 09/03/2018 11:45 AM CDT Office Visit [facility] of [address] [place] [phone] Jocelynn Coy DO [address] [facility] [address] [address] Essential hypertension (Primary Dx); Pure [...] on file Legal Sex Female 8:45 PM NEGATIVE SPOTTER Gender Identity Female 04/25/2021 2:46 PM NEGATIVE SPOTTER Sexual Orientation Straight 04/25/2021 2: 46 PM NEGATIVE SPOTTER documented as of this encounter Last Filed [...] Patient Education Hypertension in the Older Adult MOPHEAD SEWER: Hypertension is high blood pressure (BP). Your [...] BP. Check labels to find low-sodium or lf-zhyh-dxsvl foods. Some low-sodium foods use potassium salts [...] ask them during your visits. ?? 2017 [employer] Information is for End User's use only and may not be sold, redistributed or otherwise used for commercial purposes. All illustrations and images included in CareNotes?? are the copyrighted property of [employer] or [facility]. The above information is an maid cleaning cooking only. It is not intended as medical [...] 29.0-29.9,adult documented in this encounter Care Teams Apns Relationship Specialty Start Date End Date Jocelynn Coy DO PCP - General Family Medicine 06/10/17 09/02/23 documented as of this encounter
--- OUTSIDE RECORDS SUMMARY | 2024-03-31 16:39 | XMS_ITS | Encounter Summary ---
Author Organization [facility] Address [address] [place] [address] Care Team Providers Care Production Or Plant Engineer Name Role Phone Jocelynn Coy DO Primary Care Provider [phone]- [phone] Reason for Visit * Reason Comments Medicare Annual Wellness Visit Subsequen t Encounter Details Date Type Department Care Team (Late st Contact Info) Description 03/14/2018 12:00 PM OUTSIDE UPHOLSTERER Office Visit [facility] of [address] [place] [phone] Jocelynn Coy DO [address] [place] [address] Medicare annual wellness visit, subsequent [...] OUTSIDE UPHOLSTERER documented as of this encounter Last Filed Vital Signs Vital Sign Reading Time Taken Comments Blood Pressure 138/73 03/14/2018 12:20 PM OUTSIDE UPHOLSTERER Pulse 75 03/14/2018 12:20 PM OUTSIDE UPHOLSTERER Temperature 36.7 ??C (98 ??F) 03/14/2018 12:20 PM OUTSIDE UPHOLSTERER Respiratory Rate 16 03/14/2018 12:20 PM OUTSIDE UPHOLSTERER Oxygen Saturation 98% 03/14/2018 12:20 PM OUTSIDE UPHOLSTERER Inhaled Oxygen Concentration - - Weight 68.7 kg (151 lb 6.4 oz) 03/14/2018 12:20 PM OUTSIDE UPHOLSTERER Height 149.9 cm (4' 11 ) 03/14/2018 12:20 PM OUTSIDE UPHOLSTERER Body Mass Index 30.58 03/14/2018 12:20 PM OUTSIDE UPHOLSTERER documented in this encounter Patient Instructions * Patient Instructions* Jocelynn Coy, DO - 03/14/2018 12:33 PM OUTSIDE UPHOLSTERER Images from the original note were not included. Patient Education Wellness Visit for Adults GENETICS TEACHER: A wellness visit is when you see [...] of viruses cause the flu. The viruses foreign exchange services manager time, so new vaccines are made [...] could distract you and cause an accident. boiler coverer if you need to make a [...] boat or doing water sports. ?? 2016 [employer]. Information is for End User's use only and may not be sold, redistributed or otherwise used for commercial purposes. All illustrations and images included in CareNotes?? are the copyrighted property of [employer] or [employer]. The above information is an director educational radio only. It is not intended as medical advice for individual conditions or treatments. Talk to your doctor, nurse or pharmacist before following any medical regimen to see if it is safe and effective for you. IDE UPHOLSTERER IDE UPHOLSTERER documented in this encounter Progress Notes * [...] Score: 0 Advanced Directive Durable Power of Signal Tower Director: No Living Will: No Assessment/Plan Diagnoses and [...] screening and monitoring guidelines. Jocelynn Coy DO IDE UPHOLSTERER documented in this encounter Miscellaneous Notes * Assessment & Plan Note - Jocelynn Coy DO - 03/14/2018 12:52 PM OUTSIDE UPHOLSTERER Associated Problem(s): Generalized anxiety disorder Stable. Cont. Current meds. Lorazepam 0.5 mg q6 h prn IDE UPHOLSTERER * Assessment & Plan Note - Jocelynn Coy DO - 03/14/2018 12:51 PM OUTSIDE UPHOLSTERER Associated Problem(s): Hyperlipidemia associated with type 2 diabetes mellitus (HCC) Lipid abnormalities are improving with treatment. Nutritional counseling was provided. and Pharmacotherapy as ordered. Lipids will be reassessed 4 months. Atorvastatin 20mg po qd IDE UPHOLSTERER * Assessment & Plan Note - Jocelynn Coy DO - 03/14/2018 12:51 PM OUTSIDE UPHOLSTERER Associated Problem(s): Hypertension associated with diabetes (HCC) Hypertension is improving with treatment. Continue current treatment regimen. Dietary sodium restriction. Weight loss. Regular aerobic exercise. Continue current medications. Ambulatory blood pressure monitoring. Blood pressure will be reassessed at the next regular appointment. Amlodipine 10 mg qd IDE UPHOLSTERER documented in this encounter Plan of Treatment [...] 03/14/2018 documented in this encounter Care Teams Production Or Plant Engineer Relationship Specialty Start Date End Date Jocelynn Coy DO PCP - General Family Medicine 06/10/17 09/02/23 documented as of this encounter
--- OUTSIDE RECORDS SUMMARY | 2024-03-31 16:39 | XMS_ITS | Encounter Summary ---
Author Organization [facility] Address [address] [place] [address] Care Team Providers Care Sling Operator Name Role Phone No, Physician Primary Care Provider [phone] Reason for Visit * Reason Comments Hypertension new patient Hyperlipidemia Encounter Details Date Type Department Care Team (Late st Contact Info) Description 06/07/2017 12:00 PM COUNSELING SERVICES MANAGER Office Visit [facility] of [address] [place] [phone] Jocelynn Coy, DO [address] [facility] [address] [address] Essential hypertension (Primary Dx); Pure hypercholesterolemia; Anxiety Social History Tobacco Use Types Packs/Day Years Used Date Smoking Tobacco: Never Smokeless Tobacco: Never Alcohol Use Standard Drinks/Week Comments No 0 (1 standard drink = 0.6 oz pur e alcohol) Comments Unknown Sex and Gender Information Value Date Recorded Sex Assigned at Not on file Legal Sex Female 8:45 PM COUNSELING SERVICES MANAGER Gender Identity Female 04/25/2021 2:46 PM COUNSELING SERVICES MANAGER Sexual Orientation Straight 04/25/2021 2: 46 PM COUNSELING SERVICES MANAGER documented as of this encounter Last Filed Vital Signs Vital Sign Reading Time Taken Comments Blood Pressure 132/71 06/07/2017 12:10 PM COUNSELING SERVICES MANAGER Pulse 79 06/07/2017 12:10 PM COUNSELING SERVICES MANAGER Temperature 36.6 ??C (97.9 ??F) 06/07/2017 12:[address] Respiratory Rate 16 06/07/2017 12:10 PM COUNSELING SERVICES MANAGER Oxygen Saturation 98% 06/07/2017 12:10 PM COUNSELING SERVICES MANAGER Inhaled Oxygen Concentration - - Weight 72 kg (158 lb 11.2 oz) 06/07/2017 12:10 P M COUNSELING SERVICES MANAGER Height 152.4 cm (5') 06/07/2017 12:10 PM COUNSELING SERVICES MANAGER Body Mass Index 30.99 06/07/2017 12:10 PM COUNSELING SERVICES MANAGER documented in this encounter Patient Instructions * Patient Instructions* Jocelynn Coy, DO - 06/07/2017 12:33 PM COUNSELING SERVICES MANAGER Images from the original note were not included. Patient Education Chronic Hypertension NURSE SUPERVISOR: Chronic hypertension is a long-term condition in [...] ask them during your visits. ?? 2016 [employer]. Information is for End User's use only and may not be sold, redistributed or otherwise used for commercial purposes. All illustrations and images included in CareNotes?? are the copyrighted property of [employer] or [employer]. The above information is an teachers aide only. It is not intended as medical advice for individual conditions or treatments. Talk to your doctor, nurse or pharmacist before following any medical regimen to see if it is safe and effective for you. SELING SERVICES MANAGER SELING SERVICES MANAGER documented in this encounter Ordered Prescriptions [...] 6 (six) hours as needed for anxiety. SELING SERVICES MANAGER documented in this encounter Miscellaneous Notes * Assessment & Plan Note - Jocelynn Coy DO - 06/07/2017 1:13 PM COUNSELING SERVICES MANAGER Associated Problem(s): Generalized anxiety disorder Stable. Refill given. SELING SERVICES MANAGER * Assessment & Plan Note - Jocelynn Coy DO - 06/07/2017 1:13 PM COUNSELING SERVICES MANAGER Associated Problem(s): Hyperlipidemia associated with type 2 diabetes mellitus (HCC) Lipid abnormalities are unchanged. Nutritional counseling was provided. and Pharmacotherapy as ordered. Lipids will be reassessed in 6 months. SELING SERVICES MANAGER * Assessment & Plan Note - Jocelynn Coy, - 06/07/2017 1:13 PM COUNSELING SERVICES MANAGER Associated Problem(s): Hypertension associated with diabetes (HCC) Hypertension is unchanged. Continue current treatment regimen. Dietary sodium restriction. Regular aerobic exercise. Continue current medications. Blood pressure will be reassessed at the next regular appointment. SELING SERVICES MANAGER documented in this encounter Plan of [...] 06/07/2017 added in this encounter Care Teams Sling Operator Relationship Specialty Start Date End Date No, Physician PCP - General 02/21/17 06/09/17 documented as of this encounter
== END 2024-03-28 02:21 | disposition home or self-care (01) ==
PROVIDERS: Emergency Provider Student in an Organized Health Care Education/Training Program; PCP Family Medicine
DX: K59.00 Constipation, unspecified (principal)
CPT/HCPCS: 36415; 80053; 81001; 83690; 85025; 96360; 99283; J7120